=== PATIENT | female | born 1960 | race Caucasian/White ===

== ENCOUNTER 2022-04-07 17:14 | Emergency (ER) | payer OTHER ==
[2022-04-07 17:40] VITALS: TEMP 98.8
--- NOTE | 2022-04-07 18:10 | ED ---
Abdominal Pain HPI - General Chief Complaint: Abdominal Pain Stated Complaint: Rib & abd pain,SOB Time Seen by Provider: 04/07/22 17:43 Source: patient Mode of arrival: ambulatory Limitations: no limitations - History of Present Illness Initial Comments: 61-year-old female presents to emergency departments with abdominal pain and distention. Reports that she's had pain under her left breast which extends into her abdomen which has been going on for a period of time however is getting worse. She feels like she is having more abdominal distention. Reports to increased frequency in urination to the point where she has had some incontinence. She admits to constipation which has gotten more significant. She uses fiber supplements to make her go. No fevers or chills. No jaundice. Denies use of [id number] Tylenol but does take [place] as prescribed. No alcohol use. She admits to a history of tachycardia and takes propranolol however this medication usually does not controlled her symptoms well. She denies any vaginal bleeding or discharge. No history of HI. Does admit to some exertional shortness of breath. No other alleviating, precipitating or modifying factors - Related Data Home Medications Medication Instructions Recorded Confirmed Citalopram Hydrobromide [CeleXA] 20 mg PO DIRECTED 04/07/22 04/07/22 Dextroamphetamine/Amphetamine 20 mg PO DAILY@1300 04/07/22 04/07/22 [Adderall Xr 20 mg Capsule] Dextroamphetamine/Amphetamine 30 mg PO DAILY@0700 04/07/22 04/07/22 [Adderall Xr 30 mg Capsule] HYDROcodone/APAP 7.5-325MG [[place] 1 tab PO QID PRN 04/07/22 04/07/22 7.5-325] Propranolol LA [Inderal LA] 80 mg PO DAILY 04/07/22 04/07/22 Triamterene/Hydrochlorothiazid 1 tab PO DAILY 04/07/22 04/07/22 [Triamterene-Hctz 37.5-25 mg Tb] clonazePAM [KlonoPIN] 0.5 mg PO BID PRN 04/07/22 04/07/22 Allergies Allergy/AdvReac Type Severity Reaction Status Date / Time risperidone [From Risperdal] AdvReac SPASMS, Verified 04/07/22 21:28 AGGITATION Review of Systems ROS Statement: Those systems with pertinent positive or pertinent negative responses have been documented in the HPI. ROS Other: All systems not noted in ROS Statement are negative. Past Medical History Additional Past Medical History / Comment(s): SVT History of Any Multi-Drug Resistant Organisms: None Reported Past Surgical History: Appendectomy, Hysterectomy, Orthopedic Surgery Additional Past Surgical History / Comment(s): knee surgery Past Psychological History: Depression Smoking Status: Current every day smoker Past Alcohol Use History: None Reported Past Drug Use History: None Reported General Exam Limitations: no limitations General appearance: alert, in no apparent distress Head exam: Present: atraumatic, normocephalic, normal inspection Eye exam: Present: normal appearance, PERRL, EOMI. Absent: scleral icterus, conjunctival injection, periorbital swelling ENT exam: Present: normal exam, mucous membranes moist Neck exam: Present: normal inspection. Absent: tenderness, meningismus, lymphadenopathy Respiratory exam: Present: normal lung sounds bilaterally. Absent: respiratory distress, wheezes, rales, rhonchi, stridor Cardiovascular Exam: Present: normal rhythm, tachycardia, normal heart sounds. Absent: systolic murmur, diastolic murmur, rubs, gallop, clicks GI/Abdominal exam: Present: soft, distended, tenderness (Generalized), normal bowel sounds, other (No fluid wave). Absent: guarding, rebound, rigid Extremities exam: Present: normal inspection, full ROM, normal capillary refill. Absent: tenderness, pedal edema, joint swelling, calf tenderness Back exam: Present: normal inspection Neurological exam: Present: alert, oriented X3, CN II-XII intact Psychiatric exam: Present: normal affect, normal mood Skin exam: Present: warm, dry, intact, normal color. Absent: rash Course Vital Signs 04/07/22 04/07/22 04/07/22 17:35 19:02 21:38 Temperature 98.8 F Pulse Rate 129 H 115 H 85 Respiratory 22 18 15 Rate Blood Pressure 140/72 125/78 133/84 O2 Sat by Pulse 99 94 L 98 Oximetry Medical Decision Making - Medical Decision Making Upon arrival patient is placed into room 1. A thorough history and physical exam was performed. IV access was established and laboratory studies are conducted. Patient was given a dose of morphine for her pain. Laboratory studies are reviewed and demonstrate elevated d-dimer 0.82. Lactic acid is 2.8. Troponin negative. Urinalysis demonstrates small leukocyte esterase with rare bacteria. Due to the elevated d-dimer I did complete a CT of the chest. This demonstrates no evidence of pulmonary embolism. Diffuse groundglass attenuation to the lungs bilaterally. Enlarging pulmonate trunk indicating sequelae of pulmonary hypertension. CT of the abdomen and pelvis demonstrates hepatomegaly. Results are discussed the patient. I did recommend overnight observation for echo and cardiology evaluation. Patient would prefer to obtain outpatient evaluation. She is aware of the risks of leaving and the need to return for any new or worsening symptoms. Patient is of sound mind and capable of making her own decisions. I do feel that the patient needs an echo, EGD and colonoscopy for further evaluation of her symptoms. Patient was agreeable to this plan and discharged home in stable condition - Lab Data Result diagrams: 04/07/22 18:29 04/07/22 18:29 Lab Results 04/07/22 04/07/22 04/07/22 Range/Units 18:29 18:29 18:29 WBC 8.0 (3.8-10.6) k/uL RBC 4.94 (3.80-5.40) m/uL Hgb 15.5 (11.4-16.0) gm/dL Hct 44.4 (34.0-46.0) % MCV 89.8 (80.0-100.0) fL MCH 31.4 (25.0-35.0) pg MCHC 34.9 (31.0-37.0) g/dL RDW 14.0 (11.5-15.5) % Plt Count 246 (150-450) k/uL MPV 8.5 Neutrophils % 68 % Lymphocytes % 21 % Monocytes % 6 % Eosinophils % 1 % Basophils % 1 % Neutrophils # 5.4 (1.3-7.7) k/uL Lymphocytes # 1.7 (1.0-4.8) k/uL Monocytes # 0.5 (0-1.0) k/uL Eosinophils # 0.1 (0-0.7) k/uL Basophils # 0.1 (0-0.2) k/uL PT 10.2 (9.0-12.0) sec INR 0.9 (<1.2) APTT 26.4 (22.0-30.0) sec D-Dimer 0.82 H (<0.60) mg/L FEU Sodium 138 (137-145) mmol/L Potassium 3.5 (3.5-5.1) mmol/L Chloride 99 (98-107) mmol/L Carbon Dioxide 23 (22-30) mmol/L Anion Gap 16 mmol/L BUN 21 H (7-17) mg/dL Creatinine 0.71 (0.52-1.04) mg/dL Est GFR (CKD-EPI)AfAm >90 (>60 ml/min/1.73 sqM) Est GFR (CKD-EPI)NonAf >90 (>60 ml/min/1.73 sqM) Glucose 111 H (74-99) mg/dL Lactic Ac Sepsis Rflx Plasma Lactic Acid Terrence (0.7-2.0) mmol/L Calcium 9.4 (8.4-10.2) mg/dL Total Bilirubin 0.8 (0.2-1.3) mg/dL AST 46 H (14-36) U/L ALT 38 H (4-34) U/L Alkaline Phosphatase 125 (38-126) U/L Troponin I (0.000-0.034) ng/mL Total Protein 8.2 (6.3-8.2) g/dL Albumin 5.1 H (3.5-5.0) g/dL Lipase 42 (23-300) U/L Urine Color Urine Appearance (Clear) Urine pH (5.0-8.0) Ur Specific [place] (1.001-1.035) Urine Protein (Negative) Urine Glucose (UA) (Negative) Urine Ketones (Negative) Urine Blood (Negative) Urine Nitrite (Negative) Urine Bilirubin (Negative) Urine Urobilinogen (<2.0) mg/dL Ur Leukocyte Esterase (Negative) Urine RBC (0-5) /hpf Urine WBC (0-5) /hpf Ur Squamous Epith Cells (0-4) /hpf Urine Bacteria (None) /hpf Hyaline Casts (0-2) /lpf Urine Mucus (None) /hpf 04/07/22 04/07/22 04/07/22 Range/Units 18:29 18:29 18:37 WBC (3.8-10.6) k/uL RBC (3.80-5.40) m/uL Hgb (11.4-16.0) gm/dL Hct (34.0-46.0) % MCV (80.0-100.0) fL MCH (25.0-35.0) pg MCHC (31.0-37.0) g/dL RDW (11.5-15.5) % Plt Count (150-450) k/uL MPV Neutrophils % % Lymphocytes % % Monocytes % % Eosinophils % % Basophils % % Neutrophils # (1.3-7.7) k/uL Lymphocytes # (1.0-4.8) k/uL Monocytes # (0-1.0) k/uL Eosinophils # (0-0.7) k/uL Basophils # (0-0.2) k/uL PT (9.0-12.0) sec INR (<1.2) APTT (22.0-30.0) sec D-Dimer (<0.60) mg/L FEU Sodium (137-145) mmol/L Potassium (3.5-5.1) mmol/L Chloride (98-107) mmol/L Carbon Dioxide (22-30) mmol/L Anion Gap mmol/L BUN (7-17) mg/dL Creatinine (0.52-1.04) mg/dL Est GFR (CKD-EPI)AfAm (>60 ml/min/1.73 sqM) Est GFR (CKD-EPI)NonAf (>60 ml/min/1.73 sqM) Glucose (74-99) mg/dL Lactic Ac Sepsis Rflx Plasma Lactic Acid Terrence 2.8 H* (0.7-2.0) mmol/L Calcium (8.4-10.2) mg/dL Total Bilirubin (0.2-1.3) mg/dL AST (14-36) U/L ALT (4-34) U/L Alkaline Phosphatase (38-126) U/L Troponin I <0.012 (0.000-0.034) ng/mL Total Protein (6.3-8.2) g/dL Albumin (3.5-5.0) g/dL Lipase (23-300) U/L Urine Color Yellow Urine Appearance Clear (Clear) Urine pH 5.5 (5.0-8.0) Ur Specific [place] 1.027 (1.001-1.035) Urine Protein Trace H (Negative) Urine Glucose (UA) Negative (Negative) Urine Ketones Negative (Negative) Urine Blood Small H (Negative) Urine Nitrite Negative (Negative) Urine Bilirubin Negative (Negative) Urine Urobilinogen <2.0 (<2.0) mg/dL Ur Leukocyte Esterase Small H (Negative) Urine RBC 4 (0-5) /hpf Urine WBC 3 (0-5) /hpf Ur Squamous Epith Cells 3 (0-4) /hpf Urine Bacteria Rare H (None) /hpf Hyaline Casts 5 H (0-2) /lpf Urine Mucus Few H (None) /hpf 04/07/22 Range/Units 19:07 WBC (3.8-10.6) k/uL RBC (3.80-5.40) m/uL Hgb (11.4-16.0) gm/dL Hct (34.0-46.0) % MCV (80.0-100.0) fL MCH (25.0-35.0) pg MCHC (31.0-37.0) g/dL RDW (11.5-15.5) % Plt Count (150-450) k/uL MPV Neutrophils % % Lymphocytes % % Monocytes % % Eosinophils % % Basophils % % Neutrophils # (1.3-7.7) k/uL Lymphocytes # (1.0-4.8) k/uL Monocytes # (0-1.0) k/uL Eosinophils # (0-0.7) k/uL Basophils # (0-0.2) k/uL PT (9.0-12.0) sec INR (<1.2) APTT (22.0-30.0) sec D-Dimer (<0.60) mg/L FEU Sodium (137-145) mmol/L Potassium (3.5-5.1) mmol/L Chloride (98-107) mmol/L Carbon Dioxide (22-30) mmol/L Anion Gap mmol/L BUN (7-17) mg/dL Creatinine (0.52-1.04) mg/dL Est GFR (CKD-EPI)AfAm (>60 ml/min/1.73 sqM) Est GFR (CKD-EPI)NonAf (>60 ml/min/1.73 sqM) Glucose (74-99) mg/dL Lactic Ac Sepsis Rflx Y Plasma Lactic Acid [place] (0.7-2.0) mmol/L Calcium (8.4-10.2) mg/dL Total Bilirubin (0.2-1.3) mg/dL AST (14-36) U/L ALT (4-34) U/L Alkaline Phosphatase (38-126) U/L Troponin I (0.000-0.034) ng/mL Total Protein (6.3-8.2) g/dL Albumin (3.5-5.0) g/dL Lipase (23-300) U/L Urine Color Urine Appearance (Clear) Urine pH (5.0-8.0) Ur Specific [place] (1.001-1.035) Urine Protein (Negative) Urine Glucose (UA) (Negative) Urine Ketones (Negative) Urine Blood (Negative) Urine Nitrite (Negative) Urine Bilirubin (Negative) Urine Urobilinogen (<2.0) mg/dL Ur Leukocyte Esterase (Negative) Urine RBC (0-5) /hpf Urine WBC (0-5) /hpf Ur Squamous Epith Cells (0-4) /hpf Urine Bacteria (None) /hpf Hyaline Casts (0-2) /lpf Urine Mucus (None) /hpf - EKG Data EKG Comments: EKG demonstrates sinus tachycardia with a rate of 121. W[place] interval 198. QRS 72. QTC of 410. No acute ST segment elevations or depressions Disposition Clinical Impression: Chest pain, Tachycardia, Abdominal distension, Pulmonary hypertension Disposition: HOME SELF-CARE Condition: Stable Instructions (If sedation given, give patient instructions): Chest Pain (ED) Additional Instructions: You need to follow up with a dba developer for your tachycardia. I recommend an echo of you heart as you are experiencing shortness of breath when your walk. We did see signs of pulmonary hypertension on your imaging therefore a pulmonary consultation is warranted if echo is normal. For your abdominal pain, next imaging study should be EGD and colonoscopy. I did offer hospital admission. Should you have any new or worsening symptoms, please return to the ED. See your doctor in 2-4 days to start the remainder of your workup which was listed above. Is patient prescribed a controlled substance at d/c from ED?: No Referrals: Nirav Santos MD [Primary Care Provider] - 1-2 days Time of Disposition: 21:35
[2022-04-07] MEDS ORDERED: MORPHINE SULFATE 4 MG/ML SYRINGE IVP STA (18:11)
[2022-04-07 18:39] LABS: Basophils # (A) 0.1 k/uL (0-0.2); Basophils % (A) 1 %; Eosinophils # (A) 0.1 k/uL (0-0.7); Eosinophils % (A) 1 %; HCT 44.4 % (34.0-46.0); HGB 15.5 gm/dL (11.4-16.0); Lymphocytes # (A) 1.7 k/uL (1.0-4.8); Lymphocytes % (A) 21 %; MCH 31.4 pg (25.0-35.0); MCHC 34.9 g/dL (31.0-37.0); MCV 89.8 fL (80.0-100.0); Mean Platelet Volume 8.5; Monocytes # (A) 0.5 k/uL (0-1.0); Monocytes % (A) 6 %; Neutrophils # (A) 5.4 k/uL (1.3-7.7); Neutrophils % (A) 68 %; Platelet Count 246 k/uL (150-450); RBC 4.94 m/uL (3.80-5.40)
[2022-04-07 18:51] LABS: ALT 38 U/L (4-34); AST 46 U/L (14-36); African American GFR (CKD) >90 (>60 ml/min/1.73 sqM); Albumin 5.1 g/dL (3.5-5.0); Alkaline Phosphatase 125 U/L (38-126); Anion Gap 16 mmol/L; Blood Urea Nitrogen 21 mg/dL (7-17); Calcium 9.4 mg/dL (8.4-10.2); Carbon Dioxide 23 mmol/L (22-30); Chloride 99 mmol/L (98-107); Glucose 111 mg/dL (74-99); INR 0.9 (<1.2); Lipase 42 U/L (23-300); Non-African American GFR(CKD) >90 (>60 ml/min/1.73 sqM); Partial Thromboplastin Time 26.4 sec (22.0-30.0); Potassium 3.5 mmol/L (3.5-5.1); Prothrombin Time 10.2 sec (9.0-12.0); Sodium 138 mmol/L (137-145); Total Bilirubin 0.8 mg/dL (0.2-1.3); Total Protein 8.2 g/dL (6.3-8.2)
[2022-04-07 18:51] LABS: Appearance,Urine Clear (Clear); Bacteria,Urine Rare /hpf; Bilirubin,Urine Negative (Negative); Blood,Urine Small (Negative); Color,Urine Yellow; Glucose,Urine (UA) Negative (Negative); Hyaline Casts,Urine 5 /lpf (0-2); Ketones,Urine Negative (Negative); Leukocyte Esterase,Urine Small (Negative); Mucus,Urine Few /hpf; Nitrite,Urine Negative (Negative); PH, Urine 5.5 (5.0-8.0); Protein,Urine Trace (Negative); RBC,Urine 4 /hpf (0-5); Specific Gravity,Urine 1.027 (1.001-1.035); Squamous Epithelial Cell,Urine 3 /hpf (0-4); Urobilinogen,Urine <2.0 mg/dL (<2.0); WBC,Urine 3 /hpf (0-5)
--- NOTE | 2022-04-07 20:09 | CT ---
EXAMINATION TYPE: CT abdomen pelvis w con CT DLP: 1260.1 mGycm, Automated exposure control for dose reduction was used. DATE OF EXAM: 04/07/2022 7:29 PM COMPARISON: CTA chest and 2021, CT abdomen pelvis 01/03/2015 CLINICAL INDICATION:Female, 61 years old with history of abdominal pain; chest and abdominal pain TECHNIQUE: Axial CT of the abdomen and pelvis. Sagittal and coronal reformats were created on a rocket staff workstation. Contrast used: 100 mL of Isovue 300 with IV Contrast, Oral contrast used: without Oral Contrast FINDINGS: LOWER CHEST: Posterior dependent subsegmental atelectasis is noted. ABDOMEN LIVER: Diffusely hypoattenuating parenchyma. GALLBLADDER AND BILE DUCTS: Unremarkable. PANCREAS: Unremarkable. SPLEEN: Unremarkable. ADRENAL GLANDS: Unremarkable. KIDNEYS AND URETERS: No evidence of hydronephrosis or renal calculus. The ureters are unremarkable. PELVIS BLADDER: Incompletely distended but grossly unremarkable. REPRODUCTIVE: Unremarkable. ABDOMEN & PELVIS STOMACH AND BOWEL: Stomach and duodenum are unremarkable. Scattered diverticula are noted throughout the colon. No evidence of bowel obstruction. PERITONEUM: No evidence of pneumoperitoneum or free fluid. VASCULATURE: Mild atherosclerotic calcifications are present throughout the abdominal aorta and its b ranches. No evidence of aortic aneurysm. MUSCULOSKELETAL: No acute osseous abnormalities LYMPH NODES: No gross evidence for lymphadenopathy. SOFT TISSUE/ABDOMINAL WALL: Unremarkable IMPRESSION: 1. No acute intra-abdominal or intrapelvic process. 2. Hepatic steatosis and other incidental findings as detailed above.
--- NOTE | 2022-04-07 20:15 | CT ---
EXAMINATION TYPE: CT chest angio for PE CT DLP: 1260.1 mGycm, Automated exposure control for dose reduction was used. DATE OF EXAM: 04/07/2022 7:29 PM COMPARISON: CT abdomen pelvis 04/07/2022 CLINICAL INDICATION:Female, 61 years old with history of cp, tachycardia; chest and abdominal pain TECHNIQUE/CONTRAST: CTA scan of the thorax is performed with IV Contrast, patient injected with 100 mL of Isovue 300, pul monary embolism protocol. MIP images are created and reviewed. FINDINGS: Pulmonary Artery: There is no evidence for a filling defect within the pulmonary vasculature to sugge st acute pulmonary embolism. The pulmonary artery is enlarged measuring 3.6 cm in width. Lungs/Pleura: Diffuse ground glass attenuation throughout the lungs bilaterally. This is nonspecific and may be attributed to phase of respiration. Left lingular and bibasilar subsegmental atelectasis. No focal airspace consolidation. No pneumothorax or pleural effusion. Airway: Large airways are patent. Heart: The heart is mildly enlarged for size.. Vasculature: No evidence of aortic aneurysm. Mediastinum: No gross evidence of adenopathy. Musculoskeletal: No acute osseous abnormalities Soft Tissues: Unremarkable. Lower neck: No significant findings. Upper Abdomen: Please pertain to the abdomen dictated separately on same-day CT. IMPRESSION: 1. No evidence of pulmonary embolism. 2. Diffuse groundglass attenuation to the lungs bilaterally. This is nonspecific and may be seen with phase of respiration. Correlate clinically for acute infectious or inflammatory etiologies. 3. Enlarged pulmonary trunk indicating sequelae of pulmonary hypertension.
[2022-04-07 21:39] VITALS: BP 133/84; PULSE 85; RESP 15
== END 2022-04-07 21:50 | disposition home or self-care (01) ==
LOC: EC 17:14
DX: I27.20 Pulmonary hypertension, unspecified (principal); R00.0 Tachycardia, unspecified; F17.200 Nicotine dependence, unspecified, uncomplicated; Z88.8 Allergy status to other drugs, medicaments and biological substances
CPT/HCPCS: 36415; 93005; 85379; 80053; 83605; 83690; 84484; 85025; 85610; 85730; 81001; 71275; 74177; 99285; 96374; Q9967; 96376

== ENCOUNTER 2022-04-22 14:55 | Inpatient (IN) | payer OTHER ==
[2022-04-22 15:52] LABS: Basophils # (A) 0.1 k/uL (0-0.2); Basophils % (A) 1 %; Eosinophils # (A) 0.1 k/uL (0-0.7); Eosinophils % (A) 1 %; HCT 45.9 % (34.0-46.0); HGB 16.1 gm/dL (11.4-16.0); Lymphocytes # (A) 1.8 k/uL (1.0-4.8); Lymphocytes % (A) 20 %; MCH 31.6 pg (25.0-35.0); MCV 90.3 fL (80.0-100.0); Mean Platelet Volume 8.2; Monocytes # (A) 0.4 k/uL (0-1.0); Monocytes % (A) 5 %; Neutrophils # (A) 6.2 k/uL (1.3-7.7); Neutrophils % (A) 70 %; Platelet Count 257 k/uL (150-450); RBC 5.09 m/uL (3.80-5.40); RDW 14.2 % (11.5-15.5); WBC 8.8 k/uL (3.8-10.6)
[2022-04-22 16:00] LABS: ALT 40 U/L (4-34); AST 42 U/L (14-36); African American GFR (CKD) >90 (>60 ml/min/1.73 sqM); Alkaline Phosphatase 118 U/L (38-126); Anion Gap 13 mmol/L; Blood Urea Nitrogen 16 mg/dL (7-17); Calcium 9.9 mg/dL (8.4-10.2); Carbon Dioxide 28 mmol/L (22-30); Chloride 96 mmol/L (98-107); Glucose 104 mg/dL (74-99); Non-African American GFR(CKD) >90 (>60 ml/min/1.73 sqM); Sodium 137 mmol/L (137-145); Total Bilirubin 0.6 mg/dL (0.2-1.3); Total Protein 8.4 g/dL (6.3-8.2)
[2022-04-22 16:01] LABS: INR 0.9 (<1.2); Partial Thromboplastin Time 24.3 sec (22.0-30.0); Prothrombin Time 10.3 sec (9.0-12.0)
[2022-04-22] MEDS ORDERED: LORazepam 2 MG/ML INJ IV STA (16:01)
--- NOTE | 2022-04-22 16:09 | ED ---
General Adult HPI - General Chief complaint: Chest Pain Stated complaint: Chest Pain,Vomiting,Chills Time Seen by Provider: 04/22/22 15:50 Source: patient, RN notes reviewed, old records reviewed Mode of arrival: ambulatory Limitations: no limitations - History of Present Illness Initial comments: This is a 61-year-old female presents emergency Department complaining of chest pain that radiates to her back and her arm. Patient states his been intermi ttent for a year. Patient states she also gets short of breath with it. Patient came in today because the pain got so bad she became nauseated and started vomiting and was extremely lightheaded. Patient states she is a smoker. Patient denies a history of high blood pressure high cholesterol or diabetes. Patient denies any recent fever chills or cough. Patient denies any swelling in her legs or calf tenderness. Patient denies any abdominal pain. Patient denies being nauseated currently. Patient states she does have a history of tachycardia and even at rest she's never under 100 beats a minute. - Related Data Home Medications Medication Instructions Recorded Confirmed Citalopram Hydrobromide [CeleXA] 20 mg PO DIRECTED 04/07/22 04/07/22 Dextroamphetamine/Amphetamine 20 mg PO DAILY@1300 04/07/22 04/07/22 [Adderall Xr 20 mg Capsule] Dextroamphetamine/Amphetamine 30 mg PO DAILY@0700 04/07/22 04/07/22 [Adderall Xr 30 mg Capsule] HYDROcodone/APAP 7.5-325MG [[place] 1 tab PO QID PRN 04/07/22 04/07/22 7.5-325] Propranolol LA [Inderal LA] 80 mg PO DAILY 04/07/22 04/07/22 Triamterene/Hydrochlorothiazid 1 tab PO DAILY 04/07/22 04/07/22 [Triamterene-Hctz 37.5-25 mg Tb] clonazePAM [KlonoPIN] 0.5 mg PO BID PRN 04/07/22 04/07/22 Allergies Allergy/AdvReac Type Severity Reaction Status Date / Time risperidone [From Risperdal] AdvReac SPASMS, Verified 04/22/22 15:28 AGGITATION Review of Systems ROS Statement: Those systems with pertinent positive or pertinent negative responses have been documented in the HPI. ROS Other: All systems not noted in ROS Statement are negative. Past Medical History Additional Past Medical History / Comment(s): SVT History of Any Multi-Drug Resistant Organisms: None Reported Past Surgical History: Appendectomy, Hysterectomy, Orthopedic Surgery Additional Past Surgical History / Comment(s): knee surgery Past Psychological History: Depression Smoking Status: Current every day smoker Past Alcohol Use History: None Reported Past Drug Use History: None Reported General Exam - General Exam Comments Initial Comments: GENERAL: Patient is well-developed and well-nourished. Patient is nontoxic and well- hydrated and is in mild distress. ENT: Neck is soft and supple. No significant lymphadenopathy is noted. Oropharynx is clear. Moist mucous membranes. Neck has full range of motion without eliciting any pain. EYES: The sclera were anicteric and conjunctiva were pink and moist. Extraocular movements were intact and pupils were equal round and reactive to light. Eyelids were unremarkable. PULMONARY: Unlabored respirations. Good breath sounds bilaterally. No audible rales rhonchi or wheezing was noted. CARDIOVASCULAR: Patient is tachycardic at about 125 beats a minute. ABDOMEN: Soft and nontender with normal bowel sounds. SKIN: Skin is clear with no lesions or rashes and otherwise unremarkable. NEUROLOGIC: Patient is alert and oriented x3. Cranial nerves II through XII are grossly intact. Motor and sensory are also intact. Normal speech, volume and content. Symmetrical smile. MUSCULOSKELETAL: Normal extremities with adequate strength and full range of motion. No lower extremity swelling or edema. No calf tenderness. LYMPHATICS: No significant lymphadenopathy is noted PSYCHIATRIC: Normal psychiatric evaluation. Limitations: no limitations Course Vital Signs 04/22/22 04/22/22 04/22/22 15:26 15:56 17:30 Temperature 98.1 F Pulse Rate 114 H 122 H 105 H Pulse Rate [ 122 H Injection Operator ] Respiratory 22 30 H 18 Rate Blood Pressure 106/60 154/124 130/85 O2 Sat by Pulse 96 98 97 Oximetry 04/22/22 18:44 Temperature Pulse Rate 110 H Pulse Rate [ Injection Operator ] Respiratory 22 Rate Blood Pressure 130/85 O2 Sat by Pulse 97 Oximetry Medical Decision Making - Medical Decision Making I interpreted EKG. EKG shows sinus tachycardia at 116 bpm [place] interval is 183 QRS 75 QT interval 344 QTC is 413. Patient's EKG shows no ST segment elevation or depression. I looked at the patient's old records at vital signs to compare to these vital signs. Patient was tachycardic at that time as well. I looked at the old CAT scan that the patient had previous had done in the emergency department. To again compared to this CAT scan. I interpreted this Scan. This CAT of chest scan showed no infiltrate and no pulmonary pleasant. I spoke with Dr. Spencer he agreed to admit the patient admitted the patient I wrote admitting orders. - Lab Data Result diagrams: 04/22/22 15:32 04/22/22 15:32 Lab Results 04/22/22 04/22/22 04/22/22 Range/Units 15:32 15:32 15:32 WBC 8.8 (3.8-10.6) k/uL RBC 5.09 (3.80-5.40) m/uL Hgb 16.1 H (11.4-16.0) gm/dL Hct 45.9 (34.0-46.0) % MCV 90.3 (80.0-100.0) fL MCH 31.6 (25.0-35.0) pg MCHC 35.0 (31.0-37.0) g/dL RDW 14.2 (11.5-15.5) % Plt Count 257 (150-450) k/uL MPV 8.2 Neutrophils % 70 % Lymphocytes % 20 % Monocytes % 5 % Eosinophils % 1 % Basophils % 1 % Neutrophils # 6.2 (1.3-7.7) k/uL Lymphocytes # 1.8 (1.0-4.8) k/uL Monocytes # 0.4 (0-1.0) k/uL Eosinophils # 0.1 (0-0.7) k/uL Basophils # 0.1 (0-0.2) k/uL PT 10.3 (9.0-12.0) sec INR 0.9 (<1.2) APTT 24.3 (22.0-30.0) sec D-Dimer (<0.60) mg/L FEU Sodium 137 (137-145) mmol/L Potassium 4.0 (3.5-5.1) mmol/L Chloride 96 L (98-107) mmol/L Carbon Dioxide 28 (22-30) mmol/L Anion Gap 13 mmol/L BUN 16 (7-17) mg/dL Creatinine 0.68 (0.52-1.04) mg/dL Est GFR (CKD-EPI)AfAm >90 (>60 ml/min/1.73 sqM) Est GFR (CKD-EPI)NonAf >90 (>60 ml/min/1.73 sqM) Glucose 104 H (74-99) mg/dL Calcium 9.9 (8.4-10.2) mg/dL Total Bilirubin 0.6 (0.2-1.3) mg/dL AST 42 H (14-36) U/L ALT 40 H (4-34) U/L Alkaline Phosphatase 118 (38-126) U/L Troponin I (0.000-0.034) ng/mL Total Protein 8.4 H (6.3-8.2) g/dL Albumin 5.0 (3.5-5.0) g/dL TSH (0.465-4.680) mIU/L Urine Opiates Screen (NotDetected) Ur Oxycodone Screen (NotDetected) Urine Methadone Screen (NotDetected) Ur Propoxyphene Screen (NotDetected) Ur Barbiturates Screen (NotDetected) U Tricyclic Antidepress (NotDetected) Ur Phencyclidine Scrn (NotDetected) Ur Amphetamines Screen (NotDetected) U Methamphetamines Scrn (NotDetected) U Benzodiazepines Scrn (NotDetected) Urine Cocaine Screen (NotDetected) U Marijuana (THC) Screen (NotDetected) Coronavirus (PCR) (Not Detectd) 04/22/22 04/22/22 04/22/22 Range/Units 15:32 15:32 15:32 WBC (3.8-10.6) k/uL RBC (3.80-5.40) m/uL Hgb (11.4-16.0) gm/dL Hct (34.0-46.0) % MCV (80.0-100.0) fL MCH (25.0-35.0) pg MCHC (31.0-37.0) g/dL RDW (11.5-15.5) % Plt Count (150-450) k/uL MPV Neutrophils % % Lymphocytes % % Monocytes % % Eosinophils % % Basophils % % Neutrophils # (1.3-7.7) k/uL Lymphocytes # (1.0-4.8) k/uL Monocytes # (0-1.0) k/uL Eosinophils # (0-0.7) k/uL Basophils # (0-0.2) k/uL PT (9.0-12.0) sec INR (<1.2) APTT (22.0-30.0) sec D-Dimer 0.67 H (<0.60) mg/L FEU Sodium (137-145) mmol/L Potassium (3.5-5.1) mmol/L Chloride (98-107) mmol/L Carbon Dioxide (22-30) mmol/L Anion Gap mmol/L BUN (7-17) mg/dL Creatinine (0.52-1.04) mg/dL Est GFR (CKD-EPI)AfAm (>60 ml/min/1.73 sqM) Est GFR (CKD-EPI)NonAf (>60 ml/min/1.73 sqM) Glucose (74-99) mg/dL Calcium (8.4-10.2) mg/dL Total Bilirubin (0.2-1.3) mg/dL AST (14-36) U/L ALT (4-34) U/L Alkaline Phosphatase (38-126) U/L Troponin I <0.012 (0.000-0.034) ng/mL Total Protein (6.3-8.2) g/dL Albumin (3.5-5.0) g/dL TSH 1.650 (0.465-4.680) mIU/L Urine Opiates Screen (NotDetected) Ur Oxycodone Screen (NotDetected) Urine Methadone Screen (NotDetected) Ur Propoxyphene Screen (NotDetected) Ur Barbiturates Screen (NotDetected) U Tricyclic Antidepress (NotDetected) Ur Phencyclidine Scrn (NotDetected) Ur Amphetamines Screen (NotDetected) U Methamphetamines Scrn (NotDetected) U Benzodiazepines Scrn (NotDetected) Urine Cocaine Screen (NotDetected) U Marijuana (THC) Screen (NotDetected) Coronavirus (PCR) (Not Detectd) 04/22/22 04/22/22 Range/Units 17:01 18:20 WBC (3.8-10.6) k/uL RBC (3.80-5.40) m/uL Hgb (11.4-16.0) gm/dL Hct (34.0-46.0) % MCV (80.0-100.0) fL MCH (25.0-35.0) pg MCHC (31.0-37.0) g/dL RDW (11.5-15.5) % Plt Count (150-450) k/uL MPV Neutrophils % % Lymphocytes % % Monocytes % % Eosinophils % % Basophils % % Neutrophils # (1.3-7.7) k/uL Lymphocytes # (1.0-4.8) k/uL Monocytes # (0-1.0) k/uL Eosinophils # (0-0.7) k/uL Basophils # (0-0.2) k/uL PT (9.0-12.0) sec INR (<1.2) APTT (22.0-30.0) sec D-Dimer (<0.60) mg/L FEU Sodium (137-145) mmol/L Potassium (3.5-5.1) mmol/L Chloride (98-107) mmol/L Carbon Dioxide (22-30) mmol/L Anion Gap mmol/L BUN (7-17) mg/dL Creatinine (0.52-1.04) mg/dL Est GFR (CKD-EPI)AfAm (>60 ml/min/1.73 sqM) Est GFR (CKD-EPI)NonAf (>60 ml/min/1.73 sqM) Glucose (74-99) mg/dL Calcium (8.4-10.2) mg/dL Total Bilirubin (0.2-1.3) mg/dL AST (14-36) U/L ALT (4-34) U/L Alkaline Phosphatase (38-126) U/L Troponin I (0.000-0.034) ng/mL Total Protein (6.3-8.2) g/dL Albumin (3.5-5.0) g/dL TSH (0.465-4.680) mIU/L Urine Opiates Screen Detected H (NotDetected) Ur Oxycodone Screen Not Detected (NotDetected) Urine Methadone Screen Not Detected (NotDetected) Ur Propoxyphene Screen Not Detected (NotDetected) Ur Barbiturates Screen Not Detected (NotDetected) U Tricyclic Antidepress Not Detected (NotDetected) Ur Phencyclidine Scrn Not Detected (NotDetected) Ur Amphetamines Screen Detected H (NotDetected) U Methamphetamines Scrn Not Detected (NotDetected) U Benzodiazepines Scrn Detected H (NotDetected) Urine Cocaine Screen Not Detected (NotDetected) U Marijuana (THC) Screen Not Detected (NotDetected) Coronavirus (PCR) Not Detected (Not Detectd) Disposition Clinical Impression: Chest pain, Extravasation of intravenous contrast medium Disposition: ADMITTED IP TO THIS HOSP Referrals: Nirav Santos MD [Primary Care Provider] - 1-2 days Time of Disposition: 19:52
--- NOTE | 2022-04-22 16:33 | XR ---
EXAMINATION TYPE: XR chest 2V DATE OF EXAM: 04/22/2022 COMPARISON: None INDICATION: Chest pain short of breath TECHNIQUE: Frontal and lateral views of the chest are obtained. FINDINGS: The heart size is normal. The pulmonary vasculature is normal. The lungs are clear. IMPRESSION: 1. No acute pulmonary process.
--- NOTE | 2022-04-22 17:48 | CT ---
EXAMINATION TYPE: CT chest angio for PE DATE OF EXAM: 04/22/2022 COMPARISON: 04/07/2022 HISTORY: Shortness of breath, elevated d-dimer CT DLP: 345.5 mGycm Automated exposure control for dose reduction was used. CONTRAST: Performed with IV Contrast, patient injected with 100 mL of Isovue 370. There are Three-D postprocessed images. There is some mild pulmonary emphysema. The lungs are clear of consolidation. No evidence of a pulmon marilyn mass. No pleural effusion. Heart is borderline enlarged. No pericardial effusion. There are no hi lar masses. There are a few paratracheal lymph nodes up to 1.5 cm. Thoracic aorta is intact. No aneur ysm or dissection. There is no evidence of filling defect in the pulmonary arteries. The upper abdominal soft tissues ar e intact. The thoracic spine is intact. No compression fracture. IMPRESSION: No evidence of pulmonary embolism. No suspicious pulmonary mass. There are some paratracheal mediastinal lymph nodes which are slightly increased compared to last exa m and are nonspecific.
[2022-04-22 18:44] LABS: Amphetamine Screen,Urine Detected (NotDetected); Barbiturate Screen,Urine Not Detected (NotDetected); Benzodiazepines Screen,Urine Detected (NotDetected); Cocaine Screen,Urine Not Detected (NotDetected); Methadone Screen, Urine Not Detected (NotDetected); Opiate Screen,Urine Detected (NotDetected); Oxycodone Screen, Urine Not Detected (NotDetected); Phencyclidine Screen,Urine Not Detected (NotDetected); Tricyclic Antidepressant,Urine Not Detected (NotDetected); Urn Cannabinoid Scrn Not Detected (NotDetected)
[2022-04-22] MEDS ORDERED: NITROGLYCERIN SL TABS 0.4 MG TAB SUBLINGUAL PRN (19:56)
[2022-04-23] MEDS ORDERED: ALPRAZolam 0.5 MG TAB PO PRN (00:29)
[2022-04-23] MEDS ORDERED: NON FORMULARY DRUG (Citalopram Hydrobromide [Celexa] 40 MG Tablet) PO SCH (00:30)
--- NOTE | 2022-04-23 00:39 | P.HPIM ---
History of Present Illness H&P Date: 04/22/22 Chief Complaint: chest pain 61 year old female with tachycardia monique comes in for evaluation of episodes of chest pain and lightheadedness. she had multiple visits over the past week for this problem , she reports dyspnea with activity , she is only able to walk short distance before she starts having cold sweats , dizziness, and starts gasping for air. today this e pisodes was associated with nausea, vomiting , SOB, and lightheadedness. she was scheduled to have a stress test as outpatient next week. she also reports LUQ abd pain , with abd bloating and distention, no GI bleeding, no diarrhea. no urinary changes. she does report having history of tachycardia , denies any history of cardiac disease otherwise, or blood clots. she admits to smoking, but denies illicit drugs or alcohol . in the ED , EKG showed tachycardia, trops negative CTA of the chest showed no acute PE , however, the contrast dye has extravasated in her right hand which is currently swollen and painful . Review of Systems Pertinent positives as noted in HPI. All other systems were reviewed and are negative Past Medical History Additional Past Medical History / Comment(s): SVT History of Any Multi-Drug Resistant Organisms: None Reported Past Surgical History: Appendectomy, Hysterectomy, Orthopedic Surgery Additional Past Surgical History / Comment(s): knee surgery Past Psychological History: Depression Smoking Status: Current every day smoker Past Alcohol Use History: None Reported Past Drug Use History: None Reported - Past Family History familyi Family Medical History: Coronary Artery Disease (CAD) Additional Family Medical History / Comment(s): heart disease Medications and Allergies Home Medications Medication Instructions Recorded Confirmed Type Citalopram Hydrobromide [CeleXA] 20 mg PO DIRECTED 04/07/22 04/22/22 History Dextroamphetamine/Amphetamine 20 mg PO DAILY@1200 04/07/22 04/22/22 History [Adderall Xr 20 mg Capsule] Dextroamphetamine/Amphetamine 30 mg PO DAILY@0600 04/07/22 04/22/22 History [Adderall Xr 30 mg Capsule] HYDROcodone/APAP 7.5-325MG [[place] 1 tab PO QID PRN 04/07/22 04/22/22 History 7.5-325] Propranolol LA [Inderal LA] 80 mg PO DAILY 04/07/22 04/22/22 History Triamterene/Hydrochlorothiazid 1 tab PO DAILY 04/07/22 04/22/22 History [Triamterene-Hctz 37.5-25 mg Tb] clonazePAM [KlonoPIN] 0.5 mg PO BID PRN 04/07/22 04/22/22 History Allergies Allergy/AdvReac Type Severity Reaction Status Date / Time risperidone [From Risperdal] AdvReac SPASMS, Verified 04/22/22 19:44 AGGITATION Physical Exam Vitals: Vital Signs Temp Pulse Pulse Resp BP Pulse Ox 04/22/22 18:44 110 H 22 130/85 97 04/22/22 17:30 105 H 18 130/85 97 04/22/22 15:56 122 H 122 H 30 H 154/124 98 04/22/22 15:26 98.1 F 114 H 22 106/60 96 Intake and Output 04/22/22 04/22/22 04/22/22 06:59 14:59 22:59 Other: Weight 77.111 kg My examConstitutional: No acute distress, conversant, pleasant Eyes: Anicteric sclerae, moist conjunctiva, Pupils equal round reactive to light ENMT: NC/AT Oropharynx clear, no erythema, or exudates Neck: Supple, no masses, or JVD No carotid bruits No thyromegaly Lungs: Clear to auscultation Clear to percussion Normal respiratory effort, no accessory muscle use Cardiovascular: Heart tachycardia No murmurs, gallops, or rubs No peripheral edema Abdominal: Soft Nontender, no guarding, rebound or rigidity Abdomen moving with respiration Normoactive bowel sounds No hepatomegaly, No splenomegaly No palpable mass No abdominal wall hernia noted Skin: Normal temperature, tone, texture, turgor No induration No subcutaneous nodules No rash, lesions No ulcers Extremities: right hand swelling due to extravasation of the contrast dye , limitation in the range of movement of the right fingers due to hand swelling , No digital cyanosis No clubbing Pedal pulses intact and symmetrical Radial pulses intact and symmetrical No calf tenderness Psychiatric: Alert and oriented to person, place and time Appropriate affect fair judgement Neuro Muscles Strength 5/5 in all 4 extremities Sensation to light touch grossly present throughout Cranial nerves II-XII grossly intact No focal sensory deficits Lymphatics: no palpable cervical or supraclavicular , lymph nodes Results CBC & Chem 7: 04/22/22 15:32 04/22/22 15:32 Labs: Abnormal Lab Results - Last 24 Hours (Table) 04/22/22 04/22/22 04/22/22 Range/Units 15:32 15:32 15:32 Hgb 16.1 H (11.4-16.0) gm/dL D-Dimer 0.67 H (<0.60) mg/L FEU Chloride 96 L (98-107) mmol/L Glucose 104 H (74-99) mg/dL AST 42 H (14-36) U/L ALT 40 H (4-34) U/L Total Protein 8.4 H (6.3-8.2) g/dL Urine Opiates Screen (NotDetected) Ur Amphetamines Screen (NotDetected) U Benzodiazepines Scrn (NotDetected) 04/22/22 Range/Units 18:20 Hgb (11.4-16.0) gm/dL D-Dimer (<0.60) mg/L FEU Chloride (98-107) mmol/L Glucose (74-99) mg/dL AST (14-36) U/L ALT (4-34) U/L Total Protein (6.3-8.2) g/dL Urine Opiates Screen Detected H (NotDetected) Ur Amphetamines Screen Detected H (NotDetected) U Benzodiazepines Scrn Detected H (NotDetected) Assessment and Plan Assessment: atypical chest pain rule out ACS EKG no acute changes CXR no acute pathology trops negative X2 patient monitor monitor vital signs ASA, statin cardiology consult A1c, lipid panel , TSH pain control CTA no acute PE sinus tachycardia history of SVT check echo check TSH continue propranolol right hand swelling , 2/2 extravasation of the contrast dye apply warm or cold compress for comfort, elevation of the hand pain control anxiety PRN xanax tobacco smoking counseled to quit smoking full code Heparin sc tid
[2022-04-23] MEDS: NITROGLYCERIN OINT 1 INCH/GM PACKET TOPICAL SCH ×2 (01:34→05:33)
[2022-04-23] MEDS ORDERED: DOBUTamine DRIP for NUC MED 500 MG in DEXTROSE/WATER 1 250ML.BAG IV PRN (08:54)
[2022-04-23] MEDS ORDERED: ASPIRIN 325 MG TAB PO SCH (09:00)
[2022-04-23] MEDS ORDERED: PROPRANOLOL LA 80 MG CAP.SA.24H PO SCH (09:00)
[2022-04-23 09:22] LABS: Chol/HDL Ratio 4.27 Ratio; LDL Cholesterol,Calculated 99.3 mg/dL (0.0-131.0)
[2022-04-23] MEDS: ASPIRIN 81 MG PO SCH (09:31)
[2022-04-23] MEDS: ATORVASTATIN 20 MG TAB PO SCH (09:31)
[2022-04-23] MEDS: HEPARIN SODIUM,PORCINE/PF 5,000 UNIT/0.5 ML SYRINGE SQ SCH ×2 (09:32→16:41)
[2022-04-23] MEDS: TRIAMTERENE-HCTZ 37.5-25MG 1 EACH TAB PO SCH (10:05)
--- NOTE | 2022-04-23 10:22 | P.CRDCN ---
History of Present Illness History of present illness: HISTORY OF PRESENTING ILLNESS This is a pleasant 61-year-old female past medical history significant for SVT, migraines, anxiety, depression, hypertension, chronic nicotine dependence, family history of coronary artery disease. She follows in the office with Dr. Sims. We have been asked to see in consultation for chest pain. Patient presents to the emergency department with multiple complaints. She has been having left sided chest discomfort, located under her left breast and left axi lla and radiating to her left shoulder. She states her pain comes and goes, no specific factors start the pain. Not attributed to activity. No specific associated symptoms. She sometimes feels dizziness, lightheadedness, diaphoretic, nausea and sometimes vomiting. But also states sometimes these sym ptoms do not come on with the chest pain. She has no specific alleviating factors. There is some tenderness under neath her left breast area. Denies injury. She also complaints of worsening abdominal bloating, pain, tenderness and constipation. She states she is going to follow up with GI outpatient. She currently has no chest discomfort. She denies any history of MT, CAD, Stroke, diabetes, hypertension, dyslipidemia, seizures. She current every day smoker smokes 5 cigarettes per day, trying to quit. Denies alcohol use. No illicit drug use. Family history includes cardiac disease with her mother and father, unknown specifics, siblings have hypertension. DIAGNOSTICS * EKG reveals sinus rhythm, heart rate 93, minimal ST depression inferiorly. Prior EKG was similar findings * Telemetry tracings indicate sinus mechanism, heart rate [id number] * Chest CT no evidence of pulmonary embolism, no suspicious pulmonary mass reported * Laboratory reviewed, troponin negative 3, urine tox positive for opiates, amphetamines, benzodiazepines, triglycerides 254, cholesterol 196, LDL 99, HDL 45, CBC unremarkable, d-dimer 0.67, sodium 137, potassium 4.0, BUN 16, serum creat 0.6, AST 42, ALT 40 * Current home medication includes Celexa, Adderall, Clonopin, triamterenehydrochlorothiazide, propranolol, Clinton REVIEW OF SYSTEMS At the time of my exam: CONSTITUTIONAL: Denies fever or chills. CARDIOVASCULAR: Denies chest pain, shortness of breath, orthopnea, PND or palpitations. RESPIRATORY: Denies cough. GASTROINTESTINAL: Denies abdominal pain, diarrhea, constipation, nausea or vomiting. MUSCULOSKELETAL: Denies myalgias. NEUROLOGIC: Denies numbness, tingling, headache or weakness. ENDOCRINE: Denies fatigue, weight change, polydipsia or polyurina. GENITOURINARY: Denies burning, hematuria or urgency with micturation. HEMATOLOGIC: Denies history of anemia or bleeding. PHYSICAL EXAMINATION Blood pressure 94/69, heart 96, afebrile, saturations 98% on room air CONSTITUTIONAL: No apparent distress. HEENT: Head is normocephalic. Pupils are equal, round. Sclerae anicteric. Mucous membranes of the mouth are moist. No JVD. No carotid bruit. CHEST EXAMINATION: Lungs are clear to auscultation. No chest wall tenderness is noted on palpation or with deep breathing. HEART EXAMINATION: Regular, tachycardic rate and rhythm. S1, S2 heard. No murmurs, gallops or rub. ABDOMEN: Soft, nontender. Positive bowel sounds. EXTREMITIES: 2+ peripheral pulses, no lower extremity edema, right hand tend erness, swelling and blistering from IV site after IV contrast given and no calf tenderness. SKIN: warm, dry NEUROLOGIC EXAMINATION: Patient is awake, alert and oriented x3. ASSESSMENT Chest discomfort, possibly musculoskeletal, acute coronary syndrome has ruled out, rule out ischemia Sinus tachycardia History of migraines History of anxiety and depression Hypertension Chronic nicotine dependence History of coronary artery disease Dyslipidemia PLAN An acute coronary event has been ruled out with no EKG evidence of ischemia and negative cardiac enzymes. Obtain 2D echocardiogram and doppler study to assess cardiac structure and function. Perform Dobutamine stress echo test to assess for stress induced cardiac ischemia. If abnormal will consider coronary angiography. Continue aspirin and statin If stress test with no evidence of stress induced ischemia no further inpatient workup from a cardiology perspective Follow up outpatient with Dr. Sims. Smoking cessation discussed and highly recommended. Thank you kindly for this consultation. Nurse practitioner note has been reviewed by physician. Signing provider agrees with the documented findings, assessment, and plan of care. Past Medical History Additional Past Medical History / Comment(s): SVT History of Any Multi-Drug Resistant Organisms: None Reported Past Surgical History: Appendectomy, Hysterectomy, Orthopedic Surgery Additional Past Surgical History / Comment(s): knee surgery Past Psychological History: Depression Smoking Status: Current every day smoker Past Alcohol Use History: None Reported Past Drug Use History: None Reported - Past Family History familyi Family Medical History: Coronary Artery Disease (CAD) Additional Family Medical History / Comment(s): heart disease Medications and Allergies Home Medications Medication Instructions Recorded Confirmed Type Citalopram Hydrobromide [CeleXA] 20 mg PO BID 04/07/22 04/23/22 History Dextroamphetamine/Amphetamine 20 mg PO DAILY@1200 04/07/22 04/22/22 History [Adderall Xr 20 mg Capsule] Dextroamphetamine/Amphetamine 30 mg PO DAILY@0600 04/07/22 04/22/22 History [Adderall Xr 30 mg Capsule] HYDROcodone/APAP 7.5-325MG [Clinton 1 tab PO QID PRN 04/07/22 04/22/22 History 7.5-325] Propranolol LA [Inderal LA] 80 mg PO DAILY 04/07/22 04/22/22 History Triamterene/Hydrochlorothiazid 1 tab PO DAILY 04/07/22 04/22/22 History [Triamterene-Hctz 37.5-25 mg Tb] clonazePAM [KlonoPIN] 0.5 mg PO BID PRN 04/07/22 04/22/22 History Allergies Allergy/AdvReac Type Severity Reaction Status Date / Time risperidone [From Risperdal] AdvReac SPASMS, Verified 04/22/22 19:44 AGGITATION Physical Exam Vitals: Vital Signs Temp Pulse Pulse Resp BP Pulse Ox 04/23/22 07:18 96 16 94/69 98 04/23/22 01:30 95 18 115/61 98 04/22/22 23:00 98 18 132/83 97 04/22/22 22:00 92 16 123/80 97 04/22/22 21:00 98 18 114/92 97 04/22/22 20:00 69 16 124/66 04/22/22 19:00 92 16 119/48 96 04/22/22 18:44 110 H 22 130/85 97 04/22/22 17:30 105 H 18 130/85 97 04/22/22 15:56 122 H 122 H 30 H 154/124 98 04/22/22 15:26 98.1 F 114 H 22 106/60 96 Intake and Output 04/22/22 04/23/22 04/23/22 22:59 06:59 14:59 Other: Weight 77.111 kg Results 04/22/22 15:32 04/22/22 15:32 Cardiac Enzymes 04/22/22 04/22/22 04/22/22 Range/Units 15:32 15:32 21:21 AST 42 H (14-36) U/L Troponin I <0.012 <0.012 (0.000-0.034) ng/mL 04/23/22 Range/Units 01:24 AST (14-36) U/L Troponin I <0.012 (0.000-0.034) ng/mL Coagulation 04/22/22 Range/Units 15:32 PT 10.3 (9.0-12.0) sec APTT 24.3 (22.0-30.0) sec CBC 04/22/22 Range/Units 15:32 WBC 8.8 (3.8-10.6) k/uL RBC 5.09 (3.80-5.40) m/uL Hgb 16.1 H (11.4-16.0) gm/dL Hct 45.9 (34.0-46.0) % Plt Count 257 (150-450) k/uL Comprehensive Metabolic Panel 04/22/22 Range/Units 15:32 Sodium 137 (137-145) mmol/L Potassium 4.0 (3.5-5.1) mmol/L Chloride 96 L (98-107) mmol/L Carbon Dioxide 28 (22-30) mmol/L BUN 16 (7-17) mg/dL Creatinine 0.68 (0.52-1.04) mg/dL Glucose 104 H (74-99) mg/dL Calcium 9.9 (8.4-10.2) mg/dL AST 42 H (14-36) U/L ALT 40 H (4-34) U/L Alkaline Phosphatase 118 (38-126) U/L Total Protein 8.4 H (6.3-8.2) g/dL Albumin 5.0 (3.5-5.0) g/dL Current Medications Generic Name Dose Route Start Last Admin Trade Name Freq PRN Reason Stop Dose Admin Hydrocodone Bitart/Acetaminophen 1 each 04/23/22 00:28 Hydrocodone/Apap 7.5-325mg 1 Each Tab PO QID PRN Pain Alprazolam 0.5 mg 04/23/22 00:29 Alprazolam 0.5 Mg Tab PO TID PRN Anxiety Aspirin 81 mg 04/23/22 09:00 Aspirin 81 Mg PO DAILY [facility] Atorvastatin Calcium 20 mg 04/23/22 09:00 Atorvastatin 20 Mg Tab PO DAILY [facility] Heparin Sodium (Porcine) 5,000 unit 04/23/22 08:00 Heparin Sodium,Porcine/Pf 5,000 Unit/0.5 Ml Syringe SQ Q8HR [facility] Nitroglycerin 0.4 mg 04/22/22 19:56 Nitroglycerin Sl Tabs 0.4 Mg Tab SUBLINGUAL Q5M PRN Chest Pain Non-Formulary Medication 20 mg 04/23/22 00:30 04/23/22 02:41 Citalopram Hydrobromide [Celexa] PO Not Given DIRECTED [facility] Triamterene/Hydrochlorothiazide 1 each 04/23/22 09:00 Triamterene-Hctz 37.5-25mg 1 Each Tab PO DAILY [facility] Intake and Output 04/22/22 04/23/22 04/23/22 22:59 06:59 14:59 Other: Weight 77.111 kg 04/22/22 15:32 04/22/22 15:32
[2022-04-23] MEDS: CITALOPRAM HYDROBROMIDE 20 MG TAB PO SCH ×2 (11:02→21:15)
--- NOTE | 2022-04-23 11:42 | CA ---
Transthoracic Echo Report Name: Annetta Dueñas Age: 61 Gender: F : 1960 Exam Date: 04/23/2022 08:24 Exam Location: [facility] Ht (in): 62 Wt (lb): 170 Ordering Physician: Blake Spencer MD Attending/Referring Phys: [id number], [employer] Sharlene Ortiz RDCS Procedure CPT: Indications: tachycardia Cardiac Hx: Technical Quality: Contrast 1: Total Dose (mL): Contrast 2: Total Dose (mL): MEASUREMENTS (Male / Female) Normal Values 2D ECHO LV Diastolic Diameter PLAX 3.5 cm 4.2 - 5.9 / 3.9 - 5.3 cm LV Systolic Diameter PLAX 2.6 cm IVS Diastolic Thickness 1.1 cm 0.6 - 1.0 / 0.6 - 0.9 cm LVPW Diastolic Thickness 1.3 cm 0.6 - 1.0 / 0.6 - 0.9 cm LV Relative Wall Thickness 0.7 RV Internal Dim ED PLAX 3.1 cm LA Systolic Diameter LX 4.4 cm 3.0 - 4.0 / 2.7 - 3.8 cm LA Volume 85.7 cm??? 18 - 58 / 22 - 52 cm??? M-MODE Aortic Root Diameter MM 2.5 cm LA Systolic Diameter MM 5.3 cm LA Ao Ratio MM 2.2 MV E Point Septal Separation 0.7 cm AV Cusp Separation MM 1.6 cm DOPPLER MV Peak Velocity 282.9 cm/s MV Peak Gradient 32.0 mmHg MV Mean Velocity 199.3 cm/s MV Mean Gradient 18.0 mmHg MV Velocity Time Integral 71.8 cm MV Area PHT 2.1 cm??? Mitral E Point Velocity 251.2 cm/s Mitral A Point Velocity 232.0 cm/s Mitral E to A Ratio 1.1 MV Deceleration Time 290.8 ms MV E' Velocity 2.5 cm/s Mitral E to MV E' Ratio 98.8 TR Peak Velocity 439.7 cm/s TR Peak Gradient 80.6 mmHg Right Ventricular Systolic Press 85.6 mmHg FINDINGS Left Ventricle Left ventricular ejection fraction is estimated at 50-55%. Mildly increased left ventricular wall thickness. Right Ventricle Right ventricle at upper limits of normal. Severe pulmonary hypertension. Right ventricular systolic pressure estimated at 85.6 mm hg. Right Atrium Normal right atrial size. Left Atrium Moderately increased left atrial diameter. Severely increased left atrial volume. Mildly increased left atrial area. Mitral Valve 18.90mmHg. Severe mitral regurgitation. Additional structure by anterior mv leaflet. Aortic Valve Trileaflet aortic valve. Tricuspid Valve Structurally normal tricuspid valve. Pulmonic Valve Structurally normal pulmonic valve. [id number] pulmonic regurgitation. Pericardium Normal pericardium. Aorta Normal size aortic root and proximal ascending aorta. CONCLUSIONS Normal LV systolic function Moderate to severe mitral stenosis Severe mitral regurgitation Mitral valve leaflets appear thickened and calcified Severe pulmonary hypertension with an RV systolic pressure of 85 mm Enlarged right ventricle Enlarged left atrium Previewed by: Dr. Yimi Sims MD (Electronically Signed) Final Date: 23 April 2022 11:41
--- NOTE | 2022-04-23 11:51 | P.PN ---
Progress Note - Text Patient's echocardiogram revealed EF 50-55%, severe pulmonary hypertension RVSP 85.6mmHg, Severe mitral regurgitation, moderate to severe mitral stenosis, enlarged ventricle, enlarged left atrium Cancel Dobutamine Stress Echo test Recommend DENISE and right and left cardiac catheterization, discussed with the patient and she is agreeable. Plan for DENISE tomorrow and right and left cardiac catheterization I have discussed the risks, benefits and alternative therapies for the above- mentioned procedure and for both sedation/analgesia as well as necessary blood product administration, if indicated, as they pertain to this patient. The patient has indicated understanding and acceptance of the risks and procedures discussed. Questions have been answered appropriately and she is agreeable to move forward with the above-stated procedure. NPO after midnight Further recommendations to follow
--- NOTE | 2022-04-23 13:20 | P.PN ---
Subjective Progress Note Date: 04/23/22 Principal diagnosis: CP Hospital Course: 61-year-old female with history of chronic pain, anxiety, depression presenting with acute chest pain, shortness of breath, lightheadedness. Patient had elevated d-dimer, tachycardia, CTA showed no PE. Patient evaluated by cardiology. Echocardiogram showed LVEF 50-55%, severe pulmonary hypertension, severe mitral regurgitation, moderate to severe mitral stenosis. Patient will likely get a DENISE and right and left heart cath tomorrow. Subjective: Patient seen and examined at bedside. No acute events overnight. She claims that her chest pain is on and off, but has improved since she came in. Denies any abdominal pain, nausea, vomiting, diarrhea, constipation, or urinary complaints. Pertinent positives and negatives as discussed above, a complete review of systems was performed and all other systems are negative. Vitals Signs Reviewed. General: nontoxic, no distress, appears at stated age Derm: warm, dry Head: atraumatic, normocephalic, symmetric Eyes: EOMI, no lid lag, anicteric sclera Mouth: no lip lesion, mucus membranes moist Cardiovascular: S1S2 reg, systolic murmur Lungs: CTA bilateral, no rhonchi, no rales , no accessory muscle use Abdominal: soft, nontender to palpation, no guarding, no appreciable organomegaly Ext: no gross muscle atrophy, trace edema, no contractures Neuro: CN II-XI grossly intact, no focal neuro deficits Psych: Alert, oriented, appropriate affect Assessment and Plan: Acute chest pain Sinus tachycardia Elevated d-dimer Severe pulmonary hypertension Severe mitral regurgitation Moderate to severe mitral stenosis -ACS ruled out, negative troponin -TSH normal -Patient on aspirin and statin - Echo showed LVEF of 50-55% - Cardiology consulted -DENISE and right and left heart cath tomorrow HTN Depression/anxiety -Continue home medications DVT ppx: heparin sq Code status: Full code Anticipated discharge place: home Anticipated discharge time: 1-2 days Objective - Vital Signs Vital signs: Vital Signs Temp 98.2 F 04/23/22 12:05 Pulse 108 H 04/23/22 12:05 Resp 18 04/23/22 12:05 BP 110/76 04/23/22 12:05 Pulse Ox 96 04/23/22 12:05 FiO2 Intake & Output 04/22/22 04/23/22 04/23/22 18:59 06:59 18:59 Weight 77.111 kg - Labs CBC & Chem 7: 04/22/22 15:32 04/22/22 15:32 Labs: Abnormal Lab Results - Last 24 Hours (Table) 04/22/22 04/22/22 04/22/22 Range/Units 15:32 15:32 15:32 Hgb 16.1 H (11.4-16.0) gm/dL D-Dimer 0.67 H (<0.60) mg/L FEU Chloride 96 L (98-107) mmol/L Glucose 104 H (74-99) mg/dL AST 42 H (14-36) U/L ALT 40 H (4-34) U/L Total Protein 8.4 H (6.3-8.2) g/dL Triglycerides (0.00-149.00) mg/dL VLDL Cholesterol, Calc (5.00-40.00) mg/dL Urine Opiates Screen (NotDetected) Ur Amphetamines Screen (NotDetected) U Benzodiazepines Scrn (NotDetected) 04/22/22 04/23/22 Range/Units 18:20 05:35 Hgb (11.4-16.0) gm/dL D-Dimer (<0.60) mg/L FEU Chloride (98-107) mmol/L Glucose (74-99) mg/dL AST (14-36) U/L ALT (4-34) U/L Total Protein (6.3-8.2) g/dL Triglycerides 254.00 H (0.00-149.00) mg/dL VLDL Cholesterol, Calc 50.80 H (5.00-40.00) mg/dL Urine Opiates Screen Detected H (NotDetected) Ur Amphetamines Screen Detected H (NotDetected) U Benzodiazepines Scrn Detected H (NotDetected)
[2022-04-24] MEDS: HEPARIN SODIUM,PORCINE/PF 5,000 UNIT/0.5 ML SYRINGE SQ SCH ×4 (00:20→23:14)
[2022-04-24 05:56] LABS: African American GFR (CKD) >90 (>60 ml/min/1.73 sqM); Anion Gap 8 mmol/L; Blood Urea Nitrogen 19 mg/dL (7-17); Carbon Dioxide 33 mmol/L (22-30); Chloride 97 mmol/L (98-107); Glucose 112 mg/dL (74-99); Non-African American GFR(CKD) 83 (>60 ml/min/1.73 sqM); Potassium 3.9 mmol/L (3.5-5.1); Sodium 138 mmol/L (137-145)
[2022-04-24] MEDS ORDERED: HEPARIN SODIUM,PORCINE 2,500 UNIT in SODIUM CHLORIDE 0.9% 250 ML IRRIGATION PRN (07:00)
[2022-04-24] MEDS ORDERED: HEPARIN SODIUM,PORCINE 10,000 UNIT in SODIUM CHLORIDE 0.9% 1,000 ML IRRIGATION PRN (07:00)
[2022-04-24] MEDS: ATORVASTATIN 20 MG TAB PO SCH (09:04)
[2022-04-24] MEDS: CITALOPRAM HYDROBROMIDE 20 MG TAB PO SCH ×2 (09:04→23:13)
[2022-04-24] MEDS: ASPIRIN 81 MG PO SCH (09:04)
[2022-04-24] MEDS: TRIAMTERENE-HCTZ 37.5-25MG 1 EACH TAB PO SCH (09:04)
[2022-04-24] MEDS: HYDROcodone/APAP 7.5-325MG 1 EACH TAB PO PRN ×3 (09:15→23:13)
[2022-04-24] MEDS ORDERED: SODIUM CHLORIDE 0.9% 1,000 ML IV ONE (11:08)
[2022-04-24] MEDS ORDERED: BENZOCAINE SPRAY 1 CAN MUCOUS MEM ONE (11:23)
[2022-04-24] MEDS ORDERED: fentaNYL (PF) 50 MCG/1 ML VIAL IV ONE (11:25)
[2022-04-24] MEDS ORDERED: MIDAZOLAM 2 MG/2 ML VIAL IV ONE (11:25)
[2022-04-24] MEDS ORDERED: clonazePAM 0.5 MG TAB PO PRN (12:06)
--- NOTE | 2022-04-24 12:11 | P.PN ---
Subjective Progress Note Date: 04/24/22 Principal diagnosis: chest pain. Still with some chest pressure radiating to the left armpit. No significant sob. No dizziness or palpations. No n/v. Objective - Vital Signs Vital signs: Vital Signs Temp 97.8 F 04/24/22 12:04 Pulse 94 04/24/22 11:30 Resp 18 04/24/22 12:04 BP 111/76 04/24/22 12:04 Pulse Ox 94 L 04/24/22 12:04 FiO2 Intake & Output 04/23/22 04/24/22 04/24/22 18:59 06:59 18:59 Intake Total 222 500 100 Balance 222 500 100 Weight 77.111 kg Intake: IV 100 Oral 222 500 Other: Voiding Method Toilet # Voids 1 2 - Exam Constitutional: No acute distress, conversant, pleasant Eyes:Anicteric sclerae, moist conjunctiva, no lid-lag, PERRLA, ENMT: Oropharynx clear, no erythema, exudates Neck: Supple, FROM, no masses, or JVD, No carotid bruits, No thyromegaly Lungs: Clear to auscultation, Clear to percussion, Normal respiratory effort, no accessory muscle use Cardiovascular: Heart regular in rate and rhythm, No murmurs, gallops, or rubs, No peripheral edema Abdominal: Soft, Nontender, no guarding, rebound or rigidity, Normoactive bowel sounds, No hepatomegaly, No splenomegaly, No palpable mass Skin: Normal temperature, tone, texture, turgor, no induration, No subcutaneous nodules, No rash, lesions, No ulcers Extremities: No digital cyanosis, No clubbing, Pedal pulses intact and symmetrical, Radial pulses intact and symmetrical, No calf tenderness Psychiatric: Alert and oriented to person, place and time, appropriate affect, intact judgement Neuro: Muscles Strength 5/5 in all 4 extremities, Sensation to light touch grossly present throughout, Cranial nerves II-XII grossly intact, no focal sensory deficits - Labs CBC & Chem 7: 04/22/22 15:32 04/24/22 04:59 Labs: Abnormal Lab Results - Last 24 Hours (Table) 04/24/22 Range/Units 04:59 Chloride 97 L (98-107) mmol/L Carbon Dioxide 33 H (22-30) mmol/L BUN 19 H (7-17) mg/dL Glucose 112 H (74-99) mg/dL Assessment and Plan Plan: Acute chest pain Sinus tachycardia Elevated d-dimer Severe pulmonary hypertension Severe mitral regurgitation Moderate to severe mitral stenosis -ACS ruled out, negative troponin -TSH normal -Patient on aspirin and statin - Echo showed LVEF of 50-55%, severe pulm HTN and mitral valve stenosis and regurgitation. - Cardiology consulted -DENISE and right and left heart cath today HTN Depression/anxiety -Continue home medications DVT ppx: heparin sq Code status: Full code Anticipated discharge place: home Anticipated discharge time: 1-2 days
--- NOTE | 2022-04-24 12:53 | CC ---
CARDIAC CATHETERIZATION REPORT STUDY PERFORMED: Transesophageal Echo Report INDICATIONS: Pulmonary hypertension in a patient with mitral stenosis and regurgitation. PROCEDURE NOTE: After obtaining informed consent, transesophageal echocardiogram was performed in left lateral position using an Omniplane probe. Local and IV sedation were obtained using Xylocaine spray, 2 mg of Versed and 25 mcg of fentanyl. The patient received moderate conscious sedation. Total sedation time was 10 minutes. FINDINGS: 1. Mitral valve appears thickened with restricted leaflet mobility. There is moderate- to-severe mitral regurgitation noted. There is mild calcification of the mitral valve, the anterior mitral leaflet appears more thickened at the tip in the posterior leaflet. 2. Left atrium appears severely enlarged. Right atrium has normal size. Right ventricle appears mildly enlarged. There is [id number] tricuspid regurgitation, interatrial septum does not show pwqt-mi-kjbyv shunt by color-flow Doppler or scitz-gp-tqbd shunt by agitated saline contrast study. 3. Aortic root appears normal. CONCLUSIONS: 1. Severe restriction in mitral valve leaflet mobility that is thickened and calcified consistent with rheumatic mitral valve. There is xettzflm-xv-ktqqzy mitral regurgitation noted. 2. Left ventricular systolic function is normal. 3. Left atrium appears enlarged. PLAN: The patient will undergo a right and left heart catheterization and will be referred to a surgeon for mitral valve replacement. MMODL / IJN: [id number] /
[2022-04-24] MEDS: SODIUM CHLORIDE 0.9% 1,000 ML in EMPTY BAG 1 BAG IV SCH (23:14)
[2022-04-25] MEDS ORDERED: ASPIRIN 325 MG TAB PO ONE (05:00)
[2022-04-25 05:15] LABS: Basophils # (A) 0.1 k/uL (0-0.2); Basophils % (A) 1 %; Eosinophils # (A) 0.1 k/uL (0-0.7); Eosinophils % (A) 3 %; HCT 40.9 % (34.0-46.0); Lymphocytes # (A) 1.4 k/uL (1.0-4.8); Lymphocytes % (A) 27 %; MCHC 34.2 g/dL (31.0-37.0); MCV 90.8 fL (80.0-100.0); Mean Platelet Volume 7.9; Monocytes # (A) 0.5 k/uL (0-1.0); Monocytes % (A) 9 %; Neutrophils # (A) 2.9 k/uL (1.3-7.7); Neutrophils % (A) 57 %; Platelet Count 214 k/uL (150-450); RBC 4.51 m/uL (3.80-5.40); RDW 13.7 % (11.5-15.5)
[2022-04-25] MEDS ORDERED: FUROSEMIDE 10 MG/ML 4 ML VIAL ONE (07:23)
[2022-04-25] MEDS ORDERED: FUROSEMIDE 10 MG/ML 4 ML VIAL IV ONE (07:25)
[2022-04-25] MEDS ORDERED: IPRATROPIUM-ALBUTEROL 3 ML NEB INHALATION STA (07:39)
--- NOTE | 2022-04-25 09:07 | P.PN ---
Subjective This is a pleasant 61-year-old female past medical history significant for SVT, migraines, anxiety, depression, hypertension, chronic nicotine dependence, family history of coronary artery disease. She follows in the office with Dr. Sims. We have been asked to see in consultation for chest pain. Patient presents to the emergency department with multiple complaints. She has been having left sided chest discomfort, located under her left breast and left axilla and radiating to her left shoulder. Acute coronary syndrome was ruled out with no EKG evidence of ischemia and negative cardiac enzymes. She was initially scheduled for stress test, however, Patient's echocardiogram revealed EF 50-55%, severe pulmonary hypertension RVSP 85.6mmHg, Severe mitral regurgitation, moderate to severe mitral stenosis, enlarged ventricle, enlarged left atrium. Recommendation was for DENISE and right and left heart catheterization. Patient underwent DENISE with Dr. Sims on 04/24 which revealed EF of 5055 percent, severe restriction of the mitral valve leaflet mobility that is thickened and calcified consistent with rheumatic mitral valve, moderate to severe mitral regurgitation, left ventricular systolic function is normal, left atrium appears enlarged, mild to moderate tricuspid regurgitation, no left to right shunt or rvgaz-[id number]-[id number] shunt, aortic root appears normal. 04/25/2022 Patient plan to undergo right and left heart catheterization with Dr. Sims today. In the [employer] patient had increased shortness of breath and the procedure has been placed on hold. IV Lasix 40 mg given 1. Vital signs are stable. She is maintaining oxygen saturations >92% on room air. Labs: WBC 5.0, hemoglobin 14, platelets 214 PHYSICAL EXAMINATION Blood pressure 128/53, heart rate 99, afebrile, oxygen saturations 100% on room air CONSTITUTIONAL: No apparent distress. HEENT: Head is normocephalic. Neck Supple. No JVD CHEST EXAMINATION: Lungs are clear to auscultation. No chest wall tenderness is noted on palpation or with deep breathing. HEART EXAMINATION: Regular rate and rhythm. S1, S2 heard. No murmurs, gallops or rub. ABDOMEN: Soft, nontender. Positive bowel sounds. EXTREMITIES: 2+ peripheral pulses, no lower extremity edema, right hand tendern ess, swelling and blistering from IV site after IV contrast given and no calf tenderness. SKIN: warm, dry NEUROLOGIC EXAMINATION: Patient is awake, alert and oriented x3. ASSESSMENT Chest discomfort, acute coronary syndrome was ruled out Thickened and calcified mitral valve consistent with rheumatic mitral valve on DENISE Moderate to Severe mitral regurgitation Mild to moderate tricuspid regurgitation Shortness of breath Sinus tachycardia History of migraines History of anxiety and depression Hypertension Chronic nicotine dependence History of coronary artery disease Dyslipidemia PLAN In the [employer] patient had increased shortness of breath and the procedure has been placed on hold. IV Lasix 40 mg given 1. Will give duoneb Monitor patient If improved, will plan for right and left heart catheterization later today Keep NPO Continue aspirin and statin Further recommendations based on clinical course Nurse practitioner note has been reviewed by physician. Signing provider agrees with the documented findings, assessment, and plan of care. Objective - Vital Signs Vital signs: Vital Signs Temp 97.5 F L 04/25/22 07:00 Pulse 88 04/25/22 08:00 Resp 18 04/25/22 07:00 BP 128/53 04/25/22 07:00 Pulse Ox 100 04/25/22 07:00 FiO2 Intake & Output 04/24/22 04/25/22 04/25/22 18:59 06:59 18:59 Intake Total 340 500 Balance 340 500 Intake: IV 100 Oral 240 500 Other: Voiding Method Toilet # Voids 2 1 - Labs CBC & Chem 7: 04/25/22 04:40 04/24/22 04:59
[2022-04-25] MEDS: HEPARIN SODIUM,PORCINE/PF 5,000 UNIT/0.5 ML SYRINGE SQ SCH ×3 (09:30→23:20)
[2022-04-25] MEDS: TRIAMTERENE-HCTZ 37.5-25MG 1 EACH TAB PO SCH (09:30)
[2022-04-25] MEDS: ATORVASTATIN 20 MG TAB PO SCH (09:31)
[2022-04-25] MEDS: CITALOPRAM HYDROBROMIDE 20 MG TAB PO SCH ×2 (09:31→23:20)
[2022-04-25] MEDS: HYDROcodone/APAP 7.5-325MG 1 EACH TAB PO PRN ×3 (09:32→23:20)
[2022-04-25] MEDS ORDERED: VERAPAMIL 2.5 MG/ML 2 ML AMP ONE (10:51)
[2022-04-25] MEDS ORDERED: fentaNYL (PF) 50 MCG/1 ML VIAL IVP ONE (11:02)
[2022-04-25] MEDS: MIDAZOLAM 2 MG/2 ML VIAL IVP ONE ×2 (11:02→11:24)
[2022-04-25] MEDS ORDERED: LIDOCAINE 1% INJ 10MG/ML (30 ML VIAL-PF) SQ ONE (11:04)
[2022-04-25] MEDS ORDERED: SODIUM CHLORIDE 0.9% 1,000 ML IV ONE (11:08)
[2022-04-25] MEDS ORDERED: IOPAMIDOL-370 100ML BTL INJ ONE (11:38)
[2022-04-25 11:45] LABS: O2 Sat Blood Gas 59.5 %
[2022-04-25 11:47] LABS: O2 Sat Blood Gas 60.3 %
[2022-04-25] MEDS ORDERED: RX INFO: IV CONTRAST WAS GIVEN 1 EACH MISC MISCELLANE PRN (12:09)
[2022-04-25] MEDS ORDERED: SODIUM CHLORIDE 0.9% 1,000 ML IV SCH (12:15)
--- NOTE | 2022-04-25 12:52 | CC ---
CARDIAC CATHETERIZATION REPORT INDICATIONS: Mitral stenosis and regurgitation. The patient underwent right and left heart catheterization via the right femoral artery and vein using standard Myron catheters for the left heart catheterization and using a Zortman-Celso catheter for the right heart catheterization. I am going to described the left heart catheterization first. The patient received moderate conscious sedation. Total sedation time was 28 minutes. FINDINGS: 1. Hemodynamics: Left ventricular end-diastolic pressure is 8 mm. There is no significant gradient across the aortic valve. 2. Left Ventriculogram: Left ventriculogram is not performed. 3. Angiographic Data: a.Right coronary artery: Right coronary artery is a dominant vessel, is free of significant stenosis. Left main coronary artery is a normal-sized vessel with stenosis, divides into left anterior descending coronary artery and circumflex coronary artery. LAD and its branches are free of significant stenosis. Circumflex coronary artery has a mild nonobstructive plaque. CONCLUSION: 1. Mild nonobstructive disease involving circumflex coronary artery. 2. Right heart catheterization data will be dictated as a separate report. MMODL / IJN: [id number] /
--- NOTE | 2022-04-25 12:53 | P.PN ---
Subjective Progress Note Date: 04/25/22 Principal diagnosis: chest pain. Patient plan for heart catheterization this morning, felt acutely short of breath, was given IV Lasix and DuoNeb and was returned back to the floor. When seen she was feeling better. She attributed the shortness of breath to repeated movement. No chest pain. No n/v. No palpitations. Objective - Vital Signs Vital signs: Vital Signs Temp 98.2 F 04/25/22 12:30 Pulse 94 04/25/22 12:45 Resp 18 04/25/22 12:30 BP 106/67 04/25/22 12:45 Pulse Ox 95 04/25/22 12:45 FiO2 Intake & Output 04/24/22 04/25/22 04/25/22 18:59 06:59 18:59 Intake Total 340 500 50 Balance 340 500 50 Intake: IV 100 50 Oral 240 500 Other: Voiding Method Toilet # Voids 2 1 - Exam Constitutional: No acute distress, conversant, pleasant Eyes:Anicteric sclerae, moist conjunctiva, no lid-lag, PERRLA, ENMT: Oropharynx clear, no erythema, exudates Neck: Supple, FROM, no masses, or JVD, No carotid bruits, No thyromegaly Lungs: Clear to auscultation, Clear to percussion, Normal respiratory effort, no accessory muscle use Cardiovascular: Heart regular in rate and rhythm, No murmurs, gallops, or rubs, No peripheral edema Abdominal: Soft, Nontender, no guarding, rebound or rigidity, Normoactive bowel sounds, No hepatomegaly, No splenomegaly, No palpable mass Skin: Normal temperature, tone, texture, turgor, no induration, No subcutaneous nodules, No rash, lesions, No ulcers Extremities: No digital cyanosis, No clubbing, Pedal pulses intact and symmetrical, Radial pulses intact and symmetrical, No calf tenderness Psychiatric: Alert and oriented to person, place and time, appropriate affect, intact judgement Neuro: Muscles Strength 5/5 in all 4 extremities, Sensation to light touch gross ly present throughout, Cranial nerves II-XII grossly intact, no focal sensory deficits - Labs CBC & Chem 7: 04/25/22 04:40 04/24/22 04:59 Assessment and Plan Plan: Acute chest pain Sinus tachycardia Elevated d-dimer Severe pulmonary hypertension Severe mitral regurgitation Moderate to severe mitral stenosis -ACS ruled out, negative troponin -TSH normal -Patient on aspirin and statin - Echo showed LVEF of 50-55%, severe pulm HTN and mitral valve stenosis and regurgitation. 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 Going for right and left heart cath now HTN Depression/anxiety -Continue home medications DVT ppx: heparin sq Code status: Full code Anticipated discharge place: home Anticipated discharge time: 1-2 days
[2022-04-25] MEDS: SODIUM CHLORIDE 0.9% 1,000 ML in EMPTY BAG 1 BAG IV SCH (13:53)
--- NOTE | 2022-04-25 15:41 | US ---
EXAMINATION TYPE: US carotid duplex BILAT DATE OF EXAM: 04/25/2022 COMPARISON: NONE CLINICAL HISTORY: preop cardiac surgery. Pre op cardiac surgery TECHNIQUE: Carotid duplex ultrasound examination. Indirect Doppler criteria was utilized. FINDINGS: EXAM MEASUREMENTS: RIGHT: Peak Systolic Velocity (PSV) cm/sec ----- Right CCA: 68.9 ----- Right ICA: 73.5 ----- Right ECA: 96.0 ICA/CCA ratio: 1.07 RIGHT: End Diastole cm/sec ----- Right CCA: 16.1 ----- Right ICA: 14.3 ----- Right ECA: 17.8 LEFT: Peak Systolic Velocity (PSV) cm/sec ----- Left CCA: 60.8 ----- Left ICA: 88.4 ----- Left ECA: 80.9 ICA/CCA ratio: 1.45 LEFT: End Diastole cm/sec ----- Left CCA: 17.2 ----- Left ICA: 32.7 ----- Left ECA: 0.0 VERTEBRALS (direction of flow): Right Vertebral: Antegrade Left Vertebral: Antegrade Rhythm: Normal WEIGHTER NOTES: Mild plaque bilateral bifurcations. No evidence of increased velocities IMPRESSION: Atheromatous plaquing without significant flow-limiting stenosis based on velocity measurements. Criteria for Assigning % of Stenosis / Diameter reduction (Estimation based on the indirect measurements of the internal carotid artery velocities (ICA PSV). 1. Normal (no stenosis)=ICA PSV < 125 cm/s: ratio < 2.0: ICA EDV<40 cm/s. 2. Less than 50% stenosis=ICA PSV < 125 cm/s: ratio < 2.0: ICA EDV<40 cm/s. 3. 50 to 69% stenosis=ICA PSV of 125 to 230 cm/s: ration 2.0 ? 4.0: ICA EDV 40-100 cm/s. 4. Greater than 70% stenosis to near occlusion= ICA PSV > 230 cm/s: ratio > 4.0: ICA EDV > 100 cm/s. 5. Near occlusion= ICA PSV velocities may be low or undetectable: variable ratio and ICA EDV. 6. Total occlusion=unable to detect flow.
--- NOTE | 2022-04-25 16:05 | P.GSCN ---
History of Present Illness Consult date: 04/25/22 Reason for Consult: Mitral regurgitation Requesting physician: Yimi Sims History of present illness: This is a 61-year-old female patient who follows on an outpatient basis with Dr. Santos for primary care and Dr. Sims for cardiology. She has a previous medical history of SVT, hypertension, current tobacco dependence, depression, remote history of pneumonia, and family history of coronary artery disease. She presented to [facility] emergency department with complaints of chest pain radiating to her back and arm which has been intermittent for a year. She also endorsed shortness of breath, lower extremity edema, nausea/vomiting, and lightheadedness. She states her shortness of breath is with activity only, however has gotten so bad that just walking about in her house is too much for her. In the emergency room a chest x-ray was completed demonstrating no acute process. CTA of the chest demonstrated no pulmonary embolism, and no other cardiopulmonary process. EKG demonstrated sinus tach with heart rate 116 bpm with right axis deviation. Lab work revealed WBC 8.8, hemoglobin 16.1, platelet count 257,000, INR 0.9, d-dimer 0.67, creatinine 0.68, AST 42, ALT 40, troponins were negative 3, Covid PCR was negative. Urine drug screen was positive for opiates, amphetamines, and benzodiazepines, however the patient is on prescribed Adderall, Klonopin, and Sunflower. The patient was admitted for evaluation and treatment with consultation placed to cardiology. An echocardiogram was comp leted demonstrating normal left ventricular systolic function with EF 50-55%, severe pulmonary hypertension with RVSP 86 mmHg, mildly increased left atrium with severely increased left atrial volume, severe mitral regurgitation, and mild to moderate pulmonic regurgitation. A transesophageal echocardiogram was completed yesterday demonstrating thickened mitral valve with restricted leaflet mobility, moderate to severe mitral regurgitation, mild MAC, severely enlarged left atrium, mild to moderate tricuspid regurgitation, and normal left ventricular systolic function. For further evaluation a heart catheterization was completed today demonstrating mild nonobstructive disease involving the ci rcumflex coronary artery. Consultation was placed to cardiothoracic surgery for surgical recommendations. Review of Systems Review of systems was completed and was negative except as noted - Constitutional Reports fatigue - Cardiovascular Reports as per HPI, Reports chest pain, Reports decreased exercise tolerance, Re ports dyspnea on exertion, Reports leg edema, Reports lightheadedness, Reports rapid heart beat - Gastrointestinal Reports nausea, Reports vomiting Past Medical History Past Medical History: Chest Pain / Angina, Hypertension, Pneumonia, Supraventricular Tachycardia (SVT) Additional Past Medical History / Comment(s): migraines, bronchitis, H. 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 Past Psychological History: Depression Smoking Status: Current every day smoker Past Alcohol Use History: None Reported Past Drug Use History: None Reported Additional History: Patient has smoked since she was 17 years old - Past Family History Mother Family Medical History: Coronary Artery Disease (CAD) Additional Family Medical History / Comment(s): Mother is still alive at 79 years old Father Family Medical History: Cancer, Diabetes Mellitus Additional Family Medical History / Comment(s): Father is still alive at 82 years Medications and Allergies Home Medications Medication Instructions Recorded Confirmed Type Citalopram Hydrobromide [CeleXA] 20 mg PO BID 04/07/22 04/23/22 History Dextroamphetamine/Amphetamine 20 mg PO DAILY@1200 04/07/22 04/22/22 History [Adderall Xr 20 mg Capsule] Dextroamphetamine/Amphetamine 30 mg PO DAILY@0600 04/07/22 04/22/22 History [Adderall Xr 30 mg Capsule] HYDROcodone/APAP 7.5-325MG [Sunflower 1 tab PO QID PRN 04/07/22 04/22/22 History 7.5-325] Propranolol LA [Inderal LA] 80 mg PO DAILY 04/07/22 04/22/22 History Triamterene/Hydrochlorothiazid 1 tab PO DAILY 04/07/22 04/22/22 History [Triamterene-Hctz 37.5-25 mg Tb] clonazePAM [KlonoPIN] 0.5 mg PO BID PRN 04/07/22 04/22/22 History Allergies Allergy/AdvReac Type Severity Reaction Status Date / Time risperidone [From Risperdal] AdvReac SPASMS, Verified 04/22/22 19:44 AGGITATION Surgical - Exam Vital Signs Temp Pulse Resp BP Pulse Ox 98.1 F 114 H 22 106/60 96 04/22/22 15:26 04/22/22 15:26 04/22/22 15:26 04/22/22 15:26 04/22/22 15:26 CONSTITUTIONAL: Awake and alert, appears comfortable, cooperative, well- developed, well-nourished, no pain, no acute distress EYES: Pupils equal, round, reactive to light, normal ocular movement ENT: Moist mucous membranes without oral lesions present; edentulous NECK: No masses, no bruits, trachea midline RESPIRATORY: Lungs sounds diminished bilaterally. Respirations even, nonlabored. Currently on room air with oxygen saturation 97%. Strong cough. No chest wall deformities. No clubbing or cyanosis present CARDIOVASCULAR: S1, S2 present. Regular rate and rhythm, sinus rhythm on telemetry. Palpable peripheral pulses bilaterally. No edema present. No calf pain or tenderness noted. No significant lower extremity varicosities noted. GASTROINTESTINAL: Abdomen soft, nontender, nondistended without masses or organomegaly noted. There is no rebound or guarding present. Active bowel sounds present 4 quadrants. GENITOURINARY: Deferred INTEGUMENTARY: Skin is warm and dry with evidence of good perfusion. Right groin soft, no drainage present NEUROLOGIC: Cranial nerves II through XII intact, normal coordination, no obvious motor or sensory deficits, speech is normal MUSKULOSKELETAL: Able to move all extremities, strength equal bilaterally, normal posture PSYCHIATRIC: Alert and oriented to person place and time, appropriate affect, intact judgment and insight Results - Labs 04/26/22 06:02 04/26/22 05:58 - Imaging Chest x-ray: report reviewed, image reviewed CT scan - chest: report reviewed, image reviewed Assessment and Plan Assessment: 1. Severe mitral regurgitation, thickened mitral valve with restricted leaflet mobility, mild MAC 2. Mild to moderate tricuspid regurgitation 3. Severe pulmonary hypertension with RVSP 86 mmHg 4. Normal left ventricular systolic function with EF 50-55% 5. 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 History SVT 7. History of hypertension 8. Current tobacco dependence 9. Depression 10. Remote history of pneumonia 11. Family history of coronary artery disease. Plan: The patient was seen and examined at the bedside on the cardiac observation unit. Chart/diagnostics were reviewed. The case was discussed in detail with Dr. Lerma by myself as well as by Dr. Sims. Our recommendations are for elective mitral valve repair versus replacement. The usual perioperative course was discussed in detail with the patient, risks and benefits were reviewed, all questions were answered. We will attempt to contact the patient's daughter as well to discuss surgery. The patient does consent to surgery. Preoperative testing was initiated. Once completed we will calculate STS risk score and discuss with the patient. Dental clearance does not need to be obtained as the patient is edentulous. Smoking cessation counseling and education was offered to the patient, she was recommended to quit smoking completely. She will be s een tomorrow by Dr. Lerma once all testing has been completed and pending any red flags a date for surgery can be scheduled. Otherwise she may follow-up in the outpatient setting with Dr. Lerma, an appointment has been made. Consultation will be placed to pulmonology for preoperative clearance. C ontinued medical management per internal medicine, cardiology. Thank you for this consult. More recommendations to follow. I have personally seen and examined the patient, performed the documentation and the assessment and plan as written. Number of minutes spent on the visit: 30. BENITO Gallego I have seen and evaluated the patient with REFRIGERATION TECHNICIAN above. Agree with her assessment and plan. This is a 62 y/o F who has had multiple recent visits to the hospital for worsening shortness of breath. She is found to have rheumatic mitral valve disease with moderate stenosis (mean gradient 18), and mod-severe MR. She underwent right and left heart cath which reveals non-obstructive coronary artery disease with pulmonary hypertension. She is a current smoker with borderline PFT's but this would not preclude her surgical candidiacy. We will await Dr. Engel's final recommendations and she can be discharged home. We will plan for Mitral Valve Replacement (bioprosthetic) with LAAL in the next week or two. I have spent 45 minutes reviewing the patients clinical data and discussing the plan of care with her.
[2022-04-25 19:51] LABS: Appearance,Urine Clear (Clear); Bilirubin,Urine Negative (Negative); Blood,Urine Negative (Negative); Color,Urine Yellow; Glucose,Urine (UA) Negative (Negative); Ketones,Urine Negative (Negative); Leukocyte Esterase,Urine Negative (Negative); Nitrite,Urine Negative (Negative); Protein,Urine Negative (Negative); Specific Gravity,Urine 1.033 (1.001-1.035); Urobilinogen,Urine <2.0 mg/dL (<2.0)
[2022-04-26] MEDS: SODIUM CHLORIDE 0.9% 1,000 ML in EMPTY BAG 1 BAG IV SCH ×2 (04:42→17:02)
--- NOTE | 2022-04-26 06:13 | CC ---
CARDIAC CATHETERIZATION REPORT PROCEDURE: Right heart catheterization. INDICATION: Mitral stenosis and regurgitation. PROCEDURE NOTE: After obtaining informed consent, right heart catheterization was done via the right femoral artery. An initial venous access was obtained and the Gay-Celso catheter was floated into the pulmonary artery under fluoroscopic guidance. The patient tolerated the procedure well without any obvious immediate complications. FINDINGS: 1. Hemodynamics: The mean right atrial pressure is 3 mm. The mean pulmonary capillary wedge pressure is 22 mm, PA systolic is 63 mm while the diastolic is 26 with a mean PA pressure of 43 mm. Mean right ventricular pressure is 49 mm with a systolic of 70 mm and a diastolic of 32 mm. 2. Cardiac output by Noah method is 3.71 L while by the thermodilution technique it is 4.4 L. O2 saturation run showed that the femoral arterial saturation was 93%. The O2 saturation in the PA is 60% and in the RA is 60%. The mitral valve gradient was about 14 mm consistent with a valve area of 0.91 squared cm. CONCLUSIONS: 1. Severe pulmonary hypertension. 2. No evidence of shunting from left to right. 3. Severe mitral stenosis. PLAN: The patient will be referred to a cardiothoracic surgeon for mitral valve replacement. MMODL / IJN: [id number] /
[2022-04-26 06:22] LABS: Basophils % (A) 1 %; Eosinophils # (A) 0.1 k/uL (0-0.7); Eosinophils % (A) 1 %; HCT 44.4 % (34.0-46.0); Lymphocytes # (A) 1.4 k/uL (1.0-4.8); Lymphocytes % (A) 17 %; MCH 30.7 pg (25.0-35.0); MCHC 33.9 g/dL (31.0-37.0); MCV 90.5 fL (80.0-100.0); Mean Platelet Volume 8.5; Monocytes # (A) 0.7 k/uL (0-1.0); Monocytes % (A) 8 %; Neutrophils # (A) 6.2 k/uL (1.3-7.7); Neutrophils % (A) 72 %; Platelet Count 209 k/uL (150-450); WBC 8.6 k/uL (3.8-10.6)
[2022-04-26 09:31] LABS: Hepatitis A Antibody IgM Nonreactive (Nonreactive); Hepatitis B Core IgM Nonreactive (Nonreactive); Hepatitis B Surface Antigen Nonreactive (Nonreactive); Hepatitis C IgG Antibody Nonreactive (Nonreactive)
[2022-04-26] MEDS: HEPARIN SODIUM,PORCINE/PF 5,000 UNIT/0.5 ML SYRINGE SQ SCH ×3 (10:07→22:06)
[2022-04-26] MEDS: ASPIRIN 81 MG PO SCH (10:07)
[2022-04-26] MEDS: ATORVASTATIN 20 MG TAB PO SCH (10:07)
[2022-04-26] MEDS: CITALOPRAM HYDROBROMIDE 20 MG TAB PO SCH ×2 (10:07→20:23)
[2022-04-26] MEDS: TRIAMTERENE-HCTZ 37.5-25MG 1 EACH TAB PO SCH (10:07)
--- NOTE | 2022-04-26 10:38 | P.PN ---
Subjective This is a pleasant 61-year-old female past medical history significant for SVT, migraines, anxiety, depression, hypertension, chronic nicotine dependence, family history of coronary artery disease. She follows in the office with Dr. Sims. We have been asked to see in consultation for chest pain. Patient presents to the emergency department with multiple complaints. She has been having left sided chest discomfort, located under her left breast and left axilla and radiating to her left shoulder. Acute coronary syndrome was ruled out with no EKG evidence of ischemia and negative cardiac enzymes. She was initially scheduled for stress test, however, Patient's echocardiogram revealed EF 50-55%, severe pulmonary hypertension RVSP 85.6mmHg, Severe mitral regurgitation, moderate to severe mitral stenosis, enlarged ventricle, enlarged left atrium. Recommendation was for DENISE and right and left heart catheterization. 04/24/2022 Patient underwent DENISE with Dr. Sims on 04/24 which revealed EF of 5055 percent, severe restriction of the mitral valve leaflet mobility that is thickened and calcified consistent with rheumatic mitral valve, moderate to severe mitral regurgitation, left ventricular systolic function is normal, left atrium appears enlarged, mild to moderate tricuspid regurgitation, no left to right shunt or [id number] shunt, aortic root appears normal. 04/25/2022 Patient underwent right and left cardiac catheterization with Dr. Sims which revealed severe pulmonary hypertension, mean PAWP 22mm, mean PA pressure 43mm. No evidence of shunting from left to right. Severe mitral stenosis. Labs: WBC 8.6, hemoglobin 15, platelets 209 PHYSICAL EXAMINATION Blood pressure 106/62, heart rate 88, afebrile, oxygen saturation 74% on room air CONSTITUTIONAL: No apparent distress. HEENT: Head is normocephalic. Neck Supple. No JVD CHEST EXAMINATION: Lungs are clear to auscultation. No chest wall tenderness is noted on palpation or with deep breathing. HEART EXAMINATION: Regular rate and rhythm. S1, S2 heard. No murmurs, gallops or rub. ABDOMEN: Soft, nontender. Positive bowel sounds. EXTREMITIES: 2+ peripheral pulses, no lower extremity edema, right hand tenderness, swelling and blistering from IV site after IV contrast given and no calf tenderness. SKIN: warm, dry NEUROLOGIC EXAMINATION: Patient is awake, alert and oriented x3. ASSESSMENT Chest discomfort, acute coronary syndrome was ruled out Thickened and calcified mitral valve consistent with rheumatic mitral valve on DENISE Moderate to Severe mitral regurgitation Mild to moderate tricuspid regurgitation Shortness of breath Sinus tachycardia History of migraines History of anxiety and depression Hypertension Chronic nicotine dependence History of coronary artery disease Dyslipidemia PLAN CT surgery consulted for Mitral valve replacement, currently following, patient undergoing pre-operative testing Continue current cardiac medications From a cardiology perspective, patient is stable to be discharged home today after testing completed Follow up outpatient with Dr. Sims on 04/30/2022. Nurse practitioner note has been reviewed by physician. Signing provider agrees with the documented findings, assessment, and plan of care. Objective - Vital Signs Vital signs: Vital Signs Temp 97.9 F 04/26/22 07:00 Pulse 88 04/26/22 07:00 Resp 20 04/26/22 07:00 BP 106/62 04/26/22 07:00 Pulse Ox 94 L 04/26/22 07:00 FiO2 Intake & Output 04/25/22 04/26/22 04/26/22 18:59 06:59 18:59 Intake Total 50 1000 Balance 50 1000 Intake: IV 50 Oral 1000 Other: Voiding Method Toilet # Voids 1 - Labs CBC & Chem 7: 04/26/22 06:02 04/24/22 04:59 Labs: Abnormal Lab Results - Last 24 Hours (Table) 04/26/22 Range/Units 06:02 Hemoglobin A1c 6.4 H (0.0-6.0) % Microbiology - Last 24 Hours (Table) 04/25/22 17:30 Nasal Screen MRSA/MSSA - Preliminary Nasal Swab
--- NOTE | 2022-04-26 10:44 | P.PN ---
Subjective Progress Note Date: 04/26/22 Principal diagnosis: chest pain. She is feeling the same compared to prior with chronic exertional sob. No pain. Objective - Vital Signs Vital signs: Vital Signs Temp 97.9 F 04/26/22 07:00 Pulse 88 04/26/22 07:00 Resp 20 04/26/22 07:00 BP 106/62 04/26/22 07:00 Pulse Ox 94 L 04/26/22 07:00 FiO2 Intake & Output 04/25/22 04/26/22 04/26/22 18:59 06:59 18:59 Intake Total 50 1000 Balance 50 1000 Intake: IV 50 Oral 1000 Other: Voiding Method Toilet # Voids 1 - Exam Constitutional: No acute distress, conversant, pleasant Eyes:Anicteric sclerae, moist conjunctiva, no lid-lag, PERRLA, ENMT: Oropharynx clear, no erythema, exudates Neck: Supple, FROM, no masses, or JVD, No carotid bruits, No thyromegaly Lungs: Clear to auscultation, Clear to percussion, Normal respiratory effort, no accessory muscle use Cardiovascular: Heart regular in rate and rhythm, No murmurs, gallops, or rubs, No peripheral edema Abdominal: Soft, Nontender, no guarding, rebound or rigidity, Normoactive bowel sounds, No hepatomegaly, No splenomegaly, No palpable mass Skin: Normal temperature, tone, texture, turgor, no induration, No subcutaneous nodules, No rash, lesions, No ulcers Extremities: No digital cyanosis, No clubbing, Pedal pulses intact and symmetrical, Radial pulses intact and symmetrical, No calf tenderness Psychiatric: Alert and oriented to person, place and time, appropriate affect, intact judgement Neuro: Muscles Strength 5/5 in all 4 extremities, Sensation to light touch grossly present throughout, Cranial nerves II-XII grossly intact, no focal sensory deficits - Labs CBC & Chem 7: 04/26/22 06:02 04/24/22 04:59 Labs: Abnormal Lab Results - Last 24 Hours (Table) 04/26/22 Range/Units 06:02 Hemoglobin A1c 6.4 H (0.0-6.0) % Microbiology - Last 24 Hours (Table) 04/25/22 17:30 Nasal Screen MRSA/MSSA - Preliminary Nasal Swab Assessment and Plan Plan: Acute chest pain Sinus tachycardia Elevated d-dimer Severe pulmonary hypertension Severe mitral regurgitation Moderate to severe mitral stenosis -ACS ruled out, negative troponin -TSH normal -Patient on aspirin and statin - Echo showed LVEF of 50-55%, severe pulm HTN and mitral valve stenosis and regurgitation. 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 -Had left and right heart cath on 04/25 -Currently undergoing work up per CT surgery for MV surgery HTN Depression/anxiety -Continue home medications DVT ppx: heparin sq Code status: Full code Anticipated discharge place: home Anticipated discharge time: 3-4 days
--- NOTE | 2022-04-26 11:51 | P.CNPUL ---
History of Present Illness Consult date: 04/26/22 Requesting physician: Blake Spencer Reason for consult: dyspnea, other Chief complaint: Shortness of breath. History of present illness: Pulmonary consult dated 04/26/2022. This is a pleasant 61-year-old female who I'm asked to see for preop clearance. She apparently is scheduled to have either mitral valve replacement or repair in the future. The patient was minute with a diagnosis of shortness of breath. The patient is a heavy smoker, having smoked a pack a day for 44 years. The pa jazz is likely to be discharged home. She apparently did have a spirometry today. She's not receiving any IV fluids, or supplemental oxygen. She has never been diagnosed with COPD. All medications including Celexa, Adderall, Klonopin, triamterene/hydrochlorothiazide, Inderal LA, and [place]. Cardiac catheterization apparently showed severe pulmonary hypertension, and severe mitral stenosis. The patient was admitted on April [address] angiogram was negative for pulmonary embolism. Current CBC was normal. Sodium 138, potassium 3.9, chlorides 97, CO2 33, BUN 19, creatinine 0.78. TSH is normal. Chest x-ray showed no acute pulmonary disease. She denies any cough, wheezing, chest tightness, or phlegm production. Review of Systems REVIEW OF SYSTEMS: CONSTITUTIONAL: [Negative.] NEUROLOGIC: [ Negative.] HEENT: [ Negative.] CARDIAC: Shortness of breath. PULMONARY: Shortness of breath. GI: [Negative.] : [Negative.] RHEUMATOLOGIC: [ Negative.] IMMUNOLOGIC: [ Negative.] ENDOCRINE: [Negative. ] DERMATOLOGIC: [Negative.] Past Medical History Past Medical History: Chest Pain / Angina, Hypertension, Pneumonia, Supraventricular Tachycardia (SVT) Additional Past Medical History / Comment(s): migraines, bronchitis, H. 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 Past Psychological History: Depression Smoking Status: Current every day smoker Past Alcohol Use History: None Reported Past Drug Use History: None Reported - Past Family History Mother Family Medical History: Coronary Artery Disease (CAD) Additional Family Medical History / Comment(s): Mother is still alive at 79 years old Father Family Medical History: Cancer, Diabetes Mellitus Additional Family Medical History / Comment(s): Father is still alive at 82 years familyi Family Medical History: Coronary Artery Disease (CAD) Additional Family Medical History / Comment(s): heart disease Medications and Allergies Home Medications Medication Instructions Recorded Confirmed Type Citalopram Hydrobromide [CeleXA] 20 mg PO BID 04/07/22 04/23/22 History Dextroamphetamine/Amphetamine 20 mg PO DAILY@1200 04/07/22 04/22/22 History [Adderall Xr 20 mg Capsule] Dextroamphetamine/Amphetamine 30 mg PO DAILY@0600 04/07/22 04/22/22 History [Adderall Xr 30 mg Capsule] HYDROcodone/APAP 7.5-325MG [[place] 1 tab PO QID PRN 04/07/22 04/22/22 History 7.5-325] Propranolol LA [Inderal LA] 80 mg PO DAILY 04/07/22 04/22/22 History Triamterene/Hydrochlorothiazid 1 tab PO DAILY 04/07/22 04/22/22 History [Triamterene-Hctz 37.5-25 mg Tb] clonazePAM [KlonoPIN] 0.5 mg PO BID PRN 04/07/22 04/22/22 History Allergies Allergy/AdvReac Type Severity Reaction Status Date / Time risperidone [From Risperdal] AdvReac SPASMS, Verified 04/22/22 19:44 AGGITATION Physical Exam Osteopathic Statement: *. No significant issues noted on an osteopathic structural exam other than those noted in the History and Physical/Consult. Vitals: Vital Signs Temp Pulse Pulse Resp BP BP BP 04/26/22 07:00 97.9 F 88 20 106/62 04/26/22 02:58 98.4 F 68 18 92/55 04/25/22 20:00 90 18 04/25/22 19:43 98.3 F 90 18 108/67 04/25/22 16:15 97 124/77 04/25/22 15:54 98.8 F 93 16 118/63 04/25/22 15:35 98.5 F 90 15 118/63 04/25/22 15:15 99 117/67 04/25/22 14:35 98.1 F 83 16 111/67 04/25/22 14:15 91 111/73 04/25/22 13:45 99 117/67 04/25/22 13:41 98.7 F 95 16 104/67 04/25/22 13:15 95 106/71 04/25/22 13:00 97 107/71 04/25/22 12:45 94 106/67 04/25/22 12:30 98.2 F 86 18 113/74 Pulse Ox 04/26/22 07:00 94 L 04/26/22 02:58 96 04/25/22 20:00 04/25/22 19:43 94 L 04/25/22 16:15 97 04/25/22 15:54 97 04/25/22 15:35 95 04/25/22 15:15 95 04/25/22 14:35 95 04/25/22 14:15 95 04/25/22 13:45 95 04/25/22 13:41 95 04/25/22 13:15 95 04/25/22 13:00 95 04/25/22 12:45 95 04/25/22 12:30 93 L Intake and Output 04/25/22 04/26/22 04/26/22 22:59 06:59 14:59 Intake Total 500 500 Balance 500 500 Intake: Oral 500 500 Other: Voiding Method Toilet No acute distress, oriented 3. Room air saturation is 96%. HEENT examination is grossly unremarkable. Neck supple. Full range of motion. No adenopathy thyromegaly or neck vein distention. Cardiovascular examination reveals regular rhythm rate. S1-S2 normal. No S3 or S4. No discernible murmur noted. Heart rate 88 bpm. Lungs reveal clear breath sounds. Breath sounds are equal bilaterally. No adventitious lung sounds including wheezes rhonchi or crackles. Abdomen soft bowel sounds are heard. No masses or tenderness. Extremities are intact. No cyanosis clubbing or edema. Skin is without rash or lesion. Neurologic examination is brief but nonfocal. Results - Laboratory Findings CBC and BMP: 04/26/22 06:02 04/24/22 04:59 PT/INR, D-dimer PT 10.3 sec (9.0-12.0) 04/22/22 15:32 INR 0.9 (<1.2) 04/22/22 15:32 D-Dimer 0.67 mg/L FEU (<0.60) H 04/22/22 15:32 Abnormal lab findings: Abnormal Labs 04/22/22 04/22/22 04/22/22 15:32 15:32 15:32 Hgb 16.1 H D-Dimer 0.67 H Chloride 96 L Carbon Dioxide BUN Glucose 104 H Hemoglobin A1c AST 42 H ALT 40 H Total Protein 8.4 H Triglycerides VLDL Cholesterol, Calc Urine Opiates Screen Ur Amphetamines Screen U Benzodiazepines Scrn 04/22/22 04/23/22 04/24/22 18:20 05:35 04:59 Hgb D-Dimer Chloride 97 L Carbon Dioxide 33 H BUN 19 H Glucose 112 H Hemoglobin A1c AST ALT Total Protein Triglycerides 254.00 H VLDL Cholesterol, Calc 50.80 H Urine Opiates Screen Detected H Ur Amphetamines Screen Detected H U Benzodiazepines Scrn Detected H 04/26/22 06:02 Hgb D-Dimer Chloride Carbon Dioxide BUN Glucose Hemoglobin A1c 6.4 H AST ALT Total Protein Triglycerides VLDL Cholesterol, Calc Urine Opiates Screen Ur Amphetamines Screen U Benzodiazepines Scrn - Diagnostic Findings Chest x-ray: image reviewed CT scan - chest: image reviewed Assessment and Plan Assessment: Shortness of breath, likely secondary to severe mitral stenosis, with anticipated mitral valve replacement or repair, in the future. Possible underlying COPD, from 44 years of tobacco use. History of SVT. History of previous knee surgery. History of depression. Plan: Plan dated 04/26/2022. The patient apparently had spirometry. I have not seen it yet. This will determine her operative risk, based on the FEV1, and the MVV. Additional recommendations and suggestions are forthcoming. The patient thinks that she is likely to be discharged. I did explain to her that the pulmonary function test serve 2 purposes, one, the diagnosis of chronic lung disease, and 2, preoperative risk evaluation. The patient is counseled about the importance of smoking cessation. No additional recommendations are made at this time. Time with Patient: Greater than 30
[2022-04-26] MEDS: HYDROcodone/APAP 7.5-325MG 1 EACH TAB PO PRN (15:37)
[2022-04-26 16:04] LABS: African American GFR (CKD) 103.1 (60.0-200.0); Anion Gap 16.6 mmol/L (10.00-18.00); BUN/Creat Ratio 16.49 Ratio (12.00-20.00); Blood Urea Nitrogen 12.1 mg/dL (9.0-27.0); Calcium 9.3 mg/dL (8.7-10.3); Carbon Dioxide 23.8 mmol/L (20.0-27.5); Magnesium 2.2 mg/dL (1.5-2.4); Non-African American GFR(CKD) 88.9 (60.0-200.0); Potassium 3.3 mmol/L (3.5-5.5)
[2022-04-26] MEDS ORDERED: bisacodyL 5 MG TABLET.DR PO STA (21:25)
[2022-04-27] MEDS: SODIUM CHLORIDE 0.9% 1,000 ML in EMPTY BAG 1 BAG IV SCH (01:00)
[2022-04-27] MEDS: CITALOPRAM HYDROBROMIDE 20 MG TAB PO SCH (09:31)
[2022-04-27] MEDS: ATORVASTATIN 20 MG TAB PO SCH (09:31)
[2022-04-27] MEDS: TRIAMTERENE-HCTZ 37.5-25MG 1 EACH TAB PO SCH (09:31)
[2022-04-27] MEDS: ASPIRIN 81 MG PO SCH (09:31)
[2022-04-27] MEDS: HEPARIN SODIUM,PORCINE/PF 5,000 UNIT/0.5 ML SYRINGE SQ SCH (09:31)
--- NOTE | 2022-04-27 10:59 | P.PN ---
Subjective Progress Note Date: 04/27/22 Principal diagnosis: This is a 61-year-old female patient who follows on an outpatient basis with Dr. Santos for primary care and Dr. Sims for cardiology. She has a past medical h istory significant for SVT, hypertension, current tobacco dependence, depression, remote history of pneumonia, and family history of coronary artery disease. She presented to [facility] emergency department with complaints of chest pain radiating to her back and arm which has been intermitt ent for a year. She also endorsed shortness of breath, lower extremity edema, nausea/vomiting, and lightheadedness. She states her shortness of breath is with activity only, however has gotten so bad that just walking about in her house is too much for her. In the emergency room a chest x-ray was completed demonstrating no acute process. CTA of the chest demonstrated no pulmonary embolism, and no other cardiopulmonary process. EKG demonstrated sinus tach with heart rate 116 bpm with right axis deviation. Lab work revealed WBC 8.8, hemoglobin 16.1, platelet count 257,000, INR 0.9, d-dimer 0.67, creatinine 0.68, AST 42, ALT 40, troponins were negative 3, Covid PCR was negative. Urine drug screen was positive for opiates, amphetamines, and benzodiazepines, however the patient is on prescribed Adderall, Klonopin, and [place]. The patient was admitted for evaluation and treatment with consultation placed to cardiology. An echocardiogram was completed demonstrating normal left ventricular systolic function with EF 50-55%, severe pulmonary hypertension with RVSP 86 mmHg, mildly increased left atrium with severely increased left atrial volume, severe mitral regurgitation, and mild to moderate pulmonic regurgitation. A transesophageal echocardiogram was completed yesterday demonstrating thickened mitral valve with restricted leaflet mobility, moderate to severe mitral regurgitation, mild MAC, severely enlarged left atrium, mild to moderate tricuspid regurgitation, and normal left ventricular systolic function. For further evaluation a heart catheterization was completed today demonstrating mild nonobstructive disease involving the circumflex coronary artery. Consultation was placed to cardiothoracic surgery for surgical recommendations. The patient was seen and examined in follow-up today 04/27/2022 at her bedside on the cardiac observation unit 6 N. She is sitting up to the bedside chair, eating her breakfast, is awake, alert, oriented 3 and is in no acute distress. Denies any complaints of pain or shortness of breath with just sitting. She does report that she does get a little short winded with activity, which is resolved with periods of rest. A bedside FEV1 was completed yesterday 04/26/2022 which showed a predicted value of 42% and a base volume of 1.04 L. Oxygen saturations at this time are 94% on room air and she is achieving 1850 mL on her incentive spirometry with encouragement. Remote telemetry showing normal sinus rhythm heart rate 92 BPM. A 5 m walk test was completed yesterday 04/26/2022. Her STS risk score has been calculated at 2.340% and has been discussed with the patient. Objective - Vital Signs Vital signs: Vital Signs Temp 97.5 F L 04/26/22 19:09 Pulse 104 H 04/26/22 19:09 Resp 19 04/26/22 19:09 BP 130/72 04/26/22 19:09 Pulse Ox 96 04/26/22 19:09 FiO2 Intake & Output 04/26/22 04/27/22 04/27/22 18:59 06:59 18:59 Intake Total 720 240 Balance 720 240 Intake: Oral 720 240 Other: Voiding Method Toilet # Voids 2 0 - Exam CONSTITUTIONAL: Appears comfortable, cooperative, no acute distress. RESPIRATORY: Lungs sounds diminished throughout bilaterally, with few scattered crackles to her bilateral bases. Respirations are symmetrical and nonlabored. Currently on room air with oxygen saturation 94%. Able to achieve 1850 mL on incentive spirometry. Strong dry cough. CARDIOVASCULAR: S1, S2 present. Regular rate and rhythm, sinus rhythm on telemetry, heart rate 92 BPM. Palpable peripheral pulses bilaterally. No edema present. No calf pain or tenderness noted. GASTROINTESTINAL: Abdomen soft, nontender, nondistended. Active bowel sounds present 4 quadrants. Tolerating diet. GENITOURINARY: Continues to void. INTEGUMENTARY: Skin is warm and dry. No clubbing or cyanosis is present. NEUROLOGIC: Cranial nerves II through XII intact. No focal deficits. MUSKULOSKELETAL: Able to move all extremities, strength equal bilaterally, gait normal. PSYCHIATRIC: Alert and oriented to person place and time, appropriate affect, intact judgment and insight. - Allied health notes Allied health notes reviewed: nursing - Labs CBC & Chem 7: 04/26/22 06:02 04/26/22 05:58 Labs: Abnormal Lab Results - Last 24 Hours (Table) 04/26/22 Range/Units 05:58 Potassium 3.3 L (3.5-5.5) mmol/L Microbiology - Last 24 Hours (Table) 04/25/22 17:30 Nasal Screen MRSA/MSSA - Final Nasal Swab Assessment and Plan Assessment: 1. Severe mitral regurgitation, thickened mitral valve with restricted leaflet mobility, mild MAC 2. Mild to moderate tricuspid regurgitation 3. Severe pulmonary hypertension with RVSP 86 mmHg 4. Normal left ventricular systolic function with EF 50-55% 5. 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 History SVT 7. History of hypertension 8. Current tobacco dependence 9. Depression 10. Remote history of pneumonia 11. Family history of coronary artery disease Plan: 1. Preoperative teaching for mitral valve repair/replacement reinforced with the patient. 2. Preoperative testing is in place. 3. A 5 m walk test was completed with the patient yesterday 04/26/2022 with time 1: 2.40 seconds, time 2: 2.62 seconds, time 3: 2.27 seconds. 4. STS risk score was calculated and discussed with the patient. 5. Medical management other comorbidities per primary care service and cardiology. 6. Continue to reinforced the importance of risk modification including smoking cessation. 7. Per the cardiothoracic surgery standpoint patient can be discharged home when okay with primary care and other consultants and brought back on an maria ines ctive basis for mitral valve repair/replacement surgery. 8. Bedside FEV1 was completed yesterday with a predicted value of 42 percent and a base volume of 1.04 L. 9. More recommendations to follow based on patient's clinical course. Time with Patient: Greater than 30
[2022-04-27 12:07] VITALS: RESP 18
--- NOTE | 2022-04-27 12:26 | P.PN ---
Subjective Progress Note Date: 04/27/22 This is a pleasant 61-year-old female past medical history significant for SVT, migraines, anxiety, depression, hypertension, chronic nicotine dependence, family history of coronary artery disease. She follows in the office with Dr. Sims. We have been asked to see in consultation for chest pain. Patient presents to the emergency department with multiple complaints. She has been having left sided chest discomfort, located under her left breast and left axilla and radiating to her left shoulder. Acute coronary syndrome was ruled out with no EKG evidence of ischemia and negative cardiac enzymes. She was initially scheduled for stress test, however, Patient's echocardiogram revealed EF 50-55%, severe pulmonary hypertension RVSP 85.6mmHg, Severe mitral regurgitation, moderate to severe mitral stenosis, enlarged ventricle, enlarged left atrium. Patient underwent DENISE with Dr. Sims on 04/24 which revealed EF of 5055 percent, severe restriction of the mitral valve leaflet mobility that is thickened and calcified consistent with rheumatic mitral valve, moderate to severe mitral regurgitation, left ventricular systolic function is normal, left atrium appears enlarged, mild to moderate tricuspid regurgitation, no left to right shunt or [id number] shunt, aortic root appears normal. She subsequently underwent right and left cardiac catheterization with Dr. Sims which revealed severe pulmonary hypertension, mean PAWP 22mm, mean PA pressure 43mm. No evidence of shunting from left to right. Severe mitral stenosis. And Mild nonobstructive disease involving the circumflex. 04/27/2022 Patient was seen and examined resting comfortably in a chair. She is overall feeling well. She has no lower extremity edema which she's had quite persistently for a while. Vital signs are stable. She is being cleared for discharge. She'll follow-up in the office with Dr. Sims. She'll follow-up with CT surgery for mitral valve replacement. Objective - Vital Signs Vital signs: Vital Signs Temp 97.7 F 04/27/22 07:00 Pulse 94 04/27/22 08:00 Resp 18 04/27/22 07:00 BP 107/75 04/27/22 07:00 Pulse Ox 94 L 04/27/22 07:00 FiO2 Intake & Output 04/26/22 04/27/22 04/27/22 18:59 06:59 18:59 Intake Total 720 240 Balance 720 240 Intake: Oral 720 240 Other: Voiding Method Toilet # Voids 2 0 - Exam CONSTITUTIONAL: No apparent distress. HEENT: Head is normocephalic. Neck Supple. No JVD CHEST EXAMINATION: Lungs are clear to auscultation. No chest wall tenderness is noted on palpation or with deep breathing. HEART EXAMINATION: Regular rate and rhythm. S1, S2 heard. No murmurs, gallops or rub. ABDOMEN: Soft, nontender. Positive bowel sounds. EXTREMITIES: 2+ peripheral pulses, no lower extremity edema, right hand tenderness, swelling and blistering from IV site after IV contrast given and no calf tenderness. SKIN: warm, dry NEUROLOGIC EXAMINATION: Patient is awake, alert and oriented x3. - Labs CBC & Chem 7: 04/26/22 06:02 04/26/22 05:58 Labs: Abnormal Lab Results - Last 24 Hours (Table) 04/26/22 Range/Units 05:58 Potassium 3.3 L (3.5-5.5) mmol/L Microbiology - Last 24 Hours (Table) 04/25/22 17:30 Nasal Screen MRSA/MSSA - Final Nasal Swab Assessment and Plan Assessment: Chest discomfort, acute coronary syndrome was ruled out Thickened and calcified mitral valve consistent with rheumatic mitral valve on DENISE Moderate to Severe mitral regurgitation Mild to moderate tricuspid regurgitation Shortness of breath Sinus tachycardia History of migraines History of anxiety and depression Hypertension Chronic nicotine dependence History of coronary artery disease Dyslipidemia Plan: From our standpoint patient patient is stable to be discharged home today after testing completed. Follow up outpatient with Dr. Sims as scheduled. PHIL[employer] note has been reviewed, I agree with a documented findings and plan of care. Patient was seen and examined.
--- NOTE | 2022-04-27 13:51 | P.DS ---
Providers Date of admission: 04/25/22 09:14 Expected date of discharge: 04/27/22 Attending physician: Blake Spencer MD Consults: 04/22/22 19:56 Consult Physician Urgent Consulting Provider: [facility] Consult Reason/Comments: Chest pain Do you want consulting provider notified?: Yes 04/25/22 13:18 Consult Physician Routine Consulting Provider: Jose Lerma Consult Reason/Comments: Mitral valve replacement Do you want consulting provider notified?: Already Contacted 04/25/22 16:18 Consult Physician Routine Consulting Provider: Valencia Araya Consult Reason/Comments: preop mitral valve surgery clearance Do you want consulting provider notified?: Yes, Notify in am Primary care physician: [facility] Course: 61-year-old female with past medical history significant for SVT, migraines, anxiety, depression, hypertension, chronic nicotine dependence, family history of coronary artery disease presented to the ER due to worsening of sob and acute on chronic left sided chest discomfort, located under her left breast and left axilla and radiating to her left shoulder. She states her pain comes and goes, no specific factors start the pain. Not attributed to activity. No specific associated symptoms. She sometimes feels dizziness, lightheadedness, diaphoretic, nausea and sometimes vomiting. But also states sometimes these symptoms do not come on with the chest pain. She has no specific alleviating factors. She also complaints of worsening abdominal bloating, pain, tenderness and constipation. No prior history of NH, CAD, Stroke, diabetes, hypertension, dyslipidemia, seizures. EKG reveals sinus rhythm, heart rate 93, minimal ST depression inferiorly. Prior EKG with similar findings. Chest CT no evidence of pulmonary embolism, no suspicious pulmonary mass reported. Laboratory reviewed, troponin negative 3, urine tox positive for opiates, amphetamines, benzodiazepines, triglycerides 254, cholesterol 196, LDL 99, HDL 45, CBC unremarkable, d-dimer 0.67, sodium 137, potassium 4.0, BUN 16, serum creat 0.6, AST 42, ALT 40 She was admitted, had a TTE that showed LVEF of 50-55%, severe pulm HTN and mitral valve stenosis and regurgitation. Cardiology and CT surgery consulted. Pateint underwent DENISE that showed thickened and calcified mitral valve, features consistent with rheumatic mitral valve disease. Patient underwent DENISE with Dr. Sims on 04/24 which revealed EF of 5055 percent, severe restriction of the mitral valve leaflet mobility that is thickened and calcified consistent with rheumatic mitral valve, moderate to severe mitral regurgitation, left ventricular systolic function is normal, left atrium appears enlarged, mild to moderate tricuspid regurgitation, no left to right shunt or [id number] shunt, aortic root appears normal. She subsequently underwent right and left cardiac catheterization with Dr. Sims which revealed severe pulmonary hypertension. No evidence of shunting from left to right. Severe mitral stenosis. And Mild nonobstructive disease involving the circumflex. Her symptoms improved towards the end of the admission. Patient was evaluated by cardiothoracic surgery who advised smoking cessation strongly. Per the cardiothoracic surgery standpoint patient can be discharged home for now with elective basis for mitral valve repair/replacement surgery. I discussed the case with cardiology on the day of discharge, she will be sent home on small dose beta vince as well as Lasix. She will need follow-up with cardiology in the office. She will be discharged home in stable condition. Time for discharge 35 minutes Patient was seen and examined on the day of discharge, 04/27. Plan - Discharge Summary Discharge Rx Participant: No New Discharge Prescriptions: New Aspirin 81 mg PO DAILY 90 Days #90 tab Potassium Chloride ER [K-Dur 10] 10 meq PO DAILY 30 Days #30 tab Atorvastatin [Lipitor] 20 mg PO DAILY 30 Days #30 tab Furosemide [Lasix] 20 mg PO DAILY 30 Days #30 tab Metoprolol Tartrate 25 mg PO BID 30 Days #60 tab Continue Citalopram Hydrobromide [CeleXA] 20 mg PO BID clonazePAM [KlonoPIN] 0.5 mg PO BID PRN PRN Reason: Anxiety HYDROcodone/APAP 7.5-325MG [[place] 7.5-325] 1 tab PO QID PRN PRN Reason: Pain Discontinued Dextroamphetamine/Amphetamine [Adderall Xr 30 mg Capsule] 30 mg PO DAILY@0600 Dextroamphetamine/Amphetamine [Adderall Xr 20 mg Capsule] 20 mg PO DAILY@1200 Triamterene/Hydrochlorothiazid [Triamterene-Hctz 37.5-25 mg Tb] 1 tab PO DAILY Propranolol LA [Inderal LA] 80 mg PO DAILY Discharge Medication List Citalopram Hydrobromide [CeleXA] 20 mg PO BID 04/07/22 [History] HYDROcodone/APAP 7.5-325MG [[place] 7.5-325] 1 tab PO QID PRN 04/07/22 [History] clonazePAM [KlonoPIN] 0.5 mg PO BID PRN 04/07/22 [History] Aspirin 81 mg PO DAILY 90 Days #90 tab 04/27/22 [Rx] Atorvastatin [Lipitor] 20 mg PO DAILY 30 Days #30 tab 04/27/22 [Rx] Furosemide [Lasix] 20 mg PO DAILY 30 Days #30 tab 04/27/22 [Rx] Metoprolol Tartrate 25 mg PO BID 30 Days #60 tab 04/27/22 [Rx] Potassium Chloride ER [K-Dur 10] 10 meq PO DAILY 30 Days #30 tab 04/27/22 [Rx] Follow up Appointment(s)/Referral(s): Nirav Santos MD [Primary Care Provider] - 1-2 days Jose Lerma MD [STAFF PHYSICIAN] - 05/13/22 2:30 pm Yimi Sims MD [STAFF PHYSICIAN] - 04/30/22 9:00 am
[2022-04-27 14:02] VITALS: BP 115/70; PULSE 104; TEMP 97.4
--- NOTE | 2022-04-28 02:49 | PN ---
PROGRESS NOTE This is a pulmonary/critical care progress note. SUBJECTIVE: This is a 61-year-old female seen in room 622. The patient has severe mitral disease and apparently will have either a mitral valve replacement or repair in the near future. She is a smoker and does have underlying COPD. I did get a look at her spirometry. Based on spirometry, she is in the moderate increased operative risk range. The FEV1 was just a bit over 1 L. I would like to see her in the office after discharge so that we can optimize her COPD. Currently, she is on room air, not receiving any IV fluids. OBJECTIVE: VITAL SIGNS: Reviewed. Blood pressure 136/72, heart rate 90, respiratory rate 16, temperature is 38.1, and saturations are 94%. GENERAL: She appears in no acute distress. HEENT: Examination is grossly unremarkable. NECK: Supple, full range of motion. No adenopathy. Neck veins are flat. CARDIOVASCULAR: Examination reveals regular rhythm rate. A soft systolic murmur is noted. S1, S2, otherwise normal. LUNGS: Reveal relatively clear but diminished breath sounds. Scattered rhonchi are noted. No wheezes or crackles. ABDOMEN: Soft, bowel sounds are heard. EXTREMITIES: Intact. No cyanosis, clubbing, or edema. SKIN: Without rash. NEUROLOGIC: Examination is brief but nonfocal. ASSESSMENT: 1. Severe mitral stenosis, with anticipated mitral valve replacement or repair in the near future. 2. History of chronic tobacco use. 3. Chronic obstructive pulmonary disease, with an FEV1 which is just about a liter. PLAN: The patient will see me in the office before surgery. We will optimize her COPD. Based on spirometry, she is in the moderate increased operative risk range. MMODL / IJN: [id number] /
--- NOTE | 2022-04-29 12:33 | US ---
EXAMINATION TYPE: US arterial LE multi level DATE OF EXAM: 04/26/2022 9:17 AM CLINICAL HISTORY: [facility] preop open heart. Open heart surgery. History of tobacco use. Doppler Waveforms: Right: Multiphasic Left: Biphasic Pulse Volume Recording: Pressure Gradients: Ankle-Brachial Indices: Right: 1.14 Left: 1.12 Toe Brachial Indices: Right: 0.65 Left: 0.78 IMPRESSION: Normal study.
== END 2022-04-27 15:32 | disposition home or self-care (01) | DRG 287 ==
LOC: EC 14:55 → 6NMEDSUR 19:58 → OBSVTOIN 04-25 09:14
PROVIDERS: ADMIT Internal Medicine; ATTEND Internal Medicine
PROC: B24BZZ4 Ultrasonography of Heart with Aorta, Transesophageal (ICD-10-PCS; 2022-04-24)
PROC: 4A023N8 Measurement of Cardiac Sampling and Pressure, Bilateral, Percutaneous Approach (ICD-10-PCS; principal; 2022-04-25 10:40)
PROC: B2161ZZ Fluoroscopy of Right and Left Heart using Low Osmolar Contrast (ICD-10-PCS; principal; 2022-04-25 10:40)
DX: I08.1 Rheumatic disorders of both mitral and tricuspid valves (principal); F17.210 Nicotine dependence, cigarettes, uncomplicated; Z71.6 Tobacco abuse counseling; F32.A Depression, unspecified; F41.9 Anxiety disorder, unspecified; I10 Essential (primary) hypertension; E78.5 Hyperlipidemia, unspecified; I25.10 Atherosclerotic heart disease of native coronary artery without angina pectoris; I27.20 Pulmonary hypertension, unspecified; J44.9 Chronic obstructive pulmonary disease, unspecified; K59.00 Constipation, unspecified; Z20.822 Contact with and (suspected) exposure to COVID-19; Z79.899 Other long term (current) drug therapy; Z82.49 Family history of ischemic heart disease and other diseases of the circulatory system; Z87.01 Personal history of pneumonia (recurrent)
CPT/HCPCS: 36415; 71046; 71275; 80048; 80053; 80061; 80074; 80306; 81003; 82810; 83036; 83735; 83880; 84443; 84484; 85018; 85025; 85379; 85610; 85730; 87070; 87635; 93005; 93306; 93312; 93320; 93325; 93460; 93880; 93922; 93923; 94150; 94640; 96374; 99285

== ENCOUNTER 2022-05-15 16:05 | Inpatient (IN) | payer OTHER ==
[2022-05-15] MEDS ORDERED: FUROSEMIDE 10 MG/ML 4 ML VIAL IV STA (17:16)
[2022-05-15] MEDS ORDERED: MORPHINE SULFATE 4 MG/ML SYRINGE IVP STA ×2 (17:16→21:04)
[2022-05-15 18:02] LABS: Basophils % (A) 1 %; Eosinophils # (A) 0.1 k/uL (0-0.7); Eosinophils % (A) 1 %; HGB 13.8 gm/dL (11.4-16.0); Lymphocytes # (A) 1.7 k/uL (1.0-4.8); Lymphocytes % (A) 21 %; MCH 31.6 pg (25.0-35.0); MCHC 33.7 g/dL (31.0-37.0); Monocytes # (A) 0.5 k/uL (0-1.0); Monocytes % (A) 6 %; Neutrophils # (A) 5.7 k/uL (1.3-7.7); Neutrophils % (A) 69 %; Platelet Count 222 k/uL (150-450); RBC 4.36 m/uL (3.80-5.40); RDW 15.8 % (11.5-15.5); WBC 8.2 k/uL (3.8-10.6)
[2022-05-15 18:13] LABS: ALT 158 U/L (4-34); AST 132 U/L (14-36); African American GFR (CKD) >90 (>60 ml/min/1.73 sqM); Albumin 4.6 g/dL (3.5-5.0); Alkaline Phosphatase 232 U/L (38-126); Anion Gap 9 mmol/L; Blood Urea Nitrogen 17 mg/dL (7-17); Calcium 9.4 mg/dL (8.4-10.2); Carbon Dioxide 24 mmol/L (22-30); Chloride 107 mmol/L (98-107); Glucose 100 mg/dL (74-99); Lipase 19 U/L (23-300); Magnesium 1.8 mg/dL (1.6-2.3); Non-African American GFR(CKD) >90 (>60 ml/min/1.73 sqM); Potassium 3.6 mmol/L (3.5-5.1); Sodium 140 mmol/L (137-145); Total Bilirubin 1.4 mg/dL (0.2-1.3); Total Protein 7.4 g/dL (6.3-8.2)
[2022-05-15 18:58] LABS: Amorphous Sediment,Urine Occasional /hpf; Appearance,Urine Clear (Clear); Bilirubin,Urine Negative (Negative); Blood,Urine Negative (Negative); Color,Urine Yellow; Glucose,Urine (UA) Negative (Negative); Hyaline Casts,Urine 10 /lpf (0-2); Ketones,Urine Negative (Negative); Leukocyte Esterase,Urine Trace (Negative); Mucus,Urine Occasional /hpf; Nitrite,Urine Negative (Negative); PH, Urine 5.5 (5.0-8.0); Protein,Urine 1+ (Negative); RBC,Urine 1 /hpf (0-5); Specific Gravity,Urine 1.015 (1.001-1.035); Squamous Epithelial Cell,Urine 3 /hpf (0-4); Urobilinogen,Urine <2.0 mg/dL (<2.0); WBC,Urine 2 /hpf (0-5)
--- NOTE | 2022-05-15 20:12 | ED ---
General Adult HPI - General Chief complaint: Shortness of Breath Stated complaint: PCP sent,Heart Failure Time Seen by Provider: 05/15/22 16:38 Source: patient Mode of arrival: ambulatory - History of Present Illness Initial comments: This is a 61-year-old female with a past medical history including pulmonary hypertension, hypertension as well as congestive heart failure presented to the emergency department from her cardiothoracic surgeons office. The patient came in with increasing shortness of breath, abdominal distention and exertional dyspnea. The patient stated that the symptoms been present the last 2 weeks and worsening. The patient's cardiothoracic surgeon, Dr. Lerma, sent the patient in for eventual mitral valve repair however he wanted the patient admitted for medical management and optimization prior to surgery. The patient herself was rocking back and forth in bed, stating that she was having difficulty in breathing. The patient stated that she has been analogous for the last several days. The patient stated that she didn't taking her medications as prescribed and has been urinating "nonstop" but stated that her abdomen seemed to be distending and causing her pain and discomfort. The patient stated that every time she walks to her bathroom or anywhere else around her home, she becomes short of breath and has to sit down and gasp for air. The patient stated that this has been present and she was tired of it and wanted to come to the [facility] department because she wanted further treatment as well as her cardiac thoracic surgeon advising her to do so. The patient was resting in bed, tachypneic on my evaluation. The patient denied any fevers or chills. - Related Data Home Medications Medication Instructions Recorded Confirmed Citalopram Hydrobromide [CeleXA] 20 mg PO BID 04/07/22 05/15/22 HYDROcodone/APAP 7.5-325MG [[place] 1 tab PO QID PRN 04/07/22 05/15/22 7.5-325] clonazePAM [KlonoPIN] 0.5 mg PO BID PRN 04/07/22 05/15/22 Nicotine 14Mg/24Hr Patch [Habitrol] 1 patch TRANSDERM DAILY PRN 05/15/22 05/15/22 Previous Rx's Medication Instructions Recorded Aspirin 81 mg PO DAILY 90 Days #90 tab 04/27/22 Atorvastatin [Lipitor] 20 mg PO DAILY 30 Days #30 tab 04/27/22 Furosemide [Lasix] 20 mg PO DAILY 30 Days #30 tab 04/27/22 Metoprolol Tartrate 25 mg PO BID 30 Days #60 tab 04/27/22 Potassium Chloride ER [K-Dur 10] 10 meq PO DAILY 30 Days #30 tab 04/27/22 Allergies Allergy/AdvReac Type Severity Reaction Status Date / Time risperidone [From Risperdal] AdvReac SPASMS, Verified 05/15/22 17:44 AGGITATION Review of Systems ROS Statement: Those systems with pertinent positive or pertinent negative responses have been documented in the HPI. ROS Other: All systems not noted in ROS Statement are negative. Past Medical History Past Medical History: Chest Pain / Angina, Hypertension, Pneumonia, Supraventricular Tachycardia (SVT) Additional Past Medical History / Comment(s): migraines, bronchitis, H. 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 Past Psychological History: Depression Smoking Status: Former smoker Past Alcohol Use History: None Reported Past Drug Use History: None Reported - Past Family History Mother Family Medical History: Coronary Artery Disease (CAD) Additional Family Medical History / Comment(s): Mother is still alive at 79 years old Father Family Medical History: Cancer, Diabetes Mellitus Additional Family Medical History / Comment(s): Father is still alive at 82 years familyi Family Medical History: Coronary Artery Disease (CAD) Additional Family Medical History / Comment(s): heart disease General Exam Limitations: no limitations General appearance: alert, anxious, in distress, other (Tachypnea, respiratory distress) Head exam: Present: atraumatic, normocephalic Eye exam: Present: normal appearance, PERRL Pupils: Present: normal accommodation ENT exam: Present: normal exam, normal oropharynx, mucous membranes moist Neck exam: Present: normal inspection, full ROM Respiratory exam: Present: decreased breath sounds Cardiovascular Exam: Present: normal rhythm, tachycardia GI/Abdominal exam: Present: distended, other (Generalized tenderness to palpation) Extremities exam: Present: normal inspection, full ROM Back exam: Present: normal inspection, full ROM Neurological exam: Present: alert, oriented X3, CN II-XII intact Psychiatric exam: Present: normal affect, normal mood, anxious Skin exam: Present: warm, dry Course Vital Signs 05/15/22 05/15/22 05/15/22 16:18 17:35 18:56 Temperature 97.4 F L Pulse Rate 104 H Respiratory 28 H Rate Blood Pressure 134/75 O2 Sat by Pulse 93 L Oximetry Fraction of 40 40 Inspired Oxygen (FIO2) EKG Findings - EKG Comments: EKG Findings:: An EKG was obtained and read by myself. EKG showed significant motion artifact however showed a rate of 102, CA interval 171, QRS duration 85 and QTC 417. This EKG showed sinus tachycardia with occasional PVCs. There is no ST segment elevations or depressions noted however. Medical Decision Making - Medical Decision Making The patient was seen and evaluated in the emergency department. Physical exam, the patient was skipped acute respiratory distress. Due to the patient's status, the patient was started on BiPAP. The patient was given morphine for pain control as well as to decrease her air hunger. Laboratory workup was obtained and the patient did receive Lasix. The patient's current a thoracic surgeon, Dr. Lerma did present to the emergency department himself and recommended that the patient be admitted to medicine and optimized medically before surgical intervention on this admission. The patient was admitted by [facility] physicians previously and the covering physician was contacted for admission. I spoke with Dr. Barahona accept the admission. CTA of the chest was negative for PE but did show right pleural effusion. The patient continued to remain stable and was told this plan. The patient was admitted in stable condition. - Lab Data Result diagrams: 05/15/22 17:53 05/15/22 17:53 Lab Results 05/15/22 05/15/22 05/15/22 Range/Units 17:53 17:53 17:53 WBC (3.8-10.6) k/uL RBC (3.80-5.40) m/uL Hgb (11.4-16.0) gm/dL Hct (34.0-46.0) % MCV (80.0-100.0) fL MCH (25.0-35.0) pg MCHC (31.0-37.0) g/dL RDW (11.5-15.5) % Plt Count (150-450) k/uL MPV Neutrophils % % Lymphocytes % % Monocytes % % Eosinophils % % Basophils % % Neutrophils # (1.3-7.7) k/uL Lymphocytes # (1.0-4.8) k/uL Monocytes # (0-1.0) k/uL Eosinophils # (0-0.7) k/uL Basophils # (0-0.2) k/uL D-Dimer (<0.60) mg/L FEU Sodium 140 (137-145) mmol/L Potassium 3.6 (3.5-5.1) mmol/L Chloride 107 (98-107) mmol/L Carbon Dioxide 24 (22-30) mmol/L Anion Gap 9 mmol/L BUN 17 (7-17) mg/dL Creatinine 0.65 (0.52-1.04) mg/dL Est GFR (CKD-EPI)AfAm >90 (>60 ml/min/1.73 sqM) Est GFR (CKD-EPI)NonAf >90 (>60 ml/min/1.73 sqM) Glucose 100 H (74-99) mg/dL Calcium 9.4 (8.4-10.2) mg/dL Magnesium 1.8 (1.6-2.3) mg/dL Total Bilirubin 1.4 H (0.2-1.3) mg/dL AST 132 H (14-36) U/L ALT 158 H (4-34) U/L Alkaline Phosphatase 232 H (38-126) U/L Troponin I <0.012 (0.000-0.034) ng/mL NT-Pro-B Natriuret Pep 3870 pg/mL Total Protein 7.4 (6.3-8.2) g/dL Albumin 4.6 (3.5-5.0) g/dL Lipase 19 L (23-300) U/L Urine Color Urine Appearance (Clear) Urine pH (5.0-8.0) Ur Specific [place] (1.001-1.035) Urine Protein (Negative) Urine Glucose (UA) (Negative) Urine Ketones (Negative) Urine Blood (Negative) Urine Nitrite (Negative) Urine Bilirubin (Negative) Urine Urobilinogen (<2.0) mg/dL Ur Leukocyte Esterase (Negative) Urine RBC (0-5) /hpf Urine WBC (0-5) /hpf Ur Squamous Epith Cells (0-4) /hpf Amorphous Sediment (None) /hpf Hyaline Casts (0-2) /lpf Urine Mucus (None) /hpf 05/15/22 05/15/22 05/15/22 Range/Units 17:53 17:53 18:44 WBC 8.2 (3.8-10.6) k/uL RBC 4.36 (3.80-5.40) m/uL Hgb 13.8 (11.4-16.0) gm/dL Hct 41.0 (34.0-46.0) % MCV 94.0 (80.0-100.0) fL MCH 31.6 (25.0-35.0) pg MCHC 33.7 (31.0-37.0) g/dL RDW 15.8 H (11.5-15.5) % Plt Count 222 (150-450) k/uL MPV 9.0 Neutrophils % 69 % Lymphocytes % 21 % Monocytes % 6 % Eosinophils % 1 % Basophils % 1 % Neutrophils # 5.7 (1.3-7.7) k/uL Lymphocytes # 1.7 (1.0-4.8) k/uL Monocytes # 0.5 (0-1.0) k/uL Eosinophils # 0.1 (0-0.7) k/uL Basophils # 0.0 (0-0.2) k/uL D-Dimer 3.20 H (<0.60) mg/L FEU Sodium (137-145) mmol/L Potassium (3.5-5.1) mmol/L Chloride (98-107) mmol/L Carbon Dioxide (22-30) mmol/L Anion Gap mmol/L BUN (7-17) mg/dL Creatinine (0.52-1.04) mg/dL Est GFR (CKD-EPI)AfAm (>60 ml/min/1.73 sqM) Est GFR (CKD-EPI)NonAf (>60 ml/min/1.73 sqM) Glucose (74-99) mg/dL Calcium (8.4-10.2) mg/dL Magnesium (1.6-2.3) mg/dL Total Bilirubin (0.2-1.3) mg/dL AST (14-36) U/L ALT (4-34) U/L Alkaline Phosphatase (38-126) U/L Troponin I (0.000-0.034) ng/mL NT-Pro-B Natriuret Pep pg/mL Total Protein (6.3-8.2) g/dL Albumin (3.5-5.0) g/dL Lipase (23-300) U/L Urine Color Yellow Urine Appearance Clear (Clear) Urine pH 5.5 (5.0-8.0) Ur Specific [place] 1.015 (1.001-1.035) Urine Protein 1+ H (Negative) Urine Glucose (UA) Negative (Negative) Urine Ketones Negative (Negative) Urine Blood Negative (Negative) Urine Nitrite Negative (Negative) Urine Bilirubin Negative (Negative) Urine Urobilinogen <2.0 (<2.0) mg/dL Ur Leukocyte Esterase Trace H (Negative) Urine RBC 1 (0-5) /hpf Urine WBC 2 (0-5) /hpf Ur Squamous Epith Cells 3 (0-4) /hpf Amorphous Sediment Occasional H (None) /hpf Hyaline Casts 10 H (0-2) /lpf Urine Mucus Occasional H (None) /hpf Critical Care Time Critical Care Time: Yes Total Critical Care Time: 36 Disposition Clinical Impression: Congestive heart failure, Mitral valve disease, Fluid overload Disposition: ADMITTED IP TO THIS [facility] Condition: Stable Is patient prescribed a controlled substance at d/c from ED?: No Referrals: Nirav Santos MD [Primary Care Provider] - 1-2 days Time of Disposition: 20:15 Decision to Admit Reason: Admit from EC Decision Date: 05/15/22 Decision Time: 20:15
--- NOTE | 2022-05-15 20:12 | CT ---
EXAMINATION TYPE: CT angio chest DATE OF EXAM: 05/15/2022 COMPARISON: 04/22/2022 HISTORY: sob CT DLP: 433.3 mGycm Automated exposure control for dose reduction was used. CONTRAST: Performed with IV Contrast, patient injected with 100ml mL of Isovue 370. Images obtained from the thoracic inlet to the diaphragm with the IV contrast. There are 3-D post pro cessed images. There is a [id number] right pleural effusion. Heart size is fairly normal. No pericardial effus ion. There are no hilar masses. No mediastinal adenopathy. There is normal contrast opacification of the pulmonary arteries. No filling defect. The thoracic spine is intact. No compression fracture. Sternum is intact. No evidence of rib fracture . IMPRESSION: No evidence of pulmonary embolism. Right pleural effusion. No suspicious pulmonary mass.
[2022-05-15] MEDS ORDERED: NALOXONE 0.4 MG/ML 1 ML VIAL IV PRN (20:17)
[2022-05-15] MEDS ORDERED: bisacodyL 5 MG TABLET.DR PO STA (23:42)
[2022-05-15] MEDS ORDERED: NICOTINE 14MG/24HR PATCH TRANSDERM PRN (23:43)
[2022-05-15] MEDS ORDERED: clonazePAM 0.5 MG TAB PO PRN (23:43)
--- NOTE | 2022-05-15 23:44 | P.HPIM ---
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 The patient was recently admitted to the hospital from 04/25-04/27 for similar complaints, at which time she was diagnosed with the above mitral valve disease. The patient was advised to follow-up as an outpatient for an elective mitral valve repair/replacement with cardiothoracic surgery. Patient states however that shortly after being discharged, the shortness of breath worsened and she developed lower extremity edema as well as abdominal distention. She attributes the abdominal distention partly to her constipation and states that she has not had a bowel movement for several days. Reports a long-standing history of constipation. Denies experiencing fever, chills, chest pain, nausea, vomiting, diaphoresis. Upon arrival at the emergency room, the patient's SpO2 is 93% on room air with r espiratory rate 28 and pulse 104 with BP 134/75. Chest CTA revealed no evidence of PE with a right pleural effusion. EKG revealed sinus tachycardia with PVCs at 102 bpm with no notable ST/T-wave changes noted as reviewed by me. Laboratory evaluation was remarkable for troponin of less than 0.012, proBNP 3870, AST 132, ALT 158, and alk phos 232 with a total bilirubin 1.4. Review of systems: Pertinent positives and negatives as discussed in HPI, a complete review of systems was performed and all other systems are negative. Physical examination: General: non toxic, no distress, appears at stated age, obese Derm: no unusual rashes/lesions, warm Head: atraumatic, normocephalic, symmetric Eyes: EOMI, no lid lag, anicteric sclera, pupils equal round reactive to light ENT: Nose and ears atraumatic Neck: No cervical lymphadenopathy, trachea midline, supple Mouth: no lip lesion, mucus membranes moist Cardiovascular: S1S2 reg, systolic murmur appreciated, positive dorsalis pedis pulse bilateral, 1+ bilateral lower extremity pitting edema Lungs: Bibasilar rales appreciated without wheezing, no accessory muscle use Abdominal: Distended with minimal tenderness, no guarding Ext: muscle strength 5 out of 5 in all 4 extremities grossly, no gross muscle atrophy, no contractures, Neuro: CN II-XI grossly intact, no gross focal neuro deficits Psych: Alert, oriented, appropriate affect Assessment/plan Shortness of breath with lower extremity edema, suspect secondary to CHF in setting of severe mitral valve disease -Lasix IV every 12 hourly -Intake and output -Daily weights -Cardiology consult Abdominal distention, suspect multifactorial secondary to constipation with po ssible ascites from right heart failure -Obtain abdominal ultrasound -Patient will need IR guided paracentesis if significant ascites noted -Laxatives for now Abnormal LFTs -Likely due to liver congestion from right heart failure -Monitor for now and continue with above stated treatment DVT prophylaxis -Heparin subcu The patient is admitted with an anticipated greater than 2 midnight stay for e valuation of sob CODE STATUS: Full Code Discussed with: Patient Anticipated discharge date: 2-[address]: Home Past Medical History Past Medical History: Chest Pain / Angina, Heart Failure, Hypertension, Pneumonia, Supraventricular Tachycardia (SVT) Additional Past Medical History / Comment(s): migraines, bronchitis, H. 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 Past Anesthesia/Blood Transfusion Reactions: No Reported Reaction Past Psychological History: Depression Smoking Status: Former smoker Past Alcohol Use History: None Reported Past Drug Use History: None Reported Additional Drug Use History / Comment(s): stopped smoking 04/2022 - Past Family History Mother Family Medical History: Coronary Artery Disease (CAD) Additional Family Medical History / Comment(s): Mother is still alive at 79 years old Father Family Medical History: Cancer, Diabetes Mellitus Additional Family Medical History / Comment(s): Father is still alive at 82 y ears familyi Family Medical History: Coronary Artery Disease (CAD) Additional Family Medical History / Comment(s): heart disease Medications and Allergies Home Medications Medication Instructions Recorded Confirmed Type Citalopram Hydrobromide [CeleXA] 20 mg PO BID 04/07/22 05/15/22 History HYDROcodone/APAP 7.5-325MG [[place] 1 tab PO QID PRN 04/07/22 05/15/22 History 7.5-325] clonazePAM [KlonoPIN] 0.5 mg PO BID PRN 04/07/22 05/15/22 History Aspirin 81 mg PO DAILY 90 Days #90 tab 04/27/22 05/15/22 Rx Atorvastatin [Lipitor] 20 mg PO DAILY 30 Days #30 tab 04/27/22 05/15/22 Rx Furosemide [Lasix] 20 mg PO DAILY 30 Days #30 tab 04/27/22 05/15/22 Rx Metoprolol Tartrate 25 mg PO BID 30 Days #60 tab 04/27/22 05/15/22 Rx Potassium Chloride ER [K-Dur 10] 10 meq PO DAILY 30 Days #30 tab 04/27/22 05/15/22 Rx Nicotine 14Mg/24Hr Patch [Habitrol] 1 patch TRANSDERM DAILY PRN 05/15/22 05/15/22 History Allergies Allergy/AdvReac Type Severity Reaction Status Date / Time adhesive tape AdvReac Itching Verified 05/15/22 22:13 risperidone [From Risperdal] AdvReac SPASMS, Verified 05/15/22 17:44 AGGITATION Physical Exam Vitals: Vital Signs Temp Pulse Pulse Resp BP BP Pulse Ox 05/15/22 22:05 28 H 97 05/15/22 22:00 96.6 F L 98 35 H 152/74 98 05/15/22 20:59 102 H 22 104/89 94 L 05/15/22 20:14 100 22 194/97 97 05/15/22 18:56 05/15/22 17:35 05/15/22 16:18 97.4 F L 104 H 28 H 134/75 93 L FiO2 05/15/22 22:05 05/15/22 22:00 40 05/15/22 20:59 05/15/22 20:14 05/15/22 18:56 40 05/15/22 17:35 40 05/15/22 16:18 Intake and Output 05/15/22 05/15/22 05/16/22 14:59 22:59 06:59 Intake Total 120 Output Total 650 Balance -530 Intake: Oral 120 Output: Urine 650 Other: Voiding Method Indwelling Catheter Weight 77.111 kg Results CBC & Chem 7: 05/15/22 17:53 05/15/22 17:53 Labs: Abnormal Lab Results - Last 24 Hours (Table) 05/15/22 05/15/22 05/15/22 Range/Units 17:53 17:53 17:53 RDW 15.8 H (11.5-15.5) % D-Dimer 3.20 H (<0.60) mg/L FEU Glucose 100 H (74-99) mg/dL Total Bilirubin 1.4 H (0.2-1.3) mg/dL AST 132 H (14-36) U/L ALT 158 H (4-34) U/L Alkaline Phosphatase 232 H (38-126) U/L Lipase 19 L (23-300) U/L Urine Protein (Negative) Ur Leukocyte Esterase (Negative) Amorphous Sediment (None) /hpf Hyaline Casts (0-2) /lpf Urine Mucus (None) /hpf 05/15/ Range/Units 18:44 RDW (11.5-15.5) % D-Dimer (<0.60) mg/L FEU Glucose (74-99) mg/dL Total Bilirubin (0.2-1.3) mg/dL AST (14-36) U/L ALT (4-34) U/L Alkaline Phosphatase (38-126) U/L Lipase (23-300) U/L Urine Protein 1+ H (Negative) Ur Leukocyte Esterase Trace H (Negative) Amorphous Sediment Occasional H (None) /hpf Hyaline Casts 10 H (0-2) /lpf Urine Mucus Occasional H (None) /hpf Thrombosis Risk Factor Assmnt - Choose All That Apply Each Factor Represents 1 point: Age 41-60 years, Heart failure (<1month) Other Risk Factors: No Other congenital or acquired thrombophilia - If yes, enter type in comment: No Thrombosis Risk Factor Assessment Total Risk Factor Score: 2 Thrombosis Risk Factor Assessment Level: Low Risk
[2022-05-16] MEDS: ATORVASTATIN 20 MG TAB PO SCH ×2 (08:04→08:05)
[2022-05-16] MEDS: FUROSEMIDE 10 MG/ML 4 ML VIAL IV SCH ×2 (08:04→20:18)
[2022-05-16] MEDS: ASPIRIN 81 MG PO SCH ×2 (08:04→08:05)
[2022-05-16] MEDS: CITALOPRAM HYDROBROMIDE 20 MG TAB PO SCH ×2 (08:04→20:17)
[2022-05-16] MEDS: METOPROLOL TARTRATE 25 MG TAB PO SCH ×2 (08:04→20:17)
[2022-05-16 08:30] LABS: HCT 39.3 % (34.0-46.0); HGB 13.1 gm/dL (11.4-16.0); Hypochromasia Slight; MCH 31.8 pg (25.0-35.0); MCHC 33.4 g/dL (31.0-37.0); MCV 95.3 fL (80.0-100.0); Mean Platelet Volume 8.7; Platelet Count 222 k/uL (150-450); RBC 4.13 m/uL (3.80-5.40); RDW 15.2 % (11.5-15.5); WBC 8.6 k/uL (3.8-10.6)
[2022-05-16 08:50] LABS: Partial Thromboplastin Time 24.3 sec (22.0-30.0); Prothrombin Time 11.2 sec (9.0-12.0)
[2022-05-16 08:53] LABS: ALT 146 U/L (4-34); AST 110 U/L (14-36); African American GFR (CKD) >90 (>60 ml/min/1.73 sqM); Albumin 4.3 g/dL (3.5-5.0); Alkaline Phosphatase 205 U/L (38-126); Anion Gap 7 mmol/L; Blood Urea Nitrogen 14 mg/dL (7-17); Calcium 8.9 mg/dL (8.4-10.2); Carbon Dioxide 32 mmol/L (22-30); Chloride 103 mmol/L (98-107); Glucose 95 mg/dL (74-99); Magnesium 1.8 mg/dL (1.6-2.3); Non-African American GFR(CKD) >90 (>60 ml/min/1.73 sqM); Potassium 3.4 mmol/L (3.5-5.1); Sodium 142 mmol/L (137-145); Total Bilirubin 1.7 mg/dL (0.2-1.3); Total Protein 6.9 g/dL (6.3-8.2)
[2022-05-16] MEDS: HYDROcodone/APAP 7.5-325MG 1 EACH TAB PO PRN ×2 (10:20→20:17)
[2022-05-16] MEDS: polyethylene glycoL 3350 17 GM POWD.PACK PO SCH (10:21)
[2022-05-16] MEDS: SENNOSIDES 8.6 MG TAB PO SCH (10:21)
[2022-05-16] MEDS ORDERED: Potassium Replacement Protocol 1 EACH MISC MISCELLANE PRN (11:05)
[2022-05-16] MEDS: POTASSIUM CHLORIDE ER 20 MEQ TAB.ER PO SCH ×2 (12:32→15:19)
--- NOTE | 2022-05-16 13:26 | US ---
EXAMINATION TYPE: US abdomen complete DATE OF EXAM: 05/16/2022 COMPARISON: None CLINICAL HISTORY: Abdominal distension. going for heart surgery. TECHNIQUE: Multiple sonographic images of the abdomen are obtained. FINDINGS: EXAM MEASUREMENTS: Liver Length: 18.0 cm Gallbladder Wall: 0.2 cm CBD: 0.4 cm Spleen: 8.5 cm Right Kidney: 9.4 x 4.4 x 4.4 cm Left Kidney: 9.4 x 4.1 x 5.3 cm Pancreas: Head and tail not well visualized due to bowel gas Liver: Upper limits of normal in size, heterogenous Gallbladder: Appears large in size= 10.4 Evidence for sonographic Major's sign: neg CBD: wnl Spleen: wnl Right Kidney: Limited visualization of Inferior pole due to bowel gas Left Kidney: Limited visualization of Inferior pole due to bowel gas Upper IVC: wnl Abd Aorta: Mid and distal obscured by overlying bowel gas IMPRESSION: No evidence for acute process with limited visualization of the kidneys. No [place] nephrosis.
--- NOTE | 2022-05-16 13:47 | P.PN ---
Subjective Progress Note Date: 05/16/22 Principal diagnosis: abdominal pain She is still having severe abdominal pain. Part of it is due to constipation, had a very small BM last night but did not help with the pain. No n/v. Still with sob and cp. States that her breathing got worse lately to the point where any movement makes her sob. Objective - Vital Signs Vital signs: Vital Signs Temp 98.2 F 05/16/22 12:00 Pulse 73 05/16/22 12:00 Resp 18 05/16/22 12:00 BP 114/70 05/16/22 12:00 Pulse Ox 92 L 05/16/22 12:00 FiO2 40 05/15/22 22:00 Intake & Output 05/15/22 05/16/22 05/16/22 18:59 06:59 18:59 Intake Total 600 210 Output Total 1325 1100 Balance -725 -890 Weight 77.111 kg 81 kg Intake: Oral 600 210 Output: Urine 1325 1100 Uretheral (Crespo) 500 Other: Voiding Method Indwelling Catheter Indwelling Catheter # Bowel Movements 1 - Exam General: non toxic, no distress, appears at stated age, obese Derm: no unusual rashes/lesions, warm Head: atraumatic, normocephalic, symmetric Eyes: EOMI, no lid lag, anicteric sclera, pupils equal round reactive to light ENT: Nose and ears atraumatic Neck: No cervical lymphadenopathy, trachea midline, supple Mouth: no lip lesion, mucus membranes moist Cardiovascular: S1S2 reg, systolic murmur appreciated, positive dorsalis pedis pulse bilateral, 1+ bilateral lower extremity pitting edema Lungs: Bibasilar rales appreciated without wheezing, no accessory muscle use Abdominal: Distended with minimal tenderness, no guarding Ext: muscle strength 5 out of 5 in all 4 extremities grossly, no gross muscle atrophy, no contractures, Neuro: CN II-XI grossly intact, no gross focal neuro deficits Psych: Alert, oriented, appropriate affect - Labs CBC & Chem 7: 05/16/22 07:55 05/16/22 07:55 Labs: Abnormal Lab Results - Last 24 Hours (Table) 05/15/22 05/15/22 05/15/22 Range/Units 17:53 17:53 17:53 RDW 15.8 H (11.5-15.5) % D-Dimer 3.20 H (<0.60) mg/L FEU Potassium (3.5-5.1) mmol/L Carbon Dioxide (22-30) mmol/L Glucose 100 H (74-99) mg/dL Total Bilirubin 1.4 H (0.2-1.3) mg/dL AST 132 H (14-36) U/L ALT 158 H (4-34) U/L Alkaline Phosphatase 232 H (38-126) U/L Lipase 19 L (23-300) U/L Urine Protein (Negative) Ur Leukocyte Esterase (Negative) Amorphous Sediment (None) /hpf Hyaline Casts (0-2) /lpf Urine Mucus (None) /hpf 05/15/22 05/16/22 Range/Units 18:44 07:55 RDW (11.5-15.5) % D-Dimer (<0.60) mg/L FEU Potassium 3.4 L (3.5-5.1) mmol/L Carbon Dioxide 32 H (22-30) mmol/L Glucose (74-99) mg/dL Total Bilirubin 1.7 H (0.2-1.3) mg/dL AST 110 H (14-36) U/L ALT 146 H (4-34) U/L Alkaline Phosphatase 205 H (38-126) U/L Lipase (23-300) U/L Urine Protein 1+ H (Negative) Ur Leukocyte Esterase Trace H (Negative) Amorphous Sediment Occasional H (None) /hpf Hyaline Casts 10 H (0-2) /lpf Urine Mucus Occasional H (None) /hpf Assessment and Plan Plan: Shortness of breath with lower extremity edema, suspect secondary to CHF in setting of severe mitral valve disease -Lasix IV every 12 hourly -Intake and output -Daily weights -Cardiology and CT surgery consulted Abdominal distention, suspect multifactorial secondary to constipation with possible ascites from right heart failure -Abdominal ultrasound and CT abdomen showing no fluids, d/w reading radiologist -Laxatives ordered, miralax and senna. Abnormal LFTs -Likely due to liver congestion from right heart failure -Monitor DVT prophylaxis -Heparin subcu CODE STATUS: Full Code Discussed with: Patient Anticipated discharge date: 2-[address]: Home
[2022-05-16] MEDS ORDERED: HEPARIN SODIUM,PORCINE 5,000 UNIT/ML 1 ML VIAL SQ SCH (14:00)
--- NOTE | 2022-05-16 14:05 | P.GSCN ---
History of Present Illness Consult date: 05/16/22 Reason for Consult: History of severe mitral valve regurgitation Requesting physician: Srikanth Barahona History of present illness: This is a 61-year-old female patient who follows on an outpatient basis with Dr. Santos for her primary care and with Dr. Sims for her cardiology care. She has a past medical history significant for severe mitral valve regurgitation with thickened mitral valve with restricted leaflet mobility, mild Laurent, severe pulmonary hypertension with a RSVP of 86 mmHg, a normal left ventricular systo lic function with an ejection fraction of 50-55%, mild nonobstructive coronary artery disease involving the circumflex coronary artery, SVT, hypertension, current tobacco dependence although the patient has not smoked in 3 weeks, depression, remote history of pneumonia, and family history of coronary artery disease. The patient followed up with Dr. Lerma from cardiothoracic surgery yesterday in the office, although once Dr. Lerma saw the patient she complained of severe shortness of breath, constipation, abdominal pain and distention which she reported has been getting aggressively worse over the past 48-72 hours. She was also complaining of some increased swelling to her bilateral lower e xtremities. She denies any recent fever, chills, nausea, vomiting, diarrhea, palpitations, dizziness, chest pain/chest pressure presyncope or syncope. Due to the patient's symptoms, she was subsequently told to go directly to the emergency department here at [facility] for further evaluation and treatment recommendations. Initial laboratory results showed a WBC count of 8.2, hemoglobin 13.8, hematocrit 41.0, platelets 222, d-dimer 3.20, sodium 140, potassium 3.6, chloride 107, CO2 24, BUN 17, creatinine 0.65, glucose 100, magnesium 1.8, AST 132, ALT 158, alk phos 232, troponin less than 0.012, proBNP 3870 and lipase 19. Due to the elevated d-dimer the patient underwent a CTA of the chest which demonstrated no evidence of pulmonary embolism, a right pleural effusion andno suspicious pulmonary mass. A 12-lead EKG was completed which showed sinus tachycardia with occasional supraventricular premature complexes with a heart rate of 102 BPM. The patient was being worked up for mitral valve surgery with possible repair or replacement, as she was found on a recent 2-D echocardiogram completed on 04/23/2022 to have a normal left ventricular systolic function with an ejection fraction of 50-55%, severe pulmonary hypertension with RVSP 86 mmHg, mildly increased left atrium with severely increased left atrial volume, severe mitral regurgitation, and mild to moderate pulmonic regurgitation. She also underwent a transesophageal echocardiogram on 04/25/2022 which demonstrated thickened mitral valve with restricted leaflet mobility, moderate to severe mitral regurgitation, mild MAC, severely enlarged left atrium, mild to moderate tricuspid regurgitation, and normal left ventricular systolic function. During her examination this morning the patient reports that her breathing feels somewhat improved with medical treatment, although she is still complaining of some abdominal distention and periods of anxiousness. Subsequently due to the patient's history of severe mitral valve regurgitation, and her presenting symptoms a consult was placed to Dr. Lerma for further evaluation and treatment recommendations. Review of Systems A 14 point review of systems was completed and was negative except as mentioned in the HPI. Past Medical History Past Medical History: Chest Pain / Angina, Heart Failure, Hypertension, Pneumonia, Supraventricular Tachycardia (SVT) Additional Past Medical History / Comment(s): migraines, bronchitis, H. pylori, severe mitral valve regurgitation with thickened mitral valve with restricted leaflet mobility, severe pulmonary hypertension with an RSVP of 86 mmHg. 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 Past Anesthesia/Blood Transfusion Reactions: No Reported Reaction Past Psychological History: Depression Smoking Status: Former smoker (As quit smoking for around 3 weeks.) Past Alcohol Use History: None Reported Past Drug Use History: None Reported Additional Drug Use History / Comment(s): stopped smoking 04/2022 - Past Family History Mother Family Medical History: Coronary Artery Disease (CAD) Additional Family Medical History / Comment(s): Mother is still alive at 79 years old Father Family Medical History: Cancer, Diabetes Mellitus Additional Family Medical History / Comment(s): Father is still alive at 82 years familyi Family Medical History: Coronary Artery Disease (CAD) Additional Family Medical History / Comment(s): heart disease Medications and Allergies Home Medications Medication Instructions Recorded Confirmed Type Citalopram Hydrobromide [CeleXA] 20 mg PO BID 04/07/22 05/15/22 History HYDROcodone/APAP 7.5-325MG [[place] 1 tab PO QID PRN 04/07/22 05/15/22 History 7.5-325] clonazePAM [KlonoPIN] 0.5 mg PO BID PRN 04/07/22 05/15/22 History Aspirin 81 mg PO DAILY 90 Days #90 tab 04/27/22 05/15/22 Rx Atorvastatin [Lipitor] 20 mg PO DAILY 30 Days #30 tab 04/27/22 05/15/22 Rx Furosemide [Lasix] 20 mg PO DAILY 30 Days #30 tab 04/27/22 05/15/22 Rx Metoprolol Tartrate 25 mg PO BID 30 Days #60 tab 04/27/22 05/15/22 Rx Potassium Chloride ER [K-Dur 10] 10 meq PO DAILY 30 Days #30 tab 04/27/22 05/15/22 Rx Nicotine 14Mg/24Hr Patch [Habitrol] 1 patch TRANSDERM DAILY PRN 05/15/22 05/15/22 History Allergies Allergy/AdvReac Type Severity Reaction Status Date / Time adhesive tape AdvReac Itching Verified 05/15/22 22:13 risperidone [From Risperdal] AdvReac SPASMS, Verified 05/15/22 17:44 AGGITATION Surgical - Exam Vital Signs Temp Pulse Resp BP Pulse Ox 97.4 F L 104 H 28 H 134/75 93 L 05/15/22 16:18 05/15/22 16:18 05/15/22 16:18 05/15/22 16:18 05/15/22 16:18 CONSTITUTIONAL: Awake and alert, appears comfortable, cooperative, well- developed, well-nourished, no pain, no acute distress EYES: Pupils equal, round, reactive to light, normal ocular movement ENT: Moist mucous membranes without oral lesions present; edentulous NECK: No masses, no bruits, trachea midline RESPIRATORY: Lungs sounds diminished bilaterally, with few scattered expiratory wheezes. Respirations are symmetrical, nonlabored. Currently 4 L nasal cannula with oxygen saturation 94%. Strong cough. No chest wall deformities. No clubbing or cyanosis present CARDIOVASCULAR: S1, S2 present. Regular rate and rhythm, sinus rhythm on telemetry. Palpable peripheral pulses bilaterally. +1 to +2 edema to her lower extremities. No calf pain or tenderness noted. No significant lower extremity varicosities noted. GASTROINTESTINAL: Abdomen soft, nontender, and distended without masses or organomegaly noted. There is no rebound or guarding present. Active bowel sounds present 4 quadrants. GENITOURINARY: Deferred INTEGUMENTARY: Skin is warm and dry, no clubbing or cyanosis is present. MUSKULOSKELETAL: Able to move all extremities, strength equal bilaterally, normal posture. PSYCHIATRIC: Alert and oriented to person place and time, appropriate affect, intact judgment and insight. Episodes of anxiousness. Results - Labs 05/27/22 05:07 05/27/22 05:07 Abnormal Lab Results - Last 24 Hours (Table) 05/15/22 05/15/22 05/15/22 Range/Units 17:53 17:53 17:53 RDW 15.8 H (11.5-15.5) % D-Dimer 3.20 H (<0.60) mg/L FEU Potassium (3.5-5.1) mmol/L Carbon Dioxide (22-30) mmol/L Glucose 100 H (74-99) mg/dL Total Bilirubin 1.4 H (0.2-1.3) mg/dL AST 132 H (14-36) U/L ALT 158 H (4-34) U/L Alkaline Phosphatase 232 H (38-126) U/L Lipase 19 L (23-300) U/L Urine Protein (Negative) Ur Leukocyte Esterase (Negative) Amorphous Sediment (None) /hpf Hyaline Casts (0-2) /lpf Urine Mucus (None) /hpf 05/15/22 05/16/22 Range/Units 18:44 07:55 RDW (11.5-15.5) % D-Dimer (<0.60) mg/L FEU Potassium 3.4 L (3.5-5.1) mmol/L Carbon Dioxide 32 H (22-30) mmol/L Glucose (74-99) mg/dL Total Bilirubin 1.7 H (0.2-1.3) mg/dL AST 110 H (14-36) U/L ALT 146 H (4-34) U/L Alkaline Phosphatase 205 H (38-126) U/L Lipase (23-300) U/L Urine Protein 1+ H (Negative) Ur Leukocyte Esterase Trace H (Negative) Amorphous Sediment Occasional H (None) /hpf Hyaline Casts 10 H (0-2) /lpf Urine Mucus Occasional H (None) /hpf Diabetes panel 05/15/22 05/16/22 Range/Units 17:53 07:55 Sodium 140 142 (137-145) mmol/L Potassium 3.6 3.4 L (3.5-5.1) mmol/L Chloride 107 103 (98-107) mmol/L Carbon Dioxide 24 32 H (22-30) mmol/L BUN 17 14 (7-17) mg/dL Creatinine 0.65 0.69 (0.52-1.04) mg/dL Glucose 100 H 95 (74-99) mg/dL Calcium 9.4 8.9 (8.4-10.2) mg/dL AST 132 H 110 H (14-36) U/L ALT 158 H 146 H (4-34) U/L Alkaline Phosphatase 232 H 205 H (38-126) U/L Total Protein 7.4 6.9 (6.3-8.2) g/dL Albumin 4.6 4.3 (3.5-5.0) g/dL Calcium panel 05/15/22 05/16/22 Range/Units 17:53 07:55 Calcium 9.4 8.9 (8.4-10.2) mg/dL Albumin 4.6 4.3 (3.5-5.0) g/dL Pituitary panel 05/15/22 05/16/22 Range/Units 17:53 07:55 Sodium 140 142 (137-145) mmol/L Potassium 3.6 3.4 L (3.5-5.1) mmol/L Chloride 107 103 (98-107) mmol/L Carbon Dioxide 24 32 H (22-30) mmol/L BUN 17 14 (7-17) mg/dL Creatinine 0.65 0.69 (0.52-1.04) mg/dL Glucose 100 H 95 (74-99) mg/dL Calcium 9.4 8.9 (8.4-10.2) mg/dL Adrenal panel 05/15/22 05/16/22 Range/Units 17:53 07:55 Sodium 140 142 (137-145) mmol/L Potassium 3.6 3.4 L (3.5-5.1) mmol/L Chloride 107 103 (98-107) mmol/L Carbon Dioxide 24 32 H (22-30) mmol/L BUN 17 14 (7-17) mg/dL Creatinine 0.65 0.69 (0.52-1.04) mg/dL Glucose 100 H 95 (74-99) mg/dL Calcium 9.4 8.9 (8.4-10.2) mg/dL Total Bilirubin 1.4 H 1.7 H (0.2-1.3) mg/dL AST 132 H 110 H (14-36) U/L ALT 158 H 146 H (4-34) U/L Alkaline Phosphatase 232 H 205 H (38-126) U/L Total Protein 7.4 6.9 (6.3-8.2) g/dL Albumin 4.6 4.3 (3.5-5.0) g/dL - Imaging CT scan - chest: report reviewed, image reviewed US - kidney/bladder: image reviewed Assessment and Plan Assessment: 1. Severe mitral valve regurgitation with thickened mitral valve with restricted leaflet mobility 2. Severe pulmonary hypertension with a RSVP 86 mmHg 3. Shortness of breath with lower extremity edema possibly secondary to severe mitral valve regurgitation or congestive heart failure 4. Mild nonobstructive coronary artery disease involving the circumflex coronary artery 5. Abdominal distention, likely secondary to constipation 6. Elevated liver enzymes, likely secondary to congestion from right heart failure 7. History of hypertension 8. History of tobacco dependence, has not smoked for 3 weeks 9. History of depression 10. Remote history of pneumonia 11. Family history of coronary artery disease Plan: The patient was seen and examined at her bedside on the third floor cardiac stepdown unit. Her chart and diagnostics were reviewed. She was also seen and evaluated by Dr. Chelo Montaño from cardiothoracic surgery. At this time we recommend optimizing her medical management with aspirin, statin, beta vince and Lasix. When she is medically optimized it is been discussed that she will undergo mitral valve replacement surgery. Risks and benefits of the surgery have been discussed with the patient, and knowing and understanding the risks the patient does wish to pursue with the surgical option. Encourage use of incentive spirometry 10 times every hour while awake. Preoperative teaching has been reinforced with the patient. Increase activity as tolerated. Consult pulmonology for preoperative pulmonary management. More recommendations to follow based on patient's clinical course. Thank you for this consult and we look for to working with you in the care of this patient. I have personally seen and examined the patient, performed the documentation and the assessment and plan as written. 30 minutes spent on the visit . Xander OLIVER Patient was seen and examined and all the diagnostic testing reviewed. 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 Patient needs mitral valve replacement tricuspid valve repair with moderate risks. This benefits and alternative were discussed with mesh understood them and agreed to proceed time spent with the patient 45 minutes. CHELO MONTAÑO MD Time with Patient: Greater than 30
--- NOTE | 2022-05-16 14:36 | P.CRDCN ---
History of Present Illness History of present illness: HISTORY OF PRESENTING ILLNESS Patient is a pleasant 61-year-old female with history of severe mitral regurgitation, moderate to severe mitral stenosis, mild mitral annular calcification, severe pulmonary hypertension with RVSP 86, diastolic heart failure, mild nonobstructive coronary artery disease, SVT, hypertension, tobacco abuse, depression. She follows with Dr. Sims. She has been worked up for her mitral stenosis as well as regurgitation and had recent heart catheterization which showed mild disease and right heart catheterization which showed severe mitral stenosis and elevated pressures. DENISE demonstrated thickened mitral valve with restricted leaflet movement severely dilated left atrium. She was seen at cardiothoracic surgery office however still having significant dyspnea and therefore recommended to be evaluated in the hospital. She was started on Lasix and admits to feeling somewhat better after receiving IV Lasix. She has been having frequent chest pain with minimal exertion. EKG shows sinus rhythm, normal axis, nonspecific minimal ST depressions. Blood work shows d-dimer 3.2, creatinine 0.6, proBNP 3800, troponin normal 1. AST 132, ALT 158, total bilirubin 1.4. Chest CTA showed no PE. REVIEW OF SYSTEMS At the time of my exam: CONSTITUTIONAL: Denies fever or chills. CARDIOVASCULAR: +chest pain, +shortness of breath, no orthopnea, PND or palpita tions. RESPIRATORY: Denies cough. GASTROINTESTINAL: Denies abdominal pain, diarrhea, constipation, nausea or vomiting. MUSCULOSKELETAL: Denies myalgias. NEUROLOGIC: Denies numbness, tingling or weakness. ENDOCRINE: Denies fatigue, weight change, polydipsia or polyurina. GENITOURINARY: Denies burning, hematuria or urgency with micturation. HEMATOLOGIC: Denies history of anemia or bleeding. PHYSICAL EXAMINATION Vital signs reviewed. CONSTITUTIONAL: No apparent distress. HEENT: Head is normocephalic. Pupils are equal, round. Sclerae anicteric. Mucous membranes of the mouth are moist. No JVD. No carotid bruit. CHEST EXAMINATION: +Crackles at bases HEART EXAMINATION: Regular rate and rhythm. S1, S2 heard. +3/6 systolic murmur, no gallops or rub. ABDOMEN: Soft, nontender. Positive bowel sounds. EXTREMITIES: 2+ peripheral pulses, no lower extremity edema and no calf tenderness. NEUROLOGIC EXAMINATION: Patient is awake, alert and oriented x3. ASSESSMENT 1. Acute on chronic diastolic heart failure 2. Severe mitral regurgitation 3. Moderate to severe mitral stenosis 4. Pulmonary hypertension RVSP 86 related to left-sided heart failure 5. Mild nonobstructive CAD by heart catheterization 6. Elevated liver enzymes likely related to hepatic congestion 7. Hypertension 8. History of tobacco abuse PLAN Continue with current diuretics. Patient feeling somewhat better with diuresis. Monitor creatinine closely. Further recommendations to follow. Past Medical History Past Medical History: Chest Pain / Angina, Heart Failure, Hypertension, Pneumonia, Supraventricular Tachycardia (SVT) Additional Past Medical History / Comment(s): migraines, bronchitis, H. pylori, severe mitral valve regurgitation with thickened mitral valve with restricted leaflet mobility, severe pulmonary hypertension with an RSVP of 86 mmHg. 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 Past Anesthesia/Blood Transfusion Reactions: No Reported Reaction Past Psychological History: Depression Smoking Status: Former smoker (As quit smoking for around 3 weeks.) Past Alcohol Use History: None Reported Past Drug Use History: None Reported Additional Drug Use History / Comment(s): stopped smoking 04/2022 - Past Family History Mother Family Medical History: Coronary Artery Disease (CAD) Additional Family Medical History / Comment(s): Mother is still alive at 79 years old Father Family Medical History: Cancer, Diabetes Mellitus Additional Family Medical History / Comment(s): Father is still alive at 82 years familyi Family Medical History: Coronary Artery Disease (CAD) Additional Family Medical History / Comment(s): heart disease Medications and Allergies Home Medications Medication Instructions Recorded Confirmed Type Citalopram Hydrobromide [CeleXA] 20 mg PO BID 04/07/22 05/15/22 History HYDROcodone/APAP 7.5-325MG [[place] 1 tab PO QID PRN 04/07/22 05/15/22 History 7.5-325] clonazePAM [KlonoPIN] 0.5 mg PO BID PRN 04/07/22 05/15/22 History Aspirin 81 mg PO DAILY 90 Days #90 tab 04/27/22 05/15/22 Rx Atorvastatin [Lipitor] 20 mg PO DAILY 30 Days #30 tab 04/27/22 05/15/22 Rx Furosemide [Lasix] 20 mg PO DAILY 30 Days #30 tab 04/27/22 05/15/22 Rx Metoprolol Tartrate 25 mg PO BID 30 Days #60 tab 04/27/22 05/15/22 Rx Potassium Chloride ER [K-Dur 10] 10 meq PO DAILY 30 Days #30 tab 04/27/22 05/15/22 Rx Nicotine 14Mg/24Hr Patch [Habitrol] 1 patch TRANSDERM DAILY PRN 05/15/22 05/15/22 History Allergies Allergy/AdvReac Type Severity Reaction Status Date / Time adhesive tape AdvReac Itching Verified 05/15/22 22:13 risperidone [From Risperdal] AdvReac SPASMS, Verified 05/15/22 17:44 AGGITATION Physical Exam Vitals: Vital Signs Temp Pulse Pulse Resp BP BP Pulse Ox 05/16/22 12:00 98.2 F 73 18 114/70 92 L 05/16/22 08:00 97.8 F 89 20 125/76 96 05/16/22 07:28 97 05/16/22 04:00 98.1 F 101 H 22 144/83 93 L 05/16/22 00:00 98.5 F 102 H 20 135/68 94 L 05/15/22 22:05 28 H 97 05/15/22 22:00 96.6 F L 98 35 H 152/74 98 05/15/22 20:59 102 H 22 104/89 94 L 05/15/22 20:14 100 22 194/97 97 05/15/22 18:56 05/15/22 17:35 05/15/22 16:18 97.4 F L 104 H 28 H 134/75 93 L FiO2 05/16/22 12:00 05/16/22 08:00 05/16/22 07:28 05/16/22 04:00 05/16/22 00:00 05/15/22 22:05 05/15/22 22:00 40 05/15/22 20:59 05/15/22 20:14 05/15/22 18:56 40 05/15/22 17:35 40 05/15/22 16:18 Intake and Output 05/15/22 05/16/22 05/16/22 22:59 06:59 14:59 Intake Total 120 480 210 Output Total 077 529 8101 Balance -530 -195 -890 Intake: Oral 120 480 210 Output: Urine 500 446 0168 Uretheral (Crespo) 500 Other: Voiding Method Indwelling Catheter Indwelling Catheter Indwelling Catheter # Bowel Movements 1 Weight 77.111 kg 81 kg Results 05/16/22 07:55 05/16/22 07:55 Cardiac Enzymes 05/15/22 05/15/22 05/16/22 Range/Units 17:53 17:53 07:55 AST 132 H 110 H (14-36) U/L Troponin I <0.012 (0.000-0.034) ng/mL Coagulation 05/16/22 Range/Units 07:55 PT 11.2 (9.0-12.0) sec APTT 24.3 (22.0-30.0) sec CBC 05/15/22 05/16/22 Range/Units 17:53 07:55 WBC 8.2 8.6 (3.8-10.6) k/uL RBC 4.36 4.13 (3.80-5.40) m/uL Hgb 13.8 13.1 (11.4-16.0) gm/dL Hct 41.0 39.3 (34.0-46.0) % Plt Count 222 222 (150-450) k/uL Comprehensive Metabolic Panel 05/15/22 05/16/22 Range/Units 17:53 07:55 Sodium 140 142 (137-145) mmol/L Potassium 3.6 3.4 L (3.5-5.1) mmol/L Chloride 107 103 (98-107) mmol/L Carbon Dioxide 24 32 H (22-30) mmol/L BUN 17 14 (7-17) mg/dL Creatinine 0.65 0.69 (0.52-1.04) mg/dL Glucose 100 H 95 (74-99) mg/dL Calcium 9.4 8.9 (8.4-10.2) mg/dL AST 132 H 110 H (14-36) U/L ALT 158 H 146 H (4-34) U/L Alkaline Phosphatase 232 H 205 H (38-126) U/L Total Protein 7.4 6.9 (6.3-8.2) g/dL Albumin 4.6 4.3 (3.5-5.0) g/dL Current Medications Generic Name Dose Route Start Last Admin Trade Name Freq PRN Reason Stop Dose Admin Hydrocodone Bitart/Acetaminophen 1 each 05/16/22 09:56 05/16/22 10:20 Hydrocodone/Apap 7.5-325mg 1 Each Tab PO 1 each Q6HR PRN Administration Pain Aspirin 81 mg 05/16/22 09:00 05/16/22 08:05 Aspirin 81 Mg PO Not Given DAILY VERONICA Atorvastatin Calcium 20 mg 05/16/22 09:00 05/16/22 08:05 Atorvastatin 20 Mg Tab PO Not Given DAILY VERONICA Citalopram Hydrobromide 20 mg 05/16/22 09:00 05/16/22 08:04 Citalopram Hydrobromide 20 Mg Tab PO 20 mg BID VERONICA Administration Clonazepam 0.5 mg 05/15/22 23:43 Clonazepam 0.5 Mg Tab PO BID PRN Anxiety Furosemide 40 mg 05/16/22 09:00 05/16/22 08:04 Furosemide 10 Mg/Ml 4 Ml Vial IV 40 mg Q12HR VERONICA Administration Heparin Sodium (Porcine) 5,000 unit 05/16/22 14:00 Heparin Sodium,Porcine/Pf 5,000 Unit/0.5 Ml Syringe SQ Q8H VERONICA Metoprolol Tartrate 25 mg 05/16/22 09:00 05/16/22 08:04 Metoprolol Tartrate 25 Mg Tab PO 25 mg BID VERONICA Administration Miscellaneous Information 1 each 05/16/22 11:05 Potassium Replacement Protocol 1 Each Misc MISCELLANE DAILY PRN Per Protocol Protocol Naloxone HCl 0.2 mg 05/15/22 20:17 Naloxone 0.4 Mg/Ml 1 Ml Vial IV Q2M PRN Opioid Reversal Nicotine 1 patch 05/15/22 23:43 Nicotine 14mg/24hr Patch TRANSDERM DAILY PRN SMOKING CESSATION Polyethylene Glycol 17 gm 05/16/22 10:00 05/16/22 10:21 Polyethylene Glycol 3350 17 Gm Powd.Pack PO 17 gm DAILY VERONICA Administration Senna 8.6 mg 05/16/22 10:00 05/16/22 10:21 Sennosides 8.6 Mg Tab PO 8.6 mg DAILY VERONICA Administration Intake and Output 05/15/22 05/16/22 05/16/22 22:59 06:59 14:59 Intake Total 120 480 210 Output Total 571 848 8943 [facility] -530 -195 -890 Intake: Oral 120 480 210 Output: Urine 755 236 6145 Uretheral (Crespo) 500 Other: Voiding Method Indwelling Catheter Indwelling Catheter Indwelling Catheter # Bowel Movements 1 Weight 77.111 kg 81 kg 05/16/22 07:55 05/16/22 07:55
[2022-05-16] MEDS: HEPARIN SODIUM,PORCINE/PF 5,000 UNIT/0.5 ML SYRINGE SQ SCH ×2 (15:21→20:26)
[2022-05-17] MEDS: HEPARIN SODIUM,PORCINE/PF 5,000 UNIT/0.5 ML SYRINGE SQ SCH ×3 (05:43→19:59)
--- NOTE | 2022-05-17 07:10 | XR ---
EXAMINATION TYPE: XR chest 1V portable DATE OF EXAM: 05/17/2022 6:56 AM COMPARISON: Chest radiographs from 04/22/2022, CT 05/15/2022 TECHNIQUE: XR chest 1V portable Portable AP radiograph of the chest. CLINICAL INDICATION:Female, 61 years old with history of Shortness of breath; FINDINGS: Lungs/Pleura: Prominent interstitial lung markings are seen scattered throughout the lungs. No eviden ce of focal consolidation, pneumothorax. Small right pleural effusion Pulmonary vascularity: Pulmonary vascular congestion. Heart/mediastinum: Cardiomediastinal silhouette is prominent in size. Musculoskeletal: No acute osseous pathology. IMPRESSION : Pulmonary vascular congestion, trace right pleural effusion and cardiomegaly correlate for congestive heart failure with BNP.
[2022-05-17 08:58] LABS: Basophils % (A) 0 %; Eosinophils # (A) 0.2 k/uL (0-0.7); Eosinophils % (A) 3 %; HGB 13.1 gm/dL (11.4-16.0); Hypochromasia Slight; Lymphocytes # (A) 1.2 k/uL (1.0-4.8); Lymphocytes % (A) 18 %; MCH 31.6 pg (25.0-35.0); MCHC 32.8 g/dL (31.0-37.0); MCV 96.4 fL (80.0-100.0); Mean Platelet Volume 8.7; Monocytes # (A) 0.6 k/uL (0-1.0); Monocytes % (A) 9 %; Neutrophils # (A) 4.5 k/uL (1.3-7.7); Neutrophils % (A) 69 %; Platelet Count 220 k/uL (150-450); RBC 4.15 m/uL (3.80-5.40); RDW 15.2 % (11.5-15.5); WBC 6.5 k/uL (3.8-10.6)
[2022-05-17 09:12] LABS: ALT 113 U/L (4-34); AST 70 U/L (14-36); African American GFR (CKD) >90 (>60 ml/min/1.73 sqM); Alkaline Phosphatase 197 U/L (38-126); Anion Gap 6 mmol/L; Blood Urea Nitrogen 15 mg/dL (7-17); Calcium 8.6 mg/dL (8.4-10.2); Carbon Dioxide 35 mmol/L (22-30); Chloride 99 mmol/L (98-107); Glucose 112 mg/dL (74-99); Magnesium 1.8 mg/dL (1.6-2.3); Non-African American GFR(CKD) >90 (>60 ml/min/1.73 sqM); Potassium 3.5 mmol/L (3.5-5.1); Sodium 140 mmol/L (137-145); Total Bilirubin 1.2 mg/dL (0.2-1.3); Total Protein 6.4 g/dL (6.3-8.2)
[2022-05-17] MEDS ORDERED: POTASSIUM CHLORIDE ER 20 MEQ TAB.ER PO STA (09:54)
--- NOTE | 2022-05-17 10:26 | P.PN ---
Subjective Progress Note Date: 05/17/22 Principal diagnosis: abdominal pain States that her breathing feels better today, however she is still constipated was only able to have small BM yesterday. Still with abdominal discomfort. Objective - Vital Signs Vital signs: Vital Signs Temp 97.8 F 05/17/22 04:00 Pulse 79 05/17/22 04:00 Resp 18 05/17/22 04:00 BP 121/71 05/17/22 04:00 Pulse Ox 97 05/17/22 04:00 FiO2 40 05/15/22 22:00 Intake & Output 05/16/22 05/17/22 05/17/22 18:59 06:59 18:59 Intake Total 210 10 Output Total 1300 1025 Balance -1090 -1015 Weight 80.5 kg Intake: IV 10 0.9 10 Oral 210 Output: Urine 1300 1025 Uretheral (Crespo) 500 Other: Voiding Method Indwelling Catheter Indwelling Catheter # Bowel Movements 1 - Exam General: non toxic, no distress, appears at stated age, obese Derm: no unusual rashes/lesions, warm Head: atraumatic, normocephalic, symmetric Eyes: EOMI, no lid lag, anicteric sclera, pupils equal round reactive to light ENT: Nose and ears atraumatic Neck: No cervical lymphadenopathy, trachea midline, supple Mouth: no lip lesion, mucus membranes moist Cardiovascular: S1S2 reg, systolic murmur appreciated, positive dorsalis pedis pulse bilateral, 1+ bilateral lower extremity pitting edema Lungs: Bibasilar rales appreciated without wheezing, no accessory muscle use Abdominal: Distended with minimal tenderness, no guarding Ext: muscle strength 5 out of 5 in all 4 extremities grossly, no gross muscle atrophy, no contractures, Neuro: CN II-XI grossly intact, no gross focal neuro deficits Psych: Alert, oriented, appropriate affect - Labs CBC & Chem 7: 05/17/22 08:29 05/17/22 08:29 Labs: Abnormal Lab Results - Last 24 Hours (Table) 05/17/22 Range/Units 08:29 Carbon Dioxide 35 H (22-30) mmol/L Glucose 112 H (74-99) mg/dL AST 70 H (14-36) U/L ALT 113 H (4-34) U/L Alkaline Phosphatase 197 H (38-126) U/L Assessment and Plan Plan: Shortness of breath with lower extremity edema, suspect secondary to CHF in setting of severe mitral valve disease -Lasix IV every 12 hourly -Intake and output -Daily weights -Cardiology and CT surgery consulted--planning mitral valve surgery once medically optimized. Abdominal distention, suspect multifactorial secondary to constipation with possible ascites from right heart failure -Abdominal ultrasound and CT abdomen showing no fluids, d/w reading radiologist -Laxatives ordered, miralax and senna. Add lactulose. Abnormal LFTs -Likely due to liver congestion from right heart failure -Monitor DVT prophylaxis -Heparin subcu CODE STATUS: Full Code Discussed with: Patient Anticipated discharge date: once surgery performed depending on the post operative course Anticipated discharge place: Home
[2022-05-17] MEDS: SENNOSIDES 8.6 MG TAB PO SCH (10:27)
[2022-05-17] MEDS: ATORVASTATIN 20 MG TAB PO SCH (10:28)
[2022-05-17] MEDS: FUROSEMIDE 10 MG/ML 4 ML VIAL IV SCH ×2 (10:28→20:25)
[2022-05-17] MEDS: CITALOPRAM HYDROBROMIDE 20 MG TAB PO SCH ×2 (10:28→20:25)
[2022-05-17] MEDS: METOPROLOL TARTRATE 25 MG TAB PO SCH ×2 (10:28→20:25)
[2022-05-17] MEDS: polyethylene glycoL 3350 17 GM POWD.PACK PO SCH (10:28)
[2022-05-17] MEDS: MAGNESIUM SULFATE-D5W PMX 1 GM in DEXTROSE/WATER 1 100ML.BAG IVPB SCH ×2 (10:29→12:23)
[2022-05-17] MEDS: ASPIRIN 81 MG PO SCH ×2 (10:29→10:31)
[2022-05-17] MEDS: HYDROcodone/APAP 7.5-325MG 1 EACH TAB PO PRN ×3 (11:01→23:18)
[2022-05-17] MEDS ORDERED: bisacodyL 10 MG SUPP RECTAL PRN (13:01)
--- NOTE | 2022-05-17 13:18 | P.PN ---
Subjective Progress Note Date: 05/17/22 Principal diagnosis: Severe mitral valve regurgitation, moderate to severe mitral valve stenosis, elevated liver enzymes likely rate related to hepatic congestion, acute on chronic diastolic congestive heart failure and constipation. Past medical history significant for pulmonary hypertension with a recent RVSP 86 mmHg, mild nonobstructive coronary artery disease by heart catheterization to her circumflex coronary artery, hypertension, chronic tobacco abuse although has not smoked in 3 weeks, COPD with a previous pulmonary function test showing an FEV1 of 42% of predicted value with a base volume of 1.04 L, history of SVT, remote history of pneumonia, history of depression and family history of coronary artery disease. The patient was seen and examined in follow-up today 05/17/2022 at her bedside on the cardiac stepdown unit. Currently she is sitting up to the bedside edge, is awake, alert, oriented 3 and is in no acute apparent distress. She reports her breathing feels much improved today with her oxygen saturations 92% on room air and she is achieving 1000 mL on her incentive spirometry with encouragement. Remote telemetry showing normal sinus rhythm heart rate 79 BPM. Denies any complaints of shortness of breath or pain at this time although continues to complain of some abdominal distention and constipation. Denies any nausea or vomiting. She has been afebrile the last 24 hours. Laboratory results this morning show a WBC count is 6.5, hemoglobin 13.1, hematocrit 40.0, platelets 220, sodium 140, potassium 3.5, BUN 15 and creatinine 0.69. She remains on Lasix 40 mg IV twice a day with good diuresis. Crespo catheter remains in place for accurate I's and O's. Chest x-ray were reviewed. Objective - Vital Signs Vital signs: Vital Signs Temp 98.3 F 05/17/22 10:25 Pulse 79 05/17/22 10:25 Resp 20 05/17/22 10:25 BP 103/64 05/17/22 10:25 Pulse Ox 91 L 05/17/22 10:25 FiO2 40 05/15/22 22:00 Intake & Output 05/16/22 05/17/22 05/17/22 18:59 06:59 18:59 Intake Total 210 10 Output Total 1300 1025 Balance -1090 -1015 Weight 80.5 kg Intake: IV 10 0.9 10 Oral 210 Output: Urine 1300 1025 Uretheral (Crespo) 500 Other: Voiding Method Indwelling Catheter Indwelling Catheter Indwelling Catheter # Bowel Movements 1 - Exam CONSTITUTIONAL: Sitting up to the bedside edge on the cardiac stepdown unit, appears comfortable, cooperative, no apparent acute distress. HEENT: Neck is supple, no JVD, no lymphadenopathy. RESPIRATORY: Lungs sounds essentially clear throughout, few scattered expiratory wheezes and crackles to her bilateral bases. Diminished to her right lower lobe. Respirations are symmetrical and nonlabored. Currently on room air with oxygen saturations 92%. Able to achieve 1000 mL on their incentive spirometry. Strong cough. CARDIOVASCULAR: Regular rhythm and rate. S1 and S2 present, negative for S3, gallop or murmur. +1 edema to his bilateral lower extremities. No calf pain or tenderness noted. GASTROINTESTINAL: Abdomen soft, nontender, slightly distended. Active bowel sounds present 4 quadrants. Tolerating diet. Passing flatus. No guarding or rigidity. Small bowel movement yesterday 05/16/2022. GENITOURINARY: Crespo present draining clear, yellow urine. INTEGUMENTARY: Skin is warm and dry with no evidence of clubbing or cyanosis. NEUROLOGIC: Cranial nerves II through XII intact. No focal deficits. MUSKULOSKELETAL: Able to move all extremities, strength equal bilaterally. PSYCHIATRIC: Alert and oriented to person place and time, appropriate affect, intact judgment and insight. - Allied health notes Allied health notes reviewed: nursing - Labs CBC & Chem 7: 05/17/22 08:29 05/17/22 08:29 Labs: Abnormal Lab Results - Last 24 Hours (Table) 05/17/22 Range/Units 08:29 Carbon Dioxide 35 H (22-30) mmol/L Glucose 112 H (74-99) mg/dL AST 70 H (14-36) U/L ALT 113 H (4-34) U/L Alkaline Phosphatase 197 H (38-126) U/L - Imaging and Cardiology Chest x-ray: report reviewed, image reviewed Assessment and Plan Assessment: 1. Severe mitral valve regurgitation with thickened mitral valve with restricted leaflet mobility 2. Severe pulmonary hypertension with a RSVP 86 mmHg 3. Acute on chronic diastolic heart failure 4. Shortness of breath with lower extremity edema possibly secondary to severe mitral valve regurgitation or congestive heart failure 5. Mild nonobstructive coronary artery disease involving the circumflex coronary artery 6. Abdominal distention, likely secondary to constipation 7. Elevated liver enzymes, likely secondary to congestion from right heart failure 8. History of hypertension 9. COPD with a preoperative FEV1 42% of predicted value with a base volume of 1.04 L 10. History of tobacco dependence, has not smoked for 3 weeks 11. History of depression 12. Remote history of pneumonia 13. Family history of coronary artery disease Plan: 1. Continue to optimize medical management with aspirin, statin and beta vince. 2. Diuretic management per primary care and cardiology recommendations. 3. Discontinue Crespo catheter. Continue to record strict inaccurate I's and O's. 4. Dulcolax suppository 10 mg when necessary complaints of constipation. 5. Mupirocin 2% ointment twice a day to each Nare. 6. Encourage use of her incentive spirometry 10 times every hour while awake. 7. Encourage activity, out of bed for all meals. 8. Continue to monitor daily labs and chest x-rays. We will add proBNP level to tomorrow morning's labs. 9. Dr. Lerma discussed with the patient in regards to mitral valve surgery, and she will be scheduled sometime early next week for mitral valve surgery. Timing of the surgery to follow. 10. More recommendations to follow based on patient's clinical course. Time with Patient: Greater than 30
[2022-05-17] MEDS: MUPIROCIN 2% OINT 22 GM TUBE TOPICAL SCH ×3 (13:33→20:25)
[2022-05-17] MEDS: LACTULOSE 20 GM/30 ML CUP PO SCH (13:56)
--- NOTE | 2022-05-17 15:51 | P.PN ---
Subjective HISTORY OF PRESENTING ILLNESS Patient is a pleasant 61-year-old female with history of severe mitral regurgitation, moderate to severe mitral stenosis, mild mitral annular calcification, severe pulmonary hypertension with RVSP 86, diastolic heart f ailure, mild nonobstructive coronary artery disease, SVT, hypertension, tobacco abuse, depression. She follows with Dr. Sims. She has been worked up for her mitral stenosis as well as regurgitation and had recent heart catheterization which showed mild disease and right heart catheterization which showed severe mitral stenosis and elevated pressures. DENISE demonstrated thickened mitral valve with restricted leaflet movement severely dilated left atrium. She was seen at cardiothoracic surgery office however still having significant dyspnea and therefore recommended to be evaluated in the hospital. She was started on Lasix and admits to feeling somewhat better after receiving IV Lasix. She has been having frequent chest pain with minimal exertion. EKG shows sinus rhythm, normal axis, nonspecific minimal ST depressions. Blood work shows d-dimer 3.2, creatinine 0.6, proBNP 3800, troponin normal 1. AST 132, ALT 158, total bilirubin 1.4. Chest CTA showed no PE. 05/17 Patient seen and examined. Patient denies any chest pain or pressure. States her breathing is somewhat better. Has been diuresing well. States she did go for a brief walk and starting to feel somewhat better. PHYSICAL EXAMINATION Vital signs reviewed. CONSTITUTIONAL: No apparent distress. HEENT: Head is normocephalic. Pupils are equal, round. Sclerae anicteric. Mucous membranes of the mouth are moist. No JVD. No carotid bruit. CHEST EXAMINATION: +Crackles at bases HEART EXAMINATION: Regular rate and rhythm. S1, S2 heard. +3/6 systolic murmur, no gallops or rub. ABDOMEN: Soft, nontender. Positive bowel sounds. EXTREMITIES: 2+ peripheral pulses, no lower extremity edema and no calf tenderness. NEUROLOGIC EXAMINATION: Patient is awake, alert and oriented x3. ASSESSMENT 1. Acute on chronic diastolic heart failure 2. Severe mitral regurgitation 3. Moderate to severe mitral stenosis 4. Pulmonary hypertension RVSP 86 related to left-sided heart failure 5. Mild nonobstructive CAD by heart catheterization 6. Elevated liver enzymes likely related to hepatic congestion 7. Hypertension 8. History of tobacco abuse PLAN Continue with current diuretics, appears to be improving. Cardiothoracic recs appreciated Monitor creatinine closely. Further recommendations to follow. Objective - Vital Signs Vital signs: Vital Signs Temp 98.1 F 05/17/22 13:32 Pulse 78 05/17/22 13:32 Resp 19 05/17/22 13:32 BP 117/59 05/17/22 13:32 Pulse Ox 95 05/17/22 13:32 FiO2 40 05/15/22 22:00 Intake & Output 05/16/22 05/17/22 05/17/22 18:59 06:59 18:59 Intake Total 210 10 Output Total 1300 1025 1500 Balance -1090 -1015 -1500 Weight 80.5 kg Intake: IV 10 0.9 10 Oral 210 Output: Urine 1300 1025 1500 Uretheral (Crespo) 500 Other: Voiding Method Indwelling Catheter Indwelling Catheter Indwelling Catheter # Bowel Movements 1 1 - Labs CBC & Chem 7: 05/17/22 08:29 05/17/22 08:29 Labs: Abnormal Lab Results - Last 24 Hours (Table) 05/17/22 Range/Units 08:29 Carbon Dioxide 35 H (22-30) mmol/L Glucose 112 H (74-99) mg/dL AST 70 H (14-36) U/L ALT 113 H (4-34) U/L Alkaline Phosphatase 197 H (38-126) U/L
--- NOTE | 2022-05-17 16:10 | P.CNPUL ---
History of Present Illness Consult date: 05/17/22 Reason for consult: dyspnea History of present illness: I am seeing this 61-year-old female patient for a preoperative pulmonary evaluation as the patient is being considered for mitral valve surgery. The patient is known to have abnormal heart disease and the patient has severe mitral valve regurgitation with secondary pulmonary hypertension in the pulmonary artery pressures of 86 based on a most his echocardiogram. The patient has a preserved LV function with an ejection fraction of 50-55% and the patient has mild nonocclusive coronary artery disease. She has history of SVT, hypertension and she is a chronic smoker who quit smoking approximately 3 weeks ago. The patient presents arousal because of worsening shortness of breath and third spacing and increased lower oximetry edema along with abdominal distention and fluid overload. A chest x-ray was also consistent with CHF and a CAT scan of the chest also showed a right sided for effusion. No evidence of any lung tumors or masses. The patient had an echocardiogram on 04/23/2022 that showed an LV function that was in the order of 50-55% and severe pulmonary hypertension. The patient had severe mitral regurgitation. The patient is currently doing better. The patient is being diuresed with IV Lasix 40 mg IV every 12 hours. His admitted significant improvement in oxygenation, respiratory status and volume status. The plan is to proceed with cardiac surgery probably early next week. No chest pain. No other complaints otherwise for now. She does not use oxygen at home. She does not use any form of respiratory medications on outpatient basis. The patient is being followed a bicarbonate thoracic surgery and cardiology. A bedside spirometry needs to be done. The chest x-ray from today showed pulmonary vessel congestion and trace itself pleural effusion along with cardiomegaly. The patient has a adequate baseline performance of functional status. Review of Systems All systems: negative Eyes: denies as per HPI, denies blurred vision, denies bulging eye, denies decreased vision, denies diplopia, denies discharge, denies dry eye, denies irritation, denies itching, denies pain, denies photophobia, denies loss of peripheral vision, denies loss of vision, denies tunnel vision/blind spots Ears: deny: decreased hearing, ear discharge, earache, tinnitus Ears, nose, mouth and throat: Reports as per HPI Breasts: absent: as per HPI, change in shape, gynecomastia, masses, nipple discharge, pain, skin changes, swelling Cardiovascular: Reports decreased exercise tolerance, Reports dyspnea on exertion, Reports edema, Reports rapid heart beat, Reports shortness of breath Respiratory: Reports dyspnea Gastrointestinal: Reports as per HPI Genitourinary: Reports as per HPI Menstruation: Reports as per HPI Musculoskeletal: Reports as per HPI Musculoskeletal: bilateral: ankle swelling, absent: ankle pain, ankle stiffness Integumentary: Reports as per HPI Neurological: Reports as per HPI Psychiatric: Reports as per HPI Endocrine: Reports as per HPI Hematologic/Lymphatic: Reports as per HPI Allergic/Immunologic: Reports as per HPI Past Medical History Past Medical History: Coronary Artery Disease (CAD), Chest Pain / Angina, Heart Failure, Hypertension, Pneumonia, Supraventricular Tachycardia (SVT) Additional Past Medical History / Comment(s): migraines, bronchitis, H. pylori, severe mitral valve regurgitation with thickened mitral valve with restricted leaflet mobility, severe pulmonary hypertension with an RSVP of 86 mmHg. 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 Past Anesthesia/Blood Transfusion Reactions: No Reported Reaction Past Psychological History: Depression Smoking Status: Former smoker (As quit smoking for around 3 weeks.) Past Alcohol Use History: None Reported Past Drug Use History: None Reported Additional Drug Use History / Comment(s): stopped smoking 04/2022 - Past Family History Mother Family Medical History: Coronary Artery Disease (CAD) Additional Family Medical History / Comment(s): Mother is still alive at 79 years old Father Family Medical History: Cancer, Diabetes Mellitus Additional Family Medical History / Comment(s): Father is still alive at 82 years familyi Family Medical History: Coronary Artery Disease (CAD) Additional Family Medical History / Comment(s): heart disease Medications and Allergies Home Medications Medication Instructions Recorded Confirmed Type Citalopram Hydrobromide [CeleXA] 20 mg PO BID 04/07/22 05/15/22 History HYDROcodone/APAP 7.5-325MG [[place] 1 tab PO QID PRN 04/07/22 05/15/22 History 7.5-325] clonazePAM [KlonoPIN] 0.5 mg PO BID PRN 04/07/22 05/15/22 History Aspirin 81 mg PO DAILY 90 Days #90 tab 11/05/22 11/23/22 Rx Atorvastatin [Lipitor] 20 mg PO DAILY 30 Days #30 tab 04/27/22 05/15/22 Rx Furosemide [Lasix] 20 mg PO DAILY 30 Days #30 tab 04/27/22 05/15/22 Rx Metoprolol Tartrate 25 mg PO BID 30 Days #60 tab 04/27/22 05/15/22 Rx Potassium Chloride ER [K-Dur 10] 10 meq PO DAILY 30 Days #30 tab 04/27/22 05/15/22 Rx Nicotine 14Mg/24Hr Patch [Habitrol] 1 patch TRANSDERM DAILY PRN 05/15/22 05/15/22 History Allergies Allergy/AdvReac Type Severity Reaction Status Date / Time adhesive tape AdvReac Itching Verified 05/15/22 22:13 risperidone [From Risperdal] AdvReac SPASMS, Verified 05/15/22 17:44 AGGITATION Physical Exam Vitals: Vital Signs Temp Pulse Resp BP Pulse Ox 05/17/22 13:32 98.1 F 78 19 117/59 95 05/17/22 10:25 98.3 F 79 20 103/64 91 L 05/17/22 04:00 97.8 F 79 18 121/71 97 05/17/22 02:00 83 18 05/17/22 00:33 96 05/17/22 00:00 98.0 F 83 18 107/69 91 L 05/16/22 20:00 98.3 F 83 18 117/58 95 05/16/22 17:50 97.8 F 92 18 111/58 96 Intake and Output 05/17/22 05/17/22 05/17/22 06:59 14:59 22:59 Output Total 225 1500 Balance -225 -1500 Output: Urine 225 1500 Other: Voiding Method Indwelling Catheter Indwelling Catheter # Bowel Movements 1 1 Weight 80.5 kg CONSTITUTIONAL: Awake and alert, appears comfortable, cooperative, well- developed, well-nourished, no pain, no acute distress, clinically improved and t he patient is currently on room air oxygen. Earlier the patient was on 4 L of oxygen by nasal cannula. EYES: Pupils equal, round, reactive to light, normal ocular movement ENT: Moist mucous membranes without oral lesions present; edentulous NECK: No masses, no bruits, trachea midline RESPIRATORY: Lungs sounds diminished bilaterally, with few scattered expiratory wheezes. Respirations are symmetrical, nonlabored. CARDIOVASCULAR: S1, S2 present. Regular rate and rhythm, sinus rhythm on t elemetry. Palpable peripheral pulses bilaterally. +1 edema to her lower extremities. No calf pain or tenderness noted. No significant lower extremity varicosities noted. GASTROINTESTINAL: Abdomen soft, nontender, and distended without masses or organomegaly noted. There is no rebound or guarding present. Active bowel sounds present 4 quadrants. GENITOURINARY: Deferred INTEGUMENTARY: Skin is warm and dry, no clubbing or cyanosis is present. MUSKULOSKELETAL: Able to move all extremities, strength equal bilaterally, normal posture. PSYCHIATRIC: Alert and oriented to person place and time, appropriate affect, intact judgment and insight. Episodes of anxiousness. Results - Laboratory Findings CBC and BMP: 05/17/22 08:29 05/17/22 08:29 PT/INR, D-dimer PT 11.2 sec (9.0-12.0) 05/16/22 07:55 INR 1.0 (<1.2) 05/16/22 07:55 D-Dimer 3.20 mg/L FEU (<0.60) H 05/15/22 17:53 Abnormal lab findings: Abnormal Labs 05/15/22 05/15/22 05/15/22 17:53 17:53 17:53 RDW 15.8 H D-Dimer 3.20 H Potassium Carbon Dioxide Glucose 100 H Total Bilirubin 1.4 H AST 132 H ALT 158 H Alkaline Phosphatase 232 H Lipase 19 L Urine Protein Ur Leukocyte Esterase Amorphous Sediment Hyaline Casts Urine Mucus 05/15/22 05/16/22 05/17/22 18:44 07:55 08:29 RDW D-Dimer Potassium 3.4 L Carbon Dioxide 32 H 35 H Glucose 112 H Total Bilirubin 1.7 H AST 110 H 70 H ALT 146 H 113 H Alkaline Phosphatase 205 H 197 H Lipase Urine Protein 1+ H Ur Leukocyte Esterase Trace H Amorphous Sediment Occasional H Hyaline Casts 10 H Urine Mucus Occasional H - Diagnostic Findings Chest x-ray: image reviewed CT scan - chest: image reviewed Assessment and Plan Plan: Acute CHF secondary to severe mitral regurgitation/stenosis and decompensated heart failure. The patient is being considered for valve surgery/replacement/repair. Acute fluid overload secondary to above Severe mitral valve regurgitation/stenosis with secondary pulmonary hypertension Shortness of breath secondary to above Acute hypoxic respiratory failure secondary to above, improving Right-sided pleural effusion, small, secondary to above Nonocclusive coronary artery disease Lower extremity edema secondary to above Hypertension Depression Hyperlipidemia Adequate performance of functional status Smoker Plan Continue optimizing the CHF and a cardiac condition Continue diuretics Provide the patient incentive spirometer CAT scan of the chest was noted and the patient is more right-sided pleural effusion, no need for drainage 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 Preoperative teaching will be enforced We'll follow
[2022-05-18] MEDS: HEPARIN SODIUM,PORCINE/PF 5,000 UNIT/0.5 ML SYRINGE SQ SCH ×3 (05:39→20:11)
[2022-05-18] MEDS: HYDROcodone/APAP 7.5-325MG 1 EACH TAB PO PRN ×2 (06:06→18:40)
[2022-05-18] MEDS: PANTOPRAZOLE 40 MG TABLET PO SCH (06:06)
[2022-05-18 09:28] LABS: HCT 40.7 % (34.0-46.0); HGB 13.4 gm/dL (11.4-16.0); Hypochromasia Slight; MCH 31.7 pg (25.0-35.0); MCHC 32.9 g/dL (31.0-37.0); MCV 96.5 fL (80.0-100.0); Mean Platelet Volume 8.5; Platelet Count 248 k/uL (150-450); RBC 4.21 m/uL (3.80-5.40); WBC 7.2 k/uL (3.8-10.6)
[2022-05-18] MEDS: CITALOPRAM HYDROBROMIDE 20 MG TAB PO SCH ×2 (09:35→20:01)
[2022-05-18] MEDS: METOPROLOL TARTRATE 25 MG TAB PO SCH ×2 (09:35→20:01)
[2022-05-18] MEDS: SENNOSIDES 8.6 MG TAB PO SCH (09:36)
[2022-05-18] MEDS: FUROSEMIDE 10 MG/ML 4 ML VIAL IV SCH ×2 (09:36→20:01)
[2022-05-18] MEDS: polyethylene glycoL 3350 17 GM POWD.PACK PO SCH (09:36)
[2022-05-18] MEDS: LACTULOSE 20 GM/30 ML CUP PO SCH (09:36)
[2022-05-18] MEDS: ASPIRIN 81 MG PO SCH (09:36)
[2022-05-18] MEDS: MUPIROCIN 2% OINT 22 GM TUBE TOPICAL SCH ×2 (09:36→20:02)
[2022-05-18] MEDS: ATORVASTATIN 20 MG TAB PO SCH (09:36)
[2022-05-18 09:40] LABS: ALT 89 U/L (4-34); AST 59 U/L (14-36); African American GFR (CKD) >90 (>60 ml/min/1.73 sqM); Albumin 4.2 g/dL (3.5-5.0); Alkaline Phosphatase 194 U/L (38-126); Anion Gap 9 mmol/L; Blood Urea Nitrogen 16 mg/dL (7-17); Calcium 8.2 mg/dL (8.4-10.2); Carbon Dioxide 34 mmol/L (22-30); Chloride 96 mmol/L (98-107); Glucose 154 mg/dL (74-99); Non-African American GFR(CKD) >90 (>60 ml/min/1.73 sqM); Potassium 3.4 mmol/L (3.5-5.1); Sodium 139 mmol/L (137-145); Total Protein 6.6 g/dL (6.3-8.2)
--- NOTE | 2022-05-18 10:01 | P.PN ---
Subjective Progress Note Date: 05/18/22 Principal diagnosis: Severe mitral valve regurgitation, moderate to severe mitral valve stenosis, elevated liver enzymes likely rate related to hepatic congestion, acute on chronic diastolic congestive heart failure and constipation. Past medical history significant for pulmonary hypertension with a recent RVSP 86 mmHg, mild nonobstructive coronary artery disease by heart catheterization to her circumflex coronary artery, hypertension, chronic tobacco abuse although has not smoked in 3 weeks, COPD with a previous pulmonary function test showing an FEV1 of 42% of predicted value with a base volume of 1.04 L, history of SVT, remote history of pneumonia, history of depression and family history of coronary artery disease. The patient was seen and examined at her bedside today 05/18/2022 on the cardiac stepdown unit. She is sitting up to the bedside edge, is awake, alert, oriented 3 and is in no acute apparent distress. She reports she feels much improved today with her breathing and denies any complaints of pain at this time. The patient does still have +1 edema to her bilateral lower extremities, although she reports her edema is much improved from admission. She remains on Lasix 40 mg IV every 12 hours. Laboratory results this morning show a WBC count 7.2, hemoglobin 13.4, hematocrit 40.7, and platelets 248, sodium 139, potassium 3.4, chloride 96, CO2 34, BUN 16, creatinine 0.64, glucose 154, calcium 8.2, liver enzymes continued to trend down with AST 59, and ALT 89. ProBNP was repeated this morning and is 1700. The patient has been up ambulating around the room and in the cardiac stepdown unit hallway. Preoperative teaching has been reinforced with the patient. Oxygen saturations are 95% on room air and she is achieving 8970-3462 mL on her incentive spirometry. Remote telemetry is showing normal sinus rhythm heart rate 78 BPM. Objective - Vital Signs Vital signs: Vital Signs Temp 97.9 F 05/18/22 09:34 Pulse 65 05/18/22 09:34 Resp 18 05/18/22 09:34 BP 115/75 05/18/22 09:34 Pulse Ox 95 05/18/22 09:34 FiO2 40 05/15/22 22:00 Intake & Output 05/17/22 05/18/22 05/18/22 18:59 06:59 18:59 Intake Total 180 118 Output Total 1500 1675 Balance -1320 -1675 118 Weight 80 kg Intake: Oral 180 118 Output: Urine 1500 1675 Other: Voiding Method Indwelling Catheter Toilet # Voids 2 # Bowel Movements 1 - Exam CONSTITUTIONAL: Sitting up to the bedside edge on the cardiac stepdown unit, appears comfortable, cooperative, no apparent acute distress. HEENT: Neck is supple, no JVD, no lymphadenopathy. RESPIRATORY: Lungs sounds essentially clear throughout, few scattered crackles to her bilateral bases. Diminished to her right lower lobe. Respirations are symmetrical and nonlabored. Currently on room air with oxygen saturations 95%. Able to achieve 1000 mL on their incentive spirometry. Strong cough. CARDIOVASCULAR: Regular rhythm and rate. S1 and S2 present, negative for S3, gallop or murmur. +1 edema to his bilateral lower extremities. No calf pain or tenderness noted. GASTROINTESTINAL: Abdomen soft, nontender, slightly distended. Active bowel sounds present 4 quadrants. Tolerating diet. Passing flatus. No guarding or rigidity. GENITOURINARY: Continues to void. INTEGUMENTARY: Skin is warm and dry with no evidence of clubbing or cyanosis. NEUROLOGIC: Cranial nerves II through XII intact. No focal deficits. MUSKULOSKELETAL: Able to move all extremities, strength equal bilaterally. PSYCHIATRIC: Alert and oriented to person place and time, appropriate affect, intact judgment and insight. - Allied health notes Allied health notes reviewed: nursing - Labs CBC & Chem 7: 05/18/22 08:50 05/18/22 08:50 Labs: Abnormal Lab Results - Last 24 Hours (Table) 05/18/22 Range/Units 08:50 Potassium 3.4 L (3.5-5.1) mmol/L Chloride 96 L (98-107) mmol/L Carbon Dioxide 34 H (22-30) mmol/L Glucose 154 H (74-99) mg/dL Calcium 8.2 L (8.4-10.2) mg/dL AST 59 H (14-36) U/L ALT 89 H (4-34) U/L Alkaline Phosphatase 194 H (38-126) U/L - Imaging and Cardiology Chest x-ray: report reviewed, image reviewed Assessment and Plan Assessment: 1. Severe mitral valve regurgitation with thickened mitral valve with restricted leaflet mobility 2. Severe pulmonary hypertension with a RSVP 86 mmHg 3. Acute on chronic diastolic heart failure 4. Shortness of breath with lower extremity edema possibly secondary to severe mitral valve regurgitation or congestive heart failure 5. Mild nonobstructive coronary artery disease involving the circumflex coronary artery 6. Abdominal distention, likely secondary to constipation 7. Elevated liver enzymes, likely secondary to congestion from right heart failure 8. History of hypertension 9. COPD with a preoperative FEV1 42% of predicted value with a base volume of 1.04 L 10. History of tobacco dependence, has not smoked for 3 weeks 11. History of depression 12. Remote history of pneumonia 13. Family history of coronary artery disease Plan: 1. Continue to optimize medical management with aspirin, statin and beta vince. 2. Diuretic management per primary care and cardiology recommendations. 3. Continue to record strict inaccurate I's and O's. 4. Continue Dulcolax suppository 10 mg when necessary complaints of constipation. 5. Continue Mupirocin 2% ointment twice a day to each Nare. 6. Encourage use of her incentive spirometry 10 times every hour while awake. 7. Encourage activity, out of bed for all meals. Cardiac rehab consulted 8. Continue to monitor daily labs and chest x-rays. ProBNP level is trending down at 1700. 9. She will be scheduled sometime early next week for mitral valve surgery. Timing of the surgery to follow. 10. More recommendations to follow based on patient's clinical course. Time with Patient: Greater than 30
[2022-05-18] MEDS ORDERED: POTASSIUM CHLORIDE ER 20 MEQ TAB.ER PO STA (11:33)
--- NOTE | 2022-05-18 11:37 | P.PN ---
Subjective Progress Note Date: 05/18/22 Principal diagnosis: abdominal pain Patient currently feeling better, she did have a large bowel movement yesterday. Abdominal discomfort is feeling better today. Denied fevers or chills. No nausea or vomiting. Breathing has improved. Objective - Vital Signs Vital signs: Vital Signs Temp 97.9 F 05/18/22 09:34 Pulse 65 05/18/22 09:34 Resp 18 05/18/22 09:34 BP 115/75 05/18/22 09:34 Pulse Ox 95 05/18/22 09:34 FiO2 40 05/15/22 22:00 Intake & Output 05/17/22 05/18/22 05/18/22 18:59 06:59 18:59 Intake Total 180 118 Output Total 1500 1675 800 Balance -3811 -0992 -234 Weight 80 kg Intake: Oral 180 118 Output: Urine 1500 1675 800 Other: Voiding Method Indwelling Catheter Toilet # Voids 2 # Bowel Movements 1 - Exam General: non toxic, no distress, appears at stated age, obese Derm: no unusual rashes/lesions, warm Head: atraumatic, normocephalic, symmetric Eyes: EOMI, no lid lag, anicteric sclera, pupils equal round reactive to light ENT: Nose and ears atraumatic Neck: No cervical lymphadenopathy, trachea midline, supple Mouth: no lip lesion, mucus membranes moist Cardiovascular: S1S2 reg, systolic murmur appreciated, positive dorsalis pedis pulse bilateral, 1+ bilateral lower extremity pitting edema Lungs: Bibasilar rales appreciated without wheezing, no accessory muscle use Abdominal: Distended with minimal tenderness, no guarding Ext: muscle strength 5 out of 5 in all 4 extremities grossly, no gross muscle atrophy, no contractures, Neuro: CN II-XI grossly intact, no gross focal neuro deficits Psych: Alert, oriented, appropriate affect - Labs CBC & Chem 7: 05/18/22 08:50 05/18/22 08:50 Labs: Abnormal Lab Results - Last 24 Hours (Table) 05/18/22 Range/Units 08:50 Potassium 3.4 L (3.5-5.1) mmol/L Chloride 96 L (98-107) mmol/L Carbon Dioxide 34 H (22-30) mmol/L Glucose 154 H (74-99) mg/dL Calcium 8.2 L (8.4-10.2) mg/dL AST 59 H (14-36) U/L ALT 89 H (4-34) U/L Alkaline Phosphatase 194 H (38-126) U/L Assessment and Plan Plan: Shortness of breath with lower extremity edema, suspect secondary to CHF in setting of severe mitral valve disease -Lasix IV every 12 hourly -Intake and output -Daily weights -Cardiology and CT surgery consulted--planning mitral valve surgery early next week. Abdominal distention, suspect multifactorial secondary to constipation with possible ascites from right heart failure -Abdominal ultrasound and CT abdomen showing no fluids, d/w reading radiologist -Laxatives ordered, miralax and senna. Abnormal LFTs -Likely due to liver congestion from right heart failure -Monitor DVT prophylaxis -Heparin subcu CODE STATUS: Full Code Discussed with: Patient Anticipated discharge date: once surgery performed depending on the post operative course Anticipated discharge place: Home
[2022-05-18] MEDS: POTASSIUM CHLORIDE ER 20 MEQ TAB.ER PO SCH ×2 (12:42→18:35)
--- NOTE | 2022-05-18 15:47 | P.PN ---
Subjective Progress Note Date: 05/18/22 On today's evaluation of 05/18/2022, the patient is being seen for a follow-up. She was seen in consultation yesterday. The patient is still comfortable. She is alert and oriented 3. She continues to diabetes and the patient is receiving Lasix 40 mg IV every 12 hours. Her BUN is stable at 60 with 0.6. Her Sodium Is at 139 with a Potassium Level of 3.4 and the Patient Is in a Negative Fluid Balance. The Patient Is Overall Improving. Repeat ProBNP Level Was 1700. She Is Ambulating. She Is Using the Incentive Spirometer. Pulse Ox on Room Air Is around 95%. She Denies Having Any Chest Pain. She Denies Having Any Other Complaints. She Is Afebrile. No Other Issues Otherwise for Now. Objective - Vital Signs Vital signs: Vital Signs Temp 98.2 F 05/18/22 12:40 Pulse 75 05/18/22 12:40 Resp 15 05/18/22 12:40 BP 105/69 05/18/22 12:40 Pulse Ox 94 L 05/18/22 12:40 FiO2 40 05/15/22 22:00 Intake & Output 05/17/22 05/18/22 05/18/22 18:59 06:59 18:59 Intake Total 180 476 Output Total 1500 1675 1100 Balance -1320 -1675 -624 Weight 80 kg Intake: Oral 180 476 Output: Urine 1500 1675 1100 Other: Voiding Method Indwelling Catheter Toilet Toilet # Voids 2 # Bowel Movements 1 - Exam CONSTITUTIONAL: Sitting up to the bedside edge on the cardiac stepdown unit, appears comfortable, cooperative, no apparent acute distress. HEENT: Neck is supple, no JVD, no lymphadenopathy. RESPIRATORY: Lungs sounds essentially clear throughout, few scattered crackles to her bilateral bases. Diminished to her right lower lobe. Respirations are symmetrical and nonlabored. Currently on room air with oxygen saturations 95%. Able to achieve 1000 mL on their incentive spirometry. Strong cough. CARDIOVASCULAR: Regular rhythm and rate. S1 and S2 present, negative for S3, gallop or murmur. +1 edema to his bilateral lower extremities. No calf pain or tenderness noted. GASTROINTESTINAL: Abdomen soft, nontender, slightly distended. Active bowel sounds present 4 quadrants. Tolerating diet. Passing flatus. No guarding or rigidity. GENITOURINARY: Continues to void. INTEGUMENTARY: Skin is warm and dry with no evidence of clubbing or cyanosis. NEUROLOGIC: Cranial nerves II through XII intact. No focal deficits. MUSKULOSKELETAL: Able to move all extremities, strength equal bilaterally. PSYCHIATRIC: Alert and oriented to person place and time, appropriate affect, intact judgment and insight. - Labs CBC & Chem 7: 05/18/22 08:50 05/18/22 08:50 Labs: Abnormal Lab Results - Last 24 Hours (Table) 05/18/22 Range/Units 08:50 Potassium 3.4 L (3.5-5.1) mmol/L Chloride 96 L (98-107) mmol/L Carbon Dioxide 34 H (22-30) mmol/L Glucose 154 H (74-99) mg/dL Calcium 8.2 L (8.4-10.2) mg/dL AST 59 H (14-36) U/L ALT 89 H (4-34) U/L Alkaline Phosphatase 194 H (38-126) U/L Assessment and Plan Plan: Acute CHF secondary to severe mitral regurgitation/stenosis and decompensated heart failure. The patient is being considered for valve surgery/ replacement/repair. Acute fluid overload secondary to above, improving with diuresis and the patient remains on Lasix 40 mg IV every 12 hours. The patient is also on potassium replacement 20 mEq daily basis. Severe mitral valve regurgitation/stenosis with secondary pulmonary hypertension Shortness of breath secondary to above Acute hypoxic respiratory failure secondary to above, improving Right-sided pleural effusion, small, secondary to above Nonocclusive coronary artery disease Lower extremity edema secondary to above Hypertension Depression Hyperlipidemia Adequate performance of functional status Smoker Plan Continue diuresis with Lasix 40 mg IV every 12 hours Mild potassium level and replace accordingly Continue optimizing the CHF and a cardiac condition Provide the patient incentive spirometer CAT scan of the chest was noted and the patient is more right-sided pleural effusion, no need for drainage Cardiothoracic surgery is on the caser up electrolytes Obtain a based on spirometry Smoking cessation Surgery tentatively scheduled for next week. Preoperative teaching will be enforced We'll follow
--- NOTE | 2022-05-18 16:11 | P.PN ---
Subjective HISTORY OF PRESENTING ILLNESS Patient is a pleasant 61-year-old female with history of severe mitral regurgitation, moderate to severe mitral stenosis, mild mitral annular calcification, severe pulmonary hypertension with RVSP 86, diastolic heart f ailure, mild nonobstructive coronary artery disease, SVT, hypertension, tobacco abuse, depression. She follows with Dr. Sims. She has been worked up for her mitral stenosis as well as regurgitation and had recent heart catheterization which showed mild disease and right heart catheterization which showed severe mitral stenosis and elevated pressures. DENISE demonstrated thickened mitral valve with restricted leaflet movement severely dilated left atrium. She was seen at cardiothoracic surgery office however still having significant dyspnea and therefore recommended to be evaluated in the hospital. She was started on Lasix and admits to feeling somewhat better after receiving IV Lasix. She has been having frequent chest pain with minimal exertion. EKG shows sinus rhythm, normal axis, nonspecific minimal ST depressions. Blood work shows d-dimer 3.2, creatinine 0.6, proBNP 3800, troponin normal 1. AST 132, ALT 158, total bilirubin 1.4. Chest CTA showed no PE. 05/17 Patient seen and examined. Patient denies any chest pain or pressure. States her breathing is somewhat better. Has been diuresing well. States she did go for a brief walk and starting to feel somewhat better. 05/18 Patient seen and examined. Patient still with good urine output. -3 L over the last 24 hours. Still with some mild dyspnea. BUN 16, creatinine 0.6, potassium 3.4. PHYSICAL EXAMINATION Vital signs reviewed. CONSTITUTIONAL: No apparent distress. HEENT: Head is normocephalic. Pupils are equal, round. Sclerae anicteric. Mucous membranes of the mouth are moist. No JVD. No carotid bruit. CHEST EXAMINATION: +Crackles at bases HEART EXAMINATION: Regular rate and rhythm. S1, S2 heard. +3/6 systolic murmur, no gallops or rub. ABDOMEN: Soft, nontender. Positive bowel sounds. EXTREMITIES: 2+ peripheral pulses, no lower extremity edema and no calf tenderness. NEUROLOGIC EXAMINATION: Patient is awake, alert and oriented x3. ASSESSMENT 1. Acute on chronic diastolic heart failure 2. Severe mitral regurgitation 3. Moderate to severe mitral stenosis 4. Pulmonary hypertension RVSP 86 related to left-sided heart failure 5. Mild nonobstructive CAD by heart catheterization 6. Elevated liver enzymes likely related to hepatic congestion 7. Hypertension 8. History of tobacco abuse PLAN Continue with current diuretics, appears to be improving. Replace K as needed Monitor creatinine closely. Further recommendations to follow. Objective - Vital Signs Vital signs: Vital Signs Temp 98.2 F 05/18/22 12:40 Pulse 75 05/18/22 12:40 Resp 15 05/18/22 12:40 BP 105/69 05/18/22 12:40 Pulse Ox 94 L 05/18/22 12:40 FiO2 40 05/15/22 22:00 Intake & Output 05/17/22 05/18/22 05/18/22 18:59 06:59 18:59 Intake Total 180 476 Output Total 1500 1675 1100 Balance -5698 -3413 -134 Weight 80 kg Intake: Oral 180 476 Output: Urine 1500 1675 1100 Other: Voiding Method Indwelling Catheter Toilet Toilet # Voids 2 # Bowel Movements 1 - Labs CBC & Chem 7: 05/18/22 08:50 05/18/22 08:50 Labs: Abnormal Lab Results - Last 24 Hours (Table) 05/18/22 Range/Units 08:50 Potassium 3.4 L (3.5-5.1) mmol/L Chloride 96 L (98-107) mmol/L Carbon Dioxide 34 H (22-30) mmol/L Glucose 154 H (74-99) mg/dL Calcium 8.2 L (8.4-10.2) mg/dL AST 59 H (14-36) U/L ALT 89 H (4-34) U/L Alkaline Phosphatase 194 H (38-126) U/L
[2022-05-19] MEDS: HYDROcodone/APAP 7.5-325MG 1 EACH TAB PO PRN ×3 (02:26→17:41)
[2022-05-19] MEDS: PANTOPRAZOLE 40 MG TABLET PO SCH (06:15)
[2022-05-19] MEDS: HEPARIN SODIUM,PORCINE/PF 5,000 UNIT/0.5 ML SYRINGE SQ SCH ×3 (06:15→20:59)
[2022-05-19 08:49] LABS: HCT 42.1 % (34.0-46.0); HGB 14.1 gm/dL (11.4-16.0); Hypochromasia Slight; MCH 32.2 pg (25.0-35.0); MCHC 33.6 g/dL (31.0-37.0); Mean Platelet Volume 8.2; Platelet Count 249 k/uL (150-450); RBC 4.39 m/uL (3.80-5.40); RDW 14.8 % (11.5-15.5); WBC 7.1 k/uL (3.8-10.6)
[2022-05-19 08:56] LABS: ALT 79 U/L (4-34); AST 50 U/L (14-36); African American GFR (CKD) >90 (>60 ml/min/1.73 sqM); Albumin 4.4 g/dL (3.5-5.0); Alkaline Phosphatase 196 U/L (38-126); Anion Gap 7 mmol/L; Blood Urea Nitrogen 25 mg/dL (7-17); Calcium 8.9 mg/dL (8.4-10.2); Carbon Dioxide 35 mmol/L (22-30); Chloride 96 mmol/L (98-107); Glucose 103 mg/dL (74-99); Magnesium 2.2 mg/dL (1.6-2.3); Non-African American GFR(CKD) 87 (>60 ml/min/1.73 sqM); Potassium 4.1 mmol/L (3.5-5.1); Sodium 138 mmol/L (137-145)
--- NOTE | 2022-05-19 09:28 | P.PN ---
Subjective Progress Note Date: 05/19/22 Principal diagnosis: Severe mitral valve regurgitation, moderate to severe mitral valve stenosis, elevated liver enzymes likely rate related to hepatic congestion, acute on chronic diastolic congestive heart failure and constipation. Past medical history significant for pulmonary hypertension with a recent RVSP 86 mmHg, mild nonobstructive coronary artery disease by heart catheterization to her circumflex coronary artery, hypertension, chronic tobacco abuse although has not smoked in 3 weeks, COPD with a previous pulmonary function test showing an FEV1 of 42% of predicted value with a base volume of 1.04 L, history of SVT, remote history of pneumonia, history of depression and family history of coronary artery disease. The patient was seen and examined in follow-up today 05/19/2022 at her bedside on the cardiac stepdown unit. Currently she is sitting up to the bedside edge, is awake, alert, oriented 3 and is no is in acute distress. She is complaining of a headache this morning, denies any complaints of shortness of breath or chest pain. She continues to have 1+ edema to her bilateral lower extremities. Oxygen saturation are 94% on room air and she is achieving around 1668-6292 mL on her incentive spirometry with encouragement. Remote telemetry showing normal sinus rhythm heart rate in the 80s. She reports she has been up ambulating in the cardiac stepdown unit hallway and within her room without difficulty. A repeat pro-BNP was completed yesterday which showed the level trending down at 1700. Initial proBNP was 3870. Laboratory results this morning show a WBC count of 7.1, hemoglobin 14.1, hematocrit 42.1, platelets 249, sodium 138, potassium 4.1, BUN 25, creatinine 0.75, glucose 103, calcium 8.9, magnesium 2.2, and her liver enzymes continue to trend down with her AST this morning 50 and her ALT 79. Preoperative teaching has been reinforced with the patient and the importance of continued risk modification with smoking cessation has been reinforced with the patient. Objective - Vital Signs Vital signs: Vital Signs Temp 98.1 F 05/19/22 03:35 Pulse 69 05/19/22 03:35 Resp 18 05/19/22 03:35 BP 107/60 05/19/22 03:35 Pulse Ox 94 L 05/19/22 03:35 FiO2 40 05/15/22 22:00 Intake & Output 05/18/22 05/19/22 05/19/22 18:59 06:59 18:59 Intake Total 594 10 0 Output Total 1100 1300 Balance -506 -1290 0 Weight 79.8 kg Intake: IV 10 0.9 10 Oral 594 0 Output: Urine 1100 1300 Other: Voiding Method Toilet Toilet - Exam CONSTITUTIONAL: Sitting up to the bedside edge on the cardiac stepdown unit, appears comfortable, cooperative, no apparent acute distress. HEENT: Neck is supple, no JVD, no lymphadenopathy. RESPIRATORY: Lungs sounds essentially clear throughout, few scattered crackles to her bilateral bases. Diminished to her right lower lobe. Respirations are symmetrical and nonlabored. Currently on room air with oxygen saturations 94%. Able to achieve 8365-7158 mL on their incentive spirometry. Strong cough. CARDIOVASCULAR: Regular rhythm and rate. S1 and S2 present, negative for S3, gallop or murmur. +1 edema to his bilateral lower extremities. No calf pain or tenderness noted. GASTROINTESTINAL: Abdomen soft, nontender, slightly distended. Active bowel sounds present 4 quadrants. Tolerating diet. Passing flatus. No guarding or rigidity. GENITOURINARY: Continues to void. INTEGUMENTARY: Skin is warm and dry with no evidence of clubbing or cyanosis. NEUROLOGIC: Cranial nerves II through XII intact. No focal deficits. MUSKULOSKELETAL: Able to move all extremities, strength equal bilaterally. PSYCHIATRIC: Alert and oriented to person place and time, appropriate affect, intact judgment and insight. - Allied health notes Allied health notes reviewed: nursing - Labs CBC & Chem 7: 05/19/22 08:02 05/19/22 08:02 Labs: Abnormal Lab Results - Last 24 Hours (Table) 05/18/22 05/19/22 Range/Units 08:50 08:02 Potassium 3.4 L (3.5-5.1) mmol/L Chloride 96 L 96 L (98-107) mmol/L Carbon Dioxide 34 H 35 H (22-30) mmol/L BUN 25 H (7-17) mg/dL Glucose 154 H 103 H (74-99) mg/dL Calcium 8.2 L (8.4-10.2) mg/dL AST 59 H 50 H (14-36) U/L ALT 89 H 79 H (4-34) U/L Alkaline Phosphatase 194 H 196 H (38-126) U/L Assessment and Plan Assessment: 1. Severe mitral valve regurgitation with thickened mitral valve with restricted leaflet mobility 2. Severe pulmonary hypertension with a RSVP 86 mmHg 3. Acute on chronic diastolic heart failure 4. Shortness of breath with lower extremity edema possibly secondary to severe mitral valve regurgitation or congestive heart failure 5. Mild nonobstructive coronary artery disease involving the circumflex coronary artery 6. Abdominal distention, likely secondary to constipation 7. Elevated liver enzymes, likely secondary to congestion from right heart failure 8. History of hypertension 9. COPD with a preoperative FEV1 42% of predicted value with a base volume of 1.04 L 10. History of tobacco dependence, has not smoked for 3 weeks 11. History of depression 12. Remote history of pneumonia 13. Family history of coronary artery disease Plan: 1. Continue to optimize medical management with aspirin, statin and beta vince. 2. Diuretic management per primary care and cardiology recommendations. 3. Continue to record strict inaccurate I's and O's. 4. Continue Dulcolax suppository 10 mg when necessary complaints of constipation. 5. Continue Mupirocin 2% ointment twice a day to each Nare. 6. Encourage use of her incentive spirometry 10 times every hour while awake. 7. Encourage activity, out of bed for all meals. Cardiac rehab has been consulted. 8. Continue to monitor daily labs and chest x-rays. 9. She will be scheduled sometime early next week for mitral valve surgery. Timing of the surgery to follow. 10. The importance of risk modification including smoking cessation has been reinforced with the patient. 11. Preoperative teaching has been reinforced with the patient. 12. Medical management and other comorbidities per primary care service. 13. More recommendations to follow based on patient's clinical course. Time with Patient: Greater than 30
[2022-05-19] MEDS: LACTULOSE 20 GM/30 ML CUP PO SCH (09:36)
[2022-05-19] MEDS: ATORVASTATIN 20 MG TAB PO SCH (09:36)
[2022-05-19] MEDS: SENNOSIDES 8.6 MG TAB PO SCH (09:36)
[2022-05-19] MEDS: POTASSIUM CHLORIDE ER 20 MEQ TAB.ER PO SCH (09:36)
[2022-05-19] MEDS: METOPROLOL TARTRATE 25 MG TAB PO SCH ×2 (09:36→20:02)
[2022-05-19] MEDS: ASPIRIN 81 MG PO SCH (09:36)
[2022-05-19] MEDS: polyethylene glycoL 3350 17 GM POWD.PACK PO SCH (09:36)
[2022-05-19] MEDS: FUROSEMIDE 10 MG/ML 4 ML VIAL IV SCH ×2 (09:36→20:02)
[2022-05-19] MEDS: MUPIROCIN 2% OINT 22 GM TUBE TOPICAL SCH ×2 (09:37→20:02)
[2022-05-19] MEDS: CITALOPRAM HYDROBROMIDE 20 MG TAB PO SCH ×2 (09:51→20:02)
--- NOTE | 2022-05-19 12:28 | P.PN ---
Subjective Progress Note Date: 05/19/22 On today's evaluation of 05/18/2022, the patient is being seen for a follow-up. She was seen in consultation yesterday. The patient is still comfortable. She is alert and oriented 3. She continues to diabetes and the patient is receiving Lasix 40 mg IV every 12 hours. Her BUN is stable at 60 with 0.6. Her Sodium Is at 139 with a Potassium Level of 3.4 and the Patient Is in a Negative Fluid Balance. The Patient Is Overall Improving. Repeat ProBNP Level Was 1700. She Is Ambulating. She Is Using the Incentive Spirometer. Pulse Ox on Room Air Is around 95%. She Denies Having Any Chest Pain. She Denies Having Any Other Complaints. She Is Afebrile. No Other Issues Otherwise for Now. 2021, the patient remains in negative fluid balance as the patient is receiving Lasix 40 mg every 12 hours. Fluid balance was -1140 yesterday. In terms of her lungs work, the patient has a stable BUN of 25 with a creatinine of 0.7. Sodium is at 138. Potassium level was replaced and currently is up to 4.1. The white cell count at 7.1 with a hemoglobin of 14.1. The patient is currently on room air oxygen and she is carrying a pulse ox of 94%. She is ambulating. No chest pain. No extremity edema is improved. The patient is looking forward for surgery and we don't have the final date yet. Objective - Vital Signs Vital signs: Vital Signs Temp 98.1 F 05/19/22 03:35 Pulse 73 05/19/22 08:00 Resp 16 05/19/22 08:00 BP 117/63 05/19/22 08:00 Pulse Ox 94 L 05/19/22 08:00 FiO2 40 05/15/22 22:00 Intake & Output 05/18/22 05/19/22 05/19/22 18:59 06:59 18:59 Intake Total 594 10 0 Output Total 1100 1300 Balance -506 -1290 0 Weight 79.8 kg Intake: IV 10 0.9 10 Oral 594 0 Output: Urine 1100 1300 Other: Voiding Method Toilet Toilet Toilet - Exam CONSTITUTIONAL: Sitting up to the bedside edge on the cardiac stepdown unit, appears comfortable, cooperative, no apparent acute distress. HEENT: Neck is supple, no JVD, no lymphadenopathy. RESPIRATORY: Lungs sounds essentially clear throughout, few scattered crackles to her bilateral bases. Diminished to her right lower lobe. Respirations are symmetrical and nonlabored. Currently on room air with oxygen saturations 95%. Able to achieve 1000 mL on their incentive spirometry. Strong cough. CARDIOVASCULAR: Regular rhythm and rate. S1 and S2 present, negative for S3, gallop or murmur. +1 edema to his bilateral lower extremities. No calf pain or tenderness noted. GASTROINTESTINAL: Abdomen soft, nontender, slightly distended. Active bowel sounds present 4 quadrants. Tolerating diet. Passing flatus. No guarding or rigidity. GENITOURINARY: Continues to void. INTEGUMENTARY: Skin is warm and dry with no evidence of clubbing or cyanosis. NEUROLOGIC: Cranial nerves II through XII intact. No focal deficits. MUSKULOSKELETAL: Able to move all extremities, strength equal bilaterally. PSYCHIATRIC: Alert and oriented to person place and time, appropriate affect, intact judgment and insight. - Labs CBC & Chem 7: 05/19/22 08:02 05/19/22 08:02 Labs: Abnormal Lab Results - Last 24 Hours (Table) 05/19/22 Range/Units 08:02 Chloride 96 L (98-107) mmol/L Carbon Dioxide 35 H (22-30) mmol/L BUN 25 H (7-17) mg/dL Glucose 103 H (74-99) mg/dL AST 50 H (14-36) U/L ALT 79 H (4-34) U/L Alkaline Phosphatase 196 H (38-126) U/L Assessment and Plan Plan: Acute CHF secondary to severe mitral regurgitation/stenosis and decompensated heart failure. The patient is being considered for valve surgery/replacement/repair. Acute fluid overload secondary to above, improving with diuresis and the patient remains on Lasix 40 mg IV every 12 hours. The patient is also on potassium rep lacement 20 mEq daily basis. Severe mitral valve regurgitation/stenosis with secondary pulmonary hypertension Shortness of breath secondary to above Acute hypoxic respiratory failure secondary to above, improving Right-sided pleural effusion, small, secondary to above Nonocclusive coronary artery disease Lower extremity edema secondary to above Hypertension Depression Hyperlipidemia Adequate performance of functional status Smoker Plan Clinically more stable and the patient is currently on room air oxygen Continue diuresis with Lasix 40 mg IV every 12 hours Potassium is better placed Continue optimizing the CHF and a cardiac condition Provide the patient incentive spirometer CAT scan of the chest was noted and the patient is more right-sided pleural effusion, no need for drainage Cardiothoracic surgery is on the returned case inspector electrolytes Obtain a based on spirometry Smoking cessation Surgery tentatively scheduled for next week. Preoperative teaching will be enforced, I do not have his surgical date for now We'll follow
--- NOTE | 2022-05-19 12:37 | P.PN ---
Subjective Progress Note Date: 05/19/22 Principal diagnosis: abdominal pain Patient is feeling much better today. Denies shortness of breath. Swelling in the legs is much down. No abdominal pain, nausea or vomiting. No fevers or chills. Objective - Vital Signs Vital signs: Vital Signs Temp 98.1 F 05/19/22 03:35 Pulse 73 05/19/22 08:00 Resp 16 05/19/22 08:00 BP 117/63 05/19/22 08:00 Pulse Ox 94 L 05/19/22 08:00 FiO2 40 05/15/22 22:00 Intake & Output 05/18/22 05/19/22 05/19/22 18:59 06:59 18:59 Intake Total 594 10 0 Output Total 1100 1300 Balance -506 -1290 0 Weight 79.8 kg Intake: IV 10 0.9 10 Oral 594 0 Output: Urine 1100 1300 Other: Voiding Method Toilet Toilet Toilet - Exam General: non toxic, no distress, appears at stated age, obese Derm: no unusual rashes/lesions, warm Head: atraumatic, normocephalic, symmetric Eyes: EOMI, no lid lag, anicteric sclera, pupils equal round reactive to light ENT: Nose and ears atraumatic Neck: No cervical lymphadenopathy, trachea midline, supple Mouth: no lip lesion, mucus membranes moist Cardiovascular: S1S2 reg, systolic murmur appreciated, positive dorsalis pedis pulse bilateral, 1+ bilateral lower extremity pitting edema Lungs: Bibasilar rales appreciated without wheezing, no accessory muscle use Abdominal: Distended with minimal tenderness, no guarding Ext: muscle strength 5 out of 5 in all 4 extremities grossly, no gross muscle atrophy, no contractures, Neuro: CN II-XI grossly intact, no gross focal neuro deficits Psych: Alert, oriented, appropriate affect - Labs CBC & Chem 7: 05/19/22 08:02 05/19/22 08:02 Labs: Abnormal Lab Results - Last 24 Hours (Table) 05/19/22 Range/Units 08:02 Chloride 96 L (98-107) mmol/L Carbon Dioxide 35 H (22-30) mmol/L BUN 25 H (7-17) mg/dL Glucose 103 H (74-99) mg/dL AST 50 H (14-36) U/L ALT 79 H (4-34) U/L Alkaline Phosphatase 196 H (38-126) U/L Assessment and Plan Plan: Shortness of breath with lower extremity edema, suspect secondary to CHF in setting of severe mitral valve disease -Lasix IV every 12 hourly, will continue for now, switch to oral in am -Intake and output -Daily weights -Cardiology and CT surgery consulted--planning mitral valve surgery early next week. Abdominal distention, suspect multifactorial secondary to constipation with po ssible ascites from right heart failure -Abdominal ultrasound and CT abdomen showing no fluids, d/w reading radiologist -Laxatives ordered, miralax and senna. -Resolved. Abnormal LFTs -Likely due to liver congestion from right heart failure -Monitor DVT prophylaxis -Heparin subcu CODE STATUS: Full Code Discussed with: Patient Anticipated discharge date: once surgery performed depending on the post operative course Anticipated discharge place: Home
--- NOTE | 2022-05-19 13:04 | P.PN ---
Subjective HISTORY OF PRESENTING ILLNESS Patient is a pleasant 61-year-old female with history of severe mitral regurgitation, moderate to severe mitral stenosis, mild mitral annular calcification, severe pulmonary hypertension with RVSP 86, diastolic heart f ailure, mild nonobstructive coronary artery disease, SVT, hypertension, tobacco abuse, depression. She follows with Dr. Sims. She has been worked up for her mitral stenosis as well as regurgitation and had recent heart catheterization which showed mild disease and right heart catheterization which showed severe mitral stenosis and elevated pressures. DENISE demonstrated thickened mitral valve with restricted leaflet movement severely dilated left atrium. She was seen at cardiothoracic surgery office however still having significant dyspnea and therefore recommended to be evaluated in the hospital. She was started on Lasix and admits to feeling somewhat better after receiving IV Lasix. She has been having frequent chest pain with minimal exertion. EKG shows sinus rhythm, normal axis, nonspecific minimal ST depressions. Blood work shows d-dimer 3.2, creatinine 0.6, proBNP 3800, troponin normal 1. AST 132, ALT 158, total bilirubin 1.4. Chest CTA showed no PE. 05/17 Patient seen and examined. Patient denies any chest pain or pressure. States her breathing is somewhat better. Has been diuresing well. States she did go for a brief walk and starting to feel somewhat better. 05/18 Patient seen and examined. Patient still with good urine output. -3 L over the last 24 hours. Still with some mild dyspnea. BUN 16, creatinine 0.6, potassium 3.4. 05/19 Patient seen and examined. SOB is stable. Some atypical chest pain with leaning forward. Walking to the bathroom without difficulty. PHYSICAL EXAMINATION Vital signs reviewed. CONSTITUTIONAL: No apparent distress. HEENT: Head is normocephalic. Pupils are equal, round. Sclerae anicteric. Mucous membranes of the mouth are moist. No JVD. No carotid bruit. CHEST EXAMINATION: +Crackles at bases HEART EXAMINATION: Regular rate and rhythm. S1, S2 heard. +3/6 systolic murmur, no gallops or rub. ABDOMEN: Soft, nontender. Positive bowel sounds. EXTREMITIES: 2+ peripheral pulses, no lower extremity edema and no calf tenderness. NEUROLOGIC EXAMINATION: Patient is awake, alert and oriented x3. ASSESSMENT 1. Acute on chronic diastolic heart failure 2. Severe mitral regurgitation 3. Moderate to severe mitral stenosis 4. Pulmonary hypertension RVSP 86 related to left-sided heart failure 5. Mild nonobstructive CAD by heart catheterization 6. Elevated liver enzymes likely related to hepatic congestion 7. Hypertension 8. History of tobacco abuse PLAN Continue with current diuretics, appears to be improving. Surgery sometime next 1-3 days per CTS Monitor creatinine closely. Further recommendations to follow. Objective - Vital Signs Vital signs: Vital Signs Temp 98.1 F 05/19/22 03:35 Pulse 73 05/19/22 08:00 Resp 16 05/19/22 08:00 BP 117/63 05/19/22 08:00 Pulse Ox 94 L 05/19/22 08:00 FiO2 40 05/15/22 22:00 Intake & Output 05/18/22 05/19/22 05/19/22 18:59 06:59 18:59 Intake Total 594 10 0 Output Total 1100 1300 Balance -506 -1290 0 Weight 79.8 kg Intake: IV 10 0.9 10 Oral 594 0 Output: Urine 1100 1300 Other: Voiding Method Toilet Toilet Toilet - Labs CBC & Chem 7: 05/19/22 08:02 05/19/22 08:02 Labs: Abnormal Lab Results - Last 24 Hours (Table) 05/19/22 Range/Units 08:02 Chloride 96 L (98-107) mmol/L Carbon Dioxide 35 H (22-30) mmol/L BUN 25 H (7-17) mg/dL Glucose 103 H (74-99) mg/dL AST 50 H (14-36) U/L ALT 79 H (4-34) U/L Alkaline Phosphatase 196 H (38-126) U/L
[2022-05-20] MEDS: HEPARIN SODIUM,PORCINE/PF 5,000 UNIT/0.5 ML SYRINGE SQ SCH ×3 (06:37→20:58)
[2022-05-20] MEDS: PANTOPRAZOLE 40 MG TABLET PO SCH (06:37)
--- NOTE | 2022-05-20 06:55 | XR ---
EXAMINATION TYPE: XR chest 1V portable DATE OF EXAM: 05/20/2022 CLINICAL HISTORY: Preopen cardiac surgery. TECHNIQUE: Single AP portable upright view of the chest is obtained. COMPARISON: Chest x-ray from 3 days earlier FINDINGS: Stable mild cardiomegaly. Chronic parenchymal changes bilaterally redemonstrated without s uspicious new focal airspace opacity, pleural effusion, or pneumothorax seen. Osseous structures are intact. IMPRESSION: Mild Cardiomegaly and chronic changes without acute pulmonary process.
--- NOTE | 2022-05-20 07:40 | P.PN ---
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 The patient was recently admitted to the hospital from 04/25-04/27 for similar complaints, at which time donita matthews was diagnosed with the above mitral valve disease. The patient was advised to follow-up as an outpatient for an elective mitral valve repair/replacement with cardiothoracic surgery. Upon arrival at the emergency room vital signs were within normal limits. Chest CTA revealed no evidence of PE with a right pleural effusion. EKG revealed sinus tachycardia with PVCs at 102 bpm with no notable ST/T-wave changes noted as reviewed by me. Laboratory evaluation was remarkable for troponin of less than 0.012, proBNP 3870, AST 132, ALT 158, and alk phos 232 with a total bilirubin 1.4. She was admitted for acute exacerbation of right- sided heart failure in the setting of severe mitral valve disease. She was started on IV diuresis and cardiology was consulted. Cardiovascular surgery was also consulted. They ultimately recommended early intervention and plan is for surgery sometime this week. Patient seen and examined at bedside. No chest pain, breathing is better than at admission but unchanged from yesterday, no nausea, no vomiting, no chest pain. General: nontoxic, no distress, appears at stated age Derm: warm, dry Head: atraumatic, normocephalic, symmetric Eyes: EOMI, no lid lag, anicteric sclera Mouth: no lip lesion, mucus membranes moist Cardiovascular: S1S2 reg, with murmur, positive posterior tibial pulse bilateral, Lungs: Decreased bs bilateral, no rhonchi, no rales , no accessory muscle use Ext: no gross muscle atrophy, trace edema, no contractures Neuro: CN II-XI grossly intact, no focal neuro deficits Psych: Alert, oriented, appropriate affect Assessment/plan: Acute exacerbation of right-sided heart failure, cor pulmonale in the setting of severe mitral valve disease Severe mitral regurgitation with moderate to severe stenosis Severe pulmonary hypertension Nonobstructive coronary artery disease Hypertension - Cardiology cardiothoracic surgery recommendations. Plan is for surgery this coming week awaiting exact great and time -IV lasix -Aspirin, statin, beta vince -Strict I's and O's, daily weights -Constipation -Continue with bowel regiment Transaminitis secondary to hepatic congestion - improving with diuresis - continue to monitor Acute hypoxic respiratory failure, resolved DVT prophylaxis: Heparin Discussed with: Anticipated discharge: pending clinic course Anticipated discharge place: pending clinic course A total of [] minutes was spent on the care of this complex patient more than 50% of the time was spent in counseling and care coordination. Active Medications Generic Name Dose Route Start Last Admin Trade Name Freq PRN Reason Stop Dose Admin Hydrocodone Bitart/Acetaminophen 1 each 05/17/22 10:56 05/19/22 17:41 Hydrocodone/Apap 7.5-325mg 1 Each Tab PO 1 each Q6HR PRN Administration Pain Aspirin 81 mg 05/16/22 09:00 05/20/22 08:42 Aspirin 81 Mg PO 81 mg DAILY VERONICA Administration Atorvastatin Calcium 20 mg 05/16/22 09:00 05/20/22 08:43 Atorvastatin 20 Mg Tab PO 20 mg DAILY VERONICA Administration Bisacodyl 10 mg 05/17/22 13:01 Bisacodyl 10 Mg Supp RECTAL DAILY PRN Constipation Citalopram Hydrobromide 20 mg 05/16/22 09:00 05/20/22 08:43 Citalopram Hydrobromide 20 Mg Tab PO 20 mg BID VERONICA Administration Clonazepam 0.5 mg 05/15/22 23:43 Clonazepam 0.5 Mg Tab PO BID PRN Anxiety Furosemide 40 mg 05/16/22 09:00 05/20/22 08:43 Furosemide 10 Mg/Ml 4 Ml Vial IV 40 mg Q12HR VERONICA Administration Heparin Sodium (Porcine) 5,000 unit 05/16/22 14:00 05/20/22 06:37 Heparin Sodium,Porcine/Pf 5,000 Unit/0.5 Ml Syringe SQ Not Given Q8H VERONICA Metoprolol Tartrate 25 mg 05/16/22 09:00 05/20/22 08:43 Metoprolol Tartrate 25 Mg Tab PO 25 mg BID VERONICA Administration Miscellaneous Information 1 each 05/16/22 11:05 Potassium Replacement Protocol 1 Each Misc MISCELLANE DAILY PRN Per Protocol Protocol Mupirocin 1 applic 05/17/22 10:15 05/20/22 08:44 Mupirocin 2% Oint 22 Gm Tube TOPICAL 1 applic BID VERONICA Administration Protocol Naloxone HCl 0.2 mg 05/15/22 20:17 Naloxone 0.4 Mg/Ml 1 Ml Vial IV Q2M PRN Opioid Reversal Nicotine 1 patch 05/15/22 23:43 Nicotine 14mg/24hr Patch TRANSDERM DAILY PRN SMOKING CESSATION Pantoprazole Sodium 40 mg 05/18/22 07:30 05/20/22 06:37 Pantoprazole 40 Mg Tablet PO 40 mg AC-BRKFST VERONICA Administration Polyethylene Glycol 17 gm 05/16/22 10:00 05/20/22 08:44 Polyethylene Glycol 3350 17 Gm Powd.Pack PO 17 gm DAILY VERONICA Administration Potassium Chloride 20 meq 05/18/22 16:00 05/20/22 08:43 Potassium Chloride Er 20 Meq Tab.Er PO 20 meq DAILY VERONICA Administration Senna 8.6 mg 05/16/22 10:00 05/20/22 08:43 Sennosides 8.6 Mg Tab PO 8.6 mg DAILY VERONICA Administration Objective - Vital Signs Vital signs: Vital Signs Temp 98.3 F 05/19/22 19:50 Pulse 82 05/20/22 04:00 Resp 16 05/20/22 04:00 BP 110/70 05/20/22 04:00 Pulse Ox 95 05/20/22 04:00 FiO2 21 05/19/22 20:23 Intake & Output 05/19/22 05/20/22 05/20/22 18:59 06:59 18:59 Intake Total 0 237 Output Total 200 Balance 0 37 Weight 79.5 kg Intake: Oral 0 237 Output: Urine 200 Other: Voiding Method Toilet - Labs CBC & Chem 7: 05/20/22 09:55 05/20/22 09:55 Labs: Abnormal Lab Results - Last 24 Hours (Table) 05/19/22 Range/Units 08:02 Chloride 96 L (98-107) mmol/L Carbon Dioxide 35 H (22-30) mmol/L BUN 25 H (7-17) mg/dL Glucose 103 H (74-99) mg/dL AST 50 H (14-36) U/L ALT 79 H (4-34) U/L Alkaline Phosphatase 196 H (38-126) U/L
[2022-05-20] MEDS: ASPIRIN 81 MG PO SCH (08:42)
[2022-05-20] MEDS: FUROSEMIDE 10 MG/ML 4 ML VIAL IV SCH ×2 (08:43→20:24)
[2022-05-20] MEDS: POTASSIUM CHLORIDE ER 20 MEQ TAB.ER PO SCH (08:43)
[2022-05-20] MEDS: CITALOPRAM HYDROBROMIDE 20 MG TAB PO SCH ×2 (08:43→20:24)
[2022-05-20] MEDS: SENNOSIDES 8.6 MG TAB PO SCH (08:43)
[2022-05-20] MEDS: METOPROLOL TARTRATE 25 MG TAB PO SCH ×2 (08:43→20:24)
[2022-05-20] MEDS: ATORVASTATIN 20 MG TAB PO SCH (08:43)
[2022-05-20] MEDS: MUPIROCIN 2% OINT 22 GM TUBE TOPICAL SCH ×2 (08:44→20:26)
[2022-05-20] MEDS: polyethylene glycoL 3350 17 GM POWD.PACK PO SCH (08:44)
[2022-05-20 10:13] LABS: HCT 47.4 % (34.0-46.0); HGB 15.2 gm/dL (11.4-16.0); Hypochromasia Slight; MCH 30.7 pg (25.0-35.0); MCV 96.1 fL (80.0-100.0); Mean Platelet Volume 8.6; Platelet Count 297 k/uL (150-450); RBC 4.93 m/uL (3.80-5.40); RDW 15.2 % (11.5-15.5); WBC 6.7 k/uL (3.8-10.6)
[2022-05-20 10:21] LABS: ALT 66 U/L (4-34); AST 50 U/L (14-36); African American GFR (CKD) >90 (>60 ml/min/1.73 sqM); Albumin 4.9 g/dL (3.5-5.0); Alkaline Phosphatase 222 U/L (38-126); Anion Gap 9 mmol/L; Blood Urea Nitrogen 18 mg/dL (7-17); Calcium 9.2 mg/dL (8.4-10.2); Carbon Dioxide 38 mmol/L (22-30); Chloride 94 mmol/L (98-107); Glucose 123 mg/dL (74-99); Magnesium 2.2 mg/dL (1.6-2.3); Non-African American GFR(CKD) >90 (>60 ml/min/1.73 sqM); Potassium 3.7 mmol/L (3.5-5.1); Sodium 141 mmol/L (137-145); Total Protein 7.9 g/dL (6.3-8.2)
--- NOTE | 2022-05-20 15:26 | P.PN ---
Subjective Progress Note Date: 05/20/22 HISTORY OF PRESENTING ILLNESS Patient is a pleasant 61-year-old female with history of severe mitral regur gitation, moderate to severe mitral stenosis, mild mitral annular calcification, severe pulmonary hypertension with RVSP 86, diastolic heart failure, mild nonobstructive coronary artery disease, SVT, hypertension, tobacco abuse, depression. She follows with Dr. Sims. She has been worked up for her mitral stenosis as well as regurgitation and had recent heart catheterization which showed mild disease and right heart catheterization which showed severe mitral stenosis and elevated pressures. DENISE demonstrated thickened mitral valve with restricted leaflet movement severely dilated left atrium. She was seen at cardiothoracic surgery office however still having significant dyspnea and therefore recommended to be evaluated in the hospital. She was started on Lasix and admits to feeling somewhat better after receiving IV Lasix. She has been having frequent chest pain with minimal exertion. EKG shows sinus rhythm, normal axis, nonspecific minimal ST depressions. Blood work shows d-dimer 3.2, creatinine 0.6, proBNP 3800, troponin normal 1. AST 132, ALT 158, total bilirubin 1.4. Chest CTA showed no PE. 05/17 Patient seen and examined. Patient denies any chest pain or pressure. States her breathing is somewhat better. Has been diuresing well. States she did go for a brief walk and starting to feel somewhat better. 05/18 Patient seen and examined. Patient still with good urine output. -3 L over the last 24 hours. Still with some mild dyspnea. BUN 16, creatinine 0.6, potassium 3.4. 05/19 Patient seen and examined. SOB is stable. Some atypical chest pain with abraham cathy forward. Walking to the bathroom without difficulty. 05/20 Patient denies having any chest pain. She states she is short of breath with minimal activity which is normal for her. She is still waiting for scheduled time for her mitral valve surgery. She is on Lasix 40 mg IV every 12 hours. Chest x-ray reveals chronic changes. 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 BUN 18 and creatinine 0.72, potassium 3.7. On the day EXAMINATION Vital signs reviewed. CONSTITUTIONAL: No apparent distress. HEENT: Head is normocephalic. Pupils are equal, round. Sclerae anicteric. Mucous membranes of the mouth are moist. No JVD. No carotid bruit. CHEST EXAMINATION: +Crackles at bases HEART EXAMINATION: Regular rate and rhythm. S1, S2 heard. +3/6 systolic murmur, no gallops or rub. ABDOMEN: Soft, nontender. Positive bowel sounds. EXTREMITIES: 2+ peripheral pulses, no lower extremity edema and no calf tenderness. NEUROLOGIC EXAMINATION: Patient is awake, alert and oriented x3. ASSESSMENT 1. Acute on chronic diastolic heart failure 2. Severe mitral regurgitation 3. Moderate to severe mitral stenosis 4. Pulmonary hypertension RVSP 86 related to left-sided heart failure 5. Mild nonobstructive CAD by heart catheterization 6. Elevated liver enzymes likely related to hepatic congestion 7. Hypertension 8. History of tobacco abuse PLAN Continue with current diuretics, appears to be improving. Surgery sometime This weekr CTS Monitor creatinine closely. Further recommendations to follow. Nurse practitioner note has been reviewed, I agree with documented findings and plan of care. Patient was seen and examined. Objective - Vital Signs Vital signs: Vital Signs Temp 97.4 F L 05/20/22 08:00 Pulse 105 H 05/20/22 08:00 Resp 20 05/20/22 08:00 BP 105/64 05/20/22 08:00 Pulse Ox 93 L 05/20/22 08:00 FiO2 21 05/19/22 20:23 Intake & Output 05/19/22 05/20/22 05/20/22 18:59 06:59 18:59 Intake Total 0 237 480 Output Total 200 Balance 0 37 480 Weight 79.5 kg Intake: Oral 0 237 480 Output: Urine 200 Other: Voiding Method Toilet - Labs CBC & Chem 7: 05/20/22 09:55 05/20/22 09:55
--- NOTE | 2022-05-20 16:13 | P.PN ---
Subjective Progress Note Date: 05/20/22 Principal diagnosis: Severe mitral valve regurgitation, moderate to severe mitral valve stenosis, elevated liver enzymes likely rate related to hepatic congestion, acute on chronic diastolic congestive heart failure and constipation. Past medical history significant for pulmonary hypertension with a recent RVSP 86 mmHg, mild nonobstructive coronary artery disease by heart catheterization to her circumflex coronary artery, hypertension, chronic tobacco abuse although has not smoked in 3 weeks, COPD with a previous pulmonary function test showing an FEV1 of 42% of predicted value with a base volume of 1.04 L, history of SVT, remote history of pneumonia, history of depression and family history of coronary artery disease. The patient was seen and examined in follow-up today 05/20/2022 at her bedside on the cardiac stepdown unit. She denies any complaints of shortness of breath or pain at this time. Oxygen saturations are 95% on room air and she is achieving 1500 mL on her incentive spirometry. She's been up ambulating in her room without difficulty. Her edema to her bilateral lower extremities has improved significantly. Remote telemetry showing normal sinus rhythm heart rate 78 BPM. She continues on Lasix 40 mg IV every 12 hours. Preoperative teaching has been reinforced with the patient and also the importance of continued risk modification including smoking cessation. Objective - Vital Signs Vital signs: Vital Signs Temp 98.2 F 05/20/22 12:04 Pulse 76 05/20/22 12:04 Resp 20 05/20/22 12:04 BP 105/70 05/20/22 12:04 Pulse Ox 96 05/20/22 12:04 FiO2 21 05/19/22 20:23 Intake & Output 05/19/22 05/20/22 05/20/22 18:59 06:59 18:59 Intake Total 0 237 598 Output Total 200 Balance 0 37 598 Weight 79.5 kg 79.5 kg Intake: Oral 0 237 598 Output: Urine 200 Other: Voiding Method Toilet - Exam CONSTITUTIONAL: Sitting up to the bedside edge on the cardiac stepdown unit, appears comfortable, cooperative, no apparent acute distress. HEENT: Neck is supple, no JVD, no lymphadenopathy. RESPIRATORY: Lungs sounds essentially clear throughout, few scattered crackles to her bilateral bases. Diminished to her right lower lobe. Respirations are symmetrical and nonlabored. Currently on room air with oxygen saturations 95%. Able to achieve 8535-2450 mL on their incentive spirometry. Strong cough. CARDIOVASCULAR: Regular rhythm and rate. S1 and S2 present, negative for S3, gallop or murmur. +1 edema to his bilateral lower extremities. No calf pain or tenderness noted. GASTROINTESTINAL: Abdomen soft, nontender, slightly distended. Active bowel sounds present 4 quadrants. Tolerating diet. Passing flatus. No guarding or rigidity. GENITOURINARY: Continues to void. INTEGUMENTARY: Skin is warm and dry with no evidence of clubbing or cyanosis. NEUROLOGIC: Cranial nerves II through XII intact. No focal deficits. MUSKULOSKELETAL: Able to move all extremities, strength equal bilaterally. PSYCHIATRIC: Alert and oriented to person place and time, appropriate affect, intact judgment and insight. - Allied health notes Allied health notes reviewed: nursing - Labs CBC & Chem 7: 05/20/22 09:55 05/20/22 09:55 Labs: Abnormal Lab Results - Last 24 Hours (Table) 05/20/22 05/20/22 Range/Units 09:55 09:55 Hct 47.4 H (34.0-46.0) % Chloride 94 L (98-107) mmol/L Carbon Dioxide 38 H (22-30) mmol/L BUN 18 H (7-17) mg/dL Glucose 123 H (74-99) mg/dL AST 50 H (14-36) U/L ALT 66 H (4-34) U/L Alkaline Phosphatase 222 H (38-126) U/L - Imaging and Cardiology Chest x-ray: report reviewed, image reviewed Assessment and Plan Assessment: 1. Severe mitral valve regurgitation with thickened mitral valve with restricted leaflet mobility 2. Severe pulmonary hypertension with a RSVP 86 mmHg 3. Acute on chronic diastolic heart failure 4. Shortness of breath with lower extremity edema possibly secondary to severe mitral valve regurgitation or congestive heart failure 5. Mild nonobstructive coronary artery disease involving the circumflex coronary artery 6. Abdominal distention, likely secondary to constipation 7. Elevated liver enzymes, likely secondary to congestion from right heart failure 8. History of hypertension 9. COPD with a preoperative FEV1 42% of predicted value with a base volume of 1.04 L 10. History of tobacco dependence, has not smoked for 3 weeks 11. History of depression 12. Remote history of pneumonia 13. Family history of coronary artery disease Plan: 1. Continue to optimize medical management with aspirin, statin and beta vince. 2. Diuretic management per primary care and cardiology recommendations. 3. Continue to record strict inaccurate I's and O's. 4. Continue Dulcolax suppository 10 mg when necessary complaints of constipation. 5. Continue Mupirocin 2% ointment twice a day to each Nare. 6. Encourage use of her incentive spirometry 10 times every hour while awake. 7. Encourage activity, out of bed for all meals. Cardiac rehab has been consulted. 8. Continue to monitor daily labs and chest x-rays. 9. She will be scheduled for mitral valve replacement, possible tricuspid valve repair, exclusion left atrial appendage to be completed on 05/22/[address] Ninfa Montaño. 10. The importance of risk modification including smoking cessation has been reinforced with the patient. 11. Preoperative teaching has been reinforced with the patient. 12. Medical management and other comorbidities per primary care service. 13. We will repeat a transthoracic 2-D echocardiogram today. 14. More recommendations to follow based on patient's clinical course. Time with Patient: Greater than 30
--- NOTE | 2022-05-20 16:30 | P.PN ---
Subjective Progress Note Date: 05/20/22 On today's evaluation of 05/18/2022, the patient is being seen for a follow-up. She was seen in consultation yesterday. The patient is still comfortable. She is alert and oriented 3. She continues to diabetes and the patient is receiving Lasix 40 mg IV every 12 hours. Her BUN is stable at 60 with 0.6. Her Sodium Is at 139 with a Potassium Level of 3.4 and the Patient Is in a Negative Fluid Balance. The Patient Is Overall Improving. Repeat ProBNP Level Was 1700. She Is Ambulating. She Is Using the Incentive Spirometer. Pulse Ox on Room Air Is around 95%. She Denies Having Any Chest Pain. She Denies Having Any Other Complaints. She Is Afebrile. No Other Issues Otherwise for Now. 2021, the patient remains in negative fluid balance as the patient is receiving Lasix 40 mg every 12 hours. Fluid balance was -1140 yesterday. In terms of her lungs work, the patient has a stable BUN of 25 with a creatinine of 0.7. Sodium is at 138. Potassium level was replaced and currently is up to 4.1. The white cell count at 7.1 with a hemoglobin of 14.1. The patient is currently on room air oxygen and she is carrying a pulse ox of 94%. She is ambulating. No chest pain. No extremity edema is improved. The patient is looking forward for surgery and we don't have the final date yet. The patient is seen today 05/20/2022 in follow-up on the selective care unit. She is sitting up at the bedside. Awake and alert in no acute distress. No worsening shortness of breath, cough or congestion. She is maintaining good O2 saturations in the 90s on room air. Chest x-ray showing improvement. The plan is for possible mitral valve replacement/repair on 05/22/2022. She is continued on a IV Lasix. Currently in a -1.7 L balance. Heparin for DVT prophylaxis. NicoDerm patch in place. Objective - Vital Signs Vital signs: Vital Signs Temp 98.2 F 05/20/22 12:04 Pulse 76 05/20/22 12:04 Resp 20 05/20/22 12:04 BP 105/70 05/20/22 12:04 Pulse Ox 96 05/20/22 12:04 FiO2 21 05/19/22 20:23 Intake & Output 05/19/22 05/20/22 05/20/22 18:59 06:59 18:59 Intake Total 0 237 598 Output Total 200 Balance 0 37 598 Weight 79.5 kg 79.5 kg Intake: Oral 0 237 598 Output: Urine 200 Other: Voiding Method Toilet - Exam CONSTITUTIONAL: Alert, very pleasant 61-year-old female, on room air, appears comfortable, cooperative, no apparent acute distress. HEENT: Neck is supple, no JVD, no lymphadenopathy. RESPIRATORY: Lungs sounds essentially clear throughout, few scattered crackles to her bilateral bases. Diminished to her right lower lobe. Respirations are symmetrical and nonlabored. Currently on room air. Able to achieve 1000 mL on their incentive spirometry. Strong cough. CARDIOVASCULAR: Regular rhythm and rate. S1 and S2 present, negative for S3, gallop or murmur. +1 edema to his bilateral lower extremities. No calf pain or tenderness noted. GASTROINTESTINAL: Abdomen soft, nontender, slightly distended. Active bowel sounds present 4 quadrants. Tolerating diet. Passing flatus. No guarding or rigidity. GENITOURINARY: Continues to void. INTEGUMENTARY: Skin is warm and dry with no evidence of clubbing or cyanosis. NEUROLOGIC: Cranial nerves II through XII intact. No focal deficits. MUSKULOSKELETAL: Able to move all extremities, strength equal bilaterally. PSYCHIATRIC: Alert and oriented to person place and time, appropriate affect, intact judgment and insight. - Labs CBC & Chem 7: 05/20/22 09:55 05/20/22 09:55 Labs: Abnormal Lab Results - Last 24 Hours (Table) 05/20/22 05/20/22 Range/Units 09:55 09:55 Hct 47.4 H (34.0-46.0) % Chloride 94 L (98-107) mmol/L Carbon Dioxide 38 H (22-30) mmol/L BUN 18 H (7-17) mg/dL Glucose 123 H (74-99) mg/dL AST 50 H (14-36) U/L ALT 66 H (4-34) U/L Alkaline Phosphatase 222 H (38-126) U/L Assessment and Plan Assessment: Acute CHF secondary to severe mitral regurgitation/stenosis and decompensated heart failure. The patient is being considered for valve surgery/ replacement/repair on 05/22/2022. Acute fluid overload secondary to above, improving with diuresis and the patient remains on Lasix 40 mg IV every 12 hours. The patient is also on potassium replacement 20 mEq daily basis. Severe mitral valve regurgitation/stenosis with secondary pulmonary hypertension Shortness of breath secondary to above Acute hypoxic respiratory failure secondary to above, improving Right-sided pleural effusion, small, secondary to above Nonocclusive coronary artery disease Lower extremity edema secondary to above Hypertension Depression Hyperlipidemia Adequate performance of functional status Smoker Plan: The patient was seen and evaluated Chest x-ray, medications and labs reviewed Currently stable and on room air Plan is for surgery possibly 05/22/2022 We will continue to follow I have personally seen and examined the patient, performed the documentation and the assessment and plan as written. Number of minutes spent on the visit: 10.
[2022-05-21] MEDS: PANTOPRAZOLE 40 MG TABLET PO SCH (06:32)
[2022-05-21] MEDS: HEPARIN SODIUM,PORCINE/PF 5,000 UNIT/0.5 ML SYRINGE SQ SCH ×3 (06:32→21:32)
[2022-05-21] MEDS: METOPROLOL TARTRATE 25 MG TAB PO SCH ×2 (07:54→21:34)
[2022-05-21] MEDS: FUROSEMIDE 10 MG/ML 4 ML VIAL IV SCH ×2 (07:54→21:34)
[2022-05-21] MEDS: ATORVASTATIN 20 MG TAB PO SCH (07:54)
[2022-05-21] MEDS: CITALOPRAM HYDROBROMIDE 20 MG TAB PO SCH ×2 (07:54→21:34)
[2022-05-21] MEDS: SENNOSIDES 8.6 MG TAB PO SCH (07:54)
[2022-05-21] MEDS: ASPIRIN 81 MG PO SCH (07:54)
[2022-05-21] MEDS: POTASSIUM CHLORIDE ER 20 MEQ TAB.ER PO SCH (07:54)
[2022-05-21] MEDS: HYDROcodone/APAP 7.5-325MG 1 EACH TAB PO PRN (07:55)
[2022-05-21] MEDS: polyethylene glycoL 3350 17 GM POWD.PACK PO SCH (07:55)
[2022-05-21] MEDS: MUPIROCIN 2% OINT 22 GM TUBE TOPICAL SCH ×2 (07:56→21:35)
[2022-05-21 09:32] LABS: African American GFR (CKD) >90 (>60 ml/min/1.73 sqM); Anion Gap 9 mmol/L; Blood Urea Nitrogen 18 mg/dL (7-17); Calcium 9.2 mg/dL (8.4-10.2); Carbon Dioxide 37 mmol/L (22-30); Chloride 93 mmol/L (98-107); Glucose 119 mg/dL (74-99); Magnesium 2.1 mg/dL (1.6-2.3); Non-African American GFR(CKD) 82 (>60 ml/min/1.73 sqM); Sodium 139 mmol/L (137-145)
[2022-05-21] MEDS ORDERED: MD COMMUNICATION TO PHARMACY 1 EACH MISC PO ONE ×4 (09:44→09:45)
[2022-05-21] MEDS ORDERED: PHENYLEPHRINE 10 MG/ML VIAL IV ONE (09:45)
--- NOTE | 2022-05-21 09:59 | P.PN ---
Subjective Progress Note Date: 05/21/22 Principal diagnosis: Severe mitral valve regurgitation, moderate to severe mitral valve stenosis, elevated liver enzymes likely rate related to hepatic congestion, acute on chronic diastolic congestive heart failure and constipation. Past medical history significant for pulmonary hypertension with a recent RVSP 86 mmHg, mild nonobstructive coronary artery disease by heart catheterization to her circumflex coronary artery, hypertension, chronic tobacco abuse although has not smoked in 3 weeks, COPD with a previous pulmonary function test showing an FEV1 of 42% of predicted value with a base volume of 1.04 L, history of SVT, remote history of pneumonia, history of depression and family history of coronary artery disease. The patient was seen and examined in follow-up today 05/21/2000 at her bedside on the cardiac stepdown unit. Currently she is up ambulating in her room, is awake, alert, oriented 3 and is in no acute apparent distress. She reports she continues to feel better on a daily basis in regards to her breathing and feels her swelling in her legs are much better than when she was admitted. Oxygen saturations are 96% on room air and she continues to achieve around 2000 mL on her incentive spirometry. The patient is scheduled for mitral valve replac ement, possible tricuspid valve replacement, exclusion of left atrial appendage and intraoperative transesophageal echocardiogram to be completed by Dr. Ninfa Montaño tomorrow 05/22/2022. Preoperative teaching has been reviewed and reinforced with the patient's and her questions have been answered. The STS risk score has been discussed with the patient. Remote telemetry showing normal sinus rhythm heart rate 85 BPM. She remains hemodynamically stable and is currently on no inotropic pressor support. She denies any complaints of pain at this time. Laboratory results today show a sodium of 139, potassium 4.0, chloride 93, CO2 37, BUN 18, creatinine 0.79, glucose 119, calcium 9.2 and magne sium 2.1. Transthoracic 2-D echocardiogram has been completed with results pending. Objective - Vital Signs Vital signs: Vital Signs Temp 97.5 F L 05/21/22 07:37 Pulse 84 05/21/22 07:38 Resp 18 05/21/22 07:38 BP 120/75 05/21/22 07:37 Pulse Ox 94 L 05/21/22 07:37 FiO2 21 05/19/22 20:23 Intake & Output 11/05/21/22 05/21/22 18:59 06:59 18:59 Intake Total 820 240 10 Balance 820 240 10 Weight 79.5 kg 80 kg Intake: IV 0 10 0.9 0 Invasive Line 2 10 Oral 820 240 Other: Voiding Method Toilet # Voids 3 2 # Bowel Movements 1 - Exam CONSTITUTIONAL: appears comfortable, cooperative, no apparent acute distress. HEENT: Neck is supple, no JVD, no lymphadenopathy. RESPIRATORY: Lungs sounds essentially clear throughout, Diminished to her bilateral bases, right greater than left. Respirations are symmetrical and nonlabored. Currently on room air with oxygen saturations 96%. Able to achieve 2000 mL on their incentive spirometry. Strong cough. CARDIOVASCULAR: Regular rhythm and rate. S1 and S2 present, negative for S3, gallop or murmur. +1 edema to his bilateral lower extremities. No calf pain or tenderness noted. GASTROINTESTINAL: Abdomen soft, nontender, slightly distended. Active bowel sounds present 4 quadrants. Tolerating diet. Passing flatus. No guarding or rigidity. GENITOURINARY: Continues to void. INTEGUMENTARY: Skin is warm and dry with no evidence of clubbing or cyanosis. NEUROLOGIC: Cranial nerves II through XII intact. No focal deficits. MUSKULOSKELETAL: Able to move all extremities, strength equal bilaterally. PSYCHIATRIC: Alert and oriented to person place and time, appropriate affect, intact judgment and insight. - Allied health notes Allied health notes reviewed: nursing - Labs CBC & Chem 7: 05/20/22 09:55 05/21/22 08:48 Labs: Abnormal Lab Results - Last 24 Hours (Table) 05/20/22 05/20/22 05/21/22 Range/Units 09:55 09:55 08:48 Hct 47.4 H (34.0-46.0) % Chloride 94 L 93 L (98-107) mmol/L Carbon Dioxide 38 H 37 H (22-30) mmol/L BUN 18 H 18 H (7-17) mg/dL Glucose 123 H 119 H (74-99) mg/dL AST 50 H (14-36) U/L ALT 66 H (4-34) U/L Alkaline Phosphatase 222 H (38-126) U/L Assessment and Plan Assessment: 1. Severe mitral valve regurgitation with thickened mitral valve with restricted leaflet mobility 2. Severe pulmonary hypertension with a RSVP 86 mmHg 3. Acute on chronic diastolic heart failure 4. Shortness of breath with lower extremity edema possibly secondary to severe mitral valve regurgitation or congestive heart failure 5. Mild nonobstructive coronary artery disease involving the circumflex coronary artery 6. Abdominal distention, likely secondary to constipation 7. Elevated liver enzymes, likely secondary to congestion from right heart failure 8. History of hypertension 9. COPD with a preoperative FEV1 42% of predicted value with a base volume of 1.04 L 10. History of tobacco dependence, has not smoked for 3 weeks 11. History of depression 12. Remote history of pneumonia 13. Family history of coronary artery disease Plan: 1. Continue to optimize medical management with aspirin, statin and beta vince. 2. Diuretic management per primary care and cardiology recommendations. 3. Continue to record strict inaccurate I's and O's. 4. Continue Dulcolax suppository 10 mg when necessary complaints of constipation. 5. Continue Mupirocin 2% ointment twice a day to each Nare. 6. Encourage use of her incentive spirometry 10 times every hour while awake. 7. Encourage activity, out of bed for all meals. Cardiac rehab has been following. 8. The patient will be made nothing by mouth after midnight. 9. She will be scheduled for mitral valve replacement, possible tricuspid valve repair, exclusion left atrial appendage, intraoperative transesophageal echocardiogram to be completed tomorrow 05/22/[address] Ninfa love. 10. The importance of risk modification including smoking cessation has been reinforced with the patient. 11. Preoperative teaching has been reinforced with the patient. 12. Medical management and other comorbidities per primary care service. 13. Transthoracic 2-D echocardiogram results remain pending. 14. More recommendations to follow based on patient's clinical course. Time with Patient: Greater than 30
[2022-05-21 11:18] LABS: INR 0.9 (<1.2); Partial Thromboplastin Time 25.3 sec (22.0-30.0)
[2022-05-21] MEDS ORDERED: ACETAMINOPHEN TAB 325 MG TAB PO PRN (12:15)
--- NOTE | 2022-05-21 12:22 | CA ---
Transthoracic Echo Report Name: Annetta Dueñas Age: 61 Gender: F : 1960 Exam Date: 05/21/2022 08:06 Exam Location: [facility] Ht (in): 63 Wt (lb): 176 Ordering Physician: Kevin Wick Attending/Referring Phys: Delano GONZALES Acetaldehyde Converter Operator Madison Slade, RUDY Procedure CPT: Indications: Evaluate mitral valve and tricuspid valve Cardiac Hx: Technical Quality: Good Contrast 1: Total Dose (mL): Contrast 2: Total Dose (mL): MEASUREMENTS (Male / Female) Normal Values 2D ECHO LV Diastolic Diameter PLAX 4.2 cm 4.2 - 5.9 / 3.9 - 5.3 cm LV Systolic Diameter PLAX 2.8 cm IVS Diastolic Thickness 1.1 cm 0.6 - 1.0 / 0.6 - 0.9 cm LVPW Diastolic Thickness 1.1 cm 0.6 - 1.0 / 0.6 - 0.9 cm LV Relative Wall Thickness 0.5 RV Internal Dim ED PLAX 3.3 cm LA Systolic Diameter LX 3.9 cm 3.0 - 4.0 / 2.7 - 3.8 cm LV Diastolic Volume MOD 4C 100.3 cm??? LV Systolic Volume MOD 4C 43.7 cm??? LV Ejection Fraction MOD 4C 56.4 % LV Diastolic Length 4C 7.9 cm LV Systolic Length 4C 6.7 cm LV Diastolic Volume MOD 2C 41.6 cm??? LV Systolic Volume MOD 2C 20.9 cm??? LV Ejection Fraction MOD 2C 49.8 % LV Diastolic Length 2C 6.6 cm LV Systolic Length 2C 5.7 cm LA Volume 54.5 cm??? 18 - 58 / 22 - 52 cm??? M-MODE Aortic Root Diameter MM 3.0 cm MV E Point Septal Separation 0.5 cm AV Cusp Separation MM 2.0 cm DOPPLER AV Peak Velocity 117.3 cm/s AV Peak Gradient 5.5 mmHg MV Peak Velocity 299.9 cm/s MV Peak Gradient 36.0 mmHg MV Mean Velocity 198.5 cm/s MV Mean Gradient 17.8 mmHg MV Velocity Time Integral 80.3 cm MV Area PHT 2.0 cm??? MR Peak Velocity 540.5 cm/s MR Peak Gradient 116.9 mmHg Mitral E Point Velocity 289.0 cm/s Mitral A Point Velocity 232.4 cm/s Mitral E to A Ratio 1.2 MV Deceleration Time 376.0 ms MV E' Velocity 5.2 cm/s Mitral E to MV E' Ratio 55.7 TV Peak Velocity 268.8 cm/s TR Peak Velocity 440.0 cm/s TR Peak Gradient 77.4 mmHg Right Ventricular Systolic Press 79.8 mmHg PV Peak Velocity 99.4 cm/s PV Peak Gradient 4.0 mmHg PI Peak Gradient 35.5 mmHg FINDINGS Left Ventricle Left ventricular ejection fraction is estimated at 55-60%. Left ventricular cavity size normal. Mildly increased septal wall thickness. Mildly increased posterior wall thickness. Right Ventricle Moderate right ventricular dilatation. Severe pulmonary hypertension. Right ventricular systolic pressure estimated at 80 mm hg. Right Atrium Normal right atrial size. Left Atrium Mildly increased left atrial diameter. Mildly increased left atrial volume. Mildly increased left atrial area. Mitral Valve Moderate thickening/calcification of the anterior mitral valve leaflet. Moderate thickening/calcification of the posterior mitral valve leaflet. Moderate mitral annular calcification. Moderate mitral stenosis with mean gradient of 12 mm/Hg Aortic Valve Trileaflet aortic valve. Thickened aortic valve without stenosis. Tricuspid Valve Rheumatic tricuspid valve. Moderate tricuspid regurgitation. Pulmonic Valve Structurally normal pulmonic valve. [id number] pulmonic regurgitation. Pericardium Normal pericardium. No pericardial effusion. Aorta Normal size aortic root and proximal ascending aorta. CONCLUSIONS Normal LV size and systolic function. Right ventricular enlargement is noted. There is mitral annular calcification with restriction and thickening of mitral valve leaflet suggestive of calcified mitral stenosis. Stenosis is moderate but there is moderate to severe pulmonary hypertension. Would recommend transesophageal echo to better assess the mitral valve Previewed by: Dr. Natalie Price MD (Electronically Signed) Final Date: 21 May 2022 12:21
--- NOTE | 2022-05-21 14:26 | P.PN ---
Subjective Progress Note Date: 05/21/22 HISTORY OF PRESENTING ILLNESS Patient is a pleasant 61-year-old female with history of severe mitral regur gitation, moderate to severe mitral stenosis, mild mitral annular calcification, severe pulmonary hypertension with RVSP 86, diastolic heart failure, mild nonobstructive coronary artery disease, SVT, hypertension, tobacco abuse, depression. She follows with Dr. Sims. She has been worked up for her mitral stenosis as well as regurgitation and had recent heart catheterization which showed mild disease and right heart catheterization which showed severe mitral stenosis and elevated pressures. DENISE demonstrated thickened mitral valve with restricted leaflet movement severely dilated left atrium. She was seen at cardiothoracic surgery office however still having significant dyspnea and therefore recommended to be evaluated in the hospital. She was started on Lasix and admits to feeling somewhat better after receiving IV Lasix. She has been having frequent chest pain with minimal exertion. EKG shows sinus rhythm, normal axis, nonspecific minimal ST depressions. Blood work shows d-dimer 3.2, creatinine 0.6, proBNP 3800, troponin normal 1. AST 132, ALT 158, total bilirubin 1.4. Chest CTA showed no PE. 05/17 Patient seen and examined. Patient denies any chest pain or pressure. States her breathing is somewhat better. Has been diuresing well. States she did go for a brief walk and starting to feel somewhat better. 05/18 Patient seen and examined. Patient still with good urine output. -3 L over the last 24 hours. Still with some mild dyspnea. BUN 16, creatinine 0.6, potassium 3.4. 05/19 Patient seen and examined. SOB is stable. Some atypical chest pain with abraham cathy forward. Walking to the bathroom without difficulty. 05/20 Patient denies having any chest pain. She states she is short of breath with minimal activity which is normal for her. She is still waiting for scheduled time for her mitral valve surgery. She is on Lasix 40 mg IV every 12 hours. Chest x-ray reveals chronic changes. alliances consultant has been a sinus rhythm running between the 70s and low 100s. BUN 18 and creatinine 0.72, potassium 3.7. On the day 05/21 Patient is seen and examined. She is scheduled tomorrow for mitral valve replacement and possible tricuspid valve repair. She states she is a little anxious today. She denies chest pain, dyspnea is at her baseline. Heart rate is in the 80s, blood pressure 116/75. alliances consultant sinus rhythm. EXAMINATION Vital signs reviewed. CONSTITUTIONAL: No apparent distress. HEENT: Head is normocephalic. Pupils are equal, round. Sclerae anicteric. Mucous membranes of the mouth are moist. No JVD. No carotid bruit. CHEST EXAMINATION: +Crackles at bases HEART EXAMINATION: Regular rate and rhythm. S1, S2 heard. +3/6 systolic murmur, no gallops or rub. ABDOMEN: Soft, nontender. Positive bowel sounds. EXTREMITIES: 2+ peripheral pulses, no lower extremity edema and no calf tenderness. NEUROLOGIC EXAMINATION: Patient is awake, alert and oriented x3. ASSESSMENT 1. Acute on chronic diastolic heart failure 2. Severe mitral regurgitation 3. Moderate to severe mitral stenosis 4. Pulmonary hypertension RVSP 86 related to left-sided heart failure 5. Mild nonobstructive CAD by heart catheterization 6. Elevated liver enzymes likely related to hepatic congestion 7. Hypertension 8. History of tobacco abuse PLAN Continue with current diuretics, appears to be improving. Mitral valve replacement and possible tricuspid valve repair scheduled for tomorrow Monitor creatinine closely. Further recommendations to follow. Nurse practitioner note has been reviewed, I agree with documented findings and plan of care. Patient was seen and examined. Objective - Vital Signs Vital signs: Vital Signs Temp 97.5 F L 05/21/22 07:37 Pulse 84 05/21/22 07:38 Resp 18 05/21/22 07:38 BP 120/75 05/21/22 07:37 Pulse Ox 94 L 05/21/22 07:37 FiO2 21 05/19/22 20:23 Intake & Output 05/20/22 05/21/22 05/21/22 18:59 06:59 18:59 Intake Total 820 240 128 Balance 820 240 128 Weight 79.5 kg 80 kg Intake: IV 0 10 0.9 0 Invasive Line 2 10 Oral 820 240 118 Other: Voiding Method Toilet # Voids 3 2 1 # Bowel Movements 1 - Labs CBC & Chem 7: 05/20/22 09:55 05/21/22 08:48 Labs: Abnormal Lab Results - Last 24 Hours (Table) 05/21/22 Range/Units 08:48 Chloride 93 L (98-107) mmol/L Carbon Dioxide 37 H (22-30) mmol/L BUN 18 H (7-17) mg/dL Glucose 119 H (74-99) mg/dL
--- NOTE | 2022-05-21 15:01 | P.PN ---
Subjective Progress Note Date: 05/21/22 Principal diagnosis: Acute congestive heart failure secondary to severe mitral regurgitation/stenosis On today's evaluation of 05/18/2022, the patient is being seen for a follow-up. She was seen in consultation yesterday. The patient is still comfortable. She is alert and oriented 3. She continues to diabetes and the patient is receiving Lasix 40 mg IV every 12 hours. Her BUN is stable at 60 with 0.6. Her Sodium Is at 139 with a Potassium Level of 3.4 and the Patient Is in a Negative Fluid Balance. The Patient Is Overall Improving. Repeat ProBNP Level Was 1700. She Is Ambulating. She Is Using the Incentive Spirometer. Pulse Ox on Room Air Is around 95%. She Denies Having Any Chest Pain. She Denies Having Any Other Complaints. She Is Afebrile. No Other Issues Otherwise for Now. 27 2021, the patient remains in negative fluid balance as the patient is re ceiving Lasix 40 mg every 12 hours. Fluid balance was -1140 yesterday. In terms of her lungs work, the patient has a stable BUN of 25 with a creatinine of 0.7. Sodium is at 138. Potassium level was replaced and currently is up to 4.1. The white cell count at 7.1 with a hemoglobin of 14.1. The patient is currently on room air oxygen and she is carrying a pulse ox of 94%. She is ambulating. No chest pain. No extremity edema is improved. The patient is looking forward for surgery and we don't have the final date yet. The patient is seen today 05/20/2022 in follow-up on the selective care unit. She is sitting up at the bedside. Awake and alert in no acute distress. No worsening shortness of breath, cough or congestion. She is maintaining good O2 saturations in the 90s on room air. Chest x-ray showing improvement. The plan is for possible mitral valve replacement/repair on 05/22/2022. She is continued on a IV Lasix. Currently in a -1.7 L balance. Heparin for DVT prophylaxis. NicoDerm patch in place. Reevaluated today on , patient is scheduled to have surgery tomorrow. She will have mitral valve replacement/repair and this is again scheduled to be done tomorrow. Patient is doing well, no cough no wheezing no shortness of breath. She is on room air, O2 sats is 97%. Labs from today including a basic metabolic profile were unremarkable renal profile is normal. Objective - Vital Signs Vital signs: Vital Signs Temp 98.0 F 05/21/22 11:24 Pulse 84 05/21/22 13:10 Resp 18 05/21/22 13:10 BP 116/75 05/21/22 11:24 Pulse Ox 97 05/21/22 11:24 FiO2 21 05/19/22 20:23 Intake & Output 05/20/22 05/21/22 05/21/22 18:59 06:59 18:59 Intake Total 820 240 418 Balance 820 240 418 Weight 79.5 kg 80 kg Intake: IV 0 30 0.9 0 Invasive Line 2 20 Invasive Line 3 10 Oral 820 240 388 Other: Voiding Method Toilet # Voids 3 2 1 # Bowel Movements 1 - Exam Physical Exam: Revealed a very pleasant 61-year-old female in no distress. Head: Atraumatic, normocephalic. HEENT:[Neck is supple.] [No neck masses.] [No thyromegaly.] [No JVD.] Chest: [Diminished breath sounds at the bases no crackles or rhonchi or wheezes] Cardiac Exam: [Normal S1 and S2, no S3 gallop, 2/6 systolic murmur thought the precordium. Abdomen: [Soft, nontender, no megaly, no rebound, no guarding, normal bowel sounds.] Extremities: [No clubbing, no edema, no cyanosis.] Neurological Exam: [No focal neurologic deficit.] Alert oriented 3. Psychiatric: Normal mood affect and normal mental status examination. Skin: No rashes. Musculoskeletal: No deformities and no limitation in range of motion - Labs CBC & Chem 7: 05/20/22 09:55 05/21/22 08:48 Labs: Abnormal Lab Results - Last 24 Hours (Table) 05/21/22 05/21/22 Range/Units 08:48 10:38 Chloride 93 L (98-107) mmol/L Carbon Dioxide 37 H (22-30) mmol/L BUN 18 H (7-17) mg/dL Glucose 119 H (74-99) mg/dL Crossmatch See Detail Assessment and Plan Assessment: Acute CHF secondary to severe mitral regurgitation/stenosis and decompensated heart failure. The patient is being considered for valve surgery/replacement/repair on 05/22/2022. Acute fluid overload secondary to above, improving with diuresis and the patient remains on Lasix 40 mg IV every 12 hours. The patient is also on potassium replacement 20 mEq daily basis. Severe mitral valve regurgitation/stenosis with secondary pulmonary hypertension Acute hypoxic respiratory failure secondary to above, improving Right-sided pleural effusion, small, secondary to above Nonocclusive coronary artery disease Lower extremity edema secondary to above Hypertension Depression Hyperlipidemia dequate performance of functional status Smoker Recommendation: Continue present treatment plan Continue plans for surgery/as scheduled tomorrow. Incentive spirometry and instructed to use. We will continue to follow. Time with Patient: Less than 30
--- NOTE | 2022-05-21 15:22 | P.PN ---
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 The patient was recently admitted to the hospital from 04/25-04/27 for similar complaints, at which time she was diagnosed with the above mitral valve disease. The patient was advised to follow-up as an outpatient for an elective mitral valve repair/replacement with cardiothoracic surgery. Upon arrival at the emergency room vital signs were within normal limits. Chest CTA revealed no evidence of PE with a right pleural effusion. EKG revealed sinus tachycardia with PVCs at [address] bpm with no notable ST/T-wave changes noted as reviewed by me. Laboratory evaluation was remarkable for troponin of less than 0.012, proBNP 3870, AST 132, ALT 158, and alk phos 232 with a total bilirubin 1.4. She was admitted for acute exacerbation of right- sided heart failure in the setting of severe mitral valve disease. She was started on IV diuresis and cardiology was consulted. Cardiovascular surgery was also consulted. They ultimately recommended early intervention and plan is for surgery sometime this week. Patient seen and examined at bedside. No chest pain, breathing is better than at admission but unchanged from yesterday. She reports anxiety due to her scheduled surgery tomorrow. No nausea, no vomiting, no chest pain. General: nontoxic, no distress, appears at stated age Derm: warm, dry Head: atraumatic, normocephalic, symmetric Eyes: EOMI, no lid lag, anicteric sclera Mouth: no lip lesion, mucus membranes moist Cardiovascular: S1S2 reg, with murmur Lungs: Decreased bs bilateral, no rhonchi, no rales , no accessory muscle use Ext: no gross muscle atrophy, trace edema, no contractures Neuro: no focal neuro deficits Psych: Alert, oriented, appropriate affect #Acute exacerbation of right-sided heart failure, cor pulmonale in the setting of severe mitral valve disease #Severe mitral regurgitation with moderate to severe stenosis #Severe pulmonary hypertension #Nonobstructive coronary artery disease #Hypertension -Cardiothoracic surgery on board. Plan is for surgery 05/22. -IV Lasix -Aspirin, statin, beta vince -Strict I's and O's, daily weights #Constipation -Continue with bowel regiment #Transaminitis secondary to hepatic congestion -Improving with diuresis -Continue to monitor Acute hypoxic respiratory failure, resolved Objective - Vital Signs Vital signs: Vital Signs Temp 98.0 F 05/21/22 11:24 Pulse 84 05/21/22 13:10 Resp 18 05/21/22 13:10 BP 116/75 05/21/22 11:24 Pulse Ox 97 05/21/22 11:24 FiO2 21 05/19/22 20:23 Intake & Output 05/20/22 05/21/22 05/21/22 18:59 06:59 18:59 Intake Total 820 240 418 Balance 820 240 418 Weight 79.5 kg 80 kg Intake: IV 0 30 0.9 0 Invasive Line 2 20 Invasive Line 3 10 Oral 820 240 388 Other: Voiding Method Toilet # Voids 3 2 1 # Bowel Movements 1 - Labs CBC & Chem 7: 05/20/22 09:55 05/21/22 08:48 Labs: Abnormal Lab Results - Last 24 Hours (Table) 05/21/22 05/21/22 Range/Units 08:48 10:38 Chloride 93 L (98-107) mmol/L Carbon Dioxide 37 H (22-30) mmol/L BUN 18 H (7-17) mg/dL Glucose 119 H (74-99) mg/dL Crossmatch See Detail
[2022-05-22] MEDS ORDERED: PROTAMINE SULFATE 10 MG/ML 25 ML VIAL IV ONE ×2 (05:00→07:51)
[2022-05-22] MEDS ORDERED: ALBUMIN HUMAN 25% 50 ML in EMPTY BAG 1 BAG IVPB ONE (05:00)
[2022-05-22] MEDS ORDERED: NOREPINEPHRINE 4 MG in SODIUM CHLORIDE 0.9% 250 ML IV SCH (05:00)
[2022-05-22] MEDS ORDERED: PHENYLEPHRINE 40 MG in SODIUM CHLORIDE 0.9% 250 ML IV ONE (05:00)
[2022-05-22] MEDS ORDERED: CALCIUM CHLORIDE 100 MG/ML 10 ML SYRINGE IVP ONE (05:00)
[2022-05-22] MEDS ORDERED: MANNITOL 25% 12.5 GM/50 ML VIAL IV ONE ×2 (05:00)
[2022-05-22] MEDS ORDERED: HEPARIN SODIUM 1,000 UN/ML (10ML VL) IV ONE (05:00)
[2022-05-22] MEDS ORDERED: ceFAZolin 1,000 MG in SODIUM CHLORIDE 0.9% IRRIGATIO 1,000 ML IRRIGATION ONE (05:00)
[2022-05-22] MEDS ORDERED: METOPROLOL TARTRATE 12.5 MG TAB PO ONE (05:00)
[2022-05-22] MEDS ORDERED: SODIUM BICARB 8.4% 50 ML SYR (1 MEQ/ML) IV ONE (05:00)
[2022-05-22] MEDS ORDERED: TRANEXAMIC ACID 2,000 MG in SODIUM CHLORIDE 0.9% 80 ML IV ONE (05:00)
[2022-05-22] MEDS ORDERED: NITROGLYCERIN-D5W PMX 50 MG in DEXTROSE/WATER 1 250ML.BAG IV SCH ×2 (05:00→13:33)
[2022-05-22] MEDS ORDERED: PROTAMINE SULFATE 250 MG in EMPTY BAG 1 BAG IV ONE (05:00)
[2022-05-22] MEDS ORDERED: CHLORHEXIDINE GLUCONATE 15 ML CUP MUCOUS MEM ONE (05:00)
[2022-05-22] MEDS ORDERED: ASPIRIN 325 MG TAB PO ONE (05:00)
[2022-05-22] MEDS ORDERED: HEPARIN SODIUM,PORCINE 5,000 UNIT in SODIUM CHLORIDE 0.9% 500 ML 500 ML IV ONE (05:00)
[2022-05-22] MEDS ORDERED: ALBUMIN HUMAN 5% 500 ML in EMPTY BAG 1 BAG IVPB ONE ×6 (05:00)
[2022-05-22] MEDS ORDERED: ATORVASTATIN 10 MG TAB PO ONE (05:00)
[2022-05-22] MEDS ORDERED: NITROGLYCERIN-D5W PMX 25 MG/250 ML BTL IV ONE (05:00)
[2022-05-22] MEDS ORDERED: MAGNESIUM SULFATE 16.24 MEQ in EMPTY SYRINGE 1 SYR IV ONE (05:00)
[2022-05-22] MEDS ORDERED: INSULIN REGULAR 100 UNIT in SODIUM CHLORIDE 0.9% 100 ML IV SCH (06:00)
[2022-05-22] MEDS ORDERED: ELECTROLYTE-A SOLUTION 1,000 ML with POTASSIUM CHLORIDE 40 MEQ, MAGNESIUM SULFATE 16 ME... IV SCH ×5 (06:00)
[2022-05-22] MEDS ORDERED: ELECTROLYTE-A SOLUTION 1,000 ML with POTASSIUM CHLORIDE 100 MEQ, MAGNESIUM SULFATE 16 M... IV SCH ×5 (06:00)
[2022-05-22 06:38] LABS: Glucose,Whole Blood 128 mg/dL (70-110)
[2022-05-22] MEDS ORDERED: LACTATED RINGERS 1,000 ML IV ONE (06:43)
[2022-05-22] MEDS ORDERED: PROPOFOL 10 MG/ML 20 ML VIAL IV ONE (07:51)
[2022-05-22] MEDS ORDERED: VECURONIUM 10 MG VIAL IV ONE (07:51)
[2022-05-22] MEDS ORDERED: MAGNESIUM SULFATE 4 MEQ/ML 10ML VIAL ONE (07:51)
[2022-05-22] MEDS ORDERED: ceFAZolin 1,000 MG VIAL ONE (07:51)
[2022-05-22] MEDS ORDERED: PHENYLEPHRINE-0.9% NACL SYG 1,000 MCG/10 ML SYRINGE ONE (07:51)
[2022-05-22] MEDS ORDERED: SODIUM CHLORIDE 0.9% 100 ML BAG ONE (07:51)
[2022-05-22] MEDS ORDERED: fentaNYL (PF) 50 MCG/ML 50 ML VIAL ONE (07:51)
[2022-05-22] MEDS ORDERED: CALCIUM CHLORIDE 100 MG/ML 10 ML SYRINGE ONE (07:51)
[2022-05-22] MEDS ORDERED: MIDAZOLAM HCL 10 MG/10 ML VIAL ONE (07:51)
[2022-05-22] MEDS ORDERED: SODIUM CHLORIDE 0.9% IRRIG 1,000 ML BTL IRRIGATION ONE (07:51)
[2022-05-22] MEDS ORDERED: HEPARIN SODIUM,PORCINE 10,000 UNIT/ML 1 ML VIAL ONE (07:51)
[2022-05-22] MEDS ORDERED: LIDOCAINE 2% SYG (PF) 100 MG/5 ML ONE (07:51)
[2022-05-22] MEDS ORDERED: ELECTROLYTE-R (PH 7.4) 1,000 ML IV.SOLN IV ONE (07:51)
[2022-05-22] MEDS ORDERED: TRANEXAMIC ACID IN NACL,ISO-OS 1,000 MG/100 ML BAG ONE (07:51)
[2022-05-22 08:34] LABS: ABG Base Excess 5.4 mmol/L; ABG Glucose Whole Blood 120 mg/dL (75-99); ABG HCO3 32 mmol/L (21-25); ABG Hematocrit 43 % (34.0-46.0); ABG Ionized Calcium 4.7 mg/dL (4.5-5.3); ABG Lactic Acid Whole Blood 1.2 mmol/L (0.5-1.6); ABG PCO2 55 mmHg (35-45); ABG PH 7.38 (7.35-7.45); ABG Potassium Whole Blood 3.8 mmol/L (3.4-4.5); ABG Sodium Whole Blood 142 mmol/L (135-146); ABG TCO2 34 mmol/L (19-24)
[2022-05-22 09:37] LABS: ABG Base Excess 5.3 mmol/L; ABG Glucose Whole Blood 134 mg/dL (75-99); ABG HCO3 31 mmol/L (21-25); ABG Hematocrit 42 % (34.0-46.0); ABG Ionized Calcium 4.6 mg/dL (4.5-5.3); ABG Lactic Acid Whole Blood 1.4 mmol/L (0.5-1.6); ABG PCO2 47 mmHg (35-45); ABG PH 7.43 (7.35-7.45); ABG Potassium Whole Blood 3.9 mmol/L (3.4-4.5); ABG Sodium Whole Blood 140 mmol/L (135-146); ABG TCO2 32 mmol/L (19-24)
[2022-05-22 10:12] LABS: ABG Base Excess 3.7 mmol/L; ABG Glucose Whole Blood 146 mg/dL (75-99); ABG HCO3 29 mmol/L (21-25); ABG Hematocrit 31 % (34.0-46.0); ABG PCO2 45 mmHg (35-45); ABG PH 7.42 (7.35-7.45); ABG Potassium Whole Blood 3.4 mmol/L (3.4-4.5); ABG Sodium Whole Blood 135 mmol/L (135-146); ABG TCO2 30 mmol/L (19-24)
--- NOTE | 2022-05-22 10:29 | P.ANPRN ---
Procedure Note - Anesthesia - DENISE Intraop Pre Bypass DENISE Intraop - Anesthesia Indication: Pre bypass mitral valve replacement and tricuspid valve replacement Date of Procedure: 05/22/22 Pre-operative Diagnosis: Severe mitral valve stenosis and regurgitation Post-operative Diagnosis: Severe mitral valve stenosis and regurgitation Surgeon: Ninfa Montaño Ejection Fraction: Normal Regional Wall Motion Abnormalities: None Left Ventricle Hypertrophy: No R. Ventricle Function: Normal Anatomy: Trileaflet Aortic Stenosis: None Aortic Regurgitation: None Mitral Valve: mean PG 7, PA annulus 3.5 Mitral Stenosis: Severe Mitral Regurgitation: Severe Tricuspid Stenosis: None Tricuspid Regurgitation: Mild Pulmonic Stenosis: None Pulmonic Regurgitation: None R. Atrial Dilation: No R. Atrial PFO: No L. Atrial Dilation: Yes Aortic Dissection: No Aortic Calcification: None Plural Effusion: None
[2022-05-22 10:45] LABS: ABG Base Excess 5.4 mmol/L; ABG Glucose Whole Blood 146 mg/dL (75-99); ABG HCO3 30 mmol/L (21-25); ABG Hematocrit 28 % (34.0-46.0); ABG Lactic Acid Whole Blood 0.9 mmol/L (0.5-1.6); ABG PCO2 41 mmHg (35-45); ABG PH 7.47 (7.35-7.45); ABG PO2 327 mmHg (83-108); ABG Potassium Whole Blood 4.7 mmol/L (3.4-4.5); ABG Sodium Whole Blood 137 mmol/L (135-146); ABG TCO2 31 mmol/L (19-24)
[2022-05-22 11:17] LABS: ABG Glucose Whole Blood 157 mg/dL (75-99); ABG HCO3 30 mmol/L (21-25); ABG Hematocrit 30 % (34.0-46.0); ABG PCO2 44 mmHg (35-45); ABG PH 7.44 (7.35-7.45); ABG PO2 305 mmHg (83-108); ABG Potassium Whole Blood 4.7 mmol/L (3.4-4.5); ABG Sodium Whole Blood 137 mmol/L (135-146); ABG TCO2 31 mmol/L (19-24)
[2022-05-22 11:51] LABS: ABG Base Excess 2.6 mmol/L; ABG Glucose Whole Blood 162 mg/dL (75-99); ABG HCO3 28 mmol/L (21-25); ABG Hematocrit 27 % (34.0-46.0); ABG Ionized Calcium 5.9 mg/dL (4.5-5.3); ABG PCO2 44 mmHg (35-45); ABG PO2 351 mmHg (83-108); ABG Potassium Whole Blood 4.7 mmol/L (3.4-4.5); ABG Sodium Whole Blood 137 mmol/L (135-146); ABG TCO2 29 mmol/L (19-24)
[2022-05-22] MEDS: CLEVIDIPINE BUTYRATE 25 MG in EMPTY BAG 1 BAG IV SCH ×4 (13:01→20:45)
[2022-05-22] MEDS: HEPARIN SODIUM,PORCINE/PF 5,000 UNIT/0.5 ML SYRINGE SQ SCH ×3 (13:04→23:51)
[2022-05-22 13:06] LABS: ABG Base Excess -0.1 mmol/L; ABG Glucose Whole Blood 160 mg/dL (75-99); ABG HCO3 28 mmol/L (21-25); ABG Hematocrit 38 % (34.0-46.0); ABG Ionized Calcium 4.7 mg/dL (4.5-5.3); ABG Lactic Acid Whole Blood 1.9 mmol/L (0.5-1.6); ABG Oxygen Saturation 94.1 % (94-97); ABG PCO2 59 mmHg (35-45); ABG PH 7.28 (7.35-7.45); ABG PO2 80 mmHg (83-108); ABG Sodium Whole Blood 140 mmol/L (135-146); ABG TCO2 30 mmol/L (19-24)
[2022-05-22] MEDS: ASPIRIN 81 MG PO SCH (13:06)
[2022-05-22] MEDS: PANTOPRAZOLE 40 MG TABLET PO SCH (13:06)
[2022-05-22] MEDS: FUROSEMIDE 10 MG/ML 4 ML VIAL IV SCH (13:07)
[2022-05-22] MEDS: METOPROLOL TARTRATE 25 MG TAB PO SCH (13:07)
[2022-05-22] MEDS: ATORVASTATIN 20 MG TAB PO SCH (13:07)
[2022-05-22] MEDS: CITALOPRAM HYDROBROMIDE 20 MG TAB PO SCH ×2 (13:07→22:01)
--- NOTE | 2022-05-22 13:07 | P.ANPRN ---
Procedure Note - Anesthesia - DENISE Intraop Post Bypass DENISE Intraop Post Bypass Procedure Performed: Post bypass DENISE Ejection Fraction: Normal Regional Wall Motion Abnormalities: None R. Ventricle Function: Normal Aortic Valve: Unchanged Mitral Valve: prosthetic mitral valve, no paravalvular leak, mean PG 3, washing jets functional Tricuspid: prosthetic valve in place. 1+ tricuspid regurg, poor image quality Pulmonic: Unchanged Aortic Dissection: No
[2022-05-22] MEDS: MUPIROCIN 2% OINT 22 GM TUBE TOPICAL SCH (13:08)
[2022-05-22] MEDS: polyethylene glycoL 3350 17 GM POWD.PACK PO SCH (13:08)
[2022-05-22] MEDS: POTASSIUM CHLORIDE ER 20 MEQ TAB.ER PO SCH (13:08)
[2022-05-22] MEDS: SENNOSIDES 8.6 MG TAB PO SCH (13:08)
[2022-05-22 13:16] LABS: ABG PO2 >420 mmHg (83-108)
[2022-05-22 13:17] LABS: ABG PO2 >420 mmHg (83-108)
[2022-05-22 13:17] LABS: ABG PO2 >420 mmHg (83-108)
[2022-05-22] MEDS ORDERED: MORPHINE SULFATE 2 MG/ML SYRINGE IVP PRN (13:33)
[2022-05-22] MEDS ORDERED: hydrALAZINE HCL 20 MG/ML 1 ML VIAL IVP PRN (13:33)
[2022-05-22] MEDS ORDERED: DEXTROSE 50% SYRINGE 50 ML IVP PRN ×2 (13:33)
[2022-05-22] MEDS ORDERED: Magnesium Replacement Protocol 1 EACH MISC MISCELLANE PRN (13:33)
[2022-05-22] MEDS ORDERED: Potassium Replacement Protocol 1 EACH MISC MISCELLANE PRN (13:33)
[2022-05-22] MEDS ORDERED: BENZOCAINE/MENTHOL LOZENG 1 EACH LOZENGE MUCOUS MEM PRN (13:33)
[2022-05-22] MEDS ORDERED: CALCIUM GLUCONATE IN NACL 2 GM in SALINE 1 100ML.BAG IVPB PRN (13:33)
[2022-05-22] MEDS ORDERED: DEXMEDETOMIDINE/0.9% NACL(PMX) 400 MCG in EMPTY BAG 1 BAG IV SCH (13:33)
[2022-05-22] MEDS ORDERED: AMIODARONE 360 MG in DEXTROSE 5% IN WATER 200 ML IV ONE ×2 (13:33)
[2022-05-22] MEDS ORDERED: ALBUMIN HUMAN 5% 250 ML IVPB ONE (13:36)
[2022-05-22 13:40] LABS: Glucose,Whole Blood 159 mg/dL (70-110)
[2022-05-22 13:52] LABS: Basophils % (A) 0 %; Eosinophils # (A) 0.1 k/uL (0-0.7); Eosinophils % (A) 1 %; HCT 37.6 % (34.0-46.0); HGB 12.5 gm/dL (11.4-16.0); Lymphocytes # (A) 0.7 k/uL (1.0-4.8); Lymphocytes % (A) 5 %; MCH 31.4 pg (25.0-35.0); MCHC 33.3 g/dL (31.0-37.0); MCV 94.3 fL (80.0-100.0); Mean Platelet Volume 8.7; Monocytes # (A) 0.6 k/uL (0-1.0); Monocytes % (A) 4 %; Neutrophils # (A) 11.7 k/uL (1.3-7.7); Neutrophils % (A) 89 %; RBC 3.98 m/uL (3.80-5.40); WBC 13.2 k/uL (3.8-10.6)
[2022-05-22 13:53] LABS: Ionized Calcium 4.9 mg/dL (4.5-5.3)
[2022-05-22] MEDS: SODIUM CHLORIDE 0.9% 1,000 ML IV SCH (13:56)
[2022-05-22 13:58] LABS: ABG HCO3 28 mmol/L (21-25); ABG PCO2 57 mmHg (35-45); ABG PH 7.31 (7.35-7.45); ABG PO2 357 mmHg (83-108); ABG TCO2 30 mmol/L (19-24)
--- NOTE | 2022-05-22 13:58 | XR ---
EXAMINATION TYPE: XR chest 1V portable DATE OF EXAM: 05/22/2022 HISTORY: Post Op CABG COMPARISON: NONE TECHNIQUE: Single view of the chest is submitted. FINDINGS: Endotracheal tube, NG tube, SG catheter, left atrial appendage clip appropriately placed. Post operative changes of CABG. No sizeable pneumothorax. Scattered Pleural-parenchymal opacities may reflect atelectasis. The heart is not enlarged. IMPRESSION: 1. Post Operative Cardiac Surgery
[2022-05-22 14:00] LABS: Allen Test Performed? no
[2022-05-22 14:01] LABS: Glucose,Whole Blood 152 mg/dL (70-110)
[2022-05-22 14:01] LABS: Platelet Count 148 k/uL (150-450)
[2022-05-22 14:03] LABS: ALT 28 U/L (4-34); African American GFR (CKD) >90 (>60 ml/min/1.73 sqM); Albumin 2.8 g/dL (3.5-5.0); Anion Gap 4 mmol/L; Blood Urea Nitrogen 20 mg/dL (7-17); Calcium 7.9 mg/dL (8.4-10.2); Carbon Dioxide 28 mmol/L (22-30); Chloride 106 mmol/L (98-107); Glucose 152 mg/dL (74-99); Non-African American GFR(CKD) >90 (>60 ml/min/1.73 sqM); Sodium 138 mmol/L (137-145); Total Bilirubin 0.7 mg/dL (0.2-1.3); Total Protein 4.7 g/dL (6.3-8.2)
[2022-05-22 14:11] LABS: AST 61 U/L (14-36); Alkaline Phosphatase 97 U/L (38-126); Magnesium 3.1 mg/dL (1.6-2.3); Potassium 3.9 mmol/L (3.5-5.1)
[2022-05-22] MEDS: INSULIN REGULAR 100 UNIT in SODIUM CHLORIDE 0.9% 100 ML IV SCH (14:14)
[2022-05-22 14:17] LABS: INR 1.2 (<1.2); Prothrombin Time 11.9 sec (9.0-12.0)
[2022-05-22] MEDS: ALBUMIN HUMAN 5% 250 ML in EMPTY BAG 1 BAG IVPB PRN ×3 (14:19→16:17)
[2022-05-22] MEDS: MILRINONE-D5W PMX 20 MG in DEXTROSE/WATER 1 100ML.BAG IV SCH ×2 (14:22→20:20)
[2022-05-22 14:26] LABS: Partial Thromboplastin Time 111.6 sec (22.0-30.0)
[2022-05-22] MEDS ORDERED: PROTAMINE SULFATE 10 MG/ML 5 ML VIAL IV STA (14:29)
[2022-05-22 14:58] LABS: Glucose,Whole Blood 168 mg/dL (70-110)
--- NOTE | 2022-05-22 15:01 | P.PN ---
Subjective Progress Note Date: 05/22/22 On today's evaluation of 05/18/2022, the patient is being seen for a follow-up. She was seen in consultation yesterday. The patient is still comfortable. She is alert and oriented 3. She continues to diabetes and the patient is receiving Lasix 40 mg IV every 12 hours. Her BUN is stable at 60 with 0.6. Her Sodium Is at 139 with a Potassium Level of 3.4 and the Patient Is in a Negative Fluid Balance. The Patient Is Overall Improving. Repeat ProBNP Level Was 1700. She Is Ambulating. She Is Using the Incentive Spirometer. Pulse Ox on Room Air Is around 95%. She Denies Having Any Chest Pain. She Denies Having Any Other Complaints. She Is Afebrile. No Other Issues Otherwise for Now. 2021, the patient remains in negative fluid balance as the patient is receiving Lasix 40 mg every 12 hours. Fluid balance was -1140 yesterday. In terms of her lungs work, the patient has a stable BUN of 25 with a creatinine of 0.7. Sodium is at 138. Potassium level was replaced and currently is up to 4.1. The white cell count at 7.1 with a hemoglobin of 14.1. The patient is currently on room air oxygen and she is carrying a pulse ox of 94%. She is ambulating. No chest pain. No extremity edema is improved. The patient is looking forward for surgery and we don't have the final date yet. The patient is seen today 05/20/2022 in follow-up on the selective care unit. She is sitting up at the bedside. Awake and alert in no acute distress. No worsening shortness of breath, cough or congestion. She is maintaining good O2 saturations in the 90s on room air. Chest x-ray showing improvement. The plan is for possible mitral valve replacement/repair on 05/22/2022. She is continued on a IV Lasix. Currently in a -1.7 L balance. Heparin for DVT prophylaxis. NicoDerm patch in place. Reevaluated today on patient is scheduled to have surgery tomorrow. She will have mitral valve replacement/repair and this is again scheduled to be done tomorrow. Patient is doing well, no cough no wheezing no shortness of breath. She is on room air, O2 sats is 97%. Labs from today including a basic metabolic profile were unremarkable renal profile is normal. The patient is seen today 05/22/2022 in follow-up in the intensive care unit shortly after her return from the operating room. She did undergo a mitral valve replacement, tricuspid valve repair, exclusion of the left atrial appendage with a 35mm atrial clip. He is currently intubated and on mechanical ventilator. Current settings include assist control mode at a rate of 14, tidal volume 400, FiO2 100%, PEEP of 8. Arterial blood gases revealed a PaO2 of 357, pCO2 57, pH 7.30. The tidal volume was increased to 450. FiO2 decreased to 50%. Chest x-ray reveals endotracheal tube, nasogastric tube, Dundee-Celso juan ter and left atrial appendage clip appropriately placed. Postoperative changes of bypass surgery. No sizable pneumothorax. Mediastinal and right pleural chest tubes are in place. White count 13.2. Hemoglobin 12.5. Platelets 148. INR 1.2. Sodium 138. Potassium 3.9. Bicarb 28. BUN 20. Creatinine 0.63. Glucose 152. AST 61. ALT 28. Protein 2.8. Cardiac output 3.0. Cardiac index 1.6. She is receiving a second unit of albumin. She is on milrinone at 0.25 mcg/kg/m. Propofol at 30 mcg/kg/m. Amiodarone at 1 mg/m. Insulin drip at 1.5 units per hour. Normal saline at 50 MLS per hour. Objective - Vital Signs Vital signs: Vital Signs Temp 96.9 F L 05/22/22 06:10 Pulse 83 05/22/22 06:15 Resp 14 05/22/22 06:15 BP 125/63 05/22/22 06:15 Pulse Ox 94 L 05/22/22 06:15 FiO2 50 05/22/22 14:24 Intake & Output 05/21/22 05/22/22 05/22/22 18:59 06:59 18:59 Intake Total 688 550 52 Output Total 2940 Balance 688 550 -2888 Intake: IV 30 70 52 Invasive Line 2 20 Invasive Line 3 10 20 Oral 658 480 Output: Urine 440 Estimated Blood Loss 2500 Other: Voiding Method Toilet Toilet # Voids 1 2 - Exam GENERAL EXAM: Intubated, sedated 61-year-old female patient, on the mechanical ventilator, appears comfortable in no apparent distress. HEAD: Normocephalic. EYES: Sluggish reaction of pupils, equal size. NOSE: Clear with pink turbinates. THROAT: Oral endotracheal and gastric tube secured in place. No erythema or exudates. NECK: No masses, no JVD. Right IJ Dundee-Celso catheter in place. CHEST: Heart hugger in place. Mediastinal 2, right pleural chest tubes in place to Pleur-evac. Wall suction. LUNGS: Equal air entry with no crackles, wheeze, rhonchi or dullness. CVS: S1 and S2 normal with no audible murmur, regular rhythm. ABDOMEN: No hepatosplenomegaly, no guarding or rigidity. SPINE: No scoliosis or deformity SKIN: No rashes CENTRAL NERVOUS SYSTEM: Sedated, tone is normal in all 4 extremities. EXTREMITIES: There is no peripheral edema. No clubbing, no cyanosis. Peripheral pulses are intact. - Labs CBC & Chem 7: 05/22/22 13:35 05/22/22 13:35 Labs: Abnormal Lab Results - Last 24 Hours (Table) 05/21/22 05/21/22 05/22/22 Range/Units 08:48 10:38 06:26 WBC (3.8-10.6) k/uL Plt Count (150-450) k/uL Neutrophils # (1.3-7.7) k/uL Lymphocytes # (1.0-4.8) k/uL INR (<1.2) APTT (22.0-30.0) sec ABG pH (7.35-7.45) ABG pCO2 (35-45) mmHg ABG pO2 (83-108) mmHg ABG HCO3 (21-25) mmol/L ABG Total CO2 (19-24) mmol/L ABG O2 Saturation (94-97) % ABG Hematocrit (34.0-46.0) % ABG Potassium (3.4-4.5) mmol/L ABG Ionized Calcium (4.5-5.3) mg/dL ABG Glucose (75-99) mg/dL ABG Lactic Acid (0.5-1.6) mmol/L Hemoglobin (11.4-16.0) gm/dL BUN (7-17) mg/dL Glucose (74-99) mg/dL POC Glucose (mg/dL) 128 H (70-110) mg/dL Hemoglobin A1c 6.4 H (0.0-6.0) % Calcium (8.4-10.2) mg/dL Magnesium (1.6-2.3) mg/dL AST (14-36) U/L Total Protein (6.3-8.2) g/dL Albumin (3.5-5.0) g/dL Arterial Blood Potassium (3.4-4.5) mmol/L Arterial Blood Glucose (75-99) mg/dL Crossmatch See Detail 05/22/22 05/22/22 05/22/22 Range/Units 08:34 09:37 10:11 WBC (3.8-10.6) k/uL Plt Count (150-450) k/uL Neutrophils # (1.3-7.7) k/uL Lymphocytes # (1.0-4.8) k/uL INR (<1.2) APTT (22.0-30.0) sec ABG pH (7.35-7.45) ABG pCO2 55 H 47 H (35-45) mmHg ABG pO2 >420 H >420 H >420 H (83-108) mmHg ABG HCO3 32 H 31 H 29 H (21-25) mmol/L ABG Total CO2 34 H 32 H 30 H (19-24) mmol/L ABG O2 Saturation 100.0 H 100.0 H 100.0 H (94-97) % ABG Hematocrit 31 L (34.0-46.0) % ABG Potassium (3.4-4.5) mmol/L ABG Ionized Calcium 4.0 L (4.5-5.3) mg/dL ABG Glucose 120 H 134 H 146 H (75-99) mg/dL ABG Lactic Acid (0.5-1.6) mmol/L Hemoglobin 9.9 L (11.4-16.0) gm/dL BUN (7-17) mg/dL Glucose (74-99) mg/dL POC Glucose (mg/dL) (70-110) mg/dL Hemoglobin A1c (0.0-6.0) % Calcium (8.4-10.2) mg/dL Magnesium (1.6-2.3) mg/dL AST (14-36) U/L Total Protein (6.3-8.2) g/dL Albumin (3.5-5.0) g/dL Arterial Blood Potassium (3.4-4.5) mmol/L Arterial Blood Glucose 120 H 134 H 146 H (75-99) mg/dL Crossmatch 05/22/22 05/22/22 05/22/22 Range/Units 10:45 11:17 11:51 WBC (3.8-10.6) k/uL Plt Count (150-450) k/uL Neutrophils # (1.3-7.7) k/uL Lymphocytes # (1.0-4.8) k/uL INR (<1.2) APTT (22.0-30.0) sec ABG pH 7.47 H (7.35-7.45) ABG pCO2 (35-45) mmHg ABG pO2 327 H 305 H 351 H (83-108) mmHg ABG HCO3 30 H 30 H 28 H (21-25) mmol/L ABG Total CO2 31 H 31 H 29 H (19-24) mmol/L ABG O2 Saturation 100.0 H 100.0 H 100.0 H (94-97) % ABG Hematocrit 28 L 30 L 27 L (34.0-46.0) % ABG Potassium 4.7 H 4.7 H 4.7 H (3.4-4.5) mmol/L ABG Ionized Calcium 4.0 L 4.0 L 5.9 H (4.5-5.3) mg/dL ABG Glucose 146 H 157 H 162 H (75-99) mg/dL ABG Lactic Acid 2.0 H (0.5-1.6) mmol/L Hemoglobin 9.2 L 9.9 L 8.9 L (11.4-16.0) gm/dL BUN (7-17) mg/dL Glucose (74-99) mg/dL POC Glucose (mg/dL) (70-110) mg/dL Hemoglobin A1c (0.0-6.0) % Calcium (8.4-10.2) mg/dL Magnesium (1.6-2.3) mg/dL AST (14-36) U/L Total Protein (6.3-8.2) g/dL Albumin (3.5-5.0) g/dL Arterial Blood Potassium 4.7 H 4.7 H 4.7 H (3.4-4.5) mmol/L Arterial Blood Glucose 146 H 157 H 162 H (75-99) mg/dL Crossmatch 05/22/22 05/22/22 05/22/22 Range/Units 13:05 13:32 13:35 WBC 13.2 H (3.8-10.6) k/uL Plt Count 148 L D (150-450) k/uL Neutrophils # 11.7 H (1.3-7.7) k/uL Lymphocytes # 0.7 L (1.0-4.8) k/uL INR (<1.2) APTT (22.0-30.0) sec ABG pH 7.28 L (7.35-7.45) ABG pCO2 59 H (35-45) mmHg ABG pO2 80 L (83-108) mmHg ABG HCO3 28 H (21-25) mmol/L ABG Total CO2 30 H (19-24) mmol/L ABG O2 Saturation (94-97) % ABG Hematocrit (34.0-46.0) % ABG Potassium (3.4-4.5) mmol/L ABG Ionized Calcium (4.5-5.3) mg/dL ABG Glucose 160 H (75-99) mg/dL ABG Lactic Acid 1.9 H (0.5-1.6) mmol/L Hemoglobin (11.4-16.0) gm/dL BUN (7-17) mg/dL Glucose (74-99) mg/dL POC Glucose (mg/dL) 159 H (70-110) mg/dL Hemoglobin A1c (0.0-6.0) % Calcium (8.4-10.2) mg/dL Magnesium (1.6-2.3) mg/dL AST (14-36) U/L Total Protein (6.3-8.2) g/dL Albumin (3.5-5.0) g/dL Arterial Blood Potassium (3.4-4.5) mmol/L Arterial Blood Glucose 160 H (75-99) mg/dL Crossmatch 05/22/22 05/22/22 05/22/22 Range/Units 13:35 13:35 13:57 WBC (3.8-10.6) k/uL Plt Count (150-450) k/uL Neutrophils # (1.3-7.7) k/uL Lymphocytes # (1.0-4.8) k/uL INR 1.2 H (<1.2) APTT 111.6 H* (22.0-30.0) sec ABG pH 7.31 L (7.35-7.45) ABG pCO2 57 H (35-45) mmHg ABG pO2 357 H (83-108) mmHg ABG HCO3 28 H (21-25) mmol/L ABG Total CO2 30 H (19-24) mmol/L ABG O2 Saturation 100.0 H (94-97) % ABG Hematocrit (34.0-46.0) % ABG Potassium (3.4-4.5) mmol/L ABG Ionized Calcium (4.5-5.3) mg/dL ABG Glucose (75-99) mg/dL ABG Lactic Acid (0.5-1.6) mmol/L Hemoglobin (11.4-16.0) gm/dL BUN 20 H (7-17) mg/dL Glucose 152 H (74-99) mg/dL POC Glucose (mg/dL) (70-110) mg/dL Hemoglobin A1c (0.0-6.0) % Calcium 7.9 L (8.4-10.2) mg/dL Magnesium 3.1 H (1.6-2.3) mg/dL AST 61 H (14-36) U/L Total Protein 4.7 L (6.3-8.2) g/dL Albumin 2.8 L (3.5-5.0) g/dL Arterial Blood Potassium (3.4-4.5) mmol/L Arterial Blood Glucose (75-99) mg/dL Crossmatch 05/22/22 Range/Units 13:57 WBC (3.8-10.6) k/uL Plt Count (150-450) k/uL Neutrophils # (1.3-7.7) k/uL Lymphocytes # (1.0-4.8) k/uL INR (<1.2) APTT (22.0-30.0) sec ABG pH (7.35-7.45) ABG pCO2 (35-45) mmHg ABG pO2 (83-108) mmHg ABG HCO3 (21-25) mmol/L ABG Total CO2 (19-24) mmol/L ABG O2 Saturation (94-97) % ABG Hematocrit (34.0-46.0) % ABG Potassium (3.4-4.5) mmol/L ABG Ionized Calcium (4.5-5.3) mg/dL ABG Glucose (75-99) mg/dL ABG Lactic Acid (0.5-1.6) mmol/L Hemoglobin (11.4-16.0) gm/dL BUN (7-17) mg/dL Glucose (74-99) mg/dL POC Glucose (mg/dL) 152 H (70-110) mg/dL Hemoglobin A1c (0.0-6.0) % Calcium (8.4-10.2) mg/dL Magnesium (1.6-2.3) mg/dL AST (14-36) U/L Total Protein (6.3-8.2) g/dL Albumin (3.5-5.0) g/dL Arterial Blood Potassium (3.4-4.5) mmol/L Arterial Blood Glucose (75-99) mg/dL Crossmatch Assessment and Plan Assessment: Acute CHF secondary to severe mitral regurgitation/stenosis and decompensated heart failure. The patient did undergo a mitral valve replacement, tricuspid valve repair, exclusion of left atrial appendage with a 35 mm atrophic clip, intraoperative DENISE. Postoperative day #0. Acute fluid overload secondary to above, improving with diuresis and treated with Lasix 40 mg IV every 12 hours preoperatively Severe mitral valve regurgitation/stenosis with secondary pulmonary hypertension Acute hypoxic respiratory failure secondary to above Right-sided pleural effusion, small, secondary to above Nonocclusive coronary artery disease Lower extremity edema secondary to above Hypertension Depression Hyperlipidemia Adequate performance of functional status Smoker Plan: The patient was seen and evaluated Chest x-ray, ABGs, medications and labs reviewed Appropriate vent changes were made Continue bronchodilators We'll plan for early extubation protocol as tolerated We will continue to follow I have personally seen and examined the patient, performed the documentation and the assessment and plan as written. Number of minutes spent on the visit: 15.
[2022-05-22 15:46] LABS: ABG Base Excess 2.9 mmol/L; ABG HCO3 30 mmol/L (21-25); ABG PCO2 62 mmHg (35-45); ABG PH 7.29 (7.35-7.45); ABG TCO2 31 mmol/L (19-24)
[2022-05-22 15:48] LABS: ABG PO2 35 mmHg (83-108); Allen Test Performed? no
[2022-05-22 15:57] LABS: Glucose,Whole Blood 160 mg/dL (70-110)
[2022-05-22] MEDS ORDERED: IPRATROPIUM-ALBUTEROL 3 ML NEB INHALATION SCH (16:00)
[2022-05-22] MEDS ORDERED: POTASSIUM CHLORIDE 20 MEQ in WATER FOR INJECTION 1 100ML.BAG IVPB STA (16:13)
--- NOTE | 2022-05-22 16:33 | P.PN ---
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 The patient was recently admitted to the hospital from 04/25-04/27 for similar complaints, at which time she was diagnosed with the above mitral valve disease. The patient was advised to follow-up as an outpatient for an elective mitral valve repair/replacement with cardiothoracic surgery. Upon arrival at the emergency room vital signs were within normal limits. Chest CTA revealed no evidence of PE with a right pleural effusion. EKG revealed sinus tachycardia with PVCs at 102 bpm with no notable ST/T-wave changes noted as reviewed by me. Laboratory evaluation was remarkable for troponin of less than 0.012, proBNP 3870, AST 132, ALT 158, and alk phos 232 with a total bilirubin 1.4. She was admitted for acute exacerbation of right- sided heart failure in the setting of severe mitral valve disease. She was started on IV diuresis and cardiology was consulted. Cardiovascular surgery was also consulted. Patient underwent open heart surgery with mitral valve replacement, tricuspid valve repair, exclusion of the left atrial appendage with a 35mm atrial clip. Patient was seen and examined. No acute events overnight. Patient is seen post operatively. She is currently ventilated rate of 14, tidal volume 450, FiO2 50%, PEEP of 8. She is on milrinone at 0.25, propofol at 30, amiodarone at 1, insulin drip at 1.5. ABG shows pH of 7.29, pCO2 of 62, pO2 of 35. CBC shows WBC count of 13.2 and platelet count of 148. INR is 1.2 and aPTT is 111.6. CMP shows BUN of 20, glucose of 152, calcium of 7.9, AST of 61, albumin of 2.8. Magnesium level is 3.1. General: Intubated Derm: warm, dry Head: atraumatic, normocephalic, symmetric Eyes: ROMAN, no lid lag, anicteric sclera Mouth: no lip lesion, mucus membranes moist Cardiovascular: S1S2 reg, with murmur, mediastinal and pleural chest tubes in place Lungs: Decreased BS bilateral, no rhonchi, no rales , no accessory muscle use Ext: no gross muscle atrophy, trace edema, no contractures Neuro: Unable to determine Psych: Unable to determine #Acute hypoxic respiratory failure -Vent management -Pulmonology on board #Acute exacerbation of right-sided heart failure, cor pulmonale in the setting of severe mitral valve disease #Severe mitral regurgitation with moderate to severe stenosis #Severe pulmonary hypertension #Nonobstructive coronary artery disease #Hypertension -Cardiothoracic surgery on board -Status post mitral valve replacement, tricuspid valve repair, exclusion of the left atrial appendage with a 35mm atrial clip 05/22 -Aspirin, statin, beta vince -Strict I's and O's, daily weights #Constipation -Continue with bowel regiment #Transaminitis secondary to hepatic congestion -Improving with diuresis -Continue to monitor #Leukocytosis -Likely reactive -Monitor fever profile with daily CBC Objective - Vital Signs Vital signs: Vital Signs Temp 97.3 F L 05/22/22 15:00 Pulse 84 05/22/22 15:12 Resp 14 05/22/22 15:00 BP 125/63 05/22/22 06:15 Pulse Ox 95 05/22/22 15:00 FiO2 50 05/22/22 14:53 Intake & Output 05/21/22 05/22/22 05/22/22 18:59 06:59 18:59 Intake Total 688 550 663.501 Output Total 3520 Balance 688 550 -2856.499 Intake: IV 30 70 652 0.9 100 Albumin Human 5% 250 ml 500 In Empty Bag 1 bag @ 250 mls/hr IVPB Q1HR PRN Rx#: [id number] Invasive Line 2 20 Invasive Line 3 10 20 Intake, IV Titration 11.501 Amount Insulin Regular 100 unit 4.301 In Sodium Chloride 0.9% 100 ml @ Per Protocol IV .Q0M VERONICA Rx#:[id number] Milrinone-D5w Pmx 20 mg 7.2 In Dextrose/Water 1 100ml .bag @ Per Protocol IV . Q0M VERONICA Rx#:[id number] Oral 658 480 Output: Chest Tube Drainage 390 Mediastinal x 2 250 Right Pleural 140 Urine 630 Estimated Blood Loss 2500 Other: Voiding Method Toilet Toilet # Voids 1 2 ABP, PAP, CO, CI - Last Documented Arterial Blood Pressure 94/58 Pulmonary Artery Pressure 46/28 Cardiac Output 3 Cardiac Index 1.6 - Labs CBC & Chem 7: 05/22/22 13:35 05/22/22 13:35 Labs: Abnormal Lab Results - Last 24 Hours (Table) 05/21/22 05/21/22 05/22/22 Range/Units 08:48 10:38 06:26 WBC (3.8-10.6) k/uL Plt Count (150-450) k/uL Neutrophils # (1.3-7.7) k/uL Lymphocytes # (1.0-4.8) k/uL INR (<1.2) APTT (22.0-30.0) sec ABG pH (7.35-7.45) ABG pCO2 (35-45) mmHg ABG pO2 (83-108) mmHg ABG HCO3 (21-25) mmol/L ABG Total CO2 (19-24) mmol/L ABG O2 Saturation (94-97) % ABG Hematocrit (34.0-46.0) % ABG Potassium (3.4-4.5) mmol/L ABG Ionized Calcium (4.5-5.3) mg/dL ABG Glucose (75-99) mg/dL ABG Lactic Acid (0.5-1.6) mmol/L Hemoglobin (11.4-16.0) gm/dL BUN (7-17) mg/dL Glucose (74-99) mg/dL POC Glucose (mg/dL) 128 H (70-110) mg/dL Hemoglobin A1c 6.4 H (0.0-6.0) % Calcium (8.4-10.2) mg/dL Magnesium (1.6-2.3) mg/dL AST (14-36) U/L Total Protein (6.3-8.2) g/dL Albumin (3.5-5.0) g/dL Arterial Blood Potassium (3.4-4.5) mmol/L Arterial Blood Glucose (75-99) mg/dL Crossmatch See Detail 05/22/22 05/22/22 05/22/22 Range/Units 08:34 09:37 10:11 WBC (3.8-10.6) k/uL Plt Count (150-450) k/uL Neutrophils # (1.3-7.7) k/uL Lymphocytes # (1.0-4.8) k/uL INR (<1.2) APTT (22.0-30.0) sec ABG pH (7.35-7.45) ABG pCO2 55 H 47 H (35-45) mmHg ABG pO2 >420 H >420 H >420 H (83-108) mmHg ABG HCO3 32 H 31 H 29 H (21-25) mmol/L ABG Total CO2 34 H 32 H 30 H (19-24) mmol/L ABG O2 Saturation 100.0 H 100.0 H 100.0 H (94-97) % ABG Hematocrit 31 L (34.0-46.0) % ABG Potassium (3.4-4.5) mmol/L ABG Ionized Calcium 4.0 L (4.5-5.3) mg/dL ABG Glucose 120 H 134 H 146 H (75-99) mg/dL ABG Lactic Acid (0.5-1.6) mmol/L Hemoglobin 9.9 L (11.4-16.0) gm/dL BUN (7-17) mg/dL Glucose (74-99) mg/dL POC Glucose (mg/dL) (70-110) mg/dL Hemoglobin A1c (0.0-6.0) % Calcium (8.4-10.2) mg/dL Magnesium (1.6-2.3) mg/dL AST (14-36) U/L Total Protein (6.3-8.2) g/dL Albumin (3.5-5.0) g/dL Arterial Blood Potassium (3.4-4.5) mmol/L Arterial Blood Glucose 120 H 134 H 146 H (75-99) mg/dL Crossmatch 05/22/22 05/22/22 05/22/22 Range/Units 10:45 11:17 11:51 WBC (3.8-10.6) k/uL Plt Count (150-450) k/uL Neutrophils # (1.3-7.7) k/uL Lymphocytes # (1.0-4.8) k/uL INR (<1.2) APTT (22.0-30.0) sec ABG pH 7.47 H (7.35-7.45) ABG pCO2 (35-45) mmHg ABG pO2 327 H 305 H 351 H (83-108) mmHg ABG HCO3 30 H 30 H 28 H (21-25) mmol/L ABG Total CO2 31 H 31 H 29 H (19-24) mmol/L ABG O2 Saturation 100.0 H 100.0 H 100.0 H (94-97) % ABG Hematocrit 28 L 30 L 27 L (34.0-46.0) % ABG Potassium 4.7 H 4.7 H 4.7 H (3.4-4.5) mmol/L ABG Ionized Calcium 4.0 L 4.0 L 5.9 H (4.5-5.3) mg/dL ABG Glucose 146 H 157 H 162 H (75-99) mg/dL ABG Lactic Acid 2.0 H (0.5-1.6) mmol/L Hemoglobin 9.2 L 9.9 L 8.9 L (11.4-16.0) gm/dL BUN (7-17) mg/dL Glucose (74-99) mg/dL POC Glucose (mg/dL) (70-110) mg/dL Hemoglobin A1c (0.0-6.0) % Calcium (8.4-10.2) mg/dL Magnesium (1.6-2.3) mg/dL AST (14-36) U/L Total Protein (6.3-8.2) g/dL Albumin (3.5-5.0) g/dL Arterial Blood Potassium 4.7 H 4.7 H 4.7 H (3.4-4.5) mmol/L Arterial Blood Glucose 146 H 157 H 162 H (75-99) mg/dL Crossmatch 05/22/22 05/22/22 05/22/22 Range/Units 13:05 13:32 13:35 WBC 13.2 H (3.8-10.6) k/uL Plt Count 148 L D (150-450) k/uL Neutrophils # 11.7 H (1.3-7.7) k/uL Lymphocytes # 0.7 L (1.0-4.8) k/uL INR (<1.2) APTT (22.0-30.0) sec ABG pH 7.28 L (7.35-7.45) ABG pCO2 59 H (35-45) mmHg ABG pO2 80 L (83-108) mmHg ABG HCO3 28 H (21-25) mmol/L ABG Total CO2 30 H (19-24) mmol/L ABG O2 Saturation (94-97) % ABG Hematocrit (34.0-46.0) % ABG Potassium (3.4-4.5) mmol/L ABG Ionized Calcium (4.5-5.3) mg/dL ABG Glucose 160 H (75-99) mg/dL ABG Lactic Acid 1.9 H (0.5-1.6) mmol/L Hemoglobin (11.4-16.0) gm/dL BUN (7-17) mg/dL Glucose (74-99) mg/dL POC Glucose (mg/dL) 159 H (70-110) mg/dL Hemoglobin A1c (0.0-6.0) % Calcium (8.4-10.2) mg/dL Magnesium (1.6-2.3) mg/dL AST (14-36) U/L Total Protein (6.3-8.2) g/dL Albumin (3.5-5.0) g/dL Arterial Blood Potassium (3.4-4.5) mmol/L Arterial Blood Glucose 160 H (75-99) mg/dL Crossmatch 05/22/22 05/22/22 05/22/22 Range/Units 13:35 13:35 13:57 WBC (3.8-10.6) k/uL Plt Count (150-450) k/uL Neutrophils # (1.3-7.7) k/uL Lymphocytes # (1.0-4.8) k/uL INR 1.2 H (<1.2) APTT 111.6 H* (22.0-30.0) sec ABG pH 7.31 L (7.35-7.45) ABG pCO2 57 H (35-45) mmHg ABG pO2 357 H (83-108) mmHg ABG HCO3 28 H (21-25) mmol/L ABG Total CO2 30 H (19-24) mmol/L ABG O2 Saturation 100.0 H (94-97) % ABG Hematocrit (34.0-46.0) % ABG Potassium (3.4-4.5) mmol/L ABG Ionized Calcium (4.5-5.3) mg/dL ABG Glucose (75-99) mg/dL ABG Lactic Acid (0.5-1.6) mmol/L Hemoglobin (11.4-16.0) gm/dL BUN 20 H (7-17) mg/dL Glucose 152 H (74-99) mg/dL POC Glucose (mg/dL) (70-110) mg/dL Hemoglobin A1c (0.0-6.0) % Calcium 7.9 L (8.4-10.2) mg/dL Magnesium 3.1 H (1.6-2.3) mg/dL AST 61 H (14-36) U/L Total Protein 4.7 L (6.3-8.2) g/dL Albumin 2.8 L (3.5-5.0) g/dL Arterial Blood Potassium (3.4-4.5) mmol/L Arterial Blood Glucose (75-99) mg/dL Crossmatch 05/22/22 05/22/22 05/22/22 Range/Units 13:57 14:56 15:44 WBC (3.8-10.6) k/uL Plt Count (150-450) k/uL Neutrophils # (1.3-7.7) k/uL Lymphocytes # (1.0-4.8) k/uL INR (<1.2) APTT (22.0-30.0) sec ABG pH 7.29 L (7.35-7.45) ABG pCO2 62 H (35-45) mmHg ABG pO2 35 L* (83-108) mmHg ABG HCO3 30 H (21-25) mmol/L ABG Total CO2 31 H (19-24) mmol/L ABG O2 Saturation 57.0 L (94-97) % ABG Hematocrit (34.0-46.0) % ABG Potassium (3.4-4.5) mmol/L ABG Ionized Calcium (4.5-5.3) mg/dL ABG Glucose (75-99) mg/dL ABG Lactic Acid (0.5-1.6) mmol/L Hemoglobin (11.4-16.0) gm/dL BUN (7-17) mg/dL Glucose (74-99) mg/dL POC Glucose (mg/dL) 152 H 168 H (70-110) mg/dL Hemoglobin A1c (0.0-6.0) % Calcium (8.4-10.2) mg/dL Magnesium (1.6-2.3) mg/dL AST (14-36) U/L Total Protein (6.3-8.2) g/dL Albumin (3.5-5.0) g/dL Arterial Blood Potassium (3.4-4.5) mmol/L Arterial Blood Glucose (75-99) mg/dL Crossmatch 05/22/22 Range/Units 15:56 WBC (3.8-10.6) k/uL Plt Count (150-450) k/uL Neutrophils # (1.3-7.7) k/uL Lymphocytes # (1.0-4.8) k/uL INR (<1.2) APTT (22.0-30.0) sec ABG pH (7.35-7.45) ABG pCO2 (35-45) mmHg ABG pO2 (83-108) mmHg ABG HCO3 (21-25) mmol/L ABG Total CO2 (19-24) mmol/L ABG O2 Saturation (94-97) % ABG Hematocrit (34.0-46.0) % ABG Potassium (3.4-4.5) mmol/L ABG Ionized Calcium (4.5-5.3) mg/dL ABG Glucose (75-99) mg/dL ABG Lactic Acid (0.5-1.6) mmol/L Hemoglobin (11.4-16.0) gm/dL BUN (7-17) mg/dL Glucose (74-99) mg/dL POC Glucose (mg/dL) 160 H (70-110) mg/dL Hemoglobin A1c (0.0-6.0) % Calcium (8.4-10.2) mg/dL Magnesium (1.6-2.3) mg/dL AST (14-36) U/L Total Protein (6.3-8.2) g/dL Albumin (3.5-5.0) g/dL Arterial Blood Potassium (3.4-4.5) mmol/L Arterial Blood Glucose (75-99) mg/dL Crossmatch
[2022-05-22 16:39] LABS: Basophils % (A) 0 %; Eosinophils % (A) 0 %; HCT 32.1 % (34.0-46.0); HGB 10.5 gm/dL (11.4-16.0); Hypochromasia Slight; Lymphocytes # (A) 0.9 k/uL (1.0-4.8); Lymphocytes % (A) 7 %; MCHC 32.7 g/dL (31.0-37.0); MCV 94.6 fL (80.0-100.0); Mean Platelet Volume 10.2; Monocytes # (A) 0.7 k/uL (0-1.0); Monocytes % (A) 5 %; Neutrophils # (A) 10.7 k/uL (1.3-7.7); Neutrophils % (A) 86 %; Platelet Count 148 k/uL (150-450); RBC 3.39 m/uL (3.80-5.40); RDW 14.6 % (11.5-15.5); WBC 12.5 k/uL (3.8-10.6)
[2022-05-22 16:59] LABS: Glucose,Whole Blood 153 mg/dL (70-110)
[2022-05-22] MEDS: ACETAMINOPHEN IV (For NPO) 1,000 MG in EMPTY BAG 1 BAG IVPB SCH ×2 (18:02→23:18)
[2022-05-22 18:07] LABS: Glucose,Whole Blood 151 mg/dL (70-110)
[2022-05-22 18:57] LABS: ABG Base Excess 2.1 mmol/L; ABG HCO3 28 mmol/L (21-25); ABG Oxygen Saturation 98.9 % (94-97); ABG PCO2 49 mmHg (35-45); ABG PH 7.36 (7.35-7.45); ABG PO2 105 mmHg (83-108); ABG TCO2 29 mmol/L (19-24)
[2022-05-22 18:58] LABS: Allen Test Performed? no
[2022-05-22 19:25] LABS: Glucose,Whole Blood 150 mg/dL (70-110)
[2022-05-22 19:32] LABS: Basophils % (A) 0 %; Eosinophils % (A) 0 %; HCT 30.4 % (34.0-46.0); HGB 10.1 gm/dL (11.4-16.0); Lymphocytes # (A) 0.4 k/uL (1.0-4.8); Lymphocytes % (A) 4 %; MCH 31.1 pg (25.0-35.0); MCHC 33.1 g/dL (31.0-37.0); MCV 94.1 fL (80.0-100.0); Mean Platelet Volume 10.3; Monocytes # (A) 0.7 k/uL (0-1.0); Monocytes % (A) 6 %; Neutrophils # (A) 10.9 k/uL (1.3-7.7); Neutrophils % (A) 89 %; Platelet Count 160 k/uL (150-450); RBC 3.23 m/uL (3.80-5.40); RDW 15.2 % (11.5-15.5); WBC 12.2 k/uL (3.8-10.6)
[2022-05-22] MEDS: AMIODARONE 450 MG in DEXTROSE 5% IN WATER 250 ML IV SCH ×2 (19:54)
[2022-05-22 20:14] LABS: Glucose,Whole Blood 147 mg/dL (70-110)
[2022-05-22] MEDS: KETOROLAC 15 MG/ML 1 ML VIAL IVP SCH ×2 (20:24→23:52)
[2022-05-22] MEDS: IPRATROPIUM-ALBUTEROL 3 ML NEB INHALATION SCH (20:38)
[2022-05-22 20:56] LABS: Glucose,Whole Blood 137 mg/dL (70-110)
--- NOTE | 2022-05-22 21:00 | OP ---
OPERATIVE REPORT ASSISTANTS: Kevin Wick, Nurse Practitioner, and Joseluis Bean RN. PREOPERATIVE DIAGNOSES: Severe rheumatic mitral valve stenosis with severe pulmonary hypertension, moderate mitral valve regurgitation, preserved left ventricular systolic function, moderate right ventricular dysfunction, moderate tricuspid valve regurgitation, smoker, congestive heart failure, hypertension, history of supraventricular tachycardia. POSTOPERATIVE DIAGNOSES: Severe rheumatic mitral valve stenosis with severe pulmonary hypertension, moderate mitral valve regurgitation, preserved left ventricular systolic function, moderate right ventricular dysfunction, moderate tricuspid valve regurgitation, smoker, congestive heart failure, hypertension, history of supraventricular tachycardia. PROCEDURES PERFORMED: 1. Chordal preserving mitral valve replacement using a 27 mm mosaic porcine bioprosthesis. 2. Tricuspid valve repair with ring annuloplasty using a 28 mm MC-3 ring. 3. Excision of the left atrial appendage using a 35 mm AtriClip. 4. Intraoperative transesophageal echocardiogram and epiaortic scanning. INDICATIONS FOR SURGERY: The patient is a 61-year-old lady who had been seen as an outpatient after a recent admission for congestive heart failure with on echo a diagnosis of rheumatic mitral stenosis and mitral regurgitation with [id number] pulmonary hypertension and moderate tricuspid valve regurgitation. The patient is an active smoker and she was asked to stop smoking in preparation for surgery. In the interim, she was readmitted with another episode of congestive heart failure and at this point, we proceeded to turn her up medically with several days of IV diuretics with very good clinical response. Repeat echo before surgery at this point still showed severe pulmonary hypertension and the moderate right ventricular dilatation and dysfunction and moderate tricuspid valve regurgitation. For that reason, she has been taken today for an urgent mitral valve replacement, tricuspid valve repair. Her coronaries have no blockage in them. The STS risk was discussed with her and her family. They understood it and agreed to proceed. DESCRIPTION OF THE PROCEDURE: The patient in supine position in the preoperative holding area. Right internal jugular [place]-Celso catheter and a right radial arterial line were placed. The patient had a cardiac index of 2.4 and pulmonary artery pressure which was too systemic at around 80 to 90 mmHg. The patient was brought to the operating room and general endotracheal anesthesia was induced uneventfully. Crespo catheter was inserted. The chest, abdomen, and both lower extremities were prepped and draped using ChloraPrep. Ioban was used to cover the skin. The patient received 2 g of cefazolin intravenously. Transesophageal echocardiogram confirmed the preoperative finding of severe mitral valve disease and preserved left ventricular function with moderate right ventricular dysfunction and moderate tricuspid valve regurgitation. Midline sternotomy was performed and the bone was reasonably dense. The left pleura remained intact. The right pleura was intentionally opened and aspirating it did not reveal much of an effusion that is present at this point, although the patient had a right effusion on her CT scan several days ago. A 19-[place] Dell drain was used to drain the right pleural cavity. Mediastinal fat was transected between 2 ties and epiaortic scanning revealed no protruding atheroma in the ascending aorta. Pericardium was opened in an inverted T-fashion and a pericardial cradle was created. We used the Sandor mitral retractor. Finding included a normal soft aorta and enlarged right- sided cavities. After systemic heparinization after placement of respective pledgeted pursestring, aortic cannulation in the distal ascending aorta with a 21-[place] soft flow cannula, direct SVC cannulation with a 28-[place] right angle cannula, IVC cannulation at the junction with the right atrium with a 30-[place] straight cannula was performed. Antegrade as well as retrograde cardioplegia catheter were placed. Cardioplegia bypass was initiated and the patient's temperature was allowed to drift down to 34 degrees Celsius. At this point, both cava were encircled with umbilical tape, but not snared. Aorta was clamped and during aortic clamping, myocardial protection was achieved with initial dose of 750 mL of antegrade cold blood cardioplegia followed by 500 mL of retrograde cold blood cardioplegia. All subsequent doses were given retrograde at 15 minutes interval. I gave 1 dose of antegrade cardioplegia in the midst of surgery for better RV protection. We started by excluding the left atrial appendage using a 35 mm AtriClip deployed at its base. Subsequently, a standard left atriotomy was performed in a transverse fashion after developing the interatrial groove. Using the mitral retractor, we had good exposure of the mitral valve. This valve had advanced traumatic features with complete commissure or fusion and anterior leaflet was essentially plastered to the papillary muscle and a thickened posterior leaflet with thickened subvalvular apparatus with mild posterior annular calcification. Looking at this valve, it was obvious that we could not preserve any of the anterior leaflet, which was totally resected. There were essentially no chords as the valve was plastered to the papillary muscle as mentioned above. I preserved the totality of the posterior leaflet. We passed a total of 16 suture of Ti-Cron 2-0 pledgeted with the pledgets on the atrial side. The mitral valve was sized to a 27 mm mosaic, which was brought into the field after preparation. Now the suture passed symmetrically into the cuff of the valve. The valve was cinched and advanced into the ventricle and the cinch mechanism was released. All the needles were cut and the suture tied using the Cor-Knot device. Inspection of the valve revealed good seal and no obstruction, although again there was a thickened fibrotic tip of the papillary muscle that is under the valve. At this point, the left atriotomy was closed using a single layer of 4-0 Prolene buttressed on each corner with a pledget and meeting in the midline. CO2 was flowing over the field as long as the left-sided cavities were open. Before full left atrial closure, de-airing maneuvers were pursued. At this point, both cava were snared and the retrograde catheter was removed. An oblique right atriotomy was performed and the tricuspid valve was exposed. The leaflets were reasonable and there was annular dilatation. For that reason, I selected a 28 mm MC3 ring. I passed a total of 8 sutures from the mid of the septal leaflet all the way to 80% of the anterior leaflet sparing the area of potential AV node. Those sutures were passed into the ring, which seated nicely and did not care home the [place]-Celso catheter. The sutures were tied using the Cor-Knot device. The right atrium was closed with a 4-0 Prolene buttress on each corner with 2 strips of autologous pericardium that I harvested at the beginning of the case. The patient had been half loaded with Primacor and started at a 0.25 mcg per kg per minute and drip. She was placed in Trendelenburg position and de-airing maneuvers were pursued before unclamping the aorta. The patient regained spontaneous sinus rhythm soon after. Two monopolar atrial pacing wires were affixed to the right atrium to make closure and 1 bipolar ventricular pacing wire was driven via the inferior aspect of the right ventricle. After around 50 minutes of reperfusion and after adequate de-airing guided by DENISE and with a good functioning valve with no paravalvular leak, we weaned off cardiopulmonary bypass again on the above Primacor support. The cardiac index was 2.4. With that, we gave after stopping all the suckers, test dose followed by full dose protamine. Decannulation followed. The arterial cannulation site on 1 corner required reinforcement with a pledgeted 4-0 Prolene. Pericardial and mediastinal fat were approximated over the right ventricle and the aorta. Two 19-[place] Dell drains were left substernally. After ensuring adequate hemostasis and hemodynamic and after correct sponge, instrument, and needle count, the sternum was closed using 5 [id number] pineal cable after interposing fibrillar between the sternal edges. Thorough irrigation with cefazolin followed. The rest of the closure proceeded in layers. Skin glue was applied. The patient did not receive any blood bank product, but received 1100 mL of Cell Saver blood. She was transferred to the ICU with a cardiac index of 2.2, PA pressure of 45/22, sinus rhythm at 77 with a mean arterial pressure of 73 on 0.25 mcg per kg per minute of Primacor. MED / RAQUEL: [id number] /
[2022-05-22] MEDS: SYMBICORT 160-4.5 MCG INHALER INHALATION SCH (21:22)
[2022-05-22 22:18] LABS: Glucose,Whole Blood 142 mg/dL (70-110)
[2022-05-22 23:08] LABS: Glucose,Whole Blood 138 mg/dL (70-110)
[2022-05-23 00:04] LABS: Glucose,Whole Blood 131 mg/dL (70-110)
[2022-05-23 01:15] LABS: Glucose,Whole Blood 122 mg/dL (70-110)
[2022-05-23 02:13] LABS: Glucose,Whole Blood 119 mg/dL (70-110)
[2022-05-23 03:14] LABS: Glucose,Whole Blood 119 mg/dL (70-110)
[2022-05-23 03:40] LABS: Basophils % (A) 0 %; Eosinophils % (A) 0 %; HCT 28.3 % (34.0-46.0); HGB 9.4 gm/dL (11.4-16.0); Lymphocytes # (A) 0.6 k/uL (1.0-4.8); Lymphocytes % (A) 5 %; MCHC 33.1 g/dL (31.0-37.0); MCV 93.6 fL (80.0-100.0); Mean Platelet Volume 9.5; Monocytes % (A) 8 %; Neutrophils # (A) 11.4 k/uL (1.3-7.7); Neutrophils % (A) 86 %; Platelet Count 154 k/uL (150-450); RBC 3.02 m/uL (3.80-5.40); RDW 15.2 % (11.5-15.5); WBC 13.3 k/uL (3.8-10.6)
[2022-05-23 03:46] LABS: Ionized Calcium 4.9 mg/dL (4.5-5.3)
[2022-05-23 03:55] LABS: ALT 24 U/L (4-34); AST 82 U/L (14-36); African American GFR (CKD) >90 (>60 ml/min/1.73 sqM); Albumin 3.7 g/dL (3.5-5.0); Alkaline Phosphatase 63 U/L (38-126); Anion Gap 3 mmol/L; Blood Urea Nitrogen 20 mg/dL (7-17); Calcium 8.5 mg/dL (8.4-10.2); Carbon Dioxide 26 mmol/L (22-30); Chloride 109 mmol/L (98-107); Glucose 108 mg/dL (74-99); Magnesium 2.3 mg/dL (1.6-2.3); Non-African American GFR(CKD) >90 (>60 ml/min/1.73 sqM); Potassium 3.9 mmol/L (3.5-5.1); Sodium 138 mmol/L (137-145); Total Bilirubin 0.7 mg/dL (0.2-1.3); Total Protein 5.3 g/dL (6.3-8.2)
[2022-05-23] MEDS: HYDROcodone/APAP 5-325MG 1 EACH TAB PO PRN ×5 (04:03→22:35)
[2022-05-23 04:50] LABS: Glucose,Whole Blood 109 mg/dL (70-110)
[2022-05-23] MEDS ORDERED: POTASSIUM CHLORIDE ER 20 MEQ TAB.ER PO SCH (05:00)
[2022-05-23] MEDS: KETOROLAC 15 MG/ML 1 ML VIAL IVP SCH ×3 (05:30→17:23)
--- NOTE | 2022-05-23 06:10 | PN ---
PROGRESS NOTE SUBJECTIVE: A 61-year-old lady with rheumatic mitral valve disease that underwent mitral valve replacement today. She just returned from surgery. She is doing fairly well, remains in sinus rhythm. Heart rate is 80 beats per minute, blood pressure is 106/60. Her cardiac output is 3.5 with an index of 1.9. Her PA pressures have improved significantly from prior to surgery. The current PA systolic is about 44 mm and diastolic is 23. OBJECTIVE: CHEST: Reveals diminished air entry bilaterally. HEART: Reveals first and second heart sounds. No gallop. EXTREMITIES: Did not reveal any edema. LABORATORY DATA: Showed a hemoglobin of 10.5, platelet count is 148. ASSESSMENT: 1. Rheumatic mitral valve disease, status post mitral valve replacement. 2. Tricuspid regurgitation, status post tricuspid valve ring. PLAN: The patient is doing well. The patient is intubated and on vent, hopefully will be extubated tomorrow morning, but so far in the perioperative period she has done exceptionally well. PA pressures have come down, requiring very little support given the low cardiac index. MMODL / IJN: [id number] /
[2022-05-23 06:23] LABS: Glucose,Whole Blood 159 mg/dL (70-110)
[2022-05-23 06:51] LABS: Glucose,Whole Blood 163 mg/dL (70-110)
[2022-05-23] MEDS ORDERED: ACETAMINOPHEN TAB 325 MG TAB PO PRN (07:27)
--- NOTE | 2022-05-23 07:51 | XR ---
EXAMINATION TYPE: XR chest 1V portable DATE OF EXAM: 05/23/2022 Comparison: 05/22/2022 Clinical History: 61-year-old female Post Operative Cardiac Surgery Findings: Right IJ [place]-Celso catheter tip at the proximal most right main pulmonary artery region. Median goldman otomy wires. There is an angioplasty ring. Diffuse interstitial densities. Increasing patchy retrocar diac and left basilar densities and a trace left pleural effusion. Heart borderline in size. Retained epicardial pacer lead. Impression: Pulmonary vascular congestion similar to slightly increased. Small left pleural effusion and patchy l eft basilar/retrocardiac atelectasis or patchy pulmonary edema also slightly increased.
[2022-05-23 08:07] LABS: Glucose,Whole Blood 165 mg/dL (70-110)
[2022-05-23] MEDS: SYMBICORT 160-4.5 MCG INHALER INHALATION SCH ×2 (08:13→20:06)
[2022-05-23] MEDS: IPRATROPIUM-ALBUTEROL 3 ML NEB INHALATION SCH ×4 (08:13→20:06)
[2022-05-23] MEDS ORDERED: FUROSEMIDE 10 MG/ML 2 ML VIAL IV ONE ×2 (08:34→16:59)
[2022-05-23] MEDS: CLOPIDOGREL 75 MG TAB PO SCH (08:34)
[2022-05-23] MEDS: ASPIRIN 325 MG TAB PO SCH (08:34)
[2022-05-23] MEDS: HEPARIN SODIUM,PORCINE/PF 5,000 UNIT/0.5 ML SYRINGE SQ SCH ×2 (08:34→16:24)
[2022-05-23] MEDS: CITALOPRAM HYDROBROMIDE 20 MG TAB PO SCH ×2 (08:35→20:13)
[2022-05-23] MEDS: ATORVASTATIN 40 MG TAB PO SCH (08:35)
[2022-05-23] MEDS: MILRINONE-D5W PMX 20 MG in DEXTROSE/WATER 1 100ML.BAG IV SCH (08:39)
[2022-05-23] MEDS: AMIODARONE 200 MG TAB PO SCH ×2 (08:41→20:14)
--- NOTE | 2022-05-23 08:48 | P.PN ---
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 History of mild nonobstructive coronary artery disease, hypertension, hyperlipidemia, previous tobacco dependence with recent cessation, severe COPD, supraventricular tachycardia, depression, remote history of pneumonia, and family history of coronary artery disease POD #1 chordal preserving mitral valve replacement using a 27 mm Mosaic porcine bioprosthesis, tricuspid valve repair with ring annuloplasty using a 28 mm MC3 ring, exclusion of the left atrial appendage using a 35 mm AtriClip, intraoperative transesophageal echocardiogram and epi-aortic scanning Postoperative acute blood loss anemia, expected given hemodilution and cardiopulmonary bypass pump The patient was seen and examined with morning sitting up in a recliner intensive care unit in no acute distress. She was successfully extubated yesterday at 19:06. Denies pain or shortness of breath. Currently sinus tach with heart rate in the low 100s, hemodynamically stable on IV Primacor and amiodarone. She had a relatively uneventful evening. Right internal jugular [place]/cordis, right brachial arterial line, mediastinal/right pleural chest tubes all remain. No other new concerns. Objective - Vital Signs Vital signs: Vital Signs Temp 97.9 F 05/23/22 04:00 Pulse 110 H 05/23/22 07:00 Resp 23 05/23/22 07:00 BP 117/58 05/23/22 07:00 Pulse Ox 94 L 05/23/22 07:00 FiO2 50 05/22/22 16:00 Intake & Output 05/22/22 05/23/22 05/23/22 18:59 06:59 18:59 Intake Total 2283.598 3052.976 Output Total 3740 905 Balance -2372.630 860.976 Weight 82.9 kg Intake: IV 1302 1120 0.9 250 650 ACETAMINOPHEN IV (For NPO 200 ) 1,000 mg In Empty Bag 1 bag @ 400 mls/hr IVPB Q6HR [facility] Rx#:[id number] Albumin Human 5% 250 ml 1000 In Empty Bag 1 bag @ 250 mls/hr IVPB Q1HR PRN Rx#: [id number] CO/CI 70 Potassium Chloride 20 meq 100 In Water For Injection 1 100ml.bag @ 50 mls/hr IVPB ONCE STA Rx#: [id number] ceFAZolin 2 gm In Sodium 100 Chloride 0.9% 50 ml @ 100 mls/hr IVPB Q8HR [facility] Rx# :[id number] Intake, IV Titration 65.370 105.976 Amount Clevidipine Butyrate 25 10.767 mg In Empty Bag 1 bag @ 1 MG/HR 2 mls/hr IV .Q24H [facility] Rx#:[id number] Insulin Regular 100 unit 13.290 54.609 In Sodium Chloride 0.9% 100 ml @ Per Protocol IV .Q0M [facility] Rx#:[id number] Milrinone-D5w Pmx 20 mg 7.2 40.6 In Dextrose/Water 1 100ml .bag @ Per Protocol IV . Q0M [facility] Rx#:[id number] propofoL 1,000 mg In 44.88 Empty Bag 1 bag @ Titrate IV .Q0M [facility] Rx#: [id number] Oral 540 Output: Chest Tube Drainage 420 460 Mediastinal x 2 340 290 Right Pleural 80 170 Urine 820 445 Estimated Blood Loss 2500 Other: Voiding Method Indwelling Catheter Indwelling Catheter ABP, PAP, CO, CI - Last Documented Arterial Blood Pressure 120/59 Pulmonary Artery Pressure 38/14 Cardiac Output 5.7 Cardiac Index 3.1 - Exam CONSTITUTIONAL: Appears comfortable, cooperative, no acute distress RESPIRATORY: Lungs sounds diminished bilaterally. Respirations even, nonlabored. Currently on 3 L nasal cannula with oxygen saturation 94%. Able to achieve 750 mL on incentive spirometry. Strong nonproductive cough. CARDIOVASCULAR: S1, S2 present. Tachy, regular rate and rhythm, sinus tach on telemetry. Sternum stable. Palpable peripheral pulses bilaterally. No edema present. No calf pain or tenderness noted. Heart hugger in place with patient demonstrating appropriate use. Antiembolism stockings, SCDs present. GASTROINTESTINAL: Abdomen soft, nontender, nondistended. Hypoactive bowel sounds present 4 quadrants. Tolerating clear liquids. Positive flatus GENITOURINARY: Crespo present draining clear, yellow urine. Output overnight 30-40 mL per hour INTEGUMENTARY: Skin is warm and dry with evidence of good perfusion. Anterior chest incision well approximated and covered with dry intact dressing NEUROLOGIC: Cranial nerves II through XII intact MUSKULOSKELETAL: Able to move all extremities, strength equal bilaterally, gait normal PSYCHIATRIC: Alert and oriented to person place and time, appropriate affect, intact judgment and insight INVASIVE LINES AND TUBES: Mediastinal/right pleural chest tubes present and connected to wall suction, no air leaks present. Mediastinal tube with 170 mL serosanguineous drainage overnight, 650 mL since surgery. Right pleural chest tube with 70 mL serosanguineous drainage overnight, 250 mL since surgery. A/V epicardial pacemaker wires present, grounded. Right internal jugular [place]/Cordis, right brachial arterial line present. Last CO/CI 5.7/3.1, PA 44/1 6, CVP 13. - Allied health notes Allied health notes reviewed: nursing - Labs CBC & Chem 7: 05/23/22 03:23 05/23/22 03:23 Labs: Abnormal Lab Results - Last 24 Hours (Table) 05/21/22 05/22/22 05/22/22 Range/Units 10:38 08:34 09:37 WBC (3.8-10.6) k/uL RBC (3.80-5.40) m/uL Hgb (11.4-16.0) gm/dL Hct (34.0-46.0) % Plt Count (150-450) k/uL Neutrophils # (1.3-7.7) k/uL Lymphocytes # (1.0-4.8) k/uL INR (<1.2) APTT (22.0-30.0) sec ABG pH (7.35-7.45) ABG pCO2 55 H 47 H (35-45) mmHg ABG pO2 >420 H >420 H (83-108) mmHg ABG HCO3 32 H 31 H (21-25) mmol/L ABG Total CO2 34 H 32 H (19-24) mmol/L ABG O2 Saturation 100.0 H 100.0 H (94-97) % ABG Hematocrit (34.0-46.0) % ABG Potassium (3.4-4.5) mmol/L ABG Ionized Calcium (4.5-5.3) mg/dL ABG Glucose 120 H 134 H (75-99) mg/dL ABG Lactic Acid (0.5-1.6) mmol/L Hemoglobin (11.4-16.0) gm/dL Chloride (98-107) mmol/L BUN (7-17) mg/dL Glucose (74-99) mg/dL POC Glucose (mg/dL) (70-110) mg/dL Calcium (8.4-10.2) mg/dL Magnesium (1.6-2.3) mg/dL AST (14-36) U/L Total Protein (6.3-8.2) g/dL Albumin (3.5-5.0) g/dL Arterial Blood Potassium (3.4-4.5) mmol/L Arterial Blood Glucose 120 H 134 H (75-99) mg/dL Crossmatch See Detail 05/22/22 05/22/22 05/22/22 Range/Units 10:11 10:45 11:17 WBC (3.8-10.6) k/uL RBC (3.80-5.40) m/uL Hgb (11.4-16.0) gm/dL Hct (34.0-46.0) % Plt Count (150-450) k/uL Neutrophils # (1.3-7.7) k/uL Lymphocytes # (1.0-4.8) k/uL INR (<1.2) APTT (22.0-30.0) sec ABG pH 7.47 H (7.35-7.45) ABG pCO2 (35-45) mmHg ABG pO2 >420 H 327 H 305 H (83-108) mmHg ABG HCO3 29 H 30 H 30 H (21-25) mmol/L ABG Total CO2 30 H 31 H 31 H (19-24) mmol/L ABG O2 Saturation 100.0 H 100.0 H 100.0 H (94-97) % ABG Hematocrit 31 L 28 L 30 L (34.0-46.0) % ABG Potassium 4.7 H 4.7 H (3.4-4.5) mmol/L ABG Ionized Calcium 4.0 L 4.0 L 4.0 L (4.5-5.3) mg/dL ABG Glucose 146 H 146 H 157 H (75-99) mg/dL ABG Lactic Acid (0.5-1.6) mmol/L Hemoglobin 9.9 L 9.2 L 9.9 L (11.4-16.0) gm/dL Chloride (98-107) mmol/L BUN (7-17) mg/dL Glucose (74-99) mg/dL POC Glucose (mg/dL) (70-110) mg/dL Calcium (8.4-10.2) mg/dL Magnesium (1.6-2.3) mg/dL AST (14-36) U/L Total Protein (6.3-8.2) g/dL Albumin (3.5-5.0) g/dL Arterial Blood Potassium 4.7 H 4.7 H (3.4-4.5) mmol/L Arterial Blood Glucose 146 H 146 H 157 H (75-99) mg/dL Crossmatch 05/22/22 05/22/22 05/22/22 Range/Units 11:51 13:05 13:32 WBC (3.8-10.6) k/uL RBC (3.80-5.40) m/uL Hgb (11.4-16.0) gm/dL Hct (34.0-46.0) % Plt Count (150-450) k/uL Neutrophils # (1.3-7.7) k/uL Lymphocytes # (1.0-4.8) k/uL INR (<1.2) APTT (22.0-30.0) sec ABG pH 7.28 L (7.35-7.45) ABG pCO2 59 H (35-45) mmHg ABG pO2 351 H 80 L (83-108) mmHg ABG HCO3 28 H 28 H (21-25) mmol/L ABG Total CO2 29 H 30 H (19-24) mmol/L ABG O2 Saturation 100.0 H (94-97) % ABG Hematocrit 27 L (34.0-46.0) % ABG Potassium 4.7 H (3.4-4.5) mmol/L ABG Ionized Calcium 5.9 H (4.5-5.3) mg/dL ABG Glucose 162 H 160 H (75-99) mg/dL ABG Lactic Acid 2.0 H 1.9 H (0.5-1.6) mmol/L Hemoglobin 8.9 L (11.4-16.0) gm/dL Chloride (98-107) mmol/L BUN (7-17) mg/dL Glucose (74-99) mg/dL POC Glucose (mg/dL) 159 H (70-110) mg/dL Calcium (8.4-10.2) mg/dL Magnesium (1.6-2.3) mg/dL AST (14-36) U/L Total Protein (6.3-8.2) g/dL Albumin (3.5-5.0) g/dL Arterial Blood Potassium 4.7 H (3.4-4.5) mmol/L Arterial Blood Glucose 162 H 160 H (75-99) mg/dL Crossmatch 05/22/22 05/22/22 05/22/22 Range/Units 13:35 13:35 13:35 WBC 13.2 H (3.8-10.6) k/uL RBC (3.80-5.40) m/uL Hgb (11.4-16.0) gm/dL Hct (34.0-46.0) % Plt Count 148 L D (150-450) k/uL Neutrophils # 11.7 H (1.3-7.7) k/uL Lymphocytes # 0.7 L (1.0-4.8) k/uL INR 1.2 H (<1.2) APTT 111.6 H* (22.0-30.0) sec ABG pH (7.35-7.45) ABG pCO2 (35-45) mmHg ABG pO2 (83-108) mmHg ABG HCO3 (21-25) mmol/L ABG Total CO2 (19-24) mmol/L ABG O2 Saturation (94-97) % ABG Hematocrit (34.0-46.0) % ABG Potassium (3.4-4.5) mmol/L ABG Ionized Calcium (4.5-5.3) mg/dL ABG Glucose (75-99) mg/dL ABG Lactic Acid (0.5-1.6) mmol/L Hemoglobin (11.4-16.0) gm/dL Chloride (98-107) mmol/L BUN 20 H (7-17) mg/dL Glucose 152 H (74-99) mg/dL POC Glucose (mg/dL) (70-110) mg/dL Calcium 7.9 L (8.4-10.2) mg/dL Magnesium 3.1 H (1.6-2.3) mg/dL AST 61 H (14-36) U/L Total Protein 4.7 L (6.3-8.2) g/dL Albumin 2.8 L (3.5-5.0) g/dL Arterial Blood Potassium (3.4-4.5) mmol/L Arterial Blood Glucose (75-99) mg/dL Crossmatch 05/22/22 05/22/22 05/22/22 Range/Units 13:57 13:57 14:56 WBC (3.8-10.6) k/uL RBC (3.80-5.40) m/uL Hgb (11.4-16.0) gm/dL Hct (34.0-46.0) % Plt Count (150-450) k/uL Neutrophils # (1.3-7.7) k/uL Lymphocytes # (1.0-4.8) k/uL INR (<1.2) APTT (22.0-30.0) sec ABG pH 7.31 L (7.35-7.45) ABG pCO2 57 H (35-45) mmHg ABG pO2 357 H (83-108) mmHg ABG HCO3 28 H (21-25) mmol/L ABG Total CO2 30 H (19-24) mmol/L ABG O2 Saturation 100.0 H (94-97) % ABG Hematocrit (34.0-46.0) % ABG Potassium (3.4-4.5) mmol/L ABG Ionized Calcium (4.5-5.3) mg/dL ABG Glucose (75-99) mg/dL ABG Lactic Acid (0.5-1.6) mmol/L Hemoglobin (11.4-16.0) gm/dL Chloride (98-107) mmol/L BUN (7-17) mg/dL Glucose (74-99) mg/dL POC Glucose (mg/dL) 152 H 168 H (70-110) mg/dL Calcium (8.4-10.2) mg/dL Magnesium (1.6-2.3) mg/dL AST (14-36) U/L Total Protein (6.3-8.2) g/dL Albumin (3.5-5.0) g/dL Arterial Blood Potassium (3.4-4.5) mmol/L Arterial Blood Glucose (75-99) mg/dL Crossmatch 05/22/22 05/22/22 05/22/22 Range/Units 15:44 15:56 16:30 WBC 12.5 H (3.8-10.6) k/uL RBC 3.39 L (3.80-5.40) m/uL Hgb 10.5 L (11.4-16.0) gm/dL Hct 32.1 L (34.0-46.0) % Plt Count 148 L (150-450) k/uL Neutrophils # 10.7 H (1.3-7.7) k/uL Lymphocytes # 0.9 L (1.0-4.8) k/uL INR (<1.2) APTT (22.0-30.0) sec ABG pH 7.29 L (7.35-7.45) ABG pCO2 62 H (35-45) mmHg ABG pO2 35 L* (83-108) mmHg ABG HCO3 30 H (21-25) mmol/L ABG Total CO2 31 H (19-24) mmol/L ABG O2 Saturation 57.0 L (94-97) % ABG Hematocrit (34.0-46.0) % ABG Potassium (3.4-4.5) mmol/L ABG Ionized Calcium (4.5-5.3) mg/dL ABG Glucose (75-99) mg/dL ABG Lactic Acid (0.5-1.6) mmol/L Hemoglobin (11.4-16.0) gm/dL Chloride (98-107) mmol/L BUN (7-17) mg/dL Glucose (74-99) mg/dL POC Glucose (mg/dL) 160 H (70-110) mg/dL Calcium (8.4-10.2) mg/dL Magnesium (1.6-2.3) mg/dL AST (14-36) U/L Total Protein (6.3-8.2) g/dL Albumin (3.5-5.0) g/dL Arterial Blood Potassium (3.4-4.5) mmol/L Arterial Blood Glucose (75-99) mg/dL Crossmatch 05/22/22 05/22/22 05/22/22 Range/Units 16:58 18:06 18:54 WBC (3.8-10.6) k/uL RBC (3.80-5.40) m/uL Hgb (11.4-16.0) gm/dL Hct (34.0-46.0) % Plt Count (150-450) k/uL Neutrophils # (1.3-7.7) k/uL Lymphocytes # (1.0-4.8) k/uL INR (<1.2) APTT (22.0-30.0) sec ABG pH (7.35-7.45) ABG pCO2 49 H (35-45) mmHg ABG pO2 (83-108) mmHg ABG HCO3 28 H (21-25) mmol/L ABG Total CO2 29 H (19-24) mmol/L ABG O2 Saturation 98.9 H (94-97) % ABG Hematocrit (34.0-46.0) % ABG Potassium (3.4-4.5) mmol/L ABG Ionized Calcium (4.5-5.3) mg/dL ABG Glucose (75-99) mg/dL ABG Lactic Acid (0.5-1.6) mmol/L Hemoglobin (11.4-16.0) gm/dL Chloride (98-107) mmol/L BUN (7-17) mg/dL Glucose (74-99) mg/dL POC Glucose (mg/dL) 153 H 151 H (70-110) mg/dL Calcium (8.4-10.2) mg/dL Magnesium (1.6-2.3) mg/dL AST (14-36) U/L Total Protein (6.3-8.2) g/dL Albumin (3.5-5.0) g/dL Arterial Blood Potassium (3.4-4.5) mmol/L Arterial Blood Glucose (75-99) mg/dL Crossmatch 05/22/22 05/22/22 05/22/22 Range/Units 19:23 19:24 20:12 WBC 12.2 H (3.8-10.6) k/uL RBC 3.23 L (3.80-5.40) m/uL Hgb 10.1 L (11.4-16.0) gm/dL Hct 30.4 L (34.0-46.0) % Plt Count (150-450) k/uL Neutrophils # 10.9 H (1.3-7.7) k/uL Lymphocytes # 0.4 L (1.0-4.8) k/uL INR (<1.2) APTT (22.0-30.0) sec ABG pH (7.35-7.45) ABG pCO2 (35-45) mmHg ABG pO2 (83-108) mmHg ABG HCO3 (21-25) mmol/L ABG Total CO2 (19-24) mmol/L ABG O2 Saturation (94-97) % ABG Hematocrit (34.0-46.0) % ABG Potassium (3.4-4.5) mmol/L ABG Ionized Calcium (4.5-5.3) mg/dL ABG Glucose (75-99) mg/dL ABG Lactic Acid (0.5-1.6) mmol/L Hemoglobin (11.4-16.0) gm/dL Chloride (98-107) mmol/L BUN (7-17) mg/dL Glucose (74-99) mg/dL POC Glucose (mg/dL) 150 H 147 H (70-110) mg/dL Calcium (8.4-10.2) mg/dL Magnesium (1.6-2.3) mg/dL AST (14-36) U/L Total Protein (6.3-8.2) g/dL Albumin (3.5-5.0) g/dL Arterial Blood Potassium (3.4-4.5) mmol/L Arterial Blood Glucose (75-99) mg/dL Crossmatch 05/22/22 05/22/22 05/22/22 Range/Units 20:55 22:17 23:07 WBC (3.8-10.6) k/uL RBC (3.80-5.40) m/uL Hgb (11.4-16.0) gm/dL Hct (34.0-46.0) % Plt Count (150-450) k/uL Neutrophils # (1.3-7.7) k/uL Lymphocytes # (1.0-4.8) k/uL INR (<1.2) APTT (22.0-30.0) sec ABG pH (7.35-7.45) ABG pCO2 (35-45) mmHg ABG pO2 (83-108) mmHg ABG HCO3 (21-25) mmol/L ABG Total CO2 (19-24) mmol/L ABG O2 Saturation (94-97) % ABG Hematocrit (34.0-46.0) % ABG Potassium (3.4-4.5) mmol/L ABG Ionized Calcium (4.5-5.3) mg/dL ABG Glucose (75-99) mg/dL ABG Lactic Acid (0.5-1.6) mmol/L Hemoglobin (11.4-16.0) gm/dL Chloride (98-107) mmol/L BUN (7-17) mg/dL Glucose (74-99) mg/dL POC Glucose (mg/dL) 137 H 142 H 138 H (70-110) mg/dL Calcium (8.4-10.2) mg/dL Magnesium (1.6-2.3) mg/dL AST (14-36) U/L Total Protein (6.3-8.2) g/dL Albumin (3.5-5.0) g/dL Arterial Blood Potassium (3.4-4.5) mmol/L Arterial Blood Glucose (75-99) mg/dL Crossmatch 05/23/22 05/23/22 05/23/22 Range/Units 00:02 01:13 02:12 WBC (3.8-10.6) k/uL RBC (3.80-5.40) m/uL Hgb (11.4-16.0) gm/dL Hct (34.0-46.0) % Plt Count (150-450) k/uL Neutrophils # (1.3-7.7) k/uL Lymphocytes # (1.0-4.8) k/uL INR (<1.2) APTT (22.0-30.0) sec ABG pH (7.35-7.45) ABG pCO2 (35-45) mmHg ABG pO2 (83-108) mmHg ABG HCO3 (21-25) mmol/L ABG Total CO2 (19-24) mmol/L ABG O2 Saturation (94-97) % ABG Hematocrit (34.0-46.0) % ABG Potassium (3.4-4.5) mmol/L ABG Ionized Calcium (4.5-5.3) mg/dL ABG Glucose (75-99) mg/dL ABG Lactic Acid (0.5-1.6) mmol/L Hemoglobin (11.4-16.0) gm/dL Chloride (98-107) mmol/L BUN (7-17) mg/dL Glucose (74-99) mg/dL POC Glucose (mg/dL) 131 H 122 H 119 H (70-110) mg/dL Calcium (8.4-10.2) mg/dL Magnesium (1.6-2.3) mg/dL AST (14-36) U/L Total Protein (6.3-8.2) g/dL Albumin (3.5-5.0) g/dL Arterial Blood Potassium (3.4-4.5) mmol/L Arterial Blood Glucose (75-99) mg/dL Crossmatch 05/23/22 05/23/22 05/23/22 Range/Units 03:12 03:23 03:23 WBC 13.3 H (3.8-10.6) k/uL RBC 3.02 L (3.80-5.40) m/uL Hgb 9.4 L (11.4-16.0) gm/dL Hct 28.3 L (34.0-46.0) % Plt Count (150-450) k/uL Neutrophils # 11.4 H (1.3-7.7) k/uL Lymphocytes # 0.6 L (1.0-4.8) k/uL INR (<1.2) APTT (22.0-30.0) sec ABG pH (7.35-7.45) ABG pCO2 (35-45) mmHg ABG pO2 (83-108) mmHg ABG HCO3 (21-25) mmol/L ABG Total CO2 (19-24) mmol/L ABG O2 Saturation (94-97) % ABG Hematocrit (34.0-46.0) % ABG Potassium (3.4-4.5) mmol/L ABG Ionized Calcium (4.5-5.3) mg/dL ABG Glucose (75-99) mg/dL ABG Lactic Acid (0.5-1.6) mmol/L Hemoglobin (11.4-16.0) gm/dL Chloride 109 H (98-107) mmol/L BUN 20 H (7-17) mg/dL Glucose 108 H (74-99) mg/dL POC Glucose (mg/dL) 119 H (70-110) mg/dL Calcium (8.4-10.2) mg/dL Magnesium (1.6-2.3) mg/dL AST 82 H (14-36) U/L Total Protein 5.3 L (6.3-8.2) g/dL Albumin (3.5-5.0) g/dL Arterial Blood Potassium (3.4-4.5) mmol/L Arterial Blood Glucose (75-99) mg/dL Crossmatch 05/23/22 05/23/22 Range/Units 06:22 06:50 WBC (3.8-10.6) k/uL RBC (3.80-5.40) m/uL Hgb (11.4-16.0) gm/dL Hct (34.0-46.0) % Plt Count (150-450) k/uL Neutrophils # (1.3-7.7) k/uL Lymphocytes # (1.0-4.8) k/uL INR (<1.2) APTT (22.0-30.0) sec ABG pH (7.35-7.45) ABG pCO2 (35-45) mmHg ABG pO2 (83-108) mmHg ABG HCO3 (21-25) mmol/L ABG Total CO2 (19-24) mmol/L ABG O2 Saturation (94-97) % ABG Hematocrit (34.0-46.0) % ABG Potassium (3.4-4.5) mmol/L ABG Ionized Calcium (4.5-5.3) mg/dL ABG Glucose (75-99) mg/dL ABG Lactic Acid (0.5-1.6) mmol/L Hemoglobin (11.4-16.0) gm/dL Chloride (98-107) mmol/L BUN (7-17) mg/dL Glucose (74-99) mg/dL POC Glucose (mg/dL) 159 H 163 H (70-110) mg/dL Calcium (8.4-10.2) mg/dL Magnesium (1.6-2.3) mg/dL AST (14-36) U/L Total Protein (6.3-8.2) g/dL Albumin (3.5-5.0) g/dL Arterial Blood Potassium (3.4-4.5) mmol/L Arterial Blood Glucose (75-99) mg/dL Crossmatch - Imaging and Cardiology Chest x-ray: report reviewed, image reviewed Assessment and Plan Assessment: 1. 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 Preserved left ventricular systolic function, moderate right ventricular dysfunction, EF 55-60% 3. Moderate tricuspid valve regurgitation, status post tricuspid valve repair 4. Acute on chronic diastolic heart failure 5. Transaminitis 6. History of mild nonobstructive coronary artery disease 7. Hypertension 8. Hyperlipidemia, treated, cholesterol 196, LDL 99, triglycerides 254 9. Previous tobacco dependence with recent cessation 10. Severe COPD, preoperative FEV1 42% of predicted 11. History of supraventricular tachycardia 12. Depression 13. Remote history of pneumonia 14. Family history of coronary artery disease 15. Postoperative acute blood loss anemia, expected Plan: 1. Continue to maximize medical therapy with aspirin, statin, Plavix, beta vince. Will increase beta vince therapy as tolerated. 2. Continue amiodarone for A. fib prophylaxis, transition to oral 3. Will wean Primacor as tolerated 4. Wean O2 as tolerated. Encourage incentive spirometry 10 times every hour while awake. Bronchodilators per pulmonology 5. Increase activity as tolerated. PT/OT/cardiac rehab consulted 6. Will monitor daily labs and x-rays. Electrolyte replacement per protocol. Will give 20 mg IV push Lasix today 7. GI/DVT prophylaxis 8. Pain control with current medication regimen 9. Insulin management per internal medicine service. Preoperative hemoglobin A1c 6.4% 10. Continue [place]/Cordis, arterial line for another 24 hours 11. Continue mediastinal/right pleural chest tubes for another 24 hours 12. Continue Crespo catheter for another 24 hours for strict accurate intake and output. Daily weights 13. More recommendations to follow
[2022-05-23 09:00] LABS: Glucose,Whole Blood 183 mg/dL (70-110)
[2022-05-23] MEDS ORDERED: METOPROLOL TARTRATE 12.5 MG TAB PO SCH (09:00)
[2022-05-23] MEDS ORDERED: MAGNESIUM HYDROXIDE 2,400 MG/10 ML CUP PO PRN (09:00)
[2022-05-23] MEDS ORDERED: PANTOPRAZOLE 40 MG/10 ML VIAL IVP SCH (09:00)
[2022-05-23] MEDS ORDERED: METOPROLOL TARTRATE 12.5 MG TAB PO STA (09:20)
[2022-05-23 10:17] LABS: Glucose,Whole Blood 126 mg/dL (70-110)
[2022-05-23 10:32] VITALS: BMI 32.3
[2022-05-23 11:11] LABS: Glucose,Whole Blood 102 mg/dL (70-110)
--- NOTE | 2022-05-23 11:47 | P.PN ---
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 The patient was recently admitted to the hospital from 04/25-04/27 for similar complaints, at which time she was diagnosed with the above mitral valve disease. The patient was advised to follow-up as an outpatient for an elective mitral valve repair/replacement with cardiothoracic surgery. Upon arrival at the emergency room vital signs were within normal limits. Chest CTA revealed no evidence of PE with a right pleural effusion. EKG revealed sinus tachycardia with PVCs at 102 [address]pm with no notable ST/T-wave changes noted as reviewed by me. Laboratory evaluation was remarkable for troponin of less than 0.012, proBNP 3870, AST 132, ALT 158, and alk phos 232 with a total bilirubin 1.4. She was admitted for acute exacerbation of right- sided heart failure in the setting of severe mitral valve disease. She was started on IV diuresis and cardiology was consulted. Cardiovascular surgery was also consulted. Patient underwent open heart surgery with mitral valve replacement, tricuspid valve repair, exclusion of the left atrial appendage with a 35mm atrial clip on 05/22. She was extubated on 05/22. Patient was seen and examined. No acute events overnight. She is POD 1. Extubated successfully yesterday. General: nontoxic, no distress, appears at stated age Derm: warm, dry Head: atraumatic, normocephalic, symmetric Eyes: ROMAN, no lid lag, anicteric sclera Mouth: no lip lesion, mucus membranes moist Cardiovascular: S1S2 reg, with murmur, mediastinal and pleural chest tubes in place Lungs: Decreased BS bilateral, no rhonchi, no rales , no accessory muscle use Ext: no gross muscle atrophy, trace edema, no contractures Neuro: no focal neuro deficits Psych: Alert, oriented, appropriate affect #Acute blood loss anemia -Expected result of surgery. -Continue to monitor. #Acute exacerbation of right-sided heart failure, cor pulmonale in the setting of severe mitral valve disease #Severe mitral regurgitation with moderate to severe stenosis #Severe pulmonary hypertension #Nonobstructive coronary artery disease #Hypertension -Cardiothoracic surgery on board -Status post mitral valve replacement, tricuspid valve repair, exclusion of the left atrial appendage with a 35mm atrial clip 05/22 -Aspirin, Plavix, statin, beta vince -Strict I's and O's, daily weights #Constipation -Continue with bowel regiment #Transaminitis secondary to hepatic congestion -Improving with diuresis -Continue to monitor #Leukocytosis -Likely reactive -Monitor fever profile with daily CBC Resolved: Acute hypoxic respiratory failure Objective - Vital Signs Vital signs: Vital Signs Temp 99.0 F 05/23/22 08:00 Pulse 87 05/23/22 11:00 Resp 16 05/23/22 11:00 BP 138/69 05/23/22 11:00 Pulse Ox 97 05/23/22 11:00 FiO2 50 05/22/22 16:00 Intake & Output 05/22/22 05/23/22 05/23/22 18:59 06:59 18:59 Intake Total 9794.816 3990.976 253.101 Output Total 3740 905 370 Balance -2372.630 860.976 -116.899 Weight 82.9 kg 82.9 kg Intake: IV 1302 1120 220 0.9 250 650 110 ACETAMINOPHEN IV (For NPO 200 ) 1,000 mg In Empty Bag 1 bag @ 400 mls/hr IVPB Q6HR [facility]ON[facility] Rx#:[id number] Albumin Human 5% 250 ml 1000 In Empty Bag 1 bag @ 250 mls/hr IVPB Q1HR PRN Rx#: [id number] CO/CI 70 10 Potassium Chloride 20 meq 100 In Water For Injection 1 100ml.bag @ 50 mls/hr IVPB ONCE STA Rx#: [id number] ceFAZolin 2 gm In Sodium 100 100 Chloride 0.9% 50 ml @ 100 mls/hr IVPB Q8HR VERONICA Rx# :[id number] Intake, IV Titration 65.370 105.976 33.101 Amount Clevidipine Butyrate 25 10.767 mg In Empty Bag 1 bag @ 1 MG/HR 2 mls/hr IV .Q24H VERONICA Rx#:[id number] Insulin Regular 100 unit 13.290 54.609 33.101 In Sodium Chloride 0.9% 100 ml @ Per Protocol IV .Q0M [facility]ONICA Rx#:[id number] Milrinone-D5w Pmx 20 mg 7.2 40.6 In Dextrose/Water 1 100ml .bag @ Per Protocol IV . Q0M [facility]ONICA Rx#:[id number] propofoL 1,000 mg In 44.88 Empty Bag 1 bag @ Titrate IV .Q0M [facility]ONICA Rx#: [id number] Oral 540 Output: Chest Tube Drainage 420 460 130 Mediastinal x 2 340 290 60 Right Pleural 80 170 70 Urine 820 445 240 Estimated Blood Loss 2500 Other: Voiding Method Indwelling Catheter Indwelling Catheter Indwelling Catheter ABP, PAP, CO, CI - Last Documented Arterial Blood Pressure 132/61 Pulmonary Artery Pressure 58/27 Cardiac Output 4.9 Cardiac Index 2.7 - Labs CBC & Chem 7: 05/23/22 03:23 05/23/22 03:23 Labs: Abnormal Lab Results - Last 24 Hours (Table) 05/21/22 05/22/22 05/22/22 Range/Units 10:38 08:34 09:37 WBC (3.8-10.6) k/uL RBC (3.80-5.40) m/uL Hgb (11.4-16.0) gm/dL Hct (34.0-46.0) % Plt Count (150-450) k/uL Neutrophils # (1.3-7.7) k/uL Lymphocytes # (1.0-4.8) k/uL INR (<1.2) APTT (22.0-30.0) sec ABG pH (7.35-7.45) ABG pCO2 55 H 47 H (35-45) mmHg ABG pO2 >420 H >420 H (83-108) mmHg ABG HCO3 32 H 31 H (21-25) mmol/L ABG Total CO2 34 H 32 H (19-24) mmol/L ABG O2 Saturation 100.0 H 100.0 H (94-97) % ABG Hematocrit (34.0-46.0) % ABG Potassium (3.4-4.5) mmol/L ABG Ionized Calcium (4.5-5.3) mg/dL ABG Glucose 120 H 134 H (75-99) mg/dL ABG Lactic Acid (0.5-1.6) mmol/L Hemoglobin (11.4-16.0) gm/dL Chloride (98-107) mmol/L BUN (7-17) mg/dL Glucose (74-99) mg/dL POC Glucose (mg/dL) (70-110) mg/dL Calcium (8.4-10.2) mg/dL Magnesium (1.6-2.3) mg/dL AST (14-36) U/L Total Protein (6.3-8.2) g/dL Albumin (3.5-5.0) g/dL Arterial Blood Potassium (3.4-4.5) mmol/L Arterial Blood Glucose 120 H 134 H (75-99) mg/dL Crossmatch See Detail 05/22/22 05/22/22 05/22/22 Range/Units 10:11 10:45 11:17 WBC (3.8-10.6) k/uL RBC (3.80-5.40) m/uL Hgb (11.4-16.0) gm/dL Hct (34.0-46.0) % Plt Count (150-450) k/uL Neutrophils # (1.3-7.7) k/uL Lymphocytes # (1.0-4.8) k/uL INR (<1.2) APTT (22.0-30.0) sec ABG pH 7.47 H (7.35-7.45) ABG pCO2 (35-45) mmHg ABG pO2 >420 H 327 H 305 H (83-108) mmHg ABG HCO3 29 H 30 H 30 H (21-25) mmol/L ABG Total CO2 30 H 31 H 31 H (19-24) mmol/L ABG O2 Saturation 100.0 H 100.0 H 100.0 H (94-97) % ABG Hematocrit 31 L 28 L 30 L (34.0-46.0) % ABG Potassium 4.7 H 4.7 H (3.4-4.5) mmol/L ABG Ionized Calcium 4.0 L 4.0 L 4.0 L (4.5-5.3) mg/dL ABG Glucose 146 H 146 H 157 H (75-99) mg/dL ABG Lactic Acid (0.5-1.6) mmol/L Hemoglobin 9.9 L 9.2 L 9.9 L (11.4-16.0) gm/dL Chloride (98-107) mmol/L BUN (7-17) mg/dL Glucose (74-99) mg/dL POC Glucose (mg/dL) (70-110) mg/dL Calcium (8.4-10.2) mg/dL Magnesium (1.6-2.3) mg/dL AST (14-36) U/L Total Protein (6.3-8.2) g/dL Albumin (3.5-5.0) g/dL Arterial Blood Potassium 4.7 H 4.7 H (3.4-4.5) mmol/L Arterial Blood Glucose 146 H 146 H 157 H (75-99) mg/dL Crossmatch 05/22/22 05/22/22 05/22/22 Range/Units 11:51 13:05 13:32 WBC (3.8-10.6) k/uL RBC (3.80-5.40) m/uL Hgb (11.4-16.0) gm/dL Hct (34.0-46.0) % Plt Count (150-450) k/uL Neutrophils # (1.3-7.7) k/uL Lymphocytes # (1.0-4.8) k/uL INR (<1.2) APTT (22.0-30.0) sec ABG pH 7.28 L (7.35-7.45) ABG pCO2 59 H (35-45) mmHg ABG pO2 351 H 80 L (83-108) mmHg ABG HCO3 28 H 28 H (21-25) mmol/L ABG Total CO2 29 H 30 H (19-24) mmol/L ABG O2 Saturation 100.0 H (94-97) % ABG Hematocrit 27 L (34.0-46.0) % ABG Potassium 4.7 H (3.4-4.5) mmol/L ABG Ionized Calcium 5.9 H (4.5-5.3) mg/dL ABG Glucose 162 H 160 H (75-99) mg/dL ABG Lactic Acid 2.0 H 1.9 H (0.5-1.6) mmol/L Hemoglobin 8.9 L (11.4-16.0) gm/dL Chloride (98-107) mmol/L BUN (7-17) mg/dL Glucose (74-99) mg/dL POC Glucose (mg/dL) 159 H (70-110) mg/dL Calcium (8.4-10.2) mg/dL Magnesium (1.6-2.3) mg/dL AST (14-36) U/L Total Protein (6.3-8.2) g/dL Albumin (3.5-5.0) g/dL Arterial Blood Potassium 4.7 H (3.4-4.5) mmol/L Arterial Blood Glucose 162 H 160 H (75-99) mg/dL Crossmatch 05/22/22 05/22/22 05/22/22 Range/Units 13:35 13:35 13:35 WBC 13.2 H (3.8-10.6) k/uL RBC (3.80-5.40) m/uL Hgb (11.4-16.0) gm/dL Hct (34.0-46.0) % Plt Count 148 L D (150-450) k/uL Neutrophils # 11.7 H (1.3-7.7) k/uL Lymphocytes # 0.7 L (1.0-4.8) k/uL INR 1.2 H (<1.2) APTT 111.6 H* (22.0-30.0) sec ABG pH (7.35-7.45) ABG pCO2 (35-45) mmHg ABG pO2 (83-108) mmHg ABG HCO3 (21-25) mmol/L ABG Total CO2 (19-24) mmol/L ABG O2 Saturation (94-97) % ABG Hematocrit (34.0-46.0) % ABG Potassium (3.4-4.5) mmol/L ABG Ionized Calcium (4.5-5.3) mg/dL ABG Glucose (75-99) mg/dL ABG Lactic Acid (0.5-1.6) mmol/L Hemoglobin (11.4-16.0) gm/dL Chloride (98-107) mmol/L BUN 20 H (7-17) mg/dL Glucose 152 H (74-99) mg/dL POC Glucose (mg/dL) (70-110) mg/dL Calcium 7.9 L (8.4-10.2) mg/dL Magnesium 3.1 H (1.6-2.3) mg/dL AST 61 H (14-36) U/L Total Protein 4.7 L (6.3-8.2) g/dL Albumin 2.8 L (3.5-5.0) g/dL Arterial Blood Potassium (3.4-4.5) mmol/L Arterial Blood Glucose (75-99) mg/dL Crossmatch 05/22/22 05/22/22 05/22/22 Range/Units 13:57 13:57 14:56 WBC (3.8-10.6) k/uL RBC (3.80-5.40) m/uL Hgb (11.4-16.0) gm/dL Hct (34.0-46.0) % Plt Count (150-450) k/uL Neutrophils # (1.3-7.7) k/uL Lymphocytes # (1.0-4.8) k/uL INR (<1.2) APTT (22.0-30.0) sec ABG pH 7.31 L (7.35-7.45) ABG pCO2 57 H (35-45) mmHg ABG pO2 357 H (83-108) mmHg ABG HCO3 28 H (21-25) mmol/L ABG Total CO2 30 H (19-24) mmol/L ABG O2 Saturation 100.0 H (94-97) % ABG Hematocrit (34.0-46.0) % ABG Potassium (3.4-4.5) mmol/L ABG Ionized Calcium (4.5-5.3) mg/dL ABG Glucose (75-99) mg/dL ABG Lactic Acid (0.5-1.6) mmol/L Hemoglobin (11.4-16.0) gm/dL Chloride (98-107) mmol/L BUN (7-17) mg/dL Glucose (74-99) mg/dL POC Glucose (mg/dL) 152 H 168 H (70-110) mg/dL Calcium (8.4-10.2) mg/dL Magnesium (1.6-2.3) mg/dL AST (14-36) U/L Total Protein (6.3-8.2) g/dL Albumin (3.5-5.0) g/dL Arterial Blood Potassium (3.4-4.5) mmol/L Arterial Blood Glucose (75-99) mg/dL Crossmatch 05/22/22 05/22/22 05/22/22 Range/Units 15:44 15:56 16:30 WBC 12.5 H (3.8-10.6) k/uL RBC 3.39 L (3.80-5.40) m/uL Hgb 10.5 L (11.4-16.0) gm/dL Hct 32.1 L (34.0-46.0) % Plt Count 148 L (150-450) k/uL Neutrophils # 10.7 H (1.3-7.7) k/uL Lymphocytes # 0.9 L (1.0-4.8) k/uL INR (<1.2) APTT (22.0-30.0) sec ABG pH 7.29 L (7.35-7.45) ABG pCO2 62 H (35-45) mmHg ABG pO2 35 L* (83-108) mmHg ABG HCO3 30 H (21-25) mmol/L ABG Total CO2 31 H (19-24) mmol/L ABG O2 Saturation 57.0 L (94-97) % ABG Hematocrit (34.0-46.0) % ABG Potassium (3.4-4.5) mmol/L ABG Ionized Calcium (4.5-5.3) mg/dL ABG Glucose (75-99) mg/dL ABG Lactic Acid (0.5-1.6) mmol/L Hemoglobin (11.4-16.0) gm/dL Chloride (98-107) mmol/L BUN (7-17) mg/dL Glucose (74-99) mg/dL POC Glucose (mg/dL) 160 H (70-110) mg/dL Calcium (8.4-10.2) mg/dL Magnesium (1.6-2.3) mg/dL AST (14-36) U/L Total Protein (6.3-8.2) g/dL Albumin (3.5-5.0) g/dL Arterial Blood Potassium (3.4-4.5) mmol/L Arterial Blood Glucose (75-99) mg/dL Crossmatch 05/22/22 05/22/22 05/22/22 Range/Units 16:58 18:06 18:54 WBC (3.8-10.6) k/uL RBC (3.80-5.40) m/uL Hgb (11.4-16.0) gm/dL Hct (34.0-46.0) % Plt Count (150-450) k/uL Neutrophils # (1.3-7.7) k/uL Lymphocytes # (1.0-4.8) k/uL INR (<1.2) APTT (22.0-30.0) sec ABG pH (7.35-7.45) ABG pCO2 49 H (35-45) mmHg ABG pO2 (83-108) mmHg ABG HCO3 28 H (21-25) mmol/L ABG Total CO2 29 H (19-24) mmol/L ABG O2 Saturation 98.9 H (94-97) % ABG Hematocrit (34.0-46.0) % ABG Potassium (3.4-4.5) mmol/L ABG Ionized Calcium (4.5-5.3) mg/dL ABG Glucose (75-99) mg/dL ABG Lactic Acid (0.5-1.6) mmol/L Hemoglobin (11.4-16.0) gm/dL Chloride (98-107) mmol/L BUN (7-17) mg/dL Glucose (74-99) mg/dL POC Glucose (mg/dL) 153 H 151 H (70-110) mg/dL Calcium (8.4-10.2) mg/dL Magnesium (1.6-2.3) mg/dL AST (14-36) U/L Total Protein (6.3-8.2) g/dL Albumin (3.5-5.0) g/dL Arterial Blood Potassium (3.4-4.5) mmol/L Arterial Blood Glucose (75-99) mg/dL Crossmatch 05/22/22 05/22/22 05/22/22 Range/Units 19:23 19:24 20:12 WBC 12.2 H (3.8-10.6) k/uL RBC 3.23 L (3.80-5.40) m/uL Hgb 10.1 L (11.4-16.0) gm/dL Hct 30.4 L (34.0-46.0) % Plt Count (150-450) k/uL Neutrophils # 10.9 H (1.3-7.7) k/uL Lymphocytes # 0.4 L (1.0-4.8) k/uL INR (<1.2) APTT (22.0-30.0) sec ABG pH (7.35-7.45) ABG pCO2 (35-45) mmHg ABG pO2 (83-108) mmHg ABG HCO3 (21-25) mmol/L ABG Total CO2 (19-24) mmol/L ABG O2 Saturation (94-97) % ABG Hematocrit (34.0-46.0) % ABG Potassium (3.4-4.5) mmol/L ABG Ionized Calcium (4.5-5.3) mg/dL ABG Glucose (75-99) mg/dL ABG Lactic Acid (0.5-1.6) mmol/L Hemoglobin (11.4-16.0) gm/dL Chloride (98-107) mmol/L BUN (7-17) mg/dL Glucose (74-99) mg/dL POC Glucose (mg/dL) 150 H 147 H (70-110) mg/dL Calcium (8.4-10.2) mg/dL Magnesium (1.6-2.3) mg/dL AST (14-36) U/L Total Protein (6.3-8.2) g/dL Albumin (3.5-5.0) g/dL Arterial Blood Potassium (3.4-4.5) mmol/L Arterial Blood Glucose (75-99) mg/dL Crossmatch 05/22/22 05/22/22 05/22/22 Range/Units 20:55 22:17 23:07 WBC (3.8-10.6) k/uL RBC (3.80-5.40) m/uL Hgb (11.4-16.0) gm/dL Hct (34.0-46.0) % Plt Count (150-450) k/uL Neutrophils # (1.3-7.7) k/uL Lymphocytes # (1.0-4.8) k/uL INR (<1.2) APTT (22.0-30.0) sec ABG pH (7.35-7.45) ABG pCO2 (35-45) mmHg ABG pO2 (83-108) mmHg ABG HCO3 (21-25) mmol/L ABG Total CO2 (19-24) mmol/L ABG O2 Saturation (94-97) % ABG Hematocrit (34.0-46.0) % ABG Potassium (3.4-4.5) mmol/L ABG Ionized Calcium (4.5-5.3) mg/dL ABG Glucose (75-99) mg/dL ABG Lactic Acid (0.5-1.6) mmol/L Hemoglobin (11.4-16.0) gm/dL Chloride (98-107) mmol/L BUN (7-17) mg/dL Glucose (74-99) mg/dL POC Glucose (mg/dL) 137 H 142 H 138 H (70-110) mg/dL Calcium (8.4-10.2) mg/dL Magnesium (1.6-2.3) mg/dL AST (14-36) U/L Total Protein (6.3-8.2) g/dL Albumin (3.5-5.0) g/dL Arterial Blood Potassium (3.4-4.5) mmol/L Arterial Blood Glucose (75-99) mg/dL Crossmatch 05/23/22 05/23/22 05/23/22 Range/Units 00:02 01:13 02:12 WBC (3.8-10.6) k/uL RBC (3.80-5.40) m/uL Hgb (11.4-16.0) gm/dL Hct (34.0-46.0) % Plt Count (150-450) k/uL Neutrophils # (1.3-7.7) k/uL Lymphocytes # (1.0-4.8) k/uL INR (<1.2) APTT (22.0-30.0) sec ABG pH (7.35-7.45) ABG pCO2 (35-45) mmHg ABG pO2 (83-108) mmHg ABG HCO3 (21-25) mmol/L ABG Total CO2 (19-24) mmol/L ABG O2 Saturation (94-97) % ABG Hematocrit (34.0-46.0) % ABG Potassium (3.4-4.5) mmol/L ABG Ionized Calcium (4.5-5.3) mg/dL ABG Glucose (75-99) mg/dL ABG Lactic Acid (0.5-1.6) mmol/L Hemoglobin (11.4-16.0) gm/dL Chloride (98-107) mmol/L BUN (7-17) mg/dL Glucose (74-99) mg/dL POC Glucose (mg/dL) 131 H 122 H 119 H (70-110) mg/dL Calcium (8.4-10.2) mg/dL Magnesium (1.6-2.3) mg/dL AST (14-36) U/L Total Protein (6.3-8.2) g/dL Albumin (3.5-5.0) g/dL Arterial Blood Potassium (3.4-4.5) mmol/L Arterial Blood Glucose (75-99) mg/dL Crossmatch 05/23/22 05/23/22 05/23/22 Range/Units 03:12 03:23 03:23 WBC 13.3 H (3.8-10.6) k/uL RBC 3.02 L (3.80-5.40) m/uL Hgb 9.4 L (11.4-16.0) gm/dL Hct 28.3 L (34.0-46.0) % Plt Count (150-450) k/uL Neutrophils # 11.4 H (1.3-7.7) k/uL Lymphocytes # 0.6 L (1.0-4.8) k/uL INR (<1.2) APTT (22.0-30.0) sec ABG pH (7.35-7.45) ABG pCO2 (35-45) mmHg ABG pO2 (83-108) mmHg ABG HCO3 (21-25) mmol/L ABG Total CO2 (19-24) mmol/L ABG O2 Saturation (94-97) % ABG Hematocrit (34.0-46.0) % ABG Potassium (3.4-4.5) mmol/L ABG Ionized Calcium (4.5-5.3) mg/dL ABG Glucose (75-99) mg/dL ABG Lactic Acid (0.5-1.6) mmol/L Hemoglobin (11.4-16.0) gm/dL Chloride 109 H (98-107) mmol/L BUN 20 H (7-17) mg/dL Glucose 108 H (74-99) mg/dL POC Glucose (mg/dL) 119 H (70-110) mg/dL Calcium (8.4-10.2) mg/dL Magnesium (1.6-2.3) mg/dL AST 82 H (14-36) U/L Total Protein 5.3 L (6.3-8.2) g/dL Albumin (3.5-5.0) g/dL Arterial Blood Potassium (3.4-4.5) mmol/L Arterial Blood Glucose (75-99) mg/dL Crossmatch 05/23/22 05/23/22 05/23/22 Range/Units 06:22 06:50 08:05 WBC (3.8-10.6) k/uL RBC (3.80-5.40) m/uL Hgb (11.4-16.0) gm/dL Hct (34.0-46.0) % Plt Count (150-450) k/uL Neutrophils # (1.3-7.7) k/uL Lymphocytes # (1.0-4.8) k/uL INR (<1.2) APTT (22.0-30.0) sec ABG pH (7.35-7.45) ABG pCO2 (35-45) mmHg ABG pO2 (83-108) mmHg ABG HCO3 (21-25) mmol/L ABG Total CO2 (19-24) mmol/L ABG O2 Saturation (94-97) % ABG Hematocrit (34.0-46.0) % ABG Potassium (3.4-4.5) mmol/L ABG Ionized Calcium (4.5-5.3) mg/dL ABG Glucose (75-99) mg/dL ABG Lactic Acid (0.5-1.6) mmol/L Hemoglobin (11.4-16.0) gm/dL Chloride (98-107) mmol/L BUN (7-17) mg/dL Glucose (74-99) mg/dL POC Glucose (mg/dL) 159 H 163 H 165 H (70-110) mg/dL Calcium (8.4-10.2) mg/dL Magnesium (1.6-2.3) mg/dL AST (14-36) U/L Total Protein (6.3-8.2) g/dL Albumin (3.5-5.0) g/dL Arterial Blood Potassium (3.4-4.5) mmol/L Arterial Blood Glucose (75-99) mg/dL Crossmatch 05/23/22 05/23/22 Range/Units 08:58 10:16 WBC (3.8-10.6) k/uL RBC (3.80-5.40) m/uL Hgb (11.4-16.0) gm/dL Hct (34.0-46.0) % Plt Count (150-450) k/uL Neutrophils # (1.3-7.7) k/uL Lymphocytes # (1.0-4.8) k/uL INR (<1.2) APTT (22.0-30.0) sec ABG pH (7.35-7.45) ABG pCO2 (35-45) mmHg ABG pO2 (83-108) mmHg ABG HCO3 (21-25) mmol/L ABG Total CO2 (19-24) mmol/L ABG O2 Saturation (94-97) % ABG Hematocrit (34.0-46.0) % ABG Potassium (3.4-4.5) mmol/L ABG Ionized Calcium (4.5-5.3) mg/dL ABG Glucose (75-99) mg/dL ABG Lactic Acid (0.5-1.6) mmol/L Hemoglobin (11.4-16.0) gm/dL Chloride (98-107) mmol/L BUN (7-17) mg/dL Glucose (74-99) mg/dL POC Glucose (mg/dL) 183 H 126 H (70-110) mg/dL Calcium (8.4-10.2) mg/dL Magnesium (1.6-2.3) mg/dL AST (14-36) U/L Total Protein (6.3-8.2) g/dL Albumin (3.5-5.0) g/dL Arterial Blood Potassium (3.4-4.5) mmol/L Arterial Blood Glucose (75-99) mg/dL Crossmatch
[2022-05-23] MEDS: AMIODARONE 450 MG in DEXTROSE 5% IN WATER 250 ML IV SCH ×2 (12:38)
[2022-05-23] MEDS: SODIUM CHLORIDE 0.9% 1,000 ML IV SCH (12:40)
--- NOTE | 2022-05-23 12:49 | P.PN ---
Subjective Progress Note Date: 05/23/22 Principal diagnosis: Acute congestive heart failure secondary to severe mitral regurgitation/stenosis On today's evaluation of 05/18/2022, the patient is being seen for a follow-up. She was seen in consultation yesterday. The patient is still comfortable. She is alert and oriented 3. She continues to diabetes and the patient is receiving Lasix 40 mg IV every 12 hours. Her BUN is stable at 60 with 0.6. Her Sodium Is at 139 with a Potassium Level of 3.4 and the Patient Is in a Negative Fluid Balance. The Patient Is Overall Improving. Repeat ProBNP Level Was 1700. She Is Ambulating. She Is Using the Incentive Spirometer. Pulse Ox on Room Air Is around 95%. She Denies Having Any Chest Pain. She Denies Having Any Other Complaints. She Is Afebrile. No Other Issues Otherwise for Now. 27 2021, the patient remains in negative fluid balance as the patient is re ceiving Lasix 40 mg every 12 hours. Fluid balance was -1140 yesterday. In terms of her lungs work, the patient has a stable BUN of 25 with a creatinine of 0.7. Sodium is at 138. Potassium level was replaced and currently is up to 4.1. The white cell count at 7.1 with a hemoglobin of 14.1. The patient is currently on room air oxygen and she is carrying a pulse ox of 94%. She is ambulating. No chest pain. No extremity edema is improved. The patient is looking forward for surgery and we don't have the final date yet. The patient is seen today 05/20/2022 in follow-up on the selective care unit. She is sitting up at the bedside. Awake and alert in no acute distress. No worsening shortness of breath, cough or congestion. She is maintaining good O2 saturations in the 90s on room air. Chest x-ray showing improvement. The plan is for possible mitral valve replacement/repair on 05/22/2022. She is continued on a IV Lasix. Currently in a -1.7 L balance. Heparin for DVT prophylaxis. NicoDerm patch in place. Reevaluated today on , patient is scheduled to have surgery tomorrow. She will have mitral valve replacement/repair and this is again scheduled to be done tomorrow. Patient is doing well, no cough no wheezing no shortness of breath. She is on room air, O2 sats is 97%. Labs from today including a basic metabolic profile were unremarkable renal profile is normal. Reevaluated today on 05/23/22, patient is now postoperative day #1chordal preserving mitral valve replacement using a 27 mm Mosaic porcine bioprosthesis, tricuspid valve repair with ring annuloplasty using a 28 mm MC3 ring, exclusion of the left atrial appendage using a 35 mm AtriClip, intraoperative transesophageal echocardiogram and epi-aortic scanning. Patient was extubated last night around 7 PM, and she tolerated the extubation well. Patient remains in the ICU, denies any shortness of breath, she is in sinus rhythm, hemodynamically stable however she is still on low dose of Primacor, and amiodarone. No major issues over the last 12 hours. Patient is resting in a bedside chair, he is on few liters nasal cannula, chest x-ray showed minimal postoperative changes and atelectasis. Overall the patient is doing great. CBC is relatively normal hemoglobin is 9.4. Basic metabolic profile is normal. Cardiac output is 5.7, cardiac index is 3.1. CVP is 13. Objective - Vital Signs Vital signs: Vital Signs Temp 99.0 F 05/23/22 08:00 Pulse 87 05/23/22 11:00 Resp 16 05/23/22 11:00 BP 138/69 05/23/22 11:00 Pulse Ox 97 05/23/22 11:00 FiO2 50 05/22/22 16:00 Intake & Output 05/22/22 05/23/22 05/23/22 18:59 06:59 18:59 Intake Total 6018.369 0153.976 253.101 Output Total 3740 905 370 Balance -2372.630 860.976 -116.899 Weight 82.9 kg 82.9 kg Intake: IV 1302 1120 220 0.9 250 650 110 ACETAMINOPHEN IV (For NPO 200 ) 1,000 mg In Empty Bag 1 bag @ 400 mls/hr IVPB Q6HR [facility] Rx#:[id number] Albumin Human 5% 250 ml 1000 In Empty Bag 1 bag @ 250 mls/hr IVPB Q1HR PRN Rx#: [id number] CO/CI 70 10 Potassium Chloride 20 meq 100 In Water For Injection 1 100ml.bag @ 50 mls/hr IVPB ONCE STA Rx#: [id number] ceFAZolin 2 gm In Sodium 100 100 Chloride 0.9% 50 ml @ 100 mls/hr IVPB Q8HR [facility] Rx# :[id number] Intake, IV Titration 65.370 105.976 33.101 Amount Clevidipine Butyrate 25 10.767 mg In Empty Bag 1 bag @ 1 MG/HR 2 mls/hr IV .Q24H [facility] Rx#:[id number] Insulin Regular 100 unit 13.290 54.609 33.101 In Sodium Chloride 0.9% 100 ml @ Per Protocol IV .Q0M [facility] Rx#:[id number] Milrinone-D5w Pmx 20 mg 7.2 40.6 In Dextrose/Water 1 100ml .bag @ Per Protocol IV . Q0M [facility] Rx#:[id number] propofoL 1,000 mg In 44.88 Empty Bag 1 bag @ Titrate IV .Q0M [facility] Rx#: [id number] Oral 540 Output: Chest Tube Drainage 420 460 130 Mediastinal x 2 340 290 60 Right Pleural 80 170 70 Urine 820 445 240 Estimated Blood Loss 2500 Other: Voiding Method Indwelling Catheter Indwelling Catheter Indwelling Catheter ABP, PAP, CO, CI - Last Documented Arterial Blood Pressure 132/61 Pulmonary Artery Pressure 58/27 Cardiac Output 4.9 Cardiac Index 2.7 - Exam Physical Exam: Revealed a very pleasant 61-year-old female in no distress. On few liters nasal cannula Head: Atraumatic, normocephalic. HEENT:[Neck is supple.] [No neck masses.] [No thyromegaly.] [No JVD.] Right internal jugular [place]/cor this noted Chest: [Diminished breath sounds at the bases no crackles or rhonchi or wheezes] patient has mediastinal/right pleural chest tube present connected to wall suction, no air leak, mediastinal tube noted Cardiac Exam: [Normal S1 and S2, no S3 gallop, 2/6 systolic murmur thought the precordium. Abdomen: [Soft, nontender, no megaly, no rebound, no guarding, normal bowel sounds.] Extremities: [No clubbing, no edema, no cyanosis.] Neurological Exam: [No focal neurologic deficit.] Alert oriented 3. Psychiat vanessa: Normal mood affect and normal mental status examination. Skin: No rashes. Musculoskeletal: No deformities and no limitation in range of motion - Labs CBC & Chem 7: 05/23/22 03:23 05/23/22 03:23 Labs: Abnormal Lab Results - Last 24 Hours (Table) 05/21/22 05/22/22 05/22/22 Range/Units 10:38 08:34 09:37 WBC (3.8-10.6) k/uL RBC (3.80-5.40) m/uL Hgb (11.4-16.0) gm/dL Hct (34.0-46.0) % Plt Count (150-450) k/uL Neutrophils # (1.3-7.7) k/uL Lymphocytes # (1.0-4.8) k/uL INR (<1.2) APTT (22.0-30.0) sec ABG pH (7.35-7.45) ABG pCO2 55 H 47 H (35-45) mmHg ABG pO2 >420 H >420 H (83-108) mmHg ABG HCO3 32 H 31 H (21-25) mmol/L ABG Total CO2 34 H 32 H (19-24) mmol/L ABG O2 Saturation 100.0 H 100.0 H (94-97) % ABG Hematocrit (34.0-46.0) % ABG Potassium (3.4-4.5) mmol/L ABG Ionized Calcium (4.5-5.3) mg/dL ABG Glucose 120 H 134 H (75-99) mg/dL ABG Lactic Acid (0.5-1.6) mmol/L Hemoglobin (11.4-16.0) gm/dL Chloride (98-107) mmol/L BUN (7-17) mg/dL Glucose (74-99) mg/dL POC Glucose (mg/dL) (70-110) mg/dL Calcium (8.4-10.2) mg/dL Magnesium (1.6-2.3) mg/dL AST (14-36) U/L Total Protein (6.3-8.2) g/dL Albumin (3.5-5.0) g/dL Arterial Blood Potassium (3.4-4.5) mmol/L Arterial Blood Glucose 120 H 134 H (75-99) mg/dL Crossmatch See Detail 05/22/22 05/22/22 05/22/22 Range/Units 10:11 10:45 11:17 WBC (3.8-10.6) k/uL RBC (3.80-5.40) m/uL Hgb (11.4-16.0) gm/dL Hct (34.0-46.0) % Plt Count (150-450) k/uL Neutrophils # (1.3-7.7) k/uL Lymphocytes # (1.0-4.8) k/uL INR (<1.2) APTT (22.0-30.0) sec ABG pH 7.47 H (7.35-7.45) ABG pCO2 (35-45) mmHg ABG pO2 >420 H 327 H 305 H (83-108) mmHg ABG HCO3 29 H 30 H 30 H (21-25) mmol/L ABG Total CO2 30 H 31 H 31 H (19-24) mmol/L ABG O2 Saturation 100.0 H 100.0 H 100.0 H (94-97) % ABG Hematocrit 31 L 28 L 30 L (34.0-46.0) % ABG Potassium 4.7 H 4.7 H (3.4-4.5) mmol/L ABG Ionized Calcium 4.0 L 4.0 L 4.0 L (4.5-5.3) mg/dL ABG Glucose 146 H 146 H 157 H (75-99) mg/dL ABG Lactic Acid (0.5-1.6) mmol/L Hemoglobin 9.9 L 9.2 L 9.9 L (11.4-16.0) gm/dL Chloride (98-107) mmol/L BUN (7-17) mg/dL Glucose (74-99) mg/dL POC Glucose (mg/dL) (70-110) mg/dL Calcium (8.4-10.2) mg/dL Magnesium (1.6-2.3) mg/dL AST (14-36) U/L Total Protein (6.3-8.2) g/dL Albumin (3.5-5.0) g/dL Arterial Blood Potassium 4.7 H 4.7 H (3.4-4.5) mmol/L Arterial Blood Glucose 146 H 146 H 157 H (75-99) mg/dL Crossmatch 05/22/22 05/22/22 05/22/22 Range/Units 11:51 13:05 13:32 WBC (3.8-10.6) k/uL RBC (3.80-5.40) m/uL Hgb (11.4-16.0) gm/dL Hct (34.0-46.0) % Plt Count (150-450) k/uL Neutrophils # (1.3-7.7) k/uL Lymphocytes # (1.0-4.8) k/uL INR (<1.2) APTT (22.0-30.0) sec ABG pH 7.28 L (7.35-7.45) ABG pCO2 59 H (35-45) mmHg ABG pO2 351 H 80 L (83-108) mmHg ABG HCO3 28 H 28 H (21-25) mmol/L ABG Total CO2 29 H 30 H (19-24) mmol/L ABG O2 Saturation 100.0 H (94-97) % ABG Hematocrit 27 L (34.0-46.0) % ABG Potassium 4.7 H (3.4-4.5) mmol/L ABG Ionized Calcium 5.9 H (4.5-5.3) mg/dL ABG Glucose 162 H 160 H (75-99) mg/dL ABG Lactic Acid 2.0 H 1.9 H (0.5-1.6) mmol/L Hemoglobin 8.9 L (11.4-16.0) gm/dL Chloride (98-107) mmol/L BUN (7-17) mg/dL Glucose (74-99) mg/dL POC Glucose (mg/dL) 159 H (70-110) mg/dL Calcium (8.4-10.2) mg/dL Magnesium (1.6-2.3) mg/dL AST (14-36) U/L Total Protein (6.3-8.2) g/dL Albumin (3.5-5.0) g/dL Arterial Blood Potassium 4.7 H (3.4-4.5) mmol/L Arterial Blood Glucose 162 H 160 H (75-99) mg/dL Crossmatch 05/22/22 05/22/22 05/22/22 Range/Units 13:35 13:35 13:35 WBC 13.2 H (3.8-10.6) k/uL RBC (3.80-5.40) m/uL Hgb (11.4-16.0) gm/dL Hct (34.0-46.0) % Plt Count 148 L D (150-450) k/uL Neutrophils # 11.7 H (1.3-7.7) k/uL Lymphocytes # 0.7 L (1.0-4.8) k/uL INR 1.2 H (<1.2) APTT 111.6 H* (22.0-30.0) sec ABG pH (7.35-7.45) ABG pCO2 (35-45) mmHg ABG pO2 (83-108) mmHg ABG HCO3 (21-25) mmol/L ABG Total CO2 (19-24) mmol/L ABG O2 Saturation (94-97) % ABG Hematocrit (34.0-46.0) % ABG Potassium (3.4-4.5) mmol/L ABG Ionized Calcium (4.5-5.3) mg/dL ABG Glucose (75-99) mg/dL ABG Lactic Acid (0.5-1.6) mmol/L Hemoglobin (11.4-16.0) gm/dL Chloride (98-107) mmol/L BUN 20 H (7-17) mg/dL Glucose 152 H (74-99) mg/dL POC Glucose (mg/dL) (70-110) mg/dL Calcium 7.9 L (8.4-10.2) mg/dL Magnesium 3.1 H (1.6-2.3) mg/dL AST 61 H (14-36) U/L Total Protein 4.7 L (6.3-8.2) g/dL Albumin 2.8 L (3.5-5.0) g/dL Arterial Blood Potassium (3.4-4.5) mmol/L Arterial Blood Glucose (75-99) mg/dL Crossmatch 05/22/22 05/22/22 05/22/22 Range/Units 13:57 13:57 14:56 WBC (3.8-10.6) k/uL RBC (3.80-5.40) m/uL Hgb (11.4-16.0) gm/dL Hct (34.0-46.0) % Plt Count (150-450) k/uL Neutrophils # (1.3-7.7) k/uL Lymphocytes # (1.0-4.8) k/uL INR (<1.2) APTT (22.0-30.0) sec ABG pH 7.31 L (7.35-7.45) ABG pCO2 57 H (35-45) mmHg ABG pO2 357 H (83-108) mmHg ABG HCO3 28 H (21-25) mmol/L ABG Total CO2 30 H (19-24) mmol/L ABG O2 Saturation 100.0 H (94-97) % ABG Hematocrit (34.0-46.0) % ABG Potassium (3.4-4.5) mmol/L ABG Ionized Calcium (4.5-5.3) mg/dL ABG Glucose (75-99) mg/dL ABG Lactic Acid (0.5-1.6) mmol/L Hemoglobin (11.4-16.0) gm/dL Chloride (98-107) mmol/L BUN (7-17) mg/dL Glucose (74-99) mg/dL POC Glucose (mg/dL) 152 H 168 H (70-110) mg/dL Calcium (8.4-10.2) mg/dL Magnesium (1.6-2.3) mg/dL AST (14-36) U/L Total Protein (6.3-8.2) g/dL Albumin (3.5-5.0) g/dL Arterial Blood Potassium (3.4-4.5) mmol/L Arterial Blood Glucose (75-99) mg/dL Crossmatch 05/22/22 05/22/22 05/22/22 Range/Units 15:44 15:56 16:30 WBC 12.5 H (3.8-10.6) k/uL RBC 3.39 L (3.80-5.40) m/uL Hgb 10.5 L (11.4-16.0) gm/dL Hct 32.1 L (34.0-46.0) % Plt Count 148 L (150-450) k/uL Neutrophils # 10.7 H (1.3-7.7) k/uL Lymphocytes # 0.9 L (1.0-4.8) k/uL INR (<1.2) APTT (22.0-30.0) sec ABG pH 7.29 L (7.35-7.45) ABG pCO2 62 H (35-45) mmHg ABG pO2 35 L* (83-108) mmHg ABG HCO3 30 H (21-25) mmol/L ABG Total CO2 31 H (19-24) mmol/L ABG O2 Saturation 57.0 L (94-97) % ABG Hematocrit (34.0-46.0) % ABG Potassium (3.4-4.5) mmol/L ABG Ionized Calcium (4.5-5.3) mg/dL ABG Glucose (75-99) mg/dL ABG Lactic Acid (0.5-1.6) mmol/L Hemoglobin (11.4-16.0) gm/dL Chloride (98-107) mmol/L BUN (7-17) mg/dL Glucose (74-99) mg/dL POC Glucose (mg/dL) 160 H (70-110) mg/dL Calcium (8.4-10.2) mg/dL Magnesium (1.6-2.3) mg/dL AST (14-36) U/L Total Protein (6.3-8.2) g/dL Albumin (3.5-5.0) g/dL Arterial Blood Potassium (3.4-4.5) mmol/L Arterial Blood Glucose (75-99) mg/dL Crossmatch 05/22/22 05/22/22 05/22/22 Range/Units 16:58 18:06 18:54 WBC (3.8-10.6) k/uL RBC (3.80-5.40) m/uL Hgb (11.4-16.0) gm/dL Hct (34.0-46.0) % Plt Count (150-450) k/uL Neutrophils # (1.3-7.7) k/uL Lymphocytes # (1.0-4.8) k/uL INR (<1.2) APTT (22.0-30.0) sec ABG pH (7.35-7.45) ABG pCO2 49 H (35-45) mmHg ABG pO2 (83-108) mmHg ABG HCO3 28 H (21-25) mmol/L ABG Total CO2 29 H (19-24) mmol/L ABG O2 Saturation 98.9 H (94-97) % ABG Hematocrit (34.0-46.0) % ABG Potassium (3.4-4.5) mmol/L ABG Ionized Calcium (4.5-5.3) mg/dL ABG Glucose (75-99) mg/dL ABG Lactic Acid (0.5-1.6) mmol/L Hemoglobin (11.4-16.0) gm/dL Chloride (98-107) mmol/L BUN (7-17) mg/dL Glucose (74-99) mg/dL POC Glucose (mg/dL) 153 H 151 H (70-110) mg/dL Calcium (8.4-10.2) mg/dL Magnesium (1.6-2.3) mg/dL AST (14-36) U/L Total Protein (6.3-8.2) g/dL Albumin (3.5-5.0) g/dL Arterial Blood Potassium (3.4-4.5) mmol/L Arterial Blood Glucose (75-99) mg/dL Crossmatch 05/22/22 05/22/22 05/22/22 Range/Units 19:23 19:24 20:12 WBC 12.2 H (3.8-10.6) k/uL RBC 3.23 L (3.80-5.40) m/uL Hgb 10.1 L (11.4-16.0) gm/dL Hct 30.4 L (34.0-46.0) % Plt Count (150-450) k/uL Neutrophils # 10.9 H (1.3-7.7) k/uL Lymphocytes # 0.4 L (1.0-4.8) k/uL INR (<1.2) APTT (22.0-30.0) sec ABG pH (7.35-7.45) ABG pCO2 (35-45) mmHg ABG pO2 (83-108) mmHg ABG HCO3 (21-25) mmol/L ABG Total CO2 (19-24) mmol/L ABG O2 Saturation (94-97) % ABG Hematocrit (34.0-46.0) % ABG Potassium (3.4-4.5) mmol/L ABG Ionized Calcium (4.5-5.3) mg/dL ABG Glucose (75-99) mg/dL ABG Lactic Acid (0.5-1.6) mmol/L Hemoglobin (11.4-16.0) gm/dL Chloride (98-107) mmol/L BUN (7-17) mg/dL Glucose (74-99) mg/dL POC Glucose (mg/dL) 150 H 147 H (70-110) mg/dL Calcium (8.4-10.2) mg/dL Magnesium (1.6-2.3) mg/dL AST (14-36) U/L Total Protein (6.3-8.2) g/dL Albumin (3.5-5.0) g/dL Arterial Blood Potassium (3.4-4.5) mmol/L Arterial Blood Glucose (75-99) mg/dL Crossmatch 05/22/22 05/22/22 05/22/22 Range/Units 20:55 22:17 23:07 WBC (3.8-10.6) k/uL RBC (3.80-5.40) m/uL Hgb (11.4-16.0) gm/dL Hct (34.0-46.0) % Plt Count (150-450) k/uL Neutrophils # (1.3-7.7) k/uL Lymphocytes # (1.0-4.8) k/uL INR (<1.2) APTT (22.0-30.0) sec ABG pH (7.35-7.45) ABG pCO2 (35-45) mmHg ABG pO2 (83-108) mmHg ABG HCO3 (21-25) mmol/L ABG Total CO2 (19-24) mmol/L ABG O2 Saturation (94-97) % ABG Hematocrit (34.0-46.0) % ABG Potassium (3.4-4.5) mmol/L ABG Ionized Calcium (4.5-5.3) mg/dL ABG Glucose (75-99) mg/dL ABG Lactic Acid (0.5-1.6) mmol/L Hemoglobin (11.4-16.0) gm/dL Chloride (98-107) mmol/L BUN (7-17) mg/dL Glucose (74-99) mg/dL POC Glucose (mg/dL) 137 H 142 H 138 H (70-110) mg/dL Calcium (8.4-10.2) mg/dL Magnesium (1.6-2.3) mg/dL AST (14-36) U/L Total Protein (6.3-8.2) g/dL Albumin (3.5-5.0) g/dL Arterial Blood Potassium (3.4-4.5) mmol/L Arterial Blood Glucose (75-99) mg/dL Crossmatch 05/23/22 05/23/22 05/23/22 Range/Units 00:02 01:13 02:12 WBC (3.8-10.6) k/uL RBC (3.80-5.40) m/uL Hgb (11.4-16.0) gm/dL Hct (34.0-46.0) % Plt Count (150-450) k/uL Neutrophils # (1.3-7.7) k/uL Lymphocytes # (1.0-4.8) k/uL INR (<1.2) APTT (22.0-30.0) sec ABG pH (7.35-7.45) ABG pCO2 (35-45) mmHg ABG pO2 (83-108) mmHg ABG HCO3 (21-25) mmol/L ABG Total CO2 (19-24) mmol/L ABG O2 Saturation (94-97) % ABG Hematocrit (34.0-46.0) % ABG Potassium (3.4-4.5) mmol/L ABG Ionized Calcium (4.5-5.3) mg/dL ABG Glucose (75-99) mg/dL ABG Lactic Acid (0.5-1.6) mmol/L Hemoglobin (11.4-16.0) gm/dL Chloride (98-107) mmol/L BUN (7-17) mg/dL Glucose (74-99) mg/dL POC Glucose (mg/dL) 131 H 122 H 119 H (70-110) mg/dL Calcium (8.4-10.2) mg/dL Magnesium (1.6-2.3) mg/dL AST (14-36) U/L Total Protein (6.3-8.2) g/dL Albumin (3.5-5.0) g/dL Arterial Blood Potassium (3.4-4.5) mmol/L Arterial Blood Glucose (75-99) mg/dL Crossmatch 05/23/22 05/23/22 05/23/22 Range/Units 03:12 03:23 03:23 WBC 13.3 H (3.8-10.6) k/uL RBC 3.02 L (3.80-5.40) m/uL Hgb 9.4 L (11.4-16.0) gm/dL Hct 28.3 L (34.0-46.0) % Plt Count (150-450) k/uL Neutrophils # 11.4 H (1.3-7.7) k/uL Lymphocytes # 0.6 L (1.0-4.8) k/uL INR (<1.2) APTT (22.0-30.0) sec ABG pH (7.35-7.45) ABG pCO2 (35-45) mmHg ABG pO2 (83-108) mmHg ABG HCO3 (21-25) mmol/L ABG Total CO2 (19-24) mmol/L ABG O2 Saturation (94-97) % ABG Hematocrit (34.0-46.0) % ABG Potassium (3.4-4.5) mmol/L ABG Ionized Calcium (4.5-5.3) mg/dL ABG Glucose (75-99) mg/dL ABG Lactic Acid (0.5-1.6) mmol/L Hemoglobin (11.4-16.0) gm/dL Chloride 109 H (98-107) mmol/L BUN 20 H (7-17) mg/dL Glucose 108 H (74-99) mg/dL POC Glucose (mg/dL) 119 H (70-110) mg/dL Calcium (8.4-10.2) mg/dL Magnesium (1.6-2.3) mg/dL AST 82 H (14-36) U/L Total Protein 5.3 L (6.3-8.2) g/dL Albumin (3.5-5.0) g/dL Arterial Blood Potassium (3.4-4.5) mmol/L Arterial Blood Glucose (75-99) mg/dL Crossmatch 05/23/22 05/23/22 05/23/22 Range/Units 06:22 06:50 08:05 WBC (3.8-10.6) k/uL RBC (3.80-5.40) m/uL Hgb (11.4-16.0) gm/dL Hct (34.0-46.0) % Plt Count (150-450) k/uL Neutrophils # (1.3-7.7) k/uL Lymphocytes # (1.0-4.8) k/uL INR (<1.2) APTT (22.0-30.0) sec ABG pH (7.35-7.45) ABG pCO2 (35-45) mmHg ABG pO2 (83-108) mmHg ABG HCO3 (21-25) mmol/L ABG Total CO2 (19-24) mmol/L ABG O2 Saturation (94-97) % ABG Hematocrit (34.0-46.0) % ABG Potassium (3.4-4.5) mmol/L ABG Ionized Calcium (4.5-5.3) mg/dL ABG Glucose (75-99) mg/dL ABG Lactic Acid (0.5-1.6) mmol/L Hemoglobin (11.4-16.0) gm/dL Chloride (98-107) mmol/L BUN (7-17) mg/dL Glucose (74-99) mg/dL POC Glucose (mg/dL) 159 H 163 H 165 H (70-110) mg/dL Calcium (8.4-10.2) mg/dL Magnesium (1.6-2.3) mg/dL AST (14-36) U/L Total Protein (6.3-8.2) g/dL Albumin (3.5-5.0) g/dL Arterial Blood Potassium (3.4-4.5) mmol/L Arterial Blood Glucose (75-99) mg/dL Crossmatch 05/23/22 05/23/22 Range/Units 08:58 10:16 WBC (3.8-10.6) k/uL RBC (3.80-5.40) m/uL Hgb (11.4-16.0) gm/dL Hct (34.0-46.0) % Plt Count (150-450) k/uL Neutrophils # (1.3-7.7) k/uL Lymphocytes # (1.0-4.8) k/uL INR (<1.2) APTT (22.0-30.0) sec ABG pH (7.35-7.45) ABG pCO2 (35-45) mmHg ABG pO2 (83-108) mmHg ABG HCO3 (21-25) mmol/L ABG Total CO2 (19-24) mmol/L ABG O2 Saturation (94-97) % ABG Hematocrit (34.0-46.0) % ABG Potassium (3.4-4.5) mmol/L ABG Ionized Calcium (4.5-5.3) mg/dL ABG Glucose (75-99) mg/dL ABG Lactic Acid (0.5-1.6) mmol/L Hemoglobin (11.4-16.0) gm/dL Chloride (98-107) mmol/L BUN (7-17) mg/dL Glucose (74-99) mg/dL POC Glucose (mg/dL) 183 H 126 H (70-110) mg/dL Calcium (8.4-10.2) mg/dL Magnesium (1.6-2.3) mg/dL AST (14-36) U/L Total Protein (6.3-8.2) g/dL Albumin (3.5-5.0) g/dL Arterial Blood Potassium (3.4-4.5) mmol/L Arterial Blood Glucose (75-99) mg/dL Crossmatch Assessment and Plan Assessment: Impression: Postoperative day #1,chordal preserving mitral valve replacement using a 27 mm Mosaic porcine bioprosthesis, tricuspid valve repair with ring annuloplasty using a 28 mm MC3 ring, exclusion of the left atrial appendage using a 35 mm AtriClip, intraoperative transesophageal echocardiogram and epi-aortic scanning 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 Postoperative blood loss anemia, expected Postoperative atelectasis, expected Recommendation: Continue maximal medical therapy including beta blockers Plavix that an aspirin Continue amiodarone Weaned off and discontinue Primacor. Continue incentive spirometry and continue bronchodilators Continue insulin Data monitoring of x-rays and labs GI and DVT prophylaxis Early ambulation Discontinue unnecessary catheters and lines We will continue to follow Time with Patient: Less than 30
[2022-05-23 12:55] LABS: Glucose,Whole Blood 149 mg/dL (70-110)
[2022-05-23] MEDS: INSULIN REGULAR 100 UNIT in SODIUM CHLORIDE 0.9% 100 ML IV SCH (12:57)
[2022-05-23 14:18] LABS: Glucose,Whole Blood 273 mg/dL (70-110)
[2022-05-23 15:04] LABS: Glucose,Whole Blood 247 mg/dL (70-110)
[2022-05-23 16:12] LABS: Glucose,Whole Blood 169 mg/dL (70-110)
[2022-05-23] MEDS ORDERED: METOPROLOL TARTRATE 25 MG TAB PO SCH ×2 (16:15→21:00)
[2022-05-23 17:02] LABS: Glucose,Whole Blood 131 mg/dL (70-110)
[2022-05-23 18:06] LABS: Glucose,Whole Blood 138 mg/dL (70-110)
[2022-05-23 19:12] LABS: Glucose,Whole Blood 147 mg/dL (70-110)
[2022-05-23 20:03] LABS: Glucose,Whole Blood 114 mg/dL (70-110)
[2022-05-23] MEDS: SENNOSIDES-DOCUSATE SODIUM 1 EACH TAB PO SCH (20:14)
[2022-05-23] MEDS: METOPROLOL TARTRATE 25 MG TAB PO SCH (20:15)
[2022-05-23 21:20] LABS: Glucose,Whole Blood 116 mg/dL (70-110)
[2022-05-23 22:10] LABS: Glucose,Whole Blood 129 mg/dL (70-110)
[2022-05-23 23:07] LABS: Glucose,Whole Blood 87 mg/dL (70-110)
--- NOTE | 2022-05-23 23:22 | PN ---
PROGRESS NOTE HISTORY OF PRESENT ILLNESS: Annetta is a 61-year-old lady with history of rheumatic heart disease with mitral stenosis and regurgitation with severe pulmonary hypertension, who underwent mitral valve replacement yesterday. This morning, the patient is doing very well, extubated, remains in sinus rhythm and the PA pressures have dropped significantly from preoperative phase. She underwent a 27 mm porcine mitral valve prostheses along with a tricuspid ring valvuloplasty. She also had left atrial appendage exclusion with an AtriClip. PHYSICAL EXAMINATION: VITAL SIGNS: Comfortable at rest. Vital signs are stable. CHEST: Reveals diminished air entry at the bases. HEART: Reveals first and second heart sounds. No gallop. EXTREMITIES: Did not reveal any edema. Peripheral pulses are felt. MEDICATIONS: The patient is currently on, 1. Amiodarone 400 b.i.d. 2. Aspirin. 3. Lipitor. 4. Plavix. 5. Lopressor. ASSESSMENT: 1. Rheumatic heart disease, status post mitral valve replacement. 2. Pulmonary hypertension. PLAN: The patient is doing well. She will continue to work on incentive spirometry. MMODL / IJN: [id number] /
[2022-05-24 00:16] LABS: Glucose,Whole Blood 142 mg/dL (70-110)
[2022-05-24] MEDS: KETOROLAC 15 MG/ML 1 ML VIAL IVP SCH ×4 (01:09→17:06)
[2022-05-24] MEDS: HEPARIN SODIUM,PORCINE/PF 5,000 UNIT/0.5 ML SYRINGE SQ SCH ×3 (01:10→16:44)
[2022-05-24 01:19] LABS: Glucose,Whole Blood 135 mg/dL (70-110)
[2022-05-24 02:06] LABS: Glucose,Whole Blood 92 mg/dL (70-110)
[2022-05-24 03:08] LABS: Glucose,Whole Blood 122 mg/dL (70-110)
[2022-05-24] MEDS: INSULIN REGULAR 100 UNIT in SODIUM CHLORIDE 0.9% 100 ML IV SCH ×2 (03:15→17:02)
[2022-05-24 04:14] LABS: Glucose,Whole Blood 107 mg/dL (70-110)
[2022-05-24 04:33] LABS: Basophils % (A) 0 %; Eosinophils % (A) 0 %; HCT 23.9 % (34.0-46.0); Lymphocytes # (A) 1.2 k/uL (1.0-4.8); Lymphocytes % (A) 7 %; MCH 31.7 pg (25.0-35.0); MCHC 33.4 g/dL (31.0-37.0); MCV 94.8 fL (80.0-100.0); Mean Platelet Volume 10.3; Monocytes # (A) 1.2 k/uL (0-1.0); Monocytes % (A) 8 %; Neutrophils # (A) 12.9 k/uL (1.3-7.7); Neutrophils % (A) 82 %; Platelet Count 125 k/uL (150-450); RBC 2.53 m/uL (3.80-5.40); RDW 15.1 % (11.5-15.5); WBC 15.6 k/uL (3.8-10.6)
[2022-05-24] MEDS: MILRINONE-D5W PMX 20 MG in DEXTROSE/WATER 1 100ML.BAG IV SCH (04:46)
[2022-05-24] MEDS: HYDROcodone/APAP 5-325MG 1 EACH TAB PO PRN ×4 (04:48→20:19)
[2022-05-24 05:02] LABS: Glucose,Whole Blood 130 mg/dL (70-110)
[2022-05-24 05:03] LABS: Ionized Calcium 5.1 mg/dL (4.5-5.3)
[2022-05-24 05:13] LABS: ALT 17 U/L (4-34); AST 70 U/L (14-36); African American GFR (CKD) >90 (>60 ml/min/1.73 sqM); Albumin 3.3 g/dL (3.5-5.0); Alkaline Phosphatase 66 U/L (38-126); Anion Gap 5 mmol/L; Blood Urea Nitrogen 21 mg/dL (7-17); Calcium 8.5 mg/dL (8.4-10.2); Carbon Dioxide 25 mmol/L (22-30); Chloride 105 mmol/L (98-107); Glucose 93 mg/dL (74-99); Non-African American GFR(CKD) >90 (>60 ml/min/1.73 sqM); Potassium 4.2 mmol/L (3.5-5.1); Sodium 135 mmol/L (137-145); Total Bilirubin 0.9 mg/dL (0.2-1.3); Total Protein 5.1 g/dL (6.3-8.2)
[2022-05-24] MEDS ORDERED: FUROSEMIDE 10 MG/ML 2 ML VIAL IV ONE (05:37)
[2022-05-24] MEDS: PANTOPRAZOLE 40 MG TABLET PO SCH (06:07)
[2022-05-24 06:08] LABS: Glucose,Whole Blood 109 mg/dL (70-110)
[2022-05-24 08:00] LABS: Glucose,Whole Blood 191 mg/dL (70-110)
[2022-05-24] MEDS: IPRATROPIUM-ALBUTEROL 3 ML NEB INHALATION SCH ×4 (08:33→22:00)
[2022-05-24] MEDS: SYMBICORT 160-4.5 MCG INHALER INHALATION SCH ×2 (08:33→22:00)
[2022-05-24] MEDS: ASPIRIN 325 MG TAB PO SCH (08:45)
[2022-05-24] MEDS: ATORVASTATIN 40 MG TAB PO SCH (08:47)
[2022-05-24] MEDS: METOPROLOL TARTRATE 25 MG TAB PO SCH ×2 (08:47→22:12)
[2022-05-24] MEDS: AMIODARONE 200 MG TAB PO SCH ×2 (08:47→20:19)
[2022-05-24] MEDS: CLOPIDOGREL 75 MG TAB PO SCH (08:47)
[2022-05-24] MEDS: CITALOPRAM HYDROBROMIDE 20 MG TAB PO SCH ×2 (08:47→20:19)
[2022-05-24] MEDS ORDERED: amLODIPine 5 MG TAB PO SCH (09:00)
[2022-05-24 09:06] LABS: Glucose,Whole Blood 248 mg/dL (70-110)
--- NOTE | 2022-05-24 09:34 | XR ---
EXAMINATION TYPE: XR chest 1V portable DATE OF EXAM: 05/24/2022 COMPARISON: 05/23/2022 INDICATION: Postop cardiac surgery TECHNIQUE: Single frontal view of the chest is obtained. FINDINGS: The heart size is normal. The pulmonary vasculature is normal. Some mild infiltrate in the left base. Correlate for atelectasis. Marcellus-Celso catheter tip is in the main pulmonary artery region. Sternotomy wires are in the midline. IMPRESSION: 1. Mild left lower lobe infiltrate. Correlate for atelectasis. Follow-up is recommended. 2. Marcellus-Celso catheter remains present.
--- NOTE | 2022-05-24 09:45 | P.PN ---
Subjective Progress Note Date: 05/24/22 Principal diagnosis: Severe rheumatic mitral valve stenosis with severe pulmonary hypertension, moderate mitral valve regurgitation, preserved left ventricular systolic function, moderate right ventricular dysfunction, moderate tricuspid valve regurgitation, acute on chronic diastolic heart failure, transaminitis. History of mild nonobstructive coronary artery disease, hypertension, hyperlipidemia, previous tobacco dependence with recent cessation, severe COPD, supraventricular tachycardia, depression, remote history of pneumonia, and family history of coronary artery disease POD #2 chordal preserving mitral valve replacement using a 27 mm Mosaic porcine bioprosthesis, tricuspid valve repair with ring annuloplasty using a 28 mm MC3 ring, exclusion of the left atrial appendage using a 35 mm AtriClip, intraoperative transesophageal echocardiogram and epi-aortic scanning Postoperative acute blood loss anemia, expected given hemodilution and cardiopulmonary bypass pump The patient was seen and examined with morning with Dr. Lerma sitting up in a recliner intensive care unit in no acute distress. Denies pain or shortness of breath. Currently sinus rhythm, hemodynamically stable on IV Primacor. She had a relatively uneventful evening and states she slept well. Right internal jugular Jbphh/cordis, right brachial arterial line, mediastinal/right pleural chest tubes all remain. Urine output marginal despite IV Lasix. Currently on 2 L nasal cannula with oxygen saturation in the high 90s No other new concerns. Objective - Vital Signs Vital signs: Vital Signs Temp 98.3 F 05/24/22 04:00 Pulse 95 05/24/22 08:44 Resp 20 05/24/22 07:30 BP 125/81 05/24/22 06:00 Pulse Ox 97 05/24/22 07:30 FiO2 50 05/22/22 16:00 Intake & Output 05/23/22 05/24/22 05/24/22 18:59 06:59 18:59 Intake Total 976.598 9940.868 42.352 Output Total 770 605 23 Balance -160.859 395.868 19.352 Weight 82.9 kg 83.1 kg Intake: IV 530 430 30 0.9 380 330 30 CO/CI 50 100 ceFAZolin 2 gm In Sodium 100 Chloride 0.9% 50 ml @ 100 mls/hr IVPB Q8HR [facility] Rx# :[id number] Intake, IV Titration 79.141 170.868 12.352 Amount Insulin Regular 100 unit 79.141 70.868 0 In Sodium Chloride 0.9% 100 ml @ Per Protocol IV .Q0M [facility] Rx#:[id number] Milrinone-D5w Pmx 20 mg 100 12.352 In Dextrose/Water 1 100ml .bag @ 0.2 MCG/KG/MIN 4. 974 mls/hr IV .Q20H7M [facility] Rx#:[id number] Oral 400 Output: Chest Tube Drainage 200 190 Mediastinal x 2 70 30 Right Pleural 130 160 Urine 570 415 23 Other: Voiding Method Indwelling Catheter Indwelling Catheter ABP, PAP, CO, CI - Last Documented Arterial Blood Pressure 138/63 Pulmonary Artery Pressure 52/22 Cardiac Output 4.2 Cardiac Index 2.3 - Exam CONSTITUTIONAL: Appears comfortable, cooperative, no acute distress RESPIRATORY: Lungs sounds diminished bilaterally. Respirations even, nonlabored. Currently on 2 L nasal cannula with oxygen saturation 97%. Able to achieve 750 mL on incentive spirometry. Strong nonproductive cough. CARDIOVASCULAR: S1, S2 present. Regular rate and rhythm, sinus rhythm on tel emetry. Sternum stable. Palpable peripheral pulses bilaterally. No edema present. No calf pain or tenderness noted. Heart hugger in place with patient demonstrating appropriate use. Antiembolism stockings, SCDs present. GASTROINTESTINAL: Abdomen soft, nontender, nondistended. Active bowel sounds present 4 quadrants. Tolerating diet. Positive flatus GENITOURINARY: Crespo present draining clear, yellow urine. Output overnight 15-30 mL per hour, 985 mL the last 24 hours INTEGUMENTARY: Skin is warm and dry with evidence of good perfusion. Anterior chest incision well approximated and covered with dry intact dressing NEUROLOGIC: Cranial nerves II through XII intact MUSKULOSKELETAL: Able to move all extremities, strength equal bilaterally, gait normal PSYCHIATRIC: Alert and oriented to person place and time, appropriate affect, intact judgment and insight INVASIVE LINES AND TUBES: Mediastinal/right pleural chest tubes present and connected to wall suction, no air leaks present. Mediastinal tube with 10 mL serosanguineous drainage overnight, 200 mL in the last 24 hours. Right pleural chest tube with 120 mL serosanguineous drainage overnight, 250 mL since surgery. A/V epicardial pacemaker wires present, grounded. Right internal jugular Jbphh/Cordis, right brachial arterial line present. Last CO/CI 4.2/2.3, PA 52/21, CVP 13. - Allied health notes Allied health notes reviewed: nursing - Labs CBC & Chem 7: 05/24/22 04:17 05/24/22 04:17 Labs: Abnormal Lab Results - Last 24 Hours (Table) 05/23/22 05/23/22 05/23/22 Range/Units 10:16 12:54 14:16 WBC (3.8-10.6) k/uL RBC (3.80-5.40) m/uL Hgb (11.4-16.0) gm/dL Hct (34.0-46.0) % Plt Count (150-450) k/uL Neutrophils # (1.3-7.7) k/uL Monocytes # (0-1.0) k/uL Sodium (137-145) mmol/L BUN (7-17) mg/dL POC Glucose (mg/dL) 126 H 149 H 273 H (70-110) mg/dL AST (14-36) U/L Total Protein (6.3-8.2) g/dL Albumin (3.5-5.0) g/dL 05/23/22 05/23/22 05/23/22 Range/Units 15:02 16:10 17:00 WBC (3.8-10.6) k/uL RBC (3.80-5.40) m/uL Hgb (11.4-16.0) gm/dL Hct (34.0-46.0) % Plt Count (150-450) k/uL Neutrophils # (1.3-7.7) k/uL Monocytes # (0-1.0) k/uL Sodium (137-145) mmol/L BUN (7-17) mg/dL POC Glucose (mg/dL) 247 H 169 H 131 H (70-110) mg/dL AST (14-36) U/L Total Protein (6.3-8.2) g/dL Albumin (3.5-5.0) g/dL 05/23/22 05/23/22 05/23/22 Range/Units 18:05 19:11 20:02 WBC (3.8-10.6) k/uL RBC (3.80-5.40) m/uL Hgb (11.4-16.0) gm/dL Hct (34.0-46.0) % Plt Count (150-450) k/uL Neutrophils # (1.3-7.7) k/uL Monocytes # (0-1.0) k/uL Sodium (137-145) mmol/L BUN (7-17) mg/dL POC Glucose (mg/dL) 138 H 147 H 114 H (70-110) mg/dL AST (14-36) U/L Total Protein (6.3-8.2) g/dL Albumin (3.5-5.0) g/dL 05/23/22 05/23/22 05/24/22 Range/Units 21:19 22:08 00:14 WBC (3.8-10.6) k/uL RBC (3.80-5.40) m/uL Hgb (11.4-16.0) gm/dL Hct (34.0-46.0) % Plt Count (150-450) k/uL Neutrophils # (1.3-7.7) k/uL Monocytes # (0-1.0) k/uL Sodium (137-145) mmol/L BUN (7-17) mg/dL POC Glucose (mg/dL) 116 H 129 H 142 H (70-110) mg/dL AST (14-36) U/L Total Protein (6.3-8.2) g/dL Albumin (3.5-5.0) g/dL 05/24/22 05/24/22 05/24/22 Range/Units 01:17 03:06 04:17 WBC 15.6 H (3.8-10.6) k/uL RBC 2.53 L (3.80-5.40) m/uL Hgb 8.0 L (11.4-16.0) gm/dL Hct 23.9 L (34.0-46.0) % Plt Count 125 L (150-450) k/uL Neutrophils # 12.9 H (1.3-7.7) k/uL Monocytes # 1.2 H (0-1.0) k/uL Sodium (137-145) mmol/L BUN (7-17) mg/dL POC Glucose (mg/dL) 135 H 122 H (70-110) mg/dL AST (14-36) U/L Total Protein (6.3-8.2) g/dL Albumin (3.5-5.0) g/dL 05/24/22 05/24/22 05/24/22 Range/Units 04:17 05:00 07:58 WBC (3.8-10.6) k/uL RBC (3.80-5.40) m/uL Hgb (11.4-16.0) gm/dL Hct (34.0-46.0) % Plt Count (150-450) k/uL Neutrophils # (1.3-7.7) k/uL Monocytes # (0-1.0) k/uL Sodium 135 L (137-145) mmol/L BUN 21 H (7-17) mg/dL POC Glucose (mg/dL) 130 H 191 H (70-110) mg/dL AST 70 H (14-36) U/L Total Protein 5.1 L (6.3-8.2) g/dL Albumin 3.3 L (3.5-5.0) g/dL - Imaging and Cardiology Chest x-ray: report reviewed, image reviewed Assessment and Plan Assessment: 1. 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 Preserved left ventricular systolic function, moderate right ventricular dysfunction, EF 55-60% 3. Moderate tricuspid valve regurgitation, status post tricuspid valve repair 4. Acute on chronic diastolic heart failure 5. Transaminitis 6. History of mild nonobstructive coronary artery disease 7. Hypertension 8. Hyperlipidemia, treated, cholesterol 196, LDL 99, triglycerides 254 9. Previous tobacco dependence with recent cessation 10. Severe COPD, preoperative FEV1 42% of predicted 11. History of supraventricular tachycardia 12. Depression 13. Remote history of pneumonia 14. Family history of coronary artery disease 15. Postoperative acute blood loss anemia, expected Plan: 1. Continue to maximize medical therapy with aspirin, statin, Plavix, beta vince. Will increase beta vince therapy as tolerated. Will add Norvasc for radial artery spasm prophylaxis and pulmonary hypertension 2. Continue amiodarone for A. fib prophylaxis 3. Will wean Primacor as tolerated 4. Wean O2 as tolerated. Encourage incentive spirometry 10 times every hour while awake. Bronchodilators per pulmonology 5. Increase activity as tolerated. PT/OT/cardiac rehab consulted 6. Will monitor daily labs and x-rays. Electrolyte replacement per protocol 7. GI/DVT prophylaxis 8. Pain control with current medication regimen 9. Insulin management per internal medicine service. Preoperative hemoglobin A1c 6.4% 10. Continue Jbphh/Cordis, arterial line for another 24 hours, may discontinue Jbphh later this afternoon 11. Will discontinue mediastinal chest tube, keep right pleural chest tubes for another 24 hours 12. Continue Crespo catheter for another 24 hours for strict accurate intake and output. Daily weights 13. More recommendations to follow
[2022-05-24 10:04] LABS: Glucose,Whole Blood 220 mg/dL (70-110)
[2022-05-24] MEDS: ASCORBIC ACID 500 MG TAB PO SCH ×2 (10:07→17:06)
[2022-05-24] MEDS: FERROUS SULFATE 325 MG TAB PO SCH ×2 (10:07→17:06)
[2022-05-24 11:07] LABS: Glucose,Whole Blood 160 mg/dL (70-110)
--- NOTE | 2022-05-24 11:28 | P.PN ---
Subjective Progress Note Date: 05/24/22 Patient is a 61-year-old female with recently diagnosed rheumatic mitral valve disease with severe stenosis and regurg, severe pulmonary hypertension, and HTN who presented to the emergency room with complaints of shortness of breath, lower extremity edema, and abdominal distention. The patient was recently admitted to the hospital from 04/25-04/27 for similar complaints, at which time she was diagnosed with the above mitral valve disease. The patient was advised to follow-up as an outpatient for an elective mitral valve repair/replacement with cardiothoracic surgery. Upon arrival at the emergency room vital signs were within normal limits. Chest CTA revealed no evidence of PE with a right pleural effusion. EKG revealed sinus tachycardia with PVCs at 102 bpm with no notable ST/T-wave changes noted as reviewed by me. Laboratory evaluation was remarkable for troponin of less than 0.012, proBNP 3870, AST 132, ALT 158, and alk phos 232 with a total bilirubin 1.4. She was admitted for acute exacerbation of right- sided heart failure in the setting of severe mitral valve disease. She was started on IV diuresis and cardiology was consulted. Cardiovascular surgery was also consulted. Patient underwent open heart surgery with mitral valve replacement, tricuspid valve repair, exclusion of the left atrial appendage with a 35mm atrial clip on 05/22. She was extubated on 05/22. Patient was seen and examined. No acute events overnight. She is POD 2. Sleeping comfortably in the chair. General: nontoxic, no distress, appears at stated age Derm: warm, dry Head: atraumatic, normocephalic, symmetric Eyes: ROMAN, no lid lag, anicteric sclera Mouth: no lip lesion, mucus membranes moist Cardiovascular: S1S2 reg, with murmur, mediastinal and pleural chest tubes in place Lungs: Decreased BS bilateral, no rhonchi, no rales , no accessory muscle use Ext: no gross muscle atrophy, trace edema, no contractures Neuro: no focal neuro deficits Psych: Alert, oriented, appropriate affect #Acute blood loss anemia -Expected result of surgery -Continue to monitor #Acute exacerbation of right-sided heart failure, cor pulmonale in the setting of severe mitral valve disease #Severe mitral regurgitation with moderate to severe stenosis #Severe pulmonary hypertension #Nonobstructive coronary artery disease #Hypertension -Cardiothoracic surgery on board -Status post mitral valve replacement, tricuspid valve repair, exclusion of the left atrial appendage with a 35mm atrial clip 05/22 -Aspirin, Plavix, statin, beta vince -Strict I's and O's, daily weights #Constipation -Continue with bowel regiment #Transaminitis secondary to hepatic congestion -Improving with diuresis -Continue to monitor #Leukocytosis -Likely reactive -Monitor fever profile with daily CBC Resolved: Acute hypoxic respiratory failure Objective - Vital Signs Vital signs: Vital Signs Temp 37.2 F L 05/24/22 08:30 Pulse 98 05/24/22 10:00 Resp 23 05/24/22 10:00 BP 132/67 05/24/22 10:00 Pulse Ox 96 05/24/22 10:00 FiO2 50 05/22/22 16:00 Intake & Output 05/23/22 05/24/22 05/24/22 18:59 06:59 18:59 Intake Total 950.280 5292.868 192.063 Output Total 770 605 318 Balance -160.859 395.868 -125.937 Weight 82.9 kg 83.1 kg Intake: IV 530 430 150 0.9 380 330 120 CO/CI 50 100 30 ceFAZolin 2 gm In Sodium 100 Chloride 0.9% 50 ml @ 100 mls/hr IVPB Q8HR [facility] Rx# :[id number] Intake, IV Titration 79.141 170.868 42.063 Amount Insulin Regular 100 unit 79.141 70.868 29.711 In Sodium Chloride 0.9% 100 ml @ Per Protocol IV .Q0M [facility] Rx#:[id number] Milrinone-D5w Pmx 20 mg 100 12.352 In Dextrose/Water 1 100ml .bag @ 0.2 MCG/KG/MIN 4. 974 mls/hr IV .Q20H7M [facility] Rx#:[id number] Oral 400 Output: Chest Tube Drainage 200 190 90 Mediastinal x 2 70 30 50 Right Pleural 130 160 40 Urine 570 415 228 Other: Voiding Method Indwelling Catheter Indwelling Catheter Indwelling Catheter ABP, PAP, CO, CI - Last Documented Arterial Blood Pressure 135/69 Pulmonary Artery Pressure 55/21 Cardiac Output 3.9 Cardiac Index 2.1 - Labs CBC & Chem 7: 05/24/22 04:17 05/24/22 04:17 Labs: Abnormal Lab Results - Last 24 Hours (Table) 05/23/22 05/23/22 05/23/22 Range/Units 12:54 14:16 15:02 WBC (3.8-10.6) k/uL RBC (3.80-5.40) m/uL Hgb (11.4-16.0) gm/dL Hct (34.0-46.0) % Plt Count (150-450) k/uL Neutrophils # (1.3-7.7) k/uL Monocytes # (0-1.0) k/uL Sodium (137-145) mmol/L BUN (7-17) mg/dL POC Glucose (mg/dL) 149 H 273 H 247 H (70-110) mg/dL AST (14-36) U/L Total Protein (6.3-8.2) g/dL Albumin (3.5-5.0) g/dL 05/23/22 05/23/22 05/23/22 Range/Units 16:10 17:00 18:05 WBC (3.8-10.6) k/uL RBC (3.80-5.40) m/uL Hgb (11.4-16.0) gm/dL Hct (34.0-46.0) % Plt Count (150-450) k/uL Neutrophils # (1.3-7.7) k/uL Monocytes # (0-1.0) k/uL Sodium (137-145) mmol/L BUN (7-17) mg/dL POC Glucose (mg/dL) 169 H 131 H 138 H (70-110) mg/dL AST (14-36) U/L Total Protein (6.3-8.2) g/dL Albumin (3.5-5.0) g/dL 05/23/22 05/23/22 05/23/22 Range/Units 19:11 20:02 21:19 WBC (3.8-10.6) k/uL RBC (3.80-5.40) m/uL Hgb (11.4-16.0) gm/dL Hct (34.0-46.0) % Plt Count (150-450) k/uL Neutrophils # (1.3-7.7) k/uL Monocytes # (0-1.0) k/uL Sodium (137-145) mmol/L BUN (7-17) mg/dL POC Glucose (mg/dL) 147 H 114 H 116 H (70-110) mg/dL AST (14-36) U/L Total Protein (6.3-8.2) g/dL Albumin (3.5-5.0) g/dL 05/23/22 05/24/22 05/24/22 Range/Units 22:08 00:14 01:17 WBC (3.8-10.6) k/uL RBC (3.80-5.40) m/uL Hgb (11.4-16.0) gm/dL Hct (34.0-46.0) % Plt Count (150-450) k/uL Neutrophils # (1.3-7.7) k/uL Monocytes # (0-1.0) k/uL Sodium (137-145) mmol/L BUN (7-17) mg/dL POC Glucose (mg/dL) 129 H 142 H 135 H (70-110) mg/dL AST (14-36) U/L Total Protein (6.3-8.2) g/dL Albumin (3.5-5.0) g/dL 05/24/22 05/24/22 05/24/22 Range/Units 03:06 04:17 04:17 WBC 15.6 H (3.8-10.6) k/uL RBC 2.53 L (3.80-5.40) m/uL Hgb 8.0 L (11.4-16.0) gm/dL Hct 23.9 L (34.0-46.0) % Plt Count 125 L (150-450) k/uL Neutrophils # 12.9 H (1.3-7.7) k/uL Monocytes # 1.2 H (0-1.0) k/uL Sodium 135 L (137-145) mmol/L BUN 21 H (7-17) mg/dL POC Glucose (mg/dL) 122 H (70-110) mg/dL AST 70 H (14-36) U/L Total Protein 5.1 L (6.3-8.2) g/dL Albumin 3.3 L (3.5-5.0) g/dL 05/24/22 05/24/22 05/24/22 Range/Units 05:00 07:58 09:04 WBC (3.8-10.6) k/uL RBC (3.80-5.40) m/uL Hgb (11.4-16.0) gm/dL Hct (34.0-46.0) % Plt Count (150-450) k/uL Neutrophils # (1.3-7.7) k/uL Monocytes # (0-1.0) k/uL Sodium (137-145) mmol/L BUN (7-17) mg/dL POC Glucose (mg/dL) 130 H 191 H 248 H (70-110) mg/dL AST (14-36) U/L Total Protein (6.3-8.2) g/dL Albumin (3.5-5.0) g/dL 05/24/22 05/24/22 Range/Units 10:03 11:05 WBC (3.8-10.6) k/uL RBC (3.80-5.40) m/uL Hgb (11.4-16.0) gm/dL Hct (34.0-46.0) % Plt Count (150-450) k/uL Neutrophils # (1.3-7.7) k/uL Monocytes # (0-1.0) k/uL Sodium (137-145) mmol/L BUN (7-17) mg/dL POC Glucose (mg/dL) 220 H 160 H (70-110) mg/dL AST (14-36) U/L Total Protein (6.3-8.2) g/dL Albumin (3.5-5.0) g/dL
[2022-05-24 11:59] LABS: Glucose,Whole Blood 113 mg/dL (70-110)
--- NOTE | 2022-05-24 12:00 | PN ---
PROGRESS NOTE SUBJECTIVE: Annetta is a 61-year-old lady with rheumatic heart disease with mitral stenosis and regurgitation who underwent mitral valve replacement. This morning she seems little more sleepy, remains in sinus rhythm, stable hemodynamically. PA pressures have increased and the cardiac index is around 2.1. OBJECTIVE: VITAL SIGNS: Heart rate is 90 beats per minute, blood pressure is 130/62, respiratory rate is 18. CHEST: Reveals diminished air entry bilaterally without any crackles or rhonchi. HEART: Reveals first and second heart sounds. No gallop. EXTREMITIES: Reveals mild edema. LABS: Show that the potassium is 4.2, creatinine is 0.7, hemoglobin is 8, platelet count is 125. ASSESSMENT: Rheumatic heart disease with mitral stenosis and regurgitation status post mitral valve replacement. PLAN: The patient will work on incentive spirometry, increase activity. MMODL / IJN: [id number] /
--- NOTE | 2022-05-24 12:10 | P.PN ---
Subjective Progress Note Date: 05/24/22 Principal diagnosis: Acute congestive heart failure secondary to severe mitral regurgitation/stenosis On today's evaluation of 05/18/2022, the patient is being seen for a follow-up. She was seen in consultation yesterday. The patient is still comfortable. She is alert and oriented 3. She continues to diabetes and the patient is receiving Lasix 40 mg IV every 12 hours. Her BUN is stable at 60 with 0.6. Her Sodium Is at 139 with a Potassium Level of 3.4 and the Patient Is in a Negative Fluid Balance. The Patient Is Overall Improving. Repeat ProBNP Level Was 1700. She Is Ambulating. She Is Using the Incentive Spirometer. Pulse Ox on Room Air Is around 95%. She Denies Having Any Chest Pain. She Denies Having Any Other Complaints. She Is Afebrile. No Other Issues Otherwise for Now. 27 2021, the patient remains in negative fluid balance as the patient is re ceiving Lasix 40 mg every 12 hours. Fluid balance was -1140 yesterday. In terms of her lungs work, the patient has a stable BUN of 25 with a creatinine of 0.7. Sodium is at 138. Potassium level was replaced and currently is up to 4.1. The white cell count at 7.1 with a hemoglobin of 14.1. The patient is currently on room air oxygen and she is carrying a pulse ox of 94%. She is ambulating. No chest pain. No extremity edema is improved. The patient is looking forward for surgery and we don't have the final date yet. The patient is seen today 05/20/2022 in follow-up on the selective care unit. She is sitting up at the bedside. Awake and alert in no acute distress. No worsening shortness of breath, cough or congestion. She is maintaining good O2 saturations in the 90s on room air. Chest x-ray showing improvement. The plan is for possible mitral valve replacement/repair on 05/22/2022. She is continued on a IV Lasix. Currently in a -1.7 L balance. Heparin for DVT prophylaxis. NicoDerm patch in place. Reevaluated today on , patient is scheduled to have surgery tomorrow. She will have mitral valve replacement/repair and this is again scheduled to be done tomorrow. Patient is doing well, no cough no wheezing no shortness of breath. She is on room air, O2 sats is 97%. Labs from today including a basic metabolic profile were unremarkable renal profile is normal. Reevaluated today on 05/23/22, patient is now postoperative day #1chordal preserving mitral valve replacement using a 27 mm Mosaic porcine bioprosthesis, tricuspid valve repair with ring annuloplasty using a 28 mm MC3 ring, exclusion of the left atrial appendage using a 35 mm AtriClip, intraoperative transesophageal echocardiogram and epi-aortic scanning. Patient was extubated last night around 7 PM, and she tolerated the extubation well. Patient remains in the ICU, denies any shortness of breath, she is in sinus rhythm, hemodynamically stable however she is still on low dose of Primacor, and amiodarone. No major issues over the last 12 hours. Patient is resting in a bedside chair, he is on few liters nasal cannula, chest x-ray showed minimal postoperative changes and atelectasis. Overall the patient is doing great. CBC is relatively normal hemoglobin is 9.4. Basic metabolic profile is normal. Cardiac output is 5.7, cardiac index is 3.1. CVP is 13. Reevaluated today on 05/24/22, patient remains in the ICU, she is on 3 L nasal cannula, she remains on Primacor at 0.1 mcg/kg/m, she is also on insulin 20 units per hour, IV fluid 0.9 normal saline at 20 mL per hour. Continues to have [place]-Celso catheter in place, her PA pressures are 50/23 and CVP is 11. Continues to have right-sided chest tube and mediastinal chest tube. WBC count is 15.6 hemoglobin is 8. Basic metabolic profile is normal renal profile is normal. Chest x-ray this a.m. showed minimal left lower lobe atelectasis, and her [place]-Celso catheter remains present Objective - Vital Signs Vital signs: Vital Signs Temp 37.2 F L 05/24/22 08:30 Pulse 98 05/24/22 10:00 Resp 23 05/24/22 10:00 BP 132/67 05/24/22 10:00 Pulse Ox 96 05/24/22 10:00 FiO2 50 05/22/22 16:00 Intake & Output 05/23/22 05/24/22 05/24/22 18:59 06:59 18:59 Intake Total 049.436 8023.868 192.063 Output Total 770 605 318 Balance -160.859 395.868 -125.937 Weight 82.9 kg 83.1 kg Intake: IV 530 430 150 0.9 380 330 120 CO/CI 50 100 30 ceFAZolin 2 gm In Sodium 100 Chloride 0.9% 50 ml @ 100 mls/hr IVPB Q8HR [facility] Rx# :[id number] Intake, IV Titration 79.141 170.868 42.063 Amount Insulin Regular 100 unit 79.141 70.868 29.711 In Sodium Chloride 0.9% 100 ml @ Per Protocol IV .Q0M [facility] Rx#:[id number] Milrinone-D5w Pmx 20 mg 100 12.352 In Dextrose/Water 1 100ml .bag @ 0.2 MCG/KG/MIN 4. 974 mls/hr IV .Q20H7M [facility] Rx#:[id number] Oral 400 Output: Chest Tube Drainage 200 190 90 Mediastinal x 2 70 30 50 Right Pleural 130 160 40 Urine 570 415 228 Other: Voiding Method Indwelling Catheter Indwelling Catheter Indwelling Catheter ABP, PAP, CO, CI - Last Documented Arterial Blood Pressure 135/69 Pulmonary Artery Pressure 55/21 Cardiac Output 3.9 Cardiac Index 2.1 - Exam Physical Exam: Revealed a very pleasant 61-year-old female in no distress. On 3 L nasal cannula Head: Atraumatic, normocephalic. HEENT:[Neck is supple.] [No neck masses.] [No thyromegaly.] [No JVD.] Right internal jugular [place]/cor this noted Chest: [Diminished breath sounds at the bases no crackles or rhonchi or wheezes] patient has mediastinal/right pleural chest tube present connected to wall suction, no air leak, mediastinal tube noted Cardiac Exam: [Normal S1 and S2, no S3 gallop, 2/6 systolic murmur thought the precordium. Abdomen: [Soft, nontender, no megaly, no rebound, no guarding, normal bowel sounds.] Extremities: [No clubbing, no edema, no cyanosis.] Neurological Exam: [No focal neurologic deficit.] Alert oriented 3. Psychiatric: Normal mood affect and normal mental status examination. Skin: No rashes. Musculoskeletal: No deformities and no limitation in range of motion - Labs CBC & Chem 7: 05/24/22 04:17 05/24/22 04:17 Labs: Abnormal Lab Results - Last 24 Hours (Table) 05/23/22 05/23/22 05/23/22 Range/Units 12:54 14:16 15:02 WBC (3.8-10.6) k/uL RBC (3.80-5.40) m/uL Hgb (11.4-16.0) gm/dL Hct (34.0-46.0) % Plt Count (150-450) k/uL Neutrophils # (1.3-7.7) k/uL Monocytes # (0-1.0) k/uL Sodium (137-145) mmol/L BUN (7-17) mg/dL POC Glucose (mg/dL) 149 H 273 H 247 H (70-110) mg/dL AST (14-36) U/L Total Protein (6.3-8.2) g/dL Albumin (3.5-5.0) g/dL 05/23/22 05/23/22 05/23/22 Range/Units 16:10 17:00 18:05 WBC (3.8-10.6) k/uL RBC (3.80-5.40) m/uL Hgb (11.4-16.0) gm/dL Hct (34.0-46.0) % Plt Count (150-450) k/uL Neutrophils # (1.3-7.7) k/uL Monocytes # (0-1.0) k/uL Sodium (137-145) mmol/L BUN (7-17) mg/dL POC Glucose (mg/dL) 169 H 131 H 138 H (70-110) mg/dL AST (14-36) U/L Total Protein (6.3-8.2) g/dL Albumin (3.5-5.0) g/dL 05/23/22 05/23/22 05/23/22 Range/Units 19:11 20:02 21:19 WBC (3.8-10.6) k/uL RBC (3.80-5.40) m/uL Hgb (11.4-16.0) gm/dL Hct (34.0-46.0) % Plt Count (150-450) k/uL Neutrophils # (1.3-7.7) k/uL Monocytes # (0-1.0) k/uL Sodium (137-145) mmol/L BUN (7-17) mg/dL POC Glucose (mg/dL) 147 H 114 H 116 H (70-110) mg/dL AST (14-36) U/L Total Protein (6.3-8.2) g/dL Albumin (3.5-5.0) g/dL 05/23/22 05/24/22 05/24/22 Range/Units 22:08 00:14 01:17 WBC (3.8-10.6) k/uL RBC (3.80-5.40) m/uL Hgb (11.4-16.0) gm/dL Hct (34.0-46.0) % Plt Count (150-450) k/uL Neutrophils # (1.3-7.7) k/uL Monocytes # (0-1.0) k/uL Sodium (137-145) mmol/L BUN (7-17) mg/dL POC Glucose (mg/dL) 129 H 142 H 135 H (70-110) mg/dL AST (14-36) U/L Total Protein (6.3-8.2) g/dL Albumin (3.5-5.0) g/dL 05/24/22 05/24/22 05/24/22 Range/Units 03:06 04:17 04:17 WBC 15.6 H (3.8-10.6) k/uL RBC 2.53 L (3.80-5.40) m/uL Hgb 8.0 L (11.4-16.0) gm/dL Hct 23.9 L (34.0-46.0) % Plt Count 125 L (150-450) k/uL Neutrophils # 12.9 H (1.3-7.7) k/uL Monocytes # 1.2 H (0-1.0) k/uL Sodium 135 L (137-145) mmol/L BUN 21 H (7-17) mg/dL POC Glucose (mg/dL) 122 H (70-110) mg/dL AST 70 H (14-36) U/L Total Protein 5.1 L (6.3-8.2) g/dL Albumin 3.3 L (3.5-5.0) g/dL 05/24/22 05/24/22 05/24/22 Range/Units 05:00 07:58 09:04 WBC (3.8-10.6) k/uL RBC (3.80-5.40) m/uL Hgb (11.4-16.0) gm/dL Hct (34.0-46.0) % Plt Count (150-450) k/uL Neutrophils # (1.3-7.7) k/uL Monocytes # (0-1.0) k/uL Sodium (137-145) mmol/L BUN (7-17) mg/dL POC Glucose (mg/dL) 130 H 191 H 248 H (70-110) mg/dL AST (14-36) U/L Total Protein (6.3-8.2) g/dL Albumin (3.5-5.0) g/dL 05/24/22 05/24/22 05/24/22 Range/Units 10:03 11:05 11:58 WBC (3.8-10.6) k/uL RBC (3.80-5.40) m/uL Hgb (11.4-16.0) gm/dL Hct (34.0-46.0) % Plt Count (150-450) k/uL Neutrophils # (1.3-7.7) k/uL Monocytes # (0-1.0) k/uL Sodium (137-145) mmol/L BUN (7-17) mg/dL POC Glucose (mg/dL) 220 H 160 H 113 H (70-110) mg/dL AST (14-36) U/L Total Protein (6.3-8.2) g/dL Albumin (3.5-5.0) g/dL Assessment and Plan Assessment: Impression: Postoperative day #2,chordal preserving mitral valve replacement using a 27 mm Mosaic porcine bioprosthesis, tricuspid valve repair with ring annuloplasty using a 28 mm MC3 ring, exclusion of the left atrial appendage using a 35 mm AtriClip, intraoperative transesophageal echocardiogram and epi-aortic scanning 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 Postoperative blood loss anemia, expected Postoperative atelectasis, expected Recommendation: Continue maximal medical therapy including beta blockers Plavix that an aspirin Continue amiodarone Taper and discontinue Primacor Incentive spirometry Continue insulin Data monitoring of x-rays and labs GI and DVT prophylaxis ambulation We will continue to follow Time with Patient: Less than 30
[2022-05-24] MEDS: SODIUM CHLORIDE 0.9% 1,000 ML IV SCH (12:51)
[2022-05-24 13:03] LABS: Glucose,Whole Blood 81 mg/dL (70-110)
[2022-05-24 15:04] LABS: Glucose,Whole Blood 166 mg/dL (70-110)
[2022-05-24] MEDS ORDERED: ALBUMIN HUMAN 5% 500 ML IVPB ONE (15:37)
[2022-05-24] MEDS: ALBUMIN HUMAN 5% 250 ML in EMPTY BAG 1 BAG IVPB PRN (15:58)
[2022-05-24] MEDS ORDERED: BUMETANIDE 0.25 MG/ML 4 ML VIAL IVP ONE (16:00)
[2022-05-24 16:08] LABS: Glucose,Whole Blood 172 mg/dL (70-110)
[2022-05-24 17:02] LABS: Glucose,Whole Blood 136 mg/dL (70-110)
[2022-05-24 18:13] LABS: Glucose,Whole Blood 181 mg/dL (70-110)
[2022-05-24 19:05] LABS: Glucose,Whole Blood 159 mg/dL (70-110)
[2022-05-24 20:13] LABS: Glucose,Whole Blood 113 mg/dL (70-110)
[2022-05-24] MEDS: SENNOSIDES-DOCUSATE SODIUM 1 EACH TAB PO SCH (20:19)
[2022-05-24 22:16] LABS: Glucose,Whole Blood 133 mg/dL (70-110)
[2022-05-24 23:13] LABS: Glucose,Whole Blood 149 mg/dL (70-110)
[2022-05-25] MEDS: KETOROLAC 15 MG/ML 1 ML VIAL IVP SCH ×4 (00:07→19:00)
[2022-05-25] MEDS: HEPARIN SODIUM,PORCINE/PF 5,000 UNIT/0.5 ML SYRINGE SQ SCH ×3 (00:07→16:27)
[2022-05-25] MEDS: MILRINONE-D5W PMX 20 MG in DEXTROSE/WATER 1 100ML.BAG IV SCH ×2 (00:11→17:32)
[2022-05-25 00:19] LABS: Glucose,Whole Blood 131 mg/dL (70-110)
[2022-05-25 01:21] LABS: Glucose,Whole Blood 101 mg/dL (70-110)
[2022-05-25] MEDS: HYDROcodone/APAP 5-325MG 1 EACH TAB PO PRN ×5 (01:23→16:31)
[2022-05-25 03:07] LABS: Glucose,Whole Blood 154 mg/dL (70-110)
[2022-05-25] MEDS ORDERED: BUMETANIDE 0.25 MG/ML 4 ML VIAL IVP STA (03:38)
[2022-05-25 04:19] LABS: Glucose,Whole Blood 122 mg/dL (70-110)
[2022-05-25 05:15] LABS: Glucose,Whole Blood 92 mg/dL (70-110)
[2022-05-25 05:35] LABS: Basophils % (A) 0 %; Eosinophils # (A) 0.1 k/uL (0-0.7); Eosinophils % (A) 1 %; HCT 21.4 % (34.0-46.0); Lymphocytes # (A) 1.1 k/uL (1.0-4.8); Lymphocytes % (A) 11 %; MCH 31.4 pg (25.0-35.0); MCHC 32.7 g/dL (31.0-37.0); MCV 96.1 fL (80.0-100.0); Mean Platelet Volume 10.8; Monocytes # (A) 0.7 k/uL (0-1.0); Monocytes % (A) 7 %; Neutrophils # (A) 7.9 k/uL (1.3-7.7); Neutrophils % (A) 79 %; Platelet Count 108 k/uL (150-450); RBC 2.22 m/uL (3.80-5.40); RDW 15.3 % (11.5-15.5)
[2022-05-25 06:13] LABS: Albumin 3.3 g/dL (3.5-5.0); Calcium 8.2 mg/dL (8.4-10.2); Potassium 4.1 mmol/L (3.5-5.1); Total Bilirubin 0.9 mg/dL (0.2-1.3); Total Protein 5.2 g/dL (6.3-8.2)
[2022-05-25 06:35] LABS: Glucose,Whole Blood 106 mg/dL (70-110)
[2022-05-25] MEDS: ASCORBIC ACID 500 MG TAB PO SCH ×2 (07:13→16:32)
[2022-05-25] MEDS: FERROUS SULFATE 325 MG TAB PO SCH ×2 (07:14→18:54)
[2022-05-25] MEDS: PANTOPRAZOLE 40 MG TABLET PO SCH (07:14)
[2022-05-25] MEDS: IPRATROPIUM-ALBUTEROL 3 ML NEB INHALATION SCH ×4 (07:26→20:12)
[2022-05-25] MEDS: SYMBICORT 160-4.5 MCG INHALER INHALATION SCH ×2 (07:26→20:12)
--- NOTE | 2022-05-25 07:39 | P.PN ---
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 History of mild nonobstructive coronary artery disease, hypertension, hyperlipidemia, previous tobacco dependence with recent cessation, severe COPD, supraventricular tachycardia, depression, remote history of pneumonia, and family history of coronary artery disease POD #3 chordal preserving mitral valve replacement using a 27 mm Mosaic porcine bioprosthesis, tricuspid valve repair with ring annuloplasty using a 28 mm MC3 ring, exclusion of the left atrial appendage using a 35 mm AtriClip, intraoperative transesophageal echocardiogram and epi-aortic scanning Postoperative acute blood loss anemia, expected given hemodilution and cardiopulmonary bypass pump The patient was seen and examined with morning sitting up in a recliner intensive care unit in no acute distress. Denies pain or shortness of breath, patient is in good spirits with no complaints. Currently sinus rhythm, blood pressure soft, remains on IV Primacor due to low cardiac output/index. Urine output marginal despite Bumex. Right internal jugular [place]/cordis, right brachial arterial line, right pleural chest tubes all remain. Currently on 2 L nasal cannula with oxygen saturation in the high 90s No other new concerns. Objective - Vital Signs Vital signs: Vital Signs Temp 98.4 F 05/25/22 04:00 Pulse 87 05/25/22 07:27 Resp 21 05/25/22 05:00 BP 80/58 05/25/22 05:00 Pulse Ox 98 05/25/22 07:30 FiO2 50 05/22/22 16:00 Intake & Output 05/24/22 05/25/22 05/25/22 18:59 06:59 18:59 Intake Total 496.282 777.990 Output Total 603 285 Balance -106.718 492.990 Intake: IV 410 461 0.9 360 300 CO/CI 50 80 pressure bag 81 Intake, IV Titration 86.282 116.990 Amount Insulin Regular 100 unit 53.329 63.204 In Sodium Chloride 0.9% 100 ml @ Per Protocol IV .Q0M [facility] Rx#:[id number] Milrinone-D5w Pmx 20 mg 32.953 53.786 In Dextrose/Water 1 100ml .bag @ 0.25 MCG/KG/MIN 6. 218 mls/hr IV .Q16H5M [facility] Rx#:[id number] Oral 200 Output: Chest Tube Drainage 160 40 Mediastinal x 2 50 Right Pleural 110 40 Urine 443 245 Other: Voiding Method Indwelling Catheter Indwelling Catheter ABP, PAP, CO, CI - Last Documented Arterial Blood Pressure 98/55 Pulmonary Artery Pressure 63/34 Cardiac Output 4.1 Cardiac Index 2.2 - Exam CONSTITUTIONAL: Appears comfortable, cooperative, no acute distress RESPIRATORY: Lungs sounds diminished bilaterally. Respirations even, nonlabored. Currently on 2 L nasal cannula with oxygen saturation 96%. Able to achieve 750 mL on incentive spirometry. Strong nonproductive cough. CARDIOVASCULAR: S1, S2 present. Regular rate and rhythm, sinus rhythm on telemetry. Sternum stable. Palpable peripheral pulses bilaterally. No edema present. No calf pain or tenderness noted. Heart hugger in place with patient demonstrating appropriate use. Antiembolism stockings, SCDs present. GASTROINTESTINAL: Abdomen soft, nontender, nondistended. Active bowel sounds present 4 quadrants. Tolerating diet. Positive flatus GENITOURINARY: [place] present draining clear, yellow urine. Output overnight 10-30 mL per hour, 748 mL in the last 24 hours INTEGUMENTARY: Skin is warm and dry with evidence of good perfusion. Anterior chest incision well approximated and covered with dry intact dressing NEUROLOGIC: Cranial nerves II through XII intact MUSKULOSKELETAL: Able to move all extremities, strength equal bilaterally, gait normal PSYCHIATRIC: Alert and oriented to person place and time, appropriate affect, intact judgment and insight INVASIVE LINES AND TUBES: Right pleural chest tube present and connected to wall suction, no air leak present, 300 mL serosanguineous drainage in the last 24 hours. A/V epicardial pacemaker wires present, grounded. Right internal jugular [place]/Cordis, right brachial arterial line present. Last CO/CI 4.1/2.2, PA 52/20, CVP 15 - Allied health notes Allied health notes reviewed: nursing - Labs CBC & Chem 7: 05/25/22 05:16 05/25/22 05:16 Labs: Abnormal Lab Results - Last 24 Hours (Table) 05/24/22 05/24/22 05/24/22 Range/Units 07:58 09:04 10:03 RBC (3.80-5.40) m/uL Hgb (11.4-16.0) gm/dL Hct (34.0-46.0) % Plt Count (150-450) k/uL Neutrophils # (1.3-7.7) k/uL Sodium (137-145) mmol/L BUN (7-17) mg/dL Creatinine (0.52-1.04) mg/dL POC Glucose (mg/dL) 191 H 248 H 220 H (70-110) mg/dL Calcium (8.4-10.2) mg/dL AST (14-36) U/L Total Protein (6.3-8.2) g/dL Albumin (3.5-5.0) g/dL 05/24/22 05/24/22 05/24/22 Range/Units 11:05 11:58 15:03 RBC (3.80-5.40) m/uL Hgb (11.4-16.0) gm/dL Hct (34.0-46.0) % Plt Count (150-450) k/uL Neutrophils # (1.3-7.7) k/uL Sodium (137-145) mmol/L BUN (7-17) mg/dL Creatinine (0.52-1.04) mg/dL POC Glucose (mg/dL) 160 H 113 H 166 H (70-110) mg/dL Calcium (8.4-10.2) mg/dL AST (14-36) U/L Total Protein (6.3-8.2) g/dL Albumin (3.5-5.0) g/dL 05/24/22 05/24/22 05/24/22 Range/Units 16:06 17:01 18:11 RBC (3.80-5.40) m/uL Hgb (11.4-16.0) gm/dL Hct (34.0-46.0) % Plt Count (150-450) k/uL Neutrophils # (1.3-7.7) k/uL Sodium (137-145) mmol/L BUN (7-17) mg/dL Creatinine (0.52-1.04) mg/dL POC Glucose (mg/dL) 172 H 136 H 181 H (70-110) mg/dL Calcium (8.4-10.2) mg/dL AST (14-36) U/L Total Protein (6.3-8.2) g/dL Albumin (3.5-5.0) g/dL 05/24/22 05/24/22 05/24/22 Range/Units 19:04 20:12 22:14 RBC (3.80-5.40) m/uL Hgb (11.4-16.0) gm/dL Hct (34.0-46.0) % Plt Count (150-450) k/uL Neutrophils # (1.3-7.7) k/uL Sodium (137-145) mmol/L BUN (7-17) mg/dL Creatinine (0.52-1.04) mg/dL POC Glucose (mg/dL) 159 H 113 H 133 H (70-110) mg/dL Calcium (8.4-10.2) mg/dL AST (14-36) U/L Total Protein (6.3-8.2) g/dL Albumin (3.5-5.0) g/dL 05/24/22 05/25/22 05/25/22 Range/Units 23:11 00:18 02:56 RBC (3.80-5.40) m/uL Hgb (11.4-16.0) gm/dL Hct (34.0-46.0) % Plt Count (150-450) k/uL Neutrophils # (1.3-7.7) k/uL Sodium (137-145) mmol/L BUN (7-17) mg/dL Creatinine (0.52-1.04) mg/dL POC Glucose (mg/dL) 149 H 131 H 154 H (70-110) mg/dL Calcium (8.4-10.2) mg/dL AST (14-36) U/L Total Protein (6.3-8.2) g/dL Albumin (3.5-5.0) g/dL 05/25/22 05/25/22 05/25/22 Range/Units 04:17 05:16 05:16 RBC 2.22 L (3.80-5.40) m/uL Hgb 7.0 L (11.4-16.0) gm/dL Hct 21.4 L (34.0-46.0) % Plt Count 108 L (150-450) k/uL Neutrophils # 7.9 H (1.3-7.7) k/uL Sodium 133 L (137-145) mmol/L BUN 28 H (7-17) mg/dL Creatinine 1.11 H (0.52-1.04) mg/dL POC Glucose (mg/dL) 122 H (70-110) mg/dL Calcium 8.2 L (8.4-10.2) mg/dL AST 49 H (14-36) U/L Total Protein 5.2 L (6.3-8.2) g/dL Albumin 3.3 L (3.5-5.0) g/dL - Imaging and Cardiology Chest x-ray: image reviewed Assessment and Plan Assessment: 1. 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 Preserved left ventricular systolic function, moderate right ventricular dysfunction, EF 55-60% 3. Moderate tricuspid valve regurgitation, status post tricuspid valve repair 4. Acute on chronic diastolic heart failure 5. Transaminitis 6. History of mild nonobstructive coronary artery disease 7. Hypertension 8. Hyperlipidemia, treated, cholesterol 196, LDL 99, triglycerides 254 9. Previous tobacco dependence with recent cessation 10. Severe COPD, preoperative FEV1 42% of predicted 11. History of supraventricular tachycardia 12. Depression 13. Remote history of pneumonia 14. Family history of coronary artery disease 15. Postoperative acute blood loss anemia, expected Plan: 1. Continue to maximize medical therapy with aspirin, statin, Plavix, beta vince. Continue Norvasc for radial artery spasm prophylaxis and pulmonary hypertension with hold parameters 2. Continue amiodarone for A. fib prophylaxis, will taper weekly 3. Will wean Primacor as tolerated 4. Wean O2 as tolerated. Encourage incentive spirometry 10 times every hour while awake. Bronchodilators per pulmonology 5. Increase activity as tolerated. PT/OT/cardiac rehab consulted 6. Will monitor daily labs and x-rays. Electrolyte replacement per protocol 7. GI/DVT prophylaxis 8. Pain control with current medication regimen 9. Insulin management per internal medicine service. Preoperative hemoglobin A1c 6.4% 10. Continue [place]/Cordis, arterial line for another 24 hours, may discontinue [place] later this afternoon 11. Will continue right pleural chest tubes for another 24 hours 12. Continue Crespo catheter for another 24 hours for strict accurate intake and output. Daily weights 13. More recommendations to follow
--- NOTE | 2022-05-25 07:41 | XR ---
EXAMINATION TYPE: XR chest 1V portable DATE OF EXAM: 05/25/2022 6:15 AM COMPARISON: Chest radiographs from 06/11/2022 TECHNIQUE: XR chest 1V portable Portable AP radiograph of the chest. CLINICAL INDICATION:Female, 61 years old with history of post cardiac surgery; FINDINGS: Lungs/Pleura: There is no evidence of pleural effusion, focal consolidation, or pneumothorax. Pulmonary vascularity: Unremarkable. Heart/mediastinum: Cardiomediastinal silhouette is enlarged and stable. Musculoskeletal: No acute osseous pathology. Lines/Tubes: There is a [place]-Celso catheter with tip projecting over the spine. IMPRESSION: Stable exam with basilar atelectasis.
[2022-05-25 08:15] LABS: Glucose,Whole Blood 167 mg/dL (70-110)
[2022-05-25] MEDS: ASPIRIN 325 MG TAB PO SCH (08:37)
[2022-05-25] MEDS: CLOPIDOGREL 75 MG TAB PO SCH (08:37)
[2022-05-25] MEDS: CITALOPRAM HYDROBROMIDE 20 MG TAB PO SCH ×2 (08:38→20:13)
[2022-05-25] MEDS: ATORVASTATIN 40 MG TAB PO SCH (08:38)
[2022-05-25] MEDS: polyethylene glycoL 3350 17 GM POWD.PACK PO SCH (08:40)
[2022-05-25] MEDS: METOPROLOL TARTRATE 25 MG TAB PO SCH ×3 (08:40→20:12)
[2022-05-25 09:06] LABS: Glucose,Whole Blood 153 mg/dL (70-110)
[2022-05-25] MEDS: AMIODARONE 200 MG TAB PO SCH ×2 (09:24→20:13)
[2022-05-25 09:58] LABS: Glucose,Whole Blood 139 mg/dL (70-110)
[2022-05-25 11:33] LABS: Glucose,Whole Blood 99 mg/dL (70-110)
[2022-05-25 11:55] LABS: Glucose,Whole Blood 118 mg/dL (70-110)
[2022-05-25] MEDS ORDERED: amLODIPine 5 MG TAB PO SCH (12:00)
--- NOTE | 2022-05-25 12:19 | P.PN ---
Subjective Progress Note Date: 05/25/22 Principal diagnosis: Acute congestive heart failure secondary to severe mitral regurgitation/stenosis On today's evaluation of 05/18/2022, the patient is being seen for a follow-up. She was seen in consultation yesterday. The patient is still comfortable. She is alert and oriented 3. She continues to diabetes and the patient is receiving Lasix 40 mg IV every 12 hours. Her BUN is stable at 60 with 0.6. Her Sodium Is at 139 with a Potassium Level of 3.4 and the Patient Is in a Negative Fluid Balance. The Patient Is Overall Improving. Repeat ProBNP Level Was 1700. She Is Ambulating. She Is Using the Incentive Spirometer. Pulse Ox on Room Air Is around 95%. She Denies Having Any Chest Pain. She Denies Having Any Other Complaints. She Is Afebrile. No Other Issues Otherwise for Now. 27 2021, the patient remains in negative fluid balance as the patient is re ceiving Lasix 40 mg every 12 hours. Fluid balance was -1140 yesterday. In terms of her lungs work, the patient has a stable BUN of 25 with a creatinine of 0.7. Sodium is at 138. Potassium level was replaced and currently is up to 4.1. The white cell count at 7.1 with a hemoglobin of 14.1. The patient is currently on room air oxygen and she is carrying a pulse ox of 94%. She is ambulating. No chest pain. No extremity edema is improved. The patient is looking forward for surgery and we don't have the final date yet. The patient is seen today 05/20/2022 in follow-up on the selective care unit. She is sitting up at the bedside. Awake and alert in no acute distress. No worsening shortness of breath, cough or congestion. She is maintaining good O2 saturations in the 90s on room air. Chest x-ray showing improvement. The plan is for possible mitral valve replacement/repair on 05/22/2022. She is continued on a IV Lasix. Currently in a -1.7 L balance. Heparin for DVT prophylaxis. NicoDerm patch in place. Reevaluated today on , patient is scheduled to have surgery tomorrow. She will have mitral valve replacement/repair and this is again scheduled to be done tomorrow. Patient is doing well, no cough no wheezing no shortness of breath. She is on room air, O2 sats is 97%. Labs from today including a basic metabolic profile were unremarkable renal profile is normal. Reevaluated today on 05/23/22, patient is now postoperative day #1chordal preserving mitral valve replacement using a 27 mm Mosaic porcine bioprosthesis, tricuspid valve repair with ring annuloplasty using a 28 mm MC3 ring, exclusion of the left atrial appendage using a 35 mm AtriClip, intraoperative transesophageal echocardiogram and epi-aortic scanning. Patient was extubated last night around 7 PM, and she tolerated the extubation well. Patient remains in the ICU, denies any shortness of breath, she is in sinus rhythm, hemodynamically stable however she is still on low dose of Primacor, and amiodarone. No major issues over the last 12 hours. Patient is resting in a bedside chair, he is on few liters nasal cannula, chest x-ray showed minimal postoperative changes and atelectasis. Overall the patient is doing great. CBC is relatively normal hemoglobin is 9.4. Basic metabolic profile is normal. Cardiac output is 5.7, cardiac index is 3.1. CVP is 13. Reevaluated today on 05/24/22, patient remains in the ICU, she is on 3 L nasal cannula, she remains on Primacor at 0.1 mcg/kg/m, she is also on insulin 20 units per hour, IV fluid 0.9 normal saline at 20 mL per hour. Continues to have [place]-Celso catheter in place, her PA pressures are 50/23 and CVP is 11. Continues to have right-sided chest tube and mediastinal chest tube. WBC count is 15.6 hemoglobin is 8. Basic metabolic profile is normal renal profile is normal. Chest x-ray this a.m. showed minimal left lower lobe atelectasis, and her [place]-Celso catheter remains present Reevaluated today on 06/21/22, patient remains in the ICU, patient is postoperative day #3,chordal preserving mitral valve replacement using a 27 mm Mosaic porcine bioprosthesis, tricuspid valve repair with ring annuloplasty using a 28 mm MC3 ring, exclusion of the left atrial appendage using a 35 mm AtriClip, intraoperative transesophageal echocardiogram and epi-aortic scanning. Cardiac output remains marginal and the patient remains on Primacor, blood pressure is marginal, urine output is marginal and she is receiving Bumex. Pul monary-kumar she is on 2 L nasal cannula, chest x-ray showed mostly by basilar atelectasis, no evidence of congestive heart failure. WBC count of 10 hemoglobin is 7, electrolytes are normal renal profile is normal. Cardiac output/cardiac index 4.1/2.2. CVP is 15. He a pressure 52/20 Objective - Vital Signs Vital signs: Vital Signs Temp 98.2 F 05/25/22 12:00 Pulse 87 05/25/22 12:00 Resp 15 05/25/22 12:00 BP 118/54 05/25/22 11:48 Pulse Ox 96 05/25/22 12:00 FiO2 50 05/22/22 16:00 Intake & Output 05/24/22 05/25/22 05/25/22 18:59 06:59 18:59 Intake Total 923.613 1983.990 231.867 Output Total 603 345 335 Balance -106.718 910.990 -103.133 Weight 86.5 kg Intake: IV 410 539 220 0.9 360 360 145 CO/CI 50 80 30 pressure bag 99 45 Intake, IV Titration 86.282 116.990 11.867 Amount Insulin Regular 100 unit 53.329 63.204 11.867 In Sodium Chloride 0.9% 100 ml @ Per Protocol IV .Q0M VERONICA Rx#:[id number] Milrinone-D5w Pmx 20 mg 32.953 53.786 In Dextrose/Water 1 100ml .bag @ 0.2 MCG/KG/MIN 4. 974 mls/hr IV .Q20H7M VERONICA Rx#:[id number] Oral 600 Blood Product 0 Rc As-1 Unit 0 [id number] Output: Chest Tube Drainage 160 40 170 Mediastinal x 2 50 Right Pleural 110 40 170 Urine 443 305 165 Other: Voiding Method Indwelling Catheter Indwelling Catheter ABP, PAP, CO, CI - Last Documented Arterial Blood Pressure 115/52 Pulmonary Artery Pressure 63/23 Cardiac Output 3.9 Cardiac Index 2.1 - Exam Physical Exam: Revealed a very pleasant 61-year-old female in no distress. On 2 L nasal cannula Head: Atraumatic, normocephalic. Continues to have right IJ Pl[place]/cor this. HEENT:[Neck is supple.] [No neck masses.] [No thyromegaly.] [No JVD.] Right internal jugular Plano/cor this noted Chest: Diminished breath sounds at the bases, minimal crackles at the bases no rhonchi no wheezes, continues to have right-sided pleural chest tube connected to wall suction, no air leak, 300 mL of serosanguineous drainage over the last 24 hours. Cardiac Exam: [Normal S1 and S2, no S3 gallop, 2/6 systolic murmur thought the precordium. Abdomen: [Soft, nontender, no megaly, no rebound, no guarding, normal bowel sounds.] Extremities: [No clubbing, no edema, no cyanosis.] Neurological Exam: [No focal neurologic deficit.] Alert oriented 3. Psychiatric: Normal mood affect and normal mental status examination. Skin: No rashes. Musculoskeletal: No deformities and no limitation in range of motion - Labs CBC & Chem 7: 05/25/22 05:16 05/25/22 05:16 Labs: Abnormal Lab Results - Last 24 Hours (Table) 05/24/22 05/24/22 05/24/22 Range/Units 15:03 16:06 17:01 RBC (3.80-5.40) m/uL Hgb (11.4-16.0) gm/dL Hct (34.0-46.0) % Plt Count (150-450) k/uL Neutrophils # (1.3-7.7) k/uL Sodium (137-145) mmol/L BUN (7-17) mg/dL Creatinine (0.52-1.04) mg/dL POC Glucose (mg/dL) 166 H 172 H 136 H (70-110) mg/dL Calcium (8.4-10.2) mg/dL AST (14-36) U/L Total Protein (6.3-8.2) g/dL Albumin (3.5-5.0) g/dL Crossmatch 05/24/22 05/24/22 05/24/22 Range/Units 18:11 19:04 20:12 RBC (3.80-5.40) m/uL Hgb (11.4-16.0) gm/dL Hct (34.0-46.0) % Plt Count (150-450) k/uL Neutrophils # (1.3-7.7) k/uL Sodium (137-145) mmol/L BUN (7-17) mg/dL Creatinine (0.52-1.04) mg/dL POC Glucose (mg/dL) 181 H 159 H 113 H (70-110) mg/dL Calcium (8.4-10.2) mg/dL AST (14-36) U/L Total Protein (6.3-8.2) g/dL Albumin (3.5-5.0) g/dL Crossmatch 05/24/22 05/24/22 05/25/22 Range/Units 22:14 23:11 00:18 RBC (3.80-5.40) m/uL Hgb (11.4-16.0) gm/dL Hct (34.0-46.0) % Plt Count (150-450) k/uL Neutrophils # (1.3-7.7) k/uL Sodium (137-145) mmol/L BUN (7-17) mg/dL Creatinine (0.52-1.04) mg/dL POC Glucose (mg/dL) 133 H 149 H 131 H (70-110) mg/dL Calcium (8.4-10.2) mg/dL AST (14-36) U/L Total Protein (6.3-8.2) g/dL Albumin (3.5-5.0) g/dL Crossmatch 05/25/22 05/25/22 05/25/22 Range/Units 02:56 04:17 05:16 RBC 2.22 L (3.80-5.40) m/uL Hgb 7.0 L (11.4-16.0) gm/dL Hct 21.4 L (34.0-46.0) % Plt Count 108 L (150-450) k/uL Neutrophils # 7.9 H (1.3-7.7) k/uL Sodium (137-145) mmol/L BUN (7-17) mg/dL Creatinine (0.52-1.04) mg/dL POC Glucose (mg/dL) 154 H 122 H (70-110) mg/dL Calcium (8.4-10.2) mg/dL AST (14-36) U/L Total Protein (6.3-8.2) g/dL Albumin (3.5-5.0) g/dL Crossmatch 05/25/22 05/25/22 05/25/22 Range/Units 05:16 08:13 09:04 RBC (3.80-5.40) m/uL Hgb (11.4-16.0) gm/dL Hct (34.0-46.0) % Plt Count (150-450) k/uL Neutrophils # (1.3-7.7) k/uL Sodium 133 L (137-145) mmol/L BUN 28 H (7-17) mg/dL Creatinine 1.11 H (0.52-1.04) mg/dL POC Glucose (mg/dL) 167 H 153 H (70-110) mg/dL Calcium 8.2 L (8.4-10.2) mg/dL AST 49 H (14-36) U/L Total Protein 5.2 L (6.3-8.2) g/dL Albumin 3.3 L (3.5-5.0) g/dL Crossmatch 05/25/22 05/25/22 05/25/22 Range/Units 09:38 09:56 11:54 RBC (3.80-5.40) m/uL Hgb (11.4-16.0) gm/dL Hct (34.0-46.0) % Plt Count (150-450) k/uL Neutrophils # (1.3-7.7) k/uL Sodium (137-145) mmol/L BUN (7-17) mg/dL Creatinine (0.52-1.04) mg/dL POC Glucose (mg/dL) 139 H 118 H (70-110) mg/dL Calcium (8.4-10.2) mg/dL AST (14-36) U/L Total Protein (6.3-8.2) g/dL Albumin (3.5-5.0) g/dL Crossmatch See Detail Assessment and Plan Assessment: Impression: Postoperative day #2,chordal preserving mitral valve replacement using a 27 mm Mosaic porcine bioprosthesis, tricuspid valve repair with ring annuloplasty using a 28 mm MC3 ring, exclusion of the left atrial appendage using a 35 mm AtriClip, intraoperative transesophageal echocardiogram and epi-aortic scanning 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 Postoperative blood loss anemia, expected Postoperative atelectasis, expected Recommendation: Continue maximal medical therapy including beta blockers Plavix that an aspirin Continue amiodarone, for atrial fibrillation prophylaxis. Titrate Primacor based on her cardiac output/index. Continue chest tube for now. Incentive spirometry Continue insulin Data monitoring of x-rays and labs GI and DVT prophylaxis ambulation We will continue to follow Time with Patient: Less than 30
[2022-05-25 13:25] LABS: Glucose,Whole Blood 156 mg/dL (70-110)
[2022-05-25] MEDS: INSULIN REGULAR 100 UNIT in SODIUM CHLORIDE 0.9% 100 ML IV SCH (13:31)
--- NOTE | 2022-05-25 14:07 | P.PN ---
Subjective Progress Note Date: 05/25/22 Patient is a 61-year-old female with recently diagnosed rheumatic mitral valve disease with severe stenosis and regurg, severe pulmonary hypertension, and HTN who presented to the emergency room with complaints of shortness of breath, lower extremity edema, and abdominal distention. The patient was recently admitted to the hospital from 04/25-04/27 for similar complaints, at which time she was diagnosed with the above mitral valve disease. The patient was advised to follow-up as an outpatient for an elective mitral valve repair/replacement with cardiothoracic surgery. Upon arrival at the emergency room vital signs were within normal limits. Chest CTA revealed no evidence of PE with a right pleural effusion. EKG revealed sinus tachycardia with PVCs at 102 bpm with no notable ST/T-wave changes noted as reviewed by me. Laboratory evaluation was remarkable for troponin of less than 0.012, proBNP 3870, AST 132, ALT 158, and alk phos 232 with a total bilirubin 1.4. She was admitted for acute exacerbation of right- sided heart failure in the setting of severe mitral valve disease. She was started on IV diuresis and cardiology was consulted. Cardiovascular surgery was also consulted. Patient underwent open heart surgery with mitral valve replacement, tricuspid valve repair, exclusion of the left atrial appendage with a 35mm atrial clip on 05/22. She was extubated on 05/22. Patient was seen and examined. No acute events overnight. She is POD 3. Frustrated that she is not progressing fast enough. Hemoglobin is 7 today. General: nontoxic, no distress, appears at stated age Derm: warm, dry Head: atraumatic, normocephalic, symmetric Eyes: ROMAN, no lid lag, anicteric sclera Mouth: no lip lesion, mucus membranes moist Cardiovascular: S1S2 reg, with murmur, mediastinal and pleural chest tubes in place Lungs: Decreased BS bilateral, no rhonchi, no rales , no accessory muscle use Ext: no gross muscle atrophy, trace edema, no contractures Neuro: no focal neuro deficits Psych: Alert, oriented, appropriate affect #Acute blood loss anemia -Expected result of surgery -Transfuse PRBC -Continue to monitor #Acute kidney injury -Likely due to bumex -Daily BMP #Acute exacerbation of right-sided heart failure, cor pulmonale in the setting of severe mitral valve disease #Severe mitral regurgitation with moderate to severe stenosis #Severe pulmonary hypertension #Nonobstructive coronary artery disease #Hypertension -Cardiothoracic surgery on board -Status post mitral valve replacement, tricuspid valve repair, exclusion of the left atrial appendage with a 35mm atrial clip 05/22 -Aspirin, Plavix, statin, beta vince -On Amiodarone for AFib prophylaxis -On Milrinone due to low cardiac index -Strict I's and O's, daily weights #Constipation -Continue with bowel regiment #Transaminitis secondary to hepatic congestion -Improving with diuresis -Continue to monitor #Leukocytosis -Likely reactive -Monitor fever profile with daily CBC Resolved: Acute hypoxic respiratory failure Objective - Vital Signs Vital signs: Vital Signs Temp 98.1 F 05/25/22 13:57 Pulse 78 05/25/22 13:57 Resp 23 05/25/22 13:30 BP 116/62 05/25/22 13:57 Pulse Ox 95 05/25/22 13:57 FiO2 50 05/22/22 16:00 Intake & Output 05/24/22 05/25/22 05/25/22 18:59 06:59 18:59 Intake Total 538.314 8376.990 639.176 Output Total 603 345 425 Balance -106.718 910.990 214.176 Weight 86.5 kg Intake: IV 410 539 308 0.9 360 360 195 CO/CI 50 80 50 pressure bag 99 63 Intake, IV Titration 86.282 116.990 21.176 Amount Insulin Regular 100 unit 53.329 63.204 21.176 In Sodium Chloride 0.9% 100 ml @ Per Protocol IV .Q0M VERONICA Rx#:[id number] Milrinone-D5w Pmx 20 mg 32.953 53.786 In Dextrose/Water 1 100ml .bag @ 0.2 MCG/KG/MIN 4. 974 mls/hr IV .Q20H7M VERONICA Rx#:[id number] Oral 600 Blood Product 310 Rc As-1 Unit 310 [id number] Output: Chest Tube Drainage 160 40 200 Mediastinal x 2 50 Right Pleural 110 40 200 Urine 443 305 225 Other: Voiding Method Indwelling Catheter Indwelling Catheter Indwelling Catheter ABP, PAP, CO, CI - Last Documented Arterial Blood Pressure 106/51 Pulmonary Artery Pressure 67/19 Cardiac Output 5.8 Cardiac Index 3.2 - Labs CBC & Chem 7: 05/25/22 05:16 05/25/22 05:16 Labs: Abnormal Lab Results - Last 24 Hours (Table) 05/24/22 05/24/22 05/24/22 Range/Units 15:03 16:06 17:01 RBC (3.80-5.40) m/uL Hgb (11.4-16.0) gm/dL Hct (34.0-46.0) % Plt Count (150-450) k/uL Neutrophils # (1.3-7.7) k/uL Sodium (137-145) mmol/L BUN (7-17) mg/dL Creatinine (0.52-1.04) mg/dL POC Glucose (mg/dL) 166 H 172 H 136 H (70-110) mg/dL Calcium (8.4-10.2) mg/dL AST (14-36) U/L Total Protein (6.3-8.2) g/dL Albumin (3.5-5.0) g/dL Crossmatch 05/24/22 05/24/22 05/24/22 Range/Units 18:11 19:04 20:12 RBC (3.80-5.40) m/uL Hgb (11.4-16.0) gm/dL Hct (34.0-46.0) % Plt Count (150-450) k/uL Neutrophils # (1.3-7.7) k/uL Sodium (137-145) mmol/L BUN (7-17) mg/dL Creatinine (0.52-1.04) mg/dL POC Glucose (mg/dL) 181 H 159 H 113 H (70-110) mg/dL Calcium (8.4-10.2) mg/dL AST (14-36) U/L Total Protein (6.3-8.2) g/dL Albumin (3.5-5.0) g/dL Crossmatch 05/24/22 05/24/22 05/25/22 Range/Units 22:14 23:11 00:18 RBC (3.80-5.40) m/uL Hgb (11.4-16.0) gm/dL Hct (34.0-46.0) % Plt Count (150-450) k/uL Neutrophils # (1.3-7.7) k/uL Sodium (137-145) mmol/L BUN (7-17) mg/dL Creatinine (0.52-1.04) mg/dL POC Glucose (mg/dL) 133 H 149 H 131 H (70-110) mg/dL Calcium (8.4-10.2) mg/dL AST (14-36) U/L Total Protein (6.3-8.2) g/dL Albumin (3.5-5.0) g/dL Crossmatch 05/25/22 05/25/22 05/25/22 Range/Units 02:56 04:17 05:16 RBC 2.22 L (3.80-5.40) m/uL Hgb 7.0 L (11.4-16.0) gm/dL Hct 21.4 L (34.0-46.0) % Plt Count 108 L (150-450) k/uL Neutrophils # 7.9 H (1.3-7.7) k/uL Sodium (137-145) mmol/L BUN (7-17) mg/dL Creatinine (0.52-1.04) mg/dL POC Glucose (mg/dL) 154 H 122 H (70-110) mg/dL Calcium (8.4-10.2) mg/dL AST (14-36) U/L Total Protein (6.3-8.2) g/dL Albumin (3.5-5.0) g/dL Crossmatch 05/25/22 05/25/22 05/25/22 Range/Units 05:16 08:13 09:04 RBC (3.80-5.40) m/uL Hgb (11.4-16.0) gm/dL Hct (34.0-46.0) % Plt Count (150-450) k/uL Neutrophils # (1.3-7.7) k/uL Sodium 133 L (137-145) mmol/L BUN 28 H (7-17) mg/dL Creatinine 1.11 H (0.52-1.04) mg/dL POC Glucose (mg/dL) 167 H 153 H (70-110) mg/dL Calcium 8.2 L (8.4-10.2) mg/dL AST 49 H (14-36) U/L Total Protein 5.2 L (6.3-8.2) g/dL Albumin 3.3 L (3.5-5.0) g/dL Crossmatch 05/25/22 05/25/22 05/25/22 Range/Units 09:38 09:56 11:54 RBC (3.80-5.40) m/uL Hgb (11.4-16.0) gm/dL Hct (34.0-46.0) % Plt Count (150-450) k/uL Neutrophils # (1.3-7.7) k/uL Sodium (137-145) mmol/L BUN (7-17) mg/dL Creatinine (0.52-1.04) mg/dL POC Glucose (mg/dL) 139 H 118 H (70-110) mg/dL Calcium (8.4-10.2) mg/dL AST (14-36) U/L Total Protein (6.3-8.2) g/dL Albumin (3.5-5.0) g/dL Crossmatch See Detail 05/25/22 Range/Units 13:24 RBC (3.80-5.40) m/uL Hgb (11.4-16.0) gm/dL Hct (34.0-46.0) % Plt Count (150-450) k/uL Neutrophils # (1.3-7.7) k/uL Sodium (137-145) mmol/L BUN (7-17) mg/dL Creatinine (0.52-1.04) mg/dL POC Glucose (mg/dL) 156 H (70-110) mg/dL Calcium (8.4-10.2) mg/dL AST (14-36) U/L Total Protein (6.3-8.2) g/dL Albumin (3.5-5.0) g/dL Crossmatch
[2022-05-25 14:38] LABS: Glucose,Whole Blood 154 mg/dL (70-110)
[2022-05-25 15:38] LABS: Glucose,Whole Blood 150 mg/dL (70-110)
[2022-05-25] MEDS: SODIUM CHLORIDE 0.9% 1,000 ML IV SCH (16:23)
[2022-05-25 17:13] LABS: Glucose,Whole Blood 125 mg/dL (70-110)
[2022-05-25] MEDS ORDERED: BUMETANIDE 0.25 MG/ML 10 ML VIAL IV STA (18:34)
[2022-05-25 18:44] LABS: Glucose,Whole Blood 101 mg/dL (70-110)
[2022-05-25 20:02] LABS: Glucose,Whole Blood 198 mg/dL (70-110)
[2022-05-25] MEDS: SENNOSIDES-DOCUSATE SODIUM 1 EACH TAB PO SCH (20:11)
[2022-05-25 20:56] LABS: Glucose,Whole Blood 174 mg/dL (70-110)
[2022-05-25 21:56] LABS: Glucose,Whole Blood 130 mg/dL (70-110)
[2022-05-25 22:56] LABS: Glucose,Whole Blood 108 mg/dL (70-110)
[2022-05-26] MEDS: HYDROcodone/APAP 5-325MG 1 EACH TAB PO PRN ×4 (00:31→20:45)
[2022-05-26] MEDS: HEPARIN SODIUM,PORCINE/PF 5,000 UNIT/0.5 ML SYRINGE SQ SCH ×3 (00:32→17:02)
[2022-05-26] MEDS: IPRATROPIUM-ALBUTEROL 3 ML NEB INHALATION PRN (00:35)
[2022-05-26 00:40] LABS: Glucose,Whole Blood 124 mg/dL (70-110)
[2022-05-26 01:24] LABS: Glucose,Whole Blood 154 mg/dL (70-110)
[2022-05-26 02:06] LABS: Glucose,Whole Blood 129 mg/dL (70-110)
[2022-05-26 02:56] LABS: Glucose,Whole Blood 121 mg/dL (70-110)
[2022-05-26 04:00] LABS: Glucose,Whole Blood 114 mg/dL (70-110)
[2022-05-26 04:08] LABS: MCHC 34.4 g/dL (31.0-37.0); MCV 93.1 fL (80.0-100.0); Platelet Count 132 k/uL (150-450); RBC 3.01 m/uL (3.80-5.40); RDW 15.2 % (11.5-15.5); WBC 10.6 k/uL (3.8-10.6)
[2022-05-26 04:24] LABS: HGB 9.6 gm/dL (11.4-16.0)
[2022-05-26 04:25] LABS: Calcium 8.2 mg/dL (8.4-10.2); Magnesium 1.9 mg/dL (1.6-2.3); Potassium 3.9 mmol/L (3.5-5.1)
[2022-05-26] MEDS: DOPamine DRIP 800 MG in DEXTROSE/WATER 1 250ML.BAG IV SCH (04:34)
[2022-05-26] MEDS: MAGNESIUM SULFATE-D5W PMX 1 GM in DEXTROSE/WATER 1 100ML.BAG IVPB SCH ×2 (04:44→05:44)
[2022-05-26] MEDS ORDERED: POTASSIUM BICARBONATE/CIT AC 20 MEQ TABLET.EFF NG-TUBE SCH (05:00)
[2022-05-26] MEDS: ONDANSETRON 4 MG/2 ML VIAL IVP PRN ×2 (05:44→17:39)
[2022-05-26 06:00] LABS: Glucose,Whole Blood 147 mg/dL (70-110)
--- NOTE | 2022-05-26 06:23 | PN ---
PROGRESS NOTE SUBJECTIVE: Annetta is a 61-year-old lady, who underwent mitral valve replacement for rheumatic heart disease with mitral stenosis, regurgitation with pulmonary hypertension. She developed anemia and hypotension and underwent blood transfusion. Her hemoglobin dropped to 7. She is otherwise doing okay. OBJECTIVE: VITAL SIGNS: Heart rate is 78 beats per minute. Blood pressure is 94/49, respiratory rate is 18. PA pressures have increased compared to before. CHEST: Exam reveals diminished air entry at the bases. HEART: Exam reveals first and second heart sounds. No gallop. No murmur. EXTREMITIES: Exam of extremities reveals 1+ edema. Peripheral pulses are felt. LABORATORY DATA: Labs show a hemoglobin of 7. ASSESSMENT AND PLAN: 1. Chronic rheumatic heart disease with pulmonary hypertension, status post mitral valve replacement. 2. Hypertension. 3. Anemia. PLAN: Continue with incentive spirometry. Continue with supportive care. MMODL / MANISHAN: [id number] /
[2022-05-26] MEDS: FERROUS SULFATE 325 MG TAB PO SCH ×2 (06:49→17:20)
[2022-05-26] MEDS: PANTOPRAZOLE 40 MG TABLET PO SCH ×2 (06:49→17:20)
[2022-05-26] MEDS: ASCORBIC ACID 500 MG TAB PO SCH ×2 (06:49→17:20)
[2022-05-26] MEDS: SYMBICORT 160-4.5 MCG INHALER INHALATION SCH ×2 (06:51→19:55)
[2022-05-26] MEDS: IPRATROPIUM-ALBUTEROL 3 ML NEB INHALATION SCH ×4 (06:51→19:55)
[2022-05-26 06:54] LABS: Glucose,Whole Blood 152 mg/dL (70-110)
--- NOTE | 2022-05-26 07:23 | XR ---
EXAMINATION TYPE: XR chest 1V portable DATE OF EXAM: 05/26/2022 5:34 AM COMPARISON: Chest radiograph from one day prior. TECHNIQUE: XR chest 1V portable Portable AP radiograph of the chest. CLINICAL INDICATION:Female, 61 years old with history of post cardiac surgery; FINDINGS: Lungs/Pleura: Bibasilar atelectasis. No evidence for pneumothorax pleural effusion or focal consolida tion. Pulmonary vascularity: Unremarkable. Heart/mediastinum: Cardiomediastinal silhouette is unremarkable. Post valve repair changes. Left atr ial appendage occlusion device is present. Musculoskeletal: No acute osseous pathology. Midline sternotomy wires are noted. Lines/Tubes: There is a [place]-Celso catheter with tip projecting over the heart. IMPRESSION: Stable exam with basilar atelectasis.
[2022-05-26 08:12] LABS: Glucose,Whole Blood 131 mg/dL (70-110)
[2022-05-26] MEDS: polyethylene glycoL 3350 17 GM POWD.PACK PO SCH (08:24)
[2022-05-26] MEDS: AMIODARONE 200 MG TAB PO SCH ×2 (08:26→20:45)
[2022-05-26] MEDS: CITALOPRAM HYDROBROMIDE 20 MG TAB PO SCH ×2 (08:26→20:45)
[2022-05-26] MEDS: ASPIRIN 325 MG TAB PO SCH (08:26)
[2022-05-26] MEDS: CLOPIDOGREL 75 MG TAB PO SCH (08:26)
[2022-05-26] MEDS: ATORVASTATIN 40 MG TAB PO SCH (08:27)
[2022-05-26] MEDS: METOPROLOL TARTRATE 25 MG TAB PO SCH ×2 (08:27→20:45)
[2022-05-26] MEDS: CALCIUM CARBONATE 500 MG CHEWABLE PO PRN ×2 (08:34→17:38)
[2022-05-26] MEDS: FUROSEMIDE 10 MG/ML 2 ML VIAL IV SCH ×2 (08:34→20:47)
--- NOTE | 2022-05-26 09:00 | P.PN ---
Subjective Progress Note Date: 05/26/22 Principal diagnosis: Severe rheumatic mitral valve stenosis with severe pulmonary hypertension, moderate mitral valve regurgitation, preserved left ventricular systolic function, moderate right ventricular dysfunction, moderate tricuspid valve regurgitation, acute on chronic diastolic heart failure, transaminitis. History of mild nonobstructive coronary artery disease, hypertension, hyperlipidemia, previous tobacco dependence with recent cessation, severe COPD, supraventricular tachycardia, depression, remote history of pneumonia, and family history of coronary artery disease POD #4 chordal preserving mitral valve replacement using a 27 mm Mosaic porcine bioprosthesis, tricuspid valve repair with ring annuloplasty using a 28 mm MC3 ring, exclusion of the left atrial appendage using a 35 mm AtriClip, intraoperative transesophageal echocardiogram and epi-aortic scanning Postoperative acute blood loss anemia, expected given hemodilution and cardiopulmonary bypass pump The patient was seen and examined with morning with Dr. Lerma sitting up in a recliner intensive care unit in no acute distress. She does complain of heartburn but no other pain or shortness of breath. Currently sinus rhythm, was started on dopamine this morning with improvement in blood pressure/CO/CI/urine output. Received 2 units PRBCs yesterday. Right internal jugular [place]/cordis, right brachial arterial line, right pleural chest tubes all remain. Currently on 4 L nasal cannula with oxygen saturation in the mid 90s. Objective - Vital Signs Vital signs: Vital Signs Temp 97.5 F L 05/26/22 08:00 Pulse 83 05/26/22 08:00 Resp 17 05/26/22 08:00 BP 103/44 05/26/22 08:00 Pulse Ox 93 L 05/26/22 08:00 FiO2 50 05/22/22 16:00 Intake & Output 05/25/22 05/26/22 05/26/22 18:59 06:59 18:59 Intake Total 4087.756 4781.297 9.191 Output Total 510 680 Balance 810.554 461.297 9.191 Weight 89.2 kg Intake: IV 558 858 0.9 320 300 CO/CI 130 250 Magnesium Sulfate-D5w Pmx 200 1 gm In Dextrose/Water 1 100ml.bag @ 100 mls/hr IVPB Q1H [facility] Rx#: [id number] pressure bag 108 108 Intake, IV Titration 142.554 33.297 9.191 Amount Insulin Regular 100 unit 42.554 33.297 9.191 In Sodium Chloride 0.9% 100 ml @ Per Protocol IV .Q0M [facility] Rx#:[id number] Milrinone-D5w Pmx 20 mg 100 In Dextrose/Water 1 100ml .bag @ 0.2 MCG/KG/MIN 4. 974 mls/hr IV .Q20H7M [facility] Rx#:[id number] Tube Feeding 250 Blood Product 620 Rc As-1 Unit 310 [id number] Rc As-1 Unit 310 [id number] Output: Chest Tube Drainage 230 90 Right Pleural 230 90 Urine 280 590 Other: Voiding Method Indwelling Catheter Indwelling Catheter ABP, PAP, CO, CI - Last Documented Arterial Blood Pressure 139/57 Pulmonary Artery Pressure 49/24 Cardiac Output 6.2 Cardiac Index 3.4 - Exam CONSTITUTIONAL: Appears uncomfortable, cooperative, mild distress RESPIRATORY: Lungs sounds diminished bilaterally. Respirations even, nonlabored. Currently on 4 L nasal cannula with oxygen saturation 94%. Able to achieve 750-1000 mL on incentive spirometry. Strong nonproductive cough. CARDIOVASCULAR: S1, S2 present. Regular rate and rhythm, sinus rhythm on telemetry. Sternum stable. Palpable peripheral pulses bilaterally. Trace generalized edema present. No calf pain or tenderness noted. Heart hugger in place with patient demonstrating appropriate use. Antiembolism stockings, SCDs present. GASTROINTESTINAL: Abdomen soft, nontender, slightly distended. Tympanic to percussion. Active bowel sounds present 4 quadrants. Tolerating diet. Positive flatus GENITOURINARY: Crespo present draining clear, yellow urine. Output overnight down to 10 mL per hour then up to 70 ml per hour after dopamine, 870 mL in the last 24 hours INTEGUMENTARY: Skin is warm and dry with evidence of good perfusion. Anterior chest incision well approximated and covered with dry intact dressing NEUROLOGIC: Cranial nerves II through XII intact MUSKULOSKELETAL: Able to move all extremities, strength equal bilaterally PSYCHIATRIC: Alert and oriented to person place and time, appropriate affect, intact judgment and insight INVASIVE LINES AND TUBES: Right pleural chest tube present and connected to wall suction, no air leak present, 50 mL serosanguineous drainage overnight, 200 mL in the last 24 hours. A/V epicardial pacemaker wires present, grounded. Right internal jugular [place]/Cordis, right brachial arterial line present. Last CO/CI 6.2/3.4, PA 44/18, CVP 13 - Allied health notes Allied health notes reviewed: nursing - Labs CBC & Chem 7: 05/26/22 04:00 05/26/22 04:00 Labs: Abnormal Lab Results - Last 24 Hours (Table) 05/25/22 05/25/22 05/25/22 Range/Units 09:04 09:38 09:56 RBC (3.80-5.40) m/uL Hgb (11.4-16.0) gm/dL Hct (34.0-46.0) % Plt Count (150-450) k/uL Sodium (137-145) mmol/L BUN (7-17) mg/dL Creatinine (0.52-1.04) mg/dL Glucose (74-99) mg/dL POC Glucose (mg/dL) 153 H 139 H (70-110) mg/dL Calcium (8.4-10.2) mg/dL Crossmatch See Detail 05/25/22 05/25/22 05/25/22 Range/Units 11:54 13:24 14:36 RBC (3.80-5.40) m/uL Hgb (11.4-16.0) gm/dL Hct (34.0-46.0) % Plt Count (150-450) k/uL Sodium (137-145) mmol/L BUN (7-17) mg/dL Creatinine (0.52-1.04) mg/dL Glucose (74-99) mg/dL POC Glucose (mg/dL) 118 H 156 H 154 H (70-110) mg/dL Calcium (8.4-10.2) mg/dL Crossmatch 05/25/22 05/25/22 05/25/22 Range/Units 15:37 17:03 20:01 RBC (3.80-5.40) m/uL Hgb (11.4-16.0) gm/dL Hct (34.0-46.0) % Plt Count (150-450) k/uL Sodium (137-145) mmol/L BUN (7-17) mg/dL Creatinine (0.52-1.04) mg/dL Glucose (74-99) mg/dL POC Glucose (mg/dL) 150 H 125 H 198 H (70-110) mg/dL Calcium (8.4-10.2) mg/dL Crossmatch 05/25/22 05/25/22 05/26/22 Range/Units 20:55 21:54 00:39 RBC (3.80-5.40) m/uL Hgb (11.4-16.0) gm/dL Hct (34.0-46.0) % Plt Count (150-450) k/uL Sodium (137-145) mmol/L BUN (7-17) mg/dL Creatinine (0.52-1.04) mg/dL Glucose (74-99) mg/dL POC Glucose (mg/dL) 174 H 130 H 124 H (70-110) mg/dL Calcium (8.4-10.2) mg/dL Crossmatch 05/26/22 05/26/22 05/26/22 Range/Units 01:22 02:05 02:55 RBC (3.80-5.40) m/uL Hgb (11.4-16.0) gm/dL Hct (34.0-46.0) % Plt Count (150-450) k/uL Sodium (137-145) mmol/L BUN (7-17) mg/dL Creatinine (0.52-1.04) mg/dL Glucose (74-99) mg/dL POC Glucose (mg/dL) 154 H 129 H 121 H (70-110) mg/dL Calcium (8.4-10.2) mg/dL Crossmatch 05/26/22 05/26/22 05/26/22 Range/Units 03:59 04:00 04:00 RBC 3.01 L (3.80-5.40) m/uL Hgb 9.6 L D (11.4-16.0) gm/dL Hct 28.0 L (34.0-46.0) % Plt Count 132 L (150-450) k/uL Sodium 131 L (137-145) mmol/L BUN 31 H (7-17) mg/dL Creatinine 1.20 H (0.52-1.04) mg/dL Glucose 101 H (74-99) mg/dL POC Glucose (mg/dL) 114 H (70-110) mg/dL Calcium 8.2 L (8.4-10.2) mg/dL Crossmatch 05/26/22 05/26/22 05/26/22 Range/Units 05:59 06:53 08:10 RBC (3.80-5.40) m/uL Hgb (11.4-16.0) gm/dL Hct (34.0-46.0) % Plt Count (150-450) k/uL Sodium (137-145) mmol/L BUN (7-17) mg/dL Creatinine (0.52-1.04) mg/dL Glucose (74-99) mg/dL POC Glucose (mg/dL) 147 H 152 H 131 H (70-110) mg/dL Calcium (8.4-10.2) mg/dL Crossmatch - Imaging and Cardiology Chest x-ray: report reviewed, image reviewed Assessment and Plan Assessment: 1. 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 Preserved left ventricular systolic function, moderate right ventricular dysfunction, EF 55-60% 3. Moderate tricuspid valve regurgitation, status post tricuspid valve repair 4. Acute on chronic diastolic heart failure 5. Transaminitis 6. History of mild nonobstructive coronary artery disease 7. Hypertension 8. Hyperlipidemia, treated, cholesterol 196, LDL 99, triglycerides 254 9. Previous tobacco dependence with recent cessation 10. Severe COPD, preoperative FEV1 42% of predicted 11. History of supraventricular tachycardia 12. Depression 13. Remote history of pneumonia 14. Family history of coronary artery disease 15. Postoperative acute blood loss anemia, expected Plan: 1. Continue to maximize medical therapy with aspirin, statin, Plavix, beta vince. 2. Continue amiodarone for A. fib prophylaxis, will taper weekly 3. Will wean Primacor as tolerated, keep dopamine and wean as tolerated 4. Wean O2 as tolerated. Encourage incentive spirometry 10 times every hour while awake. Bronchodilators per pulmonology 5. Increase activity as tolerated. PT/OT/cardiac rehab consulted 6. Will monitor daily labs and x-rays. Electrolyte replacement per protocol. Will start lasix 20 mg IVP BID 7. GI/DVT prophylaxis. Will increase protonix to BID, add tums PRN 8. Pain control with current medication regimen 9. Insulin management per internal medicine service. Preoperative hemoglobin A1c 6.4% 10. Discontinue [place], continue Cordis, may discontinue arterial line 11. Discontinue right pleural chest tubes 12. Discontinue Crespo catheter, may bladder scan and straight cath for >300 mL 13. Strict accurate intake and output. Daily weights 14. More recommendations to follow
[2022-05-26 09:31] LABS: Glucose,Whole Blood 149 mg/dL (70-110)
[2022-05-26] MEDS: METOCLOPRAMIDE 5 MG/ML 2 ML VIAL IVP PRN (10:58)
[2022-05-26] MEDS ORDERED: DEXTROSE 50% SYRINGE 50 ML IVP PRN ×2 (11:02)
--- NOTE | 2022-05-26 11:53 | PN ---
PROGRESS NOTE SUBJECTIVE: Annetta is a 61-year-old lady with rheumatic heart disease and underwent mitral valve replacement. Her urine output was marginal. The cardiac index was somewhat low. PA pressures have improved compared to yesterday. She does not have any shortness of breath, remains in sinus rhythm, and stable hemodynamically. On exam, heart rate is 83 beats per minute, blood pressure is 103/44, respiratory rate is 18, PA systolic is 49 mm with a diastolic of 24. Cardiac index is 3.4. MEDICATIONS: The patient is currently on: 1. Amiodarone. 2. Lipitor. 3. Aspirin. 4. Plavix 75 mg daily. 5. Lasix 20 mg b.i.d. 6. Lopressor 25 b.i.d. along with milrinone. OBJECTIVE: GENERAL: Comfortable at rest. VITAL SIGNS: Stable. CHEST: Reveals diminished air entry bilaterally. HEART: Reveals first and second heart sounds. No gallop. EXTREMITIES: Did not reveal any edema. IMAGING: Her chest x-ray does not show any pulmonary congestion. There are mild atelectatic changes. ASSESSMENT: Rheumatic heart disease with mitral stenosis and regurgitation, status post mitral valve replacement. PLAN: The patient is making slow, but steady recovery. She will continue with current medications. Continue to work on incentive spirometry. MMODL / IJN: [id number] /
[2022-05-26 12:18] LABS: Glucose,Whole Blood 169 mg/dL (70-110)
--- NOTE | 2022-05-26 12:52 | P.PN ---
Subjective Progress Note Date: 05/26/22 Patient is a 61-year-old female with recently diagnosed rheumatic mitral valve disease with severe stenosis and regurg, severe pulmonary hypertension, and HTN who presented to the emergency room with complaints of shortness of breath, lower extremity edema, and abdominal distention. The patient was recently admitted to the hospital from 04/25-04/27 for similar complaints, at which time she was diagnosed with the above mitral valve disease. The patient was advised to follow-up as an outpatient for an elective mitral valve repair/replacement with cardiothoracic surgery. Upon arrival at the emergency room vital signs were within normal limits. Chest CTA revealed no evidence of PE with a right pleural effusion. EKG revealed sinus tachycardia with PVCs at 102 bpm with no notable ST/T-wave changes noted as reviewed by me. Laboratory evaluation was remarkable for troponin of less than 0.012, proBNP 3870, AST 132, ALT 158, and alk phos 232 with a total bilirubin 1.4. She was admitted for acute exacerbation of right- sided heart failure in the setting of severe mitral valve disease. She was started on IV diuresis and cardiology was consulted. Cardiovascular surgery was also consulted. Patient underwent open heart surgery with mitral valve replacement, tricuspid valve repair, exclusion of the left atrial appendage with a 35mm atrial clip on 05/22. She was extubated on 05/22. Patient was seen and examined. No acute events overnight. She is POD 4. 2 units PRBC yesterday, Hg is 9.6 today. She reports abdominal bloating, nausea but no vomiting. Mediastinal and pleural chest tubes removed. No bowel movement since surgery but passing gas. General: nontoxic, no distress, appears at stated age Derm: warm, dry Head: atraumatic, normocephalic, symmetric Eyes: EOMI, no lid lag, anicteric sclera Mouth: no lip lesion, mucus membranes moist Cardiovascular: S1S2 reg, with murmur Lungs: Decreased BS bilateral, no rhonchi, no rales , no accessory muscle use Abd: Slightly distended, sluggish bowel sounds, non tender to palpation Ext: no gross muscle atrophy, trace edema, no contractures Neuro: no focal neuro deficits Psych: Alert, oriented, appropriate affect #Acute blood loss anemia -Expected result of surgery -s/p 2 unit PRBC -Continue to monitor #Acute kidney injury #Hyponatremia, probably hypervolemic -Started on Lasix 20 mg IV BID -Avoid nephrotoxins -Daily BMP #Abdominal bloating #Constipation -KUB -Zofran and Reglan PRN for N/V -Continue with bowel regimen #Acute exacerbation of right-sided heart failure, cor pulmonale in the setting of severe mitral valve disease #Severe mitral regurgitation with moderate to severe stenosis #Severe pulmonary hypertension #Nonobstructive coronary artery disease #Hypertension -Cardiothoracic surgery on board -Status post mitral valve replacement, tricuspid valve repair, exclusion of the left atrial appendage with a 35mm atrial clip 05/22 -Aspirin, Plavix, statin, beta vince -On Amiodarone for AFib prophylaxis -On Milrinone due to low cardiac index -Strict I's and O's, daily weights #Transaminitis secondary to hepatic congestion -Improving with diuresis -Continue to monitor #Leukocytosis -Likely reactive -Monitor fever profile with daily CBC Resolved: Acute hypoxic respiratory failure Objective - Vital Signs Vital signs: Vital Signs Temp 97.5 F L 05/26/22 08:00 Pulse 86 05/26/22 11:11 Resp 15 05/26/22 11:00 BP 124/76 05/26/22 11:00 Pulse Ox 93 L 05/26/22 11:00 FiO2 50 05/22/22 16:00 Intake & Output 05/25/22 05/26/22 05/26/22 18:59 06:59 18:59 Intake Total 0975.083 4211.297 155.191 Output Total 510 680 675 Balance 810.554 461.297 -519.809 Weight 89.2 kg Intake: IV 558 858 146 0.9 320 300 100 CO/CI 130 250 10 Magnesium Sulfate-D5w Pmx 200 1 gm In Dextrose/Water 1 100ml.bag @ 100 mls/hr IVPB Q1H [facility] Rx#: [id number] pressure bag 108 108 36 Intake, IV Titration 142.554 33.297 9.191 Amount Insulin Regular 100 unit 42.554 33.297 9.191 In Sodium Chloride 0.9% 100 ml @ Per Protocol IV .Q0M [facility] Rx#:[id number] Milrinone-D5w Pmx 20 mg 100 In Dextrose/Water 1 100ml .bag @ 0.2 MCG/KG/MIN 4. 974 mls/hr IV .Q20H7M [facility] Rx#:[id number] Tube Feeding 250 Blood Product 620 Rc As-1 Unit 310 [id number] Rc As-1 Unit 310 [id number] Output: Chest Tube Drainage 230 90 Right Pleural 230 90 Urine 280 590 675 Other: Voiding Method Indwelling Catheter Indwelling Catheter ABP, PAP, CO, CI - Last Documented Arterial Blood Pressure 139/58 Pulmonary Artery Pressure 54/19 Cardiac Output 4.2 Cardiac Index 2.3 - Labs CBC & Chem 7: 05/26/22 04:00 05/26/22 04:00 Labs: Abnormal Lab Results - Last 24 Hours (Table) 05/25/22 05/25/22 05/25/22 Range/Units 09:38 13:24 14:36 RBC (3.80-5.40) m/uL Hgb (11.4-16.0) gm/dL Hct (34.0-46.0) % Plt Count (150-450) k/uL Sodium (137-145) mmol/L BUN (7-17) mg/dL Creatinine (0.52-1.04) mg/dL Glucose (74-99) mg/dL POC Glucose (mg/dL) 156 H 154 H (70-110) mg/dL Calcium (8.4-10.2) mg/dL Crossmatch See Detail 05/25/22 05/25/22 05/25/22 Range/Units 15:37 17:03 20:01 RBC (3.80-5.40) m/uL Hgb (11.4-16.0) gm/dL Hct (34.0-46.0) % Plt Count (150-450) k/uL Sodium (137-145) mmol/L BUN (7-17) mg/dL Creatinine (0.52-1.04) mg/dL Glucose (74-99) mg/dL POC Glucose (mg/dL) 150 H 125 H 198 H (70-110) mg/dL Calcium (8.4-10.2) mg/dL Crossmatch 05/25/22 05/25/22 05/26/22 Range/Units 20:55 21:54 00:39 RBC (3.80-5.40) m/uL Hgb (11.4-16.0) gm/dL Hct (34.0-46.0) % Plt Count (150-450) k/uL Sodium (137-145) mmol/L BUN (7-17) mg/dL Creatinine (0.52-1.04) mg/dL Glucose (74-99) mg/dL POC Glucose (mg/dL) 174 H 130 H 124 H (70-110) mg/dL Calcium (8.4-10.2) mg/dL Crossmatch 05/26/22 05/26/22 05/26/22 Range/Units 01:22 02:05 02:55 RBC (3.80-5.40) m/uL Hgb (11.4-16.0) gm/dL Hct (34.0-46.0) % Plt Count (150-450) k/uL Sodium (137-145) mmol/L BUN (7-17) mg/dL Creatinine (0.52-1.04) mg/dL Glucose (74-99) mg/dL POC Glucose (mg/dL) 154 H 129 H 121 H (70-110) mg/dL Calcium (8.4-10.2) mg/dL Crossmatch 05/26/22 05/26/22 05/26/22 Range/Units 03:59 04:00 04:00 RBC 3.01 L (3.80-5.40) m/uL Hgb 9.6 L D (11.4-16.0) gm/dL Hct 28.0 L (34.0-46.0) % Plt Count 132 L (150-450) k/uL Sodium 131 L (137-145) mmol/L BUN 31 H (7-17) mg/dL Creatinine 1.20 H (0.52-1.04) mg/dL Glucose 101 H (74-99) mg/dL POC Glucose (mg/dL) 114 H (70-110) mg/dL Calcium 8.2 L (8.4-10.2) mg/dL Crossmatch 05/26/22 05/26/22 05/26/22 Range/Units 05:59 06:53 08:10 RBC (3.80-5.40) m/uL Hgb (11.4-16.0) gm/dL Hct (34.0-46.0) % Plt Count (150-450) k/uL Sodium (137-145) mmol/L BUN (7-17) mg/dL Creatinine (0.52-1.04) mg/dL Glucose (74-99) mg/dL POC Glucose (mg/dL) 147 H 152 H 131 H (70-110) mg/dL Calcium (8.4-10.2) mg/dL Crossmatch 05/26/22 05/26/22 Range/Units 09:29 12:15 RBC (3.80-5.40) m/uL Hgb (11.4-16.0) gm/dL Hct (34.0-46.0) % Plt Count (150-450) k/uL Sodium (137-145) mmol/L BUN (7-17) mg/dL Creatinine (0.52-1.04) mg/dL Glucose (74-99) mg/dL POC Glucose (mg/dL) 149 H 169 H (70-110) mg/dL Calcium (8.4-10.2) mg/dL Crossmatch
[2022-05-26 13:14] LABS: Glucose,Whole Blood 139 mg/dL (70-110)
[2022-05-26] MEDS: INSULIN ASPART (NovoLOG) 100 UNIT/ML VIAL SQ SCH ×3 (15:32→20:46)
[2022-05-26] MEDS ORDERED: MILRINONE-D5W PMX 20 MG in DEXTROSE/WATER 1 100ML.BAG IV SCH (15:45)
[2022-05-26 16:55] LABS: Glucose,Whole Blood 137 mg/dL (70-110)
[2022-05-26] MEDS: MILRINONE-D5W PMX 20 MG in DEXTROSE/WATER 1 100ML.BAG IV SCH (17:03)
[2022-05-26] MEDS: SODIUM CHLORIDE 0.9% 1,000 ML IV SCH (17:03)
--- NOTE | 2022-05-26 20:23 | XR ---
EXAMINATION TYPE: XR KUB portable DATE OF EXAM: 05/26/2022 COMPARISON: NONE HISTORY: Abdominal bloating TECHNIQUE: Single view FINDINGS: There is no sign of intestinal obstruction or pneumoperitoneum. Fecal pattern is normal wit h no evidence of a mass. There are no pathologic calcifications over the kidneys. Bony structures are intact. IMPRESSION: Nonacute abdomen.
[2022-05-26 20:39] LABS: Glucose,Whole Blood 169 mg/dL (70-110)
[2022-05-26] MEDS: SENNOSIDES-DOCUSATE SODIUM 1 EACH TAB PO SCH (20:45)
[2022-05-27] MEDS: HEPARIN SODIUM,PORCINE/PF 5,000 UNIT/0.5 ML SYRINGE SQ SCH ×4 (00:01→23:07)
[2022-05-27] MEDS: HYDROcodone/APAP 5-325MG 1 EACH TAB PO PRN ×3 (02:29→14:21)
[2022-05-27 05:25] LABS: HCT 28.5 % (34.0-46.0); HGB 9.8 gm/dL (11.4-16.0); MCH 31.9 pg (25.0-35.0); MCHC 34.2 g/dL (31.0-37.0); MCV 93.4 fL (80.0-100.0); Mean Platelet Volume 8.9; Platelet Count 169 k/uL (150-450); RBC 3.05 m/uL (3.80-5.40); RDW 15.6 % (11.5-15.5); WBC 8.7 k/uL (3.8-10.6)
[2022-05-27 05:32] LABS: ALT 76 U/L (4-34); AST 101 U/L (14-36); African American GFR (CKD) >90 (>60 ml/min/1.73 sqM); Albumin 3.2 g/dL (3.5-5.0); Alkaline Phosphatase 186 U/L (38-126); Anion Gap 4 mmol/L; Blood Urea Nitrogen 17 mg/dL (7-17); Calcium 8.3 mg/dL (8.4-10.2); Carbon Dioxide 27 mmol/L (22-30); Chloride 101 mmol/L (98-107); Glucose 107 mg/dL (74-99); Magnesium 1.9 mg/dL (1.6-2.3); Non-African American GFR(CKD) >90 (>60 ml/min/1.73 sqM); Sodium 132 mmol/L (137-145); Total Bilirubin 1.2 mg/dL (0.2-1.3); Total Protein 5.5 g/dL (6.3-8.2)
[2022-05-27] MEDS: IPRATROPIUM-ALBUTEROL 3 ML NEB INHALATION PRN (05:43)
[2022-05-27] MEDS: INSULIN ASPART (NovoLOG) 100 UNIT/ML VIAL SQ SCH ×4 (05:46→20:56)
[2022-05-27] MEDS: PANTOPRAZOLE 40 MG TABLET PO SCH ×2 (05:49→17:13)
[2022-05-27] MEDS: FERROUS SULFATE 325 MG TAB PO SCH (05:49)
[2022-05-27] MEDS: ASCORBIC ACID 500 MG TAB PO SCH ×2 (05:49→17:12)
[2022-05-27] MEDS: MAGNESIUM SULFATE-D5W PMX 1 GM in DEXTROSE/WATER 1 100ML.BAG IVPB SCH ×2 (05:53→08:27)
--- NOTE | 2022-05-27 07:48 | XR ---
EXAMINATION TYPE: XR chest 1V portable DATE OF EXAM: 05/27/2022 HISTORY: Shortness of breath. COMPARISON: 05/26/2022 TECHNIQUE: Single view of the chest is submitted. FINDINGS: Small effusions persist. Postoperative sternotomy changes are noted. No evidence for pneumothorax or focal consolidation. The heart is stable. Hilar and mediastinal structures are within normal limits. Degenerative changes are seen of the dorsal spine. IMPRESSION: 1. Stable postoperative changes with small effusions noted left greater than right.
[2022-05-27] MEDS: IPRATROPIUM-ALBUTEROL 3 ML NEB INHALATION SCH ×4 (08:01→19:59)
[2022-05-27] MEDS: SYMBICORT 160-4.5 MCG INHALER INHALATION SCH ×2 (08:01→19:59)
--- NOTE | 2022-05-27 08:17 | P.PN ---
Subjective Progress Note Date: 05/27/22 Principal diagnosis: Valvular heart disease The patient is a pleasant 61-year-old female patient who is known to have valvular heart disease who underwent mitral valve replacement and tricuspid valve repair. She's also does have pulmonary hypertension likely to be the unit show group to pulmonary hypertension secondary to valvular heart disease and left side disease. She was evaluated this morning. She remains a stable from the cardiovascular standpoint of view. She is on dual antiplatelet therapy which is an intermediate intensity statin. Chest x-ray was reviewed this morning and seems to be stable. From a cardiovascular standpoint of view, we'll continue the curr ent medical regimen and continue monitor the kidney function and electrolytes and follow-up with the patient Objective - Vital Signs Vital signs: Vital Signs Temp 98.5 F 05/27/22 04:00 Pulse 85 05/27/22 08:12 Resp 31 H 05/27/22 07:00 BP 121/74 05/27/22 07:00 Pulse Ox 94 L 05/27/22 07:00 FiO2 50 05/22/22 16:00 Intake & Output 05/26/22 05/27/22 05/27/22 18:59 06:59 18:59 Intake Total 367.191 270 Output Total 1335 1000 Balance -967.809 -730 Weight 88.5 kg Intake: IV 358 270 0.9 270 240 CO/CI 10 pressure bag 78 30 Intake, IV Titration 9.191 Amount Insulin Regular 100 unit 9.191 In Sodium Chloride 0.9% 100 ml @ Per Protocol IV .Q0M [facility] Rx#:[id number] Output: Urine 1335 1000 Other: Voiding Method Indwelling Catheter Bedside Commode # Voids 0 ABP, PAP, CO, CI - Last Documented Arterial Blood Pressure 104/53 Pulmonary Artery Pressure 50/20 Cardiac Output 3.9 Cardiac Index 2.1 - Constitutional General appearance: Present: no acute distress - Labs CBC & Chem 7: 05/27/22 05:07 05/27/22 05:07 Labs: Abnormal Lab Results - Last 24 Hours (Table) 05/26/22 05/26/22 05/26/22 Range/Units 09:29 12:15 13:12 RBC (3.80-5.40) m/uL Hgb (11.4-16.0) gm/dL Hct (34.0-46.0) % RDW (11.5-15.5) % Sodium (137-145) mmol/L Glucose (74-99) mg/dL POC Glucose (mg/dL) 149 H 169 H 139 H (70-110) mg/dL Calcium (8.4-10.2) mg/dL AST (14-36) U/L ALT (4-34) U/L Alkaline Phosphatase (38-126) U/L Total Protein (6.3-8.2) g/dL Albumin (3.5-5.0) g/dL 05/26/22 05/26/22 05/27/22 Range/Units 16:53 20:38 05:07 RBC 3.05 L (3.80-5.40) m/uL Hgb 9.8 L (11.4-16.0) gm/dL Hct 28.5 L (34.0-46.0) % RDW 15.6 H (11.5-15.5) % Sodium (137-145) mmol/L Glucose (74-99) mg/dL POC Glucose (mg/dL) 137 H 169 H (70-110) mg/dL Calcium (8.4-10.2) mg/dL AST (14-36) U/L ALT (4-34) U/L Alkaline Phosphatase (38-126) U/L Total Protein (6.3-8.2) g/dL Albumin (3.5-5.0) g/dL 05/27/22 Range/Units 05:07 RBC (3.80-5.40) m/uL Hgb (11.4-16.0) gm/dL Hct (34.0-46.0) % RDW (11.5-15.5) % Sodium 132 L (137-145) mmol/L Glucose 107 H (74-99) mg/dL POC Glucose (mg/dL) (70-110) mg/dL Calcium 8.3 L (8.4-10.2) mg/dL AST 101 H (14-36) U/L ALT 76 H (4-34) U/L Alkaline Phosphatase 186 H (38-126) U/L Total Protein 5.5 L (6.3-8.2) g/dL Albumin 3.2 L (3.5-5.0) g/dL Assessment and Plan Assessment: Assessment Valvular heart disease Status post mitral valve replacement and tricuspid valve repair Multiple comorbid conditions Plan Continue the current medical regimen Continue dual antiplatelet therapy Continue intermediate intensity statin The chest x-ray was reviewed this morning and seems to be stable Follow-up with the patient
[2022-05-27] MEDS: ASPIRIN 325 MG TAB PO SCH (08:25)
[2022-05-27] MEDS: CLOPIDOGREL 75 MG TAB PO SCH (08:25)
[2022-05-27] MEDS: AMIODARONE 200 MG TAB PO SCH ×2 (08:25→20:55)
[2022-05-27] MEDS: ATORVASTATIN 40 MG TAB PO SCH (08:25)
[2022-05-27] MEDS: METOPROLOL TARTRATE 25 MG TAB PO SCH ×2 (08:26→20:55)
[2022-05-27] MEDS: CITALOPRAM HYDROBROMIDE 20 MG TAB PO SCH ×2 (08:26→20:54)
[2022-05-27] MEDS: DOPamine DRIP 800 MG in DEXTROSE/WATER 1 250ML.BAG IV SCH (08:27)
[2022-05-27] MEDS: ONDANSETRON 4 MG/2 ML VIAL IVP PRN ×2 (08:33→23:07)
[2022-05-27] MEDS: polyethylene glycoL 3350 17 GM POWD.PACK PO SCH (08:39)
--- NOTE | 2022-05-27 09:01 | P.PN ---
Subjective Progress Note Date: 05/27/22 Principal diagnosis: Severe rheumatic mitral valve stenosis with severe pulmonary hypertension, moderate mitral valve regurgitation, preserved left ventricular systolic function, moderate right ventricular dysfunction, moderate tricuspid valve regurgitation, acute on chronic diastolic heart failure, transaminitis. History of mild nonobstructive coronary artery disease, hypertension, hyperlipidemia, previous tobacco dependence with recent cessation, severe COPD, supraventricular tachycardia, depression, remote history of pneumonia, and family history of coronary artery disease POD #5 chordal preserving mitral valve replacement using a 27 mm Mosaic porcine bioprosthesis, tricuspid valve repair with ring annuloplasty using a 28 mm MC3 ring, exclusion of the left atrial appendage using a 35 mm AtriClip, intraoperative transesophageal echocardiogram and epi-aortic scanning Postoperative acute blood loss anemia, expected given hemodilution and cardiopulmonary bypass pump The patient was seen and examined with morning sitting up in a recliner intensive care unit in no acute distress. She does complain of heartburn (better than yesterday which she states she did have prior to coming to the hospital) but no other pain or shortness of breath. Currently sinus rhythm, continues on low-dose dopamine this morning. Right internal jugular cordis remains present. Currently on 2 L nasal cannula with oxygen saturation in the mid 90s. Objective - Vital Signs Vital signs: Vital Signs Temp 98.2 F 05/27/22 08:00 Pulse 85 05/27/22 08:12 Resp 14 05/27/22 08:00 BP 115/60 05/27/22 08:00 Pulse Ox 90 L 05/27/22 08:00 FiO2 50 05/22/22 16:00 Intake & Output 05/26/22 05/27/22 05/27/22 18:59 06:59 18:59 Intake Total 367.191 270 20 Output Total 1335 1000 125 Balance -967.809 -730 -105 Weight 88.5 kg Intake: IV 358 270 20 0.9 270 240 20 CO/CI 10 pressure bag 78 30 Intake, IV Titration 9.191 Amount Insulin Regular 100 unit 9.191 In Sodium Chloride 0.9% 100 ml @ Per Protocol IV .Q0M [facility] Rx#:[id number] Output: Urine 1335 1000 125 Other: Voiding Method Indwelling Catheter Bedside Commode # Voids 0 ABP, PAP, CO, CI - Last Documented Arterial Blood Pressure 104/53 Pulmonary Artery Pressure 50/20 Cardiac Output 3.9 Cardiac Index 2.1 - Exam CONSTITUTIONAL: Appears comfortable, cooperative, no distress RESPIRATORY: Lungs sounds diminished bilaterally. Respirations even, nonlabored. Currently on 2 L nasal cannula with oxygen saturation 94%. Able to achieve 750-1000 mL on incentive spirometry. Strong nonproductive cough. CARDIOVASCULAR: S1, S2 present. Regular rate and rhythm, sinus rhythm on telemetry. Sternum stable. Palpable peripheral pulses bilaterally. Trace generalized edema present. No calf pain or tenderness noted. Heart hugger in place with patient demonstrating appropriate use. Antiembolism stockings, SCDs present. GASTROINTESTINAL: Abdomen soft, nontender, slightly distended. Tympanic to percussion. Active bowel sounds present 4 quadrants. Tolerating diet. Positive flatus GENITOURINARY: C[place]o discontinued yesterday, continues to void clear, yellow urine. Output 2335 mL in the last 24 hours INTEGUMENTARY: Skin is warm and dry with evidence of good perfusion. Anterior chest incision well approximated and covered with dry intact dressing NEUROLOGIC: Cranial nerves II through XII intact MUSKULOSKELETAL: Able to move all extremities, strength equal bilaterally PSYCHIATRIC: Alert and oriented to person place and time, appropriate affect, intact judgment and insight INVASIVE LINES AND TUBES: A/V epicardial pacemaker wires present, grounded. Right internal jugular cordis present. Last CVP 20 - Allied health notes Allied health notes reviewed: nursing - Labs CBC & Chem 7: 05/27/22 05:07 05/27/22 05:07 Labs: Abnormal Lab Results - Last 24 Hours (Table) 05/26/22 05/26/22 05/26/22 Range/Units 09:29 12:15 13:12 RBC (3.80-5.40) m/uL Hgb (11.4-16.0) gm/dL Hct (34.0-46.0) % RDW (11.5-15.5) % Sodium (137-145) mmol/L Glucose (74-99) mg/dL POC Glucose (mg/dL) 149 H 169 H 139 H (70-110) mg/dL Calcium (8.4-10.2) mg/dL AST (14-36) U/L ALT (4-34) U/L Alkaline Phosphatase (38-126) U/L Total Protein (6.3-8.2) g/dL Albumin (3.5-5.0) g/dL 05/26/22 05/26/22 05/27/22 Range/Units 16:53 20:38 05:07 RBC 3.05 L (3.80-5.40) m/uL Hgb 9.8 L (11.4-16.0) gm/dL Hct 28.5 L (34.0-46.0) % RDW 15.6 H (11.5-15.5) % Sodium (137-145) mmol/L Glucose (74-99) mg/dL POC Glucose (mg/dL) 137 H 169 H (70-110) mg/dL Calcium (8.4-10.2) mg/dL AST (14-36) U/L ALT (4-34) U/L Alkaline Phosphatase (38-126) U/L Total Protein (6.3-8.2) g/dL Albumin (3.5-5.0) g/dL 05/27/22 Range/Units 05:07 RBC (3.80-5.40) m/uL Hgb (11.4-16.0) gm/dL Hct (34.0-46.0) % RDW (11.5-15.5) % Sodium 132 L (137-145) mmol/L Glucose 107 H (74-99) mg/dL POC Glucose (mg/dL) (70-110) mg/dL Calcium 8.3 L (8.4-10.2) mg/dL AST 101 H (14-36) U/L ALT 76 H (4-34) U/L Alkaline Phosphatase 186 H (38-126) U/L Total Protein 5.5 L (6.3-8.2) g/dL Albumin 3.2 L (3.5-5.0) g/dL - Imaging and Cardiology Chest x-ray: report reviewed, image reviewed Assessment and Plan Assessment: 1. 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 Preserved left ventricular systolic function, moderate right ventricular dysfunction, EF 55-60% 3. Moderate tricuspid valve regurgitation, status post tricuspid valve repair 4. Acute on chronic diastolic heart failure 5. Transaminitis 6. History of mild nonobstructive coronary artery disease 7. Hypertension 8. Hyperlipidemia, treated, cholesterol 196, LDL 99, triglycerides 254 9. Previous tobacco dependence with recent cessation 10. Severe COPD, preoperative FEV1 42% of predicted 11. History of supraventricular tachycardia 12. Depression 13. Remote history of pneumonia 14. Family history of coronary artery disease 15. Postoperative acute blood loss anemia, expected Plan: 1. Continue to maximize medical therapy with aspirin, statin, Plavix, beta vince. 2. Continue amiodarone for A. fib prophylaxis, will taper weekly 3. Will discontinue Primacor, wean and stop dopamine 4. Wean O2 as tolerated. Encourage incentive spirometry 10 times every hour while awake. Bronchodilators per pulmonology 5. Increase activity as tolerated. PT/OT/cardiac rehab following 6. Will monitor daily labs and x-rays. Electrolyte replacement per protocol. Continue lasix 20 mg IVP BID 7. GI/DVT prophylaxis. Continue protonix to BID, tums PRN 8. Pain control with current medication regimen 9. Insulin management per internal medicine service. Preoperative hemoglobin A1c 6.4% 10. Discontinue Cordis 11. Strict accurate intake and output. Daily weights. Suppository to be given, iron stopped 12. Likely will place transfer orders for 3 S. cardiac stepdown unit later today, may transfer when bed available 13. Discharge planning in progress. Anticipate discharge to home with home care in 48-72 hours 14. More recommendations to follow
[2022-05-27] MEDS: CALCIUM CARBONATE 500 MG CHEWABLE PO PRN ×2 (11:08→17:21)
--- NOTE | 2022-05-27 11:08 | P.PN ---
Subjective Progress Note Date: 05/27/22 Principal diagnosis: ICU management. Reevaluated today on 05/23/22, patient is now postoperative day #1chordal preserving mitral valve replacement using a 27 mm Mosaic porcine bioprosthesis, tricuspid valve repair with ring annuloplasty using a 28 mm MC3 ring, exclusion of the left atrial appendage using a 35 mm AtriClip, intraoperative transesophageal echocardiogram and epi-aortic scanning. Patient was extubated last night around 7 PM, and she tolerated the extubation well. Patient remains in the ICU, denies any shortness of breath, she is in sinus rhythm, hemodynamically stable however she is still on low dose of Primacor, and amiodarone. No major issues over the last 12 hours. Patient is resting in a bedside chair, he is on few liters nasal cannula, chest x-ray showed minimal postoperative changes and atelectasis. Overall the patient is doing great. CBC is relatively normal hemoglobin is 9.4. Basic metabolic profile is normal. Cardiac output is 5.7, cardiac index is 3.1. CVP is 13. Reevaluated today on 05/24/22, patient remains in the ICU, she is on 3 L nasal cannula, she remains on Primacor at 0.1 mcg/kg/m, she is also on insulin 20 units per hour, IV fluid 0.9 normal saline at 20 mL per hour. Continues to have [place] catheter in place, her PA pressures are 50/23 and CVP is 11. Continues to have right-sided chest tube and mediastinal chest tube. WBC count is 15.6 hemoglobin is 8. Basic metabolic profile is normal renal profile is normal. Chest x-ray this a.m. showed minimal left lower lobe atelectasis, and her [place] catheter remains present Reevaluated today on 06/21/22, patient remains in the ICU, patient is postoperative day #3,chordal preserving mitral valve replacement using a 27 mm Mosaic porcine bioprosthesis, tricuspid valve repair with ring annuloplasty using a 28 mm MC3 ring, exclusion of the left atrial appendage using a 35 mm AtriClip, intraoperative transesophageal echocardiogram and epi-aortic scanning. Cardiac output remains marginal and the patient remains on Primacor, blood pressure is marginal, urine output is marginal and she is receiving Bumex. Pulmonary-kumar she is on 2 L nasal cannula, chest x-ray showed mostly by basilar atelectasis, no evidence of congestive heart failure. WBC count of 10 hemoglobin is 7, electrolytes are normal renal profile is normal. Cardiac output/cardiac index 4.1/2.2. CVP is 15. He a pressure 52/20 Progress note dated 05/27/2022. 61-year-old female postop day #5, post mitral valve replacement, tricuspid valve repair, and exclusion of left atrial appendage. Currently, the patient's on 2 L of oxygen. She's getting dopamine at 1 mcg/kg/m. She is getting saline at KVO. White count 8.7, hemoglobin 9.8, hematocrit 28.5, and platelet count 269,000. Sodium 132, with a normal potassium, chloride, CO2, anion gap, BUN, and creatinine. Chest x-ray shows postoperative changes, with small bilateral effusions. Objective - Vital Signs Vital signs: Vital Signs Temp 98.2 F 05/27/22 08:00 Pulse 73 05/27/22 09:30 Resp 15 05/27/22 09:30 BP 112/60 05/27/22 09:30 Pulse Ox 94 L 05/27/22 09:30 FiO2 50 05/22/22 16:00 Intake & Output 05/26/22 05/27/22 05/27/22 18:59 06:59 18:59 Intake Total 367.191 270 60 Output Total 1335 1000 125 Balance -967.809 -730 -65 Weight 88.5 kg Intake: IV 358 270 60 0.9 270 240 60 CO/CI 10 pressure bag 78 30 Intake, IV Titration 9.191 Amount Insulin Regular 100 unit 9.191 In Sodium Chloride 0.9% 100 ml @ Per Protocol IV .Q0M [facility] Rx#:[id number] Output: Urine 1335 1000 125 Other: Voiding Method Indwelling Catheter Bedside Commode Bedside Commode # Voids 0 ABP, PAP, CO, CI - Last Documented Arterial Blood Pressure 104/53 Pulmonary Artery Pressure 50/20 Cardiac Output 3.9 Cardiac Index 2.1 - Exam No acute distress, oriented 3. Currently on 2 L. HEENT examination is grossly unremarkable. Neck supple. Full range of motion. No adenopathy thyromegaly or neck vein distention. Cardiovascular examination reveals regular rhythm rate. S1-S2 normal. No S3 or S4. No discernible murmur noted. Heart rate 73 bpm. Lungs reveal scattered bilateral rhonchi. No wheezes or crackles. Breath sounds equal bilaterally. 2 L saturation 94%. Abdomen soft bowel sounds are heard. No masses or tenderness. Extremities are intact. No cyanosis clubbing or edema. Skin is without rash or lesion. Neurologic examination is brief but nonfocal. - Labs CBC & Chem 7: 05/27/22 05:07 05/27/22 05:07 Labs: Abnormal Lab Results - Last 24 Hours (Table) 05/26/22 05/26/22 05/26/22 Range/Units 12:15 13:12 16:53 RBC (3.80-5.40) m/uL Hgb (11.4-16.0) gm/dL Hct (34.0-46.0) % RDW (11.5-15.5) % Sodium (137-145) mmol/L Glucose (74-99) mg/dL POC Glucose (mg/dL) 169 H 139 H 137 H (70-110) mg/dL Calcium (8.4-10.2) mg/dL AST (14-36) U/L ALT (4-34) U/L Alkaline Phosphatase (38-126) U/L Total Protein (6.3-8.2) g/dL Albumin (3.5-5.0) g/dL 05/26/22 05/27/22 05/27/22 Range/Units 20:38 05:07 05:07 RBC 3.05 L (3.80-5.40) m/uL Hgb 9.8 L (11.4-16.0) gm/dL Hct 28.5 L (34.0-46.0) % RDW 15.6 H (11.5-15.5) % Sodium 132 L (137-145) mmol/L Glucose 107 H (74-99) mg/dL POC Glucose (mg/dL) 169 H (70-110) mg/dL Calcium 8.3 L (8.4-10.2) mg/dL AST 101 H (14-36) U/L ALT 76 H (4-34) U/L Alkaline Phosphatase 186 H (38-126) U/L Total Protein 5.5 L (6.3-8.2) g/dL Albumin 3.2 L (3.5-5.0) g/dL Assessment and Plan Assessment: Postop day #5, status post mitral valve replacement, tricuspid valve repair, and exclusion of left atrial appendage. Routine postoperative ventilator management. Severe rheumatic mitral valve stenosis and severe pulmonary hypertension, with moderate mitral valve regurgitation. Chronic diastolic CHF. History of nonocclusive CAD. Hypertension. 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 History of supraventricular tachycardia. Postoperative blood loss. Postoperative atelectasis. Plan: Plan dated 05/27/2022. The patient appears to be doing relatively well. She is on 2 L. She's getting dopamine at 1 mcg/kg/m. She is resting comfortably. X-ray, labs, and medications are all reviewed. Follow the patient make recommendations along the way. We do encourage continued use of the incentive spirometer. Time with Patient: Less than 30
[2022-05-27] MEDS: bisacodyL 10 MG SUPP RECTAL PRN (11:09)
[2022-05-27] MEDS: FUROSEMIDE 10 MG/ML 2 ML VIAL IV SCH ×2 (11:09→17:12)
[2022-05-27 11:20] LABS: Glucose,Whole Blood 135 mg/dL (70-110)
--- NOTE | 2022-05-27 11:42 | P.PN ---
Subjective Progress Note Date: 05/27/22 Patient is a 61-year-old female with recently diagnosed rheumatic mitral valve disease with severe stenosis and regurg, severe pulmonary hypertension, and HTN who presented to the emergency room with complaints of shortness of breath, lower extremity edema, and abdominal distention. The patient was recently admitted to the hospital from 04/25-04/27 for similar complaints, at which time she was diagnosed with the above mitral valve disease. The patient was advised to follow-up as an outpatient for an elective mitral valve repair/replacement with cardiothoracic surgery. Upon arrival at the emergency room vital signs were within normal limits. Chest CTA revealed no evidence of PE with a right pleural effusion. EKG revealed sinus tachycardia with PVCs at 102 bpm with no notable ST/T-wave changes noted as reviewed by me. Laboratory evaluation was remarkable for troponin of less than 0.012, proBNP 3870, AST 132, ALT 158, and alk phos 232 with a total bilirubin 1.4. She was admitted for acute exacerbation of right- sided heart failure in the setting of severe mitral valve disease. She was started on IV diuresis and cardiology was consulted. Cardiovascular surgery was also consulted. Patient underwent open heart surgery with mitral valve replacement, tricuspid valve repair, exclusion of the left atrial appendage with a 35mm atrial clip on 05/22. She was extubated on 05/22. Patient was seen and examined. No acute events overnight. She is POD 5. She reports abdominal bloating, nausea but no vomiting. No bowel movement since surgery but passing gas. Currently on dopamine. Primacor discontinued. General: nontoxic, no distress, appears at stated age Derm: warm, dry Head: atraumatic, normocephalic, symmetric Eyes: EOMI, no lid lag, anicteric sclera Mouth: no lip lesion, mucus membranes moist Cardiovascular: S1S2 reg, with murmur Lungs: Decreased BS bilateral, no rhonchi, no rales , no accessory muscle use Abd: Slightly distended, sluggish bowel sounds, non tender to palpation Ext: no gross muscle atrophy, trace edema, no contractures Neuro: no focal neuro deficits Psych: Alert, oriented, appropriate affect #Acute blood loss anemia -Expected result of surgery -s/p 2 unit PRBC -Continue to monitor #Hyponatremia, probably hypervolemic -Started on Lasix 20 mg IV BID -Avoid nephrotoxins -Daily BMP #Abdominal bloating #Constipation -KUB nonspecific -Zofran and Reglan PRN for N/V -Continue with bowel regimen #Acute exacerbation of right-sided heart failure, cor pulmonale in the setting of severe mitral valve disease #Severe mitral regurgitation with moderate to severe stenosis #Severe pulmonary hypertension #Nonobstructive coronary artery disease #Hypertension -Cardiothoracic surgery on board -Status post mitral valve replacement, tricuspid valve repair, exclusion of the left atrial appendage with a 35mm atrial clip 05/22 -Aspirin, Plavix, statin, beta vince -On Amiodarone for AFib prophylaxis -Strict I's and O's, daily weights #Transaminitis secondary to hepatic congestion -Improving with diuresis -Continue to monitor Resolved: Acute hypoxic respiratory failure, acute kidney injury, leukocytosis Objective - Vital Signs Vital signs: Vital Signs Temp 98.2 F 05/27/22 08:00 Pulse 76 05/27/22 11:00 Resp 12 05/27/22 11:00 BP 95/56 05/27/22 11:00 Pulse Ox 94 L 05/27/22 11:00 FiO2 50 05/22/22 16:00 Intake & Output 05/26/22 05/27/22 05/27/22 18:59 06:59 18:59 Intake Total 367.191 270 60 Output Total 1335 1000 125 Balance -967.809 -730 -65 Weight 88.5 kg Intake: IV 358 270 60 0.9 270 240 60 CO/CI 10 pressure bag 78 30 Intake, IV Titration 9.191 Amount Insulin Regular 100 unit 9.191 In Sodium Chloride 0.9% 100 ml @ Per Protocol IV .Q0M [facility] Rx#:[id number] Output: Urine 1335 1000 125 Other: Voiding Method Indwelling Catheter Bedside Commode Bedside Commode # Voids 0 ABP, PAP, CO, CI - Last Documented Arterial Blood Pressure 104/53 Pulmonary Artery Pressure 50/20 Cardiac Output 3.9 Cardiac Index 2.1 - Labs CBC & Chem 7: 05/27/22 05:07 05/27/22 05:07 Labs: Abnormal Lab Results - Last 24 Hours (Table) 05/26/22 05/26/22 05/26/22 Range/Units 12:15 13:12 16:53 RBC (3.80-5.40) m/uL Hgb (11.4-16.0) gm/dL Hct (34.0-46.0) % RDW (11.5-15.5) % Sodium (137-145) mmol/L Glucose (74-99) mg/dL POC Glucose (mg/dL) 169 H 139 H 137 H (70-110) mg/dL Calcium (8.4-10.2) mg/dL AST (14-36) U/L ALT (4-34) U/L Alkaline Phosphatase (38-126) U/L Total Protein (6.3-8.2) g/dL Albumin (3.5-5.0) g/dL 05/26/22 05/27/22 05/27/22 Range/Units 20:38 05:07 05:07 RBC 3.05 L (3.80-5.40) m/uL Hgb 9.8 L (11.4-16.0) gm/dL Hct 28.5 L (34.0-46.0) % RDW 15.6 H (11.5-15.5) % Sodium 132 L (137-145) mmol/L Glucose 107 H (74-99) mg/dL POC Glucose (mg/dL) 169 H (70-110) mg/dL Calcium 8.3 L (8.4-10.2) mg/dL AST 101 H (14-36) U/L ALT 76 H (4-34) U/L Alkaline Phosphatase 186 H (38-126) U/L Total Protein 5.5 L (6.3-8.2) g/dL Albumin 3.2 L (3.5-5.0) g/dL 05/27/22 Range/Units 11:19 RBC (3.80-5.40) m/uL Hgb (11.4-16.0) gm/dL Hct (34.0-46.0) % RDW (11.5-15.5) % Sodium (137-145) mmol/L Glucose (74-99) mg/dL POC Glucose (mg/dL) 135 H (70-110) mg/dL Calcium (8.4-10.2) mg/dL AST (14-36) U/L ALT (4-34) U/L Alkaline Phosphatase (38-126) U/L Total Protein (6.3-8.2) g/dL Albumin (3.5-5.0) g/dL
[2022-05-27 16:53] LABS: Glucose,Whole Blood 121 mg/dL (70-110)
[2022-05-27] MEDS: SODIUM CHLORIDE 0.9% 1,000 ML IV SCH (17:05)
[2022-05-27 20:25] LABS: Glucose,Whole Blood 184 mg/dL (70-110)
[2022-05-27] MEDS: SENNOSIDES-DOCUSATE SODIUM 1 EACH TAB PO SCH (20:54)
[2022-05-27] MEDS: HYDROcodone/APAP 7.5-325MG 1 EACH TAB PO PRN (20:55)
[2022-05-28] MEDS: CALCIUM CARBONATE 500 MG CHEWABLE PO PRN (02:20)
[2022-05-28] MEDS: HYDROcodone/APAP 7.5-325MG 1 EACH TAB PO PRN ×4 (02:20→20:22)
[2022-05-28] MEDS: ONDANSETRON 4 MG/2 ML VIAL IVP PRN ×2 (05:07→21:05)
[2022-05-28] MEDS: METOCLOPRAMIDE 5 MG/ML 2 ML VIAL IVP PRN (05:50)
[2022-05-28 06:36] LABS: Glucose,Whole Blood 114 mg/dL (70-110)
[2022-05-28] MEDS: INSULIN ASPART (NovoLOG) 100 UNIT/ML VIAL SQ SCH ×4 (06:38→20:24)
[2022-05-28] MEDS: ASCORBIC ACID 500 MG TAB PO SCH ×2 (06:48→16:51)
[2022-05-28] MEDS: PANTOPRAZOLE 40 MG TABLET PO SCH ×2 (06:48→16:53)
--- NOTE | 2022-05-28 07:30 | P.PN ---
Subjective Progress Note Date: 05/28/22 Principal diagnosis: Valvular heart disease The patient is a pleasant 61-year-old female patient who is known to have valvular heart disease who underwent mitral valve replacement and tricuspid valve repair. She's also does have pulmonary hypertension likely to be the unit show group to pulmonary hypertension secondary to valvular heart disease and left side disease. May [id number] She was evaluated this morning. She remains a stable from the cardiovascular standpoint of view. She is on dual antiplatelet therapy which is an intermediate intensity statin. Chest x-ray was reviewed this morning and seems to be stable. From a cardiovascular standpoint of view, we'll continue the current medical regimen and continue monitor the kidney function and electrolytes and follow-up with the patient May [id number] The patient was seen and evaluated this morning. She seems stable from a cardiovascular standpoint of view. She continues to be in sinus rhythm with a long first-degree AV block. From the cardiovascular standpoint of view, we'll continue the current medical regimen and taper down the dose of amiodarone and continue dual antiplatelet therapy along with a statin and follow-up with the patient. Continue monitor the kidney function as well as electrolytes. Objective - Vital Signs Vital signs: Vital Signs Temp 97.7 F 05/28/22 04:00 Pulse 79 05/28/22 07:00 Resp 16 05/28/22 07:00 BP 121/47 05/28/22 07:00 Pulse Ox 91 L 05/28/22 07:00 FiO2 50 05/22/22 16:00 Intake & Output 05/27/22 05/28/22 05/28/22 18:59 06:59 18:59 Intake Total 140 Output Total 635 525 100 Balance -495 -525 -100 Weight 89.1 kg Intake: IV 140 0.9 140 Output: Urine 635 525 100 Other: Voiding Method Bedside Commode Bedside Commode # Voids 1 0 # Bowel Movements 1 ABP, PAP, CO, CI - Last Documented Arterial Blood Pressure 104/53 Pulmonary Artery Pressure 50/20 Cardiac Output 3.9 Cardiac Index 2.1 - Constitutional General appearance: Present: no acute distress - Respiratory Respiratory: bilateral: diminished - Cardiovascular Rhythm: regular - Labs CBC & Chem 7: 05/27/22 05:07 05/27/22 05:07 Labs: Abnormal Lab Results - Last 24 Hours (Table) 12/11/1105/27/22 05/27/22 Range/Units 11:19 16:51 20:24 POC Glucose (mg/dL) 135 H 121 H 184 H (70-110) mg/dL 05/28/22 Range/Units 06:35 POC Glucose (mg/dL) 114 H (70-110) mg/dL Assessment and Plan Assessment: Assessment Valvular heart disease Status post mitral valve replacement and tricuspid valve repair Multiple comorbid conditions Plan Continue the current medical regimen Continue dual antiplatelet therapy Continue intermediate intensity statin Taper down the dose of amiodarone
[2022-05-28 07:43] LABS: HCT 31.8 % (34.0-46.0); HGB 10.5 gm/dL (11.4-16.0); Hypochromasia Slight; MCH 31.7 pg (25.0-35.0); MCHC 33.2 g/dL (31.0-37.0); MCV 95.6 fL (80.0-100.0); Mean Platelet Volume 8.2; Platelet Count 201 k/uL (150-450); RBC 3.32 m/uL (3.80-5.40); RDW 15.1 % (11.5-15.5)
[2022-05-28 07:54] LABS: ALT 106 U/L (4-34); AST 167 U/L (14-36); African American GFR (CKD) >90 (>60 ml/min/1.73 sqM); Albumin 3.6 g/dL (3.5-5.0); Alkaline Phosphatase 215 U/L (38-126); Anion Gap 9 mmol/L; Blood Urea Nitrogen 18 mg/dL (7-17); Calcium 8.2 mg/dL (8.4-10.2); Carbon Dioxide 23 mmol/L (22-30); Chloride 100 mmol/L (98-107); Glucose 84 mg/dL (74-99); Non-African American GFR(CKD) >90 (>60 ml/min/1.73 sqM); Potassium 4.1 mmol/L (3.5-5.1); Sodium 132 mmol/L (137-145); Total Bilirubin 1.3 mg/dL (0.2-1.3)
[2022-05-28] MEDS: SYMBICORT 160-4.5 MCG INHALER INHALATION SCH ×3 (08:07→20:33)
[2022-05-28] MEDS: IPRATROPIUM-ALBUTEROL 3 ML NEB INHALATION SCH ×5 (08:08→20:33)
--- NOTE | 2022-05-28 08:12 | P.PN ---
Subjective Progress Note Date: 05/28/22 Principal diagnosis: Severe rheumatic mitral valve stenosis with severe pulmonary hypertension, moderate mitral valve regurgitation, preserved left ventricular systolic function, moderate right ventricular dysfunction, moderate tricuspid valve regurgitation, acute on chronic diastolic heart failure, transaminitis. History of mild nonobstructive coronary artery disease, hypertension, hyperlipidemia, previous tobacco dependence with recent cessation, severe COPD, supraventricular tachycardia, depression, remote history of pneumonia, and family history of coronary artery disease POD #6 chordal preserving mitral valve replacement using a 27 mm Mosaic porcine bioprosthesis, tricuspid valve repair with ring annuloplasty using a 28 mm MC3 ring, exclusion of the left atrial appendage using a 35 mm AtriClip, intraoperative transesophageal echocardiogram and epi-aortic scanning Postoperative acute blood loss anemia, expected given hemodilution and cardiopulmonary bypass pump The patient was seen and examined with morning sitting up in a recliner intensive care unit in no acute distress. She does complain of heartburn (better than yesterday which she states she did have prior to coming to the hospital) but no other pain or shortness of breath. Currently sinus rhythm with first-degree AV block, hemodynamically stable. Currently on room air with oxygen saturation in the mid 90s. Has ambulated in the hallway without difficulty and had first postoperative shower yesterday. Objective - Vital Signs Vital signs: Vital Signs Temp 97.7 F 05/28/22 04:00 Pulse 79 05/28/22 07:00 Resp 16 05/28/22 07:00 BP 121/47 05/28/22 07:00 Pulse Ox 91 L 05/28/22 07:00 FiO2 50 05/22/22 16:00 Intake & Output 05/27/22 05/28/22 05/28/22 18:59 06:59 18:59 Intake Total 140 Output Total 635 525 100 Balance -495 -525 -100 Weight 89.1 kg Intake: IV 140 0.9 140 Output: Urine 635 525 100 Other: Voiding Method Bedside Commode Bedside Commode # Voids 1 0 # Bowel Movements 1 ABP, PAP, CO, CI - Last Documented Arterial Blood Pressure 104/53 Pulmonary Artery Pressure 50/20 Cardiac Output 3.9 Cardiac Index 2.1 - Exam CONSTITUTIONAL: Appears comfortable, cooperative, no distress RESPIRATORY: Lungs sounds diminished bilaterally. Respirations even, non labored. Currently on room air with oxygen saturation 96%. Able to achieve 1000 mL on incentive spirometry. Strong nonproductive cough. CARDIOVASCULAR: S1, S2 present. Regular rate and rhythm, sinus rhythm with first-degree AV block on telemetry. Sternum stable. Palpable peripheral pulses bilaterally. Trace generalized edema present. No calf pain or tenderness noted. Heart hugger in place with patient demonstrating appropriate use. Antiembolism stockings, SCDs present. GASTROINTESTINAL: Abdomen soft, nontender, slightly distended. Tympanic to percussion. Active bowel sounds present 4 quadrants. Tolerating diet. Positive bowel movement 05/27 GENITOURINARY: Continues to void clear, yellow urine INTEGUMENTARY: Skin is warm and dry with evidence of good perfusion. Anterior chest incision well approximated and covered with dry intact dressing NEUROLOGIC: Cranial nerves II through XII intact MUSKULOSKELETAL: Able to move all extremities, strength equal bilaterally PSYCHIATRIC: Alert and oriented to person place and time, appropriate affect, intact judgment and insight - Allied health notes Allied health notes reviewed: nursing - Labs CBC & Chem 7: 05/28/22 06:51 05/28/22 06:51 Labs: Abnormal Lab Results - Last 24 Hours (Table) 05/27/22 05/27/22 05/27/22 Range/Units 11:19 16:51 20:24 WBC (3.8-10.6) k/uL RBC (3.80-5.40) m/uL Hgb (11.4-16.0) gm/dL Hct (34.0-46.0) % Sodium (137-145) mmol/L BUN (7-17) mg/dL POC Glucose (mg/dL) 135 H 121 H 184 H (70-110) mg/dL Calcium (8.4-10.2) mg/dL AST (14-36) U/L ALT (4-34) U/L Alkaline Phosphatase (38-126) U/L Total Protein (6.3-8.2) g/dL 05/28/22 05/28/22 05/28/22 Range/Units 06:35 06:51 06:51 WBC 11.0 H (3.8-10.6) k/uL RBC 3.32 L (3.80-5.40) m/uL Hgb 10.5 L (11.4-16.0) gm/dL Hct 31.8 L (34.0-46.0) % Sodium 132 L (137-145) mmol/L BUN 18 H (7-17) mg/dL POC Glucose (mg/dL) 114 H (70-110) mg/dL Calcium 8.2 L (8.4-10.2) mg/dL AST 167 H (14-36) U/L ALT 106 H (4-34) U/L Alkaline Phosphatase 215 H (38-126) U/L Total Protein 6.0 L (6.3-8.2) g/dL - Imaging and Cardiology Chest x-ray: image reviewed Assessment and Plan Assessment: 1. 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 Preserved left ventricular systolic function, moderate right ventricular dysfunction, EF 55-60% 3. Moderate tricuspid valve regurgitation, status post tricuspid valve repair 4. Acute on chronic diastolic heart failure 5. Transaminitis 6. History of mild nonobstructive coronary artery disease 7. Hypertension 8. Hyperlipidemia, treated, cholesterol 196, LDL 99, triglycerides 254 9. Previous tobacco dependence with recent cessation 10. Severe COPD, preoperative FEV1 42% of predicted 11. History of supraventricular tachycardia 12. Depression 13. Remote history of pneumonia 14. Family history of coronary artery disease 15. Postoperative acute blood loss anemia, expected Plan: 1. Continue to maximize medical therapy with aspirin, statin, Plavix, beta vince. 2. Continue amiodarone for A. fib prophylaxis, will decrease to 200 mg twice a day today 3. Encourage incentive spirometry 10 times every hour while awake. Bronchodilators per pulmonology 4. Increase activity as tolerated. PT/OT/cardiac rehab following. Shower daily 5. Will monitor daily labs and x-rays. Electrolyte replacement per protocol. Increase lasix 40 mg IVP BID 6. GI/DVT prophylaxis. Continue protonix BID, tums PRN 7. Pain control with current medication regimen 8. Insulin management per internal medicine service. Preoperative hemoglobin A1c 6.4% 9. Strict accurate intake and output. Daily weights 10. Will place transfer orders for 3 S. cardiac stepdown unit today, may transfer when bed available 11. Discharge planning in progress. Anticipate discharge to home with home care in 24-48 hours 12. More recommendations to follow
[2022-05-28] MEDS: ASPIRIN 325 MG TAB PO SCH (08:28)
[2022-05-28] MEDS: METOPROLOL TARTRATE 25 MG TAB PO SCH ×2 (08:28→20:23)
[2022-05-28] MEDS: CITALOPRAM HYDROBROMIDE 20 MG TAB PO SCH ×2 (08:28→20:24)
[2022-05-28] MEDS: HEPARIN SODIUM,PORCINE/PF 5,000 UNIT/0.5 ML SYRINGE SQ SCH ×2 (08:28→15:30)
[2022-05-28] MEDS: ATORVASTATIN 40 MG TAB PO SCH (08:28)
[2022-05-28] MEDS: CLOPIDOGREL 75 MG TAB PO SCH (08:28)
[2022-05-28] MEDS: AMIODARONE 200 MG TAB PO SCH ×2 (08:28→20:24)
[2022-05-28] MEDS: FUROSEMIDE 10 MG/ML 2 ML VIAL IV SCH (08:29)
[2022-05-28] MEDS: polyethylene glycoL 3350 17 GM POWD.PACK PO SCH (08:29)
--- NOTE | 2022-05-28 08:55 | XR ---
EXAMINATION TYPE: XR chest 1V portable DATE OF EXAM: 05/28/2022 6:47 AM COMPARISON: Chest radiographs from 05/27/2022. TECHNIQUE: XR chest 1V portable Frontal view of the chest. CLINICAL INDICATION:Female, 61 years old with history of post cardiac surgery; FINDINGS: Lungs/Pleura: Stable small bilateral pleural effusions with associated atelectasis. No pneumothorax. Pulmonary vascularity: Unremarkable. Heart/mediastinum: Cardiomediastinal silhouette is enlarged and stable. Postsurgical changes with va lve repair. Left atrial appendage occlusion device is present. Musculoskeletal: No acute osseous pathology. Midline sternotomy wires are noted and stable. IMPRESSION: Stable bilateral small pleural effusions with associated atelectasis.
--- NOTE | 2022-05-28 10:08 | P.PN ---
Subjective Progress Note Date: 05/28/22 Principal diagnosis: ICU management. Reevaluated today on 05/23/22, patient is now postoperative day #1chordal preserving mitral valve replacement using a 27 mm Mosaic porcine bioprosthesis, tricuspid valve repair with ring annuloplasty using a 28 mm MC3 ring, exclusion of the left atrial appendage using a 35 mm AtriClip, intraoperative transesophageal echocardiogram and epi-aortic scanning. Patient was extubated last night around 7 PM, and she tolerated the extubation well. Patient remains in the ICU, denies any shortness of breath, she is in sinus rhythm, hemodynamically stable however she is still on low dose of Primacor, and amiodarone. No major issues over the last 12 hours. Patient is resting in a bedside chair, he is on few liters nasal cannula, chest x-ray showed minimal postoperative changes and atelectasis. Overall the patient is doing great. CBC is relatively normal hemoglobin is 9.4. Basic metabolic profile is normal. Cardiac output is 5.7, cardiac index is 3.1. CVP is 13. Reevaluated today on 05/24/22, patient remains in the ICU, she is on 3 L nasal cannula, she remains on Primacor at 0.1 mcg/kg/m, she is also on insulin 20 units per hour, IV fluid 0.9 normal saline at 20 mL per hour. Continues to have Fountain-Celso catheter in place, her PA pressures are 50/23 and CVP is 11. Continues to have right-sided chest tube and mediastinal chest tube. WBC count is 15.6 hemoglobin is 8. Basic metabolic profile is normal renal profile is normal. Chest x-ray this a.m. showed minimal left lower lobe atelectasis, and her Fountain-Celso catheter remains present Reevaluated today on 06/21/22, patient remains in the ICU, patient is postoperative day #3,chordal preserving mitral valve replacement using a 27 mm Mosaic porcine bioprosthesis, tricuspid valve repair with ring annuloplasty using a 28 mm MC3 ring, exclusion of the left atrial appendage using a 35 mm AtriClip, intraoperative transesophageal echocardiogram and epi-aortic scanning. Cardiac output remains marginal and the patient remains on Primacor, blood pressure is marginal, urine output is marginal and she is receiving Bumex. Pulmonary-kumar she is on 2 L nasal cannula, chest x-ray showed mostly by basilar atelectasis, no evidence of congestive heart failure. WBC count of 10 hemoglobin is 7, electrolytes are normal renal profile is normal. Cardiac output/cardiac index 4.1/2.2. CVP is 15. He a pressure 52/20 Progress note dated 05/27/2022. 61-year-old female postop day #5, post mitral valve replacement, tricuspid valve repair, and exclusion of left atrial appendage. Currently, the patient's on 2 L of oxygen. She's getting dopamine at 1 mcg/kg/m. She is getting saline at KVO. White count 8.7, hemoglobin 9.8, hematocrit 28.5, and platelet count 269,000. Sodium 132, with a normal potassium, chloride, CO2, anion gap, BUN, and creatinine. Chest x-ray shows postoperative changes, with small bilateral effusions. Progress note dated 05/28/2022. 61-year-old female postop day #6, status post mitral valve replacement, tricuspid valve repair, and exclusion of left atrial appendage. Currently, the patient's on room air. She's not receiving any IV fluids. She sitting in a chair of next to her bed. Yesterday, she was on 2 L and on a small dose of dopamine. She is on neither today. White count 11, hemoglobin 10.5, hematocrit 31.8, sodium 132, potassium 4.1, chlorides 100, CO2 23, BUN 18 and creatinine 0.65. Platelet count was normal at 201,000. Chest x-ray shows small effusions, and basilar atelectasis. Objective - Vital Signs Vital signs: Vital Signs Temp 97.3 F L 05/28/22 08:00 Pulse 80 05/28/22 08:31 Resp 23 05/28/22 08:00 BP 125/79 05/28/22 08:00 Pulse Ox 98 05/28/22 08:00 FiO2 50 05/22/22 16:00 Intake & Output 05/27/22 05/28/22 05/28/22 18:59 06:59 18:59 Intake Total 140 200 Output Total 635 525 100 Balance -495 -525 100 Weight 89.1 kg Intake: IV 140 0.9 140 Oral 200 Output: Urine 635 525 100 Other: Voiding Method Bedside Commode Bedside Commode Bedside Commode # Voids 1 0 # Bowel Movements 1 ABP, PAP, CO, CI - Last Documented Arterial Blood Pressure 104/53 Pulmonary Artery Pressure 50/20 Cardiac Output 3.9 Cardiac Index 2.1 - Exam No acute distress, oriented 3. Currently on room air. HEENT examination is grossly unremarkable. Neck supple. Full range of motion. No adenopathy thyromegaly or neck vein distention. Cardiovascular examination reveals regular rhythm rate. S1-S2 normal. No S3 or S4. No discernible murmur noted. Heart rate 80 bpm. Lungs reveal scattered bilateral rhonchi. No wheezes or crackles. Breath sounds equal bilaterally. Room air saturation 98%. Abdomen soft bowel sounds are heard. No masses or tenderness. Extremities are intact. No cyanosis clubbing or edema. Skin is without rash or lesion. Neurologic examination is brief but nonfocal. - Labs CBC & Chem 7: 05/28/22 06:51 05/28/22 06:51 Labs: Abnormal Lab Results - Last 24 Hours (Table) 05/27/22 05/27/22 05/27/22 Range/Units 11:19 16:51 20:24 WBC (3.8-10.6) k/uL RBC (3.80-5.40) m/uL Hgb (11.4-16.0) gm/dL Hct (34.0-46.0) % Sodium (137-145) mmol/L BUN (7-17) mg/dL POC Glucose (mg/dL) 135 H 121 H 184 H (70-110) mg/dL Calcium (8.4-10.2) mg/dL AST (14-36) U/L ALT (4-34) U/L Alkaline Phosphatase (38-126) U/L Total Protein (6.3-8.2) g/dL 05/28/22 05/28/22 05/28/22 Range/Units 06:35 06:51 06:51 WBC 11.0 H (3.8-10.6) k/uL RBC 3.32 L (3.80-5.40) m/uL Hgb 10.5 L (11.4-16.0) gm/dL Hct 31.8 L (34.0-46.0) % Sodium 132 L (137-145) mmol/L BUN 18 H (7-17) mg/dL POC Glucose (mg/dL) 114 H (70-110) mg/dL Calcium 8.2 L (8.4-10.2) mg/dL AST 167 H (14-36) U/L ALT 106 H (4-34) U/L Alkaline Phosphatase 215 H (38-126) U/L Total Protein 6.0 L (6.3-8.2) g/dL Assessment and Plan Assessment: Postop day #6, status post mitral valve replacement, tricuspid valve repair, and exclusion of left atrial appendage. Routine postoperative ventilator management. Severe rheumatic mitral valve stenosis and severe pulmonary hypertension, with moderate mitral valve regurgitation. Chronic diastolic CHF. History of nonocclusive CAD. Hypertension. 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 History of supraventricular tachycardia. Postoperative blood loss. Postoperative atelectasis. Plan: Plan dated 05/27/2022. The patient appears to be doing relatively well. She is on 2 L. She's getting dopamine at 1 mcg/kg/m. She is resting comfortably. X-ray, labs, and medications are all reviewed. Follow the patient make recommendations along the way. We do encourage continued use of the incentive spirometer. Plan dated 05/28/2022. Today is postop day #6. The patient's currently on room air. Saturations are 9 8%. The patient's dopamine has been discontinued. Labs, x-rays, and medications are all reviewed. Clinically, the patient is well. She sitting up in a chair next to her bed. She denies any significant breathing issues. We encourage her to continue using the incentive spirometer, and also encourage her to deep breathe, cough, and clear secretions. Time with Patient: Less than 30
[2022-05-28] MEDS: FUROSEMIDE 10 MG/ML 4 ML VIAL IV SCH ×2 (10:49→16:51)
[2022-05-28 11:34] LABS: Glucose,Whole Blood 115 mg/dL (70-110)
--- NOTE | 2022-05-28 12:21 | P.PN ---
Subjective Progress Note Date: 05/28/22 Patient is a 61-year-old female with recently diagnosed rheumatic mitral valve disease with severe stenosis and regurg, severe pulmonary hypertension, and HTN who presented to the emergency room with complaints of shortness of breath, lower extremity edema, and abdominal distention. The patient was recently admitted to the hospital from 04/25-04/27 for similar complaints, at which time she was diagnosed with the above mitral valve disease. The patient was advised to follow-up as an outpatient for an elective mitral valve repair/replacement with cardiothoracic surgery. Upon arrival at the emergency room vital signs were within normal limits. Chest CTA revealed no evidence of PE with a right pleural effusion. EKG revealed sinus tachycardia with PVCs at 102 bpm with no notable ST/T-wave changes noted as reviewed by me. Laboratory evaluation was remarkable for troponin of less than 0.012, proBNP 3870, AST 132, ALT 158, and alk phos 232 with a total bilirubin 1.4. She was admitted for acute exacerbation of right- sided heart failure in the setting of severe mitral valve disease. She was started on IV diuresis and cardiology was consulted. Cardiovascular surgery was also consulted. Patient underwent open heart surgery with mitral valve replacement, tricuspid valve repair, exclusion of the left atrial appendage with a 35mm atrial clip on 05/22. She was extubated on 05/22. Patient was seen and examined. No acute events overnight. She is POD 6. She reports abdominal bloating, nausea but no vomiting. Had a bowel movement this morning. Dopamine and Primacor discontinued. General: nontoxic, no distress, appears at stated age Derm: warm, dry Head: atraumatic, normocephalic, symmetric Eyes: EOMI, no lid lag, anicteric sclera Mouth: no lip lesion, mucus membranes moist Cardiovascular: S1S2 reg, with murmur Lungs: Decreased BS bilateral, no rhonchi, no rales , no accessory muscle use Abd: Slightly distended, sluggish bowel sounds, non tender to palpation Ext: no gross muscle atrophy, trace edema, no contractures Neuro: no focal neuro deficits Psych: Alert, oriented, appropriate affect #Acute blood loss anemia -Expected result of surgery -s/p 2 unit PRBC -Continue to monitor #Hyponatremia, probably hypervolemic -Started on Lasix 20 mg IV BID -Improving -Daily BMP #Abdominal bloating #Constipation -KUB nonspecific -Zofran and Reglan PRN for N/V -Simethicone -Continue with bowel regimen #Acute exacerbation of right-sided heart failure, cor pulmonale in the setting of severe mitral valve disease #Severe mitral regurgitation with moderate to severe stenosis #Severe pulmonary hypertension #Nonobstructive coronary artery disease #Hypertension -Cardiothoracic surgery on board -Status post mitral valve replacement, tricuspid valve repair, exclusion of the left atrial appendage with a 35mm atrial clip 05/22 -Aspirin, Plavix, statin, beta vince -On Amiodarone for AFib prophylaxis -Strict I's and O's, daily weights #Transaminitis secondary to hepatic congestion -Improving with diuresis -Continue to monitor Resolved: Acute hypoxic respiratory failure, acute kidney injury, leukocytosis Objective - Vital Signs Vital signs: Vital Signs Temp 97.3 F L 05/28/22 08:00 Pulse 80 05/28/22 11:46 Resp 23 05/28/22 08:00 BP 125/79 05/28/22 08:00 Pulse Ox 98 05/28/22 08:00 FiO2 50 05/22/22 16:00 Intake & Output 05/27/22 05/28/22 05/28/22 18:59 06:59 18:59 Intake Total 140 200 Output Total 635 525 100 Balance -495 -525 100 Weight 89.1 kg Intake: IV 140 0.9 140 Oral 200 Output: Urine 635 525 100 Other: Voiding Method Bedside Commode Bedside Commode Bedside Commode # Voids 1 0 # Bowel Movements 1 ABP, PAP, CO, CI - Last Documented Arterial Blood Pressure 104/53 Pulmonary Artery Pressure 50/20 Cardiac Output 3.9 Cardiac Index 2.1 - Labs CBC & Chem 7: 05/28/22 06:51 05/28/22 06:51 Labs: Abnormal Lab Results - Last 24 Hours (Table) 05/27/22 05/27/22 05/28/22 Range/Units 16:51 20:24 06:35 WBC (3.8-10.6) k/uL RBC (3.80-5.40) m/uL Hgb (11.4-16.0) gm/dL Hct (34.0-46.0) % Sodium (137-145) mmol/L BUN (7-17) mg/dL POC Glucose (mg/dL) 121 H 184 H 114 H (70-110) mg/dL Calcium (8.4-10.2) mg/dL AST (14-36) U/L ALT (4-34) U/L Alkaline Phosphatase (38-126) U/L Total Protein (6.3-8.2) g/dL 05/28/22 05/28/22 05/28/22 Range/Units 06:51 06:51 11:33 WBC 11.0 H (3.8-10.6) k/uL RBC 3.32 L (3.80-5.40) m/uL Hgb 10.5 L (11.4-16.0) gm/dL Hct 31.8 L (34.0-46.0) % Sodium 132 L (137-145) mmol/L BUN 18 H (7-17) mg/dL POC Glucose (mg/dL) 115 H (70-110) mg/dL Calcium 8.2 L (8.4-10.2) mg/dL AST 167 H (14-36) U/L ALT 106 H (4-34) U/L Alkaline Phosphatase 215 H (38-126) U/L Total Protein 6.0 L (6.3-8.2) g/dL
[2022-05-28] MEDS: SIMETHICONE 80 MG CHEWABLE PO SCH ×3 (15:30→20:24)
[2022-05-28 16:46] LABS: Glucose,Whole Blood 171 mg/dL (70-110)
[2022-05-28 20:18] LABS: Glucose,Whole Blood 150 mg/dL (70-110)
[2022-05-28] MEDS: SENNOSIDES-DOCUSATE SODIUM 1 EACH TAB PO SCH (20:23)
[2022-05-29] MEDS: HEPARIN SODIUM,PORCINE/PF 5,000 UNIT/0.5 ML SYRINGE SQ SCH ×3 (00:05→17:40)
[2022-05-29] MEDS: HYDROcodone/APAP 7.5-325MG 1 EACH TAB PO PRN ×5 (00:06→21:12)
[2022-05-29] MEDS: CALCIUM CARBONATE 500 MG CHEWABLE PO PRN ×3 (00:06→17:40)
[2022-05-29 06:32] LABS: HGB 10.4 gm/dL (11.4-16.0); MCH 32.7 pg (25.0-35.0); MCHC 34.7 g/dL (31.0-37.0); MCV 94.4 fL (80.0-100.0); Mean Platelet Volume 8.7; Platelet Count 255 k/uL (150-450); RBC 3.17 m/uL (3.80-5.40); RDW 15.4 % (11.5-15.5); WBC 13.5 k/uL (3.8-10.6)
[2022-05-29 06:33] LABS: Glucose,Whole Blood 99 mg/dL (70-110)
[2022-05-29] MEDS: INSULIN ASPART (NovoLOG) 100 UNIT/ML VIAL SQ SCH ×4 (06:34→21:17)
[2022-05-29] MEDS: ASCORBIC ACID 500 MG TAB PO SCH ×2 (06:37→17:41)
[2022-05-29] MEDS: PANTOPRAZOLE 40 MG TABLET PO SCH ×2 (06:37→17:41)
[2022-05-29 06:50] LABS: ALT 92 U/L (4-34); AST 108 U/L (14-36); African American GFR (CKD) >90 (>60 ml/min/1.73 sqM); Albumin 3.5 g/dL (3.5-5.0); Alkaline Phosphatase 267 U/L (38-126); Anion Gap 8 mmol/L; Blood Urea Nitrogen 19 mg/dL (7-17); Calcium 8.3 mg/dL (8.4-10.2); Carbon Dioxide 27 mmol/L (22-30); Chloride 97 mmol/L (98-107); Glucose 95 mg/dL (74-99); Non-African American GFR(CKD) >90 (>60 ml/min/1.73 sqM); Potassium 4.1 mmol/L (3.5-5.1); Sodium 132 mmol/L (137-145); Total Bilirubin 1.2 mg/dL (0.2-1.3); Total Protein 5.9 g/dL (6.3-8.2)
--- NOTE | 2022-05-29 07:27 | XR ---
EXAMINATION TYPE: XR chest 2V DATE OF EXAM: 05/29/2022 5:36 AM COMPARISON: Chest radiograph from one day prior. TECHNIQUE: XR chest 2V Frontal and lateral views of the chest. CLINICAL INDICATION:Female, 61 years old with history of post cardiac surgery; FINDINGS: Lungs/Pleura: There is no evidence of focal consolidation, or pneumothorax. Blunting of the costoph renic angles bilaterally. Pulmonary vascularity: Unremarkable. Heart/mediastinum: Cardiomediastinal silhouette is unremarkable. Post valve repair changes. Left atr ial appendage occlusion device is present. Musculoskeletal: No acute osseous pathology. Midline sternotomy wires are noted. IMPRESSION: Trace bilateral pleural effusions, similar to prior.
--- NOTE | 2022-05-29 07:52 | P.PN ---
Subjective Progress Note Date: 05/29/22 Principal diagnosis: Valvular heart disease The patient is a pleasant 61-year-old female patient who is known to have valvular heart disease who underwent mitral valve replacement and tricuspid valve repair. She's also does have pulmonary hypertension likely to be the unit show group to pulmonary hypertension secondary to valvular heart disease and left side disease. May [id number] She was evaluated this morning. She remains a stable from the cardiovascular standpoint of view. She is on dual antiplatelet therapy which is an intermediate intensity statin. Chest x-ray was reviewed this morning and seems to be stable. From a cardiovascular standpoint of view, we'll continue the current medical regimen and continue monitor the kidney function and electrolytes and follow-up with the patient May [id number] The patient was seen and evaluated this morning. She seems stable from a cardiovascular standpoint of view. She continues to be in sinus rhythm with a long first-degree AV block. From the cardiovascular standpoint of view, we'll continue the current medical regimen and taper down the dose of amiodarone and continue dual antiplatelet therapy along with a statin and follow-up with the patient. Continue monitor the kidney function as well as electrolytes. May [id number] The patient was seen and evaluated this morning. The patient seems to be stable from a cardiovascular standpoint of view. She remains in sinus rhythm with first-degree AV block. Overall she is doing well. At this point we'll continue the current medical regimen including the current medical regimen and follow-up with the patient. The patient potentially can be transferred out of the intensive care unit Objective - Vital Signs Vital signs: Vital Signs Temp 97.4 F L 05/29/22 04:00 Pulse 81 05/29/22 04:00 Resp 18 05/29/22 04:00 BP 119/72 05/29/22 04:00 Pulse Ox 97 05/29/22 04:00 FiO2 50 05/22/22 16:00 Intake & Output 05/28/22 05/29/22 05/29/22 18:59 06:59 18:59 Intake Total 1000 750 Output Total 1500 750 Balance -500 0 Weight 88.6 kg Intake: Oral 1000 750 Output: Urine 1500 750 Other: Voiding Method Bedside Commode Bedside Commode ABP, PAP, CO, CI - Last Documented Arterial Blood Pressure 104/53 Pulmonary Artery Pressure 50/20 Cardiac Output 3.9 Cardiac Index 2.1 - Labs CBC & Chem 7: 05/29/22 05:51 05/29/22 05:51 Labs: Abnormal Lab Results - Last 24 Hours (Table) 05/28/22 05/28/22 05/28/22 Range/Units 06:51 11:33 16:44 WBC (3.8-10.6) k/uL RBC (3.80-5.40) m/uL Hgb (11.4-16.0) gm/dL Hct (34.0-46.0) % Sodium 132 L (137-145) mmol/L Chloride (98-107) mmol/L BUN 18 H (7-17) mg/dL POC Glucose (mg/dL) 115 H 171 H (70-110) mg/dL Calcium 8.2 L (8.4-10.2) mg/dL AST 167 H (14-36) U/L ALT 106 H (4-34) U/L Alkaline Phosphatase 215 H (38-126) U/L Total Protein 6.0 L (6.3-8.2) g/dL 05/28/22 05/29/22 05/29/22 Range/Units 20:17 05:51 05:51 WBC 13.5 H (3.8-10.6) k/uL RBC 3.17 L (3.80-5.40) m/uL Hgb 10.4 L (11.4-16.0) gm/dL Hct 30.0 L (34.0-46.0) % Sodium 132 L (137-145) mmol/L Chloride 97 L (98-107) mmol/L BUN 19 H (7-17) mg/dL POC Glucose (mg/dL) 150 H (70-110) mg/dL Calcium 8.3 L (8.4-10.2) mg/dL AST 108 H (14-36) U/L ALT 92 H (4-34) U/L Alkaline Phosphatase 267 H (38-126) U/L Total Protein 5.9 L (6.3-8.2) g/dL
[2022-05-29] MEDS: FUROSEMIDE 10 MG/ML 4 ML VIAL IV SCH ×2 (08:37→17:40)
[2022-05-29] MEDS: AMIODARONE 200 MG TAB PO SCH ×2 (08:38→21:12)
[2022-05-29] MEDS: METOPROLOL TARTRATE 25 MG TAB PO SCH ×2 (08:38→21:14)
[2022-05-29] MEDS: CLOPIDOGREL 75 MG TAB PO SCH (08:38)
[2022-05-29] MEDS: METOCLOPRAMIDE 5 MG/ML 2 ML VIAL IVP PRN (08:38)
[2022-05-29] MEDS: CITALOPRAM HYDROBROMIDE 20 MG TAB PO SCH ×2 (08:38→21:14)
[2022-05-29] MEDS: ASPIRIN 325 MG TAB PO SCH (08:38)
[2022-05-29] MEDS: ATORVASTATIN 40 MG TAB PO SCH (08:38)
[2022-05-29] MEDS: SYMBICORT 160-4.5 MCG INHALER INHALATION SCH ×2 (08:39→21:48)
[2022-05-29] MEDS: polyethylene glycoL 3350 17 GM POWD.PACK PO SCH (08:39)
[2022-05-29] MEDS: IPRATROPIUM-ALBUTEROL 3 ML NEB INHALATION SCH ×4 (08:39→21:48)
[2022-05-29] MEDS: SIMETHICONE 80 MG CHEWABLE PO SCH ×4 (08:39→21:15)
[2022-05-29 08:56] LABS: Appearance,Urine Clear (Clear); Bacteria,Urine Occasional /hpf; Bilirubin,Urine Negative (Negative); Blood,Urine Negative (Negative); Color,Urine Yellow; Glucose,Urine (UA) Negative (Negative); Hyaline Casts,Urine 8 /lpf (0-2); Ketones,Urine Negative (Negative); Leukocyte Esterase,Urine Large (Negative); Mucus,Urine Rare /hpf; Nitrite,Urine Negative (Negative); Protein,Urine Trace (Negative); RBC,Urine 5 /hpf (0-5); Specific Gravity,Urine 1.026 (1.001-1.035); Squamous Epithelial Cell,Urine 1 /hpf (0-4); Urobilinogen,Urine <2.0 mg/dL (<2.0); WBC,Urine 90 /hpf (0-5)
[2022-05-29] MEDS ORDERED: ACETAMINOPHEN TAB 325 MG TAB PO PRN (08:57)
--- NOTE | 2022-05-29 09:02 | P.PN ---
Subjective Progress Note Date: 05/29/22 Principal diagnosis: Severe rheumatic mitral valve stenosis with severe pulmonary hypertension, moderate mitral valve regurgitation, preserved left ventricular systolic function, moderate right ventricular dysfunction, moderate tricuspid valve regurgitation, acute on chronic diastolic heart failure, transaminitis. History of mild nonobstructive coronary artery disease, hypertension, hyperlipidemia, previous tobacco dependence with recent cessation, severe COPD, supraventricular tachycardia, depression, remote history of pneumonia, and family history of coronary artery disease POD #7 chordal preserving mitral valve replacement using a 27 mm Mosaic porcine bioprosthesis, tricuspid valve repair with ring annuloplasty using a 28 mm MC3 ring, exclusion of the left atrial appendage using a 35 mm AtriClip, intraoperative transesophageal echocardiogram and epi-aortic scanning Postoperative acute blood loss anemia, expected given hemodilution and cardiopulmonary bypass pump The patient was seen and examined with morning sitting up in a recliner intensive care unit in no acute distress eating breakfast. She continues to complain of some abdominal pain despite bowel movements daily, active bowel sounds. She does state this started prior to surgery and was occasionally happening at home. Denies chest pain or shortness of breath. Currently sinus rhythm with first-degree AV block, hemodynamically stable. Currently on room air with oxygen saturation in the mid 90s. Has ambulated in the hallway without difficulty and shower daily. She does complain this morning of burning with urination, WBC 13.5, remains afebrile. Urine sample will be sent. Otherwise no new concerns. Transfer orders were placed yesterday for cardiac stepdown unit, no bed availability. Plan was to send patient home with home care today, however patient does not feel ready to go home yet. Objective - Vital Signs Vital signs: Vital Signs Temp 97.6 F 05/29/22 07:58 Pulse 87 05/29/22 07:58 Resp 21 05/29/22 07:58 BP 116/75 05/29/22 07:58 Pulse Ox 92 L 05/29/22 07:58 FiO2 50 05/22/22 16:00 Intake & Output 05/28/22 05/29/22 05/29/22 18:59 06:59 18:59 Intake Total 1000 750 Output Total 1500 750 Balance -500 0 Weight 88.6 kg Intake: Oral 1000 750 Output: Urine 1500 750 Other: Voiding Method Bedside Commode Bedside Commode ABP, PAP, CO, CI - Last Documented Arterial Blood Pressure 104/53 Pulmonary Artery Pressure 50/20 Cardiac Output 3.9 Cardiac Index 2.1 - Exam CONSTITUTIONAL: Appears mostly comfortable, cooperative, no acute distress RESPIRATORY: Lungs sounds diminished bilaterally. Respirations even, nonlabored. Currently on room air with oxygen saturation 93%. Able to achieve 1000 mL on incentive spirometry. Strong nonproductive cough. CARDIOVASCULAR: S1, S2 present. Regular rate and rhythm, sinus rhythm with first-degree AV block on telemetry. Sternum stable. Palpable peripheral pulses bilaterally. Trace generalized edema present. No calf pain or tenderness noted. Heart hugger in place with patient demonstrating appropriate use. Antiembolism stockings, SCDs present. GASTROINTESTINAL: Abdomen soft, nontender, slightly distended. Tympanic to percussion. Active bowel sounds present 4 quadrants. Tolerating diet. Positive bowel movement daily GENITOURINARY: Continues to void clear, yellow urine INTEGUMENTARY: Skin is warm and dry with evidence of good perfusion. Anterior chest incision well approximated NEUROLOGIC: Cranial nerves II through XII intact MUSKULOSKELETAL: Able to move all extremities, strength equal bilaterally PSYCHIATRIC: Alert and oriented to person place and time, appropriate affect, intact judgment and insight - Allied health notes Allied health notes reviewed: nursing - Labs CBC & Chem 7: 05/29/22 05:51 05/29/22 05:51 Labs: Abnormal Lab Results - Last 24 Hours (Table) 05/28/22 05/28/22 05/28/22 Range/Units 11:33 16:44 20:17 WBC (3.8-10.6) k/uL RBC (3.80-5.40) m/uL Hgb (11.4-16.0) gm/dL Hct (34.0-46.0) % Sodium (137-145) mmol/L Chloride (98-107) mmol/L BUN (7-17) mg/dL POC Glucose (mg/dL) 115 H 171 H 150 H (70-110) mg/dL Calcium (8.4-10.2) mg/dL AST (14-36) U/L ALT (4-34) U/L Alkaline Phosphatase (38-126) U/L Total Protein (6.3-8.2) g/dL 05/29/22 05/29/22 Range/Units 05:51 05:51 WBC 13.5 H (3.8-10.6) k/uL RBC 3.17 L (3.80-5.40) m/uL Hgb 10.4 L (11.4-16.0) gm/dL Hct 30.0 L (34.0-46.0) % Sodium 132 L (137-145) mmol/L Chloride 97 L (98-107) mmol/L BUN 19 H (7-17) mg/dL POC Glucose (mg/dL) (70-110) mg/dL Calcium 8.3 L (8.4-10.2) mg/dL AST 108 H (14-36) U/L ALT 92 H (4-34) U/L Alkaline Phosphatase 267 H (38-126) U/L Total Protein 5.9 L (6.3-8.2) g/dL - Imaging and Cardiology Chest x-ray: report reviewed, image reviewed Assessment and Plan Assessment: 1. 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 Preserved left ventricular systolic function, moderate right ventricular dysfunction, EF 55-60% 3. Moderate tricuspid valve regurgitation, status post tricuspid valve repair 4. Acute on chronic diastolic heart failure 5. Transaminitis 6. History of mild nonobstructive coronary artery disease 7. Hypertension 8. Hyperlipidemia, treated, cholesterol 196, LDL 99, triglycerides 254 9. Previous tobacco dependence with recent cessation 10. Severe COPD, preoperative FEV1 42% of predicted 11. History of supraventricular tachycardia 12. Depression 13. Remote history of pneumonia 14. Family history of coronary artery disease 15. Postoperative acute blood loss anemia, expected Plan: 1. Continue to maximize medical therapy with aspirin, statin, Plavix, beta vince. 2. Continue amiodarone for A. fib prophylaxis 3. Encourage incentive spirometry 10 times every hour while awake. Bronchodilators per pulmonology 4. Increase activity as tolerated. PT/OT/cardiac rehab following. Shower daily 5. Will monitor daily labs and x-rays. Electrolyte replacement per protocol. Continue IV Lasix twice a day. Will send urinalysis with reflex culture 6. GI/DVT prophylaxis. Continue protonix BID, tums PRN 7. Pain control with current medication regimen. Avoid narcotics, Toradol added 8. Insulin management per internal medicine service. Preoperative hemoglobin A1c 6.4% 9. Strict accurate intake and output. Daily weights 10. Transfer orders for 3 S. cardiac stepdown unit placed yesterday, may transfer when bed available 11. Discharge planning in progress. Anticipate discharge to home with home care in 24-48 hours 12. More recommendations to follow
--- NOTE | 2022-05-29 09:32 | P.PN ---
Subjective Progress Note Date: 05/29/22 Principal diagnosis: ICU management. Reevaluated today on 05/23/22, patient is now postoperative day #1chordal preserving mitral valve replacement using a 27 mm Mosaic porcine bioprosthesis, tricuspid valve repair with ring annuloplasty using a 28 mm MC3 ring, exclusion of the left atrial appendage using a 35 mm AtriClip, intraoperative transesophageal echocardiogram and epi-aortic scanning. Patient was extubated last night around 7 PM, and she tolerated the extubation well. Patient remains in the ICU, denies any shortness of breath, she is in sinus rhythm, hemodynamically stable however she is still on low dose of Primacor, and amiodarone. No major issues over the last 12 hours. Patient is resting in a bedside chair, he is on few liters nasal cannula, chest x-ray showed minimal postoperative changes and atelectasis. Overall the patient is doing great. CBC is relatively normal hemoglobin is 9.4. Basic metabolic profile is normal. Cardiac output is 5.7, cardiac index is 3.1. CVP is 13. Reevaluated today on 05/24/22, patient remains in the ICU, she is on 3 L nasal cannula, she remains on Primacor at 0.1 mcg/kg/m, she is also on insulin 20 units per hour, IV fluid 0.9 normal saline at 20 mL per hour. Continues to have Mascot-Celso catheter in place, her PA pressures are 50/23 and CVP is 11. Continues to have right-sided chest tube and mediastinal chest tube. WBC count is 15.6 hemoglobin is 8. Basic metabolic profile is normal renal profile is normal. Chest x-ray this a.m. showed minimal left lower lobe atelectasis, and her Mascot-Celso catheter remains present Reevaluated today on 06/21/22, patient remains in the ICU, patient is postoperative day #3,chordal preserving mitral valve replacement using a 27 mm Mosaic porcine bioprosthesis, tricuspid valve repair with ring annuloplasty using a 28 mm MC3 ring, exclusion of the left atrial appendage using a 35 mm AtriClip, intraoperative transesophageal echocardiogram and epi-aortic scanning. Cardiac output remains marginal and the patient remains on Primacor, blood pressure is marginal, urine output is marginal and she is receiving Bumex. Pulmonary-kumar she is on 2 L nasal cannula, chest x-ray showed mostly by basilar atelectasis, no evidence of congestive heart failure. WBC count of 10 hemoglobin is 7, electrolytes are normal renal profile is normal. Cardiac output/cardiac index 4.1/2.2. CVP is 15. He a pressure 52/20 Progress note dated 05/27/2022. 61-year-old female postop day #5, post mitral valve replacement, tricuspid valve repair, and exclusion of left atrial appendage. Currently, the patient's on 2 L of oxygen. She's getting dopamine at 1 mcg/kg/m. She is getting saline at KVO. White count 8.7, hemoglobin 9.8, hematocrit 28.5, and platelet count 269,000. Sodium 132, with a normal potassium, chloride, CO2, anion gap, BUN, and creatinine. Chest x-ray shows postoperative changes, with small bilateral effusions. Progress note dated 05/28/2022. 61-year-old female postop day #6, status post mitral valve replacement, tricuspid valve repair, and exclusion of left atrial appendage. Currently, the patient's on room air. She's not receiving any IV fluids. She sitting in a chair of next to her bed. Yesterday, she was on 2 L and on a small dose of dopamine. She is on neither today. White count 11, hemoglobin 10.5, hematocrit 31.8, sodium 132, potassium 4.1, chlorides 100, CO2 23, BUN 18 and creatinine 0.65. Platelet count was normal at 201,000. Chest x-ray shows small effusions, and basilar atelectasis. Progress note dated 05/29/2022. 61-year-old female, postop day #7, status post mitral valve replacement, tricuspid valve repair, and exclusion of left atrial appendage. The patient is currently on room air. She's not receiving any IV fluids. He stable. She sitting up in a chair next to her bed. White count 13.5, hemoglobin 10.4, and p latelet count was normal. Sodium 132, potassium 4.1, chlorides 97, CO2 27, BUN 19, creatinine 0.68. Chest x-ray shows similar findings from yesterday, with very tiny bilateral effusions. Objective - Vital Signs Vital signs: Vital Signs Temp 97.6 F 05/29/22 07:58 Pulse 87 05/29/22 07:58 Resp 21 05/29/22 07:58 BP 116/75 05/29/22 07:58 Pulse Ox 92 L 05/29/22 07:58 FiO2 50 05/22/22 16:00 Intake & Output 05/28/22 05/29/22 05/29/22 18:59 06:59 18:59 Intake Total 1000 750 Output Total 1500 750 Balance -500 0 Weight 88.6 kg Intake: Oral 1000 750 Output: Urine 1500 750 Other: Voiding Method Bedside Commode Bedside Commode ABP, PAP, CO, CI - Last Documented Arterial Blood Pressure 104/53 Pulmonary Artery Pressure 50/20 Cardiac Output 3.9 Cardiac Index 2.1 - Exam No acute distress, oriented 3. Currently on room air. HEENT examination is grossly unremarkable. Neck supple. Full range of motion. No adenopathy thyromegaly or neck vein distention. Cardiovascular examination reveals regular rhythm rate. S1-S2 normal. No S3 or S4. No discernible murmur noted. Heart rate 82 bpm. Lungs reveal scattered bilateral rhonchi. No wheezes or crackles. Breath sounds equal bilaterally. Room air saturation 97 %. Abdomen soft bowel sounds are heard. No masses or tenderness. Extremities are intact. No cyanosis clubbing or edema. Skin is without rash or lesion. Neurologic examination is brief but nonfocal. - Labs CBC & Chem 7: 05/29/22 05:51 05/29/22 05:51 Labs: Abnormal Lab Results - Last 24 Hours (Table) 05/28/22 05/28/22 05/28/22 Range/Units 11:33 16:44 20:17 WBC (3.8-10.6) k/uL RBC (3.80-5.40) m/uL Hgb (11.4-16.0) gm/dL Hct (34.0-46.0) % Sodium (137-145) mmol/L Chloride (98-107) mmol/L BUN (7-17) mg/dL POC Glucose (mg/dL) 115 H 171 H 150 H (70-110) mg/dL Calcium (8.4-10.2) mg/dL AST (14-36) U/L ALT (4-34) U/L Alkaline Phosphatase (38-126) U/L Total Protein (6.3-8.2) g/dL Urine Protein (Negative) Ur Leukocyte Esterase (Negative) Urine WBC (0-5) /hpf Urine Bacteria (None) /hpf Hyaline Casts (0-2) /lpf Urine Mucus (None) /hpf 05/29/22 05/29/22 05/29/22 Range/Units 05:51 05:51 08:30 WBC 13.5 H (3.8-10.6) k/uL RBC 3.17 L (3.80-5.40) m/uL Hgb 10.4 L (11.4-16.0) gm/dL Hct 30.0 L (34.0-46.0) % Sodium 132 L (137-145) mmol/L Chloride 97 L (98-107) mmol/L BUN 19 H (7-17) mg/dL POC Glucose (mg/dL) (70-110) mg/dL Calcium 8.3 L (8.4-10.2) mg/dL AST 108 H (14-36) U/L ALT 92 H (4-34) U/L Alkaline Phosphatase 267 H (38-126) U/L Total Protein 5.9 L (6.3-8.2) g/dL Urine Protein Trace H (Negative) Ur Leukocyte Esterase Large H (Negative) Urine WBC 90 H (0-5) /hpf Urine Bacteria Occasional H (None) /hpf Hyaline Casts 8 H (0-2) /lpf Urine Mucus Rare H (None) /hpf Assessment and Plan Assessment: Postop day #7, status post mitral valve replacement, tricuspid valve repair, and exclusion of left atrial appendage. Routine postoperative ventilator management. Severe rheumatic mitral valve stenosis and severe pulmonary hypertension, with moderate mitral valve regurgitation. Chronic diastolic CHF. History of nonocclusive CAD. Hypertension. 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 History of supraventricular tachycardia. Postoperative blood loss. Postoperative atelectasis. Plan: Plan dated 05/27/2022. The patient appears to be doing relatively well. She is on 2 L. She's getting dopamine at 1 mcg/kg/m. She is resting comfortably. X-ray, labs, and medic ations are all reviewed. Follow the patient make recommendations along the way. We do encourage continued use of the incentive spirometer. Plan dated 05/28/2022. Today is postop day #6. The patient's currently on room air. Saturations are 98%. The patient's dopamine has been discontinued. Labs, x-rays, and medications are all reviewed. Clinically, the patient is well. She sitting up in a chair next to her bed. She denies any significant breathing issues. We encourage her to continue using the incentive spirometer, and also encourage her to deep breathe, cough, and clear secretions. Plan dated 05/29/2022. Today's postop day #7. The patient's on room air. Saturations are 97-98%. She continues on the incentive spirometer. Labs, x-rays, and medications are reviewed clinically, the patient's very stable. We will continue to follow make recommendations along the way. The patient is also a overflow patient over to 3 S. floor. Time with Patient: Less than 30
[2022-05-29 12:05] LABS: Glucose,Whole Blood 90 mg/dL (70-110)
[2022-05-29] MEDS ORDERED: CEPHALEXIN 500 MG CAP PO SCH (13:00)
--- NOTE | 2022-05-29 13:55 | P.PN ---
Subjective Progress Note Date: 05/29/22 Patient is a 61-year-old female with recently diagnosed rheumatic mitral valve disease with severe stenosis and regurg, severe pulmonary hypertension, and HTN who presented to the emergency room with complaints of shortness of breath, lower extremity edema, and abdominal distention. The patient was recently admitted to the hospital from 04/25-04/27 for similar complaints, at which time she was diagnosed with the above mitral valve disease. The patient was advised to follow-up as an outpatient for an elective mitral valve repair/replacement with cardiothoracic surgery. Upon arrival at the emergency room vital signs were within normal limits. Chest CTA revealed no evidence of PE with a right pleural effusion. EKG revealed sinus tachycardia with PVCs at [address]pm with no notable ST/T-wave changes noted as reviewed by me. Laboratory evaluation was remarkable for troponin of less than 0.012, proBNP 3870, AST 132, ALT 158, and alk phos 232 with a total bilirubin 1.4. She was admitted for acute exacerbation of right- sided heart failure in the setting of severe mitral valve disease. She was started on IV diuresis and cardiology was consulted. Cardiovascular surgery was also consulted. Patient underwent open heart surgery with mitral valve replacement, tricuspid valve repair, exclusion of the left atrial appendage with a 35mm atrial clip on 05/22. She was extubated on 05/22. Patient was seen and examined. No acute events overnight. She is POD 7. She reports abdominal bloating, nausea but no vomiting. Had a bowel movement this morning. General: nontoxic, no distress, appears at stated age Derm: warm, dry Head: atraumatic, normocephalic, symmetric Eyes: EOMI, no lid lag, anicteric sclera Mouth: no lip lesion, mucus membranes moist Cardiovascular: S1S2 reg, with murmur Lungs: Decreased BS bilateral, no rhonchi, no rales , no accessory muscle use Abd: Slightly distended, sluggish bowel sounds, non tender to palpation Ext: no gross muscle atrophy, trace edema, no contractures Neuro: no focal neuro deficits Psych: Alert, oriented, appropriate affect #Acute blood loss anemia -Expected result of surgery -s/p 2 unit PRBC -Continue to monitor #Hyponatremia, probably hypervolemic -Started on Lasix 20 mg IV BID -Improving -Daily BMP #Abdominal bloating #Constipation -KUB nonspecific -Zofran and Reglan PRN for N/V -Simethicone -Continue with bowel regimen #Acute exacerbation of right-sided heart failure, cor pulmonale in the setting of severe mitral valve disease #Severe mitral regurgitation with moderate to severe stenosis #Severe pulmonary hypertension #Nonobstructive coronary artery disease #Hypertension -Cardiothoracic surgery on board -Status post mitral valve replacement, tricuspid valve repair, exclusion of the left atrial appendage with a 35mm atrial clip 05/22 -Aspirin, Plavix, statin, beta vince -On Amiodarone for AFib prophylaxis -Strict I's and O's, daily weights #Transaminitis secondary to hepatic congestion -Improving with diuresis -Continue to monitor Resolved: Acute hypoxic respiratory failure, acute kidney injury, leukocytosis Objective - Vital Signs Vital signs: Vital Signs Temp 98.1 F 05/29/22 12:00 Pulse 80 05/29/22 12:00 Resp 18 05/29/22 12:00 BP 102/73 05/29/22 12:00 Pulse Ox 92 L 05/29/22 12:00 FiO2 50 05/22/22 16:00 Intake & Output 05/28/22 05/29/22 05/29/22 18:59 06:59 18:59 Intake Total 1000 750 500 Output Total 1500 750 400 Balance -500 0 100 Weight 88.6 kg Intake: Oral 1000 750 500 Output: Urine 1500 750 400 Other: Voiding Method Bedside Commode Bedside Commode Toilet ABP, PAP, CO, CI - Last Documented Arterial Blood Pressure 104/53 Pulmonary Artery Pressure 50/20 Cardiac Output 3.9 Cardiac Index 2.1 - Labs CBC & Chem 7: 05/29/22 05:51 05/29/22 05:51 Labs: Abnormal Lab Results - Last 24 Hours (Table) 05/28/22 05/28/22 05/29/22 Range/Units 16:44 20:17 05:51 WBC 13.5 H (3.8-10.6) k/uL RBC 3.17 L (3.80-5.40) m/uL Hgb 10.4 L (11.4-16.0) gm/dL Hct 30.0 L (34.0-46.0) % Sodium (137-145) mmol/L Chloride (98-107) mmol/L BUN (7-17) mg/dL POC Glucose (mg/dL) 171 H 150 H (70-110) mg/dL Calcium (8.4-10.2) mg/dL AST (14-36) U/L ALT (4-34) U/L Alkaline Phosphatase (38-126) U/L Total Protein (6.3-8.2) g/dL Urine Protein (Negative) Ur Leukocyte Esterase (Negative) Urine WBC (0-5) /hpf Urine Bacteria (None) /hpf Hyaline Casts (0-2) /lpf Urine Mucus (None) /hpf 05/29/22 05/29/22 Range/Units 05:51 08:30 WBC (3.8-10.6) k/uL RBC (3.80-5.40) m/uL Hgb (11.4-16.0) gm/dL Hct (34.0-46.0) % Sodium 132 L (137-145) mmol/L Chloride 97 L (98-107) mmol/L BUN 19 H (7-17) mg/dL POC Glucose (mg/dL) (70-110) mg/dL Calcium 8.3 L (8.4-10.2) mg/dL AST 108 H (14-36) U/L ALT 92 H (4-34) U/L Alkaline Phosphatase 267 H (38-126) U/L Total Protein 5.9 L (6.3-8.2) g/dL Urine Protein Trace H (Negative) Ur Leukocyte Esterase Large H (Negative) Urine WBC 90 H (0-5) /hpf Urine Bacteria Occasional H (None) /hpf Hyaline Casts 8 H (0-2) /lpf Urine Mucus Rare H (None) /hpf
[2022-05-29 16:59] LABS: Glucose,Whole Blood 135 mg/dL (70-110)
[2022-05-29] MEDS: KETOROLAC 15 MG/ML 1 ML VIAL IVP PRN (18:27)
[2022-05-29 20:59] LABS: Glucose,Whole Blood 137 mg/dL (70-110)
[2022-05-29] MEDS: SENNOSIDES-DOCUSATE SODIUM 1 EACH TAB PO SCH (21:14)
--- NOTE | 2022-05-29 23:37 | P.CONS ---
History of Present Illness - Reason for Consult Consult date: 05/29/22 - History of Present Illness Patient is a 61-year-old female with a past medical history taken for pulmonary hypertension mitral regurgitation as well as tricuspid regurgitation who was electively admitted to the hospital 2 weeks ago for mitral valve replacement as well as tricuspid valve repair that was successfully completed patient subsequently has been in the hospital recovering from her surgical procedure patient did have a Crespo catheter during the initial part of the stay however that has been discontinued however was not very clear when it was removed patient was noticed to have a elevated white count of 13.5 and the patient was complaining of slight burning of urine but no suprapubic or flank pain UA has been obtained which was positive she was started on Keflex infectious disease was consulted for further management of antibiotic therapy the patient has been afebrile during this hospital stay as mentioned earlier she did have white count 13.5 today patient did have normal kidney function liver enzymes are mildly elevated patient is currently on room air denies having any chest pain or shortness of breath or cough patient did have a chest x-ray completed this morning shows trace bilateral effusion similar to prior and the patient denies having any diarrhea and no problem with peripheral IV sites as reported by the nursing staff Past Medical History Past Medical History: Chest Pain / Angina, Heart Failure, Hypertension, Pneumonia, Supraventricular Tachycardia (SVT) Additional Past Medical History / Comment(s): migraines, bronchitis, H. pylori, severe mitral valve regurgitation with thickened mitral valve with restricted leaflet mobility, severe pulmonary hypertension with an RSVP of 86 mmHg. 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 Past Anesthesia/Blood Transfusion Reactions: No Reported Reaction Past Psychological History: Depression Smoking Status: Former smoker (As quit smoking for around 3 weeks.) Past Alcohol Use History: None Reported Past Drug Use History: None Reported Additional Drug Use History / Comment(s): stopped smoking 04/2022 - Past Family History Mother Family Medical History: Coronary Artery Disease (CAD) Additional Family Medical History / Comment(s): Mother is still alive at 79 years old Father Family Medical History: Cancer, Diabetes Mellitus Additional Family Medical History / Comment(s): Father is still alive at 82 y ears familyi Family Medical History: Coronary Artery Disease (CAD) Additional Family Medical History / Comment(s): heart disease Medications and Allergies Home Medications Medication Instructions Recorded Confirmed Type Citalopram Hydrobromide [CeleXA] 20 mg PO BID 04/07/22 05/15/22 History HYDROcodone/APAP 7.5-325MG [[place] 1 tab PO QID PRN 04/07/22 05/15/22 History 7.5-325] clonazePAM [KlonoPIN] 0.5 mg PO BID PRN 04/07/22 05/15/22 History Aspirin 81 mg PO DAILY 90 Days #90 tab 04/27/22 05/15/22 Rx Atorvastatin [Lipitor] 20 mg PO DAILY 30 Days #30 tab 04/27/22 05/15/22 Rx Furosemide [Lasix] 20 mg PO DAILY 30 Days #30 tab 04/27/22 05/15/22 Rx Metoprolol Tartrate 25 mg PO BID 30 Days #60 tab 04/27/22 05/15/22 Rx Potassium Chloride ER [K-Dur 10] 10 meq PO DAILY 30 Days #30 tab 04/27/22 05/15/22 Rx Nicotine 14Mg/24Hr Patch [Habitrol] 1 patch TRANSDERM DAILY PRN 05/15/22 05/15/22 History Allergies Allergy/AdvReac Type Severity Reaction Status Date / Time adhesive tape AdvReac Itching Verified 05/15/22 22:13 risperidone [From Risperdal] AdvReac SPASMS, Verified 05/15/22 17:44 AGGITATION Physical Exam Vitals: Vital Signs Temp Pulse Pulse Resp BP Pulse Ox 05/29/22 12:00 98.1 F 80 18 102/73 92 L 05/29/22 07:58 97.6 F 87 21 116/75 92 L 05/29/22 04:00 97.4 F L 81 18 119/72 97 05/29/22 00:00 97.5 F L 68 18 118/72 97 05/28/22 20:44 87 05/28/22 20:33 86 05/28/22 20:00 97.7 F 78 18 102/54 98 05/28/22 16:00 98.1 F 82 19 111/83 94 L 05/28/22 15:57 80 05/28/22 15:47 79 Intake and Output 1205/29/22 05/29/22 06:59 14:59 22:59 Intake Total 750 750 Output Total 750 800 Balance 0 -50 Intake: Oral 750 750 Output: Urine 750 800 Other: Voiding Method Bedside Commode Toilet Weight 88.6 kg Results CBC & Chem 7: 05/29/22 05:51 05/29/22 05:51 Labs: Abnormal Lab Results - Last 24 Hours (Table) 05/28/22 05/28/22 05/29/22 Range/Units 16:44 20:17 05:51 WBC 13.5 H (3.8-10.6) k/uL RBC 3.17 L (3.80-5.40) m/uL Hgb 10.4 L (11.4-16.0) gm/dL Hct 30.0 L (34.0-46.0) % Sodium (137-145) mmol/L Chloride (98-107) mmol/L BUN (7-17) mg/dL POC Glucose (mg/dL) 171 H 150 H (70-110) mg/dL Calcium (8.4-10.2) mg/dL AST (14-36) U/L ALT (4-34) U/L Alkaline Phosphatase (38-126) U/L Total Protein (6.3-8.2) g/dL Urine Protein (Negative) Ur Leukocyte Esterase (Negative) Urine WBC (0-5) /hpf Urine Bacteria (None) /hpf Hyaline Casts (0-2) /lpf Urine Mucus (None) /hpf 05/29/22 05/29/22 Range/Units 05:51 08:30 WBC (3.8-10.6) k/uL RBC (3.80-5.40) m/uL Hgb (11.4-16.0) gm/dL Hct (34.0-46.0) % Sodium 132 L (137-145) mmol/L Chloride 97 L (98-107) mmol/L BUN 19 H (7-17) mg/dL POC Glucose (mg/dL) (70-110) mg/dL Calcium 8.3 L (8.4-10.2) mg/dL AST 108 H (14-36) U/L ALT 92 H (4-34) U/L Alkaline Phosphatase 267 H (38-126) U/L Total Protein 5.9 L (6.3-8.2) g/dL Urine Protein Trace H (Negative) Ur Leukocyte Esterase Large H (Negative) Urine WBC 90 H (0-5) /hpf Urine Bacteria Occasional H (None) /hpf Hyaline Casts 8 H (0-2) /lpf Urine Mucus Rare H (None) /hpf Assessment and Plan Plan: 1patient with elevated white count possibly related to the UTI in this patient who do have a urinary symptoms and did have risk factors of Crespo catheter during this hospital stay will need to cover for the enteric gram-negative to be the likely pathogen. 2discontinue Keflex. 3we will start the patient on Rocephin 2 g daily while waiting for the culture to finalize. We will follow on clinical condition and cultures to further adjust medication if needed Thank you for this consultation will follow this patient along with you Time with Patient: Greater than 30
[2022-05-30] MEDS: HEPARIN SODIUM,PORCINE/PF 5,000 UNIT/0.5 ML SYRINGE SQ SCH ×4 (00:01→23:21)
[2022-05-30] MEDS: CALCIUM CARBONATE 500 MG CHEWABLE PO PRN ×3 (01:38→23:21)
[2022-05-30] MEDS: HYDROcodone/APAP 7.5-325MG 1 EACH TAB PO PRN ×4 (03:29→21:38)
[2022-05-30 06:22] LABS: Glucose,Whole Blood 113 mg/dL (70-110)
[2022-05-30 06:25] LABS: HCT 30.3 % (34.0-46.0); HGB 10.2 gm/dL (11.4-16.0); MCH 32.1 pg (25.0-35.0); MCHC 33.8 g/dL (31.0-37.0); Mean Platelet Volume 8.7; Platelet Count 271 k/uL (150-450); RBC 3.18 m/uL (3.80-5.40); RDW 15.5 % (11.5-15.5); WBC 13.3 k/uL (3.8-10.6)
[2022-05-30] MEDS: ASCORBIC ACID 500 MG TAB PO SCH ×2 (06:33→16:41)
[2022-05-30] MEDS: PANTOPRAZOLE 40 MG TABLET PO SCH ×2 (06:33→16:41)
[2022-05-30 06:35] LABS: African American GFR (CKD) >90 (>60 ml/min/1.73 sqM); Anion Gap 8 mmol/L; Blood Urea Nitrogen 20 mg/dL (7-17); Carbon Dioxide 28 mmol/L (22-30); Chloride 95 mmol/L (98-107); Glucose 105 mg/dL (74-99); Magnesium 1.7 mg/dL (1.6-2.3); Non-African American GFR(CKD) >90 (>60 ml/min/1.73 sqM); Potassium 3.9 mmol/L (3.5-5.1); Sodium 131 mmol/L (137-145)
[2022-05-30] MEDS: INSULIN ASPART (NovoLOG) 100 UNIT/ML VIAL SQ SCH ×4 (06:49→21:35)
--- NOTE | 2022-05-30 08:07 | P.PN ---
Subjective Progress Note Date: 05/30/22 Principal diagnosis: Valvular heart disease The patient is a pleasant 61-year-old female patient who is known to have valvular heart disease who underwent mitral valve replacement and tricuspid valve repair. She's also does have pulmonary hypertension likely to be the unit show group to pulmonary hypertension secondary to valvular heart disease and left side disease. May [id number] She was evaluated this morning. She remains a stable from the cardiovascular standpoint of view. She is on dual antiplatelet therapy which is an intermediate intensity statin. Chest x-ray was reviewed this morning and seems to be stable. From a cardiovascular standpoint of view, we'll continue the current medical regimen and continue monitor the kidney function and electrolytes and follow-up with the patient May [id number] The patient was seen and evaluated this morning. She seems stable from a cardiovascular standpoint of view. She continues to be in sinus rhythm with a long first-degree AV block. From the cardiovascular standpoint of view, we'll continue the current medical regimen and taper down the dose of amiodarone and continue dual antiplatelet therapy along with a statin and follow-up with the patient. Continue monitor the kidney function as well as electrolytes. May 292021 The patient was seen and evaluated this morning. The patient seems to be stable from a cardiovascular standpoint of view. She remains in sinus rhythm with first-degree AV block. Overall she is doing well. At this point we'll continue the current medical regimen including the current medical regimen and follow-up with the patient. The patient potentially can be transferred out of the intensive care unit 05/30/2022 The patient was seen and evaluated this morning if she remains stable from a perivascular standpoint overview. Her main issues has been is abdominal bloating. That has been worked up by the primary care team. Otherwise she seems to be stable cardiac kumar pH she continues to be in sinus rhythm with first-degree AV block. From the cardiac standpoint of view, the patient can be transferred out of the intensive care unit. Objective - Vital Signs Vital signs: Vital Signs Temp 97.7 F 05/30/22 04:00 Pulse 78 05/30/22 04:00 Resp 15 05/30/22 04:00 BP 112/79 05/30/22 04:00 Pulse Ox 95 05/30/22 04:00 FiO2 50 05/22/22 16:00 Intake & Output 1205/30/22 05/30/22 18:59 06:59 18:59 Intake Total 1300 Output Total 1000 700 Balance 300 -700 Weight 88.6 kg 89.4 kg Intake: IV 50 cefTRIAXone 2 gm In 50 Sodium Chloride 0.9% 50 ml @ 100 mls/hr IVPB Q24H [facility] Rx#:[id number] Oral 1250 Output: Urine 1000 700 Other: Voiding Method Toilet Toilet # Bowel Movements 1 1 ABP, PAP, CO, CI - Last Documented Arterial Blood Pressure 104/53 Pulmonary Artery Pressure 50/20 Cardiac Output 3.9 Cardiac Index 2.1 - Constitutional General appearance: Present: no acute distress - Respiratory Respiratory: bilateral: diminished - Cardiovascular Rhythm: regular - Labs CBC & Chem 7: 05/30/22 05:14 05/30/22 05:14 Labs: Abnormal Lab Results - Last 24 Hours (Table) 05/29/22 05/29/22 05/29/22 Range/Units 08:30 16:57 20:57 WBC (3.8-10.6) k/uL RBC (3.80-5.40) m/uL Hgb (11.4-16.0) gm/dL Hct (34.0-46.0) % Sodium (137-145) mmol/L Chloride (98-107) mmol/L BUN (7-17) mg/dL Glucose (74-99) mg/dL POC Glucose (mg/dL) 135 H 137 H (70-110) mg/dL Calcium (8.4-10.2) mg/dL Urine Protein Trace H (Negative) Ur Leukocyte Esterase Large H (Negative) Urine WBC 90 H (0-5) /hpf Urine Bacteria Occasional H (None) /hpf Hyaline Casts 8 H (0-2) /lpf Urine Mucus Rare H (None) /hpf 05/30/22 05/30/22 05/30/22 Range/Units 05:14 05:14 06:21 WBC 13.3 H (3.8-10.6) k/uL RBC 3.18 L (3.80-5.40) m/uL Hgb 10.2 L (11.4-16.0) gm/dL Hct 30.3 L (34.0-46.0) % Sodium 131 L (137-145) mmol/L Chloride 95 L (98-107) mmol/L BUN 20 H (7-17) mg/dL Glucose 105 H (74-99) mg/dL POC Glucose (mg/dL) 113 H (70-110) mg/dL Calcium 8.0 L (8.4-10.2) mg/dL Urine Protein (Negative) Ur Leukocyte Esterase (Negative) Urine WBC (0-5) /hpf Urine Bacteria (None) /hpf Hyaline Casts (0-2) /lpf Urine Mucus (None) /hpf Microbiology - Last 24 Hours (Table) 05/29/22 08:30 Urine Culture - Preliminary Urine,Voided Assessment and Plan Assessment: Assessment Valvular heart disease Status post mitral valve replacement and tricuspid valve repair Multiple comorbid conditions Plan Continue the current medical regimen Continue dual antiplatelet therapy Continue intermediate intensity statin Taper down the dose of amiodarone
[2022-05-30] MEDS: SIMETHICONE 80 MG CHEWABLE PO SCH ×4 (08:24→21:39)
[2022-05-30] MEDS: IPRATROPIUM-ALBUTEROL 3 ML NEB INHALATION SCH ×4 (08:24→20:48)
[2022-05-30] MEDS: SYMBICORT 160-4.5 MCG INHALER INHALATION SCH ×2 (08:24→20:48)
[2022-05-30] MEDS: ATORVASTATIN 40 MG TAB PO SCH (08:25)
[2022-05-30] MEDS: AMIODARONE 200 MG TAB PO SCH ×2 (08:25→21:39)
[2022-05-30] MEDS: ASPIRIN 325 MG TAB PO SCH (08:25)
[2022-05-30] MEDS: polyethylene glycoL 3350 17 GM POWD.PACK PO SCH (08:26)
[2022-05-30] MEDS: METOPROLOL TARTRATE 25 MG TAB PO SCH ×2 (08:26→21:38)
[2022-05-30] MEDS: CITALOPRAM HYDROBROMIDE 20 MG TAB PO SCH ×2 (08:26→21:38)
[2022-05-30] MEDS: CLOPIDOGREL 75 MG TAB PO SCH (08:26)
[2022-05-30] MEDS: FUROSEMIDE 10 MG/ML 4 ML VIAL IV SCH ×2 (08:26→16:41)
[2022-05-30] MEDS ORDERED: metOLazone 2.5 MG TAB PO SCH (09:00)
[2022-05-30] MEDS ORDERED: POTASSIUM CHLORIDE ER 20 MEQ TAB.ER PO STA (09:07)
--- NOTE | 2022-05-30 09:53 | XR ---
EXAMINATION TYPE: XR chest 2V DATE OF EXAM: 05/30/2022 COMPARISON: 05/29/2022 HISTORY: 61 year-old female post cardiac surgery TECHNIQUE: PA and lateral views FINDINGS: Median sternotomy wires are present with post-CABG. Annuloplasty ring is noted. Heart mildly enlarged . Diffuse interstitial density. Small bilateral pleural effusions persist, slightly increased. Patchy right lower lung density also increased. IMPRESSION: Small bilateral pleural effusions with adjacent atelectasis and/or consolidation, increased now on th e right. There may be background mild pulmonary vascular congestion. Clinically correlate.
--- NOTE | 2022-05-30 10:11 | P.PN ---
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 Past medical history significant for pulmonary hypertension with a recent RVSP 86 mmHg, mild nonobstructive coronary artery disease by heart catheterization to her circumflex coronary artery, hypertension, chronic tobacco abuse although has not smoked in 3 weeks, COPD with a previous pulmonary function test showing an FEV1 of 42% of predicted value with a base volume of 1.04 L, history of SVT, remote history of pneumonia, history of depression and family history of coronary artery disease. POD #8 chordal preserving mitral valve replacement using a 27 mm Mosaic porcine bioprosthesis, tricuspid valve repair with ring annuloplasty using a 28 mm MC3 ring, exclusion of the left atrial appendage using a 35 mm AtriClip, intraoperat greyson transesophageal echocardiogram and epi-aortic scanning Postoperative acute blood loss anemia, expected given hemodilution and cardiopulmonary bypass pump. The patient was seen and examined in follow-up today 05/30/2022 at her bedside in the intensive care unit. Currently she is sitting up to bedside chair, is awake, alert, oriented 3 and is in no acute apparent distress. Denies any complaints of shortness of breath, although is complaining of some abdominal distention, discomfort and bloating. She reports she has been having bowel movements the last 2 days and denies any diarrhea, nausea or vomiting. Oxygen saturation are 95% on room air and she is achieving 1000 mL on her incentive spirometry with encouragement. Bedside telemetry showing normal sinus rhythm with a first-degree AV block heart rate 84 BPM. She has been afebrile the last 24 hours. Laboratory results this morning show a WBC count of 13.3, hemoglobin 10.2, hematocrit 30.3, platelets 271, sodium 131, potassium 3.9, CO2 28, BUN 20, creatinine 0.70, calcium 8.0 magnesium 1.7. She was started on Lasix 40 mg IV twice a day yesterday for increased edema to her bilateral lower extremities. She continues to complain of some burning with urination, urine culture results remain pending. She was initiated on Rocephin 2 g IV piggyback every 24 hours for possible UTI. Chest x-ray was reviewed. Objective - Vital Signs Vital signs: Vital Signs Temp 97.7 F 12/08/22 04:00 Pulse 86 05/30/22 08:35 Resp 15 05/30/22 04:00 BP 112/79 05/30/22 04:00 Pulse Ox 95 05/30/22 04:00 FiO2 50 05/22/22 16:00 Intake & Output 05/29/22 05/30/22 05/30/22 18:59 06:59 18:59 Intake Total 1300 Output Total 1000 700 Balance 300 -700 Weight 88.6 kg 89.4 kg Intake: IV 50 cefTRIAXone 2 gm In 50 Sodium Chloride 0.9% 50 ml @ 100 mls/hr IVPB Q24H [facility] Rx#:[id number] Oral 1250 Output: Urine 1000 700 Other: Voiding Method Toilet Toilet # Bowel Movements 1 1 ABP, PAP, CO, CI - Last Documented Arterial Blood Pressure 104/53 Pulmonary Artery Pressure 50/20 Cardiac Output 3.9 Cardiac Index 2.1 - Exam CONSTITUTIONAL: Sitting up to the bedside chair in the intensive care unit, appears comfortable, cooperative, no apparent acute distress. HEENT: Neck is supple, no JVD, no lymphadenopathy. RESPIRATORY: Lungs sounds essentially clear throughout, diminished to her bilateral bases. Respirations are symmetrical and nonlabored. Currently on room air oxygen saturations 95%. Able to achieve 1000 mL on her incentive spirometry. Strong cough. CARDIOVASCULAR: Regular rhythm and rate. S1 and S2 present, negative for S3, gallop or murmur. Sternum is stable. Palpable peripheral pulses bilaterally, +1 to +2 edema to her bilateral lower extremities. No calf pain or tenderness noted. Heart hugger in place with patient demonstrating appropriate use. Knee- high MARIAM hose and sequential compression devices in place to his bilateral lower extremities. GASTROINTESTINAL: Abdomen soft, nontender, distended. Active bowel sounds present 4 quadrants. Tolerating diet. Passing flatus. No guarding or rigidity. Bowel movement yesterday 05/29/2022. GENITOURINARY: Continues to void. 300 mL output last 8 hours. INTEGUMENTARY: Skin is warm and dry with no evidence of clubbing or cyanosis. Midline sternal incision clean dry and well approximated, covered with dry in tact dressing. NEUROLOGIC: Cranial nerves II through XII intact. No focal deficits. MUSKULOSKELETAL: Able to move all extremities, strength equal bilaterally. PSYCHIATRIC: Alert and oriented to person place and time, appropriate affect, intact judgment and insight. - Allied health notes Allied health notes reviewed: nursing - Labs CBC & Chem 7: 05/30/22 05:14 05/30/22 05:14 Labs: Abnormal Lab Results - Last 24 Hours (Table) 05/29/22 05/29/22 05/30/22 Range/Units 16:57 20:57 05:14 WBC 13.3 H (3.8-10.6) k/uL RBC 3.18 L (3.80-5.40) m/uL Hgb 10.2 L (11.4-16.0) gm/dL Hct 30.3 L (34.0-46.0) % Sodium (137-145) mmol/L Chloride (98-107) mmol/L BUN (7-17) mg/dL Glucose (74-99) mg/dL POC Glucose (mg/dL) 135 H 137 H (70-110) mg/dL Calcium (8.4-10.2) mg/dL 05/30/22 05/30/22 Range/Units 05:14 06:21 WBC (3.8-10.6) k/uL RBC (3.80-5.40) m/uL Hgb (11.4-16.0) gm/dL Hct (34.0-46.0) % Sodium 131 L (137-145) mmol/L Chloride 95 L (98-107) mmol/L BUN 20 H (7-17) mg/dL Glucose 105 H (74-99) mg/dL POC Glucose (mg/dL) 113 H (70-110) mg/dL Calcium 8.0 L (8.4-10.2) mg/dL Microbiology - Last 24 Hours (Table) 05/29/22 08:30 Urine Culture - Preliminary Urine,Voided - Imaging and Cardiology Chest x-ray: report reviewed, image reviewed Assessment and Plan Assessment: 1. 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 Preserved left ventricular systolic function, moderate right ventricular dysfunction, EF 55-60% 3. Moderate tricuspid valve regurgitation, status post tricuspid valve repair 4. Acute on chronic diastolic heart failure 5. Transaminitis 6. History of mild nonobstructive coronary artery disease 7. Hypertension 8. Hyperlipidemia, treated, cholesterol 196, LDL 99, triglycerides 254 9. Previous tobacco dependence with recent cessation 10. Severe COPD, preoperative FEV1 42% of predicted 11. History of supraventricular tachycardia 12. Depression 13. Remote history of pneumonia 14. Family history of coronary artery disease 15. Postoperative acute blood loss anemia, expected Plan: 1. Continue to maximize medical therapy with aspirin, statin, Plavix, beta vince. 2. Continue amiodarone 200 mg by mouth twice a day for A. fib prophylaxis. 3. Encourage incentive spirometry use 10 times every hour while awake. Bronchodilators per pulmonology/critical care management. 4. Increase activity as tolerated. PT/OT/cardiac rehab following. Shower daily. 5. Will monitor daily labs and chest x-rays. Electrolyte replacement per protocol. Continue IV Lasix twice a day. Zaroxolyn 2.5 mg by mouth 1 now. Potassium chloride 20 mEq by mouth 1 now. 6. GI/DVT prophylaxis. Continue protonix BID, tums PRN. 7. Pain control with current medication regimen. Avoid narcotics, Toradol added 8. Insulin management per internal medicine service. Preoperative hemoglobin A1c 6.4% 9. Strict accurate intake and output. Daily weights 10. Transfer orders for 3 S. cardiac stepdown unit when bed available. 11. Discharge planning in progress. Anticipate discharge to home with home care in 24 hours. 12. Urine culture results remain pending. Currently on Rocephin 2 g IV piggyback every 24 hours for impaired coverage. 13. Consult Dr. Clement from general surgery to evaluate abdominal distention and bloating. XR KUB portable from 05/26/2022 showed nonacute abdomen. 14. More recommendations to follow based on patient's clinical course Time with Patient: Greater than 30
[2022-05-30] MEDS: bisacodyL 10 MG SUPP RECTAL PRN (10:29)
--- NOTE | 2022-05-30 10:55 | P.PN ---
Subjective Progress Note Date: 05/30/22 Principal diagnosis: ICU management. Reevaluated today on 05/23/22, patient is now postoperative day #1chordal preserving mitral valve replacement using a 27 mm Mosaic porcine bioprosthesis, tricuspid valve repair with ring annuloplasty using a 28 mm MC3 ring, exclusion of the left atrial appendage using a 35 mm AtriClip, intraoperative transesophageal echocardiogram and epi-aortic scanning. Patient was extubated last night around 7 PM, and she tolerated the extubation well. Patient remains in the ICU, denies any shortness of breath, she is in sinus rhythm, hemodynamically stable however she is still on low dose of Primacor, and amiodarone. No major issues over the last 12 hours. Patient is resting in a bedside chair, he is on few liters nasal cannula, chest x-ray showed minimal postoperative changes and atelectasis. Overall the patient is doing great. CBC is relatively normal hemoglobin is 9.4. Basic metabolic profile is normal. Cardiac output is 5.7, cardiac index is 3.1. CVP is 13. Reevaluated today on 05/24/22, patient remains in the ICU, she is on 3 L nasal cannula, she remains on Primacor at 0.1 mcg/kg/m, she is also on insulin 20 units per hour, IV fluid 0.9 normal saline at 20 mL per hour. Continues to have [place] catheter in place, her PA pressures are 50/23 and CVP is 11. Continues to have right-sided chest tube and mediastinal chest tube. WBC count is 15.6 hemoglobin is 8. Basic metabolic profile is normal renal profile is normal. Chest x-ray this a.m. showed minimal left lower lobe atelectasis, and her [place] catheter remains present Reevaluated today on 06/21/22, patient remains in the ICU, patient is postoperative day #3,chordal preserving mitral valve replacement using a 27 mm Mosaic porcine bioprosthesis, tricuspid valve repair with ring annuloplasty using a 28 mm MC3 ring, exclusion of the left atrial appendage using a 35 mm AtriClip, intraoperative transesophageal echocardiogram and epi-aortic scanning. Cardiac output remains marginal and the patient remains on Primacor, blood pressure is marginal, urine output is marginal and she is receiving Bumex. Pulmonary-kumar she is on 2 L nasal cannula, chest x-ray showed mostly by basilar atelectasis, no evidence of congestive heart failure. WBC count of 10 hemoglobin is 7, electrolytes are normal renal profile is normal. Cardiac output/cardiac index 4.1/2.2. CVP is 15. He a pressure 52/20 Progress note dated 05/27/2022. 61-year-old female postop day #5, post mitral valve replacement, tricuspid valve repair, and exclusion of left atrial appendage. Currently, the patient's on 2 L of oxygen. She's getting dopamine at 1 mcg/kg/m. She is getting saline at KVO. White count 8.7, hemoglobin 9.8, hematocrit 28.5, and platelet count 269,000. Sodium 132, with a normal potassium, chloride, CO2, anion gap, BUN, and creatinine. Chest x-ray shows postoperative changes, with small bilateral effusions. Progress note dated 05/28/2022. 61-year-old female postop day #6, status post mitral valve replacement, tricuspid valve repair, and exclusion of left atrial appendage. Currently, the patient's on room air. She's not receiving any IV fluids. She sitting in a chair of next to her bed. Yesterday, she was on 2 L and on a small dose of dopamine. She is on neither today. White count 11, hemoglobin 10.5, hematocrit 31.8, sodium 132, potassium 4.1, chlorides 100, CO2 23, BUN 18 and creatinine 0.65. Platelet count was normal at 201,000. Chest x-ray shows small effusions, and basilar atelectasis. Progress note dated 05/29/2022. 61-year-old female, postop day #7, status post mitral valve replacement, tricuspid valve repair, and exclusion of left atrial appendage. The patient is currently on room air. She's not receiving any IV fluids. He stable. She sitting up in a chair next to her bed. White count 13.5, hemoglobin 10.4, and p latelet count was normal. Sodium 132, potassium 4.1, chlorides 97, CO2 27, BUN 19, creatinine 0.68. Chest x-ray shows similar findings from yesterday, with very tiny bilateral effusions. Progress note dated 05/30/2022. 61-year-old female, postop day #8, status post mitral valve replacement, tric uspid valve repair, and exclusion of left atrial appendage. She is on room air. Not receiving any IV fluids. She's complaining this morning of abdominal distention. White count 13.3, hemoglobin 10.2, hematocrit 30.3, platelet count normal. Sodium 131, potassium 3.9, chlorides 95, CO2 28, BUN 20, creatinine 0.7. Chest x-ray shows small bilateral effusions, with some mild basilar atelectasis. Objective - Vital Signs Vital signs: Vital Signs Temp 96.7 F L 05/30/22 08:00 Pulse 86 05/30/22 08:35 Resp 20 05/30/22 08:00 BP 110/66 05/30/22 08:00 Pulse Ox 96 05/30/22 08:00 FiO2 50 05/22/22 16:00 Intake & Output 05/29/22 05/30/22 05/30/22 18:59 06:59 18:59 Intake Total 1300 200 Output Total 7338 580 2479 Balance 300 -700 -800 Weight 88.6 kg 89.4 kg Intake: IV 50 cefTRIAXone 2 gm In 50 Sodium Chloride 0.9% 50 ml @ 100 mls/hr IVPB Q24H [facility] Rx#:[id number] Oral 1250 200 Output: Urine 9107 470 [id number] Other: Voiding Method Toilet Toilet # Voids 2 # Bowel Movements 1 1 ABP, PAP, CO, CI - Last Documented Arterial Blood Pressure 104/53 Pulmonary Artery Pressure 50/20 Cardiac Output 3.9 Cardiac Index 2.1 - Exam No acute distress, oriented 3. Currently on room air. HEENT examination is grossly unremarkable. Neck supple. Full range of motion. No adenopathy thyromegaly or neck vein distention. Cardiovascular examination reveals regular rhythm rate. S1-S2 normal. No S3 or S4. No discernible murmur noted. Heart rate 86 bpm. Lungs reveal scattered bilateral rhonchi. No wheezes or crackles. Breath sounds equal bilaterally. Room air saturation 96 %. Abdomen distended, and tympanitic. Bowel sounds are noted. No masses. Minimal tenderness. Extremities are intact. No cyanosis clubbing or edema. Skin is without rash or lesion. Neurologic examination is brief but nonfocal. - Labs CBC & Chem 7: 05/30/22 05:14 05/30/22 05:14 Labs: Abnormal Lab Results - Last 24 Hours (Table) 05/29/22 05/29/22 05/30/22 Range/Units 16:57 20:57 05:14 WBC 13.3 H (3.8-10.6) k/uL RBC 3.18 L (3.80-5.40) m/uL Hgb 10.2 L (11.4-16.0) gm/dL Hct 30.3 L (34.0-46.0) % Sodium (137-145) mmol/L Chloride (98-107) mmol/L BUN (7-17) mg/dL Glucose (74-99) mg/dL POC Glucose (mg/dL) 135 H 137 H (70-110) mg/dL Calcium (8.4-10.2) mg/dL 05/30/22 05/30/22 Range/Units 05:14 06:21 WBC (3.8-10.6) k/uL RBC (3.80-5.40) m/uL Hgb (11.4-16.0) gm/dL Hct (34.0-46.0) % Sodium 131 L (137-145) mmol/L Chloride 95 L (98-107) mmol/L BUN 20 H (7-17) mg/dL Glucose 105 H (74-99) mg/dL POC Glucose (mg/dL) 113 H (70-110) mg/dL Calcium 8.0 L (8.4-10.2) mg/dL Microbiology - Last 24 Hours (Table) 05/29/22 08:30 Urine Culture - Preliminary Urine,Voided Assessment and Plan Assessment: Postop day #8, status post mitral valve replacement, tricuspid valve repair, and exclusion of left atrial appendage. Routine postoperative ventilator management. Severe rheumatic mitral valve stenosis and severe pulmonary hypertension, with moderate mitral valve regurgitation. Chronic diastolic CHF. History of nonocclusive CAD. Hypertension. 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 History of supraventricular tachycardia. Postoperative blood loss. Postoperative atelectasis. Plan: Plan dated 05/27/2022. The patient appears to be doing relatively well. She is on 2 L. She's getting dopamine at 1 mcg/kg/m. She is resting comfortably. X-ray, labs, and medications are all reviewed. Follow the patient make recommendations along the way. We do encourage continued use of the incentive spirometer. Plan dated 05/28/2022. Today is postop day #6. The patient's currently on room air. Saturations are 98%. The patient's dopamine has been discontinued. Labs, x-rays, and medic ations are all reviewed. Clinically, the patient is well. She sitting up in a chair next to her bed. She denies any significant breathing issues. We encourage her to continue using the incentive spirometer, and also encourage her to deep breathe, cough, and clear secretions. Plan dated 05/29/2022. Today's postop day #7. The patient's on room air. Saturations are 97-98%. She continues on the incentive spirometer. Labs, x-rays, and medications are reviewed clinically, the patient's very stable. We will continue to follow make recommendations along the way. The patient is also a overflow patient over to 3 S. floor. Plan dated 05/30/2022. Today's postop day #8. Overnight, the patient did develop some abdominal distention. Her abdomen is firm. X-ray shows some basilar atelectasis and small effusions. Labs, x-rays, and medications are reviewed. The patient's on room air. She is not receiving any IV fluids. We will continue to follow make recommendations along the way. Time with Patient: Less than 30
[2022-05-30 11:25] LABS: Glucose,Whole Blood 117 mg/dL (70-110)
--- NOTE | 2022-05-30 11:43 | P.PN ---
Subjective Progress Note Date: 05/30/22 Patient is a 61-year-old female with recently diagnosed rheumatic mitral valve disease with severe stenosis and regurg, severe pulmonary hypertension, and HTN who presented to the emergency room with complaints of shortness of breath, lower extremity edema, and abdominal distention. The patient was recently admitted to the hospital from 04/25-04/27 for similar complaints, at which time she was diagnosed with the above mitral valve disease. The patient was advised to follow-up as an outpatient for an elective mitral valve repair/replacement with cardiothoracic surgery. Upon arrival at the emergency room vital signs were within normal limits. Chest CTA revealed no evidence of PE with a right pleural effusion. EKG revealed sinus tachycardia with PVCs at 102 bpm with no notable ST/T-wave changes noted as reviewed by me. Laboratory evaluation was remarkable for troponin of less than 0.012, proBNP 3870, AST 132, ALT 158, and alk phos 232 with a total bilirubin 1.4. She was admitted for acute exacerbation of right- sided heart failure in the setting of severe mitral valve disease. She was started on IV diuresis and cardiology was consulted. Cardiovascular surgery was also consulted. Patient underwent open heart surgery with mitral valve replacement, tricuspid valve repair, exclusion of the left atrial appendage with a 35mm atrial clip on 05/22. She was extubated on 05/22. Patient was seen and examined. No acute events overnight. She is POD 8. She reports abdominal bloating, nausea but no vomiting. Had a bowel movement this morning. General: nontoxic, no distress, appears at stated age Derm: warm, dry Head: atraumatic, normocephalic, symmetric Eyes: EOMI, no lid lag, anicteric sclera Mouth: no lip lesion, mucus membranes moist Cardiovascular: S1S2 reg, with murmur Lungs: Decreased BS bilateral, no rhonchi, no rales , no accessory muscle use Abd: Slightly distended, sluggish bowel sounds, non tender to palpation Ext: no gross muscle atrophy, trace edema, no contractures Neuro: no focal neuro deficits Psych: Alert, oriented, appropriate affect #Abdominal bloating #Constipation -KUB nonspecific -Zofran and Reglan PRN for N/V -Simethicone -Continue with bowel regimen -Surgery consulted #Leukocytosis #UTI -Started on Rocephin (D2) -Follow urine culture -ID consulted #Acute blood loss anemia -Expected result of surgery -s/p 2 unit PRBC -Continue to monitor #Hyponatremia, probably hypervolemic -Increased to Lasix 40 mg IV BID -Improving -Daily BMP #Acute exacerbation of right-sided heart failure, cor pulmonale in the setting of severe mitral valve disease #Severe mitral regurgitation with moderate to severe stenosis #Severe pulmonary hypertension #Nonobstructive coronary artery disease #Hypertension -Cardiothoracic surgery on board -Status post mitral valve replacement, tricuspid valve repair, exclusion of the left atrial appendage with a 35mm atrial clip 05/22 -Aspirin, Plavix, statin, beta vince -On Amiodarone for AFib prophylaxis -Strict I's and O's, daily weights #Transaminitis secondary to hepatic congestion -Improving with diuresis -Continue to monitor Resolved: Acute hypoxic respiratory failure, acute kidney injury, leukocytosis Objective - Vital Signs Vital signs: Vital Signs Temp 96.7 F L 05/30/22 08:00 Pulse 81 05/30/22 11:35 Resp 20 05/30/22 08:00 BP 110/66 05/30/22 08:00 Pulse Ox 96 05/30/22 08:00 FiO2 50 05/22/22 16:00 Intake & Output 05/29/22 05/30/22 05/30/22 18:59 06:59 18:59 Intake Total 1300 200 Output Total 4566 171 9553 Balance 300 -700 -800 Weight 88.6 kg 89.4 kg Intake: IV 50 cefTRIAXone 2 gm In 50 Sodium Chloride 0.9% 50 ml @ 100 mls/hr IVPB Q24H [facility] Rx#:[id number] Oral 1250 200 Output: Urine 4269 113 4679 Other: Voiding Method Toilet Toilet # Voids 2 # Bowel Movements 1 1 ABP, PAP, CO, CI - Last Documented Arterial Blood Pressure 104/53 Pulmonary Artery Pressure 50/20 Cardiac Output 3.9 Cardiac Index 2.1 - Labs CBC & Chem 7: 05/30/22 05:14 05/30/22 05:14 Labs: Abnormal Lab Results - Last 24 Hours (Table) 05/29/22 05/29/22 05/30/22 Range/Units 16:57 20:57 05:14 WBC 13.3 H (3.8-10.6) k/uL RBC 3.18 L (3.80-5.40) m/uL Hgb 10.2 L (11.4-16.0) gm/dL Hct 30.3 L (34.0-46.0) % Sodium (137-145) mmol/L Chloride (98-107) mmol/L BUN (7-17) mg/dL Glucose (74-99) mg/dL POC Glucose (mg/dL) 135 H 137 H (70-110) mg/dL Calcium (8.4-10.2) mg/dL 05/30/22 05/30/22 05/30/22 Range/Units 05:14 06:21 11:24 WBC (3.8-10.6) k/uL RBC (3.80-5.40) m/uL Hgb (11.4-16.0) gm/dL Hct (34.0-46.0) % Sodium 131 L (137-145) mmol/L Chloride 95 L (98-107) mmol/L BUN 20 H (7-17) mg/dL Glucose 105 H (74-99) mg/dL POC Glucose (mg/dL) 113 H 117 H (70-110) mg/dL Calcium 8.0 L (8.4-10.2) mg/dL Microbiology - Last 24 Hours (Table) 05/29/22 08:30 Urine Culture - Preliminary Urine,Voided
--- NOTE | 2022-05-30 12:50 | P.GSCN ---
History of Present Illness Consult date: 05/30/22 History of present illness: CHIEF COMPLAINT: Shortness of breath HISTORY OF PRESENT ILLNESS: This is a 61-year-old female who presented to the hospital on 05/15/2022 with worsening shortness of breath, shortness of breath with exertion and abdominal distention. She had noted worsening symptoms over the last 2 weeks. She had known history of severe mitral valve regurgitation and had evidence of congestive heart failure exacerbation. Patient is status post mitral valve replacement and tricuspid valve repair during this admission on 05/22/2022. Patient is currently in the ICU. She is receiving IV Lasix for fluid overload. She continues to complain of abdominal distention. And reports that her pain and distention has worsened since yesterday. I'm she did have a bowel movement. She is having flatus. She reports that the pain radiates across the upper abdomen. She does report that she has been dealing with abdominal pain for multiple years and it has recently worsened. She does describe the burning is a burning sensation especially in the epigastric area. This discomfort is worse after eating or taking in pills. She denies any change in her bowel movements they have been regular no blood or black stools noted. Her last EGD was in 2014 and she reports she did have H. pylori at that time. Colonoscopy at that time was negative per patient. Past surgical history does include appendectomy and hysterectomy. Surgical service consulted regarding abdominal pain and abdominal distention. PAST MEDICAL HISTORY: See below PAST SURGICAL HISTORY: See below MEDICATIONS: See below ALLERGIES: See below SOCIAL HISTORY: No illicit drug use. REVIEW OF SYSTEMS: CONSTITUTIONAL: Denies fever or chills. HEENT: Denies blurred vision, vision changes, or eye pain. Denies hemoptysis CARDIOVASCULAR: Denies chest pain or pressure. RESPIRATORY: No shortness of breath. GASTROINTESTINAL: See HPI for pertinent findings HEMATOLOGIC: Denies bleeding disorders. GENITOURINARY: Denies any blood in urine or increased urinary frequency. SKIN: Denies pruitis. Denies rash. PHYSICAL EXAM: VITAL SIGNS: Reviewed GENERAL: Well-developed in no acute distress. HEENT: No sclera icterus. Extraocular movements grossly intact. Moist buccal mucosa. Head is atraumatic, normocephalic. No nasal drainage. Chest: Surgical midline incision clean dry and intact ABDOMEN: Distended with tenderness epigastric and right upper quadrant. Abdominal skin upper abdomen and scabbed areas of previous chest tube placement. Few scattered areas of skin scabbing from tape NEUROLOGIC: Alert and oriented. Cranial nerves II through XII grossly intact. LABORATORY DATA: WBC is 13.3 HgB 10.2 platelets 271 Sodium 131 potassium 3.9 and creatinine 0.70 BUN 20 Magnesium 1.7 Total bilirubin 1.2 AST 108 ALT 92 alk phos 267 Urinalysis showing evidence of infection. Urine culture pending IMAGING: KUB x-ray nonacute abdomen Abdominal ultrasound no evidence for acute process with limited visualization visualization of the kidneys. No hydronephrosis. Gallbladder appears large in size ASSESSMENT: 1. Abdominal pain and abdominal distention 2. History of H. pylori 3. Status post mitral valve replacement and tricuspid valve repair 05/22/[address] Montaño 4. UTI 5. Hyponatremia 6. Leukocytosis 7. Hypomagnesemia PLAN: -Computed tomography scan abdomen and pelvis with IV contrast ordered for further evaluation of abdominal pain and abdominal distention -Keep patient nothing by mouth until computed tomography scan results reviewed -Further recommendations forthcoming per surgeon -Continue to correct electrolytes -Continue antibiotics for UTI Thank you for this consultation Physician Front End Developer note has been reviewed by physician. Signing provider agrees with the documented findings, assessment, and plan of care. I have personally seen and examined the patient, reviewed the MANUFACTURING SOFTWARE ENGINEER /PAs history, exam and MDM and agree with the assessment and plan as written. Based on total visit time, I have performed more than 50% of the visit. As above: We were consulted today to see this patient for complaints of abdominal distention and pain. Apparently the symptoms were present even on admission. She does have lower extremity edema and says this was present preoperatively. Previous ultrasound showed some gallbladder distention. Went for CAT scan today with IV contrast. Mild constipation seen. Gallbladder remains mildly distended. Significant abdominal wall edema is present which appears to be contributing to her complaints of distention. Continue diuresis. Increased stool softeners. We'll follow closely. Past Medical History Past Medical History: Chest Pain / Angina, Heart Failure, Hypertension, Pneumonia, Supraventricular Tachycardia (SVT) Additional Past Medical History / Comment(s): migraines, bronchitis, H. pylori, severe mitral valve regurgitation with thickened mitral valve with restricted leaflet mobility, severe pulmonary hypertension with an RSVP of 86 mmHg. 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 Past Anesthesia/Blood Transfusion Reactions: No Reported Reaction Past Psychological History: Depression Smoking Status: Former smoker (As quit smoking for around 3 weeks.) Past Alcohol Use History: None Reported Past Drug Use History: None Reported Additional Drug Use History / Comment(s): stopped smoking 04/2022 - Past Family History Mother Family Medical History: Coronary Artery Disease (CAD) Additional Family Medical History / Comment(s): Mother is still alive at 79 years old Father Family Medical History: Cancer, Diabetes Mellitus Additional Family Medical History / Comment(s): Father is still alive at 82 years familyi Family Medical History: Coronary Artery Disease (CAD) Additional Family Medical History / Comment(s): heart disease Medications and Allergies Home Medications Medication Instructions Recorded Confirmed Type Citalopram Hydrobromide [CeleXA] 20 mg PO BID 04/07/22 05/15/22 History HYDROcodone/APAP 7.5-325MG [[place] 1 tab PO QID PRN 04/07/22 05/15/22 History 7.5-325] clonazePAM [KlonoPIN] 0.5 mg PO BID PRN 04/07/22 05/15/22 History Aspirin 81 mg PO DAILY 90 Days #90 tab 04/27/22 05/15/22 Rx Atorvastatin [Lipitor] 20 mg PO DAILY 30 Days #30 tab 04/27/22 05/15/22 Rx Furosemide [Lasix] 20 mg PO DAILY 30 Days #30 tab 04/27/22 05/15/22 Rx Metoprolol Tartrate 25 mg PO BID 30 Days #60 tab 04/27/22 05/15/22 Rx Potassium Chloride ER [K-Dur 10] 10 meq PO DAILY 30 Days #30 tab 04/27/22 05/15/22 Rx Nicotine 14Mg/24Hr Patch [Habitrol] 1 patch TRANSDERM DAILY PRN 05/15/22 05/15/22 History Allergies Allergy/AdvReac Type Severity Reaction Status Date / Time adhesive tape AdvReac Itching Verified 05/15/22 22:13 risperidone [From Risperdal] AdvReac SPASMS, Verified 05/15/22 17:44 AGGITATION Surgical - Exam Vital Signs Temp Pulse Resp BP Pulse Ox 97.4 F L 104 H 28 H 134/75 93 L 05/15/22 16:18 05/15/22 16:18 05/15/22 16:18 05/15/22 16:18 05/15/22 16:18 Results - Labs 05/30/22 05:14 05/30/22 05:14 Abnormal Lab Results - Last 24 Hours (Table) 05/29/22 05/29/22 05/30/22 Range/Units 16:57 20:57 05:14 WBC 13.3 H (3.8-10.6) k/uL RBC 3.18 L (3.80-5.40) m/uL Hgb 10.2 L (11.4-16.0) gm/dL Hct 30.3 L (34.0-46.0) % Sodium (137-145) mmol/L Chloride (98-107) mmol/L BUN (7-17) mg/dL Glucose (74-99) mg/dL POC Glucose (mg/dL) 135 H 137 H (70-110) mg/dL Calcium (8.4-10.2) mg/dL 05/30/22 05/30/22 05/30/22 Range/Units 05:14 06:21 11:24 WBC (3.8-10.6) k/uL RBC (3.80-5.40) m/uL Hgb (11.4-16.0) gm/dL Hct (34.0-46.0) % Sodium 131 L (137-145) mmol/L Chloride 95 L (98-107) mmol/L BUN 20 H (7-17) mg/dL Glucose 105 H (74-99) mg/dL POC Glucose (mg/dL) 113 H 117 H (70-110) mg/dL Calcium 8.0 L (8.4-10.2) mg/dL Microbiology - Last 24 Hours (Table) 05/29/22 08:30 Urine Culture - Preliminary Urine,Voided Diabetes panel 05/30/22 Range/Units 05:14 Sodium 131 L (137-145) mmol/L Potassium 3.9 (3.5-5.1) mmol/L Chloride 95 L (98-107) mmol/L Carbon Dioxide 28 (22-30) mmol/L BUN 20 H (7-17) mg/dL Creatinine 0.70 (0.52-1.04) mg/dL Glucose 105 H (74-99) mg/dL Calcium 8.0 L (8.4-10.2) mg/dL Calcium panel 05/30/22 Range/Units 05:14 Calcium 8.0 L (8.4-10.2) mg/dL Pituitary panel 05/30/22 Range/Units 05:14 Sodium 131 L (137-145) mmol/L Potassium 3.9 (3.5-5.1) mmol/L Chloride 95 L (98-107) mmol/L Carbon Dioxide 28 (22-30) mmol/L BUN 20 H (7-17) mg/dL Creatinine 0.70 (0.52-1.04) mg/dL Glucose 105 H (74-99) mg/dL Calcium 8.0 L (8.4-10.2) mg/dL Adrenal panel 05/30/22 Range/Units 05:14 Sodium 131 L (137-145) mmol/L Potassium 3.9 (3.5-5.1) mmol/L Chloride 95 L (98-107) mmol/L Carbon Dioxide 28 (22-30) mmol/L BUN 20 H (7-17) mg/dL Creatinine 0.70 (0.52-1.04) mg/dL Glucose 105 H (74-99) mg/dL Calcium 8.0 L (8.4-10.2) mg/dL
--- NOTE | 2022-05-30 13:10 | CT ---
EXAMINATION TYPE: CT abdomen pelvis w con DATE OF EXAM: 05/30/2022 COMPARISON: 04/07/2022 HISTORY: abdominal pain, 4 days post-op open heart CT DLP: 1429.2 mGycm CONTRAST: CT scan of the abdomen and pelvis is performed without Oral Contrast and with IV Contrast, patient in jected with 100 mL of Isovue 370. FINDINGS: LUNG BASES-: Basilar pleural effusion small in size with the associated atelectasis. LIVER/GB: No calcified gallstones. No space occupying hepatic lesion. Biliary tree is of normal ca liber. PANCREAS: No inflammation. No distinct mass. SPLEEN: No splenic enlargement. No lesion seen. ADRENALS: No nodule. No thickening. KIDNEYS/BLADDER: No hydronephrosis. No nephrolithiasis. No distinct renal mass. Urinary bladder g rossly unremarkable. BOWEL: Normal appendix. Normal bowel caliber. No inflammation. GENITAL ORGANS: Hysterectomy changes noted. LYMPH NODES: No greater than 1cm abdominal or pelvic lymph nodes are appreciated. AORTA: No significant abnormality. OSSEOUS STRUCTURES: No significant abnormality is seen. OTHER: Subcutaneous edema suggesting anasarca changes. Small amount of ascites within the pelvis. IMPRESSION: 1. Features of anasarca as noted above with subcutaneous edema, bilateral pleural effusions and small amount of ascites.
[2022-05-30] MEDS: LACTULOSE 20 GM/30 ML CUP PO SCH (15:15)
[2022-05-30 15:34] LABS: African American GFR (CKD) >90 (>60 ml/min/1.73 sqM); Anion Gap 9 mmol/L; Blood Urea Nitrogen 19 mg/dL (7-17); Calcium 8.2 mg/dL (8.4-10.2); Carbon Dioxide 28 mmol/L (22-30); Chloride 92 mmol/L (98-107); Glucose 156 mg/dL (74-99); Non-African American GFR(CKD) >90 (>60 ml/min/1.73 sqM); Potassium 3.5 mmol/L (3.5-5.1); Sodium 129 mmol/L (137-145)
[2022-05-30 16:31] LABS: Glucose,Whole Blood 168 mg/dL (70-110)
[2022-05-30 19:40] LABS: Glucose,Whole Blood 119 mg/dL (70-110)
[2022-05-30] MEDS: KETOROLAC 15 MG/ML 1 ML VIAL IVP PRN (19:50)
[2022-05-30] MEDS: SENNOSIDES-DOCUSATE SODIUM 1 EACH TAB PO SCH (21:38)
[2022-05-31] MEDS: HYDROcodone/APAP 7.5-325MG 1 EACH TAB PO PRN ×4 (03:01→20:50)
[2022-05-31 06:25] LABS: Glucose,Whole Blood 116 mg/dL (70-110)
[2022-05-31] MEDS: INSULIN ASPART (NovoLOG) 100 UNIT/ML VIAL SQ SCH ×4 (06:28→20:41)
[2022-05-31] MEDS: PANTOPRAZOLE 40 MG TABLET PO SCH ×2 (06:28→16:33)
[2022-05-31] MEDS: ASCORBIC ACID 500 MG TAB PO SCH ×2 (06:28→16:33)
--- NOTE | 2022-05-31 06:38 | XR ---
EXAMINATION TYPE: XR chest 1V portable DATE OF EXAM: 05/31/2022 CLINICAL HISTORY: Difficulty breathing progress study. Postoperative cardiac surgery. TECHNIQUE: Single AP portable upright view of the chest is obtained. COMPARISON: Chest x-ray from one day earlier and older studies. FINDINGS: Overlying sternal wires along with cardiac valve surgical change and left atrial appendage clip are all redemonstrated. Persistent lower lung opacities with small bilateral pleural effusions, latter likely slightly improved. Current study slightly suboptimal as does not include the entire bean ng bases. Upper lungs remain clear without pneumothorax. Stable mild cardiomegaly. Osseous structures are intact. IMPRESSION: Cardiomegaly with bilateral lower lung acute infiltrate and/or atelectasis redemonstrated fairly stable. Small bilateral pleural effusions slightly improved from one day earlier.
[2022-05-31 07:36] LABS: Basophils # (A) 0.1 k/uL (0-0.2); Basophils % (A) 0 %; Eosinophils # (A) 0.3 k/uL (0-0.7); Eosinophils % (A) 2 %; HCT 29.5 % (34.0-46.0); Lymphocytes % (A) 7 %; MCHC 33.8 g/dL (31.0-37.0); MCV 94.6 fL (80.0-100.0); Mean Platelet Volume 8.2; Monocytes # (A) 0.7 k/uL (0-1.0); Monocytes % (A) 5 %; Neutrophils # (A) 10.8 k/uL (1.3-7.7); Neutrophils % (A) 83 %; Platelet Count 287 k/uL (150-450); RBC 3.12 m/uL (3.80-5.40); RDW 15.5 % (11.5-15.5)
[2022-05-31] MEDS: IPRATROPIUM-ALBUTEROL 3 ML NEB INHALATION SCH ×4 (07:46→20:18)
[2022-05-31] MEDS: SYMBICORT 160-4.5 MCG INHALER INHALATION SCH ×2 (07:46→20:18)
[2022-05-31 07:47] LABS: ALT 60 U/L (4-34); AST 55 U/L (14-36); African American GFR (CKD) >90 (>60 ml/min/1.73 sqM); Albumin 3.5 g/dL (3.5-5.0); Alkaline Phosphatase 277 U/L (38-126); Anion Gap 8 mmol/L; Blood Urea Nitrogen 19 mg/dL (7-17); Calcium 8.2 mg/dL (8.4-10.2); Carbon Dioxide 31 mmol/L (22-30); Chloride 91 mmol/L (98-107); Glucose 139 mg/dL (74-99); Non-African American GFR(CKD) 87 (>60 ml/min/1.73 sqM); Potassium 3.5 mmol/L (3.5-5.1); Sodium 130 mmol/L (137-145); Total Bilirubin 0.8 mg/dL (0.2-1.3); Total Protein 5.9 g/dL (6.3-8.2)
[2022-05-31] MEDS ORDERED: metOLazone 5 MG TAB PO STA (08:07)
[2022-05-31] MEDS: ASPIRIN 325 MG TAB PO SCH (08:11)
[2022-05-31] MEDS: ATORVASTATIN 40 MG TAB PO SCH (08:11)
[2022-05-31] MEDS: AMIODARONE 200 MG TAB PO SCH ×2 (08:11→20:52)
[2022-05-31] MEDS: HEPARIN SODIUM,PORCINE/PF 5,000 UNIT/0.5 ML SYRINGE SQ SCH ×3 (08:11→23:29)
[2022-05-31] MEDS: CLOPIDOGREL 75 MG TAB PO SCH (08:12)
[2022-05-31] MEDS: CITALOPRAM HYDROBROMIDE 20 MG TAB PO SCH ×2 (08:12→20:50)
[2022-05-31] MEDS: METOPROLOL TARTRATE 25 MG TAB PO SCH ×2 (08:12→20:50)
[2022-05-31] MEDS: SIMETHICONE 80 MG CHEWABLE PO SCH ×4 (08:12→21:00)
[2022-05-31] MEDS: LACTULOSE 20 GM/30 ML CUP PO SCH (08:12)
[2022-05-31] MEDS: FUROSEMIDE 10 MG/ML 4 ML VIAL IV SCH ×2 (08:12→16:33)
[2022-05-31] MEDS: POTASSIUM CHLORIDE ER 20 MEQ TAB.ER PO SCH (08:12)
--- NOTE | 2022-05-31 08:16 | P.PN ---
Subjective Progress Note Date: 05/31/22 Principal diagnosis: Valvular heart disease The patient is a pleasant 61-year-old female patient who is known to have valvular heart disease who underwent mitral valve replacement and tricuspid valve repair. She's also does have pulmonary hypertension likely to be the unit show group to pulmonary hypertension secondary to valvular heart disease and left side disease. May [id number] She was evaluated this morning. She remains a stable from the cardiovascular standpoint of view. She is on dual antiplatelet therapy which is an intermediate intensity statin. Chest x-ray was reviewed this morning and seems to be stable. From a cardiovascular standpoint of view, we'll continue the current medical regimen and continue monitor the kidney function and electrolytes and follow-up with the patient May [id number] The patient was seen and evaluated this morning. She seems stable from a cardiovascular standpoint of view. She continues to be in sinus rhythm with a long first-degree AV block. From the cardiovascular standpoint of view, we'll continue the current medical regimen and taper down the dose of amiodarone and continue dual antiplatelet therapy along with a statin and follow-up with the patient. Continue monitor the kidney function as well as electrolytes. May [id number] The patient was seen and evaluated this morning. The patient seems to be stable from a cardiovascular standpoint of view. She remains in sinus rhythm with first-degree AV block. Overall she is doing well. At this point we'll continue the current medical regimen including the current medical regimen and follow-up with the patient. The patient potentially can be transferred out of the intensive care unit 05/30/2022 The patient was seen and evaluated this morning if she remains stable from a perivascular standpoint overview. Her main issues has been is abdominal bloating. That has been worked up by the primary care team. Otherwise she seems to be stable cardiac kumar pH she continues to be in sinus rhythm with first-degree AV block. From the cardiac standpoint of view, the patient can be transferred out of the intensive care unit. 05/31/2022 The patient was seen and evaluated this morning. The abdominal discomfort/bloating has improved after she was started on Lasix IV. Also the lower extremities edema has improved somewhat. She remains stable hemodynamically. She has been maintaining sinus rhythm was first-degree AV block. At this point we'll continue the current medical regimen including the current dose of Lasix IV with monitoring the kidney function and electrolytes and possible discharge in the next 24-48 hours Objective - Vital Signs Vital signs: Vital Signs Temp 98.0 F 05/31/22 04:00 Pulse 77 05/31/22 07:55 Resp 21 05/31/22 04:00 BP 109/64 05/31/22 04:00 Pulse Ox 94 L 05/31/22 04:00 FiO2 50 05/22/22 16:00 Intake & Output 05/30/22 05/31/22 05/31/22 18:59 06:59 18:59 Intake Total 600 Output Total 2900 1200 Balance -2300 -1200 Weight 87.3 kg Intake: Oral 600 Output: Urine 2900 1200 Other: Voiding Method Toilet Toilet # Voids 4 1 # Bowel Movements 1 ABP, PAP, CO, CI - Last Documented Arterial Blood Pressure 104/53 Pulmonary Artery Pressure 50/20 Cardiac Output 3.9 Cardiac Index 2.1 - Constitutional General appearance: Present: no acute distress - Respiratory Respiratory: bilateral: CTA - Cardiovascular Rhythm: regular Abnormal Heart Sounds: Present: systolic murmur - Labs CBC & Chem 7: 05/31/22 06:52 05/31/22 06:52 Labs: Abnormal Lab Results - Last 24 Hours (Table) 05/30/22 05/30/22 05/30/22 Range/Units 11:24 15:09 16:29 WBC (3.8-10.6) k/uL RBC (3.80-5.40) m/uL Hgb (11.4-16.0) gm/dL Hct (34.0-46.0) % Neutrophils # (1.3-7.7) k/uL Sodium 129 L (137-145) mmol/L Chloride 92 L (98-107) mmol/L Carbon Dioxide (22-30) mmol/L BUN 19 H (7-17) mg/dL Glucose 156 H (74-99) mg/dL POC Glucose (mg/dL) 117 H 168 H (70-110) mg/dL Calcium 8.2 L (8.4-10.2) mg/dL AST (14-36) U/L ALT (4-34) U/L Alkaline Phosphatase (38-126) U/L Total Protein (6.3-8.2) g/dL 05/30/22 05/31/22 05/31/22 Range/Units 19:38 06:24 06:52 WBC 13.0 H (3.8-10.6) k/uL RBC 3.12 L (3.80-5.40) m/uL Hgb 10.0 L (11.4-16.0) gm/dL Hct 29.5 L (34.0-46.0) % Neutrophils # 10.8 H (1.3-7.7) k/uL Sodium (137-145) mmol/L Chloride (98-107) mmol/L Carbon Dioxide (22-30) mmol/L BUN (7-17) mg/dL Glucose (74-99) mg/dL POC Glucose (mg/dL) 119 H 116 H (70-110) mg/dL Calcium (8.4-10.2) mg/dL AST (14-36) U/L ALT (4-34) U/L Alkaline Phosphatase (38-126) U/L Total Protein (6.3-8.2) g/dL 05/31/22 Range/Units 06:52 WBC (3.8-10.6) k/uL RBC (3.80-5.40) m/uL Hgb (11.4-16.0) gm/dL Hct (34.0-46.0) % Neutrophils # (1.3-7.7) k/uL Sodium 130 L (137-145) mmol/L Chloride 91 L (98-107) mmol/L Carbon Dioxide 31 H (22-30) mmol/L BUN 19 H (7-17) mg/dL Glucose 139 H (74-99) mg/dL POC Glucose (mg/dL) (70-110) mg/dL Calcium 8.2 L (8.4-10.2) mg/dL AST 55 H (14-36) U/L ALT 60 H (4-34) U/L Alkaline Phosphatase 277 H (38-126) U/L Total Protein 5.9 L (6.3-8.2) g/dL Microbiology - Last 24 Hours (Table) 05/29/22 08:30 Urine Culture - Final Urine,Voided Assessment and Plan Assessment: Assessment Valvular heart disease Status post mitral valve replacement and tricuspid valve repair Multiple comorbid conditions Plan Continue the current medical regimen Continue dual antiplatelet therapy Continue Lasix IV as well Continue monitoring the kidney function and electrolytes Continue intermediate intensity statin Taper down the dose of amiodarone
[2022-05-31] MEDS ORDERED: POTASSIUM CHLORIDE ER 20 MEQ TAB.ER PO STA (08:26)
--- NOTE | 2022-05-31 09:43 | US ---
EXAMINATION TYPE: US abdomen limited DATE OF EXAM: 05/31/2022 COMPARISON: CT from yesterday CLINICAL HISTORY: abd distention/pain. ABD distention and pain TECHNIQUE: Multiple sonographic images of the right upper quadrant are obtained. FINDINGS: EXAM MEASUREMENTS: Liver Length: 19.2 cm Gallbladder Wall: 0.3 cm CBD: 0.3 cm Right Kidney: 9.7 x 4.2 x 4.5 cm BEATER OUT NOTES: Pancreas: wnl, tail obscured by overlying bowel gas Liver: Enlarged, otherwise appeared wnl Gallbladder: wnl Evidence for sonographic Major's sign: Yes CBD: wnl Right Kidney: wnl, lower pole gassed out Visualized pancreas is within normal limits. Visualized liver remains mildly enlarged and heterogeneo us without biliary dilatation. No shadowing mobile gallstones. No right-sided hydronephrosis. IMPRESSION: No intra-abdominal ascites. No gallstones noted.
--- NOTE | 2022-05-31 10:41 | P.PN ---
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 Past medical history significant for pulmonary hypertension with a recent RVSP 86 mmHg, mild nonobstructive coronary artery disease by heart catheterization to her circumflex coronary artery, hypertension, chronic tobacco abuse although has not smoked in 3 weeks, COPD with a previous pulmonary function test showing an FEV1 of 42% of predicted value with a base volume of 1.04 L, history of SVT, remote history of pneumonia, history of depression and family history of coronary artery disease. POD #9 chordal preserving mitral valve replacement using a 27 mm Mosaic porcine bioprosthesis, tricuspid valve repair with ring annuloplasty using a 28 mm MC3 ring, exclusion of the left atrial appendage using a 35 mm AtriClip, intraoperat greyson transesophageal echocardiogram and epi-aortic scanning Postoperative acute blood loss anemia, expected given hemodilution and cardiopulmonary bypass pump. The patient was seen and examined in follow-up today 05/31/2000 2200 bedside in the intensive care unit. She is currently sitting up to the bedside chair, is awake, alert, oriented 3 and is in no acute apparent distress. She denies any complaints of shortness of breath, although his complaining of some continued abdominal distention and pain across her upper part of her abdomen. She does also report that her abdomen does feel slightly better today than yesterday. The patient is teary-eyed this morning, reports that she had a migraine headache last night and had some episodes of nausea and vomiting associated with the headache. Denies any further complaints of headache this morning. Oxygen saturations are 94% on room air and she is achieving 1000 mL on her incentive spirometry with much encouragement. Laboratory results this morning show a WBC count of 13.0 which is trending down, hemoglobin 10.0, hematocrit 29.5, plat elets 287, sodium 130, potassium 3.5, chloride 91, CO2 31, BUN 19, creatinine 0.75, glucose 139, calcium 8.2, AST 55, ALT 60 and alk phos 277. Denies any further complaints of burning with urination and her urine culture from 05/29/2001 to shows greater than 100,000 CFU per milliliter apparent skin and or genital [place]. She remains on Rocephin 2 g IV piggyback every 24 hours for impaired antibiotic coverage. She has been afebrile the last 24 hours. Chest x-ray this morning has been reviewed. She continues on Lasix 40 mg IV twice a day and received a dose of Zaroxolyn 2.5 mg by mouth 1 yesterday. Objective - Vital Signs Vital signs: Vital Signs Temp 98.1 F 05/31/22 08:00 Pulse 89 05/31/22 08:00 Resp 18 05/31/22 08:00 BP 99/75 05/31/22 08:00 Pulse Ox 96 05/31/22 08:00 FiO2 50 05/22/22 16:00 Intake & Output 05/30/22 05/31/22 05/31/22 18:59 06:59 18:59 Intake Total 600 200 Output Total 2900 1200 1300 Balance -2300 -1200 -1100 Weight 87.3 kg Intake: Oral 600 200 Output: Urine 2900 1200 1300 Other: Voiding Method Toilet Toilet Toilet # Voids 4 1 # Bowel Movements 1 ABP, PAP, CO, CI - Last Documented Arterial Blood Pressure 104/53 Pulmonary Artery Pressure 50/20 Cardiac Output 3.9 Cardiac Index 2.1 - Exam CONSTITUTIONAL: Sitting up to the bedside chair in the intensive care unit, appears comfortable, cooperative, no apparent acute distress. HEENT: Neck is supple, no JVD, no lymphadenopathy. RESPIRATORY: Lungs sounds essentially clear throughout, diminished to her bilateral bases. Respirations are symmetrical and nonlabored. Currently on room air oxygen saturations 94%. Able to achieve 1000 mL on her incentive spirometry. Strong cough. CARDIOVASCULAR: Regular rhythm and rate. S1 and S2 present, negative for S3, gallop or murmur. Sternum is stable. Palpable peripheral pulses bilaterally, +1 to +2 edema to her bilateral lower extremities. No calf pain or tenderness noted. Heart hugger in place with patient demonstrating appropriate use. Knee- high MARIAM hose and sequential compression devices in place to her bilateral lower extremities. GASTROINTESTINAL: Abdomen soft, nontender, distended. Active bowel sounds present 4 quadrants. Tolerating diet. Passing flatus. No guarding or rigidity. Bowel movement yesterday 05/30/2022. GENITOURINARY: Continues to void. 300 mL output last 8 hours. INTEGUMENTARY: Skin is warm and dry with no evidence of clubbing or cyanosis. Midline sternal incision clean dry and well approximated, covered with dry intact dressing. NEUROLOGIC: Cranial nerves II through XII intact. No focal deficits. MUSKULOSKELETAL: Able to move all extremities, strength equal bilaterally. PSYCHIATRIC: Alert and oriented to person place and time, appropriate affect, intact judgment and insight. - Allied health notes Allied health notes reviewed: nursing - Labs CBC & Chem 7: 05/31/22 06:52 05/31/22 06:52 Labs: Abnormal Lab Results - Last 24 Hours (Table) 05/30/22 05/30/22 05/30/22 Range/Units 11:24 15:09 16:29 WBC (3.8-10.6) k/uL RBC (3.80-5.40) m/uL Hgb (11.4-16.0) gm/dL Hct (34.0-46.0) % Neutrophils # (1.3-7.7) k/uL Sodium 129 L (137-145) mmol/L Chloride 92 L (98-107) mmol/L Carbon Dioxide (22-30) mmol/L BUN 19 H (7-17) mg/dL Glucose 156 H (74-99) mg/dL POC Glucose (mg/dL) 117 H 168 H (70-110) mg/dL Calcium 8.2 L (8.4-10.2) mg/dL AST (14-36) U/L ALT (4-34) U/L Alkaline Phosphatase (38-126) U/L Total Protein (6.3-8.2) g/dL 05/30/22 05/31/22 05/31/22 Range/Units 19:38 06:24 06:52 WBC 13.0 H (3.8-10.6) k/uL RBC 3.12 L (3.80-5.40) m/uL Hgb 10.0 L (11.4-16.0) gm/dL Hct 29.5 L (34.0-46.0) % Neutrophils # 10.8 H (1.3-7.7) k/uL Sodium (137-145) mmol/L Chloride (98-107) mmol/L Carbon Dioxide (22-30) mmol/L BUN (7-17) mg/dL Glucose (74-99) mg/dL POC Glucose (mg/dL) 119 H 116 H (70-110) mg/dL Calcium (8.4-10.2) mg/dL AST (14-36) U/L ALT (4-34) U/L Alkaline Phosphatase (38-126) U/L Total Protein (6.3-8.2) g/dL 05/31/22 Range/Units 06:52 WBC (3.8-10.6) k/uL RBC (3.80-5.40) m/uL Hgb (11.4-16.0) gm/dL Hct (34.0-46.0) % Neutrophils # (1.3-7.7) k/uL Sodium 130 L (137-145) mmol/L Chloride 91 L (98-107) mmol/L Carbon Dioxide 31 H (22-30) mmol/L BUN 19 H (7-17) mg/dL Glucose 139 H (74-99) mg/dL POC Glucose (mg/dL) (70-110) mg/dL Calcium 8.2 L (8.4-10.2) mg/dL AST 55 H (14-36) U/L ALT 60 H (4-34) U/L Alkaline Phosphatase 277 H (38-126) U/L Total Protein 5.9 L (6.3-8.2) g/dL Microbiology - Last 24 Hours (Table) 05/29/22 08:30 Urine Culture - Final Urine,Voided - Imaging and Cardiology Chest x-ray: report reviewed, image reviewed Assessment and Plan Assessment: 1. 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 Preserved left ventricular systolic function, moderate right ventricular dysfunction, EF 55-60% 3. Moderate tricuspid valve regurgitation, status post tricuspid valve repair 4. Acute on chronic diastolic heart failure 5. Transaminitis 6. History of mild nonobstructive coronary artery disease 7. Hypertension 8. Hyperlipidemia, treated, cholesterol 196, LDL 99, triglycerides 254 9. Abdominal distention, likely secondary to constipation 10. Previous tobacco dependence with recent cessation 11. Severe COPD, preoperative FEV1 42% of predicted 12. History of supraventricular tachycardia 13. Depression 14. Remote history of pneumonia 15. Family history of coronary artery disease 16. Postoperative acute blood loss anemia, expected Plan: 1. Continue to maximize medical therapy with aspirin, statin, and beta vince. Discontinue Plavix at this time until ultrasound of the gallbladder report obtained. 2. Continue amiodarone 200 mg by mouth twice a day for A. fib prophylaxis. 3. Encourage incentive spirometry use 10 times every hour while awake. Bronchodilators per pulmonology/critical care management. 4. Increase activity as tolerated. PT/OT/cardiac rehab following. Shower daily. 5. Will monitor daily labs and chest x-rays. Electrolyte replacement per protocol. Continue IV Lasix 40 mg twice a day. Zaroxolyn 5 mg by mouth 1 now. Potassium chloride 40 mEq by mouth 1 now. Continue potassium chloride 20 mg by mouth daily 6. GI/DVT prophylaxis. Continue protonix BID, tums PRN. 7. Pain control with current medication regimen. Avoid narcotics 8. Insulin management per internal medicine service. Preoperative hemoglobin A1c 6.4% 9. Strict accurate intake and output. Daily weights 10. Transfer orders for 3 S. cardiac stepdown unit when bed available. 11. Discharge planning in progress. Anticipate discharge to home with home care in 24-48 hours. 12. Continue Rocephin 2 g IV piggyback every 24 hours for emperic coverage managed by infectious disease. 13. General surgery consult noted and appreciated. 14. More recommendations to follow based on patient's clinical course Time with Patient: Greater than 30
--- NOTE | 2022-05-31 11:47 | P.PN ---
Subjective Progress Note Date: 05/31/22 Principal diagnosis: ICU management. Reevaluated today on 05/23/22, patient is now postoperative day #1chordal preserving mitral valve replacement using a 27 mm Mosaic porcine bioprosthesis, tricuspid valve repair with ring annuloplasty using a 28 mm MC3 ring, exclusion of the left atrial appendage using a 35 mm AtriClip, intraoperative transesophageal echocardiogram and epi-aortic scanning. Patient was extubated last night around 7 PM, and she tolerated the extubation well. Patient remains in the ICU, denies any shortness of breath, she is in sinus rhythm, hemodynamically stable however she is still on low dose of Primacor, and amiodarone. No major issues over the last 12 hours. Patient is resting in a bedside chair, he is on few liters nasal cannula, chest x-ray showed minimal postoperative changes and atelectasis. Overall the patient is doing great. CBC is relatively normal hemoglobin is 9.4. Basic metabolic profile is normal. Cardiac output is 5.7, cardiac index is 3.1. CVP is 13. Reevaluated today on 05/24/22, patient remains in the ICU, she is on 3 L nasal cannula, she remains on Primacor at 0.1 mcg/kg/m, she is also on insulin 20 units per hour, IV fluid 0.9 normal saline at 20 mL per hour. Continues to have Donalds-Celso catheter in place, her PA pressures are 50/23 and CVP is 11. Continues to have right-sided chest tube and mediastinal chest tube. WBC count is 15.6 hemoglobin is 8. Basic metabolic profile is normal renal profile is normal. Chest x-ray this a.m. showed minimal left lower lobe atelectasis, and her Donalds-Celso catheter remains present Reevaluated today on 06/21/22, patient remains in the ICU, patient is postoperative day #3,chordal preserving mitral valve replacement using a 27 mm Mosaic porcine bioprosthesis, tricuspid valve repair with ring annuloplasty using a 28 mm MC3 ring, exclusion of the left atrial appendage using a 35 mm AtriClip, intraoperative transesophageal echocardiogram and epi-aortic scanning. Cardiac output remains marginal and the patient remains on Primacor, blood pressure is marginal, urine output is marginal and she is receiving Bumex. Pulmonary-kumar she is on 2 L nasal cannula, chest x-ray showed mostly by basilar atelectasis, no evidence of congestive heart failure. WBC count of 10 hemoglobin is 7, electrolytes are normal renal profile is normal. Cardiac output/cardiac index 4.1/2.2. CVP is 15. He a pressure 52/20 Progress note dated 05/27/2022. 61-year-old female postop day #5, post mitral valve replacement, tricuspid valve repair, and exclusion of left atrial appendage. Currently, the patient's on 2 L of oxygen. She's getting dopamine at 1 mcg/kg/m. She is getting saline at KVO. White count 8.7, hemoglobin 9.8, hematocrit 28.5, and platelet count 269,000. Sodium 132, with a normal potassium, chloride, CO2, anion gap, BUN, and creatinine. Chest x-ray shows postoperative changes, with small bilateral effusions. Progress note dated 05/28/2022. 61-year-old female postop day #6, status post mitral valve replacement, tricuspid valve repair, and exclusion of left atrial appendage. Currently, the patient's on room air. She's not receiving any IV fluids. She sitting in a chair of next to her bed. Yesterday, she was on 2 L and on a small dose of dopamine. She is on neither today. White count 11, hemoglobin 10.5, hematocrit 31.8, sodium 132, potassium 4.1, chlorides 100, CO2 23, BUN 18 and creatinine 0.65. Platelet count was normal at 201,000. Chest x-ray shows small effusions, and basilar atelectasis. Progress note dated 05/29/2022. 61-year-old female, postop day #7, status post mitral valve replacement, tricuspid valve repair, and exclusion of left atrial appendage. The patient is currently on room air. She's not receiving any IV fluids. He stable. She sitting up in a chair next to her bed. White count 13.5, hemoglobin 10.4, and p latelet count was normal. Sodium 132, potassium 4.1, chlorides 97, CO2 27, BUN 19, creatinine 0.68. Chest x-ray shows similar findings from yesterday, with very tiny bilateral effusions. Progress note dated 05/30/2022. 61-year-old female, postop day #8, status post mitral valve replacement, tric uspid valve repair, and exclusion of left atrial appendage. She is on room air. Not receiving any IV fluids. She's complaining this morning of abdominal distention. White count 13.3, hemoglobin 10.2, hematocrit 30.3, platelet count normal. Sodium 131, potassium 3.9, chlorides 95, CO2 28, BUN 20, creatinine 0.7. Chest x-ray shows small bilateral effusions, with some mild basilar atelectasis. Progress note dated 05/31/2022. 61-year-old female seen again in room 266. She is postop day #9, status post mitral valve replacement, tricuspid valve repair, and exclusion of left atrial appendage. She's on room air. She's not on any IV fluids. Clinically, she is very stable. Labs include a white count of 13, hemoglobin 10, hematocrit 29.5, and platelet count of 287,000. Sodium 1:30, potassium 3.5, chlorides 91, CO2 31, BUN 19, and creatinine 0.75. Chest x-ray shows cardiomegaly, and small bilateral effusions. Objective - Vital Signs Vital signs: Vital Signs Temp 98.1 F 05/31/22 08:00 Pulse 78 05/31/22 11:16 Resp 18 05/31/22 08:00 BP 99/75 05/31/22 08:00 Pulse Ox 96 05/31/22 08:00 FiO2 50 05/22/22 16:00 Intake & Output 05/30/22 05/31/22 05/31/22 18:59 06:59 18:59 Intake Total 600 200 Output Total 2900 1200 1300 Balance -2300 -1200 -1100 Weight 87.3 kg Intake: Oral 600 200 Output: Urine 2900 1200 1300 Other: Voiding Method Toilet Toilet Toilet # Voids 4 1 # Bowel Movements 1 ABP, PAP, CO, CI - Last Documented Arterial Blood Pressure 104/53 Pulmonary Artery Pressure 50/20 Cardiac Output 3.9 Cardiac Index 2.1 - Exam No acute distress, oriented 3. Currently on room air. HEENT examination is grossly unremarkable. Neck supple. Full range of motion. No adenopathy thyromegaly or neck vein distention. Cardiovascular examination reveals regular rhythm rate. S1-S2 normal. No S3 or S4. No discernible murmur noted. Heart rate 78 bpm. Lungs reveal scattered bilateral rhonchi. No wheezes or crackles. Breath sounds equal bilaterally. Room air saturation 96 %. Abdomen distended, and tympanitic. Bowel sounds are noted. No masses. Minimal tenderness. Extremities are intact. No cyanosis clubbing or edema. Skin is without rash or lesion. Neurologic examination is brief but nonfocal. - Labs CBC & Chem 7: 05/31/22 06:52 05/31/22 06:52 Labs: Abnormal Lab Results - Last 24 Hours (Table) 05/30/22 05/30/22 05/30/22 Range/Units 15:09 16:29 19:38 WBC (3.8-10.6) k/uL RBC (3.80-5.40) m/uL Hgb (11.4-16.0) gm/dL Hct (34.0-46.0) % Neutrophils # (1.3-7.7) k/uL Sodium 129 L (137-145) mmol/L Chloride 92 L (98-107) mmol/L Carbon Dioxide (22-30) mmol/L BUN 19 H (7-17) mg/dL Glucose 156 H (74-99) mg/dL POC Glucose (mg/dL) 168 H 119 H (70-110) mg/dL Calcium 8.2 L (8.4-10.2) mg/dL AST (14-36) U/L ALT (4-34) U/L Alkaline Phosphatase (38-126) U/L Total Protein (6.3-8.2) g/dL 05/31/22 05/31/22 05/31/22 Range/Units 06:24 06:52 06:52 WBC 13.0 H (3.8-10.6) k/uL RBC 3.12 L (3.80-5.40) m/uL Hgb 10.0 L (11.4-16.0) gm/dL Hct 29.5 L (34.0-46.0) % Neutrophils # 10.8 H (1.3-7.7) k/uL Sodium 130 L (137-145) mmol/L Chloride 91 L (98-107) mmol/L Carbon Dioxide 31 H (22-30) mmol/L BUN 19 H (7-17) mg/dL Glucose 139 H (74-99) mg/dL POC Glucose (mg/dL) 116 H (70-110) mg/dL Calcium 8.2 L (8.4-10.2) mg/dL AST 55 H (14-36) U/L ALT 60 H (4-34) U/L Alkaline Phosphatase 277 H (38-126) U/L Total Protein 5.9 L (6.3-8.2) g/dL Microbiology - Last 24 Hours (Table) 05/29/22 08:30 Urine Culture - Final Urine,Voided Assessment and Plan Assessment: Postop day #9, status post mitral valve replacement, tricuspid valve repair, and exclusion of left atrial appendage. Routine postoperative ventilator management. Severe rheumatic mitral valve stenosis and severe pulmonary hypertension, with moderate mitral valve regurgitation. Chronic diastolic CHF. History of nonocclusive CAD. Hypertension. 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 History of supraventricular tachycardia. Postoperative blood loss. Postoperative atelectasis. Plan: Plan dated 05/27/2022. The patient appears to be doing relatively well. She is on 2 L. She's getting dopamine at 1 mcg/kg/m. She is resting comfortably. X-ray, labs, and medications are all reviewed. Follow the patient make recommendations along the way. We do encourage continued use of the incentive spirometer. Plan dated 05/28/2022. Today is postop day #6. The patient's currently on room air. Saturations are 98%. The patient's dopamine has been discontinued. Labs, x-rays, and medications are all reviewed. Clinically, the patient is well. She sitting up in a chair next to her bed. She denies any significant breathing issues. We encourage her to continue using the incentive spirometer, and also encourage her to deep breathe, cough, and clear secretions. Plan dated 05/29/2022. Today's postop day #7. The patient's on room air. Saturations are 97-98%. She continues on the incentive spirometer. Labs, x-rays, and medications are reviewed clinically, the patient's very stable. We will continue to follow make recommendations along the way. The patient is also a overflow patient over to 3 S. floor. Plan dated 05/30/2022. Today's postop day #8. Overnight, the patient did develop some abdominal disten tion. Her abdomen is firm. X-ray shows some basilar atelectasis and small effusions. Labs, x-rays, and medications are reviewed. The patient's on room air. She is not receiving any IV fluids. We will continue to follow make recommendations along the way. Plan dated 05/31/2022. Today is postop day #9. The patient's on room air. No IV fluids. The abdominal symptoms that she was having, heartbeat improved. No additional recommendations are made. Labs, x-rays, and medications are reviewed. The patient could be transferred out to the cardiology floor. We will continue to follow and make a recommendation where appropriate. Time with Patient: Less than 30
[2022-05-31 11:54] LABS: Glucose,Whole Blood 122 mg/dL (70-110)
--- NOTE | 2022-05-31 12:40 | P.PN ---
Subjective Progress Note Date: 05/31/22 Principal diagnosis: abdominal pain Patient is doing well, she is complaining about uncontrolled pain because he was not given [place] which she takes at home earlier. Still having abdominal distention. No significant nausea or vomiting. No fevers or chills. No chest pain or shortness of breath. Objective - Vital Signs Vital signs: Vital Signs Temp 98.1 F 05/31/22 08:00 Pulse 78 05/31/22 11:16 Resp 18 05/31/22 08:00 BP 99/75 05/31/22 08:00 Pulse Ox 96 05/31/22 08:00 FiO2 50 05/22/22 16:00 Intake & Output 05/30/22 05/31/22 05/31/22 18:59 06:59 18:59 Intake Total 600 200 Output Total 2900 1200 1300 Balance -2300 -1200 -1100 Weight 87.3 kg Intake: Oral 600 200 Output: Urine 2900 1200 1300 Other: Voiding Method Toilet Toilet Toilet # Voids 4 1 # Bowel Movements 1 ABP, PAP, CO, CI - Last Documented Arterial Blood Pressure 104/53 Pulmonary Artery Pressure 50/20 Cardiac Output 3.9 Cardiac Index 2.1 - Exam General: non toxic, no distress, appears at stated age, obese Derm: no unusual rashes/lesions, warm Head: atraumatic, normocephalic, symmetric Eyes: EOMI, no lid lag, anicteric sclera, pupils equal round reactive to light ENT: Nose and ears atraumatic Neck: No cervical lymphadenopathy, trachea midline, supple Mouth: no lip lesion, mucus membranes moist Cardiovascular: S1S2 reg, systolic murmur appreciated, positive dorsalis pedis pulse bilateral, 1+ bilateral lower extremity pitting edema Lungs: Bibasilar rales appreciated without wheezing, no accessory muscle use Abdominal: Distended with minimal tenderness, no guarding Ext: muscle strength 5 out of 5 in all 4 extremities grossly, no gross muscle atrophy, no contractures, Neuro: CN II-XI grossly intact, no gross focal neuro deficits Psych: Alert, oriented, appropriate affect - Labs CBC & Chem 7: 05/31/22 06:52 05/31/22 06:52 Labs: Abnormal Lab Results - Last 24 Hours (Table) 05/30/22 05/30/22 05/30/22 Range/Units 15:09 16:29 19:38 WBC (3.8-10.6) k/uL RBC (3.80-5.40) m/uL Hgb (11.4-16.0) gm/dL Hct (34.0-46.0) % Neutrophils # (1.3-7.7) k/uL Sodium 129 L (137-145) mmol/L Chloride 92 L (98-107) mmol/L Carbon Dioxide (22-30) mmol/L BUN 19 H (7-17) mg/dL Glucose 156 H (74-99) mg/dL POC Glucose (mg/dL) 168 H 119 H (70-110) mg/dL Calcium 8.2 L (8.4-10.2) mg/dL AST (14-36) U/L ALT (4-34) U/L Alkaline Phosphatase (38-126) U/L Total Protein (6.3-8.2) g/dL 05/31/22 05/31/22 05/31/22 Range/Units 06:24 06:52 06:52 WBC 13.0 H (3.8-10.6) k/uL RBC 3.12 L (3.80-5.40) m/uL Hgb 10.0 L (11.4-16.0) gm/dL Hct 29.5 L (34.0-46.0) % Neutrophils # 10.8 H (1.3-7.7) k/uL Sodium 130 L (137-145) mmol/L Chloride 91 L (98-107) mmol/L Carbon Dioxide 31 H (22-30) mmol/L BUN 19 H (7-17) mg/dL Glucose 139 H (74-99) mg/dL POC Glucose (mg/dL) 116 H (70-110) mg/dL Calcium 8.2 L (8.4-10.2) mg/dL AST 55 H (14-36) U/L ALT 60 H (4-34) U/L Alkaline Phosphatase 277 H (38-126) U/L Total Protein 5.9 L (6.3-8.2) g/dL 05/31/22 Range/Units 11:53 WBC (3.8-10.6) k/uL RBC (3.80-5.40) m/uL Hgb (11.4-16.0) gm/dL Hct (34.0-46.0) % Neutrophils # (1.3-7.7) k/uL Sodium (137-145) mmol/L Chloride (98-107) mmol/L Carbon Dioxide (22-30) mmol/L BUN (7-17) mg/dL Glucose (74-99) mg/dL POC Glucose (mg/dL) 122 H (70-110) mg/dL Calcium (8.4-10.2) mg/dL AST (14-36) U/L ALT (4-34) U/L Alkaline Phosphatase (38-126) U/L Total Protein (6.3-8.2) g/dL Microbiology - Last 24 Hours (Table) 05/29/22 08:30 Urine Culture - Final Urine,Voided Assessment and Plan Plan: #Abdominal bloating #Constipation -KUB nonspecific -Zofran and Reglan PRN for N/V -Simethicone -Continue with bowel regimen -Surgery consulted #Leukocytosis #UTI -Started on Rocephin (D3) -Follow urine culture -ID consulted #Acute blood loss anemia -Expected result of surgery -s/p 2 unit PRBC -Continue to monitor #Hyponatremia, probably hypervolemic -Lasix 40 mg IV BID -Improving -Daily BMP #Acute exacerbation of right-sided heart failure, cor pulmonale in the setting of severe mitral valve disease #Severe mitral regurgitation with moderate to severe stenosis #Severe pulmonary hypertension #Nonobstructive coronary artery disease #Hypertension -Cardiothoracic surgery on board -Status post mitral valve replacement, tricuspid valve repair, exclusion of the left atrial appendage with a 35mm atrial clip 05/22 -Aspirin, Plavix, statin, beta vince -On Amiodarone for AFib prophylaxis -Strict I's and O's, daily weights #Transaminitis secondary to hepatic congestion -Improving with diuresis -Continue to monitor Resolved: Acute hypoxic respiratory failure, acute kidney injury, leukocytosis
[2022-05-31] MEDS: polyethylene glycoL 3350 17 GM POWD.PACK PO SCH (14:58)
[2022-05-31 16:24] LABS: Glucose,Whole Blood 159 mg/dL (70-110)
--- NOTE | 2022-05-31 16:27 | P.PN ---
Subjective Progress Note Date: 05/31/22 CHIEF COMPLAINT: Shortness of breath HISTORY OF PRESENT ILLNESS: Patient remains in the ICU status post mitral valve replacement and tricuspid valve repair. Surgical service following regards to abdominal pain and abdominal distention. Which is likely due to patient's fluid overload and some constipation. Patient reports improvement in the abdominal distention. She is currently on diuretics. Patient did have bowel movements. She denies any nausea or vomiting. She is tolerating regular diet. Afebrile. WBC is 13 H3 10 platelets 287 sodium is 1:30 potassium 3.5 creatinine 0.75 total bili 0.8 AST 55 ALT 60 alk phos 277 abdominal ultrasound no entry abdominal ascites. No gallstones noted. PHYSICAL EXAM: VITAL SIGNS: Reviewed. GENERAL: Well-developed in no acute distress. HEENT: No sclera icterus. Extraocular movements grossly intact. Moist buccal mucosa. Head is atraumatic, normocephalic. ABDOMEN: Softer. Distended but decreased from yesterday. Minimal epigastric tenderness NEUROLOGIC: Alert and oriented. Cranial nerves II through XII grossly intact. Extremities: Edema bilaterally ASSESSMENT: 1. Abdominal pain and abdominal distention with computed tomography scan showi ng evidence of abdominal wall edema which is likely contributing to patient's abdominal distention as well as mild constipation 2. History of H. pylori 3. Status post mitral valve replacement and tricuspid valve repair 05/22/[address] Montaño 4. UTI 5. Hyponatremia 6. Leukocytosis 7. Hypomagnesemia 8. Mildly elevated LFTs PLAN: -Continue ICU management and supportive care -Continue diuretics -Continue lactulose and stool softeners -Encouraged patient ambulate and increase activity level Physician Jewelry Maker note has been reviewed by physician. Signing provider agrees with the documented findings, assessment, and plan of care. Objective - Vital Signs Vital signs: Vital Signs Temp 98.1 F 05/31/22 08:00 Pulse 78 05/31/22 11:16 Resp 18 05/31/22 08:00 BP 99/75 05/31/22 08:00 Pulse Ox 96 05/31/22 08:00 FiO2 50 05/22/22 16:00 Intake & Output 05/30/22 05/31/22 05/31/22 18:59 06:59 18:59 Intake Total 600 200 Output Total 2900 1200 1300 Balance -2300 -1200 -1100 Weight 87.3 kg Intake: Oral 600 200 Output: Urine 2900 1200 1300 Other: Voiding Method Toilet Toilet Toilet # Voids 4 1 # Bowel Movements 1 ABP, PAP, CO, CI - Last Documented Arterial Blood Pressure 104/53 Pulmonary Artery Pressure 50/20 Cardiac Output 3.9 Cardiac Index 2.1 - Labs CBC & Chem 7: 05/31/22 06:52 05/31/22 06:52 Labs: Abnormal Lab Results - Last 24 Hours (Table) 05/30/22 05/30/22 05/30/22 Range/Units 15:09 16:29 19:38 WBC (3.8-10.6) k/uL RBC (3.80-5.40) m/uL Hgb (11.4-16.0) gm/dL Hct (34.0-46.0) % Neutrophils # (1.3-7.7) k/uL Sodium 129 L (137-145) mmol/L Chloride 92 L (98-107) mmol/L Carbon Dioxide (22-30) mmol/L BUN 19 H (7-17) mg/dL Glucose 156 H (74-99) mg/dL POC Glucose (mg/dL) 168 H 119 H (70-110) mg/dL Calcium 8.2 L (8.4-10.2) mg/dL AST (14-36) U/L ALT (4-34) U/L Alkaline Phosphatase (38-126) U/L Total Protein (6.3-8.2) g/dL 05/31/22 05/31/22 05/31/22 Range/Units 06:24 06:52 06:52 WBC 13.0 H (3.8-10.6) k/uL RBC 3.12 L (3.80-5.40) m/uL Hgb 10.0 L (11.4-16.0) gm/dL Hct 29.5 L (34.0-46.0) % Neutrophils # 10.8 H (1.3-7.7) k/uL Sodium 130 L (137-145) mmol/L Chloride 91 L (98-107) mmol/L Carbon Dioxide 31 H (22-30) mmol/L BUN 19 H (7-17) mg/dL Glucose 139 H (74-99) mg/dL POC Glucose (mg/dL) 116 H (70-110) mg/dL Calcium 8.2 L (8.4-10.2) mg/dL AST 55 H (14-36) U/L ALT 60 H (4-34) U/L Alkaline Phosphatase 277 H (38-126) U/L Total Protein 5.9 L (6.3-8.2) g/dL 05/31/22 Range/Units 11:53 WBC (3.8-10.6) k/uL RBC (3.80-5.40) m/uL Hgb (11.4-16.0) gm/dL Hct (34.0-46.0) % Neutrophils # (1.3-7.7) k/uL Sodium (137-145) mmol/L Chloride (98-107) mmol/L Carbon Dioxide (22-30) mmol/L BUN (7-17) mg/dL Glucose (74-99) mg/dL POC Glucose (mg/dL) 122 H (70-110) mg/dL Calcium (8.4-10.2) mg/dL AST (14-36) U/L ALT (4-34) U/L Alkaline Phosphatase (38-126) U/L Total Protein (6.3-8.2) g/dL Microbiology - Last 24 Hours (Table) 05/29/22 08:30 Urine Culture - Final Urine,Voided
[2022-05-31 20:03] LABS: Glucose,Whole Blood 119 mg/dL (70-110)
[2022-05-31] MEDS: CALCIUM CARBONATE 500 MG CHEWABLE PO PRN (20:50)
[2022-05-31] MEDS: SENNOSIDES-DOCUSATE SODIUM 1 EACH TAB PO SCH (20:52)
[2022-06-01] MEDS: HYDROcodone/APAP 7.5-325MG 1 EACH TAB PO PRN ×4 (03:02→20:56)
[2022-06-01 06:38] LABS: Glucose,Whole Blood 111 mg/dL (70-110)
[2022-06-01 06:39] LABS: ALT 90 U/L (4-34); AST 150 U/L (14-36); African American GFR (CKD) >90 (>60 ml/min/1.73 sqM); Albumin 3.9 g/dL (3.5-5.0); Alkaline Phosphatase 413 U/L (38-126); Anion Gap 6 mmol/L; Blood Urea Nitrogen 22 mg/dL (7-17); C Reactive Protein 4.4 mg/dL (<1.0); Carbon Dioxide 38 mmol/L (22-30); Chloride 85 mmol/L (98-107); Glucose 88 mg/dL (74-99); Magnesium 1.8 mg/dL (1.6-2.3); Non-African American GFR(CKD) 89 (>60 ml/min/1.73 sqM); Potassium 4.3 mmol/L (3.5-5.1); Sodium 129 mmol/L (137-145); Total Bilirubin 0.6 mg/dL (0.2-1.3); Total Protein 6.6 g/dL (6.3-8.2)
[2022-06-01 06:41] LABS: HCT 30.9 % (34.0-46.0); HGB 10.3 gm/dL (11.4-16.0); MCH 31.6 pg (25.0-35.0); MCHC 33.5 g/dL (31.0-37.0); MCV 94.3 fL (80.0-100.0); Mean Platelet Volume 8.2; Platelet Count 351 k/uL (150-450); RBC 3.28 m/uL (3.80-5.40); RDW 15.5 % (11.5-15.5); WBC 15.7 k/uL (3.8-10.6)
[2022-06-01] MEDS: INSULIN ASPART (NovoLOG) 100 UNIT/ML VIAL SQ SCH ×4 (06:42→20:48)
[2022-06-01] MEDS: PANTOPRAZOLE 40 MG TABLET PO SCH ×2 (06:48→16:51)
[2022-06-01] MEDS: ASCORBIC ACID 500 MG TAB PO SCH ×2 (06:48→16:51)
--- NOTE | 2022-06-01 07:00 | XR ---
EXAMINATION TYPE: XR chest 1V portable DATE OF EXAM: 06/01/2022 HISTORY: postoperative cardiac surgery COMPARISON: 05/31/2022 TECHNIQUE: Single view of the chest is submitted. FINDINGS: Post operative changes of CABG. No sizeable pneumothorax. Scattered Pleural-parenchymal opacities may reflect atelectasis demonstrate interval improvement.. The heart is mildly enlarged. IMPRESSION: 1. Scattered Pleural-parenchymal opacities may reflect atelectasis demonstrate interval improvement. .
[2022-06-01] MEDS: IPRATROPIUM-ALBUTEROL 3 ML NEB INHALATION SCH ×4 (08:42→19:57)
[2022-06-01] MEDS: SYMBICORT 160-4.5 MCG INHALER INHALATION SCH ×2 (08:42→20:01)
[2022-06-01] MEDS: MAGNESIUM SULFATE-D5W PMX 1 GM in DEXTROSE/WATER 1 100ML.BAG IVPB SCH ×2 (08:44→09:59)
[2022-06-01] MEDS: HEPARIN SODIUM,PORCINE/PF 5,000 UNIT/0.5 ML SYRINGE SQ SCH ×2 (08:44→16:51)
[2022-06-01] MEDS: AMIODARONE 200 MG TAB PO SCH (08:44)
[2022-06-01] MEDS: CITALOPRAM HYDROBROMIDE 20 MG TAB PO SCH ×2 (08:45→20:56)
[2022-06-01] MEDS: LACTULOSE 20 GM/30 ML CUP PO SCH (08:45)
[2022-06-01] MEDS: SIMETHICONE 80 MG CHEWABLE PO SCH ×4 (08:45→21:00)
[2022-06-01] MEDS: METOPROLOL TARTRATE 25 MG TAB PO SCH ×2 (08:45→20:56)
[2022-06-01] MEDS: FUROSEMIDE 10 MG/ML 4 ML VIAL IV SCH ×2 (08:45→17:34)
[2022-06-01] MEDS: ASPIRIN 325 MG TAB PO SCH (08:45)
[2022-06-01] MEDS: POTASSIUM CHLORIDE ER 20 MEQ TAB.ER PO SCH (08:45)
[2022-06-01] MEDS: CALCIUM CARBONATE 500 MG CHEWABLE PO PRN ×2 (08:46→20:56)
--- NOTE | 2022-06-01 10:16 | P.PN ---
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 Past medical history significant for pulmonary hypertension with a recent RVSP 86 mmHg, mild nonobstructive coronary artery disease by heart catheterization to her circumflex coronary artery, hypertension, chronic tobacco abuse although has not smoked in 3 weeks, COPD with a previous pulmonary function test showing an FEV1 of 42% of predicted value with a base volume of 1.04 L, history of SVT, remote history of pneumonia, history of depression and family history of coronary artery disease. POD #10 chordal preserving mitral valve replacement using a 27 mm Mosaic porcine bioprosthesis, tricuspid valve repair with ring annuloplasty using a 28 mm MC3 ring, exclusion of the left atrial appendage using a 35 mm AtriClip, intraopera tive transesophageal echocardiogram and epi-aortic scanning Postoperative acute blood loss anemia, expected given hemodilution and cardiopulmonary bypass pump. The patient was seen and examined in follow-up today 06/01/2022 at her bedside in the intensive care unit. The patient is quite anxious and frustrated this morning, feels like her abdomen isn't getting any better and is complaining of some abdominal discomfort. She denies any complaints of shortness of breath at this time and states I feel my heart is better although my abdomen isn't getting any better. She continues to have bowel movements daily, denies any complaints of diarrhea. The patient also reports she had one episode of emesis this morning. Oxygen saturations are 97% on room air and she is achieving 1500 mL on her incentive spirometry with much encouragement. Patient is ambulating in the hallway with standby assistance from nursing staff and therapy staff. Needs encouragement with ambulating. Laboratory results this morning show a WBC count of 15.7, hemoglobin 10.3, hematocrit 30.9, platelets 351, sodium 129, potassium 4.3, chloride 85, CO2 38, BUN 22, creatinine 0.74, glucose 88, calcium 9.0, magnesium 1.8, AST 150, ALT 90 and alk phos 413. An abdominal ultrasound was completed yesterday which showed no intra-abdominal ascites and no gallstones noted. The patient continues to tolerate an oral diet. She continues on lactulose and stool softeners. She had been afebrile the last 24 hours. Chest x-ray was reviewed. Objective - Vital Signs Vital signs: Vital Signs Temp 98.0 F 06/01/22 04:00 Pulse 82 06/01/22 08:56 Resp 22 06/01/22 04:00 BP 108/96 06/01/22 04:00 Pulse Ox 97 06/01/22 04:00 FiO2 50 05/22/22 16:00 Intake & Output 05/31/22 06/01/22 06/01/22 18:59 06:59 18:59 Intake Total 250 Output Total 2300 2400 Balance -2049 -2399 Intake: IV 50 cefTRIAXone 2 gm In 50 Sodium Chloride 0.9% 50 ml @ 100 mls/hr IVPB Q24H [facility] Rx#:[id number] Oral 200 Output: Urine 0 2400 Other: Voiding Method Toilet Toilet # Voids 1 # Bowel Movements 1 ABP, PAP, CO, CI - Last Documented Arterial Blood Pressure 104/53 Pulmonary Artery Pressure 50/20 Cardiac Output 3.9 Cardiac Index 2.1 - Exam CONSTITUTIONAL: Sitting up to the bedside chair in the intensive care unit, anxious and agitated, cooperative, no apparent acute distress. HEENT: Neck is supple, no JVD, no lymphadenopathy. RESPIRATORY: Lungs sounds essentially clear throughout, diminished to her bilateral bases. Respirations are symmetrical and nonlabored. Currently on room air oxygen saturations 97%. Able to achieve 1500 mL on her incentive spirometry. Strong cough. CARDIOVASCULAR: Regular rhythm and rate. S1 and S2 present, negative for S3, gallop or murmur. Sternum is stable. Palpable peripheral pulses bilaterally, +1 to +2 edema to her bilateral lower extremities. No calf pain or tenderness noted. Heart hugger in place with patient demonstrating appropriate use. Knee- high MARIAM hose and sequential compression devices in place to her bilateral lower extremities. GASTROINTESTINAL: Abdomen soft, nontender, distended. Active bowel sounds present 4 quadrants. Tolerating diet. Passing flatus. No guarding or rigidity. Bowel movement yesterday 05/31/2022. GENITOURINARY: Continues to void. 2000 mL output last 8 hours. INTEGUMENTARY: Skin is warm and dry with no evidence of clubbing or cyanosis. Midline sternal incision clean dry and well approximated, covered with dry intact dressing. NEUROLOGIC: Cranial nerves II through XII intact. No focal deficits. MUSKULOSKELETAL: Able to move all extremities, strength equal bilaterally. PSYCHIATRIC: Alert and oriented to person place and time, appropriate affect, intact judgment and insight. - Allied health notes Allied health notes reviewed: nursing - Labs CBC & Chem 7: 06/01/22 05:38 12 05:38 Labs: Abnormal Lab Results - Last 24 Hours (Table) 05/31/22 05/31/22 05/31/22 Range/Units 11:53 16:22 20:02 WBC (3.8-10.6) k/uL RBC (3.80-5.40) m/uL Hgb (11.4-16.0) gm/dL Hct (34.0-46.0) % Sodium (137-145) mmol/L Chloride (98-107) mmol/L Carbon Dioxide (22-30) mmol/L BUN (7-17) mg/dL POC Glucose (mg/dL) 122 H 159 H 119 H (70-110) mg/dL AST (14-36) U/L ALT (4-34) U/L Alkaline Phosphatase (38-126) U/L C-Reactive Protein (<1.0) mg/dL Procalcitonin (0.02-0.09) ng/mL 06/01/22 06/01/22 06/01/22 Range/Units 05:38 05:38 05:38 WBC 15.7 H (3.8-10.6) k/uL RBC 3.28 L (3.80-5.40) m/uL Hgb 10.3 L (11.4-16.0) gm/dL Hct 30.9 L (34.0-46.0) % Sodium 129 L (137-145) mmol/L Chloride 85 L (98-107) mmol/L Carbon Dioxide 38 H (22-30) mmol/L BUN 22 H (7-17) mg/dL POC Glucose (mg/dL) (70-110) mg/dL AST 150 H (14-36) U/L ALT 90 H (4-34) U/L Alkaline Phosphatase 413 H (38-126) U/L C-Reactive Protein 4.4 H (<1.0) mg/dL Procalcitonin 0.14 H (0.02-0.09) ng/mL 06/01/22 Range/Units 06:36 WBC (3.8-10.6) k/uL RBC (3.80-5.40) m/uL Hgb (11.4-16.0) gm/dL Hct (34.0-46.0) % Sodium (137-145) mmol/L Chloride (98-107) mmol/L Carbon Dioxide (22-30) mmol/L BUN (7-17) mg/dL POC Glucose (mg/dL) 111 H (70-110) mg/dL AST (14-36) U/L ALT (4-34) U/L Alkaline Phosphatase (38-126) U/L C-Reactive Protein (<1.0) mg/dL Procalcitonin (0.02-0.09) ng/mL - Imaging and Cardiology Chest x-ray: report reviewed, image reviewed Assessment and Plan Assessment: 1. 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 Preserved left ventricular systolic function, moderate right ventricular dysfunction, EF 55-60% 3. Moderate tricuspid valve regurgitation, status post tricuspid valve repair 4. Acute on chronic diastolic heart failure 5. Transaminitis 6. History of mild nonobstructive coronary artery disease 7. Hypertension 8. Hyperlipidemia, treated, cholesterol 196, LDL 99, triglycerides 254 9. Abdominal distention, likely secondary to constipation 10. Previous tobacco dependence with recent cessation 11. Severe COPD, preoperative FEV1 42% of predicted 12. History of supraventricular tachycardia 13. Depression 14. Remote history of pneumonia 15. Family history of coronary artery disease 16. Postoperative acute blood loss anemia, expected Plan: 1. Continue to maximize medical therapy with aspirin, Plavix and beta vince. Statin was placed on hold by cardiology due to her liver enzymes trending up, amiodarone was decreased to 200 mg by mouth daily. Continue to monitor AST and ALT, once normalized her statin will be restarted. 3. Encourage incentive spirometry use 10 times every hour while awake. Bronchodilators per pulmonology/critical care management. 4. Increase activity as tolerated. PT/OT/cardiac rehab following. Shower daily. 5. Will monitor daily labs and chest x-rays. Electrolyte replacement per protocol. Continue IV Lasix 40 mg twice a day. 6. GI/DVT prophylaxis. Continue protonix BID, tums PRN. 7. Pain control with current medication regimen. Avoid narcotics 8. Insulin management per internal medicine service. Preoperative hemoglobin A1c 6.4% 9. Strict accurate intake and output. Daily weights 10. Transfer orders for 3 S. cardiac stepdown unit when bed available. 11. Discharge planning in progress. Anticipate discharge to home with home care in 24-48 hours. 12. Continue Rocephin 2 g IV piggyback every 24 hours for emperic coverage managed by infectious disease. 13. Constipation management per primary care and Gen. surgery recommendations. 14. More recommendations to follow based on patient's clinical course. Time with Patient: Greater than 30
--- NOTE | 2022-06-01 10:55 | P.PN ---
Progress Note - Text Progress Note Date: 06/01/22 Patient remains stable. She still has issues with constipation. She is tolerating regular diet. On exam vital signs are stable. Abdomen soft. Patient will still continue cathartic medication. We will follow with you.
[2022-06-01 11:49] LABS: Glucose,Whole Blood 129 mg/dL (70-110)
--- NOTE | 2022-06-01 11:58 | P.PN ---
Subjective Progress Note Date: 06/01/22 Principal diagnosis: ICU management. Reevaluated today on 05/23/22, patient is now postoperative day #1chordal preserving mitral valve replacement using a 27 mm Mosaic porcine bioprosthesis, tricuspid valve repair with ring annuloplasty using a 28 mm MC3 ring, exclusion of the left atrial appendage using a 35 mm AtriClip, intraoperative transesophageal echocardiogram and epi-aortic scanning. Patient was extubated last night around 7 PM, and she tolerated the extubation well. Patient remains in the ICU, denies any shortness of breath, she is in sinus rhythm, hemodynamically stable however she is still on low dose of Primacor, and amiodarone. No major issues over the last 12 hours. Patient is resting in a bedside chair, he is on few liters nasal cannula, chest x-ray showed minimal postoperative changes and atelectasis. Overall the patient is doing great. CBC is relatively normal hemoglobin is 9.4. Basic metabolic profile is normal. Cardiac output is 5.7, cardiac index is 3.1. CVP is 13. Reevaluated today on 05/24/22, patient remains in the ICU, she is on 3 L nasal cannula, she remains on Primacor at 0.1 mcg/kg/m, she is also on insulin 20 units per hour, IV fluid 0.9 normal saline at 20 mL per hour. Continues to have Hoagland-Celso catheter in place, her PA pressures are 50/23 and CVP is 11. Continues to have right-sided chest tube and mediastinal chest tube. WBC count is 15.6 hemoglobin is 8. Basic metabolic profile is normal renal profile is normal. Chest x-ray this a.m. showed minimal left lower lobe atelectasis, and her Hoagland-Celso catheter remains present Reevaluated today on 06/21/22, patient remains in the ICU, patient is postoperative day #3,chordal preserving mitral valve replacement using a 27 mm Mosaic porcine bioprosthesis, tricuspid valve repair with ring annuloplasty using a 28 mm MC3 ring, exclusion of the left atrial appendage using a 35 mm AtriClip, intraoperative transesophageal echocardiogram and epi-aortic scanning. Cardiac output remains marginal and the patient remains on Primacor, blood pressure is marginal, urine output is marginal and she is receiving Bumex. Pulmonary-kumar she is on 2 L nasal cannula, chest x-ray showed mostly by basilar atelectasis, no evidence of congestive heart failure. WBC count of 10 hemoglobin is 7, electrolytes are normal renal profile is normal. Cardiac output/cardiac index 4.1/2.2. CVP is 15. He a pressure 52/20 Progress note dated 05/27/2022. 61-year-old female postop day #5, post mitral valve replacement, tricuspid valve repair, and exclusion of left atrial appendage. Currently, the patient's on 2 L of oxygen. She's getting dopamine at 1 mcg/kg/m. She is getting saline at KVO. White count 8.7, hemoglobin 9.8, hematocrit 28.5, and platelet count 269,000. Sodium 132, with a normal potassium, chloride, CO2, anion gap, BUN, and creatinine. Chest x-ray shows postoperative changes, with small bilateral effusions. Progress note dated 05/28/2022. 61-year-old female postop day #6, status post mitral valve replacement, tricuspid valve repair, and exclusion of left atrial appendage. Currently, the patient's on room air. She's not receiving any IV fluids. She sitting in a chair of next to her bed. Yesterday, she was on 2 L and on a small dose of dopamine. She is on neither today. White count 11, hemoglobin 10.5, hematocrit 31.8, sodium 132, potassium 4.1, chlorides 100, CO2 23, BUN 18 and creatinine 0.65. Platelet count was normal at 201,000. Chest x-ray shows small effusions, and basilar atelectasis. Progress note dated 05/29/2022. 61-year-old female, postop day #7, status post mitral valve replacement, tricuspid valve repair, and exclusion of left atrial appendage. The patient is currently on room air. She's not receiving any IV fluids. He stable. She sitting up in a chair next to her bed. White count 13.5, hemoglobin 10.4, and p latelet count was normal. Sodium 132, potassium 4.1, chlorides 97, CO2 27, BUN 19, creatinine 0.68. Chest x-ray shows similar findings from yesterday, with very tiny bilateral effusions. Progress note dated 05/30/2022. 61-year-old female, postop day #8, status post mitral valve replacement, tric uspid valve repair, and exclusion of left atrial appendage. She is on room air. Not receiving any IV fluids. She's complaining this morning of abdominal distention. White count 13.3, hemoglobin 10.2, hematocrit 30.3, platelet count normal. Sodium 131, potassium 3.9, chlorides 95, CO2 28, BUN 20, creatinine 0.7. Chest x-ray shows small bilateral effusions, with some mild basilar atelectasis. Progress note dated 05/31/2022. 61-year-old female seen again in room 266. She is postop day #9, status post mitral valve replacement, tricuspid valve repair, and exclusion of left atrial appendage. She's on room air. She's not on any IV fluids. Clinically, she is very stable. Labs include a white count of 13, hemoglobin 10, hematocrit 29.5, and platelet count of 287,000. Sodium 1:30, potassium 3.5, chlorides 91, CO2 31, BUN 19, and creatinine 0.75. Chest x-ray shows cardiomegaly, and small bilateral effusions. Progress note dated 06/01/2022. 61-year-old female who is postop day #10, status post mitral valve replacement and tricuspid valve repair. She seen again in room 266. She is on room air. No IV fluids. She is receiving replacement magnesium. The patient is still having significant abdominal distention. White count 15.7, hemoglobin 10.3, hematocrit 30.9, and platelet count 351,000. Sodium 129, potassium 4.3, chloride 85, CO2 38, BUN 22, creatinine 0.74. Pro-calcitonin level is 0.14. Chest x-ray shows changes of atelectasis. Objective - Vital Signs Vital signs: Vital Signs Temp 98.0 F 06/01/22 04:00 Pulse 82 06/01/22 08:56 Resp 22 06/01/22 04:00 BP 108/96 06/01/22 04:00 Pulse Ox 97 06/01/22 04:00 FiO2 50 05/22/22 16:00 Intake & Output 05/31/22 06/01/22 06/01/22 18:59 06:59 18:59 Intake Total 250 Output Total 2300 2400 Balance -2049 -2399 Intake: IV 50 cefTRIAXone 2 gm In 50 Sodium Chloride 0.9% 50 ml @ 100 mls/hr IVPB Q24H [facility] Rx#:[id number] Oral 200 Output: Urine 2299 2399 Other: Voiding Method Toilet Toilet # Voids 1 # Bowel Movements 1 ABP, PAP, CO, CI - Last Documented Arterial Blood Pressure 104/53 Pulmonary Artery Pressure 50/20 Cardiac Output 3.9 Cardiac Index 2.1 - Exam No acute distress, oriented 3. Currently on room air. HEENT examination is grossly unremarkable. Neck supple. Full range of motion. No adenopathy thyromegaly or neck vein distention. Cardiovascular examination reveals regular rhythm rate. S1-S2 normal. No S3 or S4. No discernible murmur noted. Heart rate 82 bpm. Lungs reveal scattered bilateral rhonchi. No wheezes or crackles. Breath sounds equal bilaterally. Room air saturation 97 %. Abdomen distended, and tympanitic. Bowel sounds are noted. No masses. Minimal tenderness. Extremities are intact. No cyanosis clubbing or edema. Skin is without rash or lesion. Neurologic examination is brief but nonfocal. - Labs CBC & Chem 7: 06/01/22 05:38 06/01/22 05:38 Labs: Abnormal Lab Results - Last 24 Hours (Table) 05/31/22 05/31/22 06/01/22 Range/Units 16:22 20:02 05:38 WBC (3.8-10.6) k/uL RBC (3.80-5.40) m/uL Hgb (11.4-16.0) gm/dL Hct (34.0-46.0) % Sodium 129 L (137-145) mmol/L Chloride 85 L (98-107) mmol/L Carbon Dioxide 38 H (22-30) mmol/L BUN 22 H (7-17) mg/dL POC Glucose (mg/dL) 159 H 119 H (70-110) mg/dL AST 150 H (14-36) U/L ALT 90 H (4-34) U/L Alkaline Phosphatase 413 H (38-126) U/L C-Reactive Protein 4.4 H (<1.0) mg/dL Procalcitonin (0.02-0.09) ng/mL 06/01/22 06/01/22 06/01/22 Range/Units 05:38 05:38 06:36 WBC 15.7 H (3.8-10.6) k/uL RBC 3.28 L (3.80-5.40) m/uL Hgb 10.3 L (11.4-16.0) gm/dL Hct 30.9 L (34.0-46.0) % Sodium (137-145) mmol/L Chloride (98-107) mmol/L Carbon Dioxide (22-30) mmol/L BUN (7-17) mg/dL POC Glucose (mg/dL) 111 H (70-110) mg/dL AST (14-36) U/L ALT (4-34) U/L Alkaline Phosphatase (38-126) U/L C-Reactive Protein (<1.0) mg/dL Procalcitonin 0.14 H (0.02-0.09) ng/mL 06/01/22 Range/Units 11:48 WBC (3.8-10.6) k/uL RBC (3.80-5.40) m/uL Hgb (11.4-16.0) gm/dL Hct (34.0-46.0) % Sodium (137-145) mmol/L Chloride (98-107) mmol/L Carbon Dioxide (22-30) mmol/L BUN (7-17) mg/dL POC Glucose (mg/dL) 129 H (70-110) mg/dL AST (14-36) U/L ALT (4-34) U/L Alkaline Phosphatase (38-126) U/L C-Reactive Protein (<1.0) mg/dL Procalcitonin (0.02-0.09) ng/mL Assessment and Plan Assessment: Postop day #10, status post mitral valve replacement, tricuspid valve repair, and exclusion of left atrial appendage. Routine postoperative ventilator management. Severe rheumatic mitral valve stenosis and severe pulmonary hypertension, with moderate mitral valve regurgitation. Chronic diastolic CHF. History of nonocclusive CAD. Hypertension. 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 History of supraventricular tachycardia. Postoperative blood loss. Postoperative atelectasis. Plan: Plan dated 05/27/2022. The patient appears to be doing relatively well. She is on 2 L. She's getting dopamine at 1 mcg/kg/m. She is resting comfortably. X-ray, labs, and medications are all reviewed. Follow the patient make recommendations along the way. We do encourage continued use of the incentive spirometer. Plan dated 05/28/2022. Today is postop day #6. The patient's currently on room air. Saturations are 98%. The patient's dopamine has been discontinued. Labs, x-rays, and medications are all reviewed. Clinically, the patient is well. She sitting up in a chair next to her bed. She denies any significant breathing issues. We encourage her to continue using the incentive spirometer, and also encourage her to deep breathe, cough, and clear secretions. Plan dated 05/29/2022. Today's postop day #7. The patient's on room air. Saturations are 97-98%. She continues on the incentive spirometer. Labs, x-rays, and medications are reviewed clinically, the patient's very stable. We will continue to follow make recommendations along the way. The patient is also a overflow patient over to 3 S. floor. Plan dated 05/30/2022. Today's postop day #8. Overnight, the patient did develop some abdominal distention. Her abdomen is firm. X-ray shows some basilar atelectasis and small effusions. Labs, x-rays, and medications are reviewed. The patient's on room air. She is not receiving any IV fluids. We will continue to follow make recommendations along the way. Plan dated 05/31/2022. Today is postop day #9. The patient's on room air. No IV fluids. The abdominal symptoms that she was having, heartbeat improved. No additional recommendations are made. Labs, x-rays, and medications are reviewed. The patient could be transferred out to the cardiology floor. We will continue to follow and make a recommendation where appropriate. Plan dated 06/01/2022. Today's postop day #10. The patient's on room air, and no IV fluids. Her abdominal distention is a bit better. Labs, x-rays and medications are reviewed. We will continue to follow make recommendations along the way. Prognosis is guarded. We will continue to follow. Time with Patient: Less than 30
[2022-06-01 13:06] LABS: Band Neutrophils % 2 %; Eosinophils # (M) 0.47 k/uL (0-0.7); Metamyelocytes # (M) 0.16 k/uL (0); Metamyelocytes % 1 %; Monocytes # (M) 1.41 k/uL (0-1.0); Myelocytes # (M) 0.16 k/uL (0); Myelocytes % 1 %; Neutrophils % (M) 79 %; Nucleated Red Blood Cells 0 /100 WBC (0-0); Total Cells Counted 200
[2022-06-01] MEDS: polyethylene glycoL 3350 17 GM POWD.PACK PO SCH (13:09)
--- NOTE | 2022-06-01 13:48 | P.PN ---
Subjective Progress Note Date: 06/01/22 Principal diagnosis: abdominal pain Doing welll. No acute issues. No overnight events. Pain is controlled. Objective - Vital Signs Vital signs: Vital Signs Temp 98.4 F 06/01/22 12:00 Pulse 82 06/01/22 12:00 Resp 18 06/01/22 12:00 BP 108/66 06/01/22 12:00 Pulse Ox 98 06/01/22 12:00 FiO2 50 05/22/22 16:00 Intake & Output 05/31/22 06/01/22 06/01/22 18:59 06:59 18:59 Intake Total 250 200 Output Total 2300 2400 1250 Balance -2050 -2400 -1050 Intake: IV 50 200 Magnesium Sulfate-D5w Pmx 200 1 gm In Dextrose/Water 1 100ml.bag @ 100 mls/hr IVPB Q1H [facility] Rx#: [id number] cefTRIAXone 2 gm In 50 Sodium Chloride 0.9% 50 ml @ 100 mls/hr IVPB Q24H [facility] Rx#:[id number] Oral 200 Output: Urine 2300 2400 1250 Other: Voiding Method Toilet Toilet Toilet # Voids 1 # Bowel Movements 1 ABP, PAP, CO, CI - Last Documented Arterial Blood Pressure 104/53 Pulmonary Artery Pressure 50/20 Cardiac Output 3.9 Cardiac Index 2.1 - Exam General: non toxic, no distress, appears at stated age, obese Derm: no unusual rashes/lesions, warm Head: atraumatic, normocephalic, symmetric Eyes: EOMI, no lid lag, anicteric sclera, pupils equal round reactive to light ENT: Nose and ears atraumatic Neck: No cervical lymphadenopathy, trachea midline, supple Mouth: no lip lesion, mucus membranes moist Cardiovascular: S1S2 reg, systolic murmur appreciated, positive dorsalis pedis pulse bilateral, 1+ bilateral lower extremity pitting edema Lungs: Bibasilar rales appreciated without wheezing, no accessory muscle use Abdominal: Distended with minimal tenderness, no guarding Ext: muscle strength 5 out of 5 in all 4 extremities grossly, no gross muscle atrophy, no contractures, Neuro: CN II-XI grossly intact, no gross focal neuro deficits Psych: Alert, oriented, appropriate affect - Labs CBC & Chem 7: 06/01/22 05:38 12/10/22 05:38 Labs: Abnormal Lab Results - Last 24 Hours (Table) 05/31/22 05/31/22 06/01/22 Range/Units 16:22 20:02 05:38 WBC (3.8-10.6) k/uL RBC (3.80-5.40) m/uL Hgb (11.4-16.0) gm/dL Hct (34.0-46.0) % Neutrophils # (Manual) (1.3-7.7) k/uL Monocytes # (Manual) (0-1.0) k/uL Metamyelocytes # (Man) (0) k/uL Myelocytes # (Manual) (0) k/uL Sodium 129 L (137-145) mmol/L Chloride 85 L (98-107) mmol/L Carbon Dioxide 38 H (22-30) mmol/L BUN 22 H (7-17) mg/dL POC Glucose (mg/dL) 159 H 119 H (70-110) mg/dL AST 150 H (14-36) U/L ALT 90 H (4-34) U/L Alkaline Phosphatase 413 H (38-126) U/L C-Reactive Protein 4.4 H (<1.0) mg/dL Procalcitonin (0.02-0.09) ng/mL 06/01/22 06/01/22 06/01/22 Range/Units 05:38 05:38 06:36 WBC 15.7 H (3.8-10.6) k/uL RBC 3.28 L (3.80-5.40) m/uL Hgb 10.3 L (11.4-16.0) gm/dL Hct 30.9 L (34.0-46.0) % Neutrophils # (Manual) 12.70 H (1.3-7.7) k/uL Monocytes # (Manual) 1.41 H (0-1.0) k/uL Metamyelocytes # (Man) 0.16 H (0) k/uL Myelocytes # (Manual) 0.16 H (0) k/uL Sodium (137-145) mmol/L Chloride (98-107) mmol/L Carbon Dioxide (22-30) mmol/L BUN (7-17) mg/dL POC Glucose (mg/dL) 111 H (70-110) mg/dL AST (14-36) U/L ALT (4-34) U/L Alkaline Phosphatase (38-126) U/L C-Reactive Protein (<1.0) mg/dL Procalcitonin 0.14 H (0.02-0.09) ng/mL 06/01/22 Range/Units 11:48 WBC (3.8-10.6) k/uL RBC (3.80-5.40) m/uL Hgb (11.4-16.0) gm/dL Hct (34.0-46.0) % Neutrophils # (Manual) (1.3-7.7) k/uL Monocytes # (Manual) (0-1.0) k/uL Metamyelocytes # (Man) (0) k/uL Myelocytes # (Manual) (0) k/uL Sodium (137-145) mmol/L Chloride (98-107) mmol/L Carbon Dioxide (22-30) mmol/L BUN (7-17) mg/dL POC Glucose (mg/dL) 129 H (70-110) mg/dL AST (14-36) U/L ALT (4-34) U/L Alkaline Phosphatase (38-126) U/L C-Reactive Protein (<1.0) mg/dL Procalcitonin (0.02-0.09) ng/mL Assessment and Plan Plan: #Abdominal bloating #Constipation -KUB nonspecific -Zofran and Reglan PRN for N/V -Simethicone -Continue with bowel regimen -Surgery consulted #Leukocytosis #UTI -Started on Rocephin (D3) -Follow urine culture -ID consulted #Acute blood loss anemia -Expected result of surgery -s/p 2 unit PRBC -Continue to monitor #Hyponatremia, probably hypervolemic -Lasix 40 mg IV BID -Improving -Daily BMP #Acute exacerbation of right-sided heart failure, cor pulmonale in the setting of severe mitral valve disease #Severe mitral regurgitation with moderate to severe stenosis #Severe pulmonary hypertension #Nonobstructive coronary artery disease #Hypertension -Cardiothoracic surgery on board -Status post mitral valve replacement, tricuspid valve repair, exclusion of the left atrial appendage with a 35mm atrial clip 05/22 -Aspirin, Plavix, statin, beta vince -On Amiodarone for AFib prophylaxis -Strict I's and O's, daily weights #Transaminitis secondary to hepatic congestion -Improving with diuresis -Continue to monitor Resolved: Acute hypoxic respiratory failure, acute kidney injury, leukocytosis
[2022-06-01] MEDS ORDERED: KETOROLAC 15 MG/ML 1 ML VIAL IVP PRN (13:52)
--- NOTE | 2022-06-01 16:01 | P.PN ---
Subjective Progress Note Date: 05/30/22 Principal diagnosis: Leukocytosis Patient is a 61-year-old female with a past medical history taken for pulmonary hypertension mitral regurgitation as well as tricuspid regurgitation who was electively admitted to the hospital 2 weeks ago for mitral valve replacement as well as tricuspid valve repair that was successfully completed patient subsequently has been in the hospital recovering from her surgical procedure, patient did have a urinary symptoms concerning for UTI and elevated white count on today's evaluation that is 05/30/2022, the patient denies having any fever or any chills, the patient is breathing comfortably on room it denies any chest pain shortness of breath or cough has been coming of some abdominal distention but no nausea no vomiting or diarrhea Objective - Vital Signs Vital signs: Vital Signs Temp 97.0 F L 05/30/22 12:00 Pulse 80 05/30/22 12:00 Resp 18 05/30/22 12:00 BP 112/88 05/30/22 12:00 Pulse Ox 96 05/30/22 12:00 FiO2 50 05/22/22 16:00 Intake & Output 05/29/22 05/30/22 05/30/22 18:59 06:59 18:59 Intake Total 1300 200 Output Total 9351 528 0377 Balance 300 -700 -800 Weight 88.6 kg 89.4 kg Intake: IV 50 cefTRIAXone 2 gm In 50 Sodium Chloride 0.9% 50 ml @ 100 mls/hr IVPB Q24H [facility] Rx#:[id number] Oral 1250 200 Output: Urine 4186 011 2442 Other: Voiding Method Toilet Toilet Toilet # Voids 2 # Bowel Movements 1 1 ABP, PAP, CO, CI - Last Documented Arterial Blood Pressure 104/53 Pulmonary Artery Pressure 50/20 Cardiac Output 3.9 Cardiac Index 2.1 - Exam GENERAL DESCRIPTION: Middle-age female up in the chair in no distress RESPIRATORY SYSTEM: Unlabored breathing , decreased breath sounds at bases HEART: S1 S2 regular rate and rhythm , ABDOMEN: Soft , mild distention but no tenderness EXTREMITIES: No edema feet - Labs CBC & Chem 7: 06/01/22 05:38 06/01/22 05:38 Labs: Abnormal Lab Results - Last 24 Hours (Table) 05/29/22 05/29/22 05/30/22 Range/Units 16:57 20:57 05:14 WBC 13.3 H (3.8-10.6) k/uL RBC 3.18 L (3.80-5.40) m/uL Hgb 10.2 L (11.4-16.0) gm/dL Hct 30.3 L (34.0-46.0) % Sodium (137-145) mmol/L Chloride (98-107) mmol/L BUN (7-17) mg/dL Glucose (74-99) mg/dL POC Glucose (mg/dL) 135 H 137 H (70-110) mg/dL Calcium (8.4-10.2) mg/dL 05/30/22 05/30/22 05/30/22 Range/Units 05:14 06:21 11:24 WBC (3.8-10.6) k/uL RBC (3.80-5.40) m/uL Hgb (11.4-16.0) gm/dL Hct (34.0-46.0) % Sodium 131 L (137-145) mmol/L Chloride 95 L (98-107) mmol/L BUN 20 H (7-17) mg/dL Glucose 105 H (74-99) mg/dL POC Glucose (mg/dL) 113 H 117 H (70-110) mg/dL Calcium 8.0 L (8.4-10.2) mg/dL Microbiology - Last 24 Hours (Table) 05/29/22 08:30 Urine Culture - Final Urine,Voided Assessment and Plan (1) Leukocytosis Current Visit: Yes Status: Acute Code(s): D72.829 - ELEVATED WHITE BLOOD CELL COUNT, UNSPECIFIED SNOMED Code(s): 236746577 Plan: 1patient with elevated white count possibly related to the UTI in this patient who do have a urinary symptoms and did have risk factors of Crespo catheter during this hospital stay will need to cover for the enteric gram-negative to be the likely pathogen. 2patient also have some abdominal distention CT abdominal pelvis has been ordered and we'll follow the results 3patient to continue with Rocephin 2 g daily while waiting for the culture to finalize. Time with Patient: Less than 30
--- NOTE | 2022-06-01 16:04 | P.PN ---
Subjective Progress Note Date: 05/31/22 Principal diagnosis: Leukocytosis Patient is a 61-year-old female with a past medical history taken for pulmonary hypertension mitral regurgitation as well as tricuspid regurgitation who was electively admitted to the hospital 2 weeks ago for mitral valve replacement as well as tricuspid valve repair that was successfully completed patient subsequently has been in the hospital recovering from her surgical procedure, patient did have a urinary symptoms concerning for UTI and elevated white count on today's evaluation that is 05/31/2022, the patient remains to be afebrile, the patient is breathing comfortably on room air, the patient denies any chest pain shortness of breath or cough, the patient abdominal touch is slightly decreased no nausea no vomiting and did have a bowel movement Objective - Vital Signs Vital signs: Vital Signs Temp 98.1 F 05/31/22 08:00 Pulse 78 05/31/22 11:16 Resp 18 05/31/22 08:00 BP 99/75 05/31/22 08:00 Pulse Ox 96 05/31/22 08:00 FiO2 50 05/22/22 16:00 Intake & Output 05/30/22 05/31/22 05/31/22 18:59 06:59 18:59 Intake Total 600 200 Output Total 2900 1200 1300 Balance -2300 -1200 -1100 Weight 87.3 kg Intake: Oral 600 200 Output: Urine 2900 1200 1300 Other: Voiding Method Toilet Toilet Toilet # Voids 4 1 # Bowel Movements 1 ABP, PAP, CO, CI - Last Documented Arterial Blood Pressure 104/53 Pulmonary Artery Pressure 50/20 Cardiac Output 3.9 Cardiac Index 2.1 - Exam GENERAL DESCRIPTION: Middle-age female up in the chair in no distress RESPIRATORY SYSTEM: Unlabored breathing , decreased breath sounds at bases HEART: S1 S2 regular rate and rhythm , ABDOMEN: Soft , mild distention but no tenderness EXTREMITIES: No edema feet - Labs CBC & Chem 7: 06/01/22 05:38 06/01/22 05:38 Labs: Abnormal Lab Results - Last 24 Hours (Table) 05/30/22 05/30/22 05/30/22 Range/Units 15:09 16:29 19:38 WBC (3.8-10.6) k/uL RBC (3.80-5.40) m/uL Hgb (11.4-16.0) gm/dL Hct (34.0-46.0) % Neutrophils # (1.3-7.7) k/uL Sodium 129 L (137-145) mmol/L Chloride 92 L (98-107) mmol/L Carbon Dioxide (22-30) mmol/L BUN 19 H (7-17) mg/dL Glucose 156 H (74-99) mg/dL POC Glucose (mg/dL) 168 H 119 H (70-110) mg/dL Calcium 8.2 L (8.4-10.2) mg/dL AST (14-36) U/L ALT (4-34) U/L Alkaline Phosphatase (38-126) U/L Total Protein (6.3-8.2) g/dL 05/31/22 05/31/22 05/31/22 Range/Units 06:24 06:52 06:52 WBC 13.0 H (3.8-10.6) k/uL RBC 3.12 L (3.80-5.40) m/uL Hgb 10.0 L (11.4-16.0) gm/dL Hct 29.5 L (34.0-46.0) % Neutrophils # 10.8 H (1.3-7.7) k/uL Sodium 130 L (137-145) mmol/L Chloride 91 L (98-107) mmol/L Carbon Dioxide 31 H (22-30) mmol/L BUN 19 H (7-17) mg/dL Glucose 139 H (74-99) mg/dL POC Glucose (mg/dL) 116 H (70-110) mg/dL Calcium 8.2 L (8.4-10.2) mg/dL AST 55 H (14-36) U/L ALT 60 H (4-34) U/L Alkaline Phosphatase 277 H (38-126) U/L Total Protein 5.9 L (6.3-8.2) g/dL 05/31/22 Range/Units 11:53 WBC (3.8-10.6) k/uL RBC (3.80-5.40) m/uL Hgb (11.4-16.0) gm/dL Hct (34.0-46.0) % Neutrophils # (1.3-7.7) k/uL Sodium (137-145) mmol/L Chloride (98-107) mmol/L Carbon Dioxide (22-30) mmol/L BUN (7-17) mg/dL Glucose (74-99) mg/dL POC Glucose (mg/dL) 122 H (70-110) mg/dL Calcium (8.4-10.2) mg/dL AST (14-36) U/L ALT (4-34) U/L Alkaline Phosphatase (38-126) U/L Total Protein (6.3-8.2) g/dL Microbiology - Last 24 Hours (Table) 05/29/22 08:30 Urine Culture - Final Urine,Voided Assessment and Plan (1) Leukocytosis Current Visit: Yes Status: Acute Code(s): D72.829 - ELEVATED WHITE BLOOD CELL COUNT, UNSPECIFIED SNOMED Code(s): 278713448 Plan: 1patient with elevated white count possibly related to the UTI in this patient who do have a urinary symptoms and did have risk factors of Crespo catheter during this hospital stay will need to cover for the enteric gram-negative to be the likely pathogen. 2patient also have some abdominal distention CT abdominal pelvis has been suggestive of anasarca no acute abnormality ultrasound has been ordered 3patient to continue with Rocephin 2 g daily while waiting for the culture to finalize and monitor clinical course closely. Time with Patient: Less than 30
--- NOTE | 2022-06-01 16:05 | P.PN ---
Subjective Progress Note Date: 06/01/22 Principal diagnosis: Leukocytosis Patient is a 61-year-old female with a past medical history taken for pulmonary hypertension mitral regurgitation as well as tricuspid regurgitation who was electively admitted to the hospital 2 weeks ago for mitral valve replacement as well as tricuspid valve repair that was successfully completed patient subsequently has been in the hospital recovering from her surgical procedure, patient did have a urinary symptoms concerning for UTI and elevated white count on today's evaluation that is 06/01/2022, the patient continues to be afebrile, the patient is breathing comfortably on room air, the patient denies any chest pain shortness of breath or cough, the patient denies having any nausea no vomiting and abdominal distention has slightly decreased mention she having a bowel movement Objective - Vital Signs Vital signs: Vital Signs Temp 98.4 F 06/01/22 12:00 Pulse 83 06/01/22 15:31 Resp 18 06/01/22 12:00 BP 108/66 06/01/22 12:00 Pulse Ox 98 06/01/22 12:00 FiO2 50 05/22/22 16:00 Intake & Output 05/31/22 06/01/22 06/01/22 18:59 06:59 18:59 Intake Total 250 200 Output Total 2300 2400 1350 Balance -2049 -2400 -1150 Intake: IV 50 200 Magnesium Sulfate-D5w Pmx 200 1 gm In Dextrose/Water 1 100ml.bag @ 100 mls/hr IVPB Q1H [facility] Rx#: [id number] cefTRIAXone 2 gm In 50 Sodium Chloride 0.9% 50 ml @ 100 mls/hr IVPB Q24H [facility] Rx#:[id number] Oral 200 Output: Urine 2300 2400 1350 Other: Voiding Method Toilet Toilet Toilet # Voids 1 # Bowel Movements 1 1 ABP, PAP, CO, CI - Last Documented Arterial Blood Pressure 104/53 Pulmonary Artery Pressure 50/20 Cardiac Output 3.9 Cardiac Index 2.1 - Exam GENERAL DESCRIPTION: Middle-age female up in the chair in no distress RESPIRATORY SYSTEM: Unlabored breathing , decreased breath sounds at bases HEART: S1 S2 regular rate and rhythm , ABDOMEN: Soft , mild distention but no tenderness EXTREMITIES: No edema feet - Labs CBC & Chem 7: 06/01/22 05:38 06/01/22 05:38 Labs: Abnormal Lab Results - Last 24 Hours (Table) 05/31/22 05/31/22 06/01/22 Range/Units 16:22 20:02 05:38 WBC (3.8-10.6) k/uL RBC (3.80-5.40) m/uL Hgb (11.4-16.0) gm/dL Hct (34.0-46.0) % Neutrophils # (Manual) (1.3-7.7) k/uL Monocytes # (Manual) (0-1.0) k/uL Metamyelocytes # (Man) (0) k/uL Myelocytes # (Manual) (0) k/uL Sodium 129 L (137-145) mmol/L Chloride 85 L (98-107) mmol/L Carbon Dioxide 38 H (22-30) mmol/L BUN 22 H (7-17) mg/dL POC Glucose (mg/dL) 159 H 119 H (70-110) mg/dL AST 150 H (14-36) U/L ALT 90 H (4-34) U/L Alkaline Phosphatase 413 H (38-126) U/L C-Reactive Protein 4.4 H (<1.0) mg/dL Procalcitonin (0.02-0.09) ng/mL 06/01/22 06/01/22 06/01/22 Range/Units 05:38 05:38 06:36 WBC 15.7 H (3.8-10.6) k/uL RBC 3.28 L (3.80-5.40) m/uL Hgb 10.3 L (11.4-16.0) gm/dL Hct 30.9 L (34.0-46.0) % Neutrophils # (Manual) 12.70 H (1.3-7.7) k/uL Monocytes # (Manual) 1.41 H (0-1.0) k/uL Metamyelocytes # (Man) 0.16 H (0) k/uL Myelocytes # (Manual) 0.16 H (0) k/uL Sodium (137-145) mmol/L Chloride (98-107) mmol/L Carbon Dioxide (22-30) mmol/L BUN (7-17) mg/dL POC Glucose (mg/dL) 111 H (70-110) mg/dL AST (14-36) U/L ALT (4-34) U/L Alkaline Phosphatase (38-126) U/L C-Reactive Protein (<1.0) mg/dL Procalcitonin 0.14 H (0.02-0.09) ng/mL 06/01/22 Range/Units 11:48 WBC (3.8-10.6) k/uL RBC (3.80-5.40) m/uL Hgb (11.4-16.0) gm/dL Hct (34.0-46.0) % Neutrophils # (Manual) (1.3-7.7) k/uL Monocytes # (Manual) (0-1.0) k/uL Metamyelocytes # (Man) (0) k/uL Myelocytes # (Manual) (0) k/uL Sodium (137-145) mmol/L Chloride (98-107) mmol/L Carbon Dioxide (22-30) mmol/L BUN (7-17) mg/dL POC Glucose (mg/dL) 129 H (70-110) mg/dL AST (14-36) U/L ALT (4-34) U/L Alkaline Phosphatase (38-126) U/L C-Reactive Protein (<1.0) mg/dL Procalcitonin (0.02-0.09) ng/mL Assessment and Plan (1) Leukocytosis Current Visit: Yes Status: Acute Code(s): D72.829 - ELEVATED WHITE BLOOD CELL COUNT, UNSPECIFIED SNOMED Code(s): 139891535 Plan: 1patient with elevated white count possibly related to the UTI in this patient who do have a urinary symptoms and did have risk factors of Crespo catheter during this hospital stay will need to cover for the enteric gram-negative to be the likely pathogen. 2patient also have some abdominal distention CT abdominal pelvis has been suggestive of anasarca no acute abnormality ultrasound did not show any gal lstones 3patient did have slight worsening of the white count urine culture had been negative questionably abdominal source. Will add Flagyl to the current antibiotic regime and repeat a CBC tomorrow morning Time with Patient: Less than 30
[2022-06-01 16:49] LABS: Glucose,Whole Blood 169 mg/dL (70-110)
[2022-06-01] MEDS: metroNIDAZOLE 500 MG TAB PO SCH ×2 (16:51→21:00)
[2022-06-01 20:48] LABS: Glucose,Whole Blood 125 mg/dL (70-110)
[2022-06-01] MEDS: SENNOSIDES-DOCUSATE SODIUM 1 EACH TAB PO SCH (20:57)
[2022-06-02] MEDS: HEPARIN SODIUM,PORCINE/PF 5,000 UNIT/0.5 ML SYRINGE SQ SCH ×4 (00:02→23:02)
[2022-06-02] MEDS: HYDROcodone/APAP 7.5-325MG 1 EACH TAB PO PRN ×4 (01:59→18:09)
[2022-06-02 05:41] LABS: Basophils # (A) 0.1 k/uL (0-0.2); Basophils % (A) 0 %; Eosinophils # (A) 0.4 k/uL (0-0.7); Eosinophils % (A) 3 %; HCT 28.6 % (34.0-46.0); HGB 9.6 gm/dL (11.4-16.0); Hypochromasia Slight; Lymphocytes % (A) 6 %; MCH 31.7 pg (25.0-35.0); MCHC 33.5 g/dL (31.0-37.0); MCV 94.6 fL (80.0-100.0); Mean Platelet Volume 8.1; Monocytes % (A) 6 %; Neutrophils # (A) 13.3 k/uL (1.3-7.7); Neutrophils % (A) 83 %; Platelet Count 294 k/uL (150-450); RBC 3.03 m/uL (3.80-5.40); RDW 15.5 % (11.5-15.5); WBC 16.1 k/uL (3.8-10.6)
[2022-06-02 05:58] LABS: ALT 73 U/L (4-34); AST 97 U/L (14-36); African American GFR (CKD) >90 (>60 ml/min/1.73 sqM); Albumin 3.6 g/dL (3.5-5.0); Alkaline Phosphatase 348 U/L (38-126); Anion Gap 8 mmol/L; Blood Urea Nitrogen 23 mg/dL (7-17); Calcium 8.4 mg/dL (8.4-10.2); Carbon Dioxide 34 mmol/L (22-30); Chloride 84 mmol/L (98-107); Glucose 98 mg/dL (74-99); Non-African American GFR(CKD) 80 (>60 ml/min/1.73 sqM); Potassium 3.5 mmol/L (3.5-5.1); Sodium 126 mmol/L (137-145); Total Bilirubin 0.5 mg/dL (0.2-1.3); Total Protein 6.1 g/dL (6.3-8.2)
[2022-06-02 06:49] LABS: Glucose,Whole Blood 108 mg/dL (70-110)
[2022-06-02] MEDS: INSULIN ASPART (NovoLOG) 100 UNIT/ML VIAL SQ SCH ×4 (07:03→20:32)
[2022-06-02] MEDS: PANTOPRAZOLE 40 MG TABLET PO SCH ×2 (07:08→16:33)
[2022-06-02] MEDS: ASCORBIC ACID 500 MG TAB PO SCH ×2 (07:08→16:33)
--- NOTE | 2022-06-02 07:34 | XR ---
EXAMINATION TYPE: XR chest 1V portable DATE OF EXAM: 06/02/2022 HISTORY: Shortness of breath. COMPARISON: 06/01/2022 TECHNIQUE: Single view of the chest is submitted. FINDINGS: Demonstrated are scattered senescent parenchymal change. Continued cardiomegaly with pulmonary venous congestion and small effusions. No evidence for pneumoth orax. Hilar and mediastinal structures are within normal limits. Degenerative changes are seen of the dorsal spine. IMPRESSION: 1. Stable appearance of the chest.
[2022-06-02] MEDS: IPRATROPIUM-ALBUTEROL 3 ML NEB INHALATION SCH ×4 (07:51→20:08)
[2022-06-02] MEDS: SYMBICORT 160-4.5 MCG INHALER INHALATION SCH ×2 (07:51→20:08)
--- NOTE | 2022-06-02 08:21 | P.PN ---
Subjective Progress Note Date: 06/02/22 Principal diagnosis: Valvular heart disease The patient is a pleasant 61-year-old female patient who is known to have valvular heart disease who underwent mitral valve replacement and tricuspid valve repair. She's also does have pulmonary hypertension likely to be the unit show group to pulmonary hypertension secondary to valvular heart disease and left side disease. May [id number] She was evaluated this morning. She remains a stable from the cardiovascular standpoint of view. She is on dual antiplatelet therapy which is an intermediate intensity statin. Chest x-ray was reviewed this morning and seems to be stable. From a cardiovascular standpoint of view, we'll continue the current medical regimen and continue monitor the kidney function and electrolytes and follow-up with the patient May [id number] The patient was seen and evaluated this morning. She seems stable from a cardiovascular standpoint of view. She continues to be in sinus rhythm with a long first-degree AV block. From the cardiovascular standpoint of view, we'll continue the current medical regimen and taper down the dose of amiodarone and continue dual antiplatelet therapy along with a statin and follow-up with the patient. Continue monitor the kidney function as well as electrolytes. May [id number] The patient was seen and evaluated this morning. The patient seems to be stable from a cardiovascular standpoint of view. She remains in sinus rhythm with first-degree AV block. Overall she is doing well. At this point we'll continue the current medical regimen including the current medical regimen and follow-up with the patient. The patient potentially can be transferred out of the intensive care unit 05/30/2022 The patient was seen and evaluated this morning if she remains stable from a perivascular standpoint overview. Her main issues has been is abdominal bloating. That has been worked up by the primary care team. Otherwise she seems to be stable cardiac kumar pH she continues to be in sinus rhythm with first-degree AV block. From the cardiac standpoint of view, the patient can be transferred out of the intensive care unit. 05/31/2022 The patient was seen and evaluated this morning. The abdominal discomfort/bloating has improved after she was started on Lasix IV. Also the lower extremities edema has improved somewhat. She remains stable hemodynamically. She has been maintaining sinus rhythm was first-degree AV block. At this point we'll continue the current medical regimen including the current dose of Lasix IV with monitoring the kidney function and electrolytes and possible discharge in the next 24-48 hours June [id number] The patient was seen and evaluated this morning if she remains asymptomatic. She remains hemodynamically stable. She is to have bilateral lower extremity edema but the blocking symptoms have improved. No symptoms of chest pain or chest discomfort. She remains in sinus rhythm. From the cardiovascular standpoint of view, the patient potentially can be discharged in the next 24 hours. Objective - Vital Signs Vital signs: Vital Signs Temp 97.7 F 06/02/22 04:00 Pulse 82 06/02/22 08:04 Resp 18 06/02/22 04:00 BP 108/71 06/02/22 04:00 Pulse Ox 95 06/01/22 18:00 FiO2 50 05/22/22 16:00 Intake & Output 06/01/22 06/02/22 06/02/22 18:59 06:59 18:59 Intake Total 250 1250 Output Total 1350 1820 Balance -1100 -570 Weight 87.5 kg Intake: IV 250 50 Magnesium Sulfate-D5w Pmx 200 1 gm In Dextrose/Water 1 100ml.bag @ 100 mls/hr IVPB Q1H [facility] Rx#: [id number] cefTRIAXone 2 gm In 50 50 Sodium Chloride 0.9% 50 ml @ 100 mls/hr IVPB Q24H [facility] Rx#:[id number] Oral 1200 Output: Urine 1350 1820 Other: Voiding Method Toilet Toilet # Voids 1 # Bowel Movements 1 ABP, PAP, CO, CI - Last Documented Arterial Blood Pressure 104/53 Pulmonary Artery Pressure 50/20 Cardiac Output 3.9 Cardiac Index 2.1 - Constitutional General appearance: Present: no acute distress - Respiratory Respiratory: bilateral: diminished - Cardiovascular Rhythm: regular - Labs CBC & Chem 7: 06/02/22 04:38 06/02/22 04:38 Labs: Abnormal Lab Results - Last 24 Hours (Table) 06/01/22 06/01/22 06/01/22 Range/Units 05:38 05:38 11:48 WBC (3.8-10.6) k/uL RBC (3.80-5.40) m/uL Hgb (11.4-16.0) gm/dL Hct (34.0-46.0) % Neutrophils # (1.3-7.7) k/uL Neutrophils # (Manual) 12.70 H (1.3-7.7) k/uL Monocytes # (Manual) 1.41 H (0-1.0) k/uL Metamyelocytes # (Man) 0.16 H (0) k/uL Myelocytes # (Manual) 0.16 H (0) k/uL Sodium (137-145) mmol/L Chloride (98-107) mmol/L Carbon Dioxide (22-30) mmol/L BUN (7-17) mg/dL POC Glucose (mg/dL) 129 H (70-110) mg/dL AST (14-36) U/L ALT (4-34) U/L Alkaline Phosphatase (38-126) U/L Total Protein (6.3-8.2) g/dL Procalcitonin 0.14 H (0.02-0.09) ng/mL 06/01/22 06/01/22 06/02/22 Range/Units 16:47 20:46 04:38 WBC 16.1 H (3.8-10.6) k/uL RBC 3.03 L (3.80-5.40) m/uL Hgb 9.6 L (11.4-16.0) gm/dL Hct 28.6 L (34.0-46.0) % Neutrophils # 13.3 H (1.3-7.7) k/uL Neutrophils # (Manual) (1.3-7.7) k/uL Monocytes # (Manual) (0-1.0) k/uL Metamyelocytes # (Man) (0) k/uL Myelocytes # (Manual) (0) k/uL Sodium (137-145) mmol/L Chloride (98-107) mmol/L Carbon Dioxide (22-30) mmol/L BUN (7-17) mg/dL POC Glucose (mg/dL) 169 H 125 H (70-110) mg/dL AST (14-36) U/L ALT (4-34) U/L Alkaline Phosphatase (38-126) U/L Total Protein (6.3-8.2) g/dL Procalcitonin (0.02-0.09) ng/mL 06/02/22 Range/Units 04:38 WBC (3.8-10.6) k/uL RBC (3.80-5.40) m/uL Hgb (11.4-16.0) gm/dL Hct (34.0-46.0) % Neutrophils # (1.3-7.7) k/uL Neutrophils # (Manual) (1.3-7.7) k/uL Monocytes # (Manual) (0-1.0) k/uL Metamyelocytes # (Man) (0) k/uL Myelocytes # (Manual) (0) k/uL Sodium 126 L (137-145) mmol/L Chloride 84 L (98-107) mmol/L Carbon Dioxide 34 H (22-30) mmol/L BUN 23 H (7-17) mg/dL POC Glucose (mg/dL) (70-110) mg/dL AST 97 H (14-36) U/L ALT 73 H (4-34) U/L Alkaline Phosphatase 348 H (38-126) U/L Total Protein 6.1 L (6.3-8.2) g/dL Procalcitonin (0.02-0.09) ng/mL Assessment and Plan Assessment: Assessment Valvular heart disease Status post mitral valve replacement and tricuspid valve repair Multiple comorbid conditions Plan Continue the current medical regimen Continue dual antiplatelet therapy Continue Lasix IV for additional 24-hour Continue monitoring the kidney function and electrolytes Continue intermediate intensity statin The patient can be discharged home in the next 24 hours
[2022-06-02] MEDS: FUROSEMIDE 10 MG/ML 4 ML VIAL IV SCH (08:34)
[2022-06-02] MEDS: METOPROLOL TARTRATE 25 MG TAB PO SCH ×2 (08:34→20:38)
[2022-06-02] MEDS: LACTULOSE 20 GM/30 ML CUP PO SCH (08:34)
[2022-06-02] MEDS: CITALOPRAM HYDROBROMIDE 20 MG TAB PO SCH ×2 (08:34→20:37)
[2022-06-02] MEDS: metroNIDAZOLE 500 MG TAB PO SCH (08:34)
[2022-06-02] MEDS: ASPIRIN 325 MG TAB PO SCH (08:34)
[2022-06-02] MEDS: AMIODARONE 200 MG TAB PO SCH (08:34)
[2022-06-02] MEDS: SIMETHICONE 80 MG CHEWABLE PO SCH ×4 (08:35→20:38)
[2022-06-02] MEDS: CALCIUM CARBONATE 500 MG CHEWABLE PO PRN (08:35)
[2022-06-02] MEDS: POTASSIUM CHLORIDE ER 20 MEQ TAB.ER PO SCH (08:35)
[2022-06-02 09:57] LABS: Appearance,Urine Clear (Clear); Bilirubin,Urine Negative (Negative); Blood,Urine Negative (Negative); Color,Urine Colorless; Glucose,Urine (UA) Negative (Negative); Ketones,Urine Negative (Negative); Leukocyte Esterase,Urine Negative (Negative); Nitrite,Urine Negative (Negative); PH, Urine 7.5 (5.0-8.0); Protein,Urine Negative (Negative); Specific Gravity,Urine 1.004 (1.001-1.035); Urobilinogen,Urine <2.0 mg/dL (<2.0)
--- NOTE | 2022-06-02 10:08 | P.PN ---
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 Past medical history significant for pulmonary hypertension with a recent RVSP 86 mmHg, mild nonobstructive coronary artery disease by heart catheterization to her circumflex coronary artery, hypertension, chronic tobacco abuse although has not smoked in 3 weeks, COPD with a previous pulmonary function test showing an FEV1 of 42% of predicted value with a base volume of 1.04 L, history of SVT, remote history of pneumonia, history of depression and family history of coronary artery disease. POD #11 chordal preserving mitral valve replacement using a 27 mm Mosaic porcine bioprosthesis, tricuspid valve repair with ring annuloplasty using a 28 mm MC3 ring, exclusion of the left atrial appendage using a 35 mm AtriClip, intraopera tive transesophageal echocardiogram and epi-aortic scanning Postoperative acute blood loss anemia, expected given hemodilution and cardiopulmonary bypass pump. The patient was seen and examined in follow-up today 06/02/2022 at her bedside in the intensive care unit. Overall the patient reports she feels improved today, reports that her belly feels less bloated today although is still complaining of some constipation and says she hasn't had a good bowel movement in a couple of days. Denies any complaints of pain or shortness of breath at this time. She reports she has been up ambulating in the intensive care unit hallway with standby assistance with nursing staff and tolerating well. Oxygen saturation are 97% on room air and she is achieving 1250 mL on her incentive spirometry. Bedside telemetry showing normal sinus rhythm heart rate 78 BPM. She remained hemodynamically stable as currently on no inotropic pressure support. She was started on Flagyl yesterday by infectious disease for WBC count trending up yesterday. Laboratory results this morning show a double [place] count of 16.1, hemoglobin 9.6, hematocrit 28.6, platelets 294, sodium 126, potassium 3.5, chloride 84, CO2 34, BUN 23, creatinine 0.81, glucose 98, and calcium 8.4. Chest x-ray was reviewed. Urine output in the last 8 hours was 1120 mL. She remains on Lasix 40 mg IV twice a day. She also remains on R ocephin 2 g IV piggyback every 24 hours managed by infectious disease. Objective - Vital Signs Vital signs: Vital Signs Temp 97.7 F 06/02/22 04:00 Pulse 82 06/02/22 08:04 Resp 18 06/02/22 04:00 BP 108/71 06/02/22 04:00 Pulse Ox 95 06/01/22 18:00 FiO2 50 05/22/22 16:00 Intake & Output 06/01/22 06/02/22 06/02/22 18:59 06:59 18:59 Intake Total 250 1250 Output Total 1350 1820 Balance -1100 -570 Weight 87.5 kg Intake: IV 250 50 Magnesium Sulfate-D5w Pmx 200 1 gm In Dextrose/Water 1 100ml.bag @ 100 mls/hr IVPB Q1H [facility] Rx#: [id number] cefTRIAXone 2 gm In 50 50 Sodium Chloride 0.9% 50 ml @ 100 mls/hr IVPB Q24H [facility] Rx#:[id number] Oral 1200 Output: Urine 1350 1820 Other: Voiding Method Toilet Toilet # Voids 1 # Bowel Movements 1 ABP, PAP, CO, CI - Last Documented Arterial Blood Pressure 104/53 Pulmonary Artery Pressure 50/20 Cardiac Output 3.9 Cardiac Index 2.1 - Exam CONSTITUTIONAL: Sitting up to the bedside chair in the intensive care unit, appears comfortable, cooperative, no apparent acute distress. HEENT: Neck is supple, no JVD, no lymphadenopathy. RESPIRATORY: Lungs sounds essentially clear throughout, diminished to her bilateral bases. Respirations are symmetrical and nonlabored. Currently on room air oxygen saturations 97%. Able to achieve 1250 mL on her incentive spirom etry. Strong cough. CARDIOVASCULAR: Regular rhythm and rate. S1 and S2 present, negative for S3, gallop or murmur. Sternum is stable. Palpable peripheral pulses bilaterally, +1 edema to her bilateral lower extremities. No calf pain or tenderness noted. Heart hugger in place with patient demonstrating appropriate use. Knee-high MARIAM hose and sequential compression devices in place to her bilateral lower extremities. GASTROINTESTINAL: Abdomen soft, nontender, distended. Active bowel sounds present 4 quadrants. Tolerating diet. Passing flatus. No guarding or rigidity. Bowel movement yesterday 06/01/2022. GENITOURINARY: Continues to void. 1120 mL output last 8 hours. INTEGUMENTARY: Skin is warm and dry with no evidence of clubbing or cyanosis. Midline sternal incision clean dry and well approximated, covered with dry intact dressing. NEUROLOGIC: Cranial nerves II through XII intact. No focal deficits. MUSKULOSKELETAL: Able to move all extremities, strength equal bilaterally. PSYCHIATRIC: Alert and oriented to person place and time, appropriate affect, intact judgment and insight. - Allied health notes Allied health notes reviewed: nursing - Labs CBC & Chem 7: 06/02/22 04:38 06/02/22 04:38 Labs: Abnormal Lab Results - Last 24 Hours (Table) 06/01/22 06/01/22 06/01/22 Range/Units 05:38 05:38 11:48 WBC (3.8-10.6) k/uL RBC (3.80-5.40) m/uL Hgb (11.4-16.0) gm/dL Hct (34.0-46.0) % Neutrophils # (1.3-7.7) k/uL Neutrophils # (Manual) 12.70 H (1.3-7.7) k/uL Monocytes # (Manual) 1.41 H (0-1.0) k/uL Metamyelocytes # (Man) 0.16 H (0) k/uL Myelocytes # (Manual) 0.16 H (0) k/uL Sodium (137-145) mmol/L Chloride (98-107) mmol/L Carbon Dioxide (22-30) mmol/L BUN (7-17) mg/dL POC Glucose (mg/dL) 129 H (70-110) mg/dL AST (14-36) U/L ALT (4-34) U/L Alkaline Phosphatase (38-126) U/L Total Protein (6.3-8.2) g/dL Procalcitonin 0.14 H (0.02-0.09) ng/mL 06/01/22 06/01/22 06/02/22 Range/Units 16:47 20:46 04:38 WBC 16.1 H (3.8-10.6) k/uL RBC 3.03 L (3.80-5.40) m/uL Hgb 9.6 L (11.4-16.0) gm/dL Hct 28.6 L (34.0-46.0) % Neutrophils # 13.3 H (1.3-7.7) k/uL Neutrophils # (Manual) (1.3-7.7) k/uL Monocytes # (Manual) (0-1.0) k/uL Metamyelocytes # (Man) (0) k/uL Myelocytes # (Manual) (0) k/uL Sodium (137-145) mmol/L Chloride (98-107) mmol/L Carbon Dioxide (22-30) mmol/L BUN (7-17) mg/dL POC Glucose (mg/dL) 169 H 125 H (70-110) mg/dL AST (14-36) U/L ALT (4-34) U/L Alkaline Phosphatase (38-126) U/L Total Protein (6.3-8.2) g/dL Procalcitonin (0.02-0.09) ng/mL 06/02/22 Range/Units 04:38 WBC (3.8-10.6) k/uL RBC (3.80-5.40) m/uL Hgb (11.4-16.0) gm/dL Hct (34.0-46.0) % Neutrophils # (1.3-7.7) k/uL Neutrophils # (Manual) (1.3-7.7) k/uL Monocytes # (Manual) (0-1.0) k/uL Metamyelocytes # (Man) (0) k/uL Myelocytes # (Manual) (0) k/uL Sodium 126 L (137-145) mmol/L Chloride 84 L (98-107) mmol/L Carbon Dioxide 34 H (22-30) mmol/L BUN 23 H (7-17) mg/dL POC Glucose (mg/dL) (70-110) mg/dL AST 97 H (14-36) U/L ALT 73 H (4-34) U/L Alkaline Phosphatase 348 H (38-126) U/L Total Protein 6.1 L (6.3-8.2) g/dL Procalcitonin (0.02-0.09) ng/mL - Imaging and Cardiology Chest x-ray: report reviewed, image reviewed Assessment and Plan Assessment: 1. 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 Preserved left ventricular systolic function, moderate right ventricular dysfunction, EF 55-60% 3. Moderate tricuspid valve regurgitation, status post tricuspid valve repair 4. Acute on chronic diastolic heart failure 5. Transaminitis 6. History of mild nonobstructive coronary artery disease 7. Hypertension 8. Hyperlipidemia, treated, cholesterol 196, LDL 99, triglycerides 254 9. Abdominal distention, likely secondary to constipation 10. Previous tobacco dependence with recent cessation 11. Severe COPD, preoperative FEV1 42% of predicted 12. History of supraventricular tachycardia 13. Depression 14. Remote history of pneumonia 15. Family history of coronary artery disease 16. Postoperative acute blood loss anemia, expected 17. Leukocytosis, unspecified source Plan: 1. Continue to maximize medical therapy with aspirin, Plavix and beta vince. Statin was placed on hold by cardiology due to her liver enzymes trending up, amiodarone was decreased to 200 mg by mouth daily. Continue to monitor AST and ALT, once normalized her statin will be restarted. AST 97 this morning and ALT 73. 3. Encourage incentive spirometry use 10 times every hour while awake. Bronchodilators per pulmonology/critical care management. 4. Increase activity as tolerated. Ambulate in the intensive care unit hallway 3 times a day and when necessary. PT/OT/cardiac rehab following. Shower daily. 5. Will monitor daily labs and chest x-rays. Electrolyte replacement per protocol. Continue IV Lasix 40 mg twice a day. 6. GI/DVT prophylaxis. Continue protonix BID, tums PRN. 7. Pain control with current medication regimen. Avoid narcotics 8. Insulin management per internal medicine service. Preoperative hemoglobin A1c 6.4% 9. Strict accurate intake and output. Daily weights 10. Transfer orders for 3 S. cardiac stepdown unit when bed available. 11. Discharge planning in progress. Anticipate discharge to home with home care in 24 hours. 12. Flagyl and Rocephin 2 g IV piggyback every 24 hours managed by infectious disease. 13. Constipation management per primary care and Gen. surgery recommendations. 14. More recommendations to follow based on patient's clinical course. Time with Patient: Greater than 30
--- NOTE | 2022-06-02 10:37 | P.PN ---
Progress Note - Text Progress Note Date: 06/02/22 Patient [place] [facility] is stable. Per the nursing notes she has had 1 bowel movement. Patient denies a significant abdominal pain. She is tolerating diet. Severe constipation. Patient continue her bowel regime. Apparently she may be discharged later today per her nurse.
--- NOTE | 2022-06-02 10:38 | P.PN ---
Progress Note - Text Progress Note Date: 06/02/22 The patient's had some melanotic stool. His he will was 9.6. It was previously 10.3. On exam vital signs appear stable. Abdomen soft. 2. Patient may need EGD. Patient will continue local wound care for his decubitus ulcer.
--- NOTE | 2022-06-02 10:46 | P.PN ---
Subjective Progress Note Date: 06/02/22 Principal diagnosis: ICU management. Reevaluated today on 05/23/22, patient is now postoperative day #1chordal preserving mitral valve replacement using a 27 mm Mosaic porcine bioprosthesis, tricuspid valve repair with ring annuloplasty using a 28 mm MC3 ring, exclusion of the left atrial appendage using a 35 mm AtriClip, intraoperative transesophageal echocardiogram and epi-aortic scanning. Patient was extubated last night around 7 PM, and she tolerated the extubation well. Patient remains in the ICU, denies any shortness of breath, she is in sinus rhythm, hemodynamically stable however she is still on low dose of Primacor, and amiodarone. No major issues over the last 12 hours. Patient is resting in a bedside chair, he is on few liters nasal cannula, chest x-ray showed minimal postoperative changes and atelectasis. Overall the patient is doing great. CBC is relatively normal hemoglobin is 9.4. Basic metabolic profile is normal. Cardiac output is 5.7, cardiac index is 3.1. CVP is 13. Reevaluated today on 05/24/22, patient remains in the ICU, she is on 3 L nasal cannula, she remains on Primacor at 0.1 mcg/kg/m, she is also on insulin 20 units per hour, IV fluid 0.9 normal saline at 20 mL per hour. Continues to have [place]-Celso catheter in place, her PA pressures are 50/23 and CVP is 11. Continues to have right-sided chest tube and mediastinal chest tube. WBC count is 15.6 hemoglobin is 8. Basic metabolic profile is normal renal profile is normal. Chest x-ray this a.m. showed minimal left lower lobe atelectasis, and her [place]-Cel[place] catheter remains present Reevaluated today on 06/21/22, patient remains in the ICU, patient is postoperative day #3,chordal preserving mitral valve replacement using a 27 mm Mosaic porcine bioprosthesis, tricuspid valve repair with ring annuloplasty using a 28 mm MC3 ring, exclusion of the left atrial appendage using a 35 mm AtriClip, intraoperative transesophageal echocardiogram and epi-aortic scanning. Cardiac output remains marginal and the patient remains on Primacor, blood pressure is marginal, urine output is marginal and she is receiving Bumex. Pulmonary-kumar she is on 2 L nasal cannula, chest x-ray showed mostly by basilar atelectasis, no evidence of congestive heart failure. WBC count of 10 hemoglobin is 7, electrolytes are normal renal profile is normal. Cardiac output/cardiac index 4.1/2.2. CVP is 15. He a pressure 52/20 Progress note dated 05/27/2022. 61-year-old female postop day #5, post mitral valve replacement, tricuspid valve repair, and exclusion of left atrial appendage. Currently, the patient's on 2 L of oxygen. She's getting dopamine at 1 mcg/kg/m. She is getting saline at KVO. White count 8.7, hemoglobin 9.8, hematocrit 28.5, and platelet count 269,000. Sodium 132, with a normal potassium, chloride, CO2, anion gap, BUN, and creatinine. Chest x-ray shows postoperative changes, with small bilateral effusions. Progress note dated 05/28/2022. 61-year-old female postop day #6, status post mitral valve replacement, tricuspid valve repair, and exclusion of left atrial appendage. Currently, the patient's on room air. She's not receiving any IV fluids. She sitting in a chair of next to her bed. Yesterday, she was on 2 L and on a small dose of dopamine. She is on neither today. White count 11, hemoglobin 10.5, hematocrit 31.8, sodium 132, potassium 4.1, chlorides 100, CO2 23, BUN 18 and creatinine 0.65. Platelet count was normal at 201,000. Chest x-ray shows small effusions, and basilar atelectasis. Progress note dated 05/29/2022. 61-year-old female, postop day #7, status post mitral valve replacement, tricuspid valve repair, and exclusion of left atrial appendage. The patient is currently on room air. She's not receiving any IV fluids. He stable. She sitting up in a chair next to her bed. White count 13.5, hemoglobin 10.4, and p latelet count was normal. Sodium 132, potassium 4.1, chlorides 97, CO2 27, BUN 19, creatinine 0.68. Chest x-ray shows similar findings from yesterday, with very tiny bilateral effusions. Progress note dated 05/30/2022. 61-year-old female, postop day #8, status post mitral valve replacement, tric uspid valve repair, and exclusion of left atrial appendage. She is on room air. Not receiving any IV fluids. She's complaining this morning of abdominal distention. White count 13.3, hemoglobin 10.2, hematocrit 30.3, platelet count normal. Sodium 131, potassium 3.9, chlorides 95, CO2 28, BUN 20, creatinine 0.7. Chest x-ray shows small bilateral effusions, with some mild basilar atelectasis. Progress note dated 05/31/2022. 61-year-old female seen again in room 266. She is postop day #9, status post mitral valve replacement, tricuspid valve repair, and exclusion of left atrial appendage. She's on room air. She's not on any IV fluids. Clinically, she is very stable. Labs include a white count of 13, hemoglobin 10, hematocrit 29.5, and platelet count of 287,000. Sodium 1:30, potassium 3.5, chlorides 91, CO2 31, BUN 19, and creatinine 0.75. Chest x-ray shows cardiomegaly, and small bilateral effusions. Progress note dated 06/01/2022. 61-year-old female who is postop day #10, status post mitral valve replacement and tricuspid valve repair. She seen again in room 266. She is on room air. No IV fluids. She is receiving replacement magnesium. The patient is still having significant abdominal distention. White count 15.7, hemoglobin 10.3, hematocrit 30.9, and platelet count 351,000. Sodium 129, potassium 4.3, chloride 85, CO2 38, BUN 22, creatinine 0.74. Pro-calcitonin level is 0.14. Chest x-ray shows changes of atelectasis. Progress note dated 06/02/2022. 61-year-old female postop day #11, status post mitral valve replacement and tricuspid valve repair. She is again seen in room 266. She's on room air. She's not receiving any IV fluids. Her abdomen does feel better, and less distended. White count 16.1, hemoglobin 9.6, hematocrit 28.6, and platelet count 294,000. Sodium 126, potassium 3.5, chlorides 84, CO2 34, BUN 23, and creatinine 0.81. Chest x-ray today is stable, and unchanged from the previous chest x-ray. Objective - Vital Signs Vital signs: Vital Signs Temp 97.6 F 06/02/22 08:00 Pulse 82 06/02/22 08:04 Resp 18 06/02/22 08:00 BP 113/75 06/02/22 08:00 Pulse Ox 95 06/02/22 08:00 FiO2 50 05/22/22 16:00 Intake & Output 06/01/22 06/02/22 06/02/22 18:59 06:59 18:59 Intake Total 250 1250 200 Output Total 1350 1820 800 Balance -1100 -570 -600 Weight 87.5 kg Intake: IV 250 50 Magnesium Sulfate-D5w Pmx 200 1 gm In Dextrose/Water 1 100ml.bag @ 100 mls/hr IVPB Q1H [facility] Rx#: [id number] cefTRIAXone 2 gm In 50 50 Sodium Chloride 0.9% 50 ml @ 100 mls/hr IVPB Q24H [facility] Rx#:[id number] Oral 1200 200 Output: Urine 1350 1820 800 Other: Voiding Method Toilet Toilet Toilet # Voids 1 1 # Bowel Movements 1 ABP, PAP, CO, CI - Last Documented Arterial Blood Pressure 104/53 Pulmonary Artery Pressure 50/20 Cardiac Output 3.9 Cardiac Index 2.1 - Exam No acute distress, oriented 3. Currently on room air. HEENT examination is grossly unremarkable. Neck supple. Full range of motion. No adenopathy thyromegaly or neck vein distention. Cardiovascular examination reveals regular rhythm rate. S1-S2 normal. No S3 or S4. No discernible murmur noted. Heart rate 82 bpm. Lungs reveal scattered bilateral rhonchi. No wheezes or crackles. Breath sounds equal bilaterally. Room air saturation 95 %. Abdomen distended, and mildly tympanitic. Bowel sounds are noted. No masses. Minimal tenderness. Extremities are intact. No cyanosis clubbing or edema. Skin is without rash or lesion. Neurologic examination is brief but nonfocal. - Labs CBC & Chem 7: 06/02/22 04:38 06/02/22 04:38 Labs: Abnormal Lab Results - Last 24 Hours (Table) 06/01/22 06/01/22 06/01/22 Range/Units 05:38 11:48 16:47 WBC (3.8-10.6) k/uL RBC (3.80-5.40) m/uL Hgb (11.4-16.0) gm/dL Hct (34.0-46.0) % Neutrophils # (1.3-7.7) k/uL Neutrophils # (Manual) 12.70 H (1.3-7.7) k/uL Monocytes # (Manual) 1.41 H (0-1.0) k/uL Metamyelocytes # (Man) 0.16 H (0) k/uL Myelocytes # (Manual) 0.16 H (0) k/uL Sodium (137-145) mmol/L Chloride (98-107) mmol/L Carbon Dioxide (22-30) mmol/L BUN (7-17) mg/dL POC Glucose (mg/dL) 129 H 169 H (70-110) mg/dL AST (14-36) U/L ALT (4-34) U/L Alkaline Phosphatase (38-126) U/L Total Protein (6.3-8.2) g/dL 06/01/22 06/02/22 06/02/22 Range/Units 20:46 04:38 04:38 WBC 16.1 H (3.8-10.6) k/uL RBC 3.03 L (3.80-5.40) m/uL Hgb 9.6 L (11.4-16.0) gm/dL Hct 28.6 L (34.0-46.0) % Neutrophils # 13.3 H (1.3-7.7) k/uL Neutrophils # (Manual) (1.3-7.7) k/uL Monocytes # (Manual) (0-1.0) k/uL Metamyelocytes # (Man) (0) k/uL Myelocytes # (Manual) (0) k/uL Sodium 126 L (137-145) mmol/L Chloride 84 L (98-107) mmol/L Carbon Dioxide 34 H (22-30) mmol/L BUN 23 H (7-17) mg/dL POC Glucose (mg/dL) 125 H (70-110) mg/dL AST 97 H (14-36) U/L ALT 73 H (4-34) U/L Alkaline Phosphatase 348 H (38-126) U/L Total Protein 6.1 L (6.3-8.2) g/dL Assessment and Plan Assessment: Postop day #11, status post mitral valve replacement, tricuspid valve repair, and exclusion of left atrial appendage. Routine postoperative ventilator management. Severe rheumatic mitral valve stenosis and severe pulmonary hypertension, with moderate mitral valve regurgitation. Chronic diastolic CHF. History of nonocclusive CAD. Hypertension. 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 History of supraventricular tachycardia. Postoperative blood loss. Postoperative atelectasis. Plan: Plan dated 05/27/2022. The patient appears to be doing relatively well. She is on 2 L. She's getting dopamine at 1 mcg/kg/m. She is resting comfortably. X-ray, labs, and medications are all reviewed. Follow the patient make recommendations along the way. We do encourage continued use of the incentive spirometer. Plan dated 05/28/2022. Today is postop day #6. The patient's currently on room air. Saturations are 9 8%. The patient's dopamine has been discontinued. Labs, x-rays, and medications are all reviewed. Clinically, the patient is well. She sitting up in a chair next to her bed. She denies any significant breathing issues. We encourage her to continue using the incentive spirometer, and also encourage her to deep breathe, cough, and clear secretions. Plan dated 05/29/2022. Today's postop day #7. The patient's on room air. Saturations are 97-98%. She continues on the incentive spirometer. Labs, x-rays, and medications are reviewed clinically, the patient's very stable. We will continue to follow make recommendations along the way. The patient is also a overflow patient over to 3 S. floor. Plan dated 05/30/2022. Today's postop day #8. Overnight, the patient did develop some abdominal distention. Her abdomen is firm. X-ray shows some basilar atelectasis and small effusions. Labs, x-rays, and medications are reviewed. The patient's on room air. She is not receiving any IV fluids. We will continue to follow make recommendations along the way. Plan dated 05/31/2022. Today is postop day #9. The patient's on room air. No IV fluids. The abdominal symptoms that she was having, heartbeat improved. No additional recommendations are made. Labs, x-rays, and medications are reviewed. The patient could be transferred out to the cardiology floor. We will continue to follow and make a recommendation where appropriate. Plan dated 06/01/2022. Today's postop day #10. The patient's on room air, and no IV fluids. Her abdominal distention is a bit better. Labs, x-rays and medications are reviewed. We will continue to follow make recommendations along the way. P rognosis is guarded. We will continue to follow. Plan dated 06/02/2022. Today's postop day #11. The patient's on room air. The patient is not receiving any IV fluids. Labs, x-rays, and medications are all reviewed. The patient's abdomen is a bit better. We will continue to follow make recomm endations along the way. Prognosis is guarded. Time with Patient: Less than 30
--- NOTE | 2022-06-02 10:52 | P.PN ---
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 The patient was recently admitted to the hospital from 04/25-04/27 for similar complaints, at which time she was diagnosed with the above mitral valve disease. The patient was advised to follow-up as an outpatient for an elective mitral valve repair/replacement with cardiothoracic surgery. Upon arrival at the emergency room vital signs were within normal limits. Chest CTA revealed no evidence of PE with a right pleural effusion. EKG revealed sinus tachycardia with PVCs at 102 bpm with no notable ST/T-wave changes noted as reviewed by me. Laboratory evaluation was remarkable for troponin of less than 0.012, proBNP 3870, AST 132, ALT 158, and alk phos 232 with a total bilirubin 1.4. She was admitted for acute exacerbation of right- sided heart failure in the setting of severe mitral valve disease. She was started on IV diuresis and cardiology was consulted. Cardiovascular surgery was also consulted. Patient underwent open heart surgery with mitral valve re placement, tricuspid valve repair, exclusion of the left atrial appendage with a 35mm atrial clip on 05/22. She was extubated on 05/22. 06/02 Overall she feels improved today, reports that her belly feels less bloated today although is still complaining of some constipation and says she hasn't had a good bowel movement in a couple of days. No fevers or chills. No cp or sob. Objective - Vital Signs Vital signs: Vital Signs Temp 97.6 F 06/02/22 08:00 Pulse 82 06/02/22 08:04 Resp 18 06/02/22 08:00 BP 113/75 06/02/22 08:00 Pulse Ox 95 06/02/22 08:00 FiO2 50 05/22/22 16:00 Intake & Output 06/01/22 06/02/22 06/02/22 18:59 06:59 18:59 Intake Total 250 1250 200 Output Total 1350 1820 800 Balance -1100 -570 -600 Weight 87.5 kg Intake: IV 250 50 Magnesium Sulfate-D5w Pmx 200 1 gm In Dextrose/Water 1 100ml.bag @ 100 mls/hr IVPB Q1H [facility] Rx#: [id number] cefTRIAXone 2 gm In 50 50 Sodium Chloride 0.9% 50 ml @ 100 mls/hr IVPB Q24H [facility] Rx#:[id number] Oral 1200 200 Output: Urine 1350 1820 800 Other: Voiding Method Toilet Toilet Toilet # Voids 1 1 # Bowel Movements 1 ABP, PAP, CO, CI - Last Documented Arterial Blood Pressure 104/53 Pulmonary Artery Pressure 50/20 Cardiac Output 3.9 Cardiac Index 2.1 - Exam General: non toxic, no distress, appears at stated age, obese Derm: no unusual rashes/lesions, warm Head: atraumatic, normocephalic, symmetric Eyes: EOMI, no lid lag, anicteric sclera, pupils equal round reactive to light ENT: Nose and ears atraumatic Neck: No cervical lymphadenopathy, trachea midline, supple Mouth: no lip lesion, mucus membranes moist Cardiovascular: S1S2 reg, systolic murmur appreciated, positive dorsalis pedis pulse bilateral, 1+ bilateral lower extremity pitting edema Lungs: Bibasilar rales appreciated without wheezing, no accessory muscle use Abdominal: Distended with minimal tenderness, no guarding Ext: muscle strength 5 out of 5 in all 4 extremities grossly, no gross muscle atrophy, no contractures, Neuro: CN II-XI grossly intact, no gross focal neuro deficits Psych: Alert, oriented, appropriate affect - Labs CBC & Chem 7: 06/02/22 04:38 06/02/22 04:38 Labs: Abnormal Lab Results - Last 24 Hours (Table) 06/01/22 06/01/22 06/01/22 Range/Units 05:38 11:48 16:47 WBC (3.8-10.6) k/uL RBC (3.80-5.40) m/uL Hgb (11.4-16.0) gm/dL Hct (34.0-46.0) % Neutrophils # (1.3-7.7) k/uL Neutrophils # (Manual) 12.70 H (1.3-7.7) k/uL Monocytes # (Manual) 1.41 H (0-1.0) k/uL Metamyelocytes # (Man) 0.16 H (0) k/uL Myelocytes # (Manual) 0.16 H (0) k/uL Sodium (137-145) mmol/L Chloride (98-107) mmol/L Carbon Dioxide (22-30) mmol/L BUN (7-17) mg/dL POC Glucose (mg/dL) 129 H 169 H (70-110) mg/dL AST (14-36) U/L ALT (4-34) U/L Alkaline Phosphatase (38-126) U/L Total Protein (6.3-8.2) g/dL 06/01/22 06/02/22 06/02/22 Range/Units 20:46 04:38 04:38 WBC 16.1 H (3.8-10.6) k/uL RBC 3.03 L (3.80-5.40) m/uL Hgb 9.6 L (11.4-16.0) gm/dL Hct 28.6 L (34.0-46.0) % Neutrophils # 13.3 H (1.3-7.7) k/uL Neutrophils # (Manual) (1.3-7.7) k/uL Monocytes # (Manual) (0-1.0) k/uL Metamyelocytes # (Man) (0) k/uL Myelocytes # (Manual) (0) k/uL Sodium 126 L (137-145) mmol/L Chloride 84 L (98-107) mmol/L Carbon Dioxide 34 H (22-30) mmol/L BUN 23 H (7-17) mg/dL POC Glucose (mg/dL) 125 H (70-110) mg/dL AST 97 H (14-36) U/L ALT 73 H (4-34) U/L Alkaline Phosphatase 348 H (38-126) U/L Total Protein 6.1 L (6.3-8.2) g/dL Assessment and Plan Plan: #Abdominal bloating #Constipation -KUB nonspecific -Zofran and Reglan PRN for N/V -Simethicone -Continue with bowel regimen #Leukocytosis #UTI -Started on Rocephin (D4) -managed by ID #Acute blood loss anemia -Expected result of surgery -s/p 2 unit PRBC -Continue to monitor #Hyponatremia, probably hypervolemic -Worsening, d/w ct surgery [employer], will switch lasix 40 mg IV BID to oral 40mg once daily. -Daily BMP #Acute exacerbation of right-sided heart failure, cor pulmonale in the setting of severe mitral valve disease #Severe mitral regurgitation with moderate to severe stenosis #Severe pulmonary hypertension #Nonobstructive coronary artery disease #Hypertension -Cardiothoracic surgery on board -Status post mitral valve replacement, tricuspid valve repair, exclusion of the left atrial appendage with a 35mm atrial clip 05/22 -Aspirin, Plavix, statin, beta vince -On Amiodarone for AFib prophylaxis -Strict I's and O's, daily weights -Was diuresed with IV lasix postoperatively, will switch to oral today as Na worsening. #Transaminitis secondary to hepatic congestion -Improving with diuresis -Continue to monitor Resolved: Acute hypoxic respiratory failure, acute kidney injury, leukocytosis Can be cleared from the medicine point of view once Na stabilized
[2022-06-02] MEDS: polyethylene glycoL 3350 17 GM POWD.PACK PO SCH (12:05)
[2022-06-02 12:06] LABS: Glucose,Whole Blood 116 mg/dL (70-110)
--- NOTE | 2022-06-02 15:39 | P.PN ---
Subjective Progress Note Date: 06/02/22 Principal diagnosis: Leukocytosis Patient is a 61-year-old female with a past medical history taken for pulmonary hypertension mitral regurgitation as well as tricuspid regurgitation who was electively admitted to the hospital 2 weeks ago for mitral valve replacement as well as tricuspid valve repair that was successfully completed patient subsequently has been in the hospital recovering from her surgical procedure, patient did have a urinary symptoms concerning for UTI and elevated white count on today's evaluation that is 2021, the patient to be afebrile, the patient is breathing comfortably on room air, the patient denies any chest pain shortness of breathdid have occasional dry cough, the patient denies having any nausea no vomiting no abdominal pain or diarrhea with the nursing staff Objective - Vital Signs Vital signs: Vital Signs Temp 98.2 F 06/02/22 12:00 Pulse 88 06/02/22 12:00 Resp 14 06/02/22 12:00 BP 104/73 06/02/22 12:00 Pulse Ox 95 06/02/22 12:00 FiO2 50 05/22/22 16:00 Intake & Output 06/01/22 06/02/22 06/02/22 18:59 06:59 18:59 Intake Total 250 1250 200 Output Total 1350 1820 800 Balance -1100 -570 -600 Weight 87.5 kg Intake: IV 250 50 Magnesium Sulfate-D5w Pmx 200 1 gm In Dextrose/Water 1 100ml.bag @ 100 mls/hr IVPB Q1H [facility] Rx#: [id number] cefTRIAXone 2 gm In 50 50 Sodium Chloride 0.9% 50 ml @ 100 mls/hr IVPB Q24H [facility] Rx#:[id number] Oral 1200 200 Output: Urine 1350 1820 800 Other: Voiding Method Toilet Toilet Toilet # Voids 1 1 # Bowel Movements 1 ABP, PAP, CO, CI - Last Documented Arterial Blood Pressure 104/53 Pulmonary Artery Pressure 50/20 Cardiac Output 3.9 Cardiac Index 2.1 - Exam GENERAL DESCRIPTION: Middle-age female up in the chair in no distress RESPIRATORY SYSTEM: Unlabored breathing , decreased breath sounds at bases HEART: S1 S2 regular rate and rhythm , ABDOMEN: Soft , mild distention but no tenderness EXTREMITIES: No edema feet - Labs CBC & Chem 7: 06/02/22 04:38 06/02/22 04:38 Labs: Abnormal Lab Results - Last 24 Hours (Table) 06/01/22 06/01/22 06/02/22 Range/Units 16:47 20:46 04:38 WBC 16.1 H (3.8-10.6) k/uL RBC 3.03 L (3.80-5.40) m/uL Hgb 9.6 L (11.4-16.0) gm/dL Hct 28.6 L (34.0-46.0) % Neutrophils # 13.3 H (1.3-7.7) k/uL Sodium (137-145) mmol/L Chloride (98-107) mmol/L Carbon Dioxide (22-30) mmol/L BUN (7-17) mg/dL POC Glucose (mg/dL) 169 H 125 H (70-110) mg/dL AST (14-36) U/L ALT (4-34) U/L Alkaline Phosphatase (38-126) U/L Total Protein (6.3-8.2) g/dL Procalcitonin (0.02-0.09) ng/mL 06/02/22 06/02/22 06/02/22 Range/Units 04:38 04:38 12:03 WBC (3.8-10.6) k/uL RBC (3.80-5.40) m/uL Hgb (11.4-16.0) gm/dL Hct (34.0-46.0) % Neutrophils # (1.3-7.7) k/uL Sodium 126 L (137-145) mmol/L Chloride 84 L (98-107) mmol/L Carbon Dioxide 34 H (22-30) mmol/L BUN 23 H (7-17) mg/dL POC Glucose (mg/dL) 116 H (70-110) mg/dL AST 97 H (14-36) U/L ALT 73 H (4-34) U/L Alkaline Phosphatase 348 H (38-126) U/L Total Protein 6.1 L (6.3-8.2) g/dL Procalcitonin 0.15 H (0.02-0.09) ng/mL Assessment and Plan (1) Leukocytosis Current Visit: Yes Status: Acute Code(s): D72.829 - ELEVATED WHITE BLOOD CELL COUNT, UNSPECIFIED SNOMED Code(s): 698558580 Plan: 1patient with elevated white count possibly related to the UTI in this patient who do have a urinary symptoms and did have risk factors of Crespo catheter during this hospital stay will need to cover for the enteric gram-negative to be the likely pathogen. 2patient also have some abdominal distention CT abdominal pelvis has been suggestive of anasarca no acute abnormality ultrasound did not show any gallstones 3patient did have slight worsening of the white count , a repeat UA has been negative keeping in mind her exposure to antibiotics risk of fungal infection we cannot use Diflucan because the patient is on amiodarone, will start the patient on Eraxis and repeat CBC tomorrow Time with Patient: Less than 30
[2022-06-02] MEDS ORDERED: ANIDULAFUNGIN 200 MG in SODIUM CHLORIDE 0.9% 200 ML IVPB ONE (16:00)
[2022-06-02 16:36] LABS: Glucose,Whole Blood 149 mg/dL (70-110)
[2022-06-02 20:08] LABS: Glucose,Whole Blood 148 mg/dL (70-110)
[2022-06-02] MEDS: SENNOSIDES-DOCUSATE SODIUM 1 EACH TAB PO SCH (20:38)
[2022-06-03] MEDS: HYDROcodone/APAP 7.5-325MG 1 EACH TAB PO PRN ×4 (00:16→18:28)
[2022-06-03 06:07] LABS: Glucose,Whole Blood 151 mg/dL (70-110)
[2022-06-03] MEDS: PANTOPRAZOLE 40 MG TABLET PO SCH ×2 (06:09→16:20)
[2022-06-03] MEDS: INSULIN ASPART (NovoLOG) 100 UNIT/ML VIAL SQ SCH ×4 (06:09→20:49)
[2022-06-03] MEDS: ASCORBIC ACID 500 MG TAB PO SCH ×2 (06:09→16:19)
[2022-06-03 07:06] LABS: Basophils # (A) 0.1 k/uL (0-0.2); Basophils % (A) 0 %; Eosinophils # (A) 0.5 k/uL (0-0.7); Eosinophils % (A) 3 %; HCT 30.8 % (34.0-46.0); HGB 10.1 gm/dL (11.4-16.0); Hypochromasia Slight; Lymphocytes # (A) 0.9 k/uL (1.0-4.8); Lymphocytes % (A) 6 %; MCH 31.4 pg (25.0-35.0); MCHC 32.8 g/dL (31.0-37.0); MCV 95.9 fL (80.0-100.0); Mean Platelet Volume 7.9; Monocytes # (A) 0.8 k/uL (0-1.0); Monocytes % (A) 5 %; Neutrophils # (A) 14.3 k/uL (1.3-7.7); Neutrophils % (A) 85 %; Platelet Count 350 k/uL (150-450); RBC 3.21 m/uL (3.80-5.40); RDW 15.2 % (11.5-15.5); WBC 16.9 k/uL (3.8-10.6)
--- NOTE | 2022-06-03 07:30 | XR ---
EXAMINATION TYPE: XR chest 2V DATE OF EXAM: 06/03/2022 6:18 AM COMPARISON: Chest radiograph from one day prior. TECHNIQUE: XR chest 2V Frontal and lateral views of the chest. CLINICAL INDICATION:Female, 61 years old with history of post op cardiac surgery; FINDINGS: Lungs/Pleura: There is no evidence of pleural effusion, focal consolidation, or pneumothorax. Pulmonary vascularity: Mild pulmonary vascular congestion. Heart/mediastinum: Cardiomediastinal silhouette is unremarkable. Post valve repair changes. Left atr ial appendage occlusion device is present. Musculoskeletal: No acute osseous pathology. IMPRESSION: Cardiomegaly and mild pulmonary vascular congestion no significant change from one day prior.
[2022-06-03 07:33] LABS: African American GFR (CKD) >90 (>60 ml/min/1.73 sqM); Anion Gap 9 mmol/L; Blood Urea Nitrogen 24 mg/dL (7-17); Calcium 8.4 mg/dL (8.4-10.2); Carbon Dioxide 33 mmol/L (22-30); Chloride 86 mmol/L (98-107); Glucose 139 mg/dL (74-99); Non-African American GFR(CKD) 89 (>60 ml/min/1.73 sqM); Potassium 3.5 mmol/L (3.5-5.1); Sodium 128 mmol/L (137-145)
--- NOTE | 2022-06-03 08:02 | P.PN ---
Subjective Progress Note Date: 06/03/22 PROGRESS NOTE The patient is a 61-year-old female with history of severe rheumatic mitral valve disease and severe pulmonary hypertension who underwent mitral valve replacement was a tricuspid valve repair on May 15. She is followed in the past but Dr. Sims. She is feeling well this morning, her breathing is better, she is ambulating in the unit. She denies any chest discomfort, dizziness or pa lpitations. She had abdominal distention that is improved. She is in sinus mechanism. She denies any nausea or vomiting. She has no palpitations or syncope. Medications: Amiodarone 200 mg daily, aspirin once a day, Lasix 40 mg daily, insulin, Lopressor 25 mg twice a day. PHYSICAL EXAMINATION: Blood pressure 128/90 heart rate 80 LUNGS: Clear to auscultation HEART: Regular rate and rhythm, S1, S2. No S3. systolic murmur at the base ABDOMEN: Soft, nontender, no organomegaly EXTREMETIES: +1 edema LAB: Hemoglobin 10.1, BUN 24, creatinine 0.74. White blood cell 16.9 IMPRESSION: 1. Status post mitral valve replacement and tricuspid valve repair 2. Leukocytosis, afebrile 3. Mild CAD 4. History of COPD PLAN: 1. Continue present therapy 2. Increase physical activity 3. Follow white blood cells 4. Probable discharge home soon and follow-up as an outpatient Objective - Vital Signs Vital signs: Vital Signs Temp 97.6 F 06/03/22 04:00 Pulse 84 06/03/22 04:00 Resp 17 06/03/22 04:00 BP 98/47 06/03/22 04:00 Pulse Ox 95 06/03/22 04:00 FiO2 50 05/22/22 16:00 Intake & Output 06/02/22 06/03/22 06/03/22 18:59 06:59 18:59 Intake Total 200 450 Output Total 1700 1150 Balance -1500 -700 Weight 86.4 kg Intake: Oral 200 450 Output: Urine 1700 1150 Other: Voiding Method Toilet Toilet # Voids 1 1 # Bowel Movements 1 1 ABP, PAP, CO, CI - Last Documented Arterial Blood Pressure 104/53 Pulmonary Artery Pressure 50/20 Cardiac Output 3.9 Cardiac Index 2.1 - Labs CBC & Chem 7: 06/03/22 06:37 12/12/22 06:37 Labs: Abnormal Lab Results - Last 24 Hours (Table) 06/02/22 06/02/22 06/02/22 Range/Units 04:38 12:03 16:35 WBC (3.8-10.6) k/uL RBC (3.80-5.40) m/uL Hgb (11.4-16.0) gm/dL Hct (34.0-46.0) % Neutrophils # (1.3-7.7) k/uL Lymphocytes # (1.0-4.8) k/uL Sodium (137-145) mmol/L Chloride (98-107) mmol/L Carbon Dioxide (22-30) mmol/L BUN (7-17) mg/dL Glucose (74-99) mg/dL POC Glucose (mg/dL) 116 H 149 H (70-110) mg/dL Procalcitonin 0.15 H (0.02-0.09) ng/mL 06/02/22 06/03/22 06/03/22 Range/Units 20:06 06:05 06:37 WBC 16.9 H (3.8-10.6) k/uL RBC 3.21 L (3.80-5.40) m/uL Hgb 10.1 L (11.4-16.0) gm/dL Hct 30.8 L (34.0-46.0) % Neutrophils # 14.3 H (1.3-7.7) k/uL Lymphocytes # 0.9 L (1.0-4.8) k/uL Sodium (137-145) mmol/L Chloride (98-107) mmol/L Carbon Dioxide (22-30) mmol/L BUN (7-17) mg/dL Glucose (74-99) mg/dL POC Glucose (mg/dL) 148 H 151 H (70-110) mg/dL Procalcitonin (0.02-0.09) ng/mL 06/03/22 Range/Units 06:37 WBC (3.8-10.6) k/uL RBC (3.80-5.40) m/uL Hgb (11.4-16.0) gm/dL Hct (34.0-46.0) % Neutrophils # (1.3-7.7) k/uL Lymphocytes # (1.0-4.8) k/uL Sodium 128 L (137-145) mmol/L Chloride 86 L (98-107) mmol/L Carbon Dioxide 33 H (22-30) mmol/L BUN 24 H (7-17) mg/dL Glucose 139 H (74-99) mg/dL POC Glucose (mg/dL) (70-110) mg/dL Procalcitonin (0.02-0.09) ng/mL
[2022-06-03] MEDS: HEPARIN SODIUM,PORCINE/PF 5,000 UNIT/0.5 ML SYRINGE SQ SCH ×3 (08:13→23:34)
[2022-06-03] MEDS: LACTULOSE 20 GM/30 ML CUP PO SCH (08:13)
[2022-06-03] MEDS: polyethylene glycoL 3350 17 GM POWD.PACK PO SCH (08:13)
[2022-06-03] MEDS: ASPIRIN 325 MG TAB PO SCH (08:14)
[2022-06-03] MEDS: SIMETHICONE 80 MG CHEWABLE PO SCH ×4 (08:14→20:49)
[2022-06-03] MEDS: CITALOPRAM HYDROBROMIDE 20 MG TAB PO SCH ×2 (08:14→20:48)
[2022-06-03] MEDS: AMIODARONE 200 MG TAB PO SCH (08:14)
[2022-06-03] MEDS: POTASSIUM CHLORIDE ER 20 MEQ TAB.ER PO SCH (08:14)
[2022-06-03] MEDS: METOPROLOL TARTRATE 25 MG TAB PO SCH ×2 (08:15→20:48)
[2022-06-03] MEDS ORDERED: FUROSEMIDE 40 MG TAB PO SCH (09:00)
[2022-06-03] MEDS: IPRATROPIUM-ALBUTEROL 3 ML NEB INHALATION SCH ×4 (09:14→22:24)
[2022-06-03] MEDS: SYMBICORT 160-4.5 MCG INHALER INHALATION SCH ×2 (09:14→22:24)
--- NOTE | 2022-06-03 10:10 | P.PN ---
Subjective Progress Note Date: 06/03/22 Principal diagnosis: Severe mitral valve regurgitation, moderate to severe rheumatic mitral valve stenosis, elevated liver enzymes likely rate related to hepatic congestion, acute on chronic diastolic congestive heart failure and constipation. Past medical history significant for pulmonary hypertension with a recent RVSP 86 mmHg, mild nonobstructive coronary artery disease by heart catheterization to her circumflex coronary artery, hypertension, chronic tobacco abuse although has not smoked in 3 weeks, COPD with a previous pulmonary function test showing an FEV1 of 42% of predicted value with a base volume of 1.04 L, history of SVT, remote history of pneumonia, history of depression and family history of coronary artery disease. POD #12 chordal preserving mitral valve replacement using a 27 mm Mosaic porcine bioprosthesis, tricuspid valve repair with ring annuloplasty using a 28 mm MC3 ring, exclusion of the left atrial appendage using a 35 mm AtriClip, intraopera tive transesophageal echocardiogram and epi-aortic scanning Postoperative acute blood loss anemia, expected given hemodilution and cardiopulmonary bypass pump. The patient was seen and examined in follow-up today 06/03/2000 2200 bedside in intensive care unit. Currently she is up ambulating in the room, is awake, oriented 3 and is in no acute apparent distress. She reports she feels much improved today from yesterday, currently denies any complaints of pain or shortness of breath. She reports her abdomen feels improved today, denies any complaints of nausea or vomiting. Her bowels have been moving and denies any complaints of diarrhea. Oxygen saturations are 95% on room air and she is achieving 1252 1500 mL on her incentive spirometry with encouragement. She continues to receive Lasix 40 mg IV daily for diuresis. Urine output in the last 8 hours was 1150 mL. Remote telemetry showing normal sinus rhythm heart rate 75 BPM. Laboratory results this morning show a CBC count of 16.9, hemoglobin 10.1, hematocrit 30.8, platelets 350, sodium 128, potassium 3.5, chloride 86, CO2 33, BUN 24, creatinine 0.74, glucose 139 and calcium 8.4. Chest x-ray was reviewed. She has been afebrile in the last 24 hours. She anxious to be discharged home. Flagyl and Rocephin have been discontinued by infectious disease and she was started on Eraxis by infectious disease. Objective - Vital Signs Vital signs: Vital Signs Temp 97.8 F 06/03/22 08:00 Pulse 84 06/03/22 09:25 Resp 18 06/03/22 09:25 BP 105/52 06/03/22 08:00 Pulse Ox 95 06/03/22 09:14 FiO2 50 05/22/22 16:00 Intake & Output 06/02/22 06/03/22 06/03/22 18:59 06:59 18:59 Intake Total 200 450 Output Total 1700 1150 Balance -1500 -700 Weight 86.4 kg Intake: Oral 200 450 Output: Urine 1700 1150 Other: Voiding Method Toilet Toilet Toilet # Voids 1 1 # Bowel Movements 1 1 ABP, PAP, CO, CI - Last Documented Arterial Blood Pressure 104/53 Pulmonary Artery Pressure 50/20 Cardiac Output 3.9 Cardiac Index 2.1 - Exam CONSTITUTIONAL: Ambulating in her room in the intensive care unit, appears comfortable, cooperative, no apparent acute distress. HEENT: Neck is supple, no JVD, no lymphadenopathy. RESPIRATORY: Lungs sounds essentially clear throughout, diminished to her bilateral bases. Respirations are symmetrical and nonlabored. Currently on room air oxygen saturations 95%. Able to achieve 6439-3918 mL on her incentive spirometry. Strong cough. CARDIOVASCULAR: Regular rhythm and rate. S1 and S2 present, negative for S3, gallop or murmur. Sternum is stable. Palpable peripheral pulses bilaterally, +1 edema to her bilateral lower extremities. No calf pain or tenderness noted. Heart hugger in place with patient demonstrating appropriate use. Knee-high MARIAM hose and sequential compression devices in place to her bilateral lower extremities. Remote telemetry showing normal sinus rhythm heart rate 75 bpm. GASTROINTESTINAL: Abdomen soft, nontender, distended. Active bowel sounds present 4 quadrants. Tolerating diet. Passing flatus. No guarding or rigidity. Bowel movement today 06/03/2022. No diarrhea. GENITOURINARY: Continues to void. 1150 mL output last 8 hours. INTEGUMENTARY: Skin is warm and dry with no evidence of clubbing or cyanosis. Midline sternal incision clean dry and well approximated, no redness or drainage.. NEUROLOGIC: Cranial nerves II through XII intact. No focal deficits. MUSKULOSKELETAL: Able to move all extremities, strength equal bilaterally. PSYCHIATRIC: Alert and oriented to person place and time, appropriate affect, intact judgment and insight. - Allied health notes Allied health notes reviewed: nursing - Labs CBC & Chem 7: 06/03/22 06:37 06/03/22 06:37 Labs: Abnormal Lab Results - Last 24 Hours (Table) 06/02/22 06/02/22 06/02/22 Range/Units 04:38 12:03 16:35 WBC (3.8-10.6) k/uL RBC (3.80-5.40) m/uL Hgb (11.4-16.0) gm/dL Hct (34.0-46.0) % Neutrophils # (1.3-7.7) k/uL Lymphocytes # (1.0-4.8) k/uL Sodium (137-145) mmol/L Chloride (98-107) mmol/L Carbon Dioxide (22-30) mmol/L BUN (7-17) mg/dL Glucose (74-99) mg/dL POC Glucose (mg/dL) 116 H 149 H (70-110) mg/dL Procalcitonin 0.15 H (0.02-0.09) ng/mL 06/02/22 06/03/22 06/03/22 Range/Units 20:06 06:05 06:37 WBC 16.9 H (3.8-10.6) k/uL RBC 3.21 L (3.80-5.40) m/uL Hgb 10.1 L (11.4-16.0) gm/dL Hct 30.8 L (34.0-46.0) % Neutrophils # 14.3 H (1.3-7.7) k/uL Lymphocytes # 0.9 L (1.0-4.8) k/uL Sodium (137-145) mmol/L Chloride (98-107) mmol/L Carbon Dioxide (22-30) mmol/L BUN (7-17) mg/dL Glucose (74-99) mg/dL POC Glucose (mg/dL) 148 H 151 H (70-110) mg/dL Procalcitonin (0.02-0.09) ng/mL 06/03/22 Range/Units 06:37 WBC (3.8-10.6) k/uL RBC (3.80-5.40) m/uL Hgb (11.4-16.0) gm/dL Hct (34.0-46.0) % Neutrophils # (1.3-7.7) k/uL Lymphocytes # (1.0-4.8) k/uL Sodium 128 L (137-145) mmol/L Chloride 86 L (98-107) mmol/L Carbon Dioxide 33 H (22-30) mmol/L BUN 24 H (7-17) mg/dL Glucose 139 H (74-99) mg/dL POC Glucose (mg/dL) (70-110) mg/dL Procalcitonin (0.02-0.09) ng/mL - Imaging and Cardiology Chest x-ray: report reviewed, image reviewed Assessment and Plan Assessment: 1. 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 Preserved left ventricular systolic function, moderate right ventricular dysfunction, EF 55-60% 3. Moderate tricuspid valve regurgitation, status post tricuspid valve repair 4. Acute on chronic diastolic heart failure 5. Transaminitis 6. History of mild nonobstructive coronary artery disease 7. Hypertension 8. Hyperlipidemia, treated, cholesterol 196, LDL 99, triglycerides 254 9. Abdominal distention, likely secondary to constipation 10. Previous tobacco dependence with recent cessation 11. Severe COPD, preoperative FEV1 42% of predicted 12. History of supraventricular tachycardia 13. Depression 14. Remote history of pneumonia 15. Family history of coronary artery disease 16. Postoperative acute blood loss anemia, expected 17. Leukocytosis, unspecified source Plan: 1. Continue to maximize medical therapy with aspirin, Plavix and beta vince. Statin was placed on hold by cardiology due to her liver enzymes trending up, continue amiodarone 200 mg by mouth daily. Continue to monitor AST and ALT, once normalized her statin will be restarted. 3. Encourage incentive spirometry use 10 times every hour while awake. Bronchodilators per pulmonology/critical care management. 4. Increase activity as tolerated. Ambulate in the intensive care unit hallway 3 times a day and when necessary. PT/OT/cardiac rehab following. Shower daily. 5. Will monitor daily labs and chest x-rays. Electrolyte replacement per protocol. Continue IV Lasix 40 mg daily. 6. GI/DVT prophylaxis. Continue protonix BID, tums PRN. 7. Pain control with current medication regimen. Avoid narcotics 8. Insulin management per internal medicine service. Preoperative hemoglobin A1c 6.4% 9. Strict accurate intake and output. Daily weights 10. Transfer orders for 3 S. cardiac stepdown unit when bed available. 11. Discharge planning in progress. Anticipate discharge to home with home care in 24 hours. 12. Eraxis management per infectious disease. 13. Constipation management per primary care and Gen. surgery recommendations. 14. More recommendations to follow based on patient's clinical course. Time with Patient: Greater than 30
[2022-06-03 11:58] LABS: Glucose,Whole Blood 122 mg/dL (70-110)
[2022-06-03] MEDS: FUROSEMIDE 10 MG/ML 4 ML VIAL IV SCH (12:16)
--- NOTE | 2022-06-03 12:23 | P.PN ---
Subjective Progress Note Date: 06/03/22 CHIEF COMPLAINT: Shortness of breath HISTORY OF PRESENT ILLNESS: Patient remains in the ICU status post mitral valve replacement and tricuspid valve repair. Surgical service following regards to abdominal pain and abdominal distention. Which is likely due to patient's fluid overload and constipation. Patient reports she is feeling better today. She is having bowel movements. She does reports that they are small but soft. She is having flatus. Her abdominal distention is slowly decreasing. She did report some nausea after taking medication this morning. She is tolerating diet. Afebrile. Her white count is elevated at 16.9. Hemoglobin 10.1 platelets 350 sodium is 128 potassium 3.5 creatinine 0.74 magnesium 2.0 glucose 122 PHYSICAL EXAM: VITAL SIGNS: Reviewed. GENERAL: Well-developed in no acute distress. HEENT: No sclera icterus. Extraocular movements grossly intact. Moist buccal mucosa. Head is atraumatic, normocephalic. ABDOMEN: Softer. Distended but decreased from yesterday. Minimal epigastric tenderness NEUROLOGIC: Alert and oriented. Cranial nerves II through XII grossly intact. Extremities: Edema bilaterally ASSESSMENT: 1. Abdominal pain and abdominal distention with computed tomography scan showing evidence of abdominal wall edema which is likely contributing to patient's abdominal distention as well as constipation 2. History of H. pylori 3. Status post mitral valve replacement and tricuspid valve repair 05/22/[address] Montaño 4. UTI 5. Hyponatremia 6. Leukocytosis 7. Hypomagnesemia improved 8. Mildly elevated LFTs PLAN: -Patient can be discharged from surgical standpoint when medically cleared -Continue good bowel regimen at home -Continue diuretics -Continue lactulose and stool softeners -Encouraged patient ambulate and increase activity level Physician Coding Support Specialist note has been reviewed by physician. Signing provider agrees with the documented findings, assessment, and plan of care. I have personally seen and examined the patient, reviewed the [employer] /PAs history, exam and MDM and agree with the assessment and plan as written. Based on total visit time, I have performed more than 50% of the visit. As above: Patient doing better over the weekend. No significant pain at this time. Abdominal exam fairly benign. Continue diet as tolerated. Objective - Vital Signs Vital signs: Vital Signs Temp 97.8 F 06/03/22 08:00 Pulse 84 06/03/22 09:25 Resp 18 06/03/22 09:25 BP 105/52 06/03/22 08:00 Pulse Ox 95 06/03/22 09:14 FiO2 50 05/22/22 16:00 Intake & Output 06/02/22 06/03/22 06/03/22 18:59 06:59 18:59 Intake Total 200 450 Output Total 1700 1150 1151 Balance -1500 -700 -1151 Weight 86.4 kg Intake: Oral 200 450 Output: Urine 1700 1150 1150 Stool 1 Other: Voiding Method Toilet Toilet Toilet # Voids 1 1 # Bowel Movements 1 1 ABP, PAP, CO, CI - Last Documented Arterial Blood Pressure 104/53 Pulmonary Artery Pressure 50/20 Cardiac Output 3.9 Cardiac Index 2.1 - Labs CBC & Chem 7: 06/03/22 06:37 06/03/22 06:37 Labs: Abnormal Lab Results - Last 24 Hours (Table) 06/02/22 06/02/22 06/03/22 Range/Units 16:35 20:06 06:05 WBC (3.8-10.6) k/uL RBC (3.80-5.40) m/uL Hgb (11.4-16.0) gm/dL Hct (34.0-46.0) % Neutrophils # (1.3-7.7) k/uL Lymphocytes # (1.0-4.8) k/uL Sodium (137-145) mmol/L Chloride (98-107) mmol/L Carbon Dioxide (22-30) mmol/L BUN (7-17) mg/dL Glucose (74-99) mg/dL POC Glucose (mg/dL) 149 H 148 H 151 H (70-110) mg/dL 06/03/22 06/03/22 06/03/22 Range/Units 06:37 06:37 11:56 WBC 16.9 H (3.8-10.6) k/uL RBC 3.21 L (3.80-5.40) m/uL Hgb 10.1 L (11.4-16.0) gm/dL Hct 30.8 L (34.0-46.0) % Neutrophils # 14.3 H (1.3-7.7) k/uL Lymphocytes # 0.9 L (1.0-4.8) k/uL Sodium 128 L (137-145) mmol/L Chloride 86 L (98-107) mmol/L Carbon Dioxide 33 H (22-30) mmol/L BUN 24 H (7-17) mg/dL Glucose 139 H (74-99) mg/dL POC Glucose (mg/dL) 122 H (70-110) mg/dL
[2022-06-03] MEDS: FLUCONAZOLE 100 MG TAB PO SCH (13:42)
--- NOTE | 2022-06-03 14:00 | P.PN ---
Subjective Progress Note Date: 06/03/22 Principal diagnosis: CHF Patient is a 60-year-old female with history of hypothyroidism, asthma/COPD, osteoarthritis presenting for elective right hip total arthroplasty. [facility] physicians has been consulted for medical management. Patient seen and examined at bedside. [] Pertinent positives and negatives as discussed in HPI, a complete review of systems was performed and all other systems are negative. Vital signs reviewed General: nontoxic, no distress, appears at stated age Derm: warm, dry Head: atraumatic, normocephalic, symmetric Eyes: EOMI, no lid lag, anicteric sclera, pupils equal round reactive to light ENT: Nose and ears atraumatic Neck: No thyromegaly, supple Mouth: no lip lesion, mucus membranes moist Cardiovascular: S1S2 reg, no murmur, no edema Lungs: clear to auscultation bilateral, no rhonchi, no rales, no wheeze, no accessory muscle use Abdominal: soft, nontender to palpation, no guarding, no appreciable organomegaly Ext: no gross muscle atrophy, muscle strength muscle strength 5 out of 5 in all 4 extremities, no contractures Neuro: CN II-XII grossly intact Psych: Alert, oriented, appropriate affect Assessment/Plan: Severe right hip osteoarthritis Status post total right hip arthroplasty DVT prophylaxis and pain management per surgery PT/OT Chronic medical problems: COPD/asthma Hypothyroidism -Currently on 2 L postop, continue to wean -Continue home therapy Thank you for allowing us to participate in the care of this pleasant patient. Do not hesitate to contact us with questions. Someone can be reached from the [facility] hospitalist group all hours of the day at [phone] or via [employer]. 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 The patient was recently admitted to the hospital from 04/25-04/27 for similar complaints, at which time she was diagnosed with the above mitral valve disease. The patient was advised to follow-up as an outpatient for an elective mitral valve repair/replacement with cardiothoracic surgery. Upon arrival at the emergency room vital signs were within normal limits. Chest CTA revealed no evidence of PE with a right pleural effusion. EKG revealed sinus tachycardia with PVCs at 102 bpm with no notable ST/T-wave changes noted as reviewed by me. Laboratory evaluation was remarkable for troponin of less than 0.012, proBNP 3870, AST 132, ALT 158, and alk phos 232 with a total bilirubin 1.4. She was admitted for acute exacerbation of right- sided heart failure in the setting of severe mitral valve disease. She was started on IV diuresis and cardiology was consulted. Cardiovascular surgery was also consulted. Patient underwent open heart surgery with mitral valve replacement, tricuspid valve repair, exclusion of the left atrial appendage with a 35mm atrial clip on 05/22. She was extubated on 05/22. Subjective: [] Pertinent positives and negatives as discussed above, a complete review of systems was performed and all other systems are negative. Vitals Signs Reviewed. General: non toxic, no distress, appears at stated age, obese Derm: no unusual rashes/lesions, warm Head: atraumatic, normocephalic, symmetric Eyes: EOMI, no lid lag, anicteric sclera, pupils equal round reactive to light ENT: Nose and ears atraumatic Neck: No cervical lymphadenopathy, trachea midline, supple Mouth: no lip lesion, mucus membranes moist Cardiovascular: S1S2 reg, systolic murmur appreciated, positive dorsalis pedis pulse bilateral, 1+ bilateral lower extremity pitting edema Lungs: minimal Bibasilar rales appreciated without wheezing, no accessory muscle use Abdominal: Distended with minimal tenderness, no guarding Ext: muscle strength 5 out of 5 in all 4 extremities grossly, no gross muscle atrophy, no contractures, Neuro: CN II-XI grossly intact, no gross focal neuro deficits Psych: Alert, oriented, appropriate affect Assessment and Plan: #Abdominal bloating #Constipation -Zofran and Reglan PRN for N/V -Simethicone -Continue with bowel regimen #Leukocytosis #UTI -now off antibiotics -managed by ID -leukocytosis possibly related to abdominal distension -patient also on PO antifungal, amio discontinued #Acute blood loss anemia -Expected result of surgery -s/p 2 unit PRBC -stable #Hyponatremia, probably hypervolemic -improving, on oral lasix #Acute exacerbation of right-sided heart failure, cor pulmonale in the setting of severe mitral valve disease #Severe mitral regurgitation with moderate to severe stenosis #Severe pulmonary hypertension #Nonobstructive coronary artery disease #Hypertension -Cardiothoracic surgery on board -Status post mitral valve replacement, tricuspid valve repair, exclusion of the left atrial appendage with a 35mm atrial clip 05/22 -Aspirin, Plavix, statin, beta vince - amio discontinued -Strict I's and O's, daily weights -on PO lasix #Transaminitis secondary to hepatic congestion -Improving with diuresis Resolved: Acute hypoxic respiratory failure, acute kidney injury DVT prophylaxis: Subcu heparin Likely discharge home tomorrow her infectious disease Objective - Vital Signs Vital signs: Vital Signs Temp 97.9 F 06/03/22 12:00 Pulse 84 06/03/22 13:18 Resp 18 06/03/22 13:18 BP 102/66 06/03/22 12:00 Pulse Ox 94 L 06/03/22 12:00 FiO2 50 05/22/22 16:00 Intake & Output 06/02/22 06/03/22 06/03/22 18:59 06:59 18:59 Intake Total 200 450 Output Total 1700 1150 1151 Balance -1500 -700 -1151 Weight 86.4 kg Intake: Oral 200 450 Output: Urine 1700 1150 1150 Stool 1 Other: Voiding Method Toilet Toilet Toilet # Voids 1 1 # Bowel Movements 1 1 ABP, PAP, CO, CI - Last Documented Arterial Blood Pressure 104/53 Pulmonary Artery Pressure 50/20 Cardiac Output 3.9 Cardiac Index 2.1 - Labs CBC & Chem 7: 06/03/22 06:37 06/03/22 06:37 Labs: Abnormal Lab Results - Last 24 Hours (Table) 06/02/22 06/02/22 06/03/22 Range/Units 16:35 20:06 06:05 WBC (3.8-10.6) k/uL RBC (3.80-5.40) m/uL Hgb (11.4-16.0) gm/dL Hct (34.0-46.0) % Neutrophils # (1.3-7.7) k/uL Lymphocytes # (1.0-4.8) k/uL Sodium (137-145) mmol/L Chloride (98-107) mmol/L Carbon Dioxide (22-30) mmol/L BUN (7-17) mg/dL Glucose (74-99) mg/dL POC Glucose (mg/dL) 149 H 148 H 151 H (70-110) mg/dL 12/12/22 12/12/22 12/12/22 Range/Units 06:37 06:37 11:56 WBC 16.9 H (3.8-10.6) k/uL RBC 3.21 L (3.80-5.40) m/uL Hgb 10.1 L (11.4-16.0) gm/dL Hct 30.8 L (34.0-46.0) % Neutrophils # 14.3 H (1.3-7.7) k/uL Lymphocytes # 0.9 L (1.0-4.8) k/uL Sodium 128 L (137-145) mmol/L Chloride 86 L (98-107) mmol/L Carbon Dioxide 33 H (22-30) mmol/L BUN 24 H (7-17) mg/dL Glucose 139 H (74-99) mg/dL POC Glucose (mg/dL) 122 H (70-110) mg/dL
[2022-06-03] MEDS ORDERED: ANIDULAFUNGIN 100 MG in SODIUM CHLORIDE 0.9% 100 ML IVPB SCH (16:00)
[2022-06-03 16:16] LABS: Glucose,Whole Blood 109 mg/dL (70-110)
[2022-06-03 16:48] LABS: Glucose,Whole Blood 139 mg/dL (70-110)
--- NOTE | 2022-06-03 17:50 | P.PN ---
Subjective Progress Note Date: 06/03/22 On 06/03/2022, the patient is being seen for a follow-up. The patient is postop day #12 and the patient underwent surgery for valve as the patient had severe mitral valve stenosis. 4 hypertension and recurrent episodes of pulmonary edema. Noted the preop LV function was essentially within normal limits. The patient is doing well for now. No specific complaints. She is on a combination of aspirin and Plavix and she is also beta blockers. The patient is using incentive spirometer. Had a repeat chest x-ray from today showed some small bilateral pleural effusion and the patient was given IV Lasix 40 mg daily basis. Pain is under adequate control for now. She has no specific complaints. Surg ical once is striking and intact. Blood work from today shows a white cell count of 16.2 with hemoglobin of 10.1 and a platelet count of 350. Sodium is at 129 with a BUN of 24 and a creatinine of 0.7. Objective - Vital Signs Vital signs: Vital Signs Temp 97.8 F 06/03/22 08:00 Pulse 95 06/03/22 08:00 Resp 17 06/03/22 08:00 BP 105/52 06/03/22 08:00 Pulse Ox 94 L 06/03/22 08:00 FiO2 50 05/22/22 16:00 Intake & Output 06/02/22 06/03/22 06/03/22 18:59 06:59 18:59 Intake Total 200 450 Output Total 1700 1150 Balance -1500 -700 Weight 86.4 kg Intake: Oral 200 450 Output: Urine 1700 1150 Other: Voiding Method Toilet Toilet Toilet # Voids 1 1 # Bowel Movements 1 1 ABP, PAP, CO, CI - Last Documented Arterial Blood Pressure 104/53 Pulmonary Artery Pressure 50/20 Cardiac Output 3.9 Cardiac Index 2.1 - Exam CONSTITUTIONAL: Ambulating in her room in the intensive care unit, appears co mfortable, cooperative, no apparent acute distress. HEENT: Neck is supple, no JVD, no lymphadenopathy. RESPIRATORY: Lungs sounds essentially clear throughout, diminished to her bilateral bases. Respirations are symmetrical and nonlabored. Currently on room air oxygen saturations 95%. Able to achieve 6640-0450 mL on her incentive spirometry. Strong cough. CARDIOVASCULAR: Regular rhythm and rate. S1 and S2 present, negative for S3, gallop or murmur. Sternum is stable. Palpable peripheral pulses bilaterally, +1 edema to her bilateral lower extremities. No calf pain or tenderness noted. Heart hugger in place with patient demonstrating appropriate use. Knee-high MARIAM hose and sequential compression devices in place to her bilateral lower extremities. Remote telemetry showing normal sinus rhythm heart rate 75 bpm. GASTROINTESTINAL: Abdomen soft, nontender, distended. Active bowel sounds present 4 quadrants. Tolerating diet. Passing flatus. No guarding or rigidity. Bowel movement today 06/03/2022. No diarrhea. GENITOURINARY: Continues to void. 1150 mL output last 8 hours. INTEGUMENTARY: Skin is warm and dry with no evidence of clubbing or cyanosis. Midline sternal incision clean dry and well approximated, no redness or drainage.. NEUROLOGIC: Cranial nerves II through XII intact. No focal deficits. MUSKULOSKELETAL: Able to move all extremities, strength equal bilaterally. PSYCHIATRIC: Alert and oriented to person place and time, appropriate affect, intact judgment and insight. - Labs CBC & Chem 7: 06/03/22 06:37 06/03/22 06:37 Labs: Abnormal Lab Results - Last 24 Hours (Table) 06/02/22 06/02/22 06/02/22 Range/Units 04:38 12:03 16:35 WBC (3.8-10.6) k/uL RBC (3.80-5.40) m/uL Hgb (11.4-16.0) gm/dL Hct (34.0-46.0) % Neutrophils # (1.3-7.7) k/uL Lymphocytes # (1.0-4.8) k/uL Sodium (137-145) mmol/L Chloride (98-107) mmol/L Carbon Dioxide (22-30) mmol/L BUN (7-17) mg/dL Glucose (74-99) mg/dL POC Glucose (mg/dL) 116 H 149 H (70-110) mg/dL Procalcitonin 0.15 H (0.02-0.09) ng/mL 06/02/22 06/03/22 06/03/22 Range/Units 20:06 06:05 06:37 WBC 16.9 H (3.8-10.6) k/uL RBC 3.21 L (3.80-5.40) m/uL Hgb 10.1 L (11.4-16.0) gm/dL Hct 30.8 L (34.0-46.0) % Neutrophils # 14.3 H (1.3-7.7) k/uL Lymphocytes # 0.9 L (1.0-4.8) k/uL Sodium (137-145) mmol/L Chloride (98-107) mmol/L Carbon Dioxide (22-30) mmol/L BUN (7-17) mg/dL Glucose (74-99) mg/dL POC Glucose (mg/dL) 148 H 151 H (70-110) mg/dL Procalcitonin (0.02-0.09) ng/mL 06/03/22 Range/Units 06:37 WBC (3.8-10.6) k/uL RBC (3.80-5.40) m/uL Hgb (11.4-16.0) gm/dL Hct (34.0-46.0) % Neutrophils # (1.3-7.7) k/uL Lymphocytes # (1.0-4.8) k/uL Sodium 128 L (137-145) mmol/L Chloride 86 L (98-107) mmol/L Carbon Dioxide 33 H (22-30) mmol/L BUN 24 H (7-17) mg/dL Glucose 139 H (74-99) mg/dL POC Glucose (mg/dL) (70-110) mg/dL Procalcitonin (0.02-0.09) ng/mL Assessment and Plan Plan: Postop day #12, status post mitral valve replacement, tricuspid valve repair, and exclusion of left atrial appendage. Routine postoperative ventilator management. Severe rheumatic mitral valve stenosis and severe pulmonary hypertension, with moderate mitral valve regurgitation. Chronic diastolic CHF. History of nonocclusive CAD. Hypertension. 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 History of supraventricular tachycardia. Postoperative blood loss. Postoperative atelectasis. Nonocclusive coronary artery disease Lower extremity edema secondary to above Hypertension Depression Hyperlipidemia Adequate performance of functional status Smoker Plan Patient is doing extremely well Pain is under adequate control and the patient is using the senna spirometer Surgical one-sided dry clean and intact Continue daily Lasix 40 mg every 24 hours Monitor the white cell count No need for antibiotic treatment at this point in time No signs of any infection or sepsis Continue metoprolol 25 mg by mouth twice a day Potassium replacement Continue aspirin and Plavix Increase mobility We'll continue to follow. 2 patient has adequate recovery following her mitral valve surgery.
[2022-06-03] MEDS: CALCIUM CARBONATE 500 MG CHEWABLE PO PRN (18:29)
[2022-06-03 20:17] LABS: Glucose,Whole Blood 156 mg/dL (70-110)
[2022-06-03] MEDS: SENNOSIDES-DOCUSATE SODIUM 1 EACH TAB PO SCH (20:48)
[2022-06-04] MEDS: HYDROcodone/APAP 7.5-325MG 1 EACH TAB PO PRN ×3 (00:51→15:30)
[2022-06-04 05:07] VITALS: RESP 18
[2022-06-04 06:35] LABS: Glucose,Whole Blood 119 mg/dL (70-110)
--- NOTE | 2022-06-04 06:59 | XR ---
EXAMINATION TYPE: XR chest 1V portable DATE OF EXAM: 06/04/2022 HISTORY: Postoperative cardiac surgery COMPARISON: 06/03/2022 TECHNIQUE: Single view of the chest is submitted. FINDINGS: Demonstrated are scattered senescent parenchymal change. Improved pulmonary venous congestion and pleural parenchymal basilar densities. The heart is stable. Hilar and mediastinal structures are within normal limits. Degenerative changes are seen of the dorsal spine. IMPRESSION: 1. Improved pulmonary venous congestion and pleural parenchymal basilar densities.
[2022-06-04 07:10] LABS: Basophils # (A) 0.1 k/uL (0-0.2); Basophils % (A) 1 %; Eosinophils # (A) 0.6 k/uL (0-0.7); Eosinophils % (A) 4 %; HCT 29.9 % (34.0-46.0); HGB 9.8 gm/dL (11.4-16.0); Hypochromasia Slight; Lymphocytes # (A) 1.1 k/uL (1.0-4.8); Lymphocytes % (A) 7 %; MCHC 32.9 g/dL (31.0-37.0); MCV 94.4 fL (80.0-100.0); Mean Platelet Volume 7.9; Monocytes # (A) 1.1 k/uL (0-1.0); Monocytes % (A) 6 %; Neutrophils # (A) 13.7 k/uL (1.3-7.7); Neutrophils % (A) 81 %; Platelet Count 360 k/uL (150-450); RBC 3.17 m/uL (3.80-5.40); RDW 15.4 % (11.5-15.5); WBC 16.9 k/uL (3.8-10.6)
[2022-06-04 07:22] LABS: ALT 66 U/L (4-34); AST 76 U/L (14-36); African American GFR (CKD) >90 (>60 ml/min/1.73 sqM); Albumin 3.7 g/dL (3.5-5.0); Alkaline Phosphatase 341 U/L (38-126); Anion Gap 7 mmol/L; Blood Urea Nitrogen 18 mg/dL (7-17); Calcium 8.6 mg/dL (8.4-10.2); Carbon Dioxide 34 mmol/L (22-30); Chloride 90 mmol/L (98-107); Glucose 105 mg/dL (74-99); Non-African American GFR(CKD) >90 (>60 ml/min/1.73 sqM); Potassium 3.5 mmol/L (3.5-5.1); Sodium 131 mmol/L (137-145); Total Bilirubin 0.6 mg/dL (0.2-1.3); Total Protein 6.4 g/dL (6.3-8.2)
--- NOTE | 2022-06-04 07:35 | P.PN ---
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 Past medical history significant for pulmonary hypertension with a recent RVSP 86 mmHg, mild nonobstructive coronary artery disease by heart catheterization to her circumflex coronary artery, hypertension, chronic tobacco abuse although has not smoked in 3 weeks, COPD with a previous pulmonary function test showing an FEV1 of 42% of predicted value with a base volume of 1.04 L, history of SVT, remote history of pneumonia, history of depression and family history of coronary artery disease. POD #13 chordal preserving mitral valve replacement using a 27 mm Mosaic porcine bioprosthesis, tricuspid valve repair with ring annuloplasty using a 28 mm MC3 ring, exclusion of the left atrial appendage using a 35 mm AtriClip, intraopera tive transesophageal echocardiogram and epi-aortic scanning Postoperative acute blood loss anemia, expected given hemodilution and cardiopulmonary bypass pump. The patient was seen and examined in follow-up today 06/04/2022 at her bedside in the intensive care unit. The patient reports that she feels much improved today, denies any complaints of pain or shortness of breath at this time. She reports she has been up ambulating in the intensive care unit hallway several times yesterday and during the evening. No further complaints of nausea, vomiting or abdominal distention. Oxygen saturation is 95% on room air and she is achieving 3197-2622 mL on her incentive spirometry with encouragement. Remote telemetry showing normal sinus rhythm heart rate 80 BPM. Laboratory results this morning show a WBC count of 16.9, hemoglobin 9.8, hematocrit 29.9, platelets 360, sodium 131, potassium 3.5, chloride 90, CO2 34, BUN 18, creatinine 0.61, glucose 105, calcium 8.6, AST 76 and ALT 66. She has been afebrile the last 24 hours. Chest x-ray was reviewed. She was started on Diflucan yesterday 100 mg by mouth daily managed by infectious disease. She continues on Lasix 40 mg IV daily. Objective - Vital Signs Vital signs: Vital Signs Temp 97.8 F 06/04/22 04:00 Pulse 80 06/04/22 04:00 Resp 18 06/04/22 04:00 BP 93/61 06/04/22 04:00 Pulse Ox 94 L 06/04/22 04:00 FiO2 50 05/22/22 16:00 Intake & Output 06/03/22 06/04/22 06/04/22 18:59 06:59 18:59 Intake Total 1240 400 Output Total 2049 900 Balance -810 -500 Weight 86 kg Intake: Oral 1240 400 Output: Urine 2049 Other: Voiding Method Toilet Toilet # Bowel Movements 1 ABP, PAP, CO, CI - Last Documented Arterial Blood Pressure 104/53 Pulmonary Artery Pressure 50/20 Cardiac Output 3.9 Cardiac Index 2.1 - Exam CONSTITUTIONAL: Sitting up to the bedside chair in the intensive care unit, appears comfortable, cooperative, no apparent acute distress. HEENT: Neck is supple, no JVD, no lymphadenopathy. RESPIRATORY: Lungs sounds essentially clear throughout, diminished to her bilateral bases. Respirations are symmetrical and nonlabored. Currently on room air oxygen saturations 95%. Able to achieve 5262-9099 mL on her incentive spirometry. Strong cough. CARDIOVASCULAR: Regular rhythm and rate. S1 and S2 present, negative for S3, gallop or murmur. Sternum is stable. Palpable peripheral pulses bilaterally, trace edema to her bilateral lower extremities. No calf pain or tenderness noted. Heart hugger in place with patient demonstrating appropriate use. Knee- high MARIAM hose and sequential compression devices in place to her bilateral lower extremities. Remote telemetry showing normal sinus rhythm heart rate 80 bpm. GASTROINTESTINAL: Abdomen soft, nontender, distended. Active bowel sounds pre sent 4 quadrants. Tolerating diet. Passing flatus. No guarding or rigidity. Bowel movement yesterday 06/03/2022. No diarrhea. GENITOURINARY: Continues to void. 900 mL output last 8 hours. INTEGUMENTARY: Skin is warm and dry with no evidence of clubbing or cyanosis. Midline sternal incision clean dry and well approximated, no redness or drainage. NEUROLOGIC: Cranial nerves II through XII intact. No focal deficits. MUSKULOSKELETAL: Able to move all extremities, strength equal bilaterally. PSYCHIATRIC: Alert and oriented to person place and time, appropriate affect, intact judgment and insight. - Allied health notes Allied health notes reviewed: nursing - Labs CBC & Chem 7: 06/04/22 06:41 06/03/22 06:37 Labs: Abnormal Lab Results - Last 24 Hours (Table) 06/03/22 06/03/22 06/03/22 Range/Units 06:37 11:56 16:46 WBC (3.8-10.6) k/uL RBC (3.80-5.40) m/uL Hgb (11.4-16.0) gm/dL Hct (34.0-46.0) % Neutrophils # (1.3-7.7) k/uL Monocytes # (0-1.0) k/uL Sodium 128 L (137-145) mmol/L Chloride 86 L (98-107) mmol/L Carbon Dioxide 33 H (22-30) mmol/L BUN 24 H (7-17) mg/dL Glucose 139 H (74-99) mg/dL POC Glucose (mg/dL) 122 H 139 H (70-110) mg/dL 06/03/22 06/04/22 06/04/22 Range/Units 20:15 06:34 06:41 WBC 16.9 H (3.8-10.6) k/uL RBC 3.17 L (3.80-5.40) m/uL Hgb 9.8 L (11.4-16.0) gm/dL Hct 29.9 L (34.0-46.0) % Neutrophils # 13.7 H (1.3-7.7) k/uL Monocytes # 1.1 H (0-1.0) k/uL Sodium (137-145) mmol/L Chloride (98-107) mmol/L Carbon Dioxide (22-30) mmol/L BUN (7-17) mg/dL Glucose (74-99) mg/dL POC Glucose (mg/dL) 156 H 119 H (70-110) mg/dL - Imaging and Cardiology Chest x-ray: report reviewed, image reviewed Assessment and Plan Assessment: 1. 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 Preserved left ventricular systolic function, moderate right ventricular dysfunction, EF 55-60% 3. Moderate tricuspid valve regurgitation, status post tricuspid valve repair 4. Acute on chronic diastolic heart failure 5. Transaminitis 6. History of mild nonobstructive coronary artery disease 7. Hypertension 8. Hyperlipidemia, treated, cholesterol 196, LDL 99, triglycerides 254 9. Abdominal distention, likely secondary to constipation 10. Previous tobacco dependence with recent cessation 11. Severe COPD, preoperative FEV1 42% of predicted 12. History of supraventricular tachycardia 13. Depression 14. Remote history of pneumonia 15. Family history of coronary artery disease 16. Postoperative acute blood loss anemia, expected 17. Leukocytosis, unspecified source Plan: 1. Continue to maximize medical therapy with aspirin, Plavix and beta vince. Statin was placed on hold by cardiology due to her liver enzymes trending up. Continue to monitor AST and ALT, once normalized her statin will be restarted. 3. Encourage incentive spirometry use 10 times every hour while awake. Bronchodilators per pulmonology/critical care management. 4. Increase activity as tolerated. Ambulate in the intensive care unit hallway 3 times a day and when necessary. PT/OT/cardiac rehab following. Shower daily. 5. Will monitor daily labs and chest x-rays. Electrolyte replacement per protocol. Continue IV Lasix 40 mg daily. 6. GI/DVT prophylaxis. Continue protonix BID, tums PRN. 7. Pain control with current medication regimen. Avoid narcotics 8. Insulin management per internal medicine service. Preoperative hemoglobin A1c 6.4% 9. Strict accurate intake and output. Daily weights 10. Transfer orders for 3 S. cardiac stepdown unit when bed available. 11. Discharge planning in progress. Anticipate discharge to home with home care in 24 hours. 12. Diflucan management per infectious disease. 13. Constipation management per primary care and Gen. surgery recommendations. 14. More recommendations to follow based on patient's clinical course. Time with Patient: Greater than 30
[2022-06-04] MEDS: CALCIUM CARBONATE 500 MG CHEWABLE PO PRN (07:37)
[2022-06-04] MEDS: ASCORBIC ACID 500 MG TAB PO SCH (07:38)
[2022-06-04] MEDS: PANTOPRAZOLE 40 MG TABLET PO SCH (07:38)
[2022-06-04] MEDS: ASPIRIN 325 MG TAB PO SCH (07:38)
[2022-06-04] MEDS: LACTULOSE 20 GM/30 ML CUP PO SCH (07:38)
[2022-06-04] MEDS: HEPARIN SODIUM,PORCINE/PF 5,000 UNIT/0.5 ML SYRINGE SQ SCH (07:38)
[2022-06-04] MEDS: CITALOPRAM HYDROBROMIDE 20 MG TAB PO SCH (07:38)
[2022-06-04] MEDS: polyethylene glycoL 3350 17 GM POWD.PACK PO SCH (07:38)
[2022-06-04] MEDS: METOPROLOL TARTRATE 25 MG TAB PO SCH (07:38)
[2022-06-04] MEDS: FUROSEMIDE 10 MG/ML 4 ML VIAL IV SCH (07:39)
[2022-06-04] MEDS: FLUCONAZOLE 100 MG TAB PO SCH (07:39)
[2022-06-04] MEDS: SIMETHICONE 80 MG CHEWABLE PO SCH ×2 (07:40→12:44)
[2022-06-04] MEDS: INSULIN ASPART (NovoLOG) 100 UNIT/ML VIAL SQ SCH ×2 (07:41→12:43)
[2022-06-04] MEDS: POTASSIUM CHLORIDE ER 20 MEQ TAB.ER PO SCH (07:49)
[2022-06-04] MEDS ORDERED: POTASSIUM CHLORIDE ER 20 MEQ TAB.ER PO STA (08:46)
--- NOTE | 2022-06-04 09:02 | P.PN ---
Subjective Progress Note Date: 06/04/22 PROGRESS NOTE The patient is a 61-year-old female with history of severe rheumatic mitral valve disease and severe pulmonary hypertension who underwent mitral valve replacement was a tricuspid valve repair on May 15. She is followed in the past but Dr. Sims. She is feeling well this morning, her breathing is better, she is ambulating in the unit. She denies any chest discomfort, dizziness or pa lpitations. She had abdominal distention that is improved. She is in sinus mechanism. She denies any nausea or vomiting. She has no palpitations or syncope. June 04: She is feeling well this morning, anxious to go home. She continues to be in sinus mechanism. She denies any chest discomfort, dizziness or palpitations. Hemodynamically she is stable. She denies any nausea or vomiting. Her amiodarone was stopped yesterday to start Diflucan because of the leukocytosis of unclear etiology. Medications: Diflucan, aspirin once a day, Lasix 40 mg daily, insulin, Lopressor 25 mg twice a day. PHYSICAL EXAMINATION: Blood pressure 112/60 heart rate 80 LUNGS: Clear to auscultation HEART: Regular rate and rhythm, S1, S2. No S3. systolic murmur at the base ABDOMEN: Soft, nontender, no organomegaly EXTREMETIES: Trace edema LAB: Hemoglobin 9.8, BUN 18, creatinine 0.61. White blood cell 16.9 IMPRESSION: 1. Status post mitral valve replacement and tricuspid valve repair 2. Leukocytosis, afebrile, source unclear 3. Mild CAD 4. History of COPD PLAN: 1. Continue present therapy 2. Increase physical activity 3. Follow white blood cells 4. Probable discharge home soon and follow-up as an outpatient Objective - Vital Signs Vital signs: Vital Signs Temp 97.7 F 06/04/22 07:51 Pulse 84 06/04/22 07:51 Resp 18 06/04/22 07:51 BP 112/61 06/04/22 07:51 Pulse Ox 95 06/04/22 07:56 FiO2 50 05/22/22 16:00 Intake & Output 06/03/22 06/04/22 06/04/22 18:59 06:59 18:59 Intake Total 1240 400 360 Output Total 2049 900 Balance -810 -500 360 Weight 86 kg Intake: Oral 1240 400 360 Output: Urine 2050 900 Other: Voiding Method Toilet Toilet Toilet # Bowel Movements 1 ABP, PAP, CO, CI - Last Documented Arterial Blood Pressure 104/53 Pulmonary Artery Pressure 50/20 Cardiac Output 3.9 Cardiac Index 2.1 - Labs CBC & Chem 7: 06/04/22 06:41 06/04/22 06:41 Labs: Abnormal Lab Results - Last 24 Hours (Table) 06/03/22 06/03/22 06/03/22 Range/Units 11:56 16:46 20:15 WBC (3.8-10.6) k/uL RBC (3.80-5.40) m/uL Hgb (11.4-16.0) gm/dL Hct (34.0-46.0) % Neutrophils # (1.3-7.7) k/uL Monocytes # (0-1.0) k/uL Sodium (137-145) mmol/L Chloride (98-107) mmol/L Carbon Dioxide (22-30) mmol/L BUN (7-17) mg/dL Glucose (74-99) mg/dL POC Glucose (mg/dL) 122 H 139 H 156 H (70-110) mg/dL AST (14-36) U/L ALT (4-34) U/L Alkaline Phosphatase (38-126) U/L C-Reactive Protein (<1.0) mg/dL 06/04/22 06/04/22 06/04/22 Range/Units 06:34 06:41 06:41 WBC 16.9 H (3.8-10.6) k/uL RBC 3.17 L (3.80-5.40) m/uL Hgb 9.8 L (11.4-16.0) gm/dL Hct 29.9 L (34.0-46.0) % Neutrophils # 13.7 H (1.3-7.7) k/uL Monocytes # 1.1 H (0-1.0) k/uL Sodium 131 L (137-145) mmol/L Chloride 90 L (98-107) mmol/L Carbon Dioxide 34 H (22-30) mmol/L BUN 18 H (7-17) mg/dL Glucose 105 H (74-99) mg/dL POC Glucose (mg/dL) 119 H (70-110) mg/dL AST 76 H (14-36) U/L ALT 66 H (4-34) U/L Alkaline Phosphatase 341 H (38-126) U/L C-Reactive Protein 3.0 H (<1.0) mg/dL
[2022-06-04] MEDS: SYMBICORT 160-4.5 MCG INHALER INHALATION SCH (10:03)
[2022-06-04] MEDS: IPRATROPIUM-ALBUTEROL 3 ML NEB INHALATION SCH ×3 (10:03→16:45)
[2022-06-04] MEDS ORDERED: AMOXIC-POT CLAV 875-125MG 1 EACH TAB PO SCH (10:30)
--- NOTE | 2022-06-04 10:39 | P.PN ---
Subjective Progress Note Date: 06/04/22 Principal diagnosis: CHF Hospital Course: 61-year-old female with recently diagnosed rheumatic mitral valve disease with severe stenosis and regurg, severe pulmonary hypertension, and HTN who presented to the emergency room with complaints of shortness of breath, lower extremity edema, and abdominal distention. The patient was recently admitted to the hospital from 04/25-04/27 for similar complaints, at which time she was diagnosed with the above mitral valve disease. The patient was advised to follow-up as an outpatient for an elective mitral valve repair/replacement with cardiothoracic surgery. Upon arrival at the emergency room vital signs were within normal limits. Chest CTA revealed no evidence of PE with a right pleural effusion. EKG revealed sinus tachycardia with PVCs at [address]pm with no notable ST/T-wave changes noted as reviewed by me. Laboratory evaluation was remarkable for troponin of less than 0.012, proBNP 3870, AST 132, ALT 158, and alk phos 232 with a total bilirubin 1.4. She was admitted for acute exacerbation of right- sided heart failure in the setting of severe mitral valve disease. She was started on IV diuresis and cardiology was consulted. Cardiovascular surgery was also consulted. Patient underwent open heart surgery with mitral valve replacement, tricuspid valve repair, exclusion of the left atrial appendage with a 35mm atrial clip on 05/22. She was extubated on 05/22. Subjective: Patient seen and examined at bedside. No acute events overnight. Continues to have minimal abdominal distention and pain. Claims that she is having bowel movements. Denies any worsening chest pain, shortness of breath, nausea, v omiting, diarrhea, or constipation, or urinary complaints. She is eager to go home today. Pertinent positives and negatives as discussed above, a complete review of systems was performed and all other systems are negative. Vitals Signs Reviewed. General: non toxic, no distress, appears at stated age, obese Derm: no unusual rashes/lesions, warm Head: atraumatic, normocephalic, symmetric Eyes: EOMI, no lid lag, anicteric sclera, pupils equal round reactive to light ENT: Nose and ears atraumatic Neck: No cervical lymphadenopathy, trachea midline, supple Mouth: no lip lesion, mucus membranes moist Cardiovascular: S1S2 reg, systolic murmur appreciated, positive dorsalis pedis pulse bilateral, 1+ bilateral lower extremity pitting edema Lungs: minimal Bibasilar rales appreciated without wheezing, no accessory muscle use Abdominal: Distended with minimal tenderness, no guarding Ext: muscle strength 5 out of 5 in all 4 extremities grossly, no gross muscle atrophy, no contractures, Neuro: CN II-XI grossly intact, no gross focal neuro deficits Psych: Alert, oriented, appropriate affect Assessment and Plan: #Abdominal bloating #Constipation -Zofran and Reglan PRN for N/V -Simethicone -Continue with bowel regimen #Leukocytosis #UTI -Currently on Augmentin -managed by ID -leukocytosis possibly related to abdominal distension -patient also on PO antifungal, amio discontinued #Acute blood loss anemia -Expected result of surgery -s/p 2 unit PRBC -stable #Hyponatremia, probably hypervolemic -improving, on oral lasix #Acute exacerbation of right-sided heart failure, cor pulmonale in the setting of severe mitral valve disease #Severe mitral regurgitation with moderate to severe stenosis #Severe pulmonary hypertension #Nonobstructive coronary artery disease #Hypertension -Cardiothoracic surgery on board -Status post mitral valve replacement, tricuspid valve repair, exclusion of the left atrial appendage with a 35mm atrial clip 05/22 -Aspirin, Plavix, statin, beta vince - amio discontinued -Strict I's and O's, daily weights -on PO lasix #Transaminitis secondary to hepatic congestion -Improving with diuresis Resolved: Acute hypoxic respiratory failure, acute kidney injury DVT prophylaxis: Subcu heparin Medically optimized for discharge home today. Thank you for allowing us to participate in the care of this pleasant patient. Do not hesitate to contact us with questions. Someone can be reached from the [facility] hospitalist group all hours of the day at [phone] or via perfect serve. Objective - Vital Signs Vital signs: Vital Signs Temp 97.7 F 06/04/22 07:51 Pulse 80 06/04/22 10:12 Resp 18 06/04/22 07:51 BP 112/61 06/04/22 07:51 Pulse Ox 95 06/04/22 07:56 FiO2 50 05/22/22 16:00 Intake & Output 06/03/22 06/04/22 06/04/22 18:59 06:59 18:59 Intake Total 1240 400 360 Output Total 2049 900 Balance -810 -500 360 Weight 86 kg Intake: Oral 1240 400 360 Output: Urine 2049 900 Other: Voiding Method Toilet Toilet Toilet # Bowel Movements 1 ABP, PAP, CO, CI - Last Documented Arterial Blood Pressure 104/53 Pulmonary Artery Pressure 50/20 Cardiac Output 3.9 Cardiac Index 2.1 - Labs CBC & Chem 7: 06/04/22 06:41 06/04/22 06:41 Labs: Abnormal Lab Results - Last 24 Hours (Table) 06/03/22 06/03/22 06/03/22 Range/Units 11:56 16:46 20:15 WBC (3.8-10.6) k/uL RBC (3.80-5.40) m/uL Hgb (11.4-16.0) gm/dL Hct (34.0-46.0) % Neutrophils # (1.3-7.7) k/uL Monocytes # (0-1.0) k/uL Sodium (137-145) mmol/L Chloride (98-107) mmol/L Carbon Dioxide (22-30) mmol/L BUN (7-17) mg/dL Glucose (74-99) mg/dL POC Glucose (mg/dL) 122 H 139 H 156 H (70-110) mg/dL AST (14-36) U/L ALT (4-34) U/L Alkaline Phosphatase (38-126) U/L C-Reactive Protein (<1.0) mg/dL 06/04/22 06/04/22 06/04/22 Range/Units 06:34 06:41 06:41 WBC 16.9 H (3.8-10.6) k/uL RBC 3.17 L (3.80-5.40) m/uL Hgb 9.8 L (11.4-16.0) gm/dL Hct 29.9 L (34.0-46.0) % Neutrophils # 13.7 H (1.3-7.7) k/uL Monocytes # 1.1 H (0-1.0) k/uL Sodium 131 L (137-145) mmol/L Chloride 90 L (98-107) mmol/L Carbon Dioxide 34 H (22-30) mmol/L BUN 18 H (7-17) mg/dL Glucose 105 H (74-99) mg/dL POC Glucose (mg/dL) 119 H (70-110) mg/dL AST 76 H (14-36) U/L ALT 66 H (4-34) U/L Alkaline Phosphatase 341 H (38-126) U/L C-Reactive Protein 3.0 H (<1.0) mg/dL
[2022-06-04 11:53] LABS: Glucose,Whole Blood 167 mg/dL (70-110)
--- NOTE | 2022-06-04 12:42 | P.DS ---
Providers Date of admission: 05/15/22 20:19 Expected date of discharge: 06/04/22 Attending physician: Ninfa Montaño Consults: 05/15/22 23:40 Consult Physician Urgent Consulting Provider: Nayan Encarnacion Consult Reason/Comments: chf, mitral valve abnomralities Do you want consulting provider notified?: Yes 05/15/22 23:41 Consult Physician Urgent Consulting Provider: Ninfa Montaño Consult Reason/Comments: Rheumatic valve disea Do you want consulting provider notified?: Yes 05/18/22 07:07 Consult Physician Routine Consulting Provider: Valencia Araya Consult Reason/Comments: Pulmonary management Do you want consulting provider notified?: Already Contacted 05/21/22 09:44 Consult to Anesthesia Routine Consulting Provider: Anesthesia,Services Consult Reason/Comments: Cardiac Surgery Pre-Op 05/22/22 13:33 Consult Physician Routine Consulting Provider: Srikanth Barahona Consult Reason/Comments: med mgmt Do you want consulting provider notified?: Already Contacted 05/29/22 13:43 Consult Physician Routine Consulting Provider: Mauricio Castro Consult Reason/Comments: uti post valve surgery Do you want consulting provider notified?: Yes 05/30/22 09:16 Consult Physician Routine Consulting Provider: Helio Clement Consult Reason/Comments: Abdominal distention and bloating Do you want consulting provider notified?: Yes Primary care physician: Nirav Santos [place] [facility] Course: FINAL DIAGNOSIS: 1. Severe rheumatic mitral valve stenosis with severe pulmonary hypertension, moderate mitral valve regurgitation 2. Moderate tricuspid valve regurgitation 3. Preserved left ventricular systolic function, EF 55-60% 4. Acute on chronic diastolic heart failure 5. Transaminitis 6. Mild nonobstructive coronary artery disease 7. Hypertension 8. Hyperlipidemia, treated, cholesterol 196, LDL 99, triglycerides 254 9. Abdominal distention secondary to constipation 10. Previous tobacco dependence with recent cessation 11. Severe COPD, preoperative FEV1 32% of predicted 12. History of supraventricular tachycardia 13. Depression 14. Remote history of pneumonia 15. Family history of coronary artery disease 16. Postoperative acute blood loss anemia, expected 17. Leukocytosis, unspecified source PRINCIPAL PROCEDURE: 1. Chordal preserving mitral valve replacement using a 27 mm Mosaic porcine prosthesis 2. Tricuspid valve repair with ring annuloplasty using a 28 mm MC3 ring 3. Exclusion of the left atrial appendage using a 35 mm AtriClip 4. Intraoperative transesophageal echocardiogram and epi-aortic scanning HISTORY OF PRESENT ILLNESS: This is a 61-year-old female patient who follows on an outpatient basis with Dr. Santos for primary care and Dr. Sims for cardiology. She presented to [facility] emergency room in April of this year with complaints of chest pain radiating to her back and arm which had been intermittent for a year. She also endorsed shortness of breath, lower extremity edema, nausea/vomiting, and lightheadedness. She underwent workup during that admission including chest x-ray, CTA of the chest, EKG, lab work. Further an echocardiogram was completed demonstrating normal left ventricular systolic function with EF 50-55%, severe pulmonary hypertension with RVSP 86 mmHg, mildly increased left atrium with severely increased left atrial volume, severe mitral regurgitation, and mild to moderate pulmonary regurgitation. Subsequently it DENISE was completed demonstrating thickened mitral valve with restricted leaflet mobility, moderate to severe mitral regurgitation, mild MAC, severely enlarged left atrium, mild to moderate tricuspid regurgitation, and normal left ventricular systolic function. In addition a heart catheterization was completed demonstrating mild nonobstructive disease involving the circumflex coronary artery. Consultation was placed to Dr. Lerma from cardiothoracic surgery. She was recommended to undergo elective mitral valve replacement as well as tricuspid valve repair. The usual perioperative course was discussed in detail with the patient and her family, all risks and benefits were explained, all questions were answered, and consent was obtained to proceed with surgery. The patient was discharged to home on maximal medical therapy to return as an outpatient for surgery. She did follow-up in the office with Dr. Lerma to set a date for surgery, however she complained of severe shortness of breath as well as constipation/abdominal pain and distention which have been getting progressively worse over the previous 48-72 hours. Due to her symptoms she was recommended to go to the emergency room for workup prior to open heart surgery. HOSPITAL COURSE: Once she was felt to be tuned up and stable for surgery she was taken to the preoperative area 05/22/22, prepared in the usual fashion, and subsequently taken to the operating room where Dr. Montaño performed mitral valve replacement and tricuspid valve repair. Upon completion of surgery the patient was transferred to the cardiovascular intensive care unit where she was recovered and monitored hemodynamically. She was extubated, all lines, tubes, and drips were discontinued when appropriate, and transfer orders were placed for 3 S. cardiac stepdown unit, however there was no bed availability and the patient remained on ICU as a stepdown patient until discharge. She did have a bit of a zari recovery with continued abdominal distention which did resolve. Her oxygen was titrated down, she continued to work with physical and occupational therapy, she was tolerating oral diet, her pain was controlled, and she was ready to be discharged to home with [facility] care on postoperative day #13. She received written and verbal instruction regarding her medications, activity restrictions, signs and symptoms requiring physician notification, and follow-up appointments. Patient Condition at Discharge: Stable Plan - Discharge Summary Discharge Rx Participant: Yes New Discharge Prescriptions: New Fluconazole [Diflucan] 100 mg PO DAILY 3 Days #3 tab Potassium Chloride ER [K-Dur 20] 40 meq PO DAILY #30 tab polyethylene glycoL 3350 [Miralax] 17 gm PO DAILY #30 packet Simethicone Chew [Mylicon Chew] 80 mg PO QID PRN tab PRN Reason: See Comments Pantoprazole [Protonix] 40 mg PO AC-BID #60 tab Budesonide-Formot 160-4.5 Mcg [Symbicort 160-4.5 Mcg Inhaler] 2 puff INHALATION RT-BID #1 inh Calcium Carbonate [Tums] 500 mg PO TID PRN tab PRN Reason: Heartburn Acetaminophen Tab [Tylenol] 1,000 mg PO Q4HR PRN tab PRN Reason: Fever and/ or Mild Pain Amoxic-Pot Clav 875-125Mg [Augmentin 875-125] 1 each PO Q12HR 7 Days #13 tab Sennosides-Docusate Sodium [Senokot-S] 2 each PO HS PRN tab PRN Reason: Constipation Continue Citalopram Hydrobromide [CeleXA] 20 mg PO BID Aspirin 81 mg PO DAILY 90 Days #90 tab Atorvastatin [Lipitor] 20 mg PO DAILY 30 Days #30 tab Metoprolol Tartrate 25 mg PO BID 30 Days #60 tab clonazePAM [KlonoPIN] 0.5 mg PO BID PRN PRN Reason: Anxiety HYDROcodone/APAP 7.5-325MG [Waldron 7.5-325] 1 tab PO QID PRN PRN Reason: Pain Changed Furosemide [Lasix] 40 mg PO BID #60 tab Discontinued Potassium Chloride ER [K-Dur 10] 10 meq PO DAILY 30 Days #30 tab Nicotine 14Mg/24Hr Patch [Habitrol] 1 patch TRANSDERM DAILY PRN PRN Reason: SMOKING CESSATION Discharge Medication List Citalopram Hydrobromide [CeleXA] 20 mg PO BID 04/07/22 [History] HYDROcodone/APAP 7.5-325MG [Waldron 7.5-325] 1 tab PO QID PRN 04/07/22 [History] clonazePAM [KlonoPIN] 0.5 mg PO BID PRN 04/07/22 [History] Aspirin 81 mg PO DAILY 90 Days #90 tab 04/27/22 [Rx] Acetaminophen Tab [Tylenol] 1,000 mg PO Q4HR PRN tab 06/04/22 [Rx] Amoxic-Pot Clav 875-125Mg [Augmentin 875-125] 1 each PO Q12HR 7 Days #13 tab 06/04/22 [Rx] Atorvastatin [Lipitor] 20 mg PO DAILY 30 Days #30 tab 06/04/22 [Rx] Budesonide-Formot 160-4.5 Mcg [Symbicort 160-4.5 Mcg Inhaler] 2 puff INHALATION RT-BID #1 inh 06/04/22 [Rx] Calcium Carbonate [Tums] 500 mg PO TID PRN tab 06/04/22 [Rx] Fluconazole [Diflucan] 100 mg PO DAILY 3 Days #3 tab 06/04/22 [Rx] Furosemide [Lasix] 40 mg PO BID #60 tab 06/04/22 [Rx] Metoprolol Tartrate 25 mg PO BID 30 Days #60 tab 06/04/22 [Rx] Pantoprazole [Protonix] 40 mg PO AC-BID #60 tab 06/04/22 [Rx] Potassium Chloride ER [K-Dur 20] 40 meq PO DAILY #30 tab 06/04/22 [Rx] Sennosides-Docusate Sodium [Senokot-S] 2 each PO HS PRN tab 06/04/22 [Rx] Simethicone Chew [Mylicon Chew] 80 mg PO QID PRN tab 06/04/22 [Rx] polyethylene glycoL 3350 [Miralax] 17 gm PO DAILY #30 packet 06/04/22 [Rx] Follow up Appointment(s)/Referral(s): Loren Leiva, NPC [Nurse Practitioner] - 06/11/22 1:00 pm (You will be seen in the surgeon's office behind the hospital in [facility], [address] Office phone number is ) Rehab Martir MILES,Cardiac [NON-STAFF] - 4 Weeks (You will receive a phone call in approximately 4-6 weeks for evaluation for cardiac rehab) Ninfa Montaño MD [STAFF PHYSICIAN] - 06/28/22 10:30 am Nirav Santos MD [Primary Care Provider] - 2 Weeks (Please follow up in [address] Santos's walk-in clinic) Arnaldo Engel DO [Doctor of Osteopathic Medicine] - 06/28/22 8:45 am [facility], [NON-STAFF] - Yimi Sims MD [STAFF PHYSICIAN] - 06/12/22 4:15 pm Ambulatory/Diagnostic Orders: Complete Blood Count w/diff [LAB.AMB] Time Frame: 3 Days, Location: None Selected Comprehensive Metabolic Panel [LAB.AMB] Time Frame: 3 Days, Location: None Selected Activity/Diet/Wound Care/Special Instructions: DISCHARGE INSTRUCTIONS: 1. No driving for 4 weeks, or until physician gives their ok. 2. The patient should sleep in their own bed, no medical bed needed. 3. Stairs are not an issue. If the bedroom is upstairs, it is advised that the patient go up at night and down in the morning for the first week. Go slowly, using handrail and take 1 step at a time. 4. MARIAM hose are to be worn for 30 days post surgery or until physician discontinues. 5. Heart hugger is to be worn 100% of the time until physician discontinues.(except when showering) 6. No lifting, pushing, or pulling more than 10 pounds for 12 weeks. The physician will advise of any restriction changes. 7. The patient is expected to continue the prescribed walking program. 8. Continue pain control per as needed orders. 9. Continue with incentive spirometry and splinting/heart hugger until otherwise directed by the physician. 10. Must shower daily using liquid antibacterial soap 11. Routine sternal incision care. No powders, lotions, ointments on incisions. No dressings are necessary on incisions unless they are draining. Dermabond tape is to remain on sternal incision until surgeon follow-up. 12. Please call surgeon/KILN BURNER for temp greater than 101 F or purulent drainage from incisions. 13. You should weigh yourself daily, record and bring log with you to follow up appointments. 14. All prescriptions given by surgeon for 30 days. Refills need to be filled through roofing tile sorter/primary care physician. 15. A Red armband has been placed on the patient. It should be worn for 30 days post discharge from surgery and will be removed by the cardiac surgeons. If an ER visit is necessary, please make sure the number on the Red armband is called before going to ER. 16. You have been referred to and are expected to begin Cardiac Rehab in approximately 4-6 weeks. HOME HEALTH SERVICES TO PROVIDE: RN SKILLED HOME CARE SERVICES FOR POST-OP SURGICAL PATIENTS WITH THE FOLLOWING: Coronary Artery Bypass Surgery (CABG), Mitral Valve Replacement/Repair ( MVR), Aortic Valve Replacement/Repair (AVR) RN TO CONTINUE EDUCATION FROM ``ROAD TO A HEALTH HEART PATIENT EDUCATION MANUAL (GIVEN TO PATIENT IN THE HOSPITAL) MEDICATION RECONCILIATION WITH EDUCATION NEEDED ON FIRST HOME VISIT EMPHASIZE IMPORTANCE OF WEARING BREAST SUPPORT/HEART HUGGER ENCOURAGE USE OF INCENTIVE SPIROMETER 10 X EVERY HOUR WHILE AWAKE ENCOURAGE UTILIZATION OF LOWER EXTREMITY COMPRESSION STOCKINGS/MARIAM HOSE and ELEVATE LEGS ABOVE LEVEL OF HEART WHILE AT REST. ENCOURAGE AMBULATION 3-5x/day INCREASING TOLERATES, WHILE AVOIDING EXTREMES IN TEMPERATURE FREQUENCY: RN TO OPEN THE PATIENT WITHIN 24 HOURS OF DISCHARGE FROM THE HOSPITAL WITH TELEHEALTH INSTALLED AT [facility], RN TO VISIT 2-3 X A WEEK FOR 4 WEEKS ESTABLISHED BY PATIENT NEEDS. LABORATORY: CBC, CMP TO BE DRAWN ON THE THIRD DAY HOME, (RAN STAT) FAX RESULTS TO [phone]. TELEHEALTH PARAMETERS: WEIGHT: NOTIFY MD OF WEIGHT GAIN OF 2 LBS IN 24 HOURS OR 5 LBS IN ONE WEEK HR: NOTIFY MD OF HR <55 BPM OR HR>100 BPM BP: NOTIFY MD IF BP <90/55 OR BP>140/100 O2 SAT: NOTIFY MD IF PO2<93% ON ROOM AIR SEND TELEHEALTH REPORT TO HOT METAL CHARGER AND CARDIOVASCULAR SURGEON THE FIRST WEEK OF CARE AND THEN BI-WEEKLY. PLEASE ADDITIONALLY COMMUNICATE ANY ABNORMALS AND NEW FINDINGS TO THE SURGEONS OFFICE. Discharge Disposition: HOME WITH HOME HEALTH SERVICES
--- NOTE | 2022-06-04 12:53 | P.PN ---
Subjective Progress Note Date: 06/04/22 CHIEF COMPLAINT: Shortness of breath HISTORY OF PRESENT ILLNESS: Patient remains in the ICU status post mitral valve replacement and tricuspid valve repair. Surgical service following regards to abdominal pain and abdominal distention. Which is likely due to patient's fluid overload and constipation. Patient reports that she continues to feel better every day. She has been having bowel movements. Denies any nausea or vomiting. Her abdominal pain and distention have improved. She is tolerating diet. Afebrile. WBC remains elevated at 16.9 Hgb 9.8 LFTs trending downward PHYSICAL EXAM: VITAL SIGNS: Reviewed. GENERAL: Well-developed in no acute distress. HEENT: No sclera icterus. Extraocular movements grossly intact. Moist buccal mucosa. Head is atraumatic, normocephalic. ABDOMEN: Softer. Distended but decreased from yesterday. Nontender NEUROLOGIC: Alert and oriented. Cranial nerves II through XII grossly intact. ASSESSMENT: 1. Abdominal pain and abdominal distention with computed tomography scan showing evidence of abdominal wall edema which is likely contributing to hector schulz's abdominal distention as well as constipation 2. History of H. pylori 3. Status post mitral valve replacement and tricuspid valve repair 05/22/[address] Montaño 4. UTI 5. Hyponatremia 6. Leukocytosis 7. Hypomagnesemia improved 8. Mildly elevated LFTs PLAN: -Patient can be discharged from surgical standpoint when medically cleared -Continue good bowel regimen at home -Continue diuretics -Encouraged patient ambulate and increase activity level Physician Macerator Operator note has been reviewed by physician. Signing provider agrees with the documented findings, assessment, and plan of care. I have personally seen and examined the patient, reviewed the INVENTORY CLERK /PAs history, exam and MDM and agree with the assessment and plan as written. Based on total visit time, I have performed more than 50% of the visit. As above: Patient doing better. Mild bilateral upper abdominal discomfort at times. Feels tight but says it's much better than when she came into the hospital. She has less bloated she says. She is tolerating her diet. She would like to go home today. Patient's workup has showed mild gallbladder wall swelling. Not convinced this is continuing to her current symptoms. Regardless patient is doing better at this time and I'm comfortable with discharge. Follow-up as outpatient. Objective - Vital Signs Vital signs: Vital Signs Temp 97.7 F 06/04/22 07:51 Pulse 80 06/04/22 10:12 Resp 18 06/04/22 07:51 BP 112/61 06/04/22 07:51 Pulse Ox 95 06/04/22 07:56 FiO2 50 05/22/22 16:00 Intake & Output 06/03/22 06/04/22 06/04/22 18:59 06:59 18:59 Intake Total 1240 400 840 Output Total 2050 900 950 Balance -810 -500 -110 Weight 86 kg Intake: Oral 1240 400 840 Output: Urine 2049 900 950 Other: Voiding Method Toilet Toilet Toilet # Bowel Movements 1 ABP, PAP, CO, CI - Last Documented Arterial Blood Pressure 104/53 Pulmonary Artery Pressure 50/20 Cardiac Output 3.9 Cardiac Index 2.1 - Labs CBC & Chem 7: 06/04/22 06:41 06/04/22 06:41 Labs: Abnormal Lab Results - Last 24 Hours (Table) 06/03/22 06/03/22 06/04/22 Range/Units 16:46 20:15 06:34 WBC (3.8-10.6) k/uL RBC (3.80-5.40) m/uL Hgb (11.4-16.0) gm/dL Hct (34.0-46.0) % Neutrophils # (1.3-7.7) k/uL Monocytes # (0-1.0) k/uL Sodium (137-145) mmol/L Chloride (98-107) mmol/L Carbon Dioxide (22-30) mmol/L BUN (7-17) mg/dL Glucose (74-99) mg/dL POC Glucose (mg/dL) 139 H 156 H 119 H (70-110) mg/dL AST (14-36) U/L ALT (4-34) U/L Alkaline Phosphatase (38-126) U/L C-Reactive Protein (<1.0) mg/dL 06/04/22 06/04/22 06/04/22 Range/Units 06:41 06:41 11:51 WBC 16.9 H (3.8-10.6) k/uL RBC 3.17 L (3.80-5.40) m/uL Hgb 9.8 L (11.4-16.0) gm/dL Hct 29.9 L (34.0-46.0) % Neutrophils # 13.7 H (1.3-7.7) k/uL Monocytes # 1.1 H (0-1.0) k/uL Sodium 131 L (137-145) mmol/L Chloride 90 L (98-107) mmol/L Carbon Dioxide 34 H (22-30) mmol/L BUN 18 H (7-17) mg/dL Glucose 105 H (74-99) mg/dL POC Glucose (mg/dL) 167 H (70-110) mg/dL AST 76 H (14-36) U/L ALT 66 H (4-34) U/L Alkaline Phosphatase 341 H (38-126) U/L C-Reactive Protein 3.0 H (<1.0) mg/dL
[2022-06-04 14:00] VITALS: PULSE 74; TEMP 97.6
--- NOTE | 2022-06-04 14:09 | P.PN ---
Subjective Progress Note Date: 06/04/22 On 06/03/2022, the patient is being seen for a follow-up. The patient is postop day #12 and the patient underwent surgery for valve as the patient had severe mitral valve stenosis. 4 hypertension and recurrent episodes of pulmonary edema. Noted the preop LV function was essentially within normal limits. The patient is doing well for now. No specific complaints. She is on a combination of aspirin and Plavix and she is also beta blockers. The patient is using incentive spirometer. Had a repeat chest x-ray from today showed some small bilateral pleural effusion and the patient was given IV Lasix 40 mg daily basis. Pain is under adequate control for now. She has no specific complaints. Surg ical once is striking and intact. Blood work from today shows a white cell count of 16.2 with hemoglobin of 10.1 and a platelet count of 350. Sodium is at 129 with a BUN of 24 and a creatinine of 0.7. On 06/06/2022, the patient's postop day #13. Patient has no specific complaints. Patient is in [place]. The patient is currently on room air oxygen. Surgical 1 site is dry clean and intact. Abdomen is slightly distended. She is producing excellent Operative the patient has been diuresing well. No respiratory difficulties. No cardiac arrhythmias. No cardiac rhythm is sinus. The response of 16.9 with a hemoglobin of 9.8 and a platelet count of 360. BUN is 18 with a creatinine of 0.6 and a sodium level of 131. LFTs are slightly elevated yet they're quite stable with an AST of 76, ALP of 66, alkaline phosphatase of 341. Bilirubin is at 0.6. Objective - Vital Signs Vital signs: Vital Signs Temp 97.7 F 06/04/22 07:51 Pulse 84 06/04/22 07:51 Resp 18 06/04/22 07:51 BP 112/61 06/04/22 07:51 Pulse Ox 95 06/04/22 07:56 FiO2 50 05/22/22 16:00 Intake & Output 06/03/22 06/04/22 06/04/22 18:59 06:59 18:59 Intake Total 1240 400 360 Output Total 2049 900 Balance -810 -500 360 Weight 86 kg Intake: Oral 1240 400 360 Output: Urine 2049 Other: Voiding Method Toilet Toilet Toilet # Bowel Movements 1 ABP, PAP, CO, CI - Last Documented Arterial Blood Pressure 104/53 Pulmonary Artery Pressure 50/20 Cardiac Output 3.9 Cardiac Index 2.1 - Exam CONSTITUTIONAL: Ambulating in her room in the intensive care unit, appears comfortable, cooperative, no apparent acute distress. HEENT: Neck is supple, no JVD, no lymphadenopathy. RESPIRATORY: Lungs sounds essentially clear throughout, diminished to her bilateral bases. Respirations are symmetrical and nonlabored. Currently on room air oxygen saturations 95%. Able to achieve 1872-6755 mL on her incentive spirometry. Strong cough. CARDIOVASCULAR: Regular rhythm and rate. S1 and S2 present, negative for S3, gallop or murmur. Sternum is stable. Palpable peripheral pulses bilaterally, +1 edema to her bilateral lower extremities. No calf pain or tenderness noted. Heart hugger in place with patient demonstrating appropriate use. Knee-high MARIAM hose and sequential compression devices in place to her bilateral lower extremities. Remote telemetry showing normal sinus rhythm heart rate 75 bpm. GASTROINTESTINAL: Abdomen soft, nontender, distended. Active bowel sounds present 4 quadrants. Tolerating diet. Passing flatus. No guarding or rigidity. Bowel movement today 06/03/2022. No diarrhea. GENITOURINARY: Continues to void. 1150 mL output last 8 hours. INTEGUMENTARY: Skin is warm and dry with no evidence of clubbing or cyanosis. Midline sternal incision clean dry and well approximated, no redness or drainage.. NEUROLOGIC: Cranial nerves II through XII intact. No focal deficits. MUSKULOSKELETAL: Able to move all extremities, strength equal bilaterally. PSYCHIATRIC: Alert and oriented to person place and time, appropriate affect, intact judgment and insight. - Labs CBC & Chem 7: 06/04/22 06:41 06/04/22 06:41 Labs: Abnormal Lab Results - Last 24 Hours (Table) 06/03/22 06/03/22 06/03/22 Range/Units 11:56 16:46 20:15 WBC (3.8-10.6) k/uL RBC (3.80-5.40) m/uL Hgb (11.4-16.0) gm/dL Hct (34.0-46.0) % Neutrophils # (1.3-7.7) k/uL Monocytes # (0-1.0) k/uL Sodium (137-145) mmol/L Chloride (98-107) mmol/L Carbon Dioxide (22-30) mmol/L BUN (7-17) mg/dL Glucose (74-99) mg/dL POC Glucose (mg/dL) 122 H 139 H 156 H (70-110) mg/dL AST (14-36) U/L ALT (4-34) U/L Alkaline Phosphatase (38-126) U/L C-Reactive Protein (<1.0) mg/dL 06/04/22 06/04/22 06/04/22 Range/Units 06:34 06:41 06:41 WBC 16.9 H (3.8-10.6) k/uL RBC 3.17 L (3.80-5.40) m/uL Hgb 9.8 L (11.4-16.0) gm/dL Hct 29.9 L (34.0-46.0) % Neutrophils # 13.7 H (1.3-7.7) k/uL Monocytes # 1.1 H (0-1.0) k/uL Sodium 131 L (137-145) mmol/L Chloride 90 L (98-107) mmol/L Carbon Dioxide 34 H (22-30) mmol/L BUN 18 H (7-17) mg/dL Glucose 105 H (74-99) mg/dL POC Glucose (mg/dL) 119 H (70-110) mg/dL AST 76 H (14-36) U/L ALT 66 H (4-34) U/L Alkaline Phosphatase 341 H (38-126) U/L C-Reactive Protein 3.0 H (<1.0) mg/dL Assessment and Plan Plan: Postop day #13, status post mitral valve replacement, tricuspid valve repair, and exclusion of left atrial appendage. Routine postoperative ventilator management. Patient is currently on room air oxygen. The patient using the incentive spirometer. Severe rheumatic mitral valve stenosis and severe pulmonary hypertension, with moderate mitral valve regurgitation. Chronic diastolic CHF. History of nonocclusive CAD. Hypertension. 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 History of supraventricular tachycardia. Postoperative blood loss. Postoperative atelectasis. Nonocclusive coronary artery disease Lower extremity edema secondary to above Hypertension Depression Hyperlipidemia Adequate performance of functional status Smoker Diffuse anasarca, with fluid overload, improving. Abnormal LFTs, likely cholestatic picture. No evidence of any gallbladder infection or disease and the patient does not have any gallstones or signs of cholecystitis. Plan Leukocytosis, unexplained Patient is doing extremely well continue using incentive spirometer Surgical one-sided dry clean and intact Continue daily Lasix 40 mg every 24 hours Monitor the white cell count on an outpatient basis No signs of any infection or sepsis Continue metoprolol 25 mg by mouth twice a day Potassium replacement Continue aspirin and Plavix Increase mobility Discharge as per the surgical team
[2022-06-04 16:23] VITALS: BP 111/60
== END 2022-06-04 17:00 | disposition home health service (06) | DRG 219 ==
LOC: EC 16:05 → 3SCARD 20:19 → 2SICU 05-22 06:45
PROVIDERS: ADMIT Surgery; ATTEND Surgery
PROC: 02RG08Z Replacement of Mitral Valve with Zooplastic Tissue, Open Approach (ICD-10-PCS; principal; 2022-05-15)
PROC: 02UJ0JZ Supplement Tricuspid Valve with Synthetic Substitute, Open Approach (ICD-10-PCS; 2022-05-15)
PROC: 5A09357 Assistance with Respiratory Ventilation, Less than 24 Consecutive Hours, Continuous Positive Airway Pressure (ICD-10-PCS; 2022-05-15)
PROC: 02L70CK Occlusion of Left Atrial Appendage with Extraluminal Device, Open Approach (ICD-10-PCS; 2022-05-15)
PROC: 5A1221Z Performance of Cardiac Output, Continuous (ICD-10-PCS; 2022-05-15)
PROC: 30243N0 Transfusion of Autologous Red Blood Cells into Central Vein, Percutaneous Approach (ICD-10-PCS; 2022-05-15)
DX: I08.1 Rheumatic disorders of both mitral and tricuspid valves (principal); Z00.6 Encounter for examination for normal comparison and control in clinical research program; I50.33 Acute on chronic diastolic (congestive) heart failure; J96.01 Acute respiratory failure with hypoxia; N17.9 Acute kidney failure, unspecified; R18.8 Other ascites; E87.1 Hypo-osmolality and hyponatremia; D62 Acute posthemorrhagic anemia; J98.11 Atelectasis; I47.1 Supraventricular tachycardia; N39.0 Urinary tract infection, site not specified; I50.82 Biventricular heart failure; I27.29 Other secondary pulmonary hypertension; Z68.33 Body mass index [BMI] 33.0-33.9, adult; I11.0 Hypertensive heart disease with heart failure; K76.1 Chronic passive congestion of liver; J44.9 Chronic obstructive pulmonary disease, unspecified; E66.9 Obesity, unspecified; F32.A Depression, unspecified; E03.9 Hypothyroidism, unspecified; I27.81 Cor pulmonale (chronic); I95.9 Hypotension, unspecified; I49.3 Ventricular premature depolarization; K59.09 Other constipation; I49.1 Atrial premature depolarization; I25.10 Atherosclerotic heart disease of native coronary artery without angina pectoris; E78.5 Hyperlipidemia, unspecified; E83.42 Hypomagnesemia; R79.89 Other specified abnormal findings of blood chemistry; M16.11 Unilateral primary osteoarthritis, right hip; Z96.641 Presence of right artificial hip joint; F06.4 Anxiety disorder due to known physiological condition; R12 Heartburn; I44.0 Atrioventricular block, first degree; Z79.899 Other long term (current) drug therapy; Z79.82 Long term (current) use of aspirin; Z88.8 Allergy status to other drugs, medicaments and biological substances; Z87.891 Personal history of nicotine dependence; Z82.49 Family history of ischemic heart disease and other diseases of the circulatory system; Z91.048 Other nonmedicinal substance allergy status; Z87.01 Personal history of pneumonia (recurrent); Z86.19 Personal history of other infectious and parasitic diseases
CPT/HCPCS: 36415; 71045; 71046; 71275; 74018; 74177; 76700; 76705; 80048; 80053; 81001; 81003; 82330; 82805; 83036; 83690; 83735; 83880; 84145; 84484; 85025; 85027; 85379; 85520; 85610; 85730; 86140; 86850; 86891; 86900; 86901; 86920; 87086; 88305; 88311; 93005; 93306; 94002; 94640; 94660; 94760; 96374; 96375; 96376; 99291

== ENCOUNTER → 2024-12-16 | Outpatient (CLI) | payer OTHER ==
--- NOTE | 2024-12-16 15:05 | MM ---
Reason for Exam: Screening (asymptomatic). Last mammogram was performed 1 year(s) and 1 month(s) ago. Patient History: Menarche at age 13. First Full-Term at age 18. Hysterectomy at age 46. Postmenopausal. Maternal aunt had breast cancer. Maternal aunt had breast cancer. Maternal cousin had breast cancer, age 40. Risk Values: Ailyn 5 year model risk: 1.1%. NCI Lifetime model risk: 4.9%. Prior Study Comparison: 06/13/2000 Bilateral Diagnostic Mammogram, [facility]. 11/11/2023 Bilateral MG 3D screening mammo w/cad, [facility]. Tissue Density: There are scattered areas of fibroglandular density. Findings: Analyzed By CAD. Right breast: There is no suspicious group of microcalcifications or new suspicious mass. Left breast: There is no suspicious group of microcalcifications or new suspicious mass. Overall Assessment: Negative, BI-RAD 1 Management: Screening Mammogram of both breasts in [address] [facility] will attempt to contact patient to return for supplemental views and ultrasound if indicated. Patient should continue monthly self-breast exams. A clinical breast exam by your physician is recommended on an annual basis. This exam should not preclude additional follow-up of suspicious palpable abnormalities. Note on Ailyn scores and lifetime risk: 1. A Ailyn score greater than 3% is considered moderate risk. If this is the case, consider specialist referral to assess eligibility for a risk reducing agent. 2. If overall lifetime risk for the development of breast cancer is 20% or higher, the patient may qualify for future screening with alternating mammogram and breast MRI. [facility], , 12/16/2024 3:03 PM. Electronically signed and approved by: Arnaldo Gray DO
== END | disposition home or self-care (01) ==
LOC: RADMAMWWP 14:20
PROVIDERS: ATTEND Family Medicine
DX: Z12.31 Encounter for screening mammogram for malignant neoplasm of breast (principal); R92.323 Mammographic fibroglandular density, bilateral breasts; Z78.0 Asymptomatic menopausal state; Z80.3 Family history of malignant neoplasm of breast
CPT/HCPCS: 77063; 77067